=== PATIENT | female | born 1955 | race Caucasian/White ===

== ENCOUNTER → 2017-12-30 10:25 | Outpatient (CLI) | payer BC, SELFPAY ==
[2017-12-30 10:30] LABS: Red Blood Cells-Urine 0 SEEN /hpf (0-5)
[2017-12-30 12:20] LABS: Color, Urine Yellow (Yellow); Glucose, Dipstick Normal (Normal); Ketone-Dipstick Negative (Negative); Leukocyte Esterase-Dipstick 25 /ul (Negative); Nitrite-Dipstick Negative (Negative); Occult Blood-Urine Negative /ul (Negative); Protein-Dipstick 15 mg/dl (Negative); Specific Gravity, Urine 1.015 (1.002-1.030); Urine Bilirubin Dipstick Negative (Negative); Urine Clarity Cloudy (Clear); Urine Urobilinogen 4 mg/dl (Normal)
[2017-12-30 12:28] LABS: Bacteria 3+ /hpf (None Seen); Squamous Epithelial Cells - UA 25-50 SEEN /hpf (5-10); White Blood Cells 0-5 SEEN /hpf (0-5)
[2017-12-30 12:29] LABS: Mucous, Urine RARE /hpf (<or=2+)
[2017-12-30 12:49] LABS: Absolute Lymphocyte Count 2.27 X10^3/ul (0.83-4.51); Absolute Neutrophil Count 2.8 X10^3/uL (2.0-7.7); Basophil# 0.02 X10^3/uL; Basophil% 0.4 % (0-1); Eosinophil# 0.07 X10^3/uL; Eosinophils% 1.3 % (0-5); Hematocrit 43.6 % (37-47); Hemoglobin 14.3 g/dl (12.0-15.0); Lymphocyte # 2.27 X10^3/ul (4.0); Lymphocyte % 40.6 % (19-41); Mean Corp Hgb Conc 32.8 g/gl (32-36); Mean Corpuscular Hgb 32.6 pg (27.0-32.0); Mean Corpuscular Volume 99.5 fL (81-99); Mean Platelet Vol. 12.4 fl (6.2-12.0); Monocyte# 0.39 X10^3/uL; Neutrophil # 2.83 X10^3/uL (2.7-7.7); Neutrophil % 50.5 % (47-70); Platelet Count 171 K/mm3 (150-450); RBC Distribution Width CV 13.1 % (11.6-14.6); RBC Distribution Width SD 48.1 fl (35.1-43.9); Red Blood Count 4.38 M/mm3 (4.2-5.4); White Blood Count 5.6 K/mm3 (4.4-11.0)
[2017-12-30 12:50] LABS: POSITIVE COUNT NO; POSITIVE DIFFERENTIAL NO; POSITIVE MORPHOLOGY NO
[2017-12-30 13:12] LABS: BUN 14 mg/dL (7-18); Creatinine, Serum 0.86 mg/dL (0.55-1.02); Glucose 98 mg/dL (74-106)
[2017-12-30 13:13] LABS: ALB/GLOB Ratio 0.9 RATIO (0.9-2.4); AST(SGOT) 17 U/L (15-37); Alanine Aminotransfer ALT/SGPT 24 U/L (13-56); Albumin, Serum 3.5 g/dL (3.2-5.0); Alkaline Phosphatase 119 U/L (45-117); Anion Gap 6 (5-15); BUN/Creat Ratio 16.3 RATIO (10-20); Calcium,Total 8.9 mg/dL (8.5-10.1); Chloride 108 mmol/L (98-107); Cholesterol 204 mg/dL (200); EST Glomerular Filtration Rate 71 mL/min (>60); Est Glom Filt Rate - Afr Amer 86 mL/min (>60); Globulin 3.8 g/dL (2.2-4.2); High Density Lipoprotein 45 mg/dL; Protein, Total 7.3 g/dL (6.4-8.2); Sodium Level 142 mmol/L (136-145); T4 Free Direct 0.95 ng/dL (0.76-1.46); Thyroid Stim Hormone (TSH) 1.96 uIU/mL (0.358-3.74); Triglycerides 127 mg/dL; Very Low Density Lipoprotein 25 mg/dL (5-40)
== END ==
PROVIDERS: Family Provider Family Medicine; PCP Family Medicine; Visit Provider Family Medicine
DX: I10 Essential (primary) hypertension (principal); E01.0 Iodine-deficiency related diffuse (endemic) goiter; Z72.0 Tobacco use; E78.5 Hyperlipidemia, unspecified
CPT/HCPCS: 36415; 80053; 80061; 81001; 84439; 84443; 85025

== ENCOUNTER → 2018-01-06 07:38 | Outpatient (CLI) | payer BC, SELFPAY ==
--- NOTE | 2018-01-06 07:42 | US_ITS ---
STUDY: THYROID ULTRASOUND REASON FOR EXAM: Female, 62 years old. Thyromegaly TECHNIQUE: Ultrasound evaluation of the thyroid was performed with real-time and static argueta-scale imaging. COMPARISON: None. FINDINGS: RIGHT LOBE: The right lobe of the thyroid gland measures 5.4 x 1.9 x 2.0 cm. There is a homogeneous echotexture. There is a partially cystic mildly hypervascular 6 x 6 x 7 mm nodule within the right lobe of the gland. There is an additional ill-defined hyperechoic nodule within the right lobe which measures 5 x 5 x 4 mm that demonstrates no significant internal vascularity.. LEFT LOBE: The left lobe of the thyroid gland measures 4.7 x 1.4 x 1.4 cm. There is a homogeneous echotexture. There are no demonstrated solid, cystic or complex lesions. ISTHMUS: The isthmus measures 6.0 mm . US/Thyroid IMPRESSION: Enlarged thyroid gland. Two nodules within the right lobe of the gland the larger measuring up to 7 mm. Electronically Signed: Lisa Rojas MD at 17:40 EDT Tel , Service support ,
== END ==
LOC: US 07:40
PROVIDERS: Family Provider Family Medicine; PCP Family Medicine; Visit Provider Family Medicine
DX: E01.0 Iodine-deficiency related diffuse (endemic) goiter (principal)
CPT/HCPCS: 76536

== ENCOUNTER → 2018-01-20 06:24 | Outpatient (CLI) | payer BC, SELFPAY ==
--- NOTE | 2018-01-20 14:21 | PFTCOMP ---
COMPLETE PULMONARY FUNCTION TEST INTERPRETATION Brief HPI: Patient is a 62 year old female, currently under the care of Dr. Pelletier, who presents to [facility] for complete pulmonary function tests secondary to diagnosis of cough. Respiratory therapist reports good effort and reproducible results. Interpretation: Forced expiration spirometry shows no large airways obstructive ventilatory defect with an FEV1 of 82% predicted. There is no significant bronchodilator response by ATS criteria. Spirograms are of good quality and plateau normally. The respiratory flow volume loop shows a normal pattern. Lung volumes by body plethysmography show a decreased total lung capacity at 3.61 L, 68% predicted. All other lung volumes are reduced symmetrically. Diffusion capacity by carbon monoxide is decreased at 64% predicted. The airway resistance is normal. No previous pulmonary function tests were available for review. Impression: Moderate restrictive ventilatory defect with a symmetric reduction in diffusing capacity. Consider chest imaging to evaluate for interstitial lung disease if not completed previously.
== END ==
LOC: PSN 06:24
PROVIDERS: Family Provider Family Medicine; PCP Family Medicine; Visit Provider Family Medicine
DX: R05 Cough (principal)
CPT/HCPCS: 94060; 94726; 94729

== ENCOUNTER → 2018-01-27 08:47 | Outpatient (CLI) | payer BC, SELFPAY ==
--- NOTE | 2018-01-27 08:51 | RAD_ITS ---
STUDY: X-RAY CHEST REASON FOR EXAM: Female, 62 years old. Restrictive lung disease TECHNIQUE: Frontal and lateral views of the chest were obtained. COMPARISON: Chest radiographs dated March 13, 2014; chest CT dated April 13, 2014 FINDINGS: The lungs are adequately aerated. There are minimal increased markings in both lung bases. There is no demonstrated pleural abnormality. The cardiac silhouette is normal in size. The mediastinum and hilar regions are unremarkable. Normal visualized pulmonary arteries. There is atherosclerotic calcification of the thoracic aorta. There are diffuse degenerative changes of the visualized spine. There are degenerative changes in both shoulders. Cholecystectomy clips are present. RAD/Chest PA and Lateral IMPRESSION: No acute cardiopulmonary abnormalities. There is minimal atelectasis and/or scarring in the lung bases. Electronically Signed: Mariya Harris MD at 17:05 EDT Tel Direct: [phone], Service support ,
== END ==
PROVIDERS: Family Provider Family Medicine; PCP Family Medicine; Visit Provider Family Medicine
DX: J98.4 Other disorders of lung (principal)
CPT/HCPCS: 71046

== ENCOUNTER 2018-02-09 09:59 | Day surgery (SDC) | payer BC, SELFPAY ==
[2018-02-09 10:16] VITALS: BP 146/76; PULSE 58; RESP 16; TEMP 36.1; O2SAT 97; BMI 31.7
--- NOTE | 2018-02-09 11:00 | EGD_PTH ---
PATIENT: KEMAL SALGADO LOC: EN U#:[id number] AGE/SX: 62/F ROOM: RE02/09/[address]: Dr. David Palmer MD : 1955 BED: DIS: 02/09/2018 SPEC #: [id number] RECD: 02/09/18 14:21 STATUS: CARO GERHARD #: [id number] SONJA: 02/09/18 11:[address]: David Palmer DEPT: SURGICAL PATHOLOGY RECD BY: Wilton Herrera ENTERED: 02/10/18 07:34 SP TYPE: EGD BIOPSY OTHR DR: Dr. Miguel Ángel Miguel MD Tissues: Gastric mucous membrane Procedures: Surgery Specimen Level IV HEADER OPERATION: EGD ([facility] [place]) PRE-OP DIAGNOSIS: GERD, esophagitis TISSUE SUBMITTED: Gastric mass biopsy MICROSCOPIC DIAGNOSIS Gastric mass, biopsy: Fragments of hyperplastic/inflammatory polyp. Negative for malignancy. SJ:se 02/11/18 COMMENT Correlation with clinical, endoscopic findings and appropriate follow up are necessary. MICROSCOPIC DESCRIPTION Slides are reviewed. GROSS DESCRIPTION Received in fixative is one container labeled with the patient's name and designated gastric mass biopsy. The specimen consists of multiple irregular fragments of light gallardo soft tissue that in aggregate measure 0.8 x 0.5 x 0.1 cm. The specimen is totally submitted in one cassette. / SJ:se 02/10/18 TC:5 CPT: 18378
--- NOTE | 2018-02-09 11:23 | PCM.OPRPT ---
Problem List (1) Gastro-esophageal reflux disease without esophagitis Status: Acute Report of Operation Date of Procedure: 02/09/18 Pre-Operative Diagnosis: k21.9 gastroesophageal reflux disease without esophagitis Post-Operative Diagnosis: Same Surgery/Procedure Performed:: Esophagogastroduodenoscopy with biopsy Type of Anesthesia:: MAC Specimen's removed: Biopsy of Cardia of stomach near GE junction Description of Procedure: Patient was brought into the endoscopy suite. Back of her throat was sprayed with Cetacaine spray. Bite-block was placed. Graded anesthesia was given. She was placed in the left lateral decubitus position. Scope was inserted into the oropharynx and directed down through the esophagus into the stomach and into the duodenum. Operative findings: 1. Duodenum: Normal appearance no mass lesions no ulcerations. 2. Stomach: Prepyloric area looked normal. As did the body of the stomach. Retroflexion revealed an erythematous mass in the cardia very close to the GE junction I was only able to see it with retroflexion. I did obtain a few biopsies of this. The scope was unable to retroflex tightly enough upon itself for me to get any deep biopsies. It was friable and bled easily. 3. Esophagus: Normal esophagus no signs of esophagitis Z line was normal in appearance there was no signs of any masses. We will have to wait for these biopsy results to come back. If this comes back is something significant I may have my partner use an ERCP scope for possible laser ablation of this lesion. - Admit VTE Documentation VTE Present on Admission: No VTE Mechan Device Prophylaxis: None VTE Pharm Prophylaxis ordered?: No Reason prophylaxis not ordered:: Treatment Not Indicated
[2018-02-09 11:25] VITALS: BP 118/78; BP 146/76; PULSE 61; RESP 18; TEMP 36.3; O2SAT 92
[2018-02-09 11:30] VITALS: BP 126/79; BP 146/76; PULSE 60; RESP 18; O2SAT 92
[2018-02-09 11:35] VITALS: BP 122/83; BP 146/76; PULSE 58; RESP 18; O2SAT 93
[2018-02-09 11:37] VITALS: BP 118/85; BP 146/76; PULSE 58; RESP 18; TEMP 36.1; O2SAT 97
[2018-02-09 12:04] VITALS: BP 146/76
== END 2018-02-09 12:05 | disposition home or self-care (01) ==
LOC: EN 10:01 → AC 10:01
PROVIDERS: Family Provider Family Medicine; PCP Family Medicine; Visit Provider Surgery
PROC: 0DJ08ZZ Inspection of Upper Intestinal Tract, Via Natural or Artificial Opening Endoscopic (ICD-10-PCS; CPT 43235; principal; 2018-02-09 10:55)
DX: K31.7 Polyp of stomach and duodenum (principal); K21.9 Gastro-esophageal reflux disease without esophagitis; E78.00 Pure hypercholesterolemia, unspecified; I10 Essential (primary) hypertension; Z90.49 Acquired absence of other specified parts of digestive tract; F17.210 Nicotine dependence, cigarettes, uncomplicated; Z87.891 Personal history of nicotine dependence; Z79.899 Other long term (current) drug therapy
CPT/HCPCS: 43239; 88305; J7120

== ENCOUNTER 2018-04-28 06:20 | Day surgery (SDC) | payer BC, SELFPAY ==
[2018-04-28] VITALS (7 sets, daily range): BP systolic 116–135; BP diastolic 70–97; PULSE 52–69; RESP 14–18; TEMP 36.3–36.7; O2SAT 95–100; BMI 32.1
--- NOTE | 2018-04-28 | IMM_PTH ---
PATIENT: KEMAL SALGADO LOC: EN U#:[id number] AGE/SX: 62/F ROOM: RE04/28/[address]: Dr. German Henderson MD : 1955 BED: DIS: 04/28/2018 SPEC #: [id number] RECD: 04/29/18 12:18 STATUS: CARO GERHARD #: [id number] SONJA: 04/28/18 00:[address]: German Henderson DEPT: IMMUNOHISTOCHEMISTRY RECD BY: Melania Walker ENTERED: 04/29/18 12:18 SP TYPE: IMMUNO OTHR DR: Dr. Miguel Ángel Miguel MD Tissues: Stomach, NOS Procedures: H Pylori (initial) PHYSICIAN & INSTITUTION [place] [id number] SPECIMEN INFORMATION: Tissue Source: Proximal stomach biopsy Clinical Info: GERD Specimen Number: [id number] CPT code: 04746 METHODOLOGY: Deparaffinized sections of prefer/formalin-fixed tissue or PAP/DQ stained slides are incubated with monoclonal/polyclonal antibodies/oligonucleotide probes. Localization is made via biotin free immunoperoxidase method. Appropriate controls are performed and reacted as expected. Results on target cell population are indicated in the following table: RESULTS: ANTIBODY / CLONE RESULT H Pylori (polyclonal) negative These tests were developed and their performance characteristics determined by [facility]. They may not have been cleared or approved by the U.S. Food and Drug Administration. The FDA has determined that such clearance or approval is not necessary. INTERPRETATION: Proximal stomach biopsy: Negative for Helicobacter pylori organisms. STEFANO:se 04/30/18
--- NOTE | 2018-04-28 | STO_PTH ---
PATIENT: KEMAL SALGADO LOC: EN U#:[id number] AGE/SX: 62/F ROOM: RE04/28/[address]: Dr. German Henderson MD : 1955 BED: DIS: 04/28/2018 SPEC #: [id number] RECD: 04/28/18 11:34 STATUS: CARO GERHARD #: [id number] SONJA: 04/28/18 00:[address]: German Henderson DEPT: SURGICAL PATHOLOGY RECD BY: Harvey Huber ENTERED: 04/28/18 11:34 SP TYPE: STOMACH BX OTHR DR: Dr. Miguel Ángel Miguel MD Tissues: Stomach, NOS Procedures: Special Stain Group II Surgery Specimen Level IV Alcian Blue/PAS (control) HEADER OPERATION: EGD ([facility]) PRE-OP DIAGNOSIS: GERD TISSUE SUBMITTED: Proximal stomach biopsy MICROSCOPIC DIAGNOSIS Proximal stomach, biopsy: Fragments of gastric mucosa with changes consistent with inflammatory/hyperplastic polyp. Mild gastritis. Negative for malignancy. See microscopic description and comment. STEFANO:se 04/29/18 COMMENT The results of immunohistochemistry for Helicobacter pylori will be reported separately ([id number]). Alcian blue/PAS stain with matched control is used in the evaluation of the specimen to rule out and negative for intestinal metaplasia. Please make reference to previous specimen ([id number]), gastric mass, biopsy with diagnosis of fragments of hyperplastic/inflammatory polyp and negative for malignancy. MICROSCOPIC DESCRIPTION Slides are reviewed. The specimen shows fragments of gastric mucosa with chronic inflammatory cell infiltrates in the lamina propria consisting of lymphocytes and plasma cells, consistent with mild chronic gastritis and focal changes consistent with inflammatory/hyperplastic polyp. GROSS DESCRIPTION Received in fixative is one container labeled with the patient's name and designated proximal stomach biopsy. The specimen consists of multiple irregular fragments of light gallardo soft tissue that in aggregate measure 2 x 0.4 x 0.1 cm. The specimen is totally submitted in one cassette. / STEFANO:se 04/28/18 TC:5 [facility]: [id number], [id number]
--- NOTE | 2018-04-28 07:50 | OP.ENDO_ITS ---
Patient Name: Isabel Sahni Procedure Date: 04/28/2018 7:25 AM Date of : 1955 Age: 62 Procedure: Upper GI endoscopy Indications: Gastro-esophageal reflux disease. Mass just distal to GE junction Providers: German Henderson MD Medicines: Monitored Anesthesia Care Patient Profile: This is a 62 year old female. She had a mass just distal to GE junction unable to be biopsied with EGD scope due to location. Complications: No immediate complications. Estimated blood loss: Minimal. Procedure: Pre-Anesthesia Assessment: - Prior to the procedure, a History and Physical was performed, and patient medications and allergies were reviewed. The patient's tolerance of previous anesthesia was also reviewed. The risks and benefits of the procedure and the sedation options and risks were discussed with the patient. All questions were answered, and informed consent was obtained. Prior Anticoagulants: The patient has taken no previous anticoagulant or antiplatelet agents. After reviewing the risks and benefits, the patient was deemed in satisfactory condition to undergo the procedure. After obtaining informed consent, the endoscope was passed under direct vision. Throughout the procedure, the patient's blood pressure, pulse, and oxygen saturations were monitored continuously. The [id number] endoscope was introduced through the mouth, and advanced to the duodenal bulb. The upper GI endoscopy was accomplished without difficulty. The patient tolerated the procedure well. Scope In: 7:35:53 AM Scope Out: 7:43:51 AM Total Procedure Duration Time 0 hours 7 minutes 58 seconds Findings: A large, polypoid, non-circumferential mass with no bleeding and no stigmata of recent bleeding was found in the cardia. Biopsies were taken with a cold forceps for histology. 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 Biopsied. Recommendation: - Await pathology results. - Resume previous diet. - Continue present medications. - Await pathology results. - Discharge patient to home. - Physician's office will call you with pathology results and recommendations for when to repeat colonoscopy. Procedure Code(s): --- Professional --- 91193, Esophagogastroduodenoscopy, flexible, transoral; with biopsy, single or multiple Diagnosis Code(s): --- Professional --- D49.0, Neoplasm of unspecified behavior of digestive system K21.9, Gastro-esophageal reflux disease without esophagitis CPT copyright 2017 [employer]. All rights reserved. The codes documented in this report are preliminary and upon agency operator review may be revised to meet current compliance requirements. German Henderson MD 04/28/2018 7:50:09 AM This report has been signed electronically. Number of Addenda: 0 Note Initiated On: 04/28/2018 7:25 AM
== END 2018-04-28 08:32 | disposition home or self-care (01) ==
LOC: EN 06:22 → AC 06:23
PROVIDERS: Family Provider Family Medicine; PCP Family Medicine; Referring Provider Surgery; Visit Provider Surgery
PROC: 0DJ08ZZ Inspection of Upper Intestinal Tract, Via Natural or Artificial Opening Endoscopic (ICD-10-PCS; CPT 43235; principal; 2018-04-28 07:25)
DX: D49.0 Neoplasm of unspecified behavior of digestive system (principal); K29.70 Gastritis, unspecified, without bleeding; K21.9 Gastro-esophageal reflux disease without esophagitis; E78.00 Pure hypercholesterolemia, unspecified; I10 Essential (primary) hypertension; Z78.0 Asymptomatic menopausal state; Z90.49 Acquired absence of other specified parts of digestive tract; Z79.899 Other long term (current) drug therapy; F17.200 Nicotine dependence, unspecified, uncomplicated
CPT/HCPCS: 43239; 88305; 88313; 88342; J7120

== ENCOUNTER → 2020-04-11 08:22 | Outpatient (CLI) | payer MEDICAID, SELFPAY ==
--- NOTE | 2020-04-11 08:25 | BI_ITS ---
MAMMOGRAPHY - BILATERAL SCREENING REASON FOR EXAM: Female, 64 years old. Routine annual screening examination. PERTINENT HISTORY: Non-contributory. TECHNIQUE: Digital bilateral breast jennifer (3D mammographic acquisition) in the CC and MLO projections. 2-D mediolateral oblique (MLO) and craniocaudad (CC) views of both breasts were obtained. CAD: Full Field Digital Mammography with Computer Added Detection was performed. COMPARISON: None. Baseline examination. FINDINGS: Breast Composition: There are scattered areas of fibroglandular density. There are no dominant masses or suspicious calcifications. No other significant abnormalities are identified. BI/SCREEN MAMM (CAD) W/JENNIFER BILAT IMPRESSION: Negative screening mammogram. Yearly followup mammogram recommended. (A) ASSESSMENT CATEGORY: BIRADS Category 1: Negative. A letter regarding these results will be sent to the patient by the facility within 30 days. Approximately 10% of breast cancers are not detected by mammography. A normal mammogram should not delay biopsy of a clinically suspicious abnormality. [id number] Electronically Signed: Ritesh Cartwright, at 9:50 EDT , Service support ,
== END ==
PROVIDERS: PCP Family Medicine
DX: Z12.31 Encounter for screening mammogram for malignant neoplasm of breast (principal)
CPT/HCPCS: 77063; 77067

== ENCOUNTER 2020-11-30 05:46 | Day surgery (SDC) | payer MEDICAID, SELFPAY ==
--- NOTE | 2020-11-28 14:29 | HP.PCM_ITS ---
History and Physical Date of Admission: 11/30/20
--- NOTE | 2020-11-28 14:29 | PCM.HP.BLA ---
History and Physical Date of Admission: 11/30/20
--- NOTE | 2020-11-28 14:40 | PCM.HP.BLA ---
History and Physical Date of Admission: 11/30/20 Blanca Harley MD Specialty: PROGRAM ATTENDANT H&P ? Signed Encounter Date: 11/07/2020 Expand AllCollapse All Expand All by Default Hide copied text Hover for details Pre-Op History and Physical ? HPI: The patient is a 65 year old female presenting for pre-operative visit. She is scheduled for Hysteroscopy D&C with endometrial polypectomy, for PMB and endometrial polyp. Procedure discussed along with risks, benefits and complications. Other alternatives discussed for management. Consent form signed? Yes. ? ? PAST MEDICAL HISTORY PAST MEDICAL HISTORY Diagnosis Date ? Acid reflux ? ? Carotid stenosis ? ? RIGHT 20-39 % LEFT 0-19% per US 07/2015 ? Gallstones 03/03/14 ? HTN (hypertension) ? ? Hyperlipidemia ? ? Obesity ? ? Tobacco use ? ? ? PAST SURGICAL HISTORY PAST SURGICAL HISTORY Procedure Laterality Date ? COLONOSCOP W/ OR W/O BRSH SPEC ? 10/28/2013 ? Colonoscopy ? COLONOSCOP W/ OR W/O BRSH SPEC ? 01/27/2017 ? Colonoscopy ? EGD W/O OR W/BRUSH/WASH ? 05/05/2014 ? EGD ? EGD W/O OR W/BRUSH/WASH ? 09/14/2015 ? EGD ? ENDOMETRIAL BIOPSY ? 11/16/2007 ? Irregular menses/Menorrhagia ? ENDOMETRIAL BIOPSY ? 03/13/2010 ? ERCP ? 2013 ? with stent ? LAPAROSCOPIC CHOLEYCYSTECTOMY ? 03/03/2014 ? PAST SURGICAL HISTORY OF ? 03/17/2007 ? Left knee surgery ? [employer] ([place] COVID-19 VACCINE ? 10/18/2020 ? 1st injection: 09/27/20; 2nd injection: 10/18/20 ? ? ? CURRENT MEDICATIONS Current Outpatient Medications Medication Sig Dispense Refill ? ergocalciferol 50,000 unit capsule (VITAMIN D2, DRISDOL) Take 1 capsule by mouth one time a week. 12 capsule 3 ? losartan (COZAAR) 50 mg tablet Take 1 tablet by mouth once daily. 90 tablet 1 ? pantoprazole DR (PROTONIX) 40 mg tablet Take 1 tablet by mouth twice daily. Take on empty stomach, 1/2 hr before meal. 180 tablet 1 ? atorvastatin (LIPITOR) 20 mg tablet Take 1 tablet by mouth daily at bedtime. For cholesterol. 90 tablet 1 ? No current facility-administered medications for this visit. ? ? ALLERGIES: Asa [Salicylates], Codeine, Hydrocodone, Ibuprofen, Lisinopril, Oxycodone, and Phenergan [Promethazine] ? PERSONAL HISTORY: SOCIAL HISTORY Social History ? Tobacco Use ? Smoking status: Former Smoker ? ? Years: 25.00 ? ? Types: Cigarettes ? ? Start date: 03/18/2020 ? Smokeless tobacco: Never Used Substance Use Topics ? Alcohol use: No ? Drug use: No ? FAMILY HISTORY: FAMILY HISTORY FAMILY HISTORY Problem Relation Age of Onset ? Diabetes Mother ? ? Alcohol/Drug Daughter ? ? ? Diabetes Brother ? ? Diabetes Brother ? ? ? REVIEW OF SYMPTOMS: GENERAL: denies fevers or chills ENDOCRINOLOGY: has not been on steroids Cardiology : denies palpitations or chest pain Respiratory: denies SOB or cough Hematology: denies history of prolonged bleeding or easy bruising or VTE Allergy: Denies history of personal or family history of allergy to anesthesia ? PHYSICAL EXAMINATION: ? VITALS: Blood pressure 132/76, weight 211 lb (95.7 kg), last menstrual period 03/30/2010. ? GENERAL: The patient is well nourished, well hydrated in no acute distress. , The patient is oriented to time, place, and person. NECK: Supple. No lynphadenopathy, normal thyroid, no thyromegaly. LUNGS: Clear to auscultation bilaterally. no wheezes, rhonchi or rales HEART: Regular rate and rhythm, Normal heart sounds and No murmurs or gallops ? IMPRESSION: PMB, endometrial polyp ? PLAN: The risks/benefits/alternatives and personal involved for the planned hysteroscopy with polypectomy were reviewed with the patient. Her questions were answered to her satisfaction and she desires to proceed. Consent was signed. I reviewed with her postop instructions and expectations. ? ? I have reviewed and updated past medical and surgical history, medications and allergies Blanca Harley M.D. ?1:09 PM Office Visit on 11/07/2020 Office Visit on 11/07/2020 Note shared with patient
[2020-11-30] VITALS (7 sets, daily range): BP systolic 116–163; BP diastolic 70–83; PULSE 57–65; RESP 14–18; TEMP 36.4–36.8; O2SAT 93–99; BMI 34.7
[2020-11-30] MEDS: Lactated Ringers 1,000 ML 100 ML IV (06:40)
[2020-11-30] MEDS: Acetaminophen 500 MG Tablet 1000 MG PO (06:41)
[2020-11-30 06:57] LABS: Hematocrit 40.7 % (37-47); Hemoglobin 13.4 g/dL (12.0-15.0); Mean Corp Hgb Conc 32.9 g/dL (32-36); Mean Corpuscular Hgb 32.4 pg (27.0-32.0); Mean Corpuscular Volume 98.5 fL (81-99); Mean Platelet Vol. 12.2 fl (6.2-12.0); Platelet Count 168 K/mm3 (150-450); RBC Distribution Width CV 12.1 % (11.6-14.6); Red Blood Count 4.13 M/mm3 (4.2-5.4); White Blood Count 5.2 K/mm3 (4.4-11.0)
[2020-11-30 07:14] LABS: ALB/GLOB Ratio 0.9 RATIO (0.9-2.4); AST(SGOT) 15 U/L (15-37); Alanine Aminotransfer ALT/SGPT 20 U/L (13-56); Albumin, Serum 3.3 g/dL (3.2-5.0); Alkaline Phosphatase 102 U/L (45-117); Anion Gap 5 (5-15); BUN 18 mg/dL (7-18); BUN/Creat Ratio 19.7 RATIO (10-20); Calcium,Total 8.9 mg/dL (8.5-10.1); Chloride 107 mmol/L (98-107); Creatinine, Serum 0.91 mg/dL (0.55-1.02); EST Glomerular Filtration Rate 66 mL/min (>60); Est Glom Filt Rate - Afr Amer 80 mL/min (>60); Estimated Creatinine Clearance 54.64 ml/min; Globulin 3.5 g/dL (2.2-4.2); Glucose 127 mg/dL (74-106); Potassium 4.1 mmol/L (3.5-5.1); Protein, Total 6.8 g/dL (6.4-8.2); Sodium Level 140 mmol/L (136-145)
--- NOTE | 2020-11-30 07:28 | PCM.DC ---
Discharge Instructions Diet Discharge Diet: No restrictions Activity Discharge Activity: May Shower and May Take a Tub Bath (or swim in 2 weeks) Return to work on:: 12/03/20 May resume sexual activity in: 2 weeks Lifting Restrictions: none Dressing / Incision Call your doctor if your incision/area has: Sudden Increased Bleeding and Foul Smelling Discharge Call your doctor if you observe: Fever of 101 or Higher and Using more than one pad per hour (for 2 hrs in a row) Follow Up Care Please Follow Up With: Blanca Harley MD When: 2-4 weeks or as needed. Call [phone] to make an appointment or with any concerns. Test Results: Test results from this visit will be discussed in further detail at your follow-up appointment, if applicable. Discharge Plan Admission Primary Reason for Your Visit: Dilation and curettage Attending Provider: Blanca Harley Primary Care Provider: Cecily Coelho Instructions Forms: Work / School Excuse Discharge Orders/Prescriptions Prescriptions: Continued atorvastatin 20 mg tablet 20 mg PO QDAY RF: 0 losartan 50 mg Tablet 50 mg PO DAILY RF: 0 pantoprazole 40 mg Tablet,Delayed Release (Dr/Ec) 40 mg PO BID RF: 0 ergocalciferol (vitamin D2) [Vitamin D2] 1,250 mcg (50,000 unit) Capsule 1,250 mcg PO MO RF: 0 Referrals / Follow Up: Cecily Coelho PA [Primary Care Provider] - Disposition Disposition (needs filled in before D/C Order can be placed): Home, self care
--- NOTE | 2020-11-30 07:30 | EMB_PTH ---
PATIENT: KEMAL SALGADO [place] [facility] [place][id number] AGE/SX: 65/F ROOM: RE11/30/[address]: Dr. Blanca Harley MD : 1955 BED: DIS: 11/30/2020 SPEC #: [id number] RECD: 11/30/20 11:22 STATUS: CARO GERHARD #: [id number] SONJA: 11/30/20 07:[address]: Blanca Harley DEPT: SURGICAL PATHOLOGY RECD BY: Kaylie Mckeon ENTERED: 11/30/20 12:59 SP TYPE: ENDOM BX/C OTHR DR: DEVAUGHN Sorensen Tissues: Endometrium, NOS Procedures: Surgery Specimen Level IV HEADER OPERATION: Hysteroscopy, dilation and curettage, polyp resection PRE-OP DIAGNOSIS: PMB, endometrial polyp TISSUE SUBMITTED: Endometrial curettings, polyp MICROSCOPIC DIAGNOSIS Endometrial curettings and polyp: Polypoid fragments of simple cystic hyperplasia without atypia. AM:se 12/01/2020 MICROSCOPIC DESCRIPTION Slides are reviewed. GROSS DESCRIPTION Received in fixative is one container labeled with the patient's name and designated endometrial curettings, polyp. The specimen consists of multiple irregular fragments of gallardo soft tissue that in aggregate measure 5 x 3 x 0.3 cm. The entire specimen is submitted in two cassettes. / SJ:se 11/30/20 TC:5 CPT: 74998
[2020-11-30] MEDS: Lidocaine 1% /Epi 1:100 (20ml) 20 ML Vial (08:02)
--- NOTE | 2020-11-30 08:11 | PCM.OPRPT ---
Problems Associated Problem List Diagnoses (1) Endometrial polyp: Report of Operation Date of Procedure: 11/30/20 Pre-Operative Diagnosis: Endometrial polyp Post-Operative Diagnosis: Endometrial polyp Surgery/Procedure Performed:: Hysteroscopy dilation and curettage with resection of endometrial polyp Description of Surgical Findings:: Fundal uterine polyp, atrophic endometrium, normal cervix and vagina Surgeon: Blanca Harley food science professor: None Type of Anesthesia: MAC/Supplemental/Local Anesthesiologist: Manuelito Vinson Special Medications: none Specimen's removed: Endometrial curetting and polyp Drains: None Estimated Blood Loss (mL): 10 Fluids Replaced: 700 cc Description of Procedure: The patient was taken to the OR where she was prepped and draped in dorsal lithotomy position. The weighted speculum was placed in the vagina and the anterior lip of the cervix was grasped with a single-tooth tenaculum. A paracervical block was administered with [1% lidocaine with 1-100,000 epinephrine solution]. The cervix was dilated serially with Hegar dilators. The 3 mm hysteroscope was placed into the uterine cavity and the above findings were noted. The Symphion on device was then readied and the resector inserted. A visual D&C was done of the endometrial cavity as well as the polyp was resected in its entirety. Bilateral tubal ostia [were] identified. The instruments were removed from the vagina. The specimen was handed off and sent to pathology. All sponge and needle counts were correct. Vaginal sweep was performed by me. The patient was awakened and taken to the recovery room in stable condition. Calculated fluid deficit for the hysteroscopy was 450 cc of normal saline Grafts/Implants Used: none Procedure Start Time: 07:45 Procedure Stop Time: 08:00 Complications None Admit VTE Documentation VTE Present on Admission: No VTE Mechan Device Prophylaxis: SCD's VTE Pharm Prophylaxis ordered?: No Reason prophylaxis not ordered:: Procedure Not Indicated
[2020-11-30] MEDS: Ketorolac 15 MG/ML Vial IV (08:54)
[2020-11-30] MEDS: oxyCODONE 5 MG Tablet PO (08:54)
== END 2020-11-30 09:40 | disposition home or self-care (01) ==
LOC: SDC 05:49 → AC 05:51
PROVIDERS: PCP Physician Assistant; Referring Provider Obstetrics & Gynecology; Visit Provider Obstetrics & Gynecology
PROC: 0UB98ZZ Excision of Uterus, Via Natural or Artificial Opening Endoscopic (ICD-10-PCS; CPT 58558; principal; 2020-11-30 07:15)
DX: N84.0 Polyp of corpus uteri (principal); N95.0 Postmenopausal bleeding; I10 Essential (primary) hypertension; E78.5 Hyperlipidemia, unspecified; K21.9 Gastro-esophageal reflux disease without esophagitis; E66.9 Obesity, unspecified; Z68.34 Body mass index [BMI] 34.0-34.9, adult; Z79.899 Other long term (current) drug therapy; Z87.891 Personal history of nicotine dependence
CPT/HCPCS: 58558; 80053; 85027; 88305; J7120

== ENCOUNTER → 2021-12-04 | Outpatient (CLI) | payer MEDICAID, SELFPAY ==
[2021-12-04 16:05] LABS: Erythrocyte Sedimentation Rate 17 mm/hr (0-30)
[2021-12-04 16:28] LABS: AST(SGOT) 24 U/L (15-37); Alanine Aminotransfer ALT/SGPT 29 U/L (13-56); Albumin, Serum 3.7 g/dL (3.2-5.0); Alkaline Phosphatase 148 U/L (45-117); Bilirubin, Direct 0.11 mg/dL (0.00-0.30); CRP 6.53 mg/L (0.0-3.0); GGTP 34 U/L (5-55); Protein, Total 7.7 g/dL (6.4-8.2)
[2021-12-06 14:11] LABS: Anti-Centromere B Ab <0.2 AI (0.0-0.9); Anti-Chromatin <0.2 AI (0.0-0.9); Anti-Jo <0.2 AI (0.0-0.9); Anti-Scleroderma-70 AB <0.2 AI (0.0-0.9); HEPATITIS B SURFACE AG Negative (Negative); Hep C Antibodies <0.1 s/co ratio (0.0-0.9); Hepatitis A IgM Antibody Negative (Negative); Hepatitis B Core AB IgM Negative (Negative); RNP Ab <0.2 AI (0.0-0.9); SJOGREN'S Anti-SS-A test < 0.2 AI (0.0-0.9); SJOGREN'S Anti-SS-B test < 0.2 AI (0.0-0.9); Smith Ab <0.2 AI (0.0-0.9)
[2021-12-06 15:15] LABS: Anti-Mitochondrial AB <20.0 Units (0.0-20.0); Anti-dsDNA Ab <1 IU/mL (0-9)
[2021-12-06 15:18] LABS: Anti-Smooth Muscle ABS 5 Units (0-19); Carbohydrate Ag 19-9 2261 < 2 U/mL (0-35)
== END | disposition home or self-care (01) ==
LOC: LAB 14:59
PROVIDERS: Nurse Practitioner Adult Health; PCP Physician Assistant; Visit Provider Physician Assistant Medical
DX: K76.0 Fatty (change of) liver, not elsewhere classified (principal); D49.0 Neoplasm of unspecified behavior of digestive system; R74.8 Abnormal levels of other serum enzymes
CPT/HCPCS: 36415; 80074; 80076; 82977; 83516; 85652; 86140; 86225; 86235; 86301

== ENCOUNTER → 2022-01-15 | Outpatient (CLI) | payer MEDICAID, SELFPAY ==
--- NOTE | 2022-01-15 08:55 | US_ITS ---
STUDY: ABDOMINAL ULTRASOUND - RIGHT UPPER QUADRANT REASON FOR VISIT: Female, 66 years old eval liver for elastography -- FATTY LIVER TECHNIQUE: Ultrasound evaluation of the right upper quadrant was performed with real-time and static argueta-scale imaging. TECHNICAL QUALITY: Adequate. COMPARISON: None. FINDINGS: Liver: The liver measures 14.8 cm. There is increased echogenicity consistent with fatty infiltration. The bile ducts are within normal limits. There is hepatic color flow. The direction of portal flow is hepatopetal. There is no demonstrated mass lesion. Gallbladder: The patient is status post cholecystectomy. Common Bile Duct (C.B.D.): The common bile duct measures 5.9 mm. Pancreas: Normal size of the head, body and tail of the pancreas. There is increased echogenicity of the pancreas. There is no demonstrated pancreatic mass or cyst. Right Kidney: Normal size of the right kidney. The right kidney measures 10.2 cm x 4.8 cm x 4.2 cm. Normal renal cortex. The right cortex measures 1.4 cm. There is no demonstrated renal mass or cyst. There is no right hydronephrosis. US/Abdomen Limited IMPRESSION: Fatty infiltration of the liver. Status post cholecystectomy. Electronically Signed: Ritesh Cartwright MD at 12:34 EDT ,
--- NOTE | 2022-01-15 08:55 | US_ITS ---
STUDY: ABDOMINAL ULTRASOUND - ELASTOGRAPHY REASON FOR VISIT: Female, 66 years old. Fatty liver. TECHNIQUE: Liver stiffness measurements were obtained on a [employer] RS 85 ultrasound machine using a CA 1-7 probe following the SRU guidelines. 3 measurements were obtained using a 2-D-SWE method. The IQR/M was 23 % suggesting a quality data set. TECHNICAL QUALITY: Adequate. COMPARISON: Comparison is made with prior study done earlier today. FINDINGS: Liver: Fatty infiltration of the liver. Median liver stiffness measured 14 kPa. US/Elastography Parenchyma/Organ IMPRESSION: Liver stiffness measures 14 kPa compatible with F3-F4 (Moderate to severe liver fibrosis) Metavir score. with Metavir score. Electronically Signed: Ritesh Cartwright MD at 12:37 EDT ,
== END | disposition home or self-care (01) ==
LOC: US 08:54
PROVIDERS: PCP Physician Assistant; Referring Provider Nurse Practitioner Adult Health; Visit Provider Nurse Practitioner Adult Health
DX: K76.0 Fatty (change of) liver, not elsewhere classified (principal); Z90.49 Acquired absence of other specified parts of digestive tract
CPT/HCPCS: 76705; 76981

== ENCOUNTER → 2022-01-22 | Outpatient (CLI) | payer MEDICAID, SELFPAY ==
[2022-01-22 14:58] LABS: Absolute Lymphocyte Count 1.97 X10^3/uL (0.83-4.51); Basophil# 0.03 X10^3/uL; Basophil% 0.7 % (0-1); Eosinophil# 0.08 X10^3/uL; Eosinophils% 1.8 % (0-5); Hematocrit 38.9 % (37-47); Hemoglobin 13.1 g/dL (12.0-15.0); Lymphocyte # 1.97 X10^3/ul (0.83-4.51); Lymphocyte % 44.2 % (19-41); Mean Corp Hgb Conc 33.7 g/dL (32-36); Mean Corpuscular Hgb 32.8 pg (27.0-32.0); Mean Corpuscular Volume 97.3 fL (81-99); Mean Platelet Vol. 11.9 fl (6.2-12.0); Monocyte# 0.38 X10^3/uL; Monocyte% 8.5 % (0-10); NRBC Flagged by Analyzer 0 % (0-5); Neutrophil # 1.99 X10^3/uL (2.7-7.7); Neutrophil % 44.6 % (47-70); Platelet Count 163 K/mm3 (150-450); RBC Distribution Width CV 12.3 % (11.6-14.6); RBC Distribution Width SD 44.3 fl (35.1-43.9); White Blood Count 4.5 K/mm3 (4.4-11.0)
[2022-01-22 15:08] LABS: International Normalized Ratio 1.1; Prothrombin Time (Protime)PT. 13.4 SECONDS (11.7-14.9)
[2022-01-22 15:47] LABS: AST(SGOT) 17 U/L (15-37); Alanine Aminotransfer ALT/SGPT 23 U/L (13-56); Albumin, Serum 3.5 g/dL (3.2-5.0); Alkaline Phosphatase 116 U/L (45-117); Anion Gap 6 (5-15); BUN 13 mg/dL (7-18); BUN/Creat Ratio 16.4 RATIO (10-20); Calcium,Total 8.9 mg/dL (8.5-10.1); Chloride 106 mmol/L (98-107); EST Glomerular Filtration Rate 77 mL/min (>60); Est Glom Filt Rate - Afr Amer 93 mL/min (>60); Ferritin 38 ng/mL (8-252); Globulin 3.5 g/dL (2.2-4.2); Glucose 102 mg/dL (74-106); LDH 158 U/L (84-246); Potassium 3.4 mmol/L (3.5-5.1); Sodium Level 140 mmol/L (136-145)
[2022-01-22 20:15] LABS: HIV - WCH Non-Reactive (Nonreactive)
[2022-01-22 21:19] LABS: Hemoglobin A1c 5.8 % (3.8-5.6)
[2022-01-26 17:07] LABS: Angiotensin Convert Enzyme 38 U/L (14-82); Ceruloplasmin 28.5 mg/dL (19.0-39.0); Cytoplasmic Ab (C-ANCA) <1:20 titer (Neg:<1:20)
[2022-01-27 20:21] LABS: AFP, Tumor Marker 4.1 ng/mL (0.0-9.2); Copper, Serum or Plasma 116 ug/dL (80-158); Haptoglobin 251 mg/dL (37-355); Perinuclear Ab (P-ANCA) <1:20 titer (Neg:<1:20)
== END | disposition home or self-care (01) ==
LOC: LAB 14:04
PROVIDERS: PCP Physician Assistant; Referring Provider Nurse Practitioner Adult Health; Visit Provider Nurse Practitioner Adult Health
DX: K74.00 Hepatic fibrosis, unspecified (principal)
CPT/HCPCS: 36415; 80053; 82105; 82140; 82164; 82390; 82525; 82728; 83010; 83036; 83615; 85025; 85610; 86256; 86703

== ENCOUNTER → 2022-02-05 | Outpatient (CLI) | payer MEDICAID, SELFPAY ==
[2022-02-05] VITALS (9 sets, daily range): BP systolic 136–178; BP diastolic 59–94; PULSE 56–65; RESP 12–20; TEMP 36.6; O2SAT 18–146; BMI 41.1
--- NOTE | 2022-02-05 08:15 | CT_ITS ---
PROCEDURE: CT DIRECTED CORE LIVER BIOPSY INDICATION: Female, 66 years old. Liver fibrosis PHYSICIAN: Dr. KAE Maldonado CONSENT: Written informed consent was obtained having explained the risks, benefits and alternatives in detail with the patient who accepted the risks and agreed to proceed. Laboratory review and clinical assessment was performed. CONSCIOUS SEDATION PROTOCOL: The Drugs used were: 2 mg Versed, IV., and 50 mcg Fentanyl, IV. The sedation time was: 20 minutes. Conscious sedation was noted at 9:10 AM and terminated at 9:30 AM. The conscious sedation protocol was independently monitored. RADIATION DOSAGE (If Supplied By Facility): CTDIvol = ( 25 ) mGy, DLP = ( 707.79 ) mGycm Individualized dose optimization techniques were used for this CT. TECHNIQUE: Using CT image guidance with image documentation, a suitable location in the left lobe of the liver was identified. Using an anterior approach, puncture of the liver was uneventful with an 18-gauge core needle system. 4, 18-gauge core samples were obtained, and submitted in formalin to the pathologist for further assessment. Followup CT scan revealed no distinct sequelae. CT/Biopsy/Inj or Needle Placement IMPRESSION: 1. CT directed core needle biopsy of the liver, using CT image guidance with image documentation as described. 2. Conscious Sedation protocol utilized with independent monitoring. Electronically Signed: Ritesh Cartwright MD at 10:22 EDT ,
[2022-02-05 08:18] LABS: Platelet Count 169 K/mm3 (150-450)
[2022-02-05 08:50] LABS: Partial Thromboplast Time 25.5 Seconds (24.1-36.2)
[2022-02-05] MEDS: Midazolam 2 MG/2 ML Syringe IV (09:10)
[2022-02-05] MEDS: Lidocaine 2% (10 ml mdv) 10 ML Vial (09:10)
[2022-02-05] MEDS: fentaNYL 100 MCG/2 ML Ampul IV (09:11)
[2022-02-05] MEDS: 0.9% Normal Saline 250 ML IV.SOLN. (09:14)
[2022-02-05] MEDS: 0.9% Saline Lock 10 ML Syringe IV (09:14)
--- NOTE | 2022-02-05 09:28 | LIVB_PTH ---
PATIENT: KEMAL SALGADO LOC: CT U#:[id number] AGE/SX: 66/F ROOM: RE02/05/[address]: ROSIE Roblero : 1955 BED: DIS: 02/05/2022 SPEC #: [id number] RECD: 02/05/22 09:44 STATUS: CARO GERHARD #: [id number] SNOJA: 02/05/22 09:[address]: Blanca Sanches NP DEPT: SURGICAL PATHOLOGY RECD BY: Mira Milligan ENTERED: 02/05/22 10:16 SP TYPE: LIVER BX OTHR DR: DEVAUGHN Sorensen Tissues: Liver, NOS Procedures: PAS with Diastase (control) Trichrome (control) Special Stain Group II PAS Stain (control) Surgery Specimen Level V Retic (control) Iron Stain (control) HEADER OPERATION: CT-guided liver biopsy PRE-OP DIAGNOSIS: Fibrosis TISSUE SUBMITTED: Liver 18-gauge x4 left lobe liver MICROSCOPIC DIAGNOSIS Liver, left lobe, CT-guided core biopsy: Liver parenchymal tissue with focal macrovesicular steatosis and mild portal chronic inflammation. See microscopic description and comment. STEFANO:se 02/06/2022 COMMENT Correlation with clinical findings and appropriate follow up are necessary. MICROSCOPIC DESCRIPTION Slides are reviewed. The specimen shows liver parenchymal tissue with preserved lobular architecture. Hepatocytes show mild focal macrovesicular steatosis. Significant lobular inflammation is not seen. Portal area shows focal mild chronic inflammation. Interface inflammation is not seen. Iron stain shows absent iron. Reticulin stain is unremarkable. Trichrome stain does not show increased portal or periportal fibrosis. PAS stain with and without diastase does not show any abnormal accumulation of protein. All stains are performed with appropriate matched controls. GROSS DESCRIPTION Received is one container labeled with the patient's name and not further designated. The specimen consists of multiple elongated fragments of gallardo soft tissue measuring 0.7 to 2 cm in length and measuring in aggregate 2 x 0.5 x 0.1 cm. The specimen is totally submitted in one cassette. / STEFANO:se 02/05/2022 TC:5 CPT: 48375, 32100 x5
== END | disposition home or self-care (01) ==
LOC: CT 08:07
PROVIDERS: PCP Physician Assistant; Referring Provider Nurse Practitioner Adult Health; Visit Provider Nurse Practitioner Adult Health
DX: K74.00 Hepatic fibrosis, unspecified (principal); D13.6 Benign neoplasm of pancreas; I10 Essential (primary) hypertension; E78.00 Pure hypercholesterolemia, unspecified; K21.9 Gastro-esophageal reflux disease without esophagitis; Z87.891 Personal history of nicotine dependence
CPT/HCPCS: 47000; 36415; 77012; 85049; 85610; 85730; 88307; 88313; 99156; J7050; A4216

== ENCOUNTER → 2022-06-25 | Outpatient (CLI) | payer MEDICAID, SELFPAY ==
[2022-06-25 12:43] LABS: Absolute Lymphocyte Count 2.05 X10^3/uL (0.83-4.51); Basophil# 0.04 X10^3/uL; Basophil% 0.7 % (0-1); Eosinophil# 0.05 X10^3/uL; Eosinophils% 0.9 % (0-5); Hematocrit 40.2 % (37-47); Hemoglobin 13.2 g/dL (12.0-15.0); Lymphocyte # 2.05 X10^3/ul (0.83-4.51); Lymphocyte % 36.7 % (19-41); Mean Corp Hgb Conc 32.8 g/dL (32-36); Mean Corpuscular Hgb 32.6 pg (27.0-32.0); Mean Corpuscular Volume 99.3 fL (81-99); Mean Platelet Vol. 12.3 fl (6.2-12.0); Monocyte# 0.44 X10^3/uL; Monocyte% 7.9 % (0-10); NRBC Flagged by Analyzer 0 % (0-5); Neutrophil # 2.99 X10^3/uL (2.7-7.7); Neutrophil % 53.4 % (47-70); Platelet Count 190 K/mm3 (150-450); RBC Distribution Width CV 12.3 % (11.6-14.6); RBC Distribution Width SD 44.7 fl (35.1-43.9); Red Blood Count 4.05 M/mm3 (4.2-5.4); White Blood Count 5.6 K/mm3 (4.4-11.0)
[2022-06-25 14:09] LABS: AST(SGOT) 17 U/L (15-37); Alanine Aminotransfer ALT/SGPT 28 U/L (13-56); Albumin, Serum 3.5 g/dL (3.2-5.0); Alkaline Phosphatase 100 U/L (45-117); Anion Gap 5 (5-15); BUN 14 mg/dL (7-18); BUN/Creat Ratio 13.5 RATIO (10-20); CRP < 2.90 mg/L (0.0-3.0); Calcium,Total 8.9 mg/dL (8.5-10.1); Chloride 106 mmol/L (98-107); Creatinine, Serum 1.04 mg/dL (0.55-1.02); EST Glomerular Filtration Rate 57 mL/min (>60); Est Glom Filt Rate - Afr Amer 68 mL/min (>60); Globulin 3.6 g/dL (2.2-4.2); Glucose 136 mg/dL (74-106); Potassium 3.4 mmol/L (3.5-5.1); Protein, Total 7.1 g/dL (6.4-8.2); Sodium Level 140 mmol/L (136-145)
== END | disposition home or self-care (01) ==
LOC: LAB 11:49
PROVIDERS: PCP Physician Assistant; Referring Provider Nurse Practitioner Adult Health; Visit Provider Nurse Practitioner Adult Health
DX: K74.00 Hepatic fibrosis, unspecified (principal)
CPT/HCPCS: 36415; 80053; 85025; 86140

== ENCOUNTER → 2022-07-09 | Outpatient (CLI) | payer MEDICAID, SELFPAY ==
--- NOTE | 2022-07-09 09:00 | US_ITS ---
STUDY: ABDOMINAL ULTRASOUND - RIGHT UPPER QUADRANT REASON FOR VISIT: Female, 66 years old FATTY LIVER TECHNIQUE: Ultrasound evaluation of the right upper quadrant was performed with real-time and static argueta-scale imaging. TECHNICAL QUALITY: Adequate. COMPARISON: Comparison is made with prior study dated 01/15/2022. FINDINGS: Liver: The liver measures 14.6. cm. There is increased echogenicity consistent with fatty infiltration. The bile ducts are within normal limits. There is hepatic color flow. The direction of portal flow is hepatopetal. There is no demonstrated mass lesion. Gallbladder: The patient is status post cholecystectomy. Common Bile Duct (C.B.D.): The common bile duct measures 4.6 mm. Pancreas: Normal size of the head, body and tail of the pancreas. There is increased echogenicity of the pancreas. There is no demonstrated pancreatic mass or cyst. Right Kidney: Normal size of the right kidney. The right kidney measures 10.1 cm x 5.4 cm x 4.5 cm. Normal renal cortex. The right cortex measures 1.3 cm. There is no demonstrated renal mass or cyst. There is no right hydronephrosis. US/Abdomen Limited IMPRESSION: Fatty infiltration of the liver. Electronically Signed: Ritesh Cartwright MD at 9:25 EST ,
--- NOTE | 2022-07-09 09:00 | US_ITS ---
STUDY: ABDOMINAL ULTRASOUND - ELASTOGRAPHY REASON FOR VISIT: Female, 66 years old. Fatty infiltration of the liver. TECHNIQUE: Liver stiffness measurements were obtained on a [employer] RS 85 ultrasound machine using a CA 1-7 probe following the SRU guidelines. 3 measurements were obtained using a 2-D-SWE method. The IQR/M was 24% suggesting a quality data set. TECHNICAL QUALITY: Adequate. COMPARISON: Comparison is made with prior study dated 01/15/2022. FINDINGS: Liver: Fatty infiltration of the liver. Median liver stiffness measured 15 kPa. US/Elastography Parenchyma/Organ IMPRESSION: Liver stiffness measures 15 kPa compatible with F3-F4 (Moderate to severe liver fibrosis) Metavir score. Electronically Signed: Ritesh Cartwright MD at 9:31 EST ,
== END | disposition home or self-care (01) ==
LOC: US 08:56
PROVIDERS: PCP Physician Assistant; Referring Provider Nurse Practitioner Adult Health; Visit Provider Nurse Practitioner Adult Health
DX: K74.00 Hepatic fibrosis, unspecified (principal)
CPT/HCPCS: 76705; 76981

== ENCOUNTER → 2022-08-12 | Outpatient (CLI) | payer MEDICAID, SELFPAY ==
--- NOTE | 2022-08-12 12:53 | MRI_ITS ---
STUDY: MR CHOLANGIOPANCREATOGRAPHY (MRCP); MRI ABDOMEN WITHOUT IV CONTRAST REASON FOR EXAM: Female, 67 years old. Follow-up pancreatic lesion TECHNIQUE: Standard MRCP technique was utilized. Three-dimensional reconstruction images performed of the biliary system at an independent workstation and reviewed at time of dictation. . Multiphase MRI of the abdomen without IV contrast. COMPARISON: MRI 11/07/2021, CT 03/13/2014 FINDINGS: MRCP: Gall Bladder: Gall bladder is surgically absent. Cystic duct: Normal with no demonstrated fixed filling defect. Intrahepatic ducts: Normal visualized intrahepatic ducts with no demonstrated fixed filling defect, dilation or stricture. Common hepatic duct: Normal with no demonstrated fixed filling defect, dilation or stricture Common bile duct: Normal with no demonstrated fixed filling defect, dilation or stricture. Pancreatic duct: Normal with no demonstrated fixed filling defect, dilation or stricture. MRI abdomen without and with IV contrast: Visualized base of the chest is unremarkable. The visualized portions of the heart are within normal limits. Normal liver. Normal spleen. T2 bright cystic lesion posterior to the biliary duct along the pancreatic head is redemonstrated and still measures up to 1.5 cm. There is not a clear communication with the biliary tree. On T2 image 19 of series 6, the lesion could possibly be situated between the duodenum/pancreas (pancreaticoduodenal groove). Based on CTs in 2013, lesion is more likely extrinsic to the pancreas (peripancreatic fluid collection evident on image 57 of series 604 of 03/13/2014 CT is in region of residual abnormality on the current exam, image 12 series 8). No clear communication with the biliary system. Favor postinflammatory collection or possibly lymph node. Likely little clinical importance. Normal bilateral adrenal glands. Simple right renal cyst. No obvious hydronephrosis. Visualized hollow viscus structures are grossly unremarkable. The appendix is not visualized. Susceptibility artifact of the right abdomen. No retroperitoneal adenopathy. No bone marrow edema. MRI/MRCP Abdomen without Contrast IMPRESSION: 1. Normal MR Cholangiopancreatography (MRCP). 2. Cholecystectomy. 3. Small (less than 1.5 cm) focal T2 bright collection in the pancreaticoduodenal groove likely chronic peripancreatic fluid collection when correlating to prior CT 03/13/2014 (which demonstrated peripancreatic fluid collections). This has not changed significantly since prior MRI 11/07/2021. The lesion is not clearly within the pancreas and does NOT clearly communicate with the biliary system mitigating against pancreatic lesion such as IPMN. Given high likelihood of benign etiology, no specific follow-up recommendations. Electronically Signed: Dorian Villarreal ([place]), at 9:14 EST ,
== END | disposition home or self-care (01) ==
LOC: MRI 12:53
PROVIDERS: PCP Physician Assistant; Referring Provider Nurse Practitioner Adult Health; Visit Provider Nurse Practitioner Adult Health
DX: D49.0 Neoplasm of unspecified behavior of digestive system (principal)
CPT/HCPCS: 74181

== ENCOUNTER → 2023-08-12 | Outpatient (CLI) | payer MEDICAID, SELFPAY ==
--- OUTSIDE RECORDS SUMMARY | 2023-08-12 13:17 | XMS RPT_ITS | CCD ---
Author Name Unknown Address [id number] [place] [address] Organization [facility] Care Team Providers Care Business Objects Architect Name Role Phone Aristeo Arias MD Primary Care Provider PRUDENCIO COELHO Referring Unavailable ARISTEO ARIAS Primary Care Unavailable ARISTEO ARIAS Primary Care Unavailable ARISTEO ARIAS Primary Care Unavailable PRUDENCIO COELHO Referring Unavailable PRUDENCIO COELHO Attending Unavailable ARISTEO ARIAS Primary Care Unavailable ARISTEO ARIAS Primary Care Unavailable SUDHA PARSONS Referring Unavailable ARISTEO ARIAS Primary Care Unavailable SUDHA PARSONS Attending Unavailable ARISTEO ARIAS Primary Care Unavailable SUDHA PARSONS Referring Unavailable ARISTEO ARIAS Primary Care Unavailable SUDHA PARSONS Attending Unavailable ARISTEO ARIAS Primary Care Unavailable Allergies Allergy Classification Reported Allergen(s) Allergy Type Date of Onset Reaction(s) Facility (20 sources) Codeine; Translations: [CODEINE] Drug Allergy 04-29-2005 Intolerance [facility] Work Phone: (20 sources) HYDROcodone; Translations: [HYDROCODONE] Drug Allergy 04-29-2005 Cough, Vomiting, Shortness of Breath [facility] Work Phone: (20 sources) Ibuprofen; Translations: [IBUPROFEN] Drug Allergy 04-29-2005 Intolerance, GI Upset [facility] Work Phone: (20 sources) Lisinopril; Translations: [LISINOPRIL] Drug Allergy 05-02-2014 Cough [facility] Work Phone: (20 sources) oxyCODONE; Translations: [OXYCODONE] Drug Allergy 03-07-2014 GI Upset, Anaphylaxis, Other: See Comments [facility] Work Phone: (20 sources) Promethazine; Translations: [PROMETHAZINE] Drug Allergy 04-14-2014 Itching [facility] Work Phone: (20 sources) Salicylic Acid; Translations: [SALICYLATES] Drug Allergy 04-29-2005 [facility] Work Phone: (20 sources) Salicylate product Drug Allergy 04-29-2005 [facility] Work Phone: Medications Current Medications Medication Drug Class(es) Dates Sig (Normalized) Sig (Original) amoxicillin 875 mg / clavulanate 125 mg oral tablet (1 source) Penicillin-class Antibacterial Start: 11-05-2022 End: 11-10-2022 take 1 tablet by mouth twice daily amoxicillin-clav ulanic acid (AUGMENTIN) 875-125 mg per tablet Take 1 tablet by mouth twice daily for 5 days. 10 tablet 0 11/05/2022 11/10/2022 Active Completed/Discontinued Medications Medication Drug Class(es) Dates Sig (Normalized) Sig (Original) atorvastatin 40 mg oral tablet (20 sources) HMG-CoA Reductase Inhibitor Start: 10-14-2022 End: 04-14-2023 take 1 tablet by mouth once daily at bedtime for hyperlipidemia atorvastatin (LIPITOR) 40 mg tablet Indications: Mixed hyperlipidemia Take 1 tablet by mouth daily at bedtime. For cholesterol. 90 tablet 1 04/14/2023 Active Problems Active Problems Problem Classification Problem Date Documented Date Episodic/Chronic Disorders of lipid metabolism (20 sources) Mixed hyperlipidemia; Translations: [Mixed hyperlipidemia] Onset: 03-22-2013 Chronic Esophageal disorders (20 sources) Laryngopharyngeal reflux; Translations: [Gastro-esophageal reflux disease without esophagitis] Onset: 05-11-2013 Chronic Essential hypertension (20 sources) Essential hypertension; Translations: [Essential (primary) hypertension] Onset: 03-09-2013 Chronic Fluid and electrolyte disorders (2 sources) Hypokalemia; Translations: [Hypokalemia] Episodic Immunizations and screening for infectious disease (6 sources) Vaccination needed; Translations: [Encounter for immunization] Onset: 04-14-2023 Episodic Nutritional deficiencies (20 sources) Vitamin D deficiency; Translations: [Vitamin D deficiency, unspecified] Onset: 10-01-2021 Chronic Occlusion or stenosis of precerebral arteries (20 sources) Bilateral stenosis of carotid arteries; Translations: [Occlusion and stenosis of bilateral carotid arteries] Onset: 12-30-2016 Chronic Other aftercare (1 source) Other care home (current) drug therapy; Translations: [Medication management] Onset: 04-14-2023 Episodic Other and unspecified benign neoplasm (4 sources) History of polyp of colon; Translations: [Personal history of colonic polyps] Episodic Other and unspecified benign neoplasm (1 source) Tubular adenoma ; Translations: [Benign neoplasm, unspecified site] Episodic Other connective tissue disease (3 sources) Cramp in lower limb; Translations: [Cramp and spasm] Episodic Other female genital disorders (20 sources) Endometrial hyperplasia; Translations: [Endometrial hyperplasia, unspecified] Onset: 12-18-2020 01-29-2021 Chronic Other liver diseases (1 source) Steatosis of liver; Translations: [Fatty (change of) liver, not elsewhere classified] Chronic Other liver diseases (20 sources) Hepatic fibrosis; Translations: [Liver fibrosis] Onset: 01-16-2022 01-16-2022 Chronic Other liver diseases (1 source) Alkaline phosphatase level - finding; Translations: [Abnormal levels of other serum enzymes] Episodic Other liver diseases (1 source) Gamma-glutamyl transferase raised; Translations: [Abnormal levels of other serum enzymes] Episodic Other lower respiratory disease (1 source) Cough; Translations: [Acute cough] 03-21-2023 Episodic Other non-traumatic joint disorders (2 sources) Pain in right knee; Translations: [Pain in joint, lower leg] Onset: 04-14-2023 Episodic Other non-traumatic joint disorders (1 source) Pain in right shoulder; Translations: [Acute pain of right shoulder] Onset: 06-19-2023 Episodic Other non-traumatic joint disorders (1 source) Pain in left knee; Translations: [Pain in both knees, unspecified chronicity] Onset: 04-14-2023 Episodic Other nutritional; endocrine; and metabolic disorders (20 sources) Simple obesity ; Translations: [Other obesity due to excess calories] Onset: 08-31-2015 01-29-2021 Chronic Other nutritional; endocrine; and metabolic disorders (20 sources) Obese class II; Translations: [Obesity, unspecified] Onset: 08-31-2015 Chronic Other nutritional; endocrine; and metabolic disorders (1 source) Obesity, unspecified; Translations: [Obesity, Class II, BMI 35-39.9] Onset: 04-09-2022 Chronic Other upper respiratory infections (1 source) Bacterial sinusitis; Translations: [Chronic sinusitis, unspecified] Chronic Other upper respiratory infections (1 source) Acute upper respiratory infection; Translations: [Acute upper respiratory infection, unspecified] Episodic Spondylosis; intervertebral disc disorders; other back problems (1 source) Chronic low back pain; Translations: [Chronic midline low back pain without sciatica] Episodic Unclassified (1 source) Liver fibrosis; Translations: [Liver fibrosis] Onset: 01-29-2022 Past or Other Problems Problem Classification Problem Date Documented Da te Episodic/Chronic Diabetes mellitus without complication (20 sources) Hyperglycemia; Translations: [Impaired fasting glucose] Onset: 10-02-2021 Episodic Nutritional deficiencies (20 sources) Serum vitamin B12 low; Translations: [Deficiency of other specified B group vitamins] Onset: 10-02-2021 Episodic Other and unspecified benign neoplasm (20 sources) Adenomatous polyp of rectum; Translations: [Benign neoplasm of rectum] Onset: 07-17-2020 Episodic Other liver diseases (20 sources) Alkaline phosphatase raised; Translations: [Abnormal levels of other serum enzymes] Onset: 12-05-2021 Episodic Other liver diseases (20 sources) Increased vitamin B; Translations: [Abnormal levels of other serum enzymes] Onset: 10-02-2021 Episodic Other screening for suspected conditions (not mental disorders or infectious disease) (20 sources) Patient encounter status; Translations: [Encounter for screening for diabetes mellitus] Onset: 10-01-2021 Episodic Pancreatic disorders (not diabetes) (20 sources) Cyst of pancreas; Translations: [Cyst of pancreas] Onset: 11-09-2021 Episodic Screening and history of mental health and substance abuse codes (20 sources) Ex-smoker; Translations: [Personal history of nicotine dependence] Onset: 05-11-2013 Episodic Results Test Name Value Interpretation Reference Range Facil ity Vital Signs Date Time Vital Sign Value Performing Clinician Daniel thomas 03-21-2023 14:33-0400 Body temperature 97 [degF] lOy Man APRN.[facility] Work Phone: [facility] 03-21-2023 14:33-0400 Body weight 98.79 kg Oly Man METAL EXPEDITER.[employer] Work Phone: [facility] 03-21-2023 14:33-0400 Diastolic blood pressure 87 mm[Hg] Oly Man METAL EXPEDITER.GRISTMILLER Work Phone: [facility] 03-21-2023 14:33-0400 Heart rate 70 /min Olyheather Man APRN.GRISTMILLER Work Phone: [facility] 03-21-2023 14:33-0400 Respiratory rate 18 /min Oly Man METAL EXPEDITER.GRISTMILLER Work Phone: [facility] 03-21-2023 14:33-0400 SaO2% (BldA) [Mass fraction] 96 % Oly James RENETTA.GRISTMILLER Work Phone: [facility] 03-21-2023 14:33-0400 Systolic blood pressure 157 mm[Hg] Oly James METAL EXPEDITER.GRISTMILLER Work Phone: [facility] 11-05-2022 13:45-0400 Body temperature 97.81 [degF] Krislyn Aberegg PA Work Phone: [facility] 11-05-2022 13:45-0400 Body weight 100.25 kg Krislyn Aberegg PA Work Phone: [facility] 11-05-2022 13:45-0400 Diastolic blood pressure 70 mm[Hg] Krislyn Aberegg PA Work Phone: [facility] 11-05-2022 13:45-0400 Heart rate 78 /min Krislyn Aberegg PA Work Phone: [facility] 11-05-2022 13:45-0400 Respiratory rate 16 /min Krislyn Aberegg PA Work Phone: [facility] 11-05-2022 13:45-0400 SaO2% (BldA) [Mass fraction] 98 % Krislyn Aberegg PA Work Phone: [facility] 11-05-2022 13:45-0400 Systolic blood pressure 132 mm[Hg] Joao Jauregui PA Work Phone: [facility] 10-08-2022 10:12-0400 Body height 165 cm Prudencio Coelho PA-C Work Phone: [facility] 10-08-2022 10:12-0400 Body temperature 97.39 [degF] Prudencio Coelho PA-C Work Phone: [facility] 10-08-2022 10:12-0400 Body weight 97.52 kg Prudencio Coelho PA-C Work Phone: [facility] 10-08-2022 10:12-0400 Diastolic blood pressure 88 mm[Hg] Prudencio Coelho PA-C Work Phone: [facility] 10-08-2022 10:12-0400 Heart rate 60 /min Prudencio Coelho PA-C Work Phone: [facility] 10-08-2022 10:12-0400 Respiratory rate 18 /min Prudencio Coelho PA-C Work Phone: [facility] 10-08-2022 10:12-0400 Systolic blood pressure 132 mm[Hg] Prudencio Coelho PA-C Work Phone: [facility] 05-20-2022 11:31-0500 Body temperature 97.81 [degF] Hal Desai MD Work Phone: [facility] 05-20-2022 11:31-0500 Body weight 97.98 kg Hal Desai MD Work Phone: [facility] 05-20-2022 11:31-0500 Diastolic blood pressure 76 mm[Hg] Hal Desai MD Work Phone: [facility] 05-20-2022 11:31-0500 Heart rate 70 /min Hal Desai MD Work Phone: [facility] 05-20-2022 11:31-0500 Respiratory rate 16 /min Hal Desai MD Work Phone: [facility] 05-20-2022 11:31-0500 SaO2% (BldA) [Mass fraction] 98 % Hal Desai MD Work Phone: [facility] 05-20-2022 11:31-0500 Systolic blood pressure 124 mm[Hg] Hal Desai MD Work Phone: [facility] 05-14-2022 09:30-0400 Body height 160 cm Florencia Sturgeon PA-C Work Phone: [facility] 05-14-2022 09:30-0400 Body temperature 97.11 [degF] Florencia Sturgeon PA-C Work Phone: [facility] 05-14-2022 09:30-0400 Body weight 99.34 kg Florencia Sturgeon PA-C Work Phone: [facility] 05-14-2022 09:30-0400 Diastolic blood pressure 84 mm[Hg] Florencia Sturgeon PA-C Work Phone: [facility] 05-14-2022 09:30-0400 Heart rate 72 /min Florencia Louann PA-C Work Phone: [facility] 05-14-2022 09:30-0400 SaO2% (BldA) [Mass fraction] 96 % Florencia Louann PA-C Work Phone: [facility] 05-14-2022 09:30-0400 Systolic blood pressure 152 mm[Hg] Florencia Louann PA-C Work Phone: [facility] 05-07-2022 10:28-0400 Body temperature 97.9 [degF] Prudencio Coelho PA-C Work Phone: [facility] 05-07-2022 10:28-0400 Body weight 98.43 kg Prudencio Coelho PA-C Work Phone: [facility] 05-07-2022 10:28-0400 Diastolic blood pressure 80 mm[Hg] Prudencio Coelho PA-C Work Phone: [facility] 05-07-2022 10:28-0400 Heart rate 68 /min Prudencio Coelho PA-C Work Phone: [facility] 05-07-2022 10:28-0400 Respiratory rate 18 /min Prudencio CANTOR-C Work Phone: [facility] 05-07-2022 10:28-0400 Systolic blood pressure 112 mm[Hg] Prudencio Coelho PA-C Work Phone: [facility] 04-09-2022 09:23-0400 Diastolic blood pressure 84 mm[Hg] Aristeo Arias MD Work Phone: [facility] 04-09-2022 09:23-0400 Systolic blood pressure 164 mm[Hg] Aristeo Arias MD Work Phone: [facility] 04-09-2022 09:00-0400 Body weight 100.25 kg Aristeo Arias MD Work Phone: [facility] 04-09-2022 09:00-0400 Heart rate 72 /min Aristeo Arias MD Work Phone: [facility] 04-09-2022 09:00-0400 Respiratory rate 16 /min Aristeo rAias MD Work Phone: [facility] 03-12-2022 12:18-0400 Diastolic blood pressure 72 mm[Hg] Riley Farrell MD Work Phone: [facility] 03-12-2022 12:18-0400 Heart rate 61 /min Riley Farrell MD Work Phone: [facility] 03-12-2022 12:18-0400 Respiratory rate 16 /min Riley Farrell MD Work Phone: [facility] 03-12-2022 12:18-0400 SaO2% (BldA) [Mass fraction] 94 % Riley Farrell MD Work Phone: [facility] 03-12-2022 12:18-0400 Systolic blood pressure 133 mm[Hg] Riley Farrell MD Work Phone: [facility] 03-12-2022 10:00-0400 Body temperature 97.39 [degF] Riley Farrell MD Work Phone: [facility] 01-08-2022 13:04-0400 Body temperature 98.29 [degF] Prudencio Coelho PA-C Work Phone: [facility] 01-08-2022 13:04-0400 Body weight 99.34 kg Prudencio Coelho PA-C Work Phone: [facility] 01-08-2022 13:04-0400 Diastolic blood pressure 64 mm[Hg] Prudencio Coelho PA-C Work Phone: [facility] 01-08-2022 13:04-0400 Heart rate 68 /min Prudencio Coelho PA-C Work Phone: [facility] 01-08-2022 13:04-0400 Respiratory rate 18 /min Prudencio Coelho PA-C Work Phone: [facility] 01-08-2022 13:04-0400 Systolic blood pressure 110 mm[Hg] Prudencio Coelho PA-C Work Phone: [facility] 12-25-2021 10:33-0400 Diastolic blood pressure 89 mm[Hg] Prudencio Coelho PA-C Work Phone: [facility] 12-25-2021 10:33-0400 Heart rate 70 /min Prudencio Coelho PA-C Work Phone: [facility] 12-25-2021 10:33-0400 Systolic blood pressure 163 mm[Hg] Prudencio Coelho PA-C Work Phone: [facility] 12-25-2021 10:17-0400 Body temperature 98.01 [degF] Prudencio Coelho PA-C Work Phone: [facility] 12-25-2021 10:17-0400 Body weight 98.88 kg Prudencio Coelho PA-C Work Phone: [facility] 12-25-2021 10:17-0400 Respiratory rate 18 /min Prudencio Coelho PA-C Work Phone: [facility] 12-25-2021 10:17-0400 SaO2% (BldA) [Mass fraction] 98 % Prudencio Coelho PA-C Work Phone: [facility] 12-24-2021 11:00-0400 Diastolic blood pressure 94 mm[Hg] David Palmer MD Work Phone: [facility] 12-24-2021 11:00-0400 Heart rate 68 /min David Palmer MD Work Phone: [facility] 12-24-2021 11:00-0400 Respiratory rate 16 /min David Palmre MD Work Phone: [facility] 12-24-2021 11:00-0400 SaO2% (BldA) [Mass fraction] 92 % David Palmer MD Work Phone: [facility] 12-24-2021 11:00-0400 Systolic blood pressure 178 mm[Hg] David Palmer MD Work Phone: [facility] 12-24-2021 09:00-0400 Body temperature 97 [degF] David Palmer MD Work Phone: [facility] 12-24-2021 09:00-0400 Body weight 100.6 kg David Palmer MD Work Phone: [facility] 12-06-2021 08:15-0400 Body temperature 97.81 [degF] Hal Desai MD Work Phone: [facility] 12-06-2021 08:15-0400 Body weight 100.61 kg Hal Desai MD Work Phone: [facility] 12-06-2021 08:15-0400 Diastolic blood pressure 82 mm[Hg] Hal Desai MD Work Phone: [facility] 12-06-2021 08:15-0400 Heart rate 77 /min Hal Desai MD Work Phone: [facility] 12-06-2021 08:15-0400 Respiratory rate 16 /min Hal Desai MD Work Phone: [facility] 12-06-2021 08:15-0400 SaO2% (BldA) [Mass fraction] 97 % Hal Desai MD Work Phone: [facility] 12-06-2021 08:15-0400 Systolic blood pressure 144 mm[Hg] Hal Desai MD Work Phone: [facility] 10-22-2021 14:27-0400 Diastolic blood pressure 81 mm[Hg] Mi Nurse Work Phone: [facility] 10-22-2021 14:27-0400 Heart rate 74 /min Mi Nurse Work Phone: [facility] 10-22-2021 14:27-0400 Systolic blood pressure 124 mm[Hg] Mi Nurse Work Phone: [facility] 10-01-2021 13:37-0400 Diastolic blood pressure 89 mm[Hg] Prudencio Coelho PA-C Work Phone: [facility] 10-01-2021 13:37-0400 Systolic blood pressure 174 mm[Hg] Prudencio Coelho PA-C Work Phone: [facility] 10-01-2021 12:22-0400 Body height 164.5 cm Prudencio Coelho PA-C Work Phone: [facility] 10-01-2021 12:22-0400 Body temperature 98.01 [degF] Prudencio Coelho PA-C Work Phone: [facility] 10-01-2021 12:22-0400 Body weight 99.79 kg Prudencio CANTOR-C Work Phone: [facility] 10-01-2021 12:22-0400 Heart rate 72 /min Prudencio Coelho PA-C Work Phone: [facility] 10-01-2021 12:22-0400 Respiratory rate 18 /min Prudencio Coelho PA-C Work Phone: [facility] Encounters Encounter Date Encounter Type Care Provider Facility Start: 06-19-2023 End: 06-20-2023 ambulatory ARISTEO ARIAS Facility:[facility] Start: 04-15-2023 Telephone encounter Sudha woodruff METAL EXPEDITER.GRISTMILLER Work Phone: [facility] Procedures Date Procedure Procedure Detail Performing Clinician Start: 12-10-2022 End: 12-10-2022 Mammography Prudencio Nixon Work Phone: Start: 10-08-2022 Lipid 1996 panel - S rocky or Plasma Sudha Parsons METAL EXPEDITER.GRISTMILLER Work Phone: Start: 06-25-2022 CBC W/DIFF/PLT ([facility]) [facility] Provider Start: 06-25-2022 Comprehensive metabo lic 2000 panel - Serum or Plasma [facility] Provider Start: 04-29-2022 INFLUENZA VACCINE QUADRIVALENT 6 MO - 64 YRS IM Prudencio Coelho PA-C Work Phone: Start: 04-29-2022 [facility]ER[facility] COVI D-19 BIVALENT BOOSTER VACCINE, AGE 12+ YR Prudencio Coelho PA-C Work Phone: Start: 03-12-2022 Colonoscopy flx dx w /collj spec when pfrmd David Palmer MD Work Phone: Start: 03-12-2022 Colonoscopy Riley orlando MD Work Phone: Start: 01-22-2022 Hemoglobin A1c/Hemoglobin.total in Blood [facility] Provider Start: 01-08-2022 Adult depression scr eening assessment Prudencio Coelho PA-C Work Phone: Start: 12-24-2021 Colon ca scrn not hi rsk ind Florencia Lew PA-C Work Phone: Start: 12-24-2021 Colonoscopy David marlow MD Work Phone: Start: 11-07-2021 Mri abdomen w/o & w/contrast material Prudencio Coelho PA-C Work Phone: Start: 10-29-2021 SRINATH SCREENING W JENNIFER Coelho PA-C Work Phone: Start: 10-29-2021 Mammography Screen Wst r Start: 10-15-2021 Us abdominal real ti me w/image limited Prudencio Coelho PA-C Work Phone: Start: 04-11-2020 Mammography Prudencio nogueira PA-C Work Phone: Start: 01-27-2017 Colonoscopy Prudencio nogueira PA-C Work Phone: Start: 02-01-2016 Adult depression scr eening assessment Prudencio Coelho PA-C Work Phone: Plan of Treatment Date Care Activity Detail Author Start: 10-02-2031 Urine microalbumin profile [facility] Start: 10-09-2027 Lipid 1996 panel - Serum or Plasma Lipid Screening [facility] Start: 10-09-2027 LIPID SCREEN LIPID SCREEN [facility] Start: 04-09-2027 LIPID SCREEN LIPID SCREEN [facility] Start: 10-01-2026 LIPID SCREEN LIPID SCREEN [facility] Start: 04-14-2026 Diabetes Screening Diabetes Screening [facility] Start: 02-05-2026 LIPID SCREEN LIPID SCREEN [facility] Start: 10-24-2025 HPV TESTING HPV TESTING [facility] Start: 10-24-2025 PAP TESTING PAP TESTING [facility] Start: 10-08-2025 DIABETES SCREEN DIABETES SCREEN [facility] Start: 06-25-2025 DIABETES SCREEN DIABETES SCREEN [facility] Start: 04-09-2025 DIABETES SCREEN DIABETES SCREEN [facility] Start: 03-12-2025 Colonoscopy COLONOSCOPY [facility] Start: 03-12-2025 COLORECTAL CANCER SCREENING COLORECTAL CANCER SCREENING [facility] Start: 01-22-2025 DIABETES SCREEN DIABETES SCREEN [facility] Start: 01-08-2025 DIABETES SCREEN DIABETES SCREEN [facility] Start: 12-24-2024 Colonoscopy COLONOSCOPY [facility] Start: 12-24-2024 COLORECTAL CANCER SCREENING COLORECTAL CANCER SCREENING [facility] Start: 10-08-2024 DIABETES SCREEN DIABETES SCREEN [facility] Start: 10-01-2024 DIABETES SCREEN DIABETES SCREEN [facility] Start: 04-14-2024 Annual PCP Team Chronic Disease Visit Annual PCP Team Chronic Disease Visit [facility] Start: 02-06-2024 DIABETES SCREEN DIABETES SCREEN [facility] Start: 12-11-2023 Mammography [facility] Start: 10-09-2023 ANNUAL PCP TEAM CHRONIC DISEASE VISIT ANNUAL PCP TEAM CHRONIC DISEASE VISIT [facility] Start: 08-15-2023 Covid-19 Vaccine (6 - Pfizer series) Covid-19 Vaccine (6 - Pfizer series) [facility] Start: 06-03-2023 ANNUAL PCP TEAM CHRONIC DISEASE VISIT ANNUAL PCP TEAM CHRONIC DISEASE VISIT [facility] Start: 06-03-2023 BP CONTROLLED (<130/80) BP CONTROLLED (<130/80) [facility] Start: 05-20-2023 BP CONTROLLED (<130/80) BP CONTROLLED (<130/80) [facility] Start: 05-07-2023 ANNUAL PCP TEAM CHRONIC DISEASE VISIT ANNUAL PCP TEAM CHRONIC DISEASE VISIT [facility] Start: 04-22-2023 End: 06-22-2023 Basic metabolic 2000 panel - Serum or Plasma BASIC METABOLIC [facility] Lab Routine Hypokalemia Expected: 04/22/2023, Expires: 06/22/[address] [facility] Work Phone: Immunizations Immunization Date Immunization Notes Care Provider Fa paige 04-14-2023 COVID-19 vaccine, ag e 12+ yr, 2022- season (PFIZER-BIONTECH) Sudha Parsons APRN.GRISTMILLER Work Phone: [facility] 04-14-2023 zoster vaccine recombinant Sudha Parsons APRN.GRISTMILLER Work Phone: [facility] 03-21-2023 influenza, high dose seasonal, preservative-free Oly Man APRN.GRISTMILLER Work Phone: [facility] 10-08-2022 pneumococcal polysaccharide vaccine, 23 valent Prudencio Coelho PA-C Work Phone: [facility] 10-08-2022 zoster vaccine recombinant Prudencio Coelho PA-C Work Phone: [facility] 04-29-2022 COVID-19 booster vaccine, age 12+ yr, bivalent (PFIZER-BIONTECH) Ia Nurse Work Phone: [facility] Work Phone: 10-17-2022 influenza, injectabl e, quadrivalent, contains preservative Mi Nurse Work Phone: [facility] Work Phone: 10-01-2021 pneumococcal conjuga te vaccine, 13 valent Prudencio CANTOR-C Work Phone: [facility] 10-01-2021 tetanus toxoid, redu patricia diphtheria toxoid, and acellular pertussis vaccine, adsorbed Prudencio Coelho PA-C Work Phone: [facility] 10-18-2020 COVID-19 vaccine, ag e 12+ yr (PFIZER-BIONTECH - PURPLE TOP) Prudencio CANTOR-C Work Phone: [facility] Work Phone: 09-27-2020 COVID-19 vaccine, ag e 12+ yr (PFIZER-BIONTECH - PURPLE TOP) Prudencio CANTOR-C Work Phone: [facility] Work Phone: 06-13-2020 influenza, seasonal, injectable Prudencio CANTOR-C Work Phone: [facility] 08-12-2016 influenza, injectabl e, quadrivalent, contains preservative Prudencio CANTOR-C Work Phone: [facility] 07-06-2015 influenza, injectabl e, quadrivalent, contains preservative Prudencio CANTOR-C Work Phone: [facility] 05-23-2014 influenza, seasonal, injectable Prudencio CANTOR-C Work Phone: [facility] 12-14-2007 tetanus and diphther ia toxoids, adsorbed, preservative free, for adult use (2 Lf of tetanus toxoid and 2 Lf of diphtheria toxoid) Prudencio Coelho PA-C Work Phone: [facility] Payers Date Payer Category Payer Medicaid [id number] 2019 Medicaid [employer] [id number] 2019-Present [phone] [address] [place] [address] Medicaid [id number] 2019 Medicaid [id number] Social History Date Type Detail Facility Start: 07-17-2020 End: 10-08-2022 Tobacco smoking status NHIS Ex-smoker [facility] Start: 03-18-2020 End: 07-14-2012 History of tobacco use Cigarette Smoker [facility] Start: 07-17-2020 End: 10-08-2022 Tobacco use and exposure Smokeless tobacco non-user [facility] Start: 10-01-2021 End: 11-05-2022 Alcohol intake Current non-drinker of alcohol (finding) [facility] Start: 1955 Sex Assigned At Not on file C [facility] Start: 09-21-2021 End: 06-03-2022 Exposure to SARS-CoV-2 (event) Not sure [facility] Start: 03-18-2020 End: 07-14-2012 History of tobacco use Current smoker [facility] Start: 07-26-2022 End: 03-21-2023 History of Social function [facility] Work Phone: Start: 07-26-2022 End: 03-21-2023 Tobacco use panel [facility] Work Phone: Adult Depression Screening Assessment 0 [facility] Work Phone: Clinical Notes 04-01-2014 to 06-19-2023 Telephone Encounter - Cielo Romero Cma - 04/15/2023 10:38 AM EDTTelephone Encounter - Sudha Parsons APRN.GRISTMILLER - 04/15/2023 10:18 AM Oly Naik APRN.GRISTMILLER - 03/21/2023 2:40 PM EDT Note Date & Type Note Facility 06-19-2023 Note HNO ID: [id number] Author: Giselle Robles RT(R) Service: Radiology Author Type: Technologist Type: Progress Notes Filed: 06/19/2023 3:03 PM Note Text: Radiology Service Progress Note PATIENT NAME: Isabel Sahni DATE OF SERVICE: June 19, 2023 TIME: 2:52 PM PATIENT IDENTITY VERIFICATION COMPLETED USING TWO (2) IDENTIFIERS: Name and Date of confirmed by patient verbally. FALL SCREENING: Has the patient had 2 falls in the last year or 1 fall with injury or currently using an Ambulatory Assistive Device (Walker, Cane, Wheelchair, Crutches, etc.)? No PATIENT GENDER DATA: Female. status: : No status: NO. PATIENT RELEVANT IMPLANT DATA REVIEWED: Yes RADIOLOGY DEPARTMENT: General X-ray: Exam(s) Completed: Upper Extremity X-Ray(s): Shoulder, AP / TRUE AP right PERIPHERAL IV DATA: Not applicable SIGNED BY: RT Lanny(R) June 19, 2023 2:52 PM [facility] 06-19-2023 Note HNO ID: [id number] Author: Sudha Parsons APRN.GRISTMILLER Service: ? Author Type: Nurse Practitioner Type: Progress Notes Filed: 06/19/2023 2:41 PM Note Text: Chief Complaint Patient presents with: Pain (Shoulder Pain): Right shoulder X 2 weeks HPI Isabel Sahni is a 67 year old female who presents here today for Above Complaints.. Patient presents with right shoulder pain for 2 weeks. Patient reports limited ROM and pain with movement which started out mild and is gradually getting worse over the past two weeks. Patient reports she gets a shooting sensation through her shoulder and down her arm at times. Patient reports she has been using tylenol, ice and heat with no change in pain level. Past medical history, appointments, medications, allergies reviewed. Previous Medical History PAST MEDICAL HISTORY Diagnosis Date Arthritis Carotid stenosis, bilateral 12/30/2016 US 02/2021 20-40% b/l Elevated alkaline phosphatase level 12/05/[address] Corona Elevated fasting glucose 10/02/2021 Elevated vitamin B12 level 10/02/2021 Endometrial hyperplasia without atypia 12/18/2020 December 18, 2020 Elects for repeat EMB in 6 months. Blanca Harley MD Essential hypertension 03/09/2013 Former smoker 05/11/2013 Gallstones 03/03/2014 Liver fibrosis 01/16/2022 Seeing Gastro- dr. corona LPRD (laryngopharyngeal reflux disease) 05/11/[address] Corona Mixed hyperlipidemia 03/22/2013 Obesity, Class II, BMI 35-39.9 08/31/2015 Pancreatic cyst 11/09/2021 MRI 10/2021. Suspect IPMN. Consult to gastro placed. Tubular adenoma polyp of rectum 07/17/[address] Corona Vitamin D deficiency 10/01/2021 Well adult exam 07/17/2020 Last done: 10/01/2021 Previous Surgical History PAST SURGICAL HISTORY Procedure Laterality Date ABDOMINAL SURGERY HX COLONOSCOPY 03/12/2022 repeat in 1 year d/t large adenomatous polyps removed piecemeal COLONOSCOPY FLX DX W/COLLJ SPEC WHEN PFRMD 10/28/2013 Colonoscopy COLONOSCOPY FLX DX W/COLLJ SPEC WHEN PFRMD 01/27/2017 Colonoscopy ENDOMETRIAL BX W/WO ENDOCERVIX BX W/O DILAT SPX 11/16/2007 Irregular menses/Menorrhagia ENDOMETRIAL BX W/WO ENDOCERVIX BX W/O DILAT SPX 03/13/2010 ERCP 2014 with stent ESOPHAGOGASTRODUODENOSCOPY TRANSORAL DIAGNOSTIC 05/05/2014 EGD ESOPHAGOGASTRODUODENOSCOPY TRANSORAL DIAGNOSTIC 09/14/2015 EGD HYSTEROSCOPY BX ENDOMETRIUMAND/POLYPC W/WO DANDC N/A 11/30/2020 resection of endometrial polyps LAPAROSCOPY SURG CHOLECYSTECTOMY 03/03/2014 PAST SURGICAL HISTORY OF 03/17/2007 Left knee surgery TONSILLECTOMY HX Family History FAMILY HISTORY Problem Relation Age of Onset Diabetes Mother Alcohol/Drug Daughter Diabetes Brother Diabetes Brother Patient Allergies ALLERGIES Allergen Reactions Asa [Salicylates] Hives Phenergan [Prometha* Itching suppositiries Codeine Intolerance Hydrocodone Cough, Vomiting, Shortness of Breath Ibuprofen Intolerance, GI Upset Lisinopril Cough Oxycodone GI Upset, Anaphylaxis, Other: See Comments Body aches. Hot flashes Current Medications Current Outpatient Medications on File Prior to Visit Medication Sig potassium chloride (K-TAB) 10 mEq tablet Take 1 tablet by mouth daily with breakfast. atorvastatin (LIPITOR) 40 mg tablet Take 1 tablet by mouth daily at bedtime. For cholesterol. pantoprazole DR (PROTONIX) 40 mg tablet Take 1 tablet by mouth two times a day. Take on empty stomach, 1/2 hr before meal. losartan (COZAAR) 100 mg tablet Take 1 tablet by mouth once daily. diclofenac (VOLTAREN) 1 % topical gel Apply 4 g to affected area four times daily. hydroCHLOROthiazide 25 mg tablet Take 1 tablet by mouth once daily. loratadine (CLARITIN) 10 mg tablet Take 1 tablet by mouth once daily. cyclobenzaprine (FLEXERIL) 10 mg tablet Take 1 tablet by mouth three times daily as needed for muscle spasm. cyanocobalamin (VITAMIN B-12) 1,000 mcg tab Take 1 tablet by mouth once daily. Vitamin E, dl, acetate, (VITAMIN E) 400 unit capsule Take 1 capsule by mouth twice daily. Per Gastro: Dr. Corona ursodiol (ACTIGALL) 300 mg capsule Take 1 capsule by mouth twice daily. Per Gastro: Dr. Corona ergocalciferol 50,000 unit capsule (VITAMIN D2, DRISDOL) Take 1 capsule by mouth one time a week. No current facility-administered medications on file prior to visit. Social History Social History Tobacco Use Smoking status: Former Years: 25 Types: Cigarettes Quit date: 2012 Years since quittin.9 Smokeless tobacco: Never Vaping Use Vaping Use: Never used Substance Use Topics Alcohol use: No Drug use: No Review of Symptoms REVIEW OF SYSTEMS SEE HPI EXAM: BP 115/77 Pulse 78 Resp 16 Wt 97.5 kg (215 lb) LMP 03/12/2010 BMI 35.82 kg/m? General Appearance: Well appearing, alert, in no acute distress, well-hydrated, well nourished.. Musculoskeletal: Positive findings: joint location: on right shoulder pa (more content not included)... [facility] 04-15-2023 Miscellaneous Notes Patient notified and verbalized understanding Cielo Romero Cma Please let patient know her potassium is low and likely contributing to her leg cramps. I have ordered potassium supplementation and want her to repeat her labs in 1 week. documented in this encounter [facility] 04-14-2023 Note HNO ID: [id number] Author: Knoble, Sudha, METAL EXPEDITER.GRISTMILLER Service: ? Author Type: Nurse Practitioner Type: Progress Notes Filed: 04/14/2023 3:57 PM Note Text: Chief Complaint Patient presents with: 6 Month Exam HPI Isabel Sahni is a 67 year old female who presents here today for Above Complaints.. HTN: Patient is compliant with meds Yes Monitors bp at home: No. Denies side effects: No. Chest pain: No. Dyspnea: No. Edema: No. Palpitations: No. Syncope: No. Headache: No. Dizziness: No. HYPERLIPIDEMIA: Patient is taking medications: Yes. Patient is watching diet: Yes. Patient denies myalgias: No. Patient denies gi upset: No GERD: well controlled with medications. Sees Dr. Corona on 04/21 C/O bilateral calf cramps happens most often when sleeping or sitting at home. Left sided low back pain for 2 days- states it feels like a cramp, thinks she hurt it at work. Works at [employer] and stands a lot throughout her shift. Past medical history, appointments, medications, allergies reviewed. Previous Medical History PAST MEDICAL HISTORY Diagnosis Date Arthritis Carotid stenosis, bilateral 12/30/2016 US 02/2021 20-40% b/l Elevated alkaline phosphatase level 12/05/[address] Corona Elevated fasting glucose 10/02/2021 Elevated vitamin B12 level 10/02/2021 Endometrial hyperplasia without atypia 12/18/2020 December 18, 2020 Elects for repeat EMB in 6 months. Blanca Harley MD Essential hypertension 03/09/2013 Former smoker 05/11/2013 Gallstones 03/03/2014 Liver fibrosis 01/16/2022 Seeing Gastro- dr. corona LPRD (laryngopharyngeal reflux disease) 05/11/[address] Corona Mixed hyperlipidemia 03/22/2013 Obesity, Class II, BMI 35-39.9 08/31/2015 Pancreatic cyst 11/09/2021 MRI 10/2021. Suspect IPMN. Consult to gastro placed. Tubular adenoma polyp of rectum 07/17/[address] Corona Vitamin D deficiency 10/01/2021 Well adult exam 07/17/2020 Last done: 10/01/2021 Previous Surgical History PAST SURGICAL HISTORY Procedure Laterality Date ABDOMINAL SURGERY HX COLONOSCOPY 03/12/2022 repeat in 1 year d/t large adenomatous polyps removed piecemeal COLONOSCOPY FLX DX W/COLLJ SPEC WHEN PFRMD 10/28/2013 Colonoscopy COLONOSCOPY FLX DX W/COLLJ SPEC WHEN PFRMD 01/27/2017 Colonoscopy ENDOMETRIAL BX W/WO ENDOCERVIX BX W/O DILAT SPX 11/16/2007 Irregular menses/Menorrhagia ENDOMETRIAL BX W/WO ENDOCERVIX BX W/O DILAT SPX 03/13/2010 ERCP 2014 with stent ESOPHAGOGASTRODUODENOSCOPY TRANSORAL DIAGNOSTIC 05/05/2014 EGD ESOPHAGOGASTRODUODENOSCOPY TRANSORAL DIAGNOSTIC 09/14/2015 EGD HYSTEROSCOPY BX ENDOMETRIUMAND/POLYPC W/WO DANDC N/A 11/30/2020 resection of endometrial polyps LAPAROSCOPY SURG CHOLECYSTECTOMY 03/03/2014 PAST SURGICAL HISTORY OF 03/17/2007 Left knee surgery TONSILLECTOMY HX Family History FAMILY HISTORY Problem Relation Age of Onset Diabetes Mother Alcohol/Drug Daughter Diabetes Brother Diabetes Brother Patient Allergies ALLERGIES Allergen Reactions Asa [Salicylates] Hives Phenergan [Prometha* Itching suppositiries Codeine Intolerance Hydrocodone Cough, Vomiting, Shortness of Breath Ibuprofen Intolerance, GI Upset Lisinopril Cough Oxycodone GI Upset, Anaphylaxis, Other: See Comments Body aches. Hot flashes Current Medications Current Outpatient Medications on File Prior to Visit Medication Sig loratadine (CLARITIN) 10 mg tablet Take 1 tablet by mouth once daily. atorvastatin (LIPITOR) 40 mg tablet Take 1 tablet by mouth daily at bedtime. For cholesterol. hydroCHLOROthiazide 25 mg tablet Take 1 tablet by mouth once daily. cyclobenzaprine (FLEXERIL) 10 mg tablet Take 1 tablet by mouth three times daily as needed for muscle spasm. cyanocobalamin (VITAMIN B-12) 1,000 mcg tab Take 1 tablet by mouth once daily. pantoprazole DR (PROTONIX) 40 mg tablet Take 1 tablet by mouth twice daily. Take on empty stomach, 1/2 hr before meal. losartan (COZAAR) 100 mg tablet Take 1 tablet by mouth once daily. diclofenac (VOLTAREN) 1 % topical gel Apply 4 g to affected area four times daily. Vitamin E, dl, acetate, (VITAMIN E) 400 unit capsule Take 1 capsule by mouth twice daily. Per Gastro: Dr. Corona ursodiol (ACTIGALL) 300 mg capsule Take 1 capsule by mouth twice daily. Per Gastro: Dr. Corona ergocalciferol 50,000 unit capsule (VITAMIN D2, DRISDOL) Take 1 capsule by mouth one time a week. No current facility-administered medications on file prior to visit. Social History Social History Tobacco Use Smoking status: Former Years: 25 Types: Cigarettes Quit date: 2012 Years since quittin.7 Smokeless tobacco: Never Vaping Use Vaping Use: Never used Substance Use Topics Alcohol use: No Drug use: No Review of Symptoms REVIEW OF SYSTEMS SEE HPI EXAM: BP 148/90 Pulse 78 Resp 18 Wt 97.5 kg (215 lb) LMP 03/12/2010 BMI 35.82 kg/m? General Appeara (more content not included)... [facility] 03-21-2023 Note HNO ID: [id number] Author: Oly Man APRN.GRISTMILLER Service: ? Author Type: Nurse Practitioner Type: Progress Notes Filed: 03/21/2023 2:57 PM Note Text: CC: Patient presents with: Cough: Congestion, body aches, headache, x 3-4 days HPI: Isabel Sahni is a 67 year old female who presents to the office with complaint of head congestion for a few days. Symptoms are staying the same. Associated symptoms includes headache and body aches. Denies fever, nausea, vomiting , and diarrhea. Treatments tried include nothing so far. with no relief of symptoms. Sick contacts: unknown. History of asthma, frequent episodes of bronchitis, chronic bronchitis, bronchiectasis or COPD: No Smoker: No Seasonal/environmental allergies: No The ROS is otherwise negative. The patient's pmh, medications, allergies, and past visits are reviewed. PHYSICAL EXAM: BP 157/87 Pulse 70 Temp 36.1 ?C (97 ?F) Resp 18 Wt 98.8 kg (217 lb 12.8 oz) LMP 03/12/2010 SpO2 96% BMI 36.29 kg/m? General appearance: alert, cooperative, pleasant, in no acute distress Head: Normocephalic Eyes: EOM's intact, conjunctiva pink and moist, no icterus, sclera white, non-injected Ears: Right ear: External ear/canal- Normal, TM - clear with good landmarks. Left ear: External ear/canal- Normal, TM - clear with good landmarks Oropharynx:moist without lesions, No erythema, exudates or tonsillar hypertrophy. Heart: Negative. RRR without obvious murmur, gallop, or rubs. No ectopy. Lungs: clear to auscultation, without rales or wheeze, good air exchange PAST MEDICAL HISTORY Diagnosis Date Arthritis Carotid stenosis, bilateral 12/30/2016 US 02/2021 20-40% b/l Elevated alkaline phosphatase level 12/05/[address] Corona Elevated fasting glucose 10/02/2021 Elevated vitamin B12 level 10/02/2021 Endometrial hyperplasia without atypia 12/18/2020 December 18, 2020 Elects for repeat EMB in 6 months. Blanca Harley MD Essential hypertension 03/09/2013 Former smoker 05/11/2013 Gallstones 03/03/2014 Liver fibrosis 01/16/2022 Seeing Gastro- dr. corona LPRD (laryngopharyngeal reflux disease) 05/11/[address] Corona Mixed hyperlipidemia 03/22/2013 Obesity, Class II, BMI 35-39.9 08/31/2015 Pancreatic cyst 11/09/2021 MRI 10/2021. Suspect IPMN. Consult to gastro placed. Tubular adenoma polyp of rectum 07/17/[address] Corona Vitamin D deficiency 10/01/2021 Well adult exam 07/17/2020 Last done: 10/01/2021 PAST SURGICAL HISTORY Procedure Laterality Date ABDOMINAL SURGERY HX COLONOSCOPY 03/12/2022 repeat in 1 year d/t large adenomatous polyps removed piecemeal COLONOSCOPY FLX DX W/COLLJ SPEC WHEN PFRMD 10/28/2013 Colonoscopy COLONOSCOPY FLX DX W/COLLJ SPEC WHEN PFRMD 01/27/2017 Colonoscopy ENDOMETRIAL BX W/WO ENDOCERVIX BX W/O DILAT SPX 11/16/2007 Irregular menses/Menorrhagia ENDOMETRIAL BX W/WO ENDOCERVIX BX W/O DILAT SPX 03/13/2010 ERCP 2014 with stent ESOPHAGOGASTRODUODENOSCOPY TRANSORAL DIAGNOSTIC 05/05/2014 EGD ESOPHAGOGASTRODUODENOSCOPY TRANSORAL DIAGNOSTIC 09/14/2015 EGD HYSTEROSCOPY BX ENDOMETRIUMAND/POLYPC W/WO DANDC N/A 11/30/2020 resection of endometrial polyps LAPAROSCOPY SURG CHOLECYSTECTOMY 03/03/2014 PAST SURGICAL HISTORY OF 03/17/2007 Left knee surgery TONSILLECTOMY HX ALLERGIES Asa [Salicylates], Phenergan [Promethazine], Codeine, Hydrocodone, Ibuprofen, Lisinopril, and Oxycodone MEDICATIONS atorvastatin (LIPITOR) 40 mg tablet Take 1 tablet by mouth daily at bedtime. For cholesterol. hydroCHLOROthiazide 25 mg tablet Take 1 tablet by mouth once daily. cyclobenzaprine (FLEXERIL) 10 mg tablet Take 1 tablet by mouth three times daily as needed for muscle spasm. cyanocobalamin (VITAMIN B-12) 1,000 mcg tab Take 1 tablet by mouth once daily. pantoprazole DR (PROTONIX) 40 mg tablet Take 1 tablet by mouth twice daily. Take on empty stomach, 1/2 hr before meal. losartan (COZAAR) 100 mg tablet Take 1 tablet by mouth once daily. diclofenac (VOLTAREN) 1 % topical gel Apply 4 g to affected area four times daily. Vitamin E, dl, acetate, (VITAMIN E) 400 unit capsule Take 1 capsule by mouth twice daily. Per Gastro: . Friend ursodiol (ACTIGALL) 300 mg capsule Take 1 capsule by mouth twice daily. Per Gastro: Dr. Friend ergocalciferol 50,000 unit capsule (VITAMIN D2, DRISDOL) Take 1 capsule by mouth one time a week. loratadine (CLARITIN) 10 mg tablet Take 1 tablet by mouth once daily. benzonatate (TESSALON PERLES) 100 mg capsule Take 1 capsule by mouth three times daily as needed for up to 7 days. FAMILY HISTORY Problem Relation Age of Onset Diabetes Mother Alcohol/Drug Daughter Diabetes Brother Diabetes Brother Social History Tobacco Use Smoking status: Former Years: 25 Types: Cigarettes Quit date: 2012 Years since quittin.6 Smokeless tobacco: Never Vaping Use Vaping Use: Never used Substance Use Topi (more content not included)... [facility] 03-21-2023 History of Presen t illness Narrative CC: Patient presents with: Cough: Congestion, body aches, headache, x 3-4 days HPI: Isabel Sahni is a 67 year old female who presents to the office with complaint of head congestion for a few days. Symptoms are staying the same. Associated symptoms includes headache and body aches. Denies fever, nausea, vomiting , and diarrhea. Treatments tried include nothing so far. with no relief of symptoms. Sick contacts: unknown. History of asthma, frequent episodes of bronchitis, chronic bronchitis, bronchiectasis or COPD: No Smoker: No Seasonal/environmental allergies: No The ROS is otherwise negative. The patient's pmh, medications, allergies, and past visits are reviewed. PHYSICAL EXAM: BP 157/87 Pulse 70 Temp 36.1 C (97 F) Resp 18 Wt 98.8 kg (217 lb 12.8 oz) LMP 03/12/2010 SpO2 96% BMI 36.29 kg/m General appearance: alert, cooperative, pleasant, in no acute distress Head: Normocephalic Eyes: EOM's intact, conjunctiva pink and moist, no icterus, sclera white, non-injected Ears: Right ear: External ear/canal- Normal, TM - clear with good landmarks. Left ear: External ear/canal- Normal, TM - clear with good landmarks Oropharynx:moist without lesions, No erythema, exudates or tonsillar hypertrophy. Heart: Negative. RRR without obvious murmur, gallop, or rubs. No ectopy. Lungs: clear to auscultation, without rales or wheeze, good air exchange PAST MEDICAL HISTORY Diagnosis Date Arthritis Carotid stenosis, bilateral 12/30/2016 US 02/2021 20-40% b/l Elevated alkaline phosphatase level 12/05/[address] Corona Elevated fasting glucose 10/02/2021 Elevated vitamin B12 level 10/02/2021 Endometrial hyperplasia without atypia 12/18/2020 December 18, 2020 Elects for repeat EMB in 6 months. Blanca Harley MD Essential hypertension 03/09/2013 Former smoker 05/11/2013 Gallstones 03/03/2014 Liver fibrosis 01/16/2022 Seeing Gastro- dr. corona LPRD (laryngopharyngeal reflux disease) 05/11/[address] Corona Mixed hyperlipidemia 03/22/2013 Obesity, Class II, BMI 35-39.9 08/31/2015 Pancreatic cyst 11/09/2021 MRI 10/2021. Suspect IPMN. Consult to gastro placed. Tubular adenoma polyp of rectum 07/17/[address] Corona Vitamin D deficiency 10/01/2021 Well adult exam 07/17/2020 Last done: 10/01/2021 PAST SURGICAL HISTORY Procedure Laterality Date ABDOMINAL SURGERY HX COLONOSCOPY 03/12/2022 repeat in 1 year d/t large adenomatous polyps removed piecemeal COLONOSCOPY FLX DX W/COLLJ SPEC WHEN PFRMD 10/28/2013 Colonoscopy COLONOSCOPY FLX DX W/COLLJ SPEC WHEN PFRMD 01/27/2017 Colonoscopy ENDOMETRIAL BX W/WO ENDOCERVIX BX W/O DILAT SPX 11/16/2007 Irregular menses/Menorrhagia ENDOMETRIAL BX W/WO ENDOCERVIX BX W/O DILAT SPX 03/13/2010 ERCP 2014 with stent ESOPHAGOGASTRODUODENOSCOPY TRANSORAL DIAGNOSTIC 05/05/2014 EGD ESOPHAGOGASTRODUODENOSCOPY TRANSORAL DIAGNOSTIC 09/14/2015 EGD HYSTEROSCOPY BX ENDOMETRIUM&/POLYPC W/WO D&C N/A 11/30/2020 resection of endometrial polyps LAPAROSCOPY SURG CHOLECYSTECTOMY 03/03/2014 PAST SURGICAL HISTORY OF 03/17/2007 Left knee surgery TONSILLECTOMY HX ALLERGIES Asa [Salicylates], Phenergan [Promethazine], Codeine, Hydrocodone, Ibuprofen, Lisinopril, and Oxycodone MEDICATIONS atorvastatin (LIPITOR) 40 mg tablet Take 1 tablet by mouth daily at bedtime. For cholesterol. hydroCHLOROthiazide 25 mg tablet Take 1 tablet by mouth once daily. cyclobenzaprine (FLEXERIL) 10 mg tablet Take 1 tablet by mouth three times daily as needed for muscle spasm. cyanocobalamin (VITAMIN B-12) 1,000 mcg tab Take 1 tablet by mouth once daily. pantoprazole DR (PROTONIX) 40 mg tablet Take 1 tablet by mouth twice daily. Take on empty stomach, 1/2 hr before meal. losartan (COZAAR) 100 mg tablet Take 1 tablet by mouth once daily. diclofenac (VOLTAREN) 1 % topical gel Apply 4 g to affected area four times daily. Vitamin E, dl, acetate, (VITAMIN E) 400 unit capsule Take 1 capsule by mouth twice daily. Per Gastro: Dr. Friend ursodiol (ACTIGALL) 300 mg capsule Take 1 capsule by mouth twice daily. Per Gastro: Dr. Friend ergocalciferol 50,000 unit capsule (VITAMIN D2, DRISDOL) Take 1 capsule by mouth one time a week. loratadine (CLARITIN) 10 mg tablet Take 1 tablet by mouth once daily. benzonatate (TESSALON PERLES) 100 mg capsule Take 1 capsule by mouth three times daily as needed for up to 7 days. FAMILY HISTORY Problem Relation Age of Onset Diabetes Mother Alcohol/Drug Daughter Diabetes Brother Diabetes Brother Social History Tobacco Use Smoking status: Former Years: 25 Types: Cigarettes Quit date: 2012 Years since quittin.6 Smokeless tobacco: Never Vaping Use Vaping Use: Never used Substance Use Topics Alcohol use: No Drug use: No ASSESSMENT/PLAN: 1. Acute cough - ICD9: 786.2, ICD10: R05.1 - LORATADINE 10 MG TABLET - BENZONATATE 100 MG CAPSULE Educated about proper use of medication and supportive therapies. Patient does not want any viral testing at this time. Patient does not want a work note. Patient will follow-up if signs and symptoms seem to be getting worse not better. Oly Man APRN.GRISTMILLER Prescription instructions reviewed with patient as applicable. Potential red flag symptoms discussed with the patient. Reviewed appropriate action plan to take if red flag symptoms occur. Patient agreeable to treatment plan. Oly Man APRN.GRISTMILLER documented in this encounter [facility] 12-11-2022 Miscellaneous Notes Lft message of same on pt's identified vm. Altaf Bean LPN ----- Message from Prudencio Coelho PA-C sent at 12/11/2022 8:10 AM EDT ----- Normal mammogram. Repeat in 1 year. documented in this encounter [facility] 12-10-2022 Miscellaneous Notes December 11, 2022 PID: [id number] Isabel Sahni [address] [place] [id number] Dear Ms. Sahni, We are pleased to inform you that the results of your recent breast imaging exam on 12/10/2022 are normal. Early detection of cancer is very important. We also understand recommendations regarding breast cancer screening are controversial. Please discuss with your primary care provider which strategy is best for you and whether a mammogram is right for you. Your imaging studies and report will be kept on file at [facility] as part of your permanent medical record and are available for your continuing care. Thank you for allowing us to help in meeting your health care needs. Sincerely, Dr. Goldstein Interpreting Radiologist [facility] (Normal over 40) documented in this encounter [facility] 12-10-2022 Note HNO ID: [id number] Author: RT Mirta(Olga) Service: ? Author Type: Technologist Type: Progress Notes Filed: 12/10/2022 12:54 PM Note Text: Radiology Service Progress Note PATIENT NAME: Isabel Sahni DATE OF SERVICE: December 10, 2022 TIME: 12:54 PM PATIENT IDENTITY VERIFICATION COMPLETED USING TWO (2) IDENTIFIERS: Name and Date of confirmed by patient verbally. FALL SCREENING: Has the patient had 2 falls in the last year or 1 fall with injury or currently using an Ambulatory Assistive Device (Walker, Cane, Wheelchair, Crutches, etc.)? No PATIENT GENDER DATA: Female. status: : No status: NO. PATIENT RELEVANT IMPLANT DATA REVIEWED: Not Applicable RADIOLOGY DEPARTMENT: Mammography PERIPHERAL IV DATA: Not applicable SIGNED BY: RT Mirta(R) December 10, 2022 12:54 PM [facility] 12-10-2022 History of Presen t illness Narrative Radiology Service Progress Note PATIENT NAME: Isabel Sahni DATE OF SERVICE: December 10, 2022 TIME: 12:54 PM PATIENT IDENTITY VERIFICATION COMPLETED USING TWO (2) IDENTIFIERS: Name and Date of confirmed by patient verbally. FALL SCREENING: Has the patient had 2 falls in the last year or 1 fall with injury or currently using an Ambulatory Assistive Device (Walker, Cane, Wheelchair, Crutches, etc.)? No PATIENT GENDER DATA: Female. status: : No status: NO. PATIENT RELEVANT IMPLANT DATA REVIEWED: Not Applicable RADIOLOGY DEPARTMENT: Mammography PERIPHERAL IV DATA: Not applicable SIGNED BY: RT Mirta(Olga) December 10, 2022 12:54 PM documented in this encounter [facility] 11-05-2022 Note HNO ID: [id number] Author: DEVAUGHN Mcgowan Service: ? Author Type: Physician Form Grader Type: Progress Notes Filed: 11/05/2022 1:52 PM Note Text: This note was created using NoteWriter. Subjective Isabel Sahni is a 67 year old female. HPI 67-year-old female presents for sinus congestion, sinus pressure, cough x3 weeks. Patient states she has had nasal congestion for the past 2 to 3 weeks. She has had a cough as well. She states she has a lot of headaches and sinus pressure. She has been taking [id number] medications without much improvement. No fevers recently, but does state that at the start of her symptoms she had some fevers and chills. She denies any vomiting or diarrhea. is sick with similar symptoms. No other complaints. PAST MEDICAL HISTORY Diagnosis Date Arthritis Carotid stenosis, bilateral 12/30/2016 US 02/2021 20-40% b/l Elevated alkaline phosphatase level 12/05/[address] Corona Elevated fasting glucose 10/02/2021 Elevated vitamin B12 level 10/02/2021 Endometrial hyperplasia without atypia 12/18/2020 December 18, 2020 Elects for repeat EMB in 6 months. Blanca Harley MD Essential hypertension 03/09/2013 Former smoker 05/11/2013 Gallstones 03/03/2014 Liver fibrosis 01/16/2022 Seeing Gastro- dr. corona LPRD (laryngopharyngeal reflux disease) 05/11/[address] Corona Mixed hyperlipidemia 03/22/2013 Obesity, Class II, BMI 35-39.9 08/31/2015 Pancreatic cyst 11/09/2021 MRI 10/2021. Suspect IPMN. Consult to gastro placed. Tubular adenoma polyp of rectum 07/17/[address] Corona Vitamin D deficiency 10/01/2021 Well adult exam 07/17/2020 Last done: 10/01/2021 PAST SURGICAL HISTORY Procedure Laterality Date ABDOMINAL SURGERY HX COLONOSCOPY 03/12/2022 repeat in 1 year d/t large adenomatous polyps removed piecemeal COLONOSCOPY FLX DX W/COLLJ SPEC WHEN PFRMD 10/28/2013 Colonoscopy COLONOSCOPY FLX DX W/COLLJ SPEC WHEN PFRMD 01/27/2017 Colonoscopy ENDOMETRIAL BX W/WO ENDOCERVIX BX W/O DILAT SPX 11/16/2007 Irregular menses/Menorrhagia ENDOMETRIAL BX W/WO ENDOCERVIX BX W/O DILAT SPX 03/13/2010 ERCP 2014 with stent ESOPHAGOGASTRODUODENOSCOPY TRANSORAL DIAGNOSTIC 05/05/2014 EGD ESOPHAGOGASTRODUODENOSCOPY TRANSORAL DIAGNOSTIC 09/14/2015 EGD HYSTEROSCOPY BX ENDOMETRIUMAND/POLYPC W/WO DANDC N/A 11/30/2020 resection of endometrial polyps LAPAROSCOPY SURG CHOLECYSTECTOMY 03/03/2014 PAST SURGICAL HISTORY OF 03/17/2007 Left knee surgery TONSILLECTOMY HX ALLERGIES Asa [Salicylates], Phenergan [Promethazine], Codeine, Hydrocodone, Ibuprofen, Lisinopril, and Oxycodone MEDICATIONS atorvastatin (LIPITOR) 40 mg tablet Take 1 tablet by mouth daily at bedtime. For cholesterol. hydroCHLOROthiazide 25 mg tablet Take 1 tablet by mouth once daily. loratadine (CLARITIN) 10 mg tablet Take 1 tablet by mouth once daily. cyclobenzaprine (FLEXERIL) 10 mg tablet Take 1 tablet by mouth three times daily as needed for muscle spasm. cyanocobalamin (VITAMIN B-12) 1,000 mcg tab Take 1 tablet by mouth once daily. pantoprazole DR (PROTONIX) 40 mg tablet Take 1 tablet by mouth twice daily. Take on empty stomach, 1/2 hr before meal. losartan (COZAAR) 100 mg tablet Take 1 tablet by mouth once daily. diclofenac (VOLTAREN) 1 % topical gel Apply 4 g to affected area four times daily. Vitamin E, dl, acetate, (VITAMIN E) 400 unit capsule Take 1 capsule by mouth twice daily. Per Gastro: DrClayton Friend ursodiol (ACTIGALL) 300 mg capsule Take 1 capsule by mouth twice daily. Per Gastro: Dr. Friend ergocalciferol 50,000 unit capsule (VITAMIN D2, DRISDOL) Take 1 capsule by mouth one time a week. amoxicillin-clavulanic acid (AUGMENTIN) 875-125 mg per tablet Take 1 tablet by mouth twice daily for 5 days. FAMILY HISTORY Problem Relation Age of Onset Diabetes Mother Alcohol/Drug Daughter Diabetes Brother Diabetes Brother Social History Tobacco Use Smoking status: Former Years: 25.00 Types: Cigarettes Quit date: 2012 Years since quittin.3 Smokeless tobacco: Never Vaping Use Vaping Use: Never used Substance Use Topics Alcohol use: No Drug use: No Review of Systems Constitutional: Negative for chills and fever. HENT: Positive for congestion, sinus pressure and sinus pain. Negative for ear pain and sore throat. Respiratory: Positive for cough. Negative for shortness of breath. Cardiovascular: Negative for chest pain. Gastrointestinal: Negative for diarrhea and vomiting. Neurological: Positive for headaches. Objective BP 132/70 Pulse 78 Temp 36.6 ?C (97.8 ?F) Resp 16 Wt 100.2 kg (221 lb) LMP 03/12/2010 SpO2 98% BMI 36.82 kg/m? Physical Exam Vitals and nursing note reviewed. Constitutional: General: She is not in acute distress. Appearance: Normal appearance. She is not toxic-appearing. HENT: Right Ear: Tympanic membrane and ear canal normal. Left Ear: Tympa (more content not included)... [facility] 11-05-2022 History of Presen t illness Narrative This note was created using Simpleeter. Subjective Isabel Sahni is a 67 year old female. HPI 67-year-old female presents for sinus congestion, sinus pressure, cough x3 weeks. Patient states she has had nasal congestion for the past 2 to 3 weeks. She has had a cough as well. She states she has a lot of headaches and sinus pressure. She has been taking [id number]-[id number] medications without much improvement. No fevers recently, but does state that at the start of her symptoms she had some fevers and chills. She denies any vomiting or diarrhea. is sick with similar symptoms. No other complaints. PAST MEDICAL HISTORY Diagnosis Date Arthritis Carotid stenosis, bilateral 12/30/2016 US 02/2021 20-40% b/l Elevated alkaline phosphatase level 12/05/[address] Corona Elevated fasting glucose 10/02/2021 Elevated vitamin B12 level 10/02/2021 Endometrial hyperplasia without atypia 12/18/2020 December 18, 2020 Elects for repeat EMB in 6 months. Blanca Harley MD Essential hypertension 03/09/2013 Former smoker 05/11/2013 Gallstones 03/03/2014 Liver fibrosis 01/16/2022 Seeing Gastro- dr. corona LPRD (laryngopharyngeal reflux disease) 05/11/[address] Corona Mixed hyperlipidemia 03/22/2013 Obesity, Class II, BMI 35-39.9 08/31/2015 Pancreatic cyst 11/09/2021 MRI 10/2021. Suspect IPMN. Consult to gastro placed. Tubular adenoma polyp of rectum 07/17/[address] Corona Vitamin D deficiency 10/01/2021 Well adult exam 07/17/2020 Last done: 10/01/2021 PAST SURGICAL HISTORY Procedure Laterality Date ABDOMINAL SURGERY HX COLONOSCOPY 03/12/2022 repeat in 1 year d/t large adenomatous polyps removed piecemeal COLONOSCOPY FLX DX W/COLLJ SPEC WHEN PFRMD 10/28/2013 Colonoscopy COLONOSCOPY FLX DX W/COLLJ SPEC WHEN PFRMD 01/27/2017 Colonoscopy ENDOMETRIAL BX W/WO ENDOCERVIX BX W/O DILAT SPX 11/16/2007 Irregular menses/Menorrhagia ENDOMETRIAL BX W/WO ENDOCERVIX BX W/O DILAT SPX 03/13/2010 ERCP 2014 with stent ESOPHAGOGASTRODUODENOSCOPY TRANSORAL DIAGNOSTIC 05/05/2014 EGD ESOPHAGOGASTRODUODENOSCOPY TRANSORAL DIAGNOSTIC 09/14/2015 EGD HYSTEROSCOPY BX ENDOMETRIUM&/POLYPC W/WO D&C N/A 11/30/2020 resection of endometrial polyps LAPAROSCOPY SURG CHOLECYSTECTOMY 03/03/2014 PAST SURGICAL HISTORY OF 03/17/2007 Left knee surgery TONSILLECTOMY HX ALLERGIES Asa [Salicylates], Phenergan [Promethazine], Codeine, Hydrocodone, Ibuprofen, Lisinopril, and Oxycodone MEDICATIONS atorvastatin (LIPITOR) 40 mg tablet Take 1 tablet by mouth daily at bedtime. For cholesterol. hydroCHLOROthiazide 25 mg tablet Take 1 tablet by mouth once daily. loratadine (CLARITIN) 10 mg tablet Take 1 tablet by mouth once daily. cyclobenzaprine (FLEXERIL) 10 mg tablet Take 1 tablet by mouth three times daily as needed for muscle spasm. cyanocobalamin (VITAMIN B-12) 1,000 mcg tab Take 1 tablet by mouth once daily. pantoprazole DR (PROTONIX) 40 mg tablet Take 1 tablet by mouth twice daily. Take on empty stomach, 1/2 hr before meal. losartan (COZAAR) 100 mg tablet Take 1 tablet by mouth once daily. diclofenac (VOLTAREN) 1 % topical gel Apply 4 g to affected area four times daily. Vitamin E, dl, acetate, (VITAMIN E) 400 unit capsule Take 1 capsule by mouth twice daily. Per Gastro: Dr. Corona ursodiol (ACTIGALL) 300 mg capsule Take 1 capsule by mouth twice daily. Per Gastro: Dr. Corona ergocalciferol 50,000 unit capsule (VITAMIN D2, DRISDOL) Take 1 capsule by mouth one time a week. amoxicillin-clavulanic acid (AUGMENTIN) 875-125 mg per tablet Take 1 tablet by mouth twice daily for 5 days. FAMILY HISTORY Problem Relation Age of Onset Diabetes Mother Alcohol/Drug Daughter Diabetes Brother Diabetes Brother Social History Tobacco Use Smoking status: Former Years: 25.00 Types: Cigarettes Quit date: 2012 Years since quittin.3 Smokeless tobacco: Never Vaping Use Vaping Use: Never used Substance Use Topics Alcohol use: No Drug use: No Review of Systems Constitutional: Negative for chills and fever. HENT: Positive for congestion, sinus pressure and sinus pain. Negative for ear pain and sore throat. Respiratory: Positive for cough. Negative for shortness of breath. Cardiovascular: Negative for chest pain. Gastrointestinal: Negative for diarrhea and vomiting. Neurological: Positive for headaches. Objective BP 132/70 Pulse 78 Temp 36.6 C (97.8 F) Resp 16 Wt 100.2 kg (221 lb) LMP 03/12/2010 SpO2 98% BMI 36.82 kg/m Physical Exam Vitals and nursing note reviewed. Constitutional: General: She is not in acute distress. Appearance: Normal appearance. She is not toxic-appearing. HENT: Right Ear: Tympanic membrane and ear canal normal. Left Ear: Tympanic membrane and ear canal normal. Nose: Mucosal edema present. Right Sinus: Maxillary sinus tenderness and frontal sinus tenderness present. Left Sinus: Maxillary sinus tenderness and frontal sinus tenderness present. Mouth/Throat: Mouth: Mucous membranes are moist. Pharynx: No oropharyngeal exudate or posterior oropharyngeal erythema. Eyes: Conjunctiva/sclera: Conjunctivae normal. Cardiovascular: Rate and Rhythm: Normal rate and regular rhythm. Pulmonary: Effort: Pulmonary effort is normal. Breath sounds: Normal breath sounds. Neurological: Mental Status: She is alert. Assessment and Plan ASSESSMENT/PLAN: 1. Bacterial sinusitis - ICD9: 473.9, 041.9, ICD10: J32.9, B96.89 - Will begin treatment with Augmentin 875 mg PO BID for 5 days -Patient did have recent labs, normal kidney function. -Declines COVID/flu swab, symptoms x3 weeks - The patient should also be given OTC decongestants prn for the first 5-7 days of treatment. - Supportive care with plenty of fluids, rest, and analgesia prn. Diagnosis and treatment plan were discussed and questions were answered to the patient's satisfaction. Pt acknowledged understanding of concepts and follow up plan. Specific signs and symptoms that would indicate the need for higher level of care were discussed in detail warranting prompt ER evaluation. DEVAUGHN Mcgowan documented in this encounter [facility] 10-14-2022 Miscellaneous Notes The following approved medication requests have been transmitted electronically. Requested Prescriptions Signed Prescriptions Disp Refills atorvastatin (LIPITOR) 40 mg tablet 90 tablet 1 Sig: Take 1 tablet by mouth daily at bedtime. For cholesterol. Authorizing Provider: PRUDENCIO COELHO PA-C Reviewed results and instructions with pt. She would like to increase the lipitor to 40 mg. Please send to [facility] [place]. Altaf Bean LPN Called and left a detailed voicemail notifying patient of providers message. Hospital phone number was left for the Pt to call back. Florencia Johnston RN Let patient know that overall labs are okay. Her cholesterol has increased some however. We could increase lipitor to 40mg or she can work on her diet and in 6 months we can recheck and decide from there. Which does she prefer? Everything else looks good. Thanks. Prudencio Coelho PA-C documented in this encounter [facility] 10-08-2022 Note HNO ID: [id number] Author: Prudencio Coelho PA-C Service: ? Author Type: Physician Form Grader Type: Progress Notes Filed: 10/08/2022 11:27 AM Note Text: Chief Complaint Patient presents with: Yearly Exam HPI Isabel Sahni is a 67 year old female who presents here today for physical. Patient with hx of HTN, hyperlipidemia, liver fibrosis, elevated glucose, carotid stenosis, obesity, vit d def, pancreatic cyst, and those as below. Overall patient is doing well. Has had vaginal itching for 2 weeks. Has use OTC cream, but not sure which one she got. Low back pain for a few days. No injury. Sore throat with runny nose x 2 days. No fever. Lots of sneezing. No fatigue. Doesn't feel sick. Past medical history, appointments, medications, allergies reviewed. Previous Medical History PAST MEDICAL HISTORY Diagnosis Date Arthritis Carotid stenosis, bilateral 12/30/2016 US 02/2021 20-40% b/l Elevated alkaline phosphatase level 12/05/[address] Corona Elevated fasting glucose 10/02/2021 Elevated vitamin B12 level 10/02/2021 Endometrial hyperplasia without atypia 12/18/2020 December 18, 2020 Elects for repeat EMB in 6 months. Blanca Harley MD Essential hypertension 03/09/2013 Former smoker 05/11/2013 Gallstones 03/03/2014 Liver fibrosis 01/16/2022 Seeing Gastro- dr. corona LPRD (laryngopharyngeal reflux disease) 05/11/[address] Corona Mixed hyperlipidemia 03/22/2013 Obesity, Class II, BMI 35-39.9 08/31/2015 Pancreatic cyst 11/09/2021 MRI 10/2021. Suspect IPMN. Consult to gastro placed. Tubular adenoma polyp of rectum 07/17/[address] Corona Vitamin D deficiency 10/01/2021 Well adult exam 07/17/2020 Last done: 10/01/2021 Previous Surgical History PAST SURGICAL HISTORY Procedure Laterality Date ABDOMINAL SURGERY HX COLONOSCOPY 03/12/2022 repeat in 1 year d/t large adenomatous polyps removed piecemeal COLONOSCOPY FLX DX W/COLLJ SPEC WHEN PFRMD 10/28/2013 Colonoscopy COLONOSCOPY FLX DX W/COLLJ SPEC WHEN PFRMD 01/27/2017 Colonoscopy ENDOMETRIAL BX W/WO ENDOCERVIX BX W/O DILAT SPX 11/16/2007 Irregular menses/Menorrhagia ENDOMETRIAL BX W/WO ENDOCERVIX BX W/O DILAT SPX 03/13/2010 ERCP 2014 with stent ESOPHAGOGASTRODUODENOSCOPY TRANSORAL DIAGNOSTIC 05/05/2014 EGD ESOPHAGOGASTRODUODENOSCOPY TRANSORAL DIAGNOSTIC 09/14/2015 EGD HYSTEROSCOPY BX ENDOMETRIUMAND/POLYPC W/WO DANDC N/A 11/30/2020 resection of endometrial polyps LAPAROSCOPY SURG CHOLECYSTECTOMY 03/03/2014 PAST SURGICAL HISTORY OF 03/17/2007 Left knee surgery TONSILLECTOMY HX Family History FAMILY HISTORY Problem Relation Age of Onset Diabetes Mother Alcohol/Drug Daughter Diabetes Brother Diabetes Brother Patient Allergies ALLERGIES Allergen Reactions Asa [Salicylates] Hives Phenergan [Prometha* Itching suppositiries Codeine Intolerance Hydrocodone Cough, Vomiting, Shortness of Breath Ibuprofen Intolerance, GI Upset Lisinopril Cough Oxycodone GI Upset, Anaphylaxis, Other: See Comments Body aches. Hot flashes Current Medications Current Outpatient Medications on File Prior to Visit Medication Sig cyanocobalamin (VITAMIN B-12) 1,000 mcg tab Take 1 tablet by mouth once daily. pantoprazole DR (PROTONIX) 40 mg tablet Take 1 tablet by mouth twice daily. Take on empty stomach, 1/2 hr before meal. atorvastatin (LIPITOR) 20 mg tablet Take 1 tablet by mouth daily at bedtime. For cholesterol. losartan (COZAAR) 100 mg tablet Take 1 tablet by mouth once daily. diclofenac (VOLTAREN) 1 % topical gel Apply 4 g to affected area four times daily. Vitamin E, dl, acetate, (VITAMIN E) 400 unit capsule Take 1 capsule by mouth twice daily. Per Gastro: Dr. Corona ursodiol (ACTIGALL) 300 mg capsule Take 1 capsule by mouth twice daily. Per Gastro: Dr. Corona hydroCHLOROthiazide (HYDRODIURIL, ESIDRIX) 25 mg tablet Take 1 tablet by mouth once daily. ergocalciferol 50,000 unit capsule (VITAMIN D2, DRISDOL) Take 1 capsule by mouth one time a week. No current facility-administered medications on file prior to visit. Social History Social History Tobacco Use Smoking status: Former Years: 25.00 Types: Cigarettes Start date: 03/18/2020 Smokeless tobacco: Never Vaping Use Vaping Use: Never used Substance Use Topics Alcohol use: No Drug use: No Review of Symptoms REVIEW OF SYSTEMS GENERAL: No weight loss, malaise or fevers HEENT: No changes in hearing or vision, no nose bleeds or other nasal problems NECK: Negative for lumps, goiter, pain and significant neck swelling RESPIRATORY: Negative for cough, hemoptysis, wheezing, COPD, dyspnea or shortness of breath CARDIOVASCULAR: Negative for chest pain, leg swelling, hypertension, CHF or palpitations GI: Negative for abdominal discomfort, blood in stools or black stools, change in bowel habit, heart burn, nausea, vomiting : No history of dysuria, frequency or incont (more content not included)... [facility] 10-08-2022 History of Presen t illness Narrative Chief Complaint Patient presents with: Yearly Exam HPI Isabel Sahni is a 67 year old female who presents here today for physical. Patient with hx of HTN, hyperlipidemia, liver fibrosis, elevated glucose, carotid stenosis, obesity, vit d def, pancreatic cyst, and those as below. Overall patient is doing well. Has had vaginal itching for 2 weeks. Has use OTC cream, but not sure which one she got. Low back pain for a few days. No injury. Sore throat with runny nose x 2 days. No fever. Lots of sneezing. No fatigue. Doesn't feel sick. Past medical history, appointments, medications, allergies reviewed. Previous Medical History PAST MEDICAL HISTORY Diagnosis Date Arthritis Carotid stenosis, bilateral 12/30/2016 US 02/2021 20-40% b/l Elevated alkaline phosphatase level 12/05/[address] Corona Elevated fasting glucose 10/02/2021 Elevated vitamin B12 level 10/02/2021 Endometrial hyperplasia without atypia 12/18/2020 December 18, 2020 Elects for repeat EMB in 6 months. Blanca Harley MD Essential hypertension 03/09/2013 Former smoker 05/11/2013 Gallstones 03/03/2014 Liver fibrosis 01/16/2022 Seeing Gastro- dr. corona LPRD (laryngopharyngeal reflux disease) 05/11/[address] Corona Mixed hyperlipidemia 03/22/2013 Obesity, Class II, BMI 35-39.9 08/31/2015 Pancreatic cyst 11/09/2021 MRI 10/2021. Suspect IPMN. Consult to gastro placed. Tubular adenoma polyp of rectum 07/17/[address] Corona Vitamin D deficiency 10/01/2021 Well adult exam 07/17/2020 Last done: 10/01/2021 Previous Surgical History PAST SURGICAL HISTORY Procedure Laterality Date ABDOMINAL SURGERY HX COLONOSCOPY 03/12/2022 repeat in 1 year d/t large adenomatous polyps removed piecemeal COLONOSCOPY FLX DX W/COLLJ SPEC WHEN PFRMD 10/28/2013 Colonoscopy COLONOSCOPY FLX DX W/COLLJ SPEC WHEN PFRMD 01/27/2017 Colonoscopy ENDOMETRIAL BX W/WO ENDOCERVIX BX W/O DILAT SPX 11/16/2007 Irregular menses/Menorrhagia ENDOMETRIAL BX W/WO ENDOCERVIX BX W/O DILAT SPX 03/13/2010 ERCP 2014 with stent ESOPHAGOGASTRODUODENOSCOPY TRANSORAL DIAGNOSTIC 05/05/2014 EGD ESOPHAGOGASTRODUODENOSCOPY TRANSORAL DIAGNOSTIC 09/14/2015 EGD HYSTEROSCOPY BX ENDOMETRIUM&/POLYPC W/WO D&C N/A 11/30/2020 resection of endometrial polyps LAPAROSCOPY SURG CHOLECYSTECTOMY 03/03/2014 PAST SURGICAL HISTORY OF 03/17/2007 Left knee surgery TONSILLECTOMY HX Family History FAMILY HISTORY Problem Relation Age of Onset Diabetes Mother Alcohol/Drug Daughter Diabetes Brother Diabetes Brother Patient Allergies ALLERGIES Allergen Reactions Asa [Salicylates] Hives Phenergan [Prometha* Itching suppositiries Codeine Intolerance Hydrocodone Cough, Vomiting, Shortness of Breath Ibuprofen Intolerance, GI Upset Lisinopril Cough Oxycodone GI Upset, Anaphylaxis, Other: See Comments Body aches. Hot flashes Current Medications Current Outpatient Medications on File Prior to Visit Medication Sig cyanocobalamin (VITAMIN B-12) 1,000 mcg tab Take 1 tablet by mouth once daily. pantoprazole DR (PROTONIX) 40 mg tablet Take 1 tablet by mouth twice daily. Take on empty stomach, 1/2 hr before meal. atorvastatin (LIPITOR) 20 mg tablet Take 1 tablet by mouth daily at bedtime. For cholesterol. losartan (COZAAR) 100 mg tablet Take 1 tablet by mouth once daily. diclofenac (VOLTAREN) 1 % topical gel Apply 4 g to affected area four times daily. Vitamin E, dl, acetate, (VITAMIN E) 400 unit capsule Take 1 capsule by mouth twice daily. Per Gastro: Dr. Corona ursodiol (ACTIGALL) 300 mg capsule Take 1 capsule by mouth twice daily. Per Gastro: Dr. Corona hydroCHLOROthiazide (HYDRODIURIL, ESIDRIX) 25 mg tablet Take 1 tablet by mouth once daily. ergocalciferol 50,000 unit capsule (VITAMIN D2, DRISDOL) Take 1 capsule by mouth one time a week. No current facility-administered medications on file prior to visit. Social History Social History Tobacco Use Smoking status: Former Years: 25.00 Types: Cigarettes Start date: 03/18/2020 Smokeless tobacco: Never Vaping Use Vaping Use: Never used Substance Use Topics Alcohol use: No Drug use: No Review of Symptoms REVIEW OF SYSTEMS GENERAL: No weight loss, malaise or fevers HEENT: No changes in hearing or vision, no nose bleeds or other nasal problems NECK: Negative for lumps, goiter, pain and significant neck swelling RESPIRATORY: Negative for cough, hemoptysis, wheezing, COPD, dyspnea or shortness of breath CARDIOVASCULAR: Negative for chest pain, leg swelling, hypertension, CHF or palpitations GI: Negative for abdominal discomfort, blood in stools or black stools, change in bowel habit, heart burn, nausea, vomiting : No history of dysuria, frequency or incontinence MUSCULOSKELETAL: see hpi SKIN: Negative for lesions, rash, and itching PSYCH: Negative for sleep disturbance, mood disorder and recent psychosocial stressors HEMATOLOGY/LYMPHOLOGY: Negative for prolonged bleeding, bruising easily or swollen nodes ENDOCRINE: Negative for cold or heat intolerance, polyuria, polydipsia and goiter NEURO: No history of headaches, syncope, paralysis, seizures or tremors EXAM: BP 132/88 (BP Site: Left Arm, BP Position: Sitting, BP Cuff Size: Large Adult) Pulse 60 Temp 36.3 C (97.4 F) Resp 18 Ht 165 cm (5' 4.96 ) Wt 97.5 kg (215 lb) LMP 03/12/2010 BMI 35.82 kg/m General Appearance: Well appearing, alert, in no acute distress, well-hydrated, well nourished.. Skin: Skin color, texture, turgor normal, no suspicious rashes or lesions. Head: Normocephalic, no masses, lesions, tenderness or abnormalities. Eyes: Anicteric sclera. Pupils are equally round and reactive to light. Extraocular movements are intact. . Ears: External ears normal, canals clear, TMs pearly salgado. Nose/Sinuses: Nares normal, septum midline, mucosa normal, no drainage or sinus tenderness. Oropharynx: Lips, mucosa, and tongue normal, teeth and gums normal, oropharynx normal. Neck: Supple, no adenopathy; thyroid symmetric, normal size, no bruits. Lungs: Lungs clear to auscultation. No wheezing, rhonchi, rales.. Heart: RRR without murmur, gallop, or rubs. No ectopy. Abdomen: Normal abdominal exam, Abdomen soft, non-tender. Bowel sounds normal. No masses, organomegaly. Extremities: No deformities, edema, skin discoloration, clubbing or cyanosis. Good capillary refill. . Peripheral Pulses: Normal. Neurologic: Gait normal. Reflexes normal and symmetric. Sensation grossly intact.. Health Maintenance List HEPATITIS C SCREENING Never done HIV SCREENING Never done SHINGRIX VACCINE(1 of 2) Never done DEPRESSION ASSESSMENT due on 07/14/2022 BONE DENSITY Never done ADVANCE DIRECTIVE DISCUSSION Never done PNEUMOCOCCAL: 65+(2 - PPSV23 if available, else PCV20) due on 10/01/2022 MAMMOGRAM due on 10/29/2022 COLORECTAL CANCER SCREENING due on 03/12/2023 ANNUAL PCP TEAM CHRONIC DISEASE VISIT due on 06/03/2023 BP CONTROLLED (<130/80) due on 06/03/2023 DIABETES SCREEN due on 06/25/2025 LIPID SCREEN due on 04/09/2027 DTAP,TDAP,TD(2 - Td or Tdap) due on 10/02/2031 INFLUENZA Completed COVID-19 VACCINE Completed Data reviewed N/a ASSESSMENT/PLAN: 1. Well adult exam - ICD9: V70.0, ICD10: Z00.00 (primary diagnosis) - Counseled on healthy diet and regular exercise - Calcium intake with supplements or by diet of 1000 mg/day for under 50, 9792-0743 mg/day for 50+ - Patient was counseled [id number] by myself (the billing provider) for the following immunizations and vaccine components, including side effects: Pneumococcal and Shingrix. Patient consents for immunization and understands risks and benefits. A VIS sheet on each immunization was given to the patient. 2. Essential hypertension - ICD9: 401.9, ICD10: I10 - fair control - Continue current medication(s) - Recommended regular aerobic exercise. - Recommend home blood pressure monitoring, to bring results in on next visit - Goal of BP <130/80 - COMP METABOLIC PANEL 3. Mixed hyperlipidemia - ICD9: 272.2, ICD10: E78.2 - to be determined upon return of lab results - Encouraged following a low carbohydrate, healthy oil intake diet. - Continue current therapy. - LIPID PANEL, NONFASTING 4. Elevated fasting glucose - ICD9: 790.21, ICD10: R73.01 - COMP METABOLIC PANEL - HGB A1C 5. Low serum vitamin B12 - ICD9: 266.2, ICD10: E53.8 - VITAMIN B12 BLOOD 6. Liver fibrosis - ICD9: 571.5, ICD10: K74.00 Cont with gastro 7. Carotid stenosis, bilateral - ICD9: 433.10, 433.30, ICD10: I65.23 Recent US stable 8. Obesity, Class II, BMI 35-39.9 - ICD9: 278.00, ICD10: E66.9 stable 9. Vitamin D deficiency - ICD9: 268.9, ICD10: E55.9 - VITAMIN D 25 HYDROXY 10. Encounter for screening mammogram for breast cancer - ICD9: V76.12, ICD10: Z12.31 - SRINATH SCREENING 11. Encounter for immunization - ICD9: V03.89, ICD10: Z23 - ZOSTER VACCINE, RECOMBINANT (SHINGRIX) Prudencio Coelho PA-C Follow up 6 months. documented in this encounter [facility] 08-06-2022 Miscellaneous Notes Pharmacy verified in Epic Patient has been identified by name and date of : Yes Patient aware RX will be sent to pharmacy. No need to notify patient. Patient phones for refill(s): Requested Prescriptions Pending Prescriptions Disp Refills cyanocobalamin (VITAMIN B-12) 1,000 mcg tab 90 tablet 3 Sig: Take 1 tablet by mouth once daily. pantoprazole DR (PROTONIX) 40 mg tablet 180 tablet 1 Sig: Take 1 tablet by mouth twice daily. Take on empty stomach, 1/2 hr before meal. atorvastatin (LIPITOR) 20 mg tablet 90 tablet 1 Sig: Take 1 tablet by mouth daily at bedtime. For cholesterol. losartan (COZAAR) 100 mg tablet 90 tablet 1 Sig: Take 1 tablet by mouth once daily. Date of last office visit : 06/03/2022 Date of next office visit : 10/08/2022 Last 2 Encounter Wt Readings: Date: Wt: 06/03/2022 98 kg (216 lb) 05/20/2022 98 kg (216 lb) Not applicable Please advise. Mariya Meza Pss documented in this encounter [facility] 05-20-2022 History of Presen t illness Narrative Patient presents with: Knee Pain: bilateral knee and thigh pain x 1 month HPI: Knee pain: Duration: 1 1/2 months, worse the last 1 1/2 weeks Location: bilateral knees and anterior thighs Character: aching and burning Radiation: No. Aggravating: bending knees, standing too long, and sometimes walking. Not bothered by bending back Relieving: none Pain relievers: none, tried ice Associated: sleep/work disturbance, nearly falling from pain/balance sometimes, left knee meniscus tear 2004, DDD on lumbar xray 2 weeks ago Pertinent negatives: Denies numbness, weakness, incontinence, weight loss/gain, known injury PAST MEDICAL HISTORY Diagnosis Date Arthritis Carotid stenosis, bilateral 12/30/2016 US 02/2021 20-40% b/l Elevated alkaline phosphatase level 12/05/[address] Corona Elevated fasting glucose 10/02/2021 Elevated vitamin B12 level 10/02/2021 Endometrial hyperplasia without atypia 12/18/2020 December 18, 2020 Elects for repeat EMB in 6 months. Blanca Harley MD Essential hypertension 03/09/2013 Former smoker 05/11/2013 Gallstones 03/03/2014 Liver fibrosis 01/16/2022 Seeing Gastro- dr. corona LPRD (laryngopharyngeal reflux disease) 05/11/[address] Corona Mixed hyperlipidemia 03/22/2013 Obesity, Class II, BMI 35-39.9 08/31/2015 Pancreatic cyst 11/09/2021 MRI 10/2021. Suspect IPMN. Consult to gastro placed. Tubular adenoma polyp of rectum 07/17/[address] Corona Vitamin D deficiency 10/01/2021 Well adult exam 07/17/2020 Last done: 10/01/2021 MEDICATIONS: Vitamin E, dl, acetate, (VITAMIN E) 400 unit capsule Take 1 capsule by mouth twice daily. Per Gastro: Dr. Corona ursodiol (ACTIGALL) 300 mg capsule Take 1 capsule by mouth twice daily. Per Gastro: Dr. Corona hydroCHLOROthiazide (HYDRODIURIL, ESIDRIX) 25 mg tablet Take 1 tablet by mouth once daily. pantoprazole DR (PROTONIX) 40 mg tablet Take 1 tablet by mouth twice daily. Take on empty stomach, 1/2 hr before meal. atorvastatin (LIPITOR) 20 mg tablet Take 1 tablet by mouth daily at bedtime. For cholesterol. losartan (COZAAR) 100 mg tablet Take 1 tablet by mouth once daily. cyanocobalamin (VITAMIN B-12) 1,000 mcg tab Take 1 tablet by mouth once daily. ergocalciferol 50,000 unit capsule (VITAMIN D2, DRISDOL) Take 1 capsule by mouth one time a week. ALLERGIES: ALLERGIES Allergen Reactions Asa [Salicylates] Hives Phenergan [Prometha* Itching suppositiries Codeine Intolerance Hydrocodone Cough, Vomiting, Shortness of Breath Ibuprofen Intolerance, GI Upset Lisinopril Cough Oxycodone GI Upset, Anaphylaxis, Other: See Comments Body aches. Hot flashes VITALS: BP 124/76 Pulse 70 Temp 36.6 C (97.8 F) Resp 16 Wt 98 kg (216 lb) LMP 03/30/2010 SpO2 98% BMI 38.26 kg/m PHYSICAL EXAM: GEN: pleasant, no acute distress, alert HEENT: PERRL, EOMI, NECK: supple, HEART: regular rate, regular rhythm, no murmurs LUNGS: clear to auscultation, no wheezes or crackles, no increased WOB BACK: midline and paraspinal lumbar tenderness to palpation. EXT: no clubbing, no cyanosis, no edema KNEE: bilateral. No effusion or deformity. FROM with pain. Bilateral crepitus. Medial and lateral joint line tenderness. No thigh or trochanter tenderness. Stable to varus and valgus strain. Negative anterior drawer test. Negative posterior drawer test. Component Latest Ref Rng & Units 04/09/2022 Hemoglobin A1C 4.3 - 5.6 % 5.6 Component Latest Ref Rng & Units 04/09/2022 eGFR >=60 mL/min/1.73m 76 ASSESSMENT/PLAN: 1. Pain in both knees, unspecified chronicity - ICD9: 719.46, ICD10: M25.561, M25.562 - XR KNEE GENERAL 4V AP BOTH/PA BOTH/LAT/MERC BILATERAL - left medial narrowing. No acute fractures. Differential includes ~L4 radicular pain, knee joint arthritis, rheumatologic condition. Has allergy/intolerance to NSAIDs. - PREDNISONE 10 MG TABLET taper. Schedule follow up with primary care. Hal Desai MD documented in this encounter [facility] 05-14-2022 Instructions Florencia Lew PA-C - 05/14/2022 9:51 AM EDT The following instructions are important for you related to your office visit today with the [facility]. INSTRUCTIONS FOLLOWING A POLYP FOUND AT COLONOSCOPY You were found to have adenomatous colon polyps. I recommend you undergo repeat endoscopy in 1 year. If you note bleeding, change in bowel habits, or other suspicious colon related symptoms before that time, those symptoms should be evaluated as necessary. If you have any difficulties or concerns, you should contact our office immediately. If you note any additional difficulties, questions, or concerns, you should contact our office immediately @ [phone] and ask to be transferred to the General Surgery department. documented in this encounter [facility] 05-14-2022 History of Presen t illness Narrative FOLLOW UP VISIT - ENDOSCOPY NAME: Isabel Sahni [facility] NO.: [id number] DATE OF SERVICE: 05/14/2022 : 1955 REFERRING PHYSICIAN: Aristeo Arias MD Isabel is a patient I am following for high-risk surveillance colonoscopy due to personal history of colon polyps. Dr. Palmer performed lower endoscopy on 03/12/22. Findings and recommendations included: Impression: - Two 5 to 20 mm polyps in the cecum, removed piecemeal using a hot snare. Resected and retrieved. Clips (MR conditional) were placed. - Diverticulosis in the sigmoid colon. - The examination was otherwise normal on direct and retroflexion views. Recommendation: - Discharge patient to home. - Resume previous diet. - Continue present medications. - Await pathology results. - Repeat colonoscopy in 1 year for surveillance. - MAC next time - Resume anticoagulant at prior dose. - Patient has a contact number available for emergencies. The signs and symptoms of potential delayed complications were discussed with the patient. Return to normal activities tomorrow. Written discharge instructions were provided to the patient. Pathology demonstrated: FINAL DIAGNOSIS A. Cecum, polyp x2, biopsy: Fragments of tubular adenoma The patient notes no complaints since the procedure other than did have some recall of procedure. VITALS: Blood pressure 152/84, pulse 72, temperature 36.2 C (97.1 F), height 160 cm (5' 3 ), weight 99.3 kg (219 lb), last menstrual period 03/30/2010, SpO2 96 %. General: patient is alert, cooperative, pleasant and in no acute distress On examination, the abdomen is benign. Assessment IMPRESSION: s/p colonoscopy with polypectomy x 2-tubular adenomas, removed piecemeal PLAN: The operative findings and pathology report were reviewed with the patient, and the patient has had the opportunity to ask questions and have questions answered. If the patient notes any problems or changes in bowel function, the patient should contact me immediately. Otherwise I recommend follow up endoscopy in 1 year with MAC as per surgeon recommendation. HM updated and recall letter generated. Patient verbalized understanding of all above and agreed with the plan Diagnoses: (Z86.010) History of colonic polyps (primary encounter diagnosis) (D36.9) Tubular adenoma I spent a total of 24 minutes on the date of the service which included preparing to see the patient, [id number] patient care, completing clinical documentation, obtaining and/or reviewing separately obtained history, communicating with other HCPs (not separately reported), independently interpreting results (not separately reported), and communicating results to the patient/family/caregiver. Florencia Lew PA-C documented in this encounter [facility] 05-08-2022 Miscellaneous Notes Patient notified of results and provider's instructions. Patient verbalizes understanding. Joy Mcfarlane RN Left message for pt to contact office. 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 No changes in Tx needed. documented in this encounter [facility] 05-07-2022 Miscellaneous Notes Pt notified of same with verbalized understanding. Altaf Bean LPN Xray does show moderate arthritic changes. documented in this encounter [facility] 05-07-2022 Instructions Prudencio Coelho PA-C - 05/07/2022 10:[address] Corona's office for refills on documented in this encounter [facility] 05-07-2022 History of Presen t illness Narrative Chief Complaint Patient presents with: Recheck: Medication and bp HPI Isabel Sahni is a 66 year old female who presents here today for recheck BP. Patient was seen last month.HCTZ was increased to 25mg. Patient is tolerating the medication okay. New concern: chronic back pain. Has been a little worse lately. Past medical history, appointments, medications, allergies reviewed. Previous Medical History PAST MEDICAL HISTORY Diagnosis Date Arthritis Carotid stenosis, bilateral 12/30/2016 US 02/2021 20-40% b/l Elevated alkaline phosphatase level 12/05/[address] Corona Elevated fasting glucose 10/02/2021 Elevated vitamin B12 level 10/02/2021 Endometrial hyperplasia without atypia 12/18/2020 December 18, 2020 Elects for repeat EMB in 6 months. Blanca Harley MD Essential hypertension 03/09/2013 Former smoker 05/11/2013 Gallstones 03/03/2014 Liver fibrosis 01/16/2022 Seeing Gastro- dr. corona LPRD (laryngopharyngeal reflux disease) 05/11/[address] Corona Mixed hyperlipidemia 03/22/2013 Obesity, Class II, BMI 35-39.9 08/31/2015 Pancreatic cyst 11/09/2021 MRI 10/2021. Suspect IPMN. Consult to gastro placed. Tubular adenoma polyp of rectum 07/17/[address] Corona Vitamin D deficiency 10/01/2021 Well adult exam 07/17/2020 Last done: 10/01/2021 Previous Surgical History PAST SURGICAL HISTORY Procedure Laterality Date ABDOMINAL SURGERY HX COLONOSCOPY 03/12/2022 repeat in 1 year COLONOSCOPY FLX DX W/COLLJ SPEC WHEN PFRMD 10/28/2013 Colonoscopy COLONOSCOPY FLX DX W/COLLJ SPEC WHEN PFRMD 01/27/2017 Colonoscopy ENDOMETRIAL BX W/WO ENDOCERVIX BX W/O DILAT SPX 11/16/2007 Irregular menses/Menorrhagia ENDOMETRIAL BX W/WO ENDOCERVIX BX W/O DILAT SPX 03/13/2010 ERCP 2013 with stent ESOPHAGOGASTRODUODENOSCOPY TRANSORAL DIAGNOSTIC 05/05/2014 EGD ESOPHAGOGASTRODUODENOSCOPY TRANSORAL DIAGNOSTIC 09/14/2015 EGD HYSTEROSCOPY BX ENDOMETRIUM&/POLYPC W/WO D&C N/A 11/30/2020 resection of endometrial polyps LAPAROSCOPY SURG CHOLECYSTECTOMY 03/03/2014 PAST SURGICAL HISTORY OF 03/17/2007 Left knee surgery TONSILLECTOMY HX Family History FAMILY HISTORY Problem Relation Age of Onset Diabetes Mother Alcohol/Drug Daughter Diabetes Brother Diabetes Brother Patient Allergies ALLERGIES Allergen Reactions Asa [Salicylates] Hives Phenergan [Prometha* Itching suppositiries Codeine Intolerance Hydrocodone Cough, Vomiting, Shortness of Breath Ibuprofen Intolerance, GI Upset Lisinopril Cough Oxycodone GI Upset, Anaphylaxis, Other: See Comments Body aches. Hot flashes Current Medications Current Outpatient Medications on File Prior to Visit Medication Sig Vitamin E, dl, acetate, (VITAMIN E) 400 unit capsule Take 1 capsule by mouth twice daily. Per Gastro: Dr. Corona ursodiol (ACTIGALL) 300 mg capsule Take 1 capsule by mouth twice daily. Per Gastro: Dr. Corona hydroCHLOROthiazide (HYDRODIURIL, ESIDRIX) 25 mg tablet Take 1 tablet by mouth once daily. pantoprazole DR (PROTONIX) 40 mg tablet Take 1 tablet by mouth twice daily. Take on empty stomach, 1/2 hr before meal. atorvastatin (LIPITOR) 20 mg tablet Take 1 tablet by mouth daily at bedtime. For cholesterol. losartan (COZAAR) 100 mg tablet Take 1 tablet by mouth once daily. cyanocobalamin (VITAMIN B-12) 1,000 mcg tab Take 1 tablet by mouth once daily. ergocalciferol 50,000 unit capsule (VITAMIN D2, DRISDOL) Take 1 capsule by mouth one time a week. Current Facility-Administered Medications on File Prior to Visit Medication perflutren lipid microspheres 1.3 mL in NaCl (PF) 0.9% 10 mL injection (DEFINITY) sodium chloride 0.9 % (flush) 10 mL (BD POSIFLUSH) Social History Social History Tobacco Use Smoking status: Former Years: 25.00 Types: Cigarettes Start date: 03/18/2020 Smokeless tobacco: Never Substance Use Topics Alcohol use: No Drug use: No Review of Symptoms REVIEW OF SYSTEMS GENERAL: No weight loss, malaise or fevers EXAM: BP 112/80 (BP Site: Left Arm, BP Position: Sitting, BP Cuff Size: Large Adult) Pulse 68 Temp 36.6 C (97.9 F) Resp 18 Wt 98.4 kg (217 lb) LMP 03/30/2010 BMI 37.25 kg/m General Appearance: Well appearing, alert, in no acute distress, well-hydrated, well nourished.. Musculoskeletal: No joint swelling, deformity, or tenderness. Health Maintenance List BP CONTROLLED (<130/80) Never done SHINGRIX VACCINE(1 of 2) Never done DEPRESSION ASSESSMENT Never done HEPATITIS C SCREENING due on 10/01/2022 HIV SCREENING due on 10/01/2022 MAMMOGRAM due on 10/29/2022 ANNUAL PCP TEAM CHRONIC DISEASE VISIT due on 04/09/2023 COLORECTAL CANCER SCREENING due on 03/12/2025 DIABETES SCREEN due on 04/09/2025 PAP TESTING due on 10/24/2025 HPV TESTING due on 10/24/2025 LIPID SCREEN due on 04/09/2027 DTAP,TDAP,TD(2 - Td or Tdap) due on 10/02/2031 INFLUENZA Completed COVID-19 VACCINE Completed Data reviewed ASSESSMENT/PLAN: 1. Essential hypertension - ICD9: 401.9, ICD10: I10 (primary diagnosis) - good control - Continue current medication(s) - Recommended regular aerobic exercise. - Recommend home blood pressure monitoring, to bring results in on next visit - Goal of BP <130/80 2. Chronic midline low back pain without sciatica - ICD9: 724.2, 338.29, ICD10: M54.50, G89.29 Xray today Discussed Physical Therapy but patient declines. - XR LUMBAR GENERAL 3V AP/LAT/L5-S1 Prudencio Coelho PA-C documented in this encounter [facility] 04-29-2022 History of Presen t illness Narrative Patient presents for flu and COVID vaccines. Denies any problems at this time. Tolerated injections well. Rosie Trejo LPN documented in this encounter [facility] 04-16-2022 Miscellaneous Notes Unable to reach. Left detailed message on identified VM with provider's result. Cielo Hudson MA Yes. Recent labs are all okay Left message for patient. ANASTASIYA Mims Dr. Labs?? Let patient know recent were all ok. documented in this encounter [facility] 04-09-2022 Instructions Aristeo Arias MD - 04/09/2022 9:06 AM EDT Wait to complete your blood work until on or after 04/26/2022 documented in this encounter [facility] 04-09-2022 History of Presen t illness Narrative Chief Complaint Patient presents with: F/U 6 months HPI Isabel Sahni is a 66 year old female who presents here today for Above Complaints. and Chronic Medical Conditions.. Patient with hx of HTN, HLP, carotid stenosisi, reflux seeing Gastro, former smoker, Vit D def, elevated blood sugar, obesity pancreatic cyst and those as reviewed below. Patient seeing Dr. Corona for her liver labs. Has been doing ok. Has sen JAGDISH a few times for elevated blood pressure and had HCTZ 12.5 mg a day started. She thinks she has been ok with it. Has noted some cramps in her legs at times. Past medical history, appointments, medications, allergies reviewed. Previous Medical History PAST MEDICAL HISTORY Diagnosis Date Acid reflux Arthritis Carotid stenosis RIGHT 20-39 % LEFT 0-19% per US 07/2015 Elevated fasting glucose 10/02/2021 Elevated vitamin B12 level 10/02/2021 Essential hypertension 03/09/2013 Gallstones 03/03/2014 HTN (hypertension) Hyperlipidemia Liver fibrosis 01/16/2022 Seeing Gastro- dr. corona Mixed hyperlipidemia 03/22/2013 Obesity Pancreatic cyst 11/09/2021 MRI 10/2021. Suspect IPMN. Consult to gastro placed. Tobacco use Vitamin D deficiency 10/01/2021 Previous Surgical History PAST SURGICAL HISTORY Procedure Laterality Date ABDOMINAL SURGERY HX COLONOSCOPY 03/12/2022 repeat in 1 year COLONOSCOPY FLX DX W/COLLJ SPEC WHEN PFRMD 10/28/2013 Colonoscopy COLONOSCOPY FLX DX W/COLLJ SPEC WHEN PFRMD 01/27/2017 Colonoscopy ENDOMETRIAL BX W/WO ENDOCERVIX BX W/O DILAT SPX 11/16/2007 Irregular menses/Menorrhagia ENDOMETRIAL BX W/WO ENDOCERVIX BX W/O DILAT SPX 03/13/2010 ERCP 2014 with stent ESOPHAGOGASTRODUODENOSCOPY TRANSORAL DIAGNOSTIC 05/05/2014 EGD ESOPHAGOGASTRODUODENOSCOPY TRANSORAL DIAGNOSTIC 09/14/2015 EGD HYSTEROSCOPY BX ENDOMETRIUM&/POLYPC W/WO D&C N/A 11/30/2020 resection of endometrial polyps LAPAROSCOPY SURG CHOLECYSTECTOMY 03/03/2014 PAST SURGICAL HISTORY OF 03/17/2007 Left knee surgery TONSILLECTOMY HX Family History FAMILY HISTORY Problem Relation Age of Onset Diabetes Mother Alcohol/Drug Daughter Diabetes Brother Diabetes Brother Patient Allergies ALLERGIES Allergen Reactions Asa [Salicylates] Hives Phenergan [Prometha* Itching suppositiries Codeine Intolerance Hydrocodone Cough, Vomiting, Shortness of Breath Ibuprofen Intolerance, GI Upset Lisinopril Cough Oxycodone GI Upset, Anaphylaxis, Other: See Comments Body aches. Hot flashes Current Medications Current Outpatient Medications on File Prior to Visit Medication Sig pantoprazole DR (PROTONIX) 40 mg tablet Take 1 tablet by mouth twice daily. Take on empty stomach, 1/2 hr before meal. atorvastatin (LIPITOR) 20 mg tablet Take 1 tablet by mouth daily at bedtime. For cholesterol. losartan (COZAAR) 100 mg tablet Take 1 tablet by mouth once daily. hydroCHLOROthiazide (HYDRODIURIL, ESIDRIX) 12.5 mg capsule Take 1 capsule by mouth once daily. cyanocobalamin (VITAMIN B-12) 1,000 mcg tab Take 1 tablet by mouth once daily. ergocalciferol 50,000 unit capsule (VITAMIN D2, DRISDOL) Take 1 capsule by mouth one time a week. Current Facility-Administered Medications on File Prior to Visit Medication perflutren lipid microspheres 1.3 mL in NaCl (PF) 0.9% 10 mL injection (DEFINITY) sodium chloride 0.9 % (flush) 10 mL (BD POSIFLUSH) Social History Social History Tobacco Use Smoking status: Former Years: 25.00 Types: Cigarettes Start date: 03/18/2020 Smokeless tobacco: Never Substance Use Topics Alcohol use: No Drug use: No Review of Symptoms REVIEW OF SYSTEMS GENERAL: No weight loss, malaise or fevers NECK: Negative for lumps, goiter, pain and significant neck swelling RESPIRATORY: Negative for cough, hemoptysis, wheezing, COPD, dyspnea or increased shortness of breath CARDIOVASCULAR: Negative for chest pain, leg swelling, hypertension, CHF or palpitations GI: No nausea, vomiting, or diarrhea and No frequent heartburn or reflux symptoms ENDOCRINE: Negative for cold or heat intolerance, polyuria, polydipsia and goiter NEURO: No history of headaches, syncope, paralysis, seizures or tremors EXAM: BP 154/86 Pulse 72 Resp 16 Wt 100.2 kg (221 lb) LMP 03/30/2010 BMI 37.93 kg/m Last 3 Encounter Wt Readings: Date: Wt: 04/09/2022 100.2 kg (221 lb) 01/08/2022 99.3 kg (219 lb) 12/25/2021 98.9 kg (218 lb) Last 4 Encounter Wt Readings: Date: Wt: 04/09/2022 100.2 kg (221 lb) 01/08/2022 99.3 kg (219 lb) 12/25/2021 98.9 kg (218 lb) 12/24/2021 100.6 kg (221 lb 12.5 oz) General Appearance: Well appearing, alert, in no acute distress, well-hydrated, well nourished. and Obese. Neck: Supple, no adenopathy; thyroid symmetric, normal size, no bruits. Lungs: Lungs clear to auscultation. No wheezing, rhonchi, rales.. Heart: RRR without murmur, gallop, or rubs. No ectopy. Abdomen: Normal abdominal exam, Abdomen soft, non-tender. Bowel sounds normal. No masses, organomegaly. Extremities: No deformities, edema, skin discoloration, Good capillary refill. . Musculoskeletal: Muscular strength intact, No joint swelling, deformity, or tenderness. Peripheral Pulses: Normal. Neurologic: Gait normal. Sensation to light touch intact.. Health Maintenance List SHINGRIX VACCINE(1 of 2) Never done DEPRESSION ASSESSMENT Never done COVID-19 VACCINE(5 - Booster for Pfizer series) due on 12/12/2021 INFLUENZA(1) due on 03/14/2022 HEPATITIS C SCREENING due on 10/01/2022 HIV SCREENING due on 10/01/2022 MAMMOGRAM due on 10/29/2022 ANNUAL PCP TEAM CHRONIC DISEASE VISIT due on 01/08/2023 BP CONTROLLED (<130/80) due on 01/08/2023 DIABETES SCREEN due on 01/22/2025 COLORECTAL CANCER SCREENING due on 03/12/2025 PAP TESTING due on 10/24/2025 HPV TESTING due on 10/24/2025 LIPID SCREEN due on 10/01/2026 DTAP,TDAP,TD(2 - Td or Tdap) due on 10/02/2031 Data reviewed Component Latest Ref Rng & Units 10/01/2021 01/08/2022 01/22/2022 WBC 3.70 - 11.00 k/uL 4.94 RBC 3.90 - 5.20 m/uL 4.49 Hemoglobin 11.5 - 15.5 g/dL 14.7 Hematocrit 36.0 - 46.0 % 45.7 MCV 80.0 - 100.0 fL 101.8 (H) MCH 26.0 - 34.0 pg 32.7 MCHC 30.5 - 36.0 g/dL 32.2 RDW-CV 11.5 - 15.0 % 12.2 Platelet Count 150 - 400 k/uL 172 MPV 9.0 - 12.7 fL 12.3 NRBC /100 WBC 0.0 Absolute nRBC <0.01 k/uL <0.01 Neut% % 47.0 Abs Neut (ANC) 1.45 - 7.50 k/uL 2.32 Lymph% % 44.0 Abs Lymph 1.00 - 4.00 k/uL 2.17 Mchenry% % 9.0 Abs Mchenry <0.87 k/uL 0.44 Eosin% % 0.0 Abs Eosin <0.46 k/uL 0.00 Baso% % 0.0 Abs Baso <0.11 k/uL 0.00 Platelet Estimate Adequate Red Cell Morph Unremarkable DTYPE Manual Protein, Total 6.3 - 8.0 g/dL 7.2 6.8 Albumin 3.9 - 4.9 g/dL 4.0 4.0 Calcium 8.5 - 10.2 mg/dL 9.4 9.2 Bilirubin, Total 0.2 - 1.3 mg/dL 0.7 0.4 Alkaline Phosphatase 34 - 123 U/L 179 (H) 125 (H) AST 13 - 35 U/L 21 23 ALT 7 - 38 U/L 27 17 Glucose 74 - 99 mg/dL 95 88 BUN 7 - 21 mg/dL 11 10 Creatinine 0.58 - 0.96 mg/dL 0.68 0.96 Sodium 136 - 144 mmol/L 140 140 Potassium 3.7 - 5.1 mmol/L 3.9 3.6 (L) Chloride 97 - 105 mmol/L 106 (H) 101 CO2 22 - 30 mmol/L 21 (L) 26 Anion Gap 9 - 18 mmol/L 13 13 eGFR >=60 mL/min/1.73m 97 66 Color Yellow Yellow Clarity Clear Clear Glucose, Urine Negative Negative Bilirubin, Urine Negative Negative Ketones, Urine Negative Negative Specific [place], Ur 1.005 - 1.030 1.012 Hemoglobin/Blood,Ur Negative Negative pH, Urine 5.0 - 8.0 6.0 Protein, Urine Negative Negative Urobilinogen Negative Negative Nitrites Negative Negative Leukest Negative Negative WBC, Urine 0-5 /HPF 0-5 /HPF RBC, Urine 0-3 /HPF 0-3 /HPF Epithelial Cells /HPF Few Total Cholesterol, Nonfasting <200 mg/dL 199 Triglycerides, Nonfasting <150 mg/dL 165 (H) HDL Cholesterol, Nonfasting >39 mg/dL 48 LDL Cholesterol, Nonfasting <100 mg/dL 118 (H) Non HDL Cholesterol, Nonfasting <130 mg/dL 151 (H) VLDL Cholesterol, Nonfasting <30 mg/dL 33 (H) Total Chol/HDL Ratio, Nonfasting <5.10 mg/dL 4.15 LDL/HDL Ratio, Nonfasting <2.54 mg/dL 2.46 Hemoglobin A1C 3.8 - 5.6 % 6.1 (H) 5.8 (A) Estimated Average Glucose mg/dL 128 Magnesium 1.7 - 2.3 mg/dL 1.8 1.9 Vitamin B12 232-1,245 pg/mL 221 (L) 464 Vitamin D 25 Hydroxy 31.0 - 80.0 ng/mL 28.9 (L) 29.1 (L) ASSESSMENT/PLAN: 1. Essential hypertension - ICD9: 401.9, ICD10: I10 (primary diagnosis) - suboptimal control - Continue current medication(s) - Increase HCTZ to 25 mg a day - Recommended regular aerobic exercise. - Recommend home blood pressure monitoring, to bring results in on next visit - Goal of BP <130/80 Check - LIPID PANEL, NONFASTING - COMP METABOLIC PANEL 2. Mixed hyperlipidemia - ICD9: 272.2, ICD10: E78.2 - to be determined upon return of lab results - Encouraged following a low fat, low cholesterol diet. - Discussed the benefits of regular aerobic exercise and weight loss. - Encouraged following a low carbohydrate, healthy oil intake diet. - Continue current therapy. - LIPID PANEL, NONFASTING - COMP METABOLIC PANEL 3. Elevated fasting glucose - ICD9: 790.21, ICD10: R73.01 Check - HGB A1C 4. LPRD (laryngopharyngeal reflux disease) - ICD9: 478.79, ICD10: K21.9 - Continue treatment with protonix 40 mg BID 5. Carotid stenosis, bilateral - ICD9: 433.10, 433.30, ICD10: I65.23 Check - US CAROTID ARTERIES [facility] 6. Vitamin D deficiency - ICD9: 268.9, ICD10: E55.9 Check - VITAMIN D 25 HYDROXY 7. Obesity, Class II, BMI 35-39.9 - ICD9: 278.00, ICD10: E66.9 Weight increasing - Behavioral intervention 8. Low serum vitamin B12 - ICD9: 266.2, ICD10: E53.8 - last lab was ok. Cont replacement 9. Leg cramps - ICD9: 729.82, ICD10: R25.2 Check - MAGNESIUM BLD and potassium Requested Prescriptions Signed Prescriptions Disp Refills Vitamin E, dl, acetate, (VITAMIN E) 400 unit capsule Sig: Take 1 capsule by mouth twice daily. Per Gastro: Dr. Corona ursodiol (ACTIGALL) 300 mg capsule Sig: Take 1 capsule by mouth twice daily. Per Gastro: Dr. Corona hydroCHLOROthiazide (HYDRODIURIL, ESIDRIX) 25 mg tablet 30 tablet 5 Sig: Take 1 tablet by mouth once daily. NV for flu and COVID Booster and Flu in a few weeks F/u JAGDISH HTN med check in 4 weeks F/u 6 months WAE Aristeo Arias MD documented in this encounter [facility] 03-12-2022 Nurse Note Arrived in phase II via cart, left lateral position, eyes open, answering questions, alert to self and event. Skin warm and dry, respirations regular and unlabored, abdomen soft soft and non distended, reports abdomen is tender indicating at lower abdomen, reports it aches continuously. Advised to let air pass rectally as able, warm blanket applied, Dr Farrell at bedside, is present, reviewed images of polyps seen during procedure. Dr Farrell advised that he would like to repeat procedure in 1 year and should be done in [place] so MAC can be offered. documented in this encounter [facility] 03-12-2022 History and physical note UPDATED PROCEDURAL SEDATION HISTORY AND PHYSICAL EXAMINATION SERVICE DATE: 03/12/2022 SERVICE TIME: 9:57 AM PHYSICAL EXAM MUST BE COMPLETED ON ADMISSION PROCEDURE: Procedure Indications: The History and Physical (completed in the past 30 days) has been reviewed and the patient has been examined. The contents accurately reflect the patient's condition with the following additions or revisions since the H&P was completed. ASA Class: ASA Class:: Patient with mild systemic disease Examination indicates no changes. AIRWAY: Airway Visualization of Uvula: Yes Mouth opening greater than 2 fingerbreadths: Yes Neck Full Range of Motion: Yes LUNGS: Lungs clear to auscultation CARDIAC: Regular rhythm,Regular rate Provisional Diagnosis/Treatment Plan: personal history of colon polyps - Colonoscopy SEDATION GOAL: Moderate This H&P can be found in the attached. SIGNATURE: Riley Farrell MD PATIENT NAME: Isabel Sahni DATE: March 12, 2022 TIME: 9:57 AM Source Note - Riley Farrell MD - 03/12/2022 10:00 AM EDT Images from the original note were not included. HISTORY AND PHYSICAL Isabel Sahni 1955 REFERRING PHYSICIAN: Prudencio Coelho PA-C CHIEF COMPLAINT: Consult (Colonoscopy) HPI: The patient is a 66 year old female referred for surveillance endoscopy due to personal history of colon polyps. Isabel notes no colon complaints. Patient denies any change in bowel habits, weight changes, blood in stools, black tarry stools or abdominal pain. Denies family history of colon issues. The patient notes no upper GI complaints. Isabel has undergone prior endoscopy. Most recent colonoscopy 01/27/[address] Gonzalez with removal of a large adenomatous cecal polyp, 3 year follow-up recommended. Patient's past medical history is significant for hypertension, hyperlipidemia, carotid stenosis. Patient follows with Dr. Arias in primary care for her chronic medical conditions. Patient denies chest pain, shortness of breath or recent hospitalizations. Denies problems with sedation in the past. PAST MEDICAL HISTORY PAST MEDICAL HISTORY Diagnosis Date Acid reflux Carotid stenosis RIGHT 20-39 % LEFT 0-19% per US 07/2015 Essential hypertension 03/09/2013 Gallstones 03/03/14 HTN (hypertension) Hyperlipidemia Mixed hyperlipidemia 03/22/2013 Obesity Tobacco use PAST SURGICAL HISTORY PAST SURGICAL HISTORY Procedure Laterality Date COLONOSCOPY FLX DX W/COLLJ SPEC WHEN PFRMD 10/28/2013 Colonoscopy COLONOSCOPY FLX DX W/COLLJ SPEC WHEN PFRMD 01/27/2017 Colonoscopy ENDOMETRIAL BX W/WO ENDOCERVIX BX W/O DILAT SPX 11/16/2007 Irregular menses/Menorrhagia ENDOMETRIAL BX W/WO ENDOCERVIX BX W/O DILAT SPX 03/13/2010 ERCP 2013 with stent ESOPHAGOGASTRODUODENOSCOPY TRANSORAL DIAGNOSTIC 05/05/2014 EGD ESOPHAGOGASTRODUODENOSCOPY TRANSORAL DIAGNOSTIC 09/14/2015 EGD HYSTEROSCOPY BX ENDOMETRIUM&/POLYPC W/WO D&C N/A 11/30/2020 resection of endometrial polyps LAPAROSCOPY SURG CHOLECYSTECTOMY 03/03/2014 PAST SURGICAL HISTORY OF 03/17/2007 Left knee surgery CURRENT MEDICATIONS Current Outpatient Medications Medication Sig cyanocobalamin (VITAMIN B-12) 1,000 mcg tab Take 1 tablet by mouth once daily. ergocalciferol 50,000 unit capsule (VITAMIN D2, DRISDOL) Take 1 capsule by mouth one time a week. pantoprazole DR (PROTONIX) 40 mg tablet Take 1 tablet by mouth twice daily. Take on empty stomach, 1/2 hr before meal. atorvastatin (LIPITOR) 20 mg tablet Take 1 tablet by mouth daily at bedtime. For cholesterol. cyclobenzaprine (FLEXERIL) 10 mg tablet Take 1 tablet by mouth three times daily as needed for muscle spasm. losartan (COZAAR) 100 mg tablet Take 1 tablet by mouth once daily. Current Facility-Administered Medications Medication Dose Route Frequency perflutren lipid microspheres 1.3 mL in NaCl (PF) 0.9% 10 mL injection (DEFINITY) INTRAVENOUS DIRECTED PRN sodium chloride 0.9 % (flush) 10 mL (BD POSIFLUSH) 10 mL INTRAVENOUS DIRECTED PRN ALLERGIES: Asa [Salicylates], Phenergan [Promethazine], Codeine, Hydrocodone, Ibuprofen, Lisinopril, and Oxycodone PERSONAL HISTORY: SOCIAL HISTORY Social History Tobacco Use Smoking status: Former Smoker Years: 25.00 Types: Cigarettes Start date: 03/18/2020 Smokeless tobacco: Never Used Substance Use Topics Alcohol use: No Drug use: No FAMILY HISTORY: FAMILY HISTORY FAMILY HISTORY Problem Relation Age of Onset Diabetes Mother Alcohol/Drug Daughter Diabetes Brother Diabetes Brother REVIEW OF SYMPTOMS: The review of systems data was entered by the nurse and reviewed by ak Nursing Notes: Ana Mejía 11/05/2021 9:12 AM Signed REVIEW OF SYSTEMS: General: The patient denies fatigue, denies weight loss, denies weight gain, denies feeling hot, and denies feelings of cold. Eyes: The patient denies glaucoma, denies eye injury/surgery, wears glasses or contacts. Ear/Nose/Throat: The patient denies allergies, denies hayfever, denies ear infections, and denies bloody noses. Cardiovascular: The patient denies chest pain, denies heart disease, NOTES high blood pressure,denies cardiac stent, denies prior heart attack, denies irregular heart beat, NOTES high cholesterol, denies poor circulation, denies heart failure, other cardiac issues, denies claudication, denies cold feet, denies peripheral arterial stent. Respiratory: The patient denies tuberculosis, denies pneumonia, denies frequent cough, denies pulmonary embolism, denies shortness of breath, and denies coughing up blood. Gastrointestinal: The patient denies difficulty swallowing, NOTES acid reflux, denies ulcers, denies vomiting, denies jaundice/hepatitis, denies gallbladder problems, denies black or tarry stools, denies hemorrhoids, denies bleeding from rectum, denies diverticulitis, denies constipation, denies diarrhea, denies loss of stool control, and denies hernias. Kidney/Bladder: The patient denies kidney stones, denies urine infections, and denies bloody urine. Skin: The patient denies a history of skin cancer, denies bleeding/changing moles, and denies a history of skin rash. Neurologic: The patient denies a history of epilepsy/convulsions, denies headaches, denies head/spinal injuries, and denies stroke/TIA. Psychiatric: The patient denies psychiatric medications, denies depression, and denies voices, denies substance abuse. Endocrine: The patient denies thyroid disorders, denies diabetes, and denies hormonal problems. Hematologic: The patient denies a history of bruising, denies bleeding, and denies anemia, denies blood clots. Infections: The patient NOTES a history of measles and mumps, denies rheumatic fever, and denies sexually transmitted diseases. Musculoskeletal: The patient denies back pain/injury, denies back problems, denies sciatica, denies knee/foot trouble, NOTES arthritis, or denies gout. When was patient's last Mammogram screening? 10/30/2021 Last Colonoscopy: 01/27/2017 Ana Mejía I have confirmed and edited as necessary, the PFSH and ROS obtained by others. Florencia Lew PA-C PHYSICAL EXAMINATION: General: The patient is 66 year old female, well nourished, well hydrated in no acute distress. The patient is oriented to time, place, and person. VITALS: Blood pressure 178/80, pulse 80, temperature 36.6 C (97.8 F), height 162.6 cm (5' 4 ), weight 100.7 kg (222 lb), last menstrual period 03/30/2010, SpO2 96 %. Body mass index is 38.11 kg/m . HEENT: Normal cephalic, ataumatic, pupils are equally round, sclera are anicteric, mucous membranes are moist, oropharynx is clear. Neck has no masses, asymmetry or lymphadenopathy. Respiratory: Clear to auscultation and percussion. Normal respiratory excursion and pattern. Cardiac: Examination is regular rate and rhythm. Normal S1/S2 Abdominal exam: Soft, nontender, with no palpable masses. No hepatosplenomegaly. No palpable hernias. Extremities: no clubbing, cyanosis or edema. No adenopathy. LABORATORY VALUES: As Noted RADIOLOGIC STUDIES: As Noted Assessment IMPRESSION: encounter for high-risk screening colonoscopy due to personal history of colon polyps PLAN: I have reviewed my findings with the surgeon. Will plan for lower endoscopy. We discussed the risks and benefits of the planned endoscopy. I have informed the patient that complications can occur including failure to complete the endoscopy and perforation. The patient had the opportunity to ask questions concerning the planned endoscopy. My staff has also explained the procedure to the patient in understandable terms and has given the patient printed material concerning the procedure. The patient freely consents to surgery. The patient was offered a surgery/procedure at a [facility] facility. I have counseled the patient regarding the risk of exposure to and/or potential harm posed by the COVID-19 virus with having a surgery/procedure at this time versus the risk of delaying the surgery/procedure. It is not possible to know either the risk of delaying the surgery or procedure or chance of getting an infection with perfect accuracy, but a joint decision was made between the patient and myself to proceed at this time with endoscopy. I plan to use Golytely bowel preparation Diagnoses: (Z12.11) Encounter for screening for malignant neoplasm of colon (primary encounter diagnosis) (D12.8) Tubular adenoma polyp of rectum Consultation requested by Prudencio Coelho PA-C for an opinion regarding history of colon polyps and need for surveillance colonoscopy. My final recommendations will be communicated back to the requesting physician by way of shared Medical record or letter to requesting physician via [place] mail. Florencia Lew PA-C Images from the original note were not included. HISTORY AND PHYSICAL Isabel Sahni 1955 REFERRING PHYSICIAN: Prudencio Coelho PA-C CHIEF COMPLAINT: Consult (Colonoscopy) HPI: The patient is a 66 year old female referred for surveillance endoscopy due to personal history of colon polyps. Isabel notes no colon complaints. Patient denies any change in bowel habits, weight changes, blood in stools, black tarry stools or abdominal pain. Denies family history of colon issues. The patient notes no upper GI complaints. Isabel has undergone prior endoscopy. Most recent colonoscopy 01/27/[address] Gonzalez with removal of a large adenomatous cecal polyp, 3 year follow-up recommended. Patient's past medical history is significant for hypertension, hyperlipidemia, carotid stenosis. Patient follows with Dr. Arias in primary care for her chronic medical conditions. Patient denies chest pain, shortness of breath or recent hospitalizations. Denies problems with sedation in the past. PAST MEDICAL HISTORY PAST MEDICAL HISTORY Diagnosis Date Acid reflux Carotid stenosis RIGHT 20-39 % LEFT 0-19% per US 07/2015 Essential hypertension 03/09/2013 Gallstones 03/03/14 HTN (hypertension) Hyperlipidemia Mixed hyperlipidemia 03/22/2013 Obesity Tobacco use PAST SURGICAL HISTORY PAST SURGICAL HISTORY Procedure Laterality Date COLONOSCOPY FLX DX W/COLLJ SPEC WHEN PFRMD 10/28/2013 Colonoscopy COLONOSCOPY FLX DX W/COLLJ SPEC WHEN PFRMD 01/27/2017 Colonoscopy ENDOMETRIAL BX W/WO ENDOCERVIX BX W/O DILAT SPX 11/16/2007 Irregular menses/Menorrhagia ENDOMETRIAL BX W/WO ENDOCERVIX BX W/O DILAT SPX 03/13/2010 ERCP 2013 with stent ESOPHAGOGASTRODUODENOSCOPY TRANSORAL DIAGNOSTIC 05/05/2014 EGD ESOPHAGOGASTRODUODENOSCOPY TRANSORAL DIAGNOSTIC 09/14/2015 EGD HYSTEROSCOPY BX ENDOMETRIUM&/POLYPC W/WO D&C N/A 11/30/2020 resection of endometrial polyps LAPAROSCOPY SURG CHOLECYSTECTOMY 03/03/2014 PAST SURGICAL HISTORY OF 03/17/2007 Left knee surgery CURRENT MEDICATIONS Current Outpatient Medications Medication Sig cyanocobalamin (VITAMIN B-12) 1,000 mcg tab Take 1 tablet by mouth once daily. ergocalciferol 50,000 unit capsule (VITAMIN D2, DRISDOL) Take 1 capsule by mouth one time a week. pantoprazole DR (PROTONIX) 40 mg tablet Take 1 tablet by mouth twice daily. Take on empty stomach, 1/2 hr before meal. atorvastatin (LIPITOR) 20 mg tablet Take 1 tablet by mouth daily at bedtime. For cholesterol. cyclobenzaprine (FLEXERIL) 10 mg tablet Take 1 tablet by mouth three times daily as needed for muscle spasm. losartan (COZAAR) 100 mg tablet Take 1 tablet by mouth once daily. Current Facility-Administered Medications Medication Dose Route Frequency perflutren lipid microspheres 1.3 mL in NaCl (PF) 0.9% 10 mL injection (DEFINITY) INTRAVENOUS DIRECTED PRN sodium chloride 0.9 % (flush) 10 mL (BD POSIFLUSH) 10 mL INTRAVENOUS DIRECTED PRN ALLERGIES: Asa [Salicylates], Phenergan [Promethazine], Codeine, Hydrocodone, Ibuprofen, Lisinopril, and Oxycodone PERSONAL HISTORY: SOCIAL HISTORY Social History Tobacco Use Smoking status: Former Smoker Years: 25.00 Types: Cigarettes Start date: 03/18/2020 Smokeless tobacco: Never Used Substance Use Topics Alcohol use: No Drug use: No FAMILY HISTORY: FAMILY HISTORY FAMILY HISTORY Problem Relation Age of Onset Diabetes Mother Alcohol/Drug Daughter Diabetes Brother Diabetes Brother REVIEW OF SYMPTOMS: The review of systems data was entered by the nurse and reviewed by ak Nursing Notes: Ana Mejía 11/05/2021 9:12 AM Signed REVIEW OF SYSTEMS: General: The patient denies fatigue, denies weight loss, denies weight gain, denies feeling hot, and denies feelings of cold. Eyes: The patient denies glaucoma, denies eye injury/surgery, wears glasses or contacts. Ear/Nose/Throat: The patient denies allergies, denies hayfever, denies ear infections, and denies bloody noses. Cardiovascular: The patient denies chest pain, denies heart disease, NOTES high blood pressure,denies cardiac stent, denies prior heart attack, denies irregular heart beat, NOTES high cholesterol, denies poor circulation, denies heart failure, other cardiac issues, denies claudication, denies cold feet, denies peripheral arterial stent. Respiratory: The patient denies tuberculosis, denies pneumonia, denies frequent cough, denies pulmonary embolism, denies shortness of breath, and denies coughing up blood. Gastrointestinal: The patient denies difficulty swallowing, NOTES acid reflux, denies ulcers, denies vomiting, denies jaundice/hepatitis, denies gallbladder problems, denies black or tarry stools, denies hemorrhoids, denies bleeding from rectum, denies diverticulitis, denies constipation, denies diarrhea, denies loss of stool control, and denies hernias. Kidney/Bladder: The patient denies kidney stones, denies urine infections, and denies bloody urine. Skin: The patient denies a history of skin cancer, denies bleeding/changing moles, and denies a history of skin rash. Neurologic: The patient denies a history of epilepsy/convulsions, denies headaches, denies head/spinal injuries, and denies stroke/TIA. Psychiatric: The patient denies psychiatric medications, denies depression, and denies voices, denies substance abuse. Endocrine: The patient denies thyroid disorders, denies diabetes, and denies hormonal problems. Hematologic: The patient denies a history of bruising, denies bleeding, and denies anemia, denies blood clots. Infections: The patient NOTES a history of measles and mumps, denies rheumatic fever, and denies sexually transmitted diseases. Musculoskeletal: The patient denies back pain/injury, denies back problems, denies sciatica, denies knee/foot trouble, NOTES arthritis, or denies gout. When was patient's last Mammogram screening? 10/30/2021 Last Colonoscopy: 01/27/2017 Ana Mejía I have confirmed and edited as necessary, the PFSH and ROS obtained by others. Florencia Lew PA-C PHYSICAL EXAMINATION: General: The patient is 66 year old female, well nourished, well hydrated in no acute distress. The patient is oriented to time, place, and person. VITALS: Blood pressure 178/80, pulse 80, temperature 36.6 C (97.8 F), height 162.6 cm (5' 4 ), weight 100.7 kg (222 lb), last menstrual period 03/30/2010, SpO2 96 %. Body mass index is 38.11 kg/m . HEENT: Normal cephalic, ataumatic, pupils are equally round, sclera are anicteric, mucous membranes are moist, oropharynx is clear. Neck has no masses, asymmetry or lymphadenopathy. Respiratory: Clear to auscultation and percussion. Normal respiratory excursion and pattern. Cardiac: Examination is regular rate and rhythm. Normal S1/S2 Abdominal exam: Soft, nontender, with no palpable masses. No hepatosplenomegaly. No palpable hernias. Extremities: no clubbing, cyanosis or edema. No adenopathy. LABORATORY VALUES: As Noted RADIOLOGIC STUDIES: As Noted Assessment IMPRESSION: encounter for high-risk screening colonoscopy due to personal history of colon polyps PLAN: I have reviewed my findings with the surgeon. Will plan for lower endoscopy. We discussed the risks and benefits of the planned endoscopy. I have informed the patient that complications can occur including failure to complete the endoscopy and perforation. The patient had the opportunity to ask questions concerning the planned endoscopy. My staff has also explained the procedure to the patient in understandable terms and has given the patient printed material concerning the procedure. The patient freely consents to surgery. The patient was offered a surgery/procedure at a [facility] facility. I have counseled the patient regarding the risk of exposure to and/or potential harm posed by the COVID-19 virus with having a surgery/procedure at this time versus the risk of delaying the surgery/procedure. It is not possible to know either the risk of delaying the surgery or procedure or chance of getting an infection with perfect accuracy, but a joint decision was made between the patient and myself to proceed at this time with endoscopy. I plan to use Golytely bowel preparation Diagnoses: (Z12.11) Encounter for screening for malignant neoplasm of colon (primary encounter diagnosis) (D12.8) Tubular adenoma polyp of rectum Consultation requested by Prudencio Coelho PA-C for an opinion regarding history of colon polyps and need for surveillance colonoscopy. My final recommendations will be communicated back to the requesting physician by way of shared Medical record or letter to requesting physician via [place] mail. Florencia Lew PA-C documented in this encounter [facility] 01-10-2022 Miscellaneous Notes Spoke with patient. Given message from provider's office. Patient verbalizes understanding. Mehreen Veras RN Left message for patient to call office back Ju Rodriguez Ma Let patient know that her labs show mildly low potassium and mildly low Vit d. Continue the vit d supplement once a week. i'd like to have her try to increase potassium in diet. Recheck 2 weeks. Prudencio Coelho PA-C documented [facility] [facility] 01-08-2022 History of Presen t illness Narrative Chief Complaint Patient presents with: Recheck: blood pressure HPI Isabel Sahni is a 66 year old female who presents here today for recheck. Patient was seen approx 2 weeks ago due to elevated BP. We added HCTZ 12.5mg. Patient reports she does seem to be feeling better compared to a couple weeks ago. No more headaches or dizziness. Has had some leg cramps that occur intermittently over the past couple weeks. Reports seems to start in hips. Last 3 Encounter BP Readings: Date: BP: 01/08/2022 110/64[bp landen[ 12/25/2021 163/89[Average[ 12/24/2021 178/94 Past medical history, appointments, medications, allergies reviewed. Previous Medical History PAST MEDICAL HISTORY Diagnosis Date Acid reflux Carotid stenosis RIGHT 20-39 % LEFT 0-19% per US 07/2015 Elevated fasting glucose 10/02/2021 Essential hypertension 03/09/2013 Gallstones 03/03/14 HTN (hypertension) Hyperlipidemia Mixed hyperlipidemia 03/22/2013 Obesity Pancreatic cyst 11/09/2021 MRI 10/2021. Suspect IPMN. Consult to gastro placed. Tobacco use Previous Surgical History PAST SURGICAL HISTORY Procedure Laterality Date ABDOMINAL SURGERY HX COLONOSCOPY FLX DX W/COLLJ SPEC WHEN PFRMD 10/28/2013 Colonoscopy COLONOSCOPY FLX DX W/COLLJ SPEC WHEN PFRMD 01/27/2017 Colonoscopy ENDOMETRIAL BX W/WO ENDOCERVIX BX W/O DILAT SPX 11/16/2007 Irregular menses/Menorrhagia ENDOMETRIAL BX W/WO ENDOCERVIX BX W/O DILAT SPX 03/13/2010 ERCP 2013 with stent ESOPHAGOGASTRODUODENOSCOPY TRANSORAL DIAGNOSTIC 05/05/2014 EGD ESOPHAGOGASTRODUODENOSCOPY TRANSORAL DIAGNOSTIC 09/14/2015 EGD HYSTEROSCOPY BX ENDOMETRIUM&/POLYPC W/WO D&C N/A 11/30/2020 resection of endometrial polyps LAPAROSCOPY SURG CHOLECYSTECTOMY 03/03/2014 PAST SURGICAL HISTORY OF 03/17/2007 Left knee surgery TONSILLECTOMY HX Family History FAMILY HISTORY Problem Relation Age of Onset Diabetes Mother Alcohol/Drug Daughter Diabetes Brother Diabetes Brother Patient Allergies ALLERGIES Allergen Reactions Asa [Salicylates] Hives Phenergan [Prometha* Itching suppositiries Codeine Intolerance Hydrocodone Cough, Vomiting, Shortness of Breath Ibuprofen Intolerance, GI Upset Lisinopril Cough Oxycodone GI Upset, Anaphylaxis, Other: See Comments Body aches. Hot flashes Current Medications Current Outpatient Medications on File Prior to Visit Medication Sig hydroCHLOROthiazide (HYDRODIURIL, ESIDRIX) 12.5 mg capsule Take 1 capsule by mouth once daily. cyanocobalamin (VITAMIN B-12) 1,000 mcg tab Take 1 tablet by mouth once daily. ergocalciferol 50,000 unit capsule (VITAMIN D2, DRISDOL) Take 1 capsule by mouth one time a week. pantoprazole DR (PROTONIX) 40 mg tablet Take 1 tablet by mouth twice daily. Take on empty stomach, 1/2 hr before meal. atorvastatin (LIPITOR) 20 mg tablet Take 1 tablet by mouth daily at bedtime. For cholesterol. losartan (COZAAR) 100 mg tablet Take 1 tablet by mouth once daily. Current Facility-Administered Medications on File Prior to Visit Medication perflutren lipid microspheres 1.3 mL in NaCl (PF) 0.9% 10 mL injection (DEFINITY) sodium chloride 0.9 % (flush) 10 mL (BD POSIFLUSH) Social History Social History Tobacco Use Smoking status: Former Smoker Years: 25.00 Types: Cigarettes Start date: 03/18/2020 Smokeless tobacco: Never Used Substance Use Topics Alcohol use: No Drug use: No Review of Symptoms REVIEW OF SYSTEMS see hpi EXAM: BP 110/64 (BP Site: Left Arm, BP Position: Sitting, BP Cuff Size: Extra Large Adult) Pulse 68 Temp 36.8 C (98.3 F) Resp 18 Wt 99.3 kg (219 lb) LMP 03/30/2010 BMI 37.59 kg/m General Appearance: Well appearing, alert, in no acute distress, well-hydrated, well nourished.. Neck: Supple, no adenopathy; thyroid symmetric, normal size, no bruits. Lungs: Lungs clear to auscultation. No wheezing, rhonchi, rales.. Heart: RRR without murmur, gallop, or rubs. No ectopy. Extremities: No deformities, edema, skin discoloration, clubbing or cyanosis. Good capillary refill. . Peripheral Pulses: Normal. Health Maintenance List BP CONTROLLED (<130/80) Never done SHINGRIX VACCINE(1 of 2) Never done DEPRESSION SCREENING due on 01/31/2017 HEPATITIS C SCREENING due on 10/01/2022 HIV SCREENING due on 10/01/2022 INFLUENZA(Season Ended) due on 03/14/2022 MAMMOGRAM due on 10/29/2022 ANNUAL PCP TEAM CHRONIC DISEASE VISIT due on 12/25/2022 DIABETES SCREEN due on 10/08/2024 COLORECTAL CANCER SCREENING due on 12/24/2024 PAP TESTING due on 10/24/2025 HPV TESTING due on 10/24/2025 LIPID SCREEN due on 10/01/2026 DTAP,TDAP,TD(2 - Td or Tdap) due on 10/02/2031 COVID-19 VACCINE Completed Data reviewed ASSESSMENT/PLAN: 1. Essential hypertension - ICD9: 401.9, ICD10: I10 (primary diagnosis) - good control - Continue current medication(s) - Recommended regular aerobic exercise. - Recommend home blood pressure monitoring, to bring results in on next visit - Goal of BP <130/80 - COMP METABOLIC PANEL - MAGNESIUM BLD 2. Leg cramping - ICD9: 729.82, ICD10: R25.2 Advise good hydration. Check: - COMP METABOLIC PANEL - MAGNESIUM BLD 3. Vitamin D deficiency - ICD9: 268.9, ICD10: E55.9 - VITAMIN D 25 HYDROXY 4. Elevated vitamin B12 level - ICD9: 790.99, ICD10: R74.8 - VITAMIN B12 BLOOD 5. Screening for colon cancer - ICD9: V76.51, ICD10: Z12.11 Return for repeat c-scope - CONSULT TO GENERAL SURGERY 6. Mixed hyperlipidemia - ICD9: 272.2, ICD10: E78.2 - ATORVASTATIN 20 MG TABLET F/u as scheduled. Return for repeat c-scope. Prudencio Coelho PA-C documented in this encounter [facility] 01-02-2022 Miscellaneous Notes Medications reviewed and patient is taking medications as ordered. Jane Enciso RN Left a message for pt to call back and ask to speak to a nurse. Review the medications she has at home against her med list in Epic. Heena Goss LPN Phone call placed x 2 brief message left on patients identified voicemail. Korina Goss LPN Spoke with pt's . He states pt has been trying to return call but can't get a hold of anyone. 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 Advised him to have pt ask to speak with a nurse. verbalizes understanding. Altaf Bean LPN Left additional message for pt to contact office. Altaf Bean LPN Left message for pt to contact office. Altaf Bean LPN Patient was seen today and theres a concern she may be missing a medication. Please Ask patient to read to you all the medications she has at home. documented in this encounter [facility] 12-25-2021 Miscellaneous Notes Pt was seen in office today. Altaf Bean LPN Called and left a detailed voicemail notifying patient of providers message. Hospital phone number was left so patient could call back and schedule an appointment. Florencia Johnston RN Needs an appointment. Her last BP check within [facility] was 124/81. Prudencio Coelho PA-C Received a call from Dr. Palmer's office today. Patient was scheduled for a colonoscopy. Patient's BP reading were 192/97- 181/93 upon arrival. Patient was not sure if she had taken her BP medication's. They did proceed with the procedure, however during the patient's BP went as high as 226/159 and finally at 226/119 they stopped the procedure and aborted. She is currently in recovery and bp is down to 150/[address] Palmer wants the BP addressed before rescheduling. Patient needs scheduled for follow up on BP. Sophia Man MA documented in this encounter [facility] 12-25-2021 Instructions Prudencio Coelho PA-C - 12/25/2021 10:49 AM EDT Follow up in 2 weeks for repeat BP check. Bring in all the medications that you are taking. I added HCTZ 12.5mg once a day. Continue losartan. Check your meds and see if you have b12 supplement. If not may need to check with pharmacy to see if it's there or if insurance doesn't cover it. May need to buy OTC. Prudencio Coelho PA-C documented in this encounter [facility] 12-25-2021 History of Presen t illness Narrative Chief Complaint Patient presents with: Hypertension HPI Isabel Sahni is a 66 year old female who presents here today for Chronic Medical Conditions.. Patient was getting a colonoscopy and her BP increased up into the 200s/100s. She doesn't check her BP at home. At her last visit with us, we increased losartan to 100mg and her f/u bp check was then normal. However since then she continues to show elevated readings at her visits. She states she takes all her medications but stopped one due to not at the pharmacy. She thinks it was one of the vitamins. Last 6 Encounter BP Readings: Date: BP: 12/25/2021 163/89[Average[ 12/24/2021 178/94 12/06/2021 144/82 11/05/2021 178/80 10/22/2021 124/81[BP Landen average[ 10/01/2021 174/89 Past medical history, appointments, medications, allergies reviewed. Previous Medical History PAST MEDICAL HISTORY Diagnosis Date Acid reflux Carotid stenosis RIGHT 20-39 % LEFT 0-19% per US 07/2015 Elevated fasting glucose 10/02/2021 Essential hypertension 03/09/2013 Gallstones 03/03/14 HTN (hypertension) Hyperlipidemia Mixed hyperlipidemia 03/22/2013 Obesity Pancreatic cyst 11/09/2021 MRI 10/2021. Suspect IPMN. Consult to gastro placed. Tobacco use Previous Surgical History PAST SURGICAL HISTORY Procedure Laterality Date ABDOMINAL SURGERY HX COLONOSCOPY FLX DX W/COLLJ SPEC WHEN PFRMD 10/28/2013 Colonoscopy COLONOSCOPY FLX DX W/COLLJ SPEC WHEN PFRMD 01/27/2017 Colonoscopy ENDOMETRIAL BX W/WO ENDOCERVIX BX W/O DILAT SPX 11/16/2007 Irregular menses/Menorrhagia ENDOMETRIAL BX W/WO ENDOCERVIX BX W/O DILAT SPX 03/13/2010 ERCP 2013 with stent ESOPHAGOGASTRODUODENOSCOPY TRANSORAL DIAGNOSTIC 05/05/2014 EGD ESOPHAGOGASTRODUODENOSCOPY TRANSORAL DIAGNOSTIC 09/14/2015 EGD HYSTEROSCOPY BX ENDOMETRIUM&/POLYPC W/WO D&C N/A 11/30/2020 resection of endometrial polyps LAPAROSCOPY SURG CHOLECYSTECTOMY 03/03/2014 PAST SURGICAL HISTORY OF 03/17/2007 Left knee surgery TONSILLECTOMY HX Family History FAMILY HISTORY Problem Relation Age of Onset Diabetes Mother Alcohol/Drug Daughter Diabetes Brother Diabetes Brother Patient Allergies ALLERGIES Allergen Reactions Asa [Salicylates] Hives Phenergan [Prometha* Itching suppositiries Codeine Intolerance Hydrocodone Cough, Vomiting, Shortness of Breath Ibuprofen Intolerance, GI Upset Lisinopril Cough Oxycodone GI Upset, Anaphylaxis, Other: See Comments Body aches. Hot flashes Current Medications Current Outpatient Medications on File Prior to Visit Medication Sig cyanocobalamin (VITAMIN B-12) 1,000 mcg tab Take 1 tablet by mouth once daily. ergocalciferol 50,000 unit capsule (VITAMIN D2, DRISDOL) Take 1 capsule by mouth one time a week. pantoprazole DR (PROTONIX) 40 mg tablet Take 1 tablet by mouth twice daily. Take on empty stomach, 1/2 hr before meal. atorvastatin (LIPITOR) 20 mg tablet Take 1 tablet by mouth daily at bedtime. For cholesterol. cyclobenzaprine (FLEXERIL) 10 mg tablet Take 1 tablet by mouth three times daily as needed for muscle spasm. losartan (COZAAR) 100 mg tablet Take 1 tablet by mouth once daily. Current Facility-Administered Medications on File Prior to Visit Medication perflutren lipid microspheres 1.3 mL in NaCl (PF) 0.9% 10 mL injection (DEFINITY) sodium chloride 0.9 % (flush) 10 mL (BD POSIFLUSH) Social History Social History Tobacco Use Smoking status: Former Smoker Years: 25.00 Types: Cigarettes Start date: 03/18/2020 Smokeless tobacco: Never Used Substance Use Topics Alcohol use: No Drug use: No Review of Symptoms REVIEW OF SYSTEMS see hpi EXAM: BP 163/89 Pulse 70 Temp 36.7 C (98 F) (Tympanic) Resp 18 Wt 98.9 kg (218 lb) LMP 03/30/2010 SpO2 98% BMI 37.42 kg/m General Appearance: Well appearing, alert, in no acute distress, well-hydrated, well nourished.. Lungs: Lungs clear to auscultation. No wheezing, rhonchi, rales.. Heart: RRR without murmur, gallop, or rubs. No ectopy. Health Maintenance List BP CONTROLLED (<130/80) Never done SHINGRIX VACCINE(1 of 2) Never done DEPRESSION SCREENING due on 01/31/2017 HEPATITIS C SCREENING due on 10/01/2022 HIV SCREENING due on 10/01/2022 INFLUENZA(Season Ended) due on 03/14/2022 ANNUAL PCP TEAM CHRONIC DISEASE VISIT due on 10/01/2022 MAMMOGRAM due on 10/29/2022 DIABETES SCREEN due on 10/08/2024 COLORECTAL CANCER SCREENING due on 12/24/2024 PAP TESTING due on 10/24/2025 HPV TESTING due on 10/24/2025 LIPID SCREEN due on 10/01/2026 DTAP,TDAP,TD(2 - Td or Tdap) due on 10/02/2031 COVID-19 VACCINE Completed Data reviewed ASSESSMENT/PLAN: 1. Hypertension, essential - ICD9: 401.9, ICD10: I10 (primary diagnosis) - poor control - Continue current medication(s) - Add HCTZ - Recommended regular aerobic exercise. - Recommend home blood pressure monitoring, to bring results in on next visit - Goal of BP <130/80 Patient to f/u in 2 weeks with her medication bottles as well. 2. Pancreatic cyst - ICD9: 577.2, ICD10: K86.2 Continue with gasto. Prudencio Coelho PA-C documented in this encounter [facility] 12-25-2021 Nurse Note BP AVERAGE 1. 170/89 2. 156/82 69 3. 160/80 71 4. 174/121 72 5. 162.84 71 6. 154/78 69 Average 163/89 70 documented in this encounter [facility] 12-24-2021 Nurse Note Patient returned to restroom after dressing, able to pass more air, reports soreness in abdomen is down to a 3 on pain scale. Patient returned from restroom, reports she passed some air, pain is a 4 on pain scale, pain is mid lower abdomen, still decribes as sore. No nausea. Ambulates back to cot. Sitting on side of cot, given crackers and juice to drink. sitting with patient at bedside. Patient reports her left lower abdomen has 'soreness' is a 6 on pain scale, will ambulate to restroom to try to release air. Phone call to Dr Arias's office, spoke to Sophia and notified of pre procedure bp and bp's during procedure, Dr Palmer unable to complete colonoscopy today. Dr Arias is out the of office today, he returns to office tomorrow, she will give him the message, and call patient today to schedule an appointment to review bp and that colonscopy can not be rescheduled until bp is addressed. Patient received in PACU on left side, eyes closed, arouses to verbal stimuli, abdomen is soft, denies pain or nausea at this time. The procedure was unable to be completed due to high bp in procedure room. Dr Palmer requested PCP be notified of high bp and will not be able to reschedule procedure until bp issue is addressed. Dr Palmer spoke to in consult room after patient in PACU. documented in this encounter [facility] 12-24-2021 History and physical note Images from the original note were not included. HISTORY AND PHYSICAL Isabel Sahni 1955 REFERRING PHYSICIAN: Prudencio Coelho PA-C CHIEF COMPLAINT: Consult (Colonoscopy) HPI: The patient is a 66 year old female referred for surveillance endoscopy due to personal history of colon polyps. Isabel notes no colon complaints. Patient denies any change in bowel habits, weight changes, blood in stools, black tarry stools or abdominal pain. Denies family history of colon issues. The patient notes no upper GI complaints. Isabel has undergone prior endoscopy. Most recent colonoscopy 01/27/[address] Gonzalez with removal of a large adenomatous cecal polyp, 3 year follow-up recommended. Patient's past medical history is significant for hypertension, hyperlipidemia, carotid stenosis. Patient follows with Dr. Arias in primary care for her chronic medical conditions. Patient denies chest pain, shortness of breath or recent hospitalizations. Denies problems with sedation in the past. PAST MEDICAL HISTORY PAST MEDICAL HISTORY Diagnosis Date Acid reflux Carotid stenosis RIGHT 20-39 % LEFT 0-19% per US 07/2015 Essential hypertension 03/09/2013 Gallstones 03/03/14 HTN (hypertension) Hyperlipidemia Mixed hyperlipidemia 03/22/2013 Obesity Tobacco use PAST SURGICAL HISTORY PAST SURGICAL HISTORY Procedure Laterality Date COLONOSCOPY FLX DX W/COLLJ SPEC WHEN PFRMD 10/28/2013 Colonoscopy COLONOSCOPY FLX DX W/COLLJ SPEC WHEN PFRMD 01/27/2017 Colonoscopy ENDOMETRIAL BX W/WO ENDOCERVIX BX W/O DILAT SPX 11/16/2007 Irregular menses/Menorrhagia ENDOMETRIAL BX W/WO ENDOCERVIX BX W/O DILAT SPX 03/13/2010 ERCP 2013 with stent ESOPHAGOGASTRODUODENOSCOPY TRANSORAL DIAGNOSTIC 05/05/2014 EGD ESOPHAGOGASTRODUODENOSCOPY TRANSORAL DIAGNOSTIC 09/14/2015 EGD HYSTEROSCOPY BX ENDOMETRIUM&/POLYPC W/WO D&C N/A 11/30/2020 resection of endometrial polyps LAPAROSCOPY SURG CHOLECYSTECTOMY 03/03/2014 PAST SURGICAL HISTORY OF 03/17/2007 Left knee surgery CURRENT MEDICATIONS Current Outpatient Medications Medication Sig cyanocobalamin (VITAMIN B-12) 1,000 mcg tab Take 1 tablet by mouth once daily. ergocalciferol 50,000 unit capsule (VITAMIN D2, DRISDOL) Take 1 capsule by mouth one time a week. pantoprazole DR (PROTONIX) 40 mg tablet Take 1 tablet by mouth twice daily. Take on empty stomach, 1/2 hr before meal. atorvastatin (LIPITOR) 20 mg tablet Take 1 tablet by mouth daily at bedtime. For cholesterol. cyclobenzaprine (FLEXERIL) 10 mg tablet Take 1 tablet by mouth three times daily as needed for muscle spasm. losartan (COZAAR) 100 mg tablet Take 1 tablet by mouth once daily. Current Facility-Administered Medications Medication Dose Route Frequency perflutren lipid microspheres 1.3 mL in NaCl (PF) 0.9% 10 mL injection (DEFINITY) INTRAVENOUS DIRECTED PRN sodium chloride 0.9 % (flush) 10 mL (BD POSIFLUSH) 10 mL INTRAVENOUS DIRECTED PRN ALLERGIES: Asa [Salicylates], Phenergan [Promethazine], Codeine, Hydrocodone, Ibuprofen, Lisinopril, and Oxycodone PERSONAL HISTORY: SOCIAL HISTORY Social History Tobacco Use Smoking status: Former Smoker Years: 25.00 Types: Cigarettes Start date: 03/18/2020 Smokeless tobacco: Never Used Substance Use Topics Alcohol use: No Drug use: No FAMILY HISTORY: FAMILY HISTORY FAMILY HISTORY Problem Relation Age of Onset Diabetes Mother Alcohol/Drug Daughter Diabetes Brother Diabetes Brother REVIEW OF SYMPTOMS: The review of systems data was entered by the nurse and reviewed by ak Nursing Notes: Ana Mejía 11/05/2021 9:12 AM Signed REVIEW OF SYSTEMS: General: The patient denies fatigue, denies weight loss, denies weight gain, denies feeling hot, and denies feelings of cold. Eyes: The patient denies glaucoma, denies eye injury/surgery, wears glasses or contacts. Ear/Nose/Throat: The patient denies allergies, denies hayfever, denies ear infections, and denies bloody noses. Cardiovascular: The patient denies chest pain, denies heart disease, NOTES high blood pressure,denies cardiac stent, denies prior heart attack, denies irregular heart beat, NOTES high cholesterol, denies poor circulation, denies heart failure, other cardiac issues, denies claudication, denies cold feet, denies peripheral arterial stent. Respiratory: The patient denies tuberculosis, denies pneumonia, denies frequent cough, denies pulmonary embolism, denies shortness of breath, and denies coughing up blood. Gastrointestinal: The patient denies difficulty swallowing, NOTES acid reflux, denies ulcers, denies vomiting, denies jaundice/hepatitis, denies gallbladder problems, denies black or tarry stools, denies hemorrhoids, denies bleeding from rectum, denies diverticulitis, denies constipation, denies diarrhea, denies loss of stool control, and denies hernias. Kidney/Bladder: The patient denies kidney stones, denies urine infections, and denies bloody urine. Skin: The patient denies a history of skin cancer, denies bleeding/changing moles, and denies a history of skin rash. Neurologic: The patient denies a history of epilepsy/convulsions, denies headaches, denies head/spinal injuries, and denies stroke/TIA. Psychiatric: The patient denies psychiatric medications, denies depression, and denies voices, denies substance abuse. Endocrine: The patient denies thyroid disorders, denies diabetes, and denies hormonal problems. Hematologic: The patient denies a history of bruising, denies bleeding, and denies anemia, denies blood clots. Infections: The patient NOTES a history of measles and mumps, denies rheumatic fever, and denies sexually transmitted diseases. Musculoskeletal: The patient denies back pain/injury, denies back problems, denies sciatica, denies knee/foot trouble, NOTES arthritis, or denies gout. When was patient's last Mammogram screening? 10/30/2021 Last Colonoscopy: 01/27/2017 Ana Mejía I have confirmed and edited as necessary, the PFSH and ROS obtained by others. Florencia Lew PA-C PHYSICAL EXAMINATION: General: The patient is 66 year old female, well nourished, well hydrated in no acute distress. The patient is oriented to time, place, and person. VITALS: Blood pressure 178/80, pulse 80, temperature 36.6 C (97.8 F), height 162.6 cm (5' 4 ), weight 100.7 kg (222 lb), last menstrual period 03/30/2010, SpO2 96 %. Body mass index is 38.11 kg/m . HEENT: Normal cephalic, ataumatic, pupils are equally round, sclera are anicteric, mucous membranes are moist, oropharynx is clear. Neck has no masses, asymmetry or lymphadenopathy. Respiratory: Clear to auscultation and percussion. Normal respiratory excursion and pattern. Cardiac: Examination is regular rate and rhythm. Normal S1/S2 Abdominal exam: Soft, nontender, with no palpable masses. No hepatosplenomegaly. No palpable hernias. Extremities: no clubbing, cyanosis or edema. No adenopathy. LABORATORY VALUES: As Noted RADIOLOGIC STUDIES: As Noted Assessment IMPRESSION: encounter for high-risk screening colonoscopy due to personal history of colon polyps PLAN: I have reviewed my findings with the surgeon. Will plan for lower endoscopy. We discussed the risks and benefits of the planned endoscopy. I have informed the patient that complications can occur including failure to complete the endoscopy and perforation. The patient had the opportunity to ask questions concerning the planned endoscopy. My staff has also explained the procedure to the patient in understandable terms and has given the patient printed material concerning the procedure. The patient freely consents to surgery. The patient was offered a surgery/procedure at a [facility] facility. I have counseled the patient regarding the risk of exposure to and/or potential harm posed by the COVID-19 virus with having a surgery/procedure at this time versus the risk of delaying the surgery/procedure. It is not possible to know either the risk of delaying the surgery or procedure or chance of getting an infection with perfect accuracy, but a joint decision was made between the patient and myself to proceed at this time with endoscopy. I plan to use Golytely bowel preparation Diagnoses: (Z12.11) Encounter for screening for malignant neoplasm of colon (primary encounter diagnosis) (D12.8) Tubular adenoma polyp of rectum Consultation requested by Prudencio Coelho PA-C for an opinion regarding history of colon polyps and need for surveillance colonoscopy. My final recommendations will be communicated back to the requesting physician by way of shared Medical record or letter to requesting physician via US mail. Florencia Lew PA-C UPDATED HISTORY AND PHYSICAL EXAMINATION SERVICE DATE: 12/24/2021 SERVICE TIME: 9:22 AM PHYSICAL EXAM MUST BE COMPLETED ON ADMISSION The History and Physical (completed in the past 30 days) has been reviewed and the patient has been examined. The contents accurately reflect the patient's condition with the following additions or revisions since the H&P was completed. Examination indicates no changes. This H&P can be found in the attached. SIGNATURE: David Palmer III, MD PATIENT NAME: Isabel Sahni DATE: December 24, 2021 TIME: 9:22 AM documented in this encounter [facility] 12-07-2021 Miscellaneous Notes Phone call placed brief message to contact a nurse. Korina Goss LPN ----- Message from Crys Leary APRN.[email or web address] sent at 12/07/2021 7:14 AM EDT ----- Please notify patient of negative COVID test. documented in this encounter [facility] 12-07-2021 Miscellaneous Notes VM left with results, phone number left to call back with any questions. Mireya Baltazar MA Negative for covid please notify thank you documented in this encounter [facility] 12-06-2021 History of Presen t illness Narrative Patient presents with: Cough: Pt denied chest pain, SOB reported Manley, sore throat pain rated 7, x1 week HPI: Feeling sick for 5 days. Positive symptoms: Cough, Sore throat, Headache, Nasal Congestion, Rhinorrhea, Body Aches, Negative symptoms: Shortness of breath, Chest pain, Nausea, Vomiting, Diarrhea, OTC: Nyquil Completed fourth dose of [employer] COVID-19 vaccine in October. PAST MEDICAL HISTORY Diagnosis Date Acid reflux Carotid stenosis RIGHT 20-39 % LEFT 0-19% per US 07/2015 Elevated fasting glucose 10/02/2021 Essential hypertension 03/09/2013 Gallstones 03/03/14 HTN (hypertension) Hyperlipidemia Mixed hyperlipidemia 03/22/2013 Obesity Pancreatic cyst 11/09/2021 MRI 10/2021. Suspect IPMN. Consult to gastro placed. Tobacco use MEDICATIONS: Current Outpatient Medications Medication Sig cyanocobalamin (VITAMIN B-12) 1,000 mcg tab Take 1 tablet by mouth once daily. ergocalciferol 50,000 unit capsule (VITAMIN D2, DRISDOL) Take 1 capsule by mouth one time a week. pantoprazole DR (PROTONIX) 40 mg tablet Take 1 tablet by mouth twice daily. Take on empty stomach, 1/2 hr before meal. atorvastatin (LIPITOR) 20 mg tablet Take 1 tablet by mouth daily at bedtime. For cholesterol. cyclobenzaprine (FLEXERIL) 10 mg tablet Take 1 tablet by mouth three times daily as needed for muscle spasm. losartan (COZAAR) 100 mg tablet Take 1 tablet by mouth once daily. Current Facility-Administered Medications Medication Dose Route Frequency perflutren lipid microspheres 1.3 mL in NaCl (PF) 0.9% 10 mL injection (DEFINITY) INTRAVENOUS DIRECTED PRN sodium chloride 0.9 % (flush) 10 mL (BD POSIFLUSH) 10 mL INTRAVENOUS DIRECTED PRN ALLERGIES: ALLERGIES Allergen Reactions Asa [Salicylates] Hives Phenergan [Prometha* Itching suppositiries Codeine Intolerance Hydrocodone Cough, Vomiting, Shortness of Breath Ibuprofen Intolerance, GI Upset Lisinopril Cough Oxycodone GI Upset, Anaphylaxis, Other: See Comments Body aches. Hot flashes VITALS: BP 144/82 Pulse 77 Temp 36.6 C (97.8 F) Resp 16 Wt 100.6 kg (221 lb 12.8 oz) LMP 03/30/2010 SpO2 97% BMI 38.07 kg/m PHYSICAL EXAM: GEN: mildly ill appearing HEENT: PERRL, EOMI, conjunctiva clear Ears: sheets of cerumen in the right ear. TMs without erythema or effusion. Left TM remote scars. Sinuses: pressure over sinuses Throat: moist mucous membranes, mild erythema, no exudate Neck: supple, no thyromegaly, no lymphadenopathy HEART: regular rate and rhythm, no murmurs LUNGS: clear to auscultation, no wheezes or crackles, no increased WOB ASSESSMENT/PLAN: 1. URI, acute - ICD9: 465.9, ICD10: J06.9 - suspect viral URI, differential includes COVID-19. - Discussed supportive care treatment with home isolation (wear mask 5 days after today if COVID positive), rest, cold medicine, and analgesia. - Red flags to seek further treatment include chest pain, shortness of breath, and lethargy; in the ER if severe. - 2019 CORONAVIRUS Requests Rx for cough- BENZONATATE 100 MG CAPSULE Hal Desai MD documented in this encounter [facility] 11-09-2021 Miscellaneous Notes Patient returned call and given provider's message below and patient verbalized understanding. Sivakumar Enciso RN Left additional message for pt to contact office. Altaf Bean LPN Left message for patient to call office back Ju Rodriguez Ma Let patient know that MRI shows a cystic mass on the Pancrease. This is likely benign and they recommend just a repeat in 1 year. However I prefer patient's to see gastro for this to monitor. I will put in consult. documented in this encounter [facility] 11-07-2021 History of Presen t illness Narrative Radiology Service Progress Note DATE OF SERVICE: November 07, 2021 TIME: 2:39 PM PATIENT IDENTITY VERIFICATION COMPLETED USING TWO (2) STANDARD IDENTIFIERS: Name and Date of confirmed by patient verbally. FALL SCREENING: Has the patient had 2 falls in the last year or 1 fall with injury or currently using an Ambulatory Assistive Device (Walker, Cane, Wheelchair, Crutches, etc.)? No PATIENT GENDER DATA: Female. status: : No status: NO. PATIENT RELEVANT IMPLANT DATA REVIEWED: Yes ALLERGIES: Reviewed and unchanged CONTRAST ALLERGY: NO. EXAM: MRI - CONTRAST TYPE: GROUP II PERIPHERAL IV DATA: Ambulatory: A peripheral IV was started in the Left wrist with a Angio cath: 22 gauge. RADIOLOGY DEPARTMENT: MR; Exam(s) Completed: Body: Pancreas/Biliary SIGNATURE: RT Iqra(R) PATIENT NAME: Isabel Sahni DATE: November 07, 2021 TIME: 2:39 PM documented in this encounter [facility] 11-05-2021 Miscellaneous Notes COLON ASC documented in this encounter [facility] 10-30-2021 Miscellaneous Notes Left message of same on pt's identified vm. Altaf Bean LPN ----- Message from Prudencio Coelho PA-C sent at 10/30/2021 8:55 AM EDT ----- Normal mammogram. Repeat in 1 year. documented in this encounter [facility] 10-30-2021 Miscellaneous Notes October 30, 2021 PID: [id number] Isabel Sahni [address] [place] [id number] Dear Ms. Sahni, We are pleased to inform you that the results of your recent breast imaging exam on 10/29/2021 are normal. Early detection of cancer is very important. We also understand recommendations regarding breast cancer screening are controversial. Please discuss with your primary care provider which strategy is best for you and whether a mammogram is right for you. Your imaging studies and report will be kept on file at [facility] as part of your permanent medical record and are available for your continuing care. Thank you for allowing us to help in meeting your health care needs. Sincerely, Dr. Baptiste Interpreting Radiologist [facility] (Normal over 40) documented in this encounter [facility] 10-29-2021 History of Presen t illness Narrative Radiology Service Progress Note PATIENT NAME: Isabel Sahni DATE OF SERVICE: October 29, 2021 TIME: 1:46 PM PATIENT IDENTITY VERIFICATION COMPLETED USING TWO (2) IDENTIFIERS: Name and Date of confirmed by patient verbally. FALL SCREENING: Has the patient had 2 falls in the last year or 1 fall with injury or currently using an Ambulatory Assistive Device (Walker, Cane, Wheelchair, Crutches, etc.)? No PATIENT GENDER DATA: Female. status: : No status: NO. PATIENT RELEVANT IMPLANT DATA REVIEWED: Not Applicable RADIOLOGY DEPARTMENT: Mammography PERIPHERAL IV DATA: Not applicable SIGNED BY: Carla Chao October 29, 2021 1:46 PM documented in this encounter [facility] 10-23-2021 Miscellaneous Notes I am cancelling MRI of Liver. Only MRI Panc/Christos wo/w contrast is needed. Prudencio Coelho PA-C documented in this encounter [facility] 10-22-2021 Miscellaneous Notes BP good. No changes needed. Manual Readin/86 Pulse: 74 BP Landen average: 124/81 P: 74 Repeat BP Check: 120/81 P70 #1 135/85 P73 #2 119/79 P73 #3 127/81 P76 #4 122/78 P76 #5 122/81 P76 #6 Reason for blood pressure check - Last BP elevated and Medication adjustment Patient is: Taking medication as prescribed Yes Took medication today Yes If no, date medication last taken N/A Experiencing side effects No BP was elevated at last appt 10/01/21. Losartan was increased to 100mg daily. Tolerating medication change well. Denies any chest pain, shortness of breath, dizziness, or headaches. Daily caffeine use. Past personal history of tobacco use; no current exposure. Alert and oriented. Pt has been identified by name and birthdate: Yes Allergies reviewed: Yes Latex allergy: no. Medication - prescribed and OTC reviewed and updated: Yes Do you need any prescription refills prior to your next visit: No Health Maintenance: Reviewed and not up to date and provider notified Patient advised to continue with current medications and would be contacted if any further instructions after review by PCP. Rosie Trejo LPN documented in this encounter [facility] 10-22-2021 History of Presen t illness Narrative Manual Readin/86 Pulse: 74 BP Landen average: 124/81 P: 74 Repeat BP Check: 120/81 P70 #1 135/85 P73 #2 119/79 P73 #3 127/81 P76 #4 122/78 P76 #5 122/81 P76 #6 Reason for blood pressure check - Last BP elevated and Medication adjustment Patient is: Taking medication as prescribed Yes Took medication today Yes If no, date medication last taken N/A Experiencing side effects No BP was elevated at last appt 10/01/21. Losartan was increased to 100mg daily. Tolerating medication change well. Denies any chest pain, shortness of breath, dizziness, or headaches. Daily caffeine use. Past personal history of tobacco use; no current exposure. Alert and oriented. Pt has been identified by name and birthdate: Yes Allergies reviewed: Yes Latex allergy: no. Medication - prescribed and OTC reviewed and updated: Yes Do you need any prescription refills prior to your next visit: No Health Maintenance: Reviewed and not up to date and provider notified Patient advised to continue with current medications and would be contacted if any further instructions after review by PCP. Rosie Trejo LPN documented in this encounter [facility] 10-16-2021 Note HNO ID: [id number] Author: Geraldine Okeefe MD Service: ? Author Type: Physician Type: Progress Notes Filed: 10/16/2021 11:10 AM Note Text: Dear Prudencio I suggest obtaining the following tests: AMA panel with titer and MRI liver and pancreas with contrast You may share results with me if abnormal Thank you for your referral. Please feel free to contact me if I can be of further assistance to you Sincerely Geraldine Stearns MD [facility] 10-16-2021 Miscellaneous Notes Pt returned call & was notified of results & providers message. Pt was transferred to chief order dispatcher to schedule MRI & lab test. Patricia Rasheed LPN Let patient know of below results. Then let her know that I received recommendations from gastro and I am going to put in a MRI order and an additional lab for her to do. Thanks. Prudencio Coelho PA-C Left message for pt to contact office. Altaf Bean LPN Let patient know that her US shows fatty liver. i'm going to put in a e-consult to gastro to see if they have further recommendations. If she hasn't heard from us in 1 week, please ask her to contact me. Prudencio Coelho PA-C documented in this encounter [facility] 10-16-2021 History of Presen t illness Narrative Dear Prudencio I suggest obtaining the following tests: AMA panel with titer and MRI liver and pancreas with contrast You may share results with me if abnormal Thank you for your referral. Please feel free to contact me if I can be of further assistance to you Sincerely Geraldine Stearns MD documented in this encounter [facility] 10-11-2021 Miscellaneous Notes Patient returned call and given provider's message below with verbalized understanding. Transferred to pss. Patient agreeable to call Dr. Corona office to schedule appt. Left message for pt to contact office. See Prudencio's message below. Referral and info has been faxed to Dr Corona's office. Altaf Bean LPN Left vm for patient to call office back Ju Rodriguez Ma Liver fraction of alk phos is elevated as is GGT. Will put in consult to gastro (dr. Corona) and set up for US of liver. Prudencio Coelho PA-C documented in this encounter [facility] 10-03-2021 Miscellaneous Notes Spoke with patient. Given message from provider's office. Patient verbalizes understanding. Mehreen Veras RN Left message for pt to contact office. Altaf Bean LPN Let patient know that her alk phos level was high. Need additional labs completed. Would like them fasting. Vit b12 level is low. Will have her start b12 supplement. a1c is 6.1% which is prediabetes. Normal is under 5.7 and diabetes is over 6.5. Need to work on decreasing carbs/sugars. I'm waiting on vit d level still slightly low but better. Will continue the once weekly vitamin. Prescription sent Prudencio Coelho PA-C documented in this encounter [facility] 10-01-2021 History of Presen t illness Narrative Chief Complaint Patient presents with: Physical HPI Isabel Sahni is a 66 year old female who presents here today for physical. Patient with hx of HTN, HLP, carotid stenosisi, reflux, former smoker and those as reviewed below. Patient reports left back pain today. States that she picked up a heavy box at work and then later that day she noted some back spasms. No n/t Has some sinus drainage for a few days. She also gets dilan horses in her legs. Has been going on for about 2 months now. Near nightly. Once she walks around, they improve and then don't bug her again. She doesn't check her BP at home. Last 3 Encounter BP Readings: Date: BP: 10/01/2021 180/100 09/11/2021 122/82 02/05/2021 140/84 Past medical history, appointments, medications, allergies reviewed. Previous Medical History PAST MEDICAL HISTORY Diagnosis Date Acid reflux Carotid stenosis RIGHT 20-39 % LEFT 0-19% per US 07/2015 Essential hypertension 03/09/2013 Gallstones 03/03/14 HTN (hypertension) Hyperlipidemia Mixed hyperlipidemia 03/22/2013 Obesity Tobacco use Previous Surgical History PAST SURGICAL HISTORY Procedure Laterality Date COLONOSCOPY FLX DX W/COLLJ SPEC WHEN PFRMD 10/28/2013 Colonoscopy COLONOSCOPY FLX DX W/COLLJ SPEC WHEN PFRMD 01/27/2017 Colonoscopy ENDOMETRIAL BX W/WO ENDOCERVIX BX W/O DILAT SPX 11/16/2007 Irregular menses/Menorrhagia ENDOMETRIAL BX W/WO ENDOCERVIX BX W/O DILAT SPX 03/13/2010 ERCP 2014 with stent ESOPHAGOGASTRODUODENOSCOPY TRANSORAL DIAGNOSTIC 05/05/2014 EGD ESOPHAGOGASTRODUODENOSCOPY TRANSORAL DIAGNOSTIC 09/14/2015 EGD HYSTEROSCOPY BX ENDOMETRIUM&/POLYPC W/WO D&C N/A 11/30/2020 resection of endometrial polyps LAPAROSCOPY SURG CHOLECYSTECTOMY 03/03/2014 PAST SURGICAL HISTORY OF 03/17/2007 Left knee surgery Family History FAMILY HISTORY Problem Relation Age of Onset Diabetes Mother Alcohol/Drug Daughter Diabetes Brother Diabetes Brother Patient Allergies ALLERGIES Allergen Reactions Asa [Salicylates] Hives Phenergan [Prometha* Itching suppositiries Codeine Intolerance Hydrocodone Cough, Vomiting, Shortness of Breath Ibuprofen Intolerance, GI Upset Lisinopril Cough Oxycodone GI Upset, Anaphylaxis, Other: See Comments Body aches. Hot flashes Current Medications Current Outpatient Medications on File Prior to Visit Medication Sig losartan (COZAAR) 50 mg tablet Take 1 tablet by mouth once daily. atorvastatin (LIPITOR) 20 mg tablet Take 1 tablet by mouth daily at bedtime. For cholesterol. pantoprazole DR (PROTONIX) 40 mg tablet Take 1 tablet by mouth twice daily. Take on empty stomach, 1/2 hr before meal. ergocalciferol 50,000 unit capsule (VITAMIN D2, DRISDOL) Take 1 capsule by mouth one time a week. Current Facility-Administered Medications on File Prior to Visit Medication perflutren lipid microspheres 1.3 mL in NaCl (PF) 0.9% 10 mL injection (DEFINITY) sodium chloride 0.9 % (flush) 10 mL (BD POSIFLUSH) Social History Social History Tobacco Use Smoking status: Former Smoker Years: 25.00 Types: Cigarettes Start date: 03/18/2020 Smokeless tobacco: Never Used Substance Use Topics Alcohol use: No Drug use: No Review of Symptoms REVIEW OF SYSTEMS GENERAL: No weight loss, malaise or fevers HEENT: No changes in hearing or vision, no nose bleeds or other nasal problems NECK: Negative for lumps, goiter, pain and significant neck swelling RESPIRATORY: Negative for cough, hemoptysis, wheezing, COPD, dyspnea or shortness of breath CARDIOVASCULAR: Negative for chest pain, leg swelling, CHF or palpitations GI: +GERD. Negative for abdominal discomfort, blood in stools or black stools, change in bowel habit, nausea, vomiting : No history of dysuria, frequency or incontinence MUSCULOSKELETAL: see hpi SKIN: Negative for lesions, rash, and itching PSYCH: Negative for sleep disturbance, mood disorder and recent psychosocial stressors HEMATOLOGY/LYMPHOLOGY: Negative for prolonged bleeding, bruising easily or swollen nodes ENDOCRINE: Negative for cold or heat intolerance, polyuria, polydipsia and goiter NEURO: No history of headaches, syncope, paralysis, seizures or tremors EXAM: BP 180/100 (BP Site: Right Arm, BP Position: Sitting, BP Cuff Size: Large Adult) Pulse 72 Temp 36.7 C (98 F) Resp 18 Ht 164.5 cm (5' 4.76 ) Wt 99.8 kg (220 lb) LMP 03/30/2010 BMI 36.88 kg/m BP 174/89 Pulse 72 Temp 36.7 C (98 F) Resp 18 Ht 164.5 cm (5' 4.76 ) Wt 99.8 kg (220 lb) LMP 03/30/2010 BMI 36.88 kg/m General Appearance: Well appearing, alert, in no acute distress, well-hydrated, well nourished. and Overweight. Skin: Skin color, texture, turgor normal, no suspicious rashes or lesions. Head: Normocephalic, no masses, lesions, tenderness or abnormalities. Eyes: Anicteric sclera. Pupils are equally round and reactive to light. Extraocular movements are intact. . Ears: External ears normal, canals clear, TMs pearly salgado. Nose/Sinuses: Nares normal, septum midline, mucosa normal, no drainage or sinus tenderness. Oropharynx: Lips, mucosa, and tongue normal, teeth and gums normal, oropharynx normal. Neck: Supple, no adenopathy; thyroid symmetric, normal size, no bruits. Lungs: Lungs clear to auscultation. No wheezing, rhonchi, rales.. Heart: RRR without murmur, gallop, or rubs. No ectopy. Abdomen: Normal abdominal exam, Abdomen soft, non-tender. Bowel sounds normal. No masses, organomegaly. Extremities: No deformities, edema, skin discoloration, clubbing or cyanosis. Good capillary refill. . Peripheral Pulses: Normal. Neurologic: Gait normal. Reflexes normal and symmetric. Sensation grossly intact.. Health Maintenance List HEPATITIS C SCREENING Never done HIV SCREENING Never done BP CONTROLLED (<130/80) Never done ONE PNEUMOVAX PRIOR TO AGE 65 Never done SHINGRIX VACCINE(1 of 2) Never done DTAP,TDAP,TD(1 - Tdap) due on 12/15/2007 DEPRESSION SCREENING due on 01/31/2017 COLORECTAL CANCER SCREENING due on 01/28/2020 INFLUENZA(1) due on 03/14/2021 MAMMOGRAM due on 04/11/2021 ANNUAL PCP TEAM CHRONIC DISEASE VISIT due on 10/01/2022 DIABETES SCREEN due on 02/06/2024 PAP TESTING due on 10/24/2025 HPV TESTING due on 10/24/2025 LIPID SCREEN due on 02/05/2026 COVID-19 VACCINE Completed MENINGOCOCCAL CONJUGATE Aged Out Data reviewed n/a ASSESSMENT/PLAN: 1. Well adult exam - ICD9: V70.0, ICD10: Z00.00 (primary diagnosis) - Counseled on healthy diet and regular exercise - Calcium intake with supplements or by diet of 1000 mg/day for under 50, 5143-5780 mg/day for 50+ - Discussed need and benefit for weight loss. BMI 36.88 kg/(m^2) - Mammogram ordered - exam recommended once yearly - Patient was counseled [id number] by myself (the billing provider) for the following immunizations and vaccine components, including side effects: DTaP and Pneumococcal . Patient consents for immunization and understands risks and benefits. A VIS sheet on each immunization was given to the patient. 2. Essential hypertension - ICD9: 401.9, ICD10: I10 - poor control - Increase losartan(Cozaar) to 100mg Repeat bp with nurse in 3 weeks. - Recommended regular aerobic exercise. - Recommend home blood pressure monitoring, to bring results in on next visit - Goal of BP <130/80 - CBC + DIFF - URINALYSIS, WITH MICROSCOPIC 3. Mixed hyperlipidemia - ICD9: 272.2, ICD10: E78.2 - to be determined upon return of lab results - Encouraged following a low carbohydrate, healthy oil intake diet. - Continue current therapy. - ATORVASTATIN 20 MG TABLET - LIPID PANEL, NONFASTING 4. Vitamin D deficiency - ICD9: 268.9, ICD10: E55.9 Check: - VITAMIN D 25 HYDROXY 5. Tubular adenoma polyp of rectum - ICD9: 211.4, ICD10: D12.8 Return to gen surgery - CONSULT TO GENERAL SURGERY 6. Former smoker - ICD9: V15.82, ICD10: Z87.891 - CBC + DIFF 7. LPRD (laryngopharyngeal reflux disease) - ICD9: 478.79, ICD10: K21.9 - stable 8. Carotid stenosis, bilateral - ICD9: 433.10, 433.30, ICD10: I65.23 asymptomatic 9. Leg cramp - ICD9: 729.82, ICD10: R25.2 Check labs. Discussed stretching and stay hydrated. - COMP METABOLIC PANEL - MAGNESIUM BLD - VITAMIN B12 BLOOD - VITAMIN D 25 HYDROXY 10. Screening for diabetes mellitus - ICD9: V77.1, ICD10: Z13.1 - HGB A1C 11. Screening mammogram for breast cancer - ICD9: V76.12, ICD10: Z12.31 - SRINATH SCREENING W JENNIFER 12. Need for vaccination - ICD9: V05.9, ICD10: Z23 - PNEUMOCOCCAL-13 VACCINE PCV-13 13. Encounter for immunization - ICD9: V03.89, ICD10: Z23 - TDAP VACCINE AGE 7+ IM Prudencio Coelho PA-C documented in this encounter [facility] documented as of this encounter (statuses as of 10/01/2021) [facility] History of Past illness Narrative* Problem Noted Date Resolved Date Bile leak 04/01/2014 12/30/2016 Right upper quadrant pain 02/14/20142016 documented as of this encounter (statuses as of 10/03/2021) [facility] History of Past illness Narrative* Problem Noted Date Resolved Date Bile leak 04/01/2014 12/30/2016 Right upper quadrant pain 02/14/20142016 documented as of this encounter (statuses as of 10/11/2021) [facility] History of Past illness Narrative* Problem Noted Date Resolved Date Bile leak 04/01/2014 12/30/2016 Right upper quadrant pain 02/14/20142016 documented as of this encounter (statuses as of 10/16/2021) [facility] History of Past illness Narrative* Problem Noted Date Resolved Date Bile leak 04/01/2014 12/30/2016 Right upper quadrant pain 02/14/20142016 documented as of this encounter (statuses as of 10/16/2021) [facility] History of Past illness Narrative* Problem Noted Date Resolved Date Bile leak 04/01/2014 12/30/2016 Right upper quadrant pain 02/14/20142016 documented as of this encounter (statuses as of 10/17/2021) [facility] History of Past illness Narrative* Problem Noted Date Resolved Date Bile leak 04/01/2014 12/30/2016 Right upper quadrant pain 02/14/20142016 documented as of this encounter (statuses as of 10/22/2021) [facility] History of Past illness Narrative* Problem Noted Date Resolved Date Bile leak 04/01/2014 12/30/2016 Right upper quadrant pain 02/14/20142016 documented as of this encounter (statuses as of 10/22/2021) [facility] History of Past illness Narrative* Problem Noted Date Resolved Date Bile leak 04/01/2014 12/30/2016 Right upper quadrant pain 02/14/20142016 documented as of this encounter (statuses as of 10/23/2021) [facility] History of Past illness Narrative* Problem Noted Date Resolved Date Bile leak 04/01/2014 12/30/2016 Right upper quadrant pain 02/14/20142016 documented as of this encounter (statuses as of 10/30/2021) [facility] History of Past illness Narrative* Problem Noted Date Resolved Date Bile leak 04/01/2014 12/30/2016 Right upper quadrant pain 02/14/20142016 documented as of this encounter (statuses as of 10/30/2021) [facility] History of Past illness Narrative* Problem Noted Date Resolved Date Bile leak 04/01/2014 12/30/2016 Right upper quadrant pain 02/14/20142016 documented as of this encounter (statuses as of 11/01/2021) [facility] History of Past illness Narrative* Problem Noted Date Resolved Date Bile leak 04/01/2014 12/30/2016 Right upper quadrant pain 02/14/20142016 documented as of this encounter (statuses as of 11/08/2021) [facility] History of Past illness Narrative* Problem Noted Date Resolved Date Bile leak 04/01/2014 12/30/2016 Right upper quadrant pain 02/14/20142016 documented as of this encounter (statuses as of 11/09/2021) [facility] History of Past illness Narrative* Problem Noted Date Resolved Date Bile leak 04/01/2014 12/30/2016 Right upper quadrant pain 02/14/20142016 documented as of this encounter (statuses as of 12/06/2021) [facility] History of Past illness Narrative* Problem Noted Date Resolved Date Bile leak 04/01/2014 12/30/2016 Right upper quadrant pain 02/14/20142016 documented as of this encounter (statuses as of 12/07/2021) [facility]2014 History of Past illness Narrative* Problem Noted Date Resolved Date Bile leak 04/01/2014 12/30/2016 Right upper quadrant pain 02/14/20142016 documented as of this encounter (statuses as of 12/20/2021) [facility] History of Past illness Narrative* Problem Noted Date Resolved Date Bile leak 04/01/2014 12/30/2016 Right upper quadrant pain 02/14/20142016 documented as of this encounter (statuses as of 12/25/2021) [facility] History of Past illness Narrative* Problem Noted Date Resolved Date Bile leak 04/01/2014 12/30/2016 Right upper quadrant pain 02/14/20142016 documented as of this encounter (statuses as of 12/25/2021) [facility] History of Past illness Narrative* Problem Noted Date Resolved Date Bile leak 04/01/2014 12/30/2016 Right upper quadrant pain 02/14/20142016 documented as of this encounter (statuses as of 12/25/2021) [facility] History of Past illness Narrative* Problem Noted Date Resolved Date Bile leak 04/01/2014 12/30/2016 Right upper quadrant pain 02/14/20142016 documented as of this encounter (statuses as of 01/03/2022) [facility] History of Past illness Narrative* Problem Noted Date Resolved Date Bile leak 04/01/2014 12/30/2016 Right upper quadrant pain 02/14/20142016 documented as of this encounter (statuses as of 01/08/2022) [facility] History of Past illness Narrative* Problem Noted Date Resolved Date Bile leak 04/01/2014 12/30/2016 Right upper quadrant pain 02/14/20142016 documented as of this encounter (statuses as of 01/10/2022) [facility] History of Past illness Narrative* Problem Noted Date Resolved Date Bile leak 04/01/2014 12/30/2016 Right upper quadrant pain 02/14/20142016 documented as of this encounter (statuses as of 01/16/2022) [facility] History of Past illness Narrative* Problem Noted Date Resolved Date Bile leak 04/01/2014 12/30/2016 Right upper quadrant pain 02/14/20142016 documented as of this encounter (statuses as of 01/30/2022) [facility] History of Past illness Narrative* Problem Noted Date Resolved Date Bile leak 04/01/2014 12/30/2016 Right upper quadrant pain 02/14/20142016 documented as of this encounter (statuses as of 03/13/2022) [facility] History of Past illness Narrative* Problem Noted Date Resolved Date Bile leak 04/01/2014 12/30/2016 Right upper quadrant pain 02/14/20142016 documented as of this encounter (statuses as of 04/09/2022) [facility] History of Past illness Narrative* Problem Noted Date Resolved Date Bile leak 04/01/2014 12/30/2016 Right upper quadrant pain 02/14/20142016 documented as of this encounter (statuses as of 04/16/2022) [facility] History of Past illness Narrative* Problem Noted Date Resolved Date Bile leak 04/01/2014 12/30/2016 Right upper quadrant pain 02/14/20142016 documented as of this encounter (statuses as of 04/29/2022) [facility] History of Past illness Narrative* Problem Noted Date Resolved Date Bile leak 04/01/2014 12/30/2016 Right upper quadrant pain 02/14/20142016 documented as of this encounter (statuses as of 05/07/2022) [facility] History of Past illness Narrative* Problem Noted Date Resolved Date Bile leak 04/01/2014 12/30/2016 Right upper quadrant pain 02/14/20142016 documented as of this encounter (statuses as of 05/07/2022) [facility] History of Past illness Narrative* Problem Noted Date Resolved Date Bile leak 04/01/2014 12/30/2016 Right upper quadrant pain 02/14/20142016 documented as of this encounter (statuses as of 05/08/2022) [facility] History of Past illness Narrative* Problem Noted Date Resolved Date Bile leak 04/01/2014 12/30/2016 Right upper quadrant pain 02/14/20142016 documented as of this encounter (statuses as of 05/14/2022) [facility] History of Past illness Narrative* Problem Noted Date Resolved Date Bile leak 04/01/2014 12/30/2016 Right upper quadrant pain 02/14/20142016 documented as of this encounter (statuses as of 05/20/2022) [facility] History of Past illness Narrative* Problem Noted Date Resolved Date Bile leak 04/01/2014 12/30/2016 Right upper quadrant pain 02/14/20142016 documented as of this encounter (statuses as of 06/27/2022) [facility] History of Past illness Narrative* Problem Noted Date Resolved Date Bile leak 04/01/2014 12/30/2016 Right upper quadrant pain 02/14/20142016 documented as of this encounter (statuses as of 08/06/2022) [facility] History of Past illness Narrative* Problem Noted Date Resolved Date Bile leak 04/01/2014 12/30/2016 Right upper quadrant pain 02/14/20142016 documented as of this encounter (statuses as of 10/08/2022) [facility] History of Past illness Narrative* Problem Noted Date Resolved Date Bile leak 04/01/2014 12/30/2016 Right upper quadrant pain 02/14/20142016 documented as of this encounter (statuses as of 10/14/2022) [facility] History of Past illness Narrative* Problem Noted Date Resolved Date Bile leak 04/01/2014 12/30/2016 Right upper quadrant pain 02/14/20142016 documented as of this encounter (statuses as of 11/05/2022) [facility] History of Past illness Narrative* Problem Noted Date Resolved Date Bile leak 04/01/2014 12/30/2016 Right upper quadrant pain 02/14/20142016 documented as of this encounter (statuses as of 12/11/2022) [facility] History of Past illness Narrative* Problem Noted Date Resolved Date Bile leak 04/01/2014 12/30/2016 Right upper quadrant pain 02/14/20142016 documented as of this encounter (statuses as of 12/12/2022) [facility] History of Past illness Narrative* Problem Noted Date Diagnosed Date Resolved Date Bile leak 04/01/2014 12/30/2016 Right upper quadrant pain 02/14/2014 documented as of this encounter (statuses as of 03/21/2023) [facility] History of Past illness Narrative* Problem Noted Date Diagnosed Date Resolved Date Bile leak 04/01/2014 12/30/2016 Right upper quadrant pain 02/14/2014 documented as of this encounter (statuses as of 04/16/2023) [facility] History of Past illness Narrative* Problem Noted Date Diagnosed Date Resolved Date Bile leak 04/01/2014 12/30/2016 Right upper quadrant pain 02/14/2014 documented as of this encounter (statuses as of 05/18/2023) [facility] Diagnosis Well adult exam- Primary Routine general medical examination at a health care facility Essential hypertension Unspecified essential hypertension Mixed hyperlipidemia Vitamin D deficiency Unspecified vitamin D deficiency Tubular adenoma polyp of rectum Benign neoplasm of rectum and anal canal Former smoker Personal history of tobacco use, presenting hazards to health LPRD (laryngopharyngeal reflux disease) Other diseases of larynx Carotid stenosis, bilateral Occlusion and stenosis of carotid artery without mention of cerebral infarction Leg cramp Cramp of limb Screening for diabetes mellitus Screening mammogram for breast cancer Need for vaccination Need for prophylactic vaccination and inoculation against unspecified single disease Encounter for immunization Need for other specified prophylactic vaccination against single bacterial disease [facility] Elevated alkaline phosphatase level- Primary Other nonspecific abnormal serum enzyme levels Elevated fasting glucose Impaired fasting glucose Elevated vitamin B12 level [facility] Diagnosis Elevated alkaline phosphatase level- Primary Other nonspecific abnormal serum enzyme levels [facility] Diagnosis Elevated alkaline phosphatase level Other nonspecific abnormal serum enzyme levels [facility] Abnormal alkaline phosphatase test Other nonspecific abnormal serum enzyme levels [facility] Diagnosis Elevated alkaline phosphatase level- Primary Other nonspecific abnormal serum enzyme levels Abnormal results of liver function studies Nonspecific abnormal results of liver function study Elevated serum GGT level Other nonspecific abnormal serum enzyme levels Fatty (change of) liver, not elsewhere classified [facility] Diagnosis Essential hypertension- Primary Unspecified essential hypertension [facility] Diagnosis Screening mammogram for breast cancer [facility] Diagnosis Abnormal results of liver function studies Nonspecific abnormal results of liver function study [facility] Diagnosis Pancreatic cyst- Primary Cyst and pseudocyst of pancreas [facility] Diagnosis URI, acute- Primary Acute upper respiratory infections of unspecified site [facility] Diagnosis Screening for colon cancer Special screening for malignant neoplasms, colon History of colonic polyps Personal history of colonic polyps [facility] Diagnosis Hypertension, essential- Primary Unspecified essential hypertension Pancreatic cyst Cyst and pseudocyst of pancreas [facility] Diagnosis Essential hypertension- Primary Unspecified essential hypertension Leg cramping Cramp of limb Vitamin D deficiency Unspecified vitamin D deficiency Elevated vitamin B12 level Screening for colon cancer Special screening for malignant neoplasms, colon Mixed hyperlipidemia [facility] Diagnosis Hypokalemia- Primary Hypopotassemia [facility] Diagnosis Screening for colon cancer- Primary Special screening for malignant neoplasms, colon History of colonic polyps Personal history of colonic polyps [facility] Diagnosis Tubular adenoma polyp of rectum- Primary Benign neoplasm of rectum and anal canal Screening for colon cancer Special screening for malignant neoplasms, colon History of colonic polyps Personal history of colonic polyps [facility] Diagnosis Essential hypertension- Primary Unspecified essential hypertension Mixed hyperlipidemia Elevated fasting glucose Impaired fasting glucose LPRD (laryngopharyngeal reflux disease) Other diseases of larynx Carotid stenosis, bilateral Occlusion and stenosis of carotid artery without mention of cerebral infarction Vitamin D deficiency Unspecified vitamin D deficiency Obesity, Class II, BMI 35-39.9 Obesity, unspecified Low serum vitamin B12 Leg cramps Cramp of limb [facility] Diagnosis Need for vaccination- Primary Need for prophylactic vaccination and inoculation against unspecified single disease Need for influenza vaccination Need for prophylactic vaccination and inoculation against influenza [facility] Diagnosis Essential hypertension- Primary Unspecified essential hypertension Chronic midline low back pain without sciatica [facility] Diagnosis Carotid stenosis, bilateral Occlusion and stenosis of carotid artery without mention of cerebral infarction [facility] Diagnosis History of colonic polyps- Primary Personal history of colonic polyps Tubular adenoma Benign neoplasm of unspecified site [facility] Diagnosis Pain in both knees, unspecified chronicity- Primary [facility] Diagnosis Well adult exam- Primary Routine general medical examination at a health care facility Essential hypertension Unspecified essential hypertension Mixed hyperlipidemia Elevated fasting glucose Impaired fasting glucose Low serum vitamin B12 Liver fibrosis Cirrhosis of liver without mention of alcohol Carotid stenosis, bilateral Occlusion and stenosis of carotid artery without mention of cerebral infarction Obesity, Class II, BMI 35-39.9 Obesity, unspecified Vitamin D deficiency Unspecified vitamin D deficiency Encounter for screening mammogram for breast cancer Encounter for immunization Need for other specified prophylactic vaccination against single bacterial disease [facility] Diagnosis Bacterial sinusitis- Primary Unspecified sinusitis (chronic) documented in this encounter [facility]* Diagnosis Acute cough- Primary documented in this encounter [facility]* Diagnosis Hypokalemia- Primary Hypopotassemia documented in this encounter [facility]* Diagnosis Encounter for screening mammogram for breast cancer documented in this encounter [facility] for referral (narrative)* Diagnostic Procedure Only (Routine) - Authorized Specialty Diagnoses / Procedures Referred By Yovany t Referred To Contact [facility] Diagnoses Screening mammogram for breast cancer Procedures SRINATH SCREENING W JENNIFER SCREENING DIGITAL BREAST TOMOSYNTHESIS BI SCREENING MAMMOGRAPHY BI 2-VIEW BREAST INC CAD Prudencio Coelho PA-C [address] [place] [address] [facility] [address] [place] [address] Referral ID Status Reason Start Date Expiration Date Visits Requested Visits Authorized [id number] Authorized Auto-Generat ed Referral 10/01/2021 10/31/2022 1 1 * Consult, Test, Treat (Routine) - Authorized Specialty Diagnoses / Procedures Referred By Yovany childs Referred To Contact General Surgery Diagnoses Tubular adenoma polyp of rectum Procedures CONSULT TO GENERAL SURGERY OFFICE/OUTPATIENT NEW HIGH MDM 60-74 MINUTES Prudencio Coelho PA-C [address] [place] [address] Referral ID Status Reason Start Date Expiration Date Visits Requested Visits Authorized [id number] Authorized PCP Requested Referral 10/01/2021 10/01/2022 1 1 [facility] for referral (narrative)* Diagnostic Procedure Only (Routine) - Authorized Specialty Diagnoses / Procedures Referred By Yovany childs Referred To Contact [facility] Diagnoses Elevated alkaline phosphatase level Procedures US ABD RT UPPER QUADRANT US ABDOMINAL REAL TIME W/IMAGE LIMITED Prudencio Coelho PA-C [address] [place] [address] [facility] Referral ID Status Reason Start Date Expiration Date Visits Requested Visits Authorized [id number] Authorized Auto-Generat ed Referral 10/10/2021 11/09/2022 1 1 * Consult, Test, Treat (Routine) - Authorized Specialty Diagnoses / Procedures Referred By Contac t Referred To Contact Gastroenterology Diagnoses Elevated alkaline phosphatase level Procedures CONSULT TO GASTROENTEROLOGY OFFICE/OUTPATIENT [facility] 60-74 MINUTES Prudencio Coelho PA-C [address] [place] [address] Referral ID Status Reason Start Date Expiration Date Visits Requested Visits Authorized [id number] Authorized PCP Requested Referral 10/10/2021 10/10/2022 1 1 [facility] for referral (narrative)* Diagnostic Procedure Only (Routine) - Closed Specialty Diagnoses / Procedures Referred By Contac t Referred To Contact [facility] Diagnoses Elevated alkaline phosphatase level Procedures US ABD RT UPPER QUADRANT US ABDOMINAL REAL TIME W/IMAGE LIMITED Prudencio Coelho PA-C [address] [place] [address] [facility] Referral ID Status Reason Start Date Expiration Date V isits Requested Visits Authorized [id number] Closed Auto-Generate d Referral 10/10/2021 11/09/2022 1 1 [facility] for referral (narrative)* Diagnostic Procedure Only (Routine) - Closed Specialty Diagnoses / Procedures Referred By Contac t Referred To Contact [facility] Diagnoses Screening mammogram for breast cancer Procedures SRINATH SCREENING W JENNIFER SCREENING DIGITAL BREAST TOMOSYNTHESIS BI SCREENING MAMMOGRAPHY BI 2-VIEW BREAST INC CAD Prudencio Coelho PA-C [address] [place] [address] [facility] [address] [place] [address] Referral ID Status Reason Start Date Expiration Date V isits Requested Visits Authorized [id number] Closed Auto-Generate d Referral 10/01/2021 10/31/2022 1 1 [facility] for referral (narrative)* Outpatient Procedure (Routine) - Closed Specialty Diagnoses / Procedures Referred By Contac t Referred To Contact [facility] Diagnoses Screening for colon cancer History of colonic polyps Procedures COLONOSCOPY SCREENING COLONOSCOPY FLX DX W/COLLJ SPEC WHEN Florencia Cano PA-C [address] [place] [address] [facility] [address] [place] [address] Referral ID Status Reason Start Date Expiration Date V isits Requested Visits Authorized [id number] Closed Auto-Generate d Referral 11/06/2021 11/05/2022 1 1 [facility] for referral (narrative)* Outpatient Procedure (Routine) - Closed Specialty Diagnoses / Procedures Referred By Contac t Referred To Contact [facility] Diagnoses Screening for colon cancer History of colonic polyps Procedures COLONOSCOPY SCREENING COLONOSCOPY FLX DX W/COLLJ SPEC WHEN Florencia Cano PA-C [address] [place] [address] [facility] [address] [place] [address] Referral ID Status Reason Start Date Expiration Date V isits Requested Visits Authorized [id number] Closed Auto-Generate d Referral 11/06/2021 11/05/2022 1 1 [facility] for referral (narrative)* Outpatient Procedure (Routine) - Closed Specialty Diagnoses / Procedures Referred By Contac t Referred To Contact [facility] Diagnoses Screening for colon cancer History of colonic polyps Procedures COLONOSCOPY SCREENING COLONOSCOPY FLX DX W/COLLJ SPEC WHEN PFDavid Artis MD [address] [place] [address] [facility] [address] [place] [address] Referral ID Status Reason Start Date Expiration Date V isits Requested Visits Authorized [id number] Closed Auto-Generate d Referral 01/11/2022 01/11/2023 1 1 [facility] for referral (narrative)* Outpatient Procedure (Routine) - Authorized Specialty Diagnoses / Procedures Referred By Contac t Referred To [facility] Diagnoses Carotid stenosis, bilateral Procedures US CAROTID ARTERIES [facility] DUPLEX SCAN EXTRACRANIAL ART COMPL BI STUDY Aristeo Arias MD [address] [place] [address] [facility] [place] [id number] [place] [address] Referral ID Status Reason Start Date Expiration Date Visits Requested Visits Authorized [id number] Authorized Auto-Generat ed Referral 04/09/2022 04/09/2023 1 1 [facility] for referral (narrative)* Diagnostic Procedure Only (Routine) - Closed Specialty Diagnoses / Procedures Referred By Contac t Referred To Contact [facility] IMAGING Diagnoses Chronic midline low back pain without sciatica Procedures XR LUMBAR GENERAL 3V AP/LAT/L5-S1 RADEX SPINE LUMBOSACRAL 2/3 VIEWS Prudencio Coelho PA-C [address] [place] [address] Xr Imaging Referral ID Status Reason Start Date Expiration Date V isits Requested Visits Authorized [id number] Closed Auto-Generate d Referral 05/07/2022 06/06/2023 1 1 [facility] for referral (narrative)* Diagnostic Procedure Only (Urgent) - Closed Specialty Diagnoses / Procedures Referred By Contac t Referred To Contact X[facility] IMAGING Diagnoses Pain in both knees, unspecified chronicity Procedures XR KNEE GENERAL 4V AP BOTH/PA BOTH/LAT/MERC BILATERAL RADIOLOGIC EXAM KNEE COMPLETE 4/MORE VIEWS Hal Desai MD [address] [place] [address] X[facility] Imaging Referral ID Status Reason Start Date Expiration Date V isits Requested Visits Authorized [id number] Closed Auto-Generate d Referral 05/20/2022 06/19/2023 1 1 [facility] for referral (narrative)* Diagnostic Procedure Only (Routine) - Authorized Specialty Diagnoses / Procedures Referred By Contac t Referred To Contact [facility] Diagnoses Encounter for screening mammogram for breast cancer Procedures SRINATH SCREENING SCREENING MAMMOGRAPHY BI 2-VIEW BREAST INC CAD Prudencio Coelho PA-C [address] [place] [address] [facility] [address] [place] [address] Referral ID Status Reason Start Date Expiration Date Visits Requested Visits Authorized [id number] Authorized Auto-Generat ed Referral 10/08/2022 11/07/2023 1 1 T [facility] for referral (narrative)* Diagnostic Procedure Only (Routine) - Closed Specialty Diagnoses / Procedures Referred By Contac t Referred To Contact [facility] Diagnoses Encounter for screening mammogram for breast cancer Procedures SRINATH SCREENING SCREENING MAMMOGRAPHY BI 2-VIEW BREAST INC Prudencio June PA-C [address] [place] [address] [facility] [address] [place] [address] Referral ID Status Reason Start Date Expiration Date V isits Requested Visits Authorized [id number] Closed Auto-Generate d Referral 10/08/2022 11/07/2023 1 1 T [facility] for visit Narrative* Diagnostic Procedure Only (Routine) - Closed Specialty Diagnoses / Procedures Referred By Yovany t Referred To Contact [facility] Diagnoses Elevated alkaline phosphatase level Procedures US ABD RT UPPER QUADRANT US ABDOMINAL REAL TIME W/IMAGE LIMITED Prudencio Coelho PA-C [address] [place] [address] [facility] Referral ID Status Reason Start Date Expiration Date V isits Requested Visits Authorized [id number] Closed Auto-Generate d Referral 10/10/2021 11/09/2022 1 1 [facility] for visit Narrative* Diagnostic Procedure Only (Routine) - Closed Specialty Diagnoses / Procedures Referred By Contac t Referred To Contact [facility] Diagnoses Screening mammogram for breast cancer Procedures SRINATH SCREENING W JENNIFER SCREENING DIGITAL BREAST TOMOSYNTHESIS BI SCREENING MAMMOGRAPHY BI 2-VIEW BREAST INC Prudencio June PA-C [address] [place] [address] [facility] [address] [place] [address] Referral ID Status Reason Start Date Expiration Date V isits Requested Visits Authorized [id number] Closed Auto-Generate d Referral 10/01/2021 10/31/2022 1 1 [facility] for visit Narrative* Outpatient Procedure (Routine) - Closed Specialty Diagnoses / Procedures Referred By Contac t Referred To [facility] Diagnoses Screening for colon cancer History of colonic polyps Procedures COLONOSCOPY SCREENING COLONOSCOPY FLX DX W/COLLJ SPEC WHEN [facility] Florencia Lew PA-C [address] [place] [address] [facility] [address] [place] [address] Referral ID Status Reason Start Date Expiration Date V isits Requested Visits Authorized [id number] Closed Auto-Generate d Referral 11/06/2021 11/05/2022 1 1 [facility] for visit Narrative* Outpatient Procedure (Routine) - Closed Specialty Diagnoses / Procedures Referred By Contac t Referred To Contact [facility] Diagnoses Screening for colon cancer History of colonic polyps Procedures COLONOSCOPY SCREENING COLONOSCOPY FLX DX W/COLLJ SPEC WHEN [facility] David Palmer MD [address] [place] [address] [facility] [place] [address] [place] [address] Referral ID Status Reason Start Date Expiration Date V isits Requested Visits Authorized [id number] Closed Auto-Generate d Referral 01/11/2022 01/11/2023 1 1 [facility]* Diagnostic Procedure Only (Routine) - Closed Specialty Diagnoses / Procedures Referred By Yovany t Referred To Contact BR IMAGING Diagnoses Encounter for screening mammogram for breast cancer Procedures SRINATH SCREENING SCREENING MAMMOGRAPHY BI 2-VIEW BREAST INC Prudencio June PA-C [address] [place] [address] [facility] [address] [place] [address] Referral ID Status Reason Start Date Expiration Date V isits Requested Visits Authorized [id number] Closed Auto-Generate d Referral 10/08/2022 11/07/2023 1 1 [facility] Advance Directives No Advanced Directives Records FoundDocuments on File Type Date Recorded 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 Leader Expl anation Advance Directive(s) 01/27/2017 10:17 AM Advance Directive(s) 09/14/2015 9:30 AM Advance Directive(s) 09/08/2015 12:19 PM Advance Directive(s) 09/02/2015 10:06 AM Documents on File Type Date Recorded 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 Leader 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 anation Advance Directive(s) 01/27/2017 10:17 AM Advance Directive(s) 09/14/2015 9:30 AM Advance Directive(s) 09/08/2015 12:19 PM Advance Directive(s) 09/02/2015 10:06 AM Documents on File Type Date Recorded 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 Leader Expl anation Advance Directive(s) 11/13/2021 2:05 PM Advance Directive(s) 01/27/2017 10:17 AM Advance Directive(s) 09/14/2015 9:30 AM Advance Directive(s) 09/08/2015 12:19 PM Advance Directive(s) 09/02/2015 10:06 AM Documents on File Type Date Recorded 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 Leader Expl anation Advance Directive(s) 12/24/2021 8:40 AM Advance Directive(s) 11/13/2021 2:05 PM Advance Directive(s) 01/27/2017 10:17 AM Advance Directive(s) 09/14/2015 9:30 AM Advance Directive(s) 09/08/2015 12:19 PM Advance Directive(s) 09/02/2015 10:06 AM Documents on File Type Date Recorded 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 Leader 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 anation Advance Directive(s) 12/24/2021 8:40 AM Advance Directive(s) 11/13/2021 2:05 PM Advance Directive(s) 01/27/2017 10:17 AM Advance Directive(s) 09/14/2015 9:30 AM Advance Directive(s) 09/08/2015 12:19 PM Advance Directive(s) 09/02/2015 10:06 AM Documents on File Type Date Recorded 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 Leader 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 anation Advance Directive(s) 01/29/2022 7:05 PM Advance Directive(s) 12/24/2021 8:40 AM Advance Directive(s) 11/13/2021 2:05 PM Advance Directive(s) 01/27/2017 10:17 AM Advance Directive(s) 09/14/2015 9:30 AM Advance Directive(s) 09/08/2015 12:19 PM Advance Directive(s) 09/02/2015 10:06 AM Reason for Referral Specialty Diagnoses / Procedures Referred By Contac t Referred To Contact MR IMAGING Diagnoses Fatty (change of) liver, not elsewhere classified Procedures MRI LIVER WO/W IVCON MRI ABDOMEN W/O & W/CONTRAST MATERIAL Prudencio Coelho PA-C [address] [place] [address] Mr Imaging Referral ID Status Reason Start Date Expiration Date Visits Requested Visits Authorized [id number] Authorized Auto-Generat ed Referral 10/16/2021 12/15/2021 1 1 Specialty Diagnoses / Procedures Referred By Contac t Referred To Contact MR IMAGING Diagnoses Abnormal results of liver function studies Procedures MRI PANC/CHRISTOS WO/W IVCON MRI ABDOMEN W/O & W/CONTRAST MATERIAL Prudencio Coelho PA-C [address] [place] [address] Mr Imaging Referral ID Status Reason Start Date Expiration Date V isits Requested Visits Authorized [id number] Closed Auto-Generate d Referral 10/16/2021 11/15/2022 1 1 Specialty Diagnoses / Procedures Referred By Contac t Referred To Contact Gastroenterology Diagnoses Pancreatic cyst Procedures CONSULT TO GASTROENTEROLOGY OFFICE/OUTPATIENT NEW HIGH MDM 60-74 MINUTES Prudencio Coelho PA-C [address] [place] [address] Referral ID Status Reason Start Date Expiration Date Visits Requested Visits Authorized [id number] Authorized PCP Requested Referral 11/08/2021 11/08/2022 1 1 Specialty Diagnoses / Procedures Referred By Contac t Referred To Contact General Surgery Diagnoses Screening for colon cancer Procedures CONSULT TO GENERAL SURGERY OFFICE/OUTPATIENT [facility] HIGH MDM 60-74 MINUTES Prudencio Coelho PA-C [address] [place] [address] Referral ID Status Reason Start Date Expiration Date Visits Requested Visits Authorized [id number] Authorized PCP Requested Referral 01/08/2022 01/08/2023 1 1 Specialty Diagnoses / Procedures Referred By Yovany childs Referred To Contact Prudencio Coelho PA-C [address] [place] [address] Referral ID Status Reason Start Date Expiration Date Visits Re quested Visits Authorized [id number] Closed 1 1 Summary Purpose Family History No Family History Records FoundNo Family History Records Found Health Concerns Infection Onset Date Last Indicated Resolved Time COVID-19 Rule-Out 12/06/2021 12/06/2021 Infection Onset Date Last Indicated Resolved Time COVID-19 Rule-Out 12/06/2021 12/06/2021 12/07/2021 1:29 AM EDT Infection Onset Date Last Indicated Resolved Time COVID-19 Rule-Out 12/06/2021 12/06/2021 12/07/2021 1:29 AM EDT Medications Administered Section Inactive Administered Medications - up to 3 most recent administrations Medication Order MAR Action Action Date Dose Rate Site diphenhydrAMINE 12.5-50 mg injection (BENADRYL) 12.5-50 mg, INTRAVENOUS, DIRECTED, Starting on Fri12/24/21 at 1030, Until Fri12/24/21 at 1429, DOSING DIRECTED BY PHYSICIAN FOR PROCEDURAL SEDATION ONLY, Intraprocedure Given 12/24/2021 10:10 AM EDT 50 mg fentaNYL 50 mcg/mL 25-100 mcg injection (SUBLIMAZE) 25-100 mcg, INTRAVENOUS, DIRECTED, Starting on Fri12/24/21 at 1030, Until Fri12/24/21 at 1429, DOSING DIRECTED BY PHYSICIAN FOR PROCEDURAL SEDATION ONLY, Intraprocedure Given 12/24/2021 10:15 AM EDT 50 mcg Inactive Administered Medications - up to 3 most recent administrations Medication Order MAR Action Action Date Dose Rate Site diphenhydrAMINE 12.5-50 mg injection (BENADRYL) 12.5-50 mg, INTRAVENOUS, DIRECTED, Starting on Fri03/12/22 at 1130, Until Fri03/12/22 at 1529, DOSING DIRECTED BY PHYSICIAN FOR PROCEDURAL SEDATION ONLY, Intraprocedure Given 03/12/2022 11:08 AM EDT 50 mg fentaNYL 50 mcg/mL 25-100 mcg injection (SUBLIMAZE) 25-100 mcg, INTRAVENOUS, DIRECTED, Starting on Fri03/12/22 at 1130, Until Fri03/12/22 at 1529, DOSING DIRECTED BY PHYSICIAN FOR PROCEDURAL SEDATION ONLY, Intraprocedure Given by LIP 03/12/2022 11:04 AM EDT 50 mcg Additional Source Comments Source Comments (unrecognize d section and content) In the event this informatio n is protected by the Federal Confidentiality of Alcohol and Drug Abuse Patient Records regulations: The Federal rules restrict any use of the information to criminally investigate or prosecute any alcohol or drug abuse patient.[facility] HospitalIn the event this information is protected by the Federal Confidentiality of Alcohol and Drug Abuse Patient Records regulations: The Federal rules restrict any use of the information to criminally investigate or prosecute any alcohol or drug abuse patient.[facility] HospitalIn the event this information is protected by the Federal Confidentiality of Alcohol and Drug Abuse Patient Records regulations: The Federal rules restrict any use of the information to criminally investigate or prosecute any alcohol or drug abuse patient.[facility] HospitalIn the event this information is protected by the Federal Confidentiality of Alcohol and Drug Abuse Patient Records regulations: The Federal rules restrict any use of the information to criminally investigate or prosecute any alcohol or drug abuse patient.[facility] HospitalIn the event this information is protected by the Federal Confidentiality of Alcohol and Drug Abuse Patient Records regulations: The Federal rules restrict any use of the information to criminally investigate or prosecute any alcohol or drug abuse patient.[facility] HospitalIn the event this information is protected by the Federal Confidentiality of Alcohol and Drug Abuse Patient Records regulations: The Federal rules restrict any use of the information to criminally investigate or prosecute any alcohol or drug abuse patient.[facility] HospitalIn the event this information is protected by the Federal Confidentiality of Alcohol and Drug Abuse Patient Records regulations: The Federal rules restrict any use of the information to criminally investigate or prosecute any alcohol or drug abuse patient.[facility] HospitalIn the event this information is protected by the Federal Confidentiality of Alcohol and Drug Abuse Patient Records regulations: The Federal rules restrict any use of the information to criminally investigate or prosecute any alcohol or drug abuse patient.[facility] HospitalIn the event this information is protected by the Federal Confidentiality of Alcohol and Drug Abuse Patient Records regulations: The Federal rules restrict any use of the information to criminally investigate or prosecute any alcohol or drug abuse patient.[facility] HospitalIn the event this information is protected by the Federal Confidentiality of Alcohol and Drug Abuse Patient Records regulations: The Federal rules restrict any use of the information to criminally investigate or prosecute any alcohol or drug abuse patient.[facility] HospitalIn the event this information is protected by the Federal Confidentiality of Alcohol and Drug Abuse Patient Records regulations: The Federal rules restrict any use of the information to criminally investigate or prosecute any alcohol or drug abuse patient.[facility] HospitalIn the event this information is protected by the Federal Confidentiality of Alcohol and Drug Abuse Patient Records regulations: The Federal rules restrict any use of the information to criminally investigate or prosecute any alcohol or drug abuse patient.[facility] HospitalIn the event this information is protected by the Federal Confidentiality of Alcohol and Drug Abuse Patient Records regulations: The Federal rules restrict any use of the information to criminally investigate or prosecute any alcohol or drug abuse patient.[facility] HospitalIn the event this information is protected by the Federal Confidentiality of Alcohol and Drug Abuse Patient Records regulations: The Federal rules restrict any use of the information to criminally investigate or prosecute any alcohol or drug abuse patient.[facility] HospitalIn the event this information is protected by the Federal Confidentiality of Alcohol and Drug Abuse Patient Records regulations: The Federal rules restrict any use of the information to criminally investigate or prosecute any alcohol or drug abuse patient.[facility] HospitalIn the event this information is protected by the Federal Confidentiality of Alcohol and Drug Abuse Patient Records regulations: The Federal rules restrict any use of the information to criminally investigate or prosecute any alcohol or drug abuse patient.[facility] HospitalIn the event this information is protected by the Federal Confidentiality of Alcohol and Drug Abuse Patient Records regulations: The Federal rules restrict any use of the information to criminally investigate or prosecute any alcohol or drug abuse patient.[facility] HospitalIn the event this information is protected by the Federal Confidentiality of Alcohol and Drug Abuse Patient Records regulations: The Federal rules restrict any use of the information to criminally investigate or prosecute any alcohol or drug abuse patient.[facility] HospitalIn the event this information is protected by the Federal Confidentiality of Alcohol and Drug Abuse Patient Records regulations: The Federal rules restrict any use of the information to criminally investigate or prosecute any alcohol or drug abuse patient.[facility] HospitalIn the event this information is protected by the Federal Confidentiality of Alcohol and Drug Abuse Patient Records regulations: The Federal rules restrict any use of the information to criminally investigate or prosecute any alcohol or drug abuse patient.[facility] HospitalIn the event this information is protected by the Federal Confidentiality of Alcohol and Drug Abuse Patient Records regulations: The Federal rules restrict any use of the information to criminally investigate or prosecute any alcohol or drug abuse patient.[facility] HospitalIn the event this information is protected by the Federal Confidentiality of Alcohol and Drug Abuse Patient Records regulations: The Federal rules restrict any use of the information to criminally investigate or prosecute any alcohol or drug abuse patient.[facility] HospitalIn the event this information is protected by the Federal Confidentiality of Alcohol and Drug Abuse Patient Records regulations: The Federal rules restrict any use of the information to criminally investigate or prosecute any alcohol or drug abuse patient.[facility] HospitalIn the event this information is protected by the Federal Confidentiality of Alcohol and Drug Abuse Patient Records regulations: The Federal rules restrict any use of the information to criminally investigate or prosecute any alcohol or drug abuse patient.[facility] HospitalIn the event this information is protected by the Federal Confidentiality of Alcohol and Drug Abuse Patient Records regulations: The Federal rules restrict any use of the information to criminally investigate or prosecute any alcohol or drug abuse patient.[facility] HospitalIn the event this information is protected by the Federal Confidentiality of Alcohol and Drug Abuse Patient Records regulations: The Federal rules restrict any use of the information to criminally investigate or prosecute any alcohol or drug abuse patient.[facility] HospitalIn the event this information is protected by the Federal Confidentiality of Alcohol and Drug Abuse Patient Records regulations: The Federal rules restrict any use of the information to criminally investigate or prosecute any alcohol or drug abuse patient.[facility] HospitalIn the event this information is protected by the Federal Confidentiality of Alcohol and Drug Abuse Patient Records regulations: The Federal rules restrict any use of the information to criminally investigate or prosecute any alcohol or drug abuse patient.[facility] HospitalIn the event this information is protected by the Federal Confidentiality of Alcohol and Drug Abuse Patient Records regulations: The Federal rules restrict any use of the information to criminally investigate or prosecute any alcohol or drug abuse patient.[facility] HospitalIn the event this information is protected by the Federal Confidentiality of Alcohol and Drug Abuse Patient Records regulations: The Federal rules restrict any use of the information to criminally investigate or prosecute any alcohol or drug abuse patient.[facility] HospitalIn the event this information is protected by the Federal Confidentiality of Alcohol and Drug Abuse Patient Records regulations: The Federal rules restrict any use of the information to criminally investigate or prosecute any alcohol or drug abuse patient.[facility] HospitalIn the event this information is protected by the Federal Confidentiality of Alcohol and Drug Abuse Patient Records regulations: The Federal rules restrict any use of the information to criminally investigate or prosecute any alcohol or drug abuse patient.[facility] HospitalIn the event this information is protected by the Federal Confidentiality of Alcohol and Drug Abuse Patient Records regulations: The Federal rules restrict any use of the information to criminally investigate or prosecute any alcohol or drug abuse patient.[facility] HospitalIn the event this information is protected by the Federal Confidentiality of Alcohol and Drug Abuse Patient Records regulations: The Federal rules restrict any use of the information to criminally investigate or prosecute any alcohol or drug abuse patient.[facility] HospitalIn the event this information is protected by the Federal Confidentiality of Alcohol and Drug Abuse Patient Records regulations: The Federal rules restrict any use of the information to criminally investigate or prosecute any alcohol or drug abuse patient.[facility] HospitalIn the event this information is protected by the Federal Confidentiality of Alcohol and Drug Abuse Patient Records regulations: The Federal rules restrict any use of the information to criminally investigate or prosecute any alcohol or drug abuse patient.[facility] HospitalIn the event this information is protected by the Federal Confidentiality of Alcohol and Drug Abuse Patient Records regulations: The Federal rules restrict any use of the information to criminally investigate or prosecute any alcohol or drug abuse patient.[facility] HospitalIn the event this information is protected by the Federal Confidentiality of Alcohol and Drug Abuse Patient Records regulations: The Federal rules restrict any use of the information to criminally investigate or prosecute any alcohol or drug abuse patient.[facility] HospitalIn the event this information is protected by the Federal Confidentiality of Alcohol and Drug Abuse Patient Records regulations: The Federal rules restrict any use of the information to criminally investigate or prosecute any alcohol or drug abuse patient.[facility] HospitalIn the event this information is protected by the Federal Confidentiality of Alcohol and Drug Abuse Patient Records regulations: The Federal rules restrict any use of the information to criminally investigate or prosecute any alcohol or drug abuse patient.[facility] HospitalIn the event this information is protected by the Federal Confidentiality of Alcohol and Drug Abuse Patient Records regulations: The Federal rules restrict any use of the information to criminally investigate or prosecute any alcohol or drug abuse patient.[facility] HospitalIn the event this information is protected by the Federal Confidentiality of Alcohol and Drug Abuse Patient Records regulations: The Federal rules restrict any use of the information to criminally investigate or prosecute any alcohol or drug abuse patient.[facility] HospitalIn the event this information is protected by the Federal Confidentiality of Alcohol and Drug Abuse Patient Records regulations: The Federal rules restrict any use of the information to criminally investigate or prosecute any alcohol or drug abuse patient.[facility] HospitalIn the event this information is protected by the Federal Confidentiality of Alcohol and Drug Abuse Patient Records regulations: The Federal rules restrict any use of the information to criminally investigate or prosecute any alcohol or drug abuse patient.[facility] Reason for Visit (unrecogniz ed section and content) Reason Comments Results Reason Comments Results Reason Comments Blood Pressure Check Reason Comments Orders Specialty Diagnoses / Procedures Referred By Contac t Referred To Contact MR IMAGING Diagnoses Abnormal results of liver function studies Procedures MRI PANC/CHRISTOS WO/W IVCON MRI ABDOMEN W/O & W/CONTRAST MATERIAL Prudencio Coelho PA-C [address] [place] [address] Mr Imaging Referral ID Status Reason Start Date Expiration Date V isits Requested Visits Authorized [id number] Closed Auto-Generate d Referral 10/16/2021 11/15/2022 1 1 Reason Comments Results Reason Comments Cough Pt denied chest pain , SOB reported [place], sore throat pain rated 7, x1 week Reason Comments Hypertension Reason Comments Patient Update Appointment Reason Comments Results Patient Update Reason Comments Recheck blood pressure Reason Comments COLON ASC Reason Comments Outside Labs Results Reason Comments F/U 6 months Reason Onset Date Comments Imm/Inj Immunizations 04/29/2022 Flu vaccination Reason Comments Recheck Medication and bp Reason Comments Follow Up colonoscopy Reason Comments Knee Pain bilateral knee and t high pain x 1 month Reason Onset Date Comments Refill Request 08/06/2022 Reason Comments Yearly Exam Reason Comments Sinus Problem sinus pressure, drai nage and cough x 3 weeks Reason Comments Cough Congestion, body ach es, headache, x 3-4 days Care Teams (unrecognized sec tion and content) Business Objects Architect Relationship Specialty Start Date End Date Aristeo Arias MD [address] [place], [place] [id number] PCP - General Family Practice 07/17/20 Business Objects Architect Relationship Specialty Start Date End Date Aristeo Arias MD [address] [place], [place] [id number] PCP - General Family Practice 07/17/20 Business Objects Architect Relationship Specialty Start Date End Date Aristeo Arias MD [address] [place], [place] [id number] PCP - General Family Practice 07/17/20 Business Objects Architect Relationship Specialty Start Date End Date Aristeo Arias MD [address] [place], [place] [id number] PCP - General Family Practice 07/17/20 Business Objects Architect Relationship Specialty Start Date End Date Aristeo Arias MD [address] [place] [address] PCP - General Family Practice 07/17/20 Business Objects Architect Relationship Specialty Start Date End Date Aristeo Arias MD [facility] [place] [address] PCP - General Family Practice 07/17/20 Business Objects Architect Relationship Specialty Start Date End Date Aristeo Arias MD [facility] [place] [address] PCP - General Family Practice 07/17/20 Business Objects Architect Relationship Specialty Start Date End Date Aristeo Arias MD [address] [place] [address], [place] [address] PCP - General Family Practice 07/17/20 Business Objects Architect Relationship Specialty Start Date End Date Aristeo Arias MD [address] [place] [address], [place] [address] PCP - General Family Practice 07/17/20 Business Objects Architect Relationship Specialty Start Date End Date Aristeo Arias MD [address] [place] [address] [place] [address] PCP - General Family Practice 07/17/20 Business Objects Architect Relationship Specialty Start Date End Date Aristeo Arias MD [address] [place] [address] [place] [address] PCP - General Family Practice 07/17/20 Business Objects Architect Relationship Specialty Start Date End Date Aristeo Arias MD [facility] [place] [address] PCP - General Family Practice 07/17/20 Business Objects Architect Relationship Specialty Start Date End Date Aristeo Arias MD [address] [place] [address], [place] [address] PCP - General Family Practice 07/17/20 Business Objects Architect Relationship Specialty Start Date End Date Aristeo Arias MD [address] [place] [address] PCP - General Family Practice 07/17/20 Business Objects Architect Relationship Specialty Start Date End Date Aristeo Arias MD [address] [place] [address] PCP - General Family Practice 07/17/20 Business Objects Architect Relationship Specialty Start Date End Date Aristeo Arias MD [facility] [place] [address] PCP - General Family Practice 07/17/20 Business Objects Architect Relationship Specialty Start Date End Date Aristeo Arias MD [facility] [place] [address] PCP - General Family Practice 07/17/20 Business Objects Architect Relationship Specialty Start Date End Date Aristeo Arias MD [facility] [place] [address] PCP - General Family Practice 07/17/20 Business Objects Architect Relationship Specialty Start Date End Date Aristeo Arias MD [facility] [place] [address] PCP - General Family Practice 07/17/20 Business Objects Architect Relationship Specialty Start Date End Date Aristeo Arias MD [facility] [id number] PCP - General Family Medicine 07/17/20 [employer] Relationship Specialty Start Date End Date Aristeo Arias MD [facility] [place] [address] PCP - General Family Medicine 07/17/20 [employer] Architect Relationship Specialty Start Date End Date Aristeo Arias MD [facility] [place] [address] PCP - General Family Medicine 07/17/20 Business [employer] Architect Relationship Specialty Start Date End Date Aristeo Arias MD [address] [place] [address] PCP - General Family Medicine 07/17/20 Business [employer] Architect Relationship Specialty Start Date End Date Aristeo Arias MD [address] [place] [address] PCP - General Family Medicine 07/17/20 Business [employer] Architect Relationship Specialty Start Date End Date Aristeo Arias MD [address] [place] [address], [place] [address] PCP - General Family Medicine 07/17/20 Business Objects Architect Relationship Specialty Start Date End Date Aristeo Arias MD [address] [place] [address], [place] [address] PCP - General Family Medicine 07/17/20 Business Objects Architect Relationship Specialty Start Date End Date Aristeo Arias MD [facility] [place] [address] PCP - General Family Medicine 07/17/20 Business Objects Architect Relationship Specialty Start Date End Date Aristeo Arias MD [facility] [place] [address] PCP - General Family Medicine 07/17/20 Business [employer] Architect Relationship Specialty Start Date End Date Aristeo Arias MD [facility] [place] [address] PCP - General Family Medicine 07/17/20 Business [employer] Architect Relationship Specialty Start Date End Date Aristeo Arias MD [facility] [place] [address] PCP - General Family Medicine 07/17/20 Business [employer] Architect Relationship Specialty Start Date End Date Aristeo Arias MD [address] [place] [address], [place] [address] PCP - General Family Medicine 07/17/20 Business [employer] Architect Relationship Specialty Start Date End Date Aristeo Arias MD [address] [place], [place] [address] [phone] PCP - General Family Medicine 07/17/20 Business [employer] Architect Relationship Specialty Start Date End Date Aristeo Arias MD [address] [place] [address] PCP - General Family Medicine 07/17/20 Business [employer] Architect Relationship Specialty Start Date End Date Aristeo Arias MD [address] [place], [place] [address] PCP - General Family Medicine 07/17/20 Business Objects Architect Relationship Specialty Start Date End Date Aristeo Arias MD [address] [place], [place] [phone] PCP - General Family Medicine 07/17/20 INFORMATION SOURCE (unrecogn ized section and content) DATE CREATED AUTHOR AUTHOR'S ORGANIZ ATANISH 06/24/2023 [facility] FOR RECORDS PERTAINING TO PATIENTS WHO ARE OR HAVE BEEN ENROLLED IN A CHEMICAL DEPENDENCY/SUBSTANCEABUSE PROGRAM, SOME INFORMATION MAY BE OMITTED. This clinical summary was aggregated from multiple sources. Caution should be exercised in using it in the provision of clinical care. This summary normalizes information from multiple sources, and as a consequence, information in this document may materially change the coding, format and clinical context of patient data. In addition, data may be omitted in some cases. CLINICAL DECISIONS SHOULD BE BASED ON THE PRIMARY CLINICAL RECORDS. [employer] provides no warranty or guarantee of the accuracy or completeness of information in this document.
[2023-08-12 13:22] LABS: Absolute Lymphocyte Count 1.78 X10^3/uL (0.83-4.51); Absolute Neutrophil Count 2.4 X10^3/uL (2.0-7.7); Basophil# 0.04 X10^3/uL; Basophil% 0.8 % (0-1); Eosinophils% 2.1 % (0-5); Hematocrit 41.6 % (37-47); Hemoglobin 13.4 g/dL (12.0-15.0); Lymphocyte # 1.78 X10^3/ul (0.83-4.51); Lymphocyte % 37.1 % (19-41); Mean Corp Hgb Conc 32.2 g/dL (32-36); Mean Corpuscular Volume 99.3 fL (81-99); Mean Platelet Vol. 12.2 fl (6.2-12.0); Monocyte# 0.44 X10^3/uL; Monocyte% 9.2 % (0-10); NRBC Flagged by Analyzer 0 % (0-5); Neutrophil # 2.42 X10^3/uL (2.7-7.7); Neutrophil % 50.4 % (47-70); Platelet Count 179 K/mm3 (150-450); RBC Distribution Width CV 12.2 % (11.6-14.6); RBC Distribution Width SD 44.2 fl (35.1-43.9); Red Blood Count 4.19 M/mm3 (4.2-5.4); White Blood Count 4.8 K/mm3 (4.4-11.0)
[2023-08-12 13:29] LABS: International Normalized Ratio 0.9; Prothrombin Time (Protime)PT. 12.5 SECONDS (11.7-14.9)
[2023-08-12 13:52] LABS: ALB/GLOB Ratio 0.9 RATIO (0.9-2.4); AST(SGOT) 11 U/L (15-37); Alanine Aminotransfer ALT/SGPT 17 U/L (13-56); Albumin, Serum 3.4 g/dL (3.2-5.0); Alkaline Phosphatase 116 U/L (45-117); Anion Gap 4 (5-15); BUN 16 mg/dL (7-18); BUN/Creat Ratio 18.6 RATIO (10-20); CRP < 2.90 mg/L (0.0-3.0); Calcium,Total 8.8 mg/dL (8.5-10.1); Chloride 110 mmol/L (98-107); Cholesterol 193 mg/dL (200); Creatinine, Serum 0.86 mg/dL (0.55-1.02); EST Glomerular Filtration Rate 70 mL/min (>60); Est Glom Filt Rate - Afr Amer 85 mL/min (>60); Globulin 3.7 g/dL (2.2-4.2); Glucose 100 mg/dL (74-106); High Density Lipoprotein 54 mg/dL; Potassium 3.4 mmol/L (3.5-5.1); Protein, Total 7.1 g/dL (6.4-8.2); Sodium Level 143 mmol/L (136-145); Triglycerides 179 mg/dL; Very Low Density Lipoprotein 36 mg/dL (5-40)
[2023-08-12 13:55] LABS: Hemoglobin A1c 5.7 % (3.8-5.6)
[2023-08-14 12:09] LABS: ANTINUCLEAR ANTIBODIES DIRECT Negative (Negative)
== END | disposition home or self-care (01) ==
LOC: LAB 12:31
PROVIDERS: PCP Physician Assistant; Referring Provider Internal Medicine; Visit Provider Internal Medicine
DX: K75.81 Nonalcoholic steatohepatitis (NASH) (principal); K74.00 Hepatic fibrosis, unspecified; K21.9 Gastro-esophageal reflux disease without esophagitis
CPT/HCPCS: 36415; 80053; 80061; 82105; 83036; 85025; 85610; 86038; 86140; 86225; 86235

== ENCOUNTER 2023-09-02 11:04 | Emergency (ER) | payer MEDICARE, MEDICAID, SELFPAY ==
[2023-09-02 11:06] VITALS: BP 187/81; PULSE 61; RESP 14; TEMP 36.8; O2SAT 100; BMI 35.6
== END 2023-09-02 13:40 | disposition left against medical advice (07) ==
LOC: ED 13:47
PROVIDERS: PCP Physician Assistant
DX: M79.671 Pain in right foot (principal); Z53.21 Procedure and treatment not carried out due to patient leaving prior to being seen by health care provider

== ENCOUNTER → 2023-09-02 | Outpatient (CLI) | payer MEDICARE, MEDICAID, SELFPAY ==
--- NOTE | 2023-09-02 09:53 | US_ITS ---
STUDY: ABDOMINAL ULTRASOUND - RIGHT UPPER QUADRANT; ELASTOGRAPHY REASON FOR VISIT: Female, 68 years old. - [place] TECHNIQUE: Ultrasound evaluation of the right upper quadrant was performed with real-time and static argueta-scale imaging. Point quantification shear wave elastography was performed ([employer]). TECHNICAL QUALITY: Adequate. COMPARISON: Comparison is made with prior study dated July 09, 2022. FINDINGS: Liver: The liver measures 17 cm. There is increased echogenicity consistent with fatty infiltration. The bile ducts are within normal limits. There is hepatic color flow. The direction of portal flow is hepatopetal. There is no demonstrated mass lesion. Median liver stiffness measured 8 kPa. Gallbladder: The patient is status post cholecystectomy. Common Bile Duct (C.B.D.): The common bile duct measures 3.6 mm. Pancreas: The pancreas is not visualized due to overlying bowel gas. Right Kidney: Normal size of the right kidney. The right kidney measures 8.6 cm x 5 cm x 4.7 cm. Normal renal cortex. The right cortex measures 1.1 cm. There is a 1.2 cm x 1 cm x 0.9 cm renal cyst. There is no right hydronephrosis. US/ABD Limited w/ Elastography IMPRESSION: 1. Liver stiffness measures 8.0 kPa compatible with F2-F3 (Mild to moderate liver fibrosis) Metavir score. Electronically Signed: Ritesh Cartwright MD at 13:27 EST ,
== END | disposition home or self-care (01) ==
PROVIDERS: PCP Physician Assistant; Referring Provider Internal Medicine; Visit Provider Internal Medicine
DX: K75.81 Nonalcoholic steatohepatitis (NASH) (principal); K74.00 Hepatic fibrosis, unspecified; K21.9 Gastro-esophageal reflux disease without esophagitis
CPT/HCPCS: 76705; 76981

== ENCOUNTER → 2024-04-20 | Outpatient (CLI) | payer MEDICARE, SELFPAY ==
--- NOTE | 2024-04-20 13:02 | CDU_ITS ---
Reason For Study: Carotid stenosis Rt. Velocities/BP Lt. Velocities/BP Prox CCA 141.2/18.8 cm/sec. Prox CCA 102.8/18.8 cm/sec. Mid CCA 86.4/17 cm/sec. Mid CCA 93.7/22.5 cm/sec. Dist CCA 86.4/20.6 cm/sec. Dist CCA 93.7/22.5 cm/sec. Prox ICA 66.3/17.9 cm/sec. Prox ICA 56.4/19 cm/sec. Mid ICA 74/22.3 cm/sec. Mid ICA 85/32.2 cm/sec. Dist ICA 94.9/27.8 cm/sec. Dist ICA 96.1/27.4 cm/sec. Rt. ICA/CCA = 1.10. Lt. ICA/CCA = 1.03. Prox ECA 137.5/11.5 cm/sec. Prox ECA 95.5/11.5 cm/sec. Rt. Vert. 45.4/11.3 cm/sec. Lt. Vert. 41.9/11.6 cm/sec. Right Extracranial There is homogeneous, smooth atherosclerotic plaque noted in the right common carotid artery. There is heterogeneous, irregular atherosclerotic plaque noted in the right internal carotid artery. There is homogeneous, smooth atherosclerotic plaque noted in the right external carotid artery. Antegrade flow is noted in the right vertebral artery. Left Extracranial There is intimal thickening but no significant atherosclerotic plaque noted in the left common carotid artery. There is homogeneous, smooth atherosclerotic plaque noted in the left internal carotid artery. There is intimal thickening but no significant atherosclerotic plaque noted in the left external carotid artery. Antegrade flow is noted in the left vertebral artery. Procedure Carotid Duplex [id number]. This is a Carotid Duplex examination using B-mode, color flow and specral Doppler. Exam performed in department. VL/Carotid Duplex Ultrasound Interpretation Summary Mild (<50%) stenosis right extracranial internal carotid. Mild (<50%) stenosis left extracranial internal carotid. Patent and antegrade vertebrals bilaterally. Ordering Physician: Paula Barrera Referring Physician: Paula Barrera Performed By: Tiffanie Ortega RVT
== END | disposition home or self-care (01) ==
PROVIDERS: PCP Internal Medicine; Referring Provider Internal Medicine; Visit Provider Internal Medicine
DX: I65.23 Occlusion and stenosis of bilateral carotid arteries (principal)
CPT/HCPCS: 93880

== ENCOUNTER → 2024-05-03 | Outpatient (CLI) | payer MEDICARE, SELFPAY ==
--- NOTE | 2024-05-03 13:42 | ECHOD_ITS ---
Reason For Study: MURMUR Procedure This was a 2D Doppler, Color Flow transthoracic echocardiogram. Exam performed in department. Left Ventricle Normal size and thickness. The left ventricular ejection fraction is 70 %. Normal diastology for age. Right Ventricle Normal right ventricle. Atria The left atrium is mildly enlarged. Normal right atrium. Mitral Valve Trivial mitral valve insufficiency. Tricuspid Valve Trivial tricuspid valve insufficiency. Right ventricular systolic pressure estimated to be 37 mmHg. Aortic Valve There is no aortic stenosis. No aortic valve insufficiency. Pulmonic Valve The pulmonic valve is not well visualized. Great Vessels Normal sized aortic root. Pericardium/Pleural No pericardial effusion. MMode/2D Measurements & Calculations LVIDd: 4.4 cm IVSd: 0.81 cm LVOT diam: 2.0 cm LVIDs: 2.5 cm LVPWd: 1.0 cm LVOT area: 3.2 cm2 RVDd: 3.3 cm FS: 42.5 % asc Aorta Diam: 3.5 cm LAV(MOD-bp): 48.1 ml LVAd ap4: 20.8 cm2 LAV(MOD-bp) Indexed: 24.5 ml/m2 LVLd ap4: 7.5 cm LAV(MOD-sp2): 49.2 ml EDV(MOD-sp4): 49.5 ml LAV(MOD-sp4): 43.4 ml EDV(sp4-el): 49.0 ml LVAs ap4: 11.6 cm2 LVLs ap4: 6.5 cm ESV(MOD-sp4): 18.1 ml ESV(sp4-el): 17.5 ml EF(MOD-sp4): 63.4 % EF(sp4-el): 64.3 % LVAd ap2: 19.9 cm2 SV(MOD-sp4): 31.4 ml SV(MOD-sp2): 29.8 ml LVLd ap2: 7.1 cm EDV(MOD-sp2): 46.7 ml EDV(sp2-el): 47.4 ml LVAs ap2: 10.7 cm2 LVLs ap2: 5.9 cm ESV(MOD-sp2): 16.9 ml ESV(sp2-el): 16.5 ml EF(MOD-sp2): 63.8 % SV(sp4-el): 31.5 ml Ao sinus diam: 3.[address] Junction: 2.5 cm LA dimension(2D): 4.3 cm LA A4 area: 16.7 cm2 RA A4 area: 10.6 cm2 TAPSE: 2.2 cm Time Measurements MV dec time: 0.30 sec Doppler Measurements & Calculations MV E max yobany: 77.4 cm/sec Lat Peak E' Yobany: 11.2 cm/sec Med Peak E' Yobany: 8.6 cm/sec MV A max yobany: 84.5 cm/sec E/E' lat: 6.9 E/E' med: 9.0 MV E/A: 0.92 MV dec slope: 257.2 cm/sec2 Ao V2 max: 167.2 cm/sec LV V1 max: 113.7 cm/sec Ao max P.2 mmHg LV V1 max P.2 mmHg Ao V2 mean: 107.0 cm/sec LV V1 mean P.7 mmHg Ao mean P.0 mmHg LV V1 mean: 78.9 cm/sec Ao V2 VTI: 31.2 cm LV V1 VTI: 25.2 cm AV (velocity ratio): 0.81 JOHNATHON(I,D): 2.6 cm2 JOHNATHON(V,D): 2.2 cm2 SV(LVOT): 80.6 ml PA V2 max: 105.4 cm/sec TR max yobany: 232.3 cm/sec PA max PG (full): 2.1 mmHg TR max P.6 mmHg ECHO/Echo Complete Interpretation Summary The left ventricular ejection fraction is 70 %. Right ventricular systolic pressure estimated to be 37 mmHg. Incidental finding of hepatic cyst. Consider ultrasound liver for further evalu ation. Ordering Physician: Paula Barrera Referring Physician: Paula Barrera Performed By: Julia Culp CEE
--- OUTSIDE RECORDS SUMMARY | 2024-05-03 16:34 | XMS RPT_ITS | CCD ---
Author Organization [facility] Care Team Providers Care Television News Anchor Name Role Phone Franklin Arias MD Primary Care Provider FRANKLIN ARIAS Referring Unavailable FRANKLIN ARIAS Primary Care Unavailable FRANKLIN ARIAS Referring Unavailable FRANKLIN ARIAS Primary Care Unavailable GILL HOOVER Attending Unavailable FRANKLIN ARIAS Primary Care Unavailable FRANKLIN ARIAS Referring Unavailable FRANKLIN ARIAS Primary Care Unavailable VETOSHANTAL ROGERS Referring Unavailable JUANY LAWRENCE Referring Unavailable SHANTAL RHODES Attending Unavailable FRANKLIN ARIAS Primary Care Unavailable FRANKLIN ARIAS Primary Care Unavailable JUANY LAWRENCE Attending Unavailable FRANKLIN ARIAS Primary Care Unavailable JUANY LAWRENCE Referring Unavailable FRANKLIN ARIAS Primary Care Unavailable JUANY LAWRENCE Attending Unavailable FRANKLIN ARIAS Primary Care Unavailable KNJUANY EDUARDO Referring Unavailable FRANKLIN ARIAS Primary Care Unavailable FRANKLIN ARIAS Primary Care Unavailable VETOSUE, SHANTAL Attending Unavailable SHANTAL RHODES Referring Unavailable FRANKLIN ARIAS Primary Care Unavailable FRANKLIN ARIAS Attending Unavailable Franklin Arias MD Primary Care Provider [phone] Allergies Allergy Classification Reported Allergen(s) Allergy Type Date of Onset Reaction(s) Facility Angiotensin Converting Enzyme (DANISHA) Inhibitors (1 source) Lisinopril Drug Allergy 4 Cough [facility] NSAIDs (1 source) Ibuprofen Drug Allergy 5 Intolerance, GI Upset [facility] Opioid Agonists (3 sources) Codeine Drug Allergy 5 Intolerance, Cough, Vomiting, Shortness of Breath, GI Upset, Anaphylaxis, Other: See Comments [facility] Promethazine (1 source) Promethazine Drug Allergy 4 Itching [facility] (20 sources) Codeine; Translations: [CODEINE] Drug Allergy 5 Intolerance [facility] Work Phone: (20 sources) HYDROcodone; Translations: [HYDROCODONE] Drug Allergy 5 Cough, Vomiting, Shortness of Breath [facility] Work Phone: (20 sources) Ibuprofen; Translations: [IBUPROFEN] Drug Allergy 5 Intolerance, GI Upset [facility] Work Phone: (20 sources) Lisinopril; Translations: [LISINOPRIL] Drug Allergy 4 Cough [facility] Work Phone: (20 sources) oxyCODONE; Translations: [OXYCODONE] Drug Allergy 4 GI Upset, Anaphylaxis, Other: See Comments [facility] Work Phone: (20 sources) Promethazine; Translations: [PROMETHAZINE] Drug Allergy 4 Itching [facility] Work Phone: (20 sources) Salicylic Acid; Translations: [SALICYLATES] Drug Allergy 5 Hives [facility] Work Phone: (20 sources) Salicylate product Drug Allergy 5 [facility] Work Phone: Medications Current Medications Medication Drug Class(es) Dates Sig (Normalized) Sig (Original) amoxicillin 875 mg / clavulanate 125 mg oral tablet (1 source) Penicillin-class Antibacterial Start: 11-05-2022 End: 11-10-2022 take 1 tablet by mouth twice daily amoxicillin-clavula barb acid (AUGMENTIN) 875-125 mg per tablet Take 1 tablet by mouth twice daily for 5 days. 10 tablet 0 11/05/2022 11/10/2022 Active Comment on above: Take 1 tablet by nilda twice daily for 5 days. atorvastatin 80 mg oral tablet (20 sources) HMG-CoA Reductase Inhibitor Start: 11-07-2023 take 1 tablet by mouth once daily at bedtime for hyperlipidemia atorvastatin (LIPITOR) 80 mg tablet Indications: Mixed hyperlipidemia Take 1 tablet by mouth daily at bedtime. For cholesterol. 90 tablet 1 11/07/2023 Active Start: 10-14-2022 End: 11-07-2023 take 1 tablet by mouth once daily at bedtime for hyperlipidemia atorvastatin (LIPITOR) 40 mg tablet Indications: Mixed hyperlipidemia Take 1 tablet by mouth daily at bedtime. For cholesterol. 90 tablet 1 04/14/2023 11/04/2023 Discontinued Start: 01-29-2021 End: 10-14-2022 take 1 tablet by mouth once daily at bedtime for hyperlipidemia atorvastatin (LIPITOR) 20 mg tablet Take 1 tablet by mouth daily at bedtime. For cholesterol. 90 tablet 1 08/06/2022 10/14/2022 Discontinued Comment on above: Take 1 tablet by [facility] daily at bedtime. For cholesterol. benzonatate 100 mg oral capsule (4 sources) Non-narcotic Antitussive Start: End: take 1 capsule by mouth every eight hours as needed for cough and cough benzonatate (TESSALON PERLES) 100 mg capsule Indications: Acute cough Take 1 capsule by mouth three times daily as needed for up to 7 days. 21 capsule 0 03/21/2023 03/28/2023 Active Start: 12-06-2021 End: 12-21-2021 take 1 capsule by mouth every eight hours as needed for cough benzonatate (TESSALON PERLE) 100 mg capsule Indications: URI, acute Take 1 capsule by mouth every 8 hours as needed for cough for up to 15 days. 30 capsule 0 12/06/2021 12/21/2021 Active Comment on above: Take 1 capsule by mo ut every 8 hours as needed for cough for up to 15 days. Take 1 capsule by mo ut three times daily as needed for up to 7 days. cholecalciferol 0.01 mg oral tablet (8 sources) Vitamin D take 1 capsule by mouth once daily cholecalciferol (VITAMIN D-3) 400 unit tab Take 400 Units by mouth two times a day. Take 1 capsule by mouth daily for liver fibrosis 0 Active ergocalciferol 1.25 mg oral capsule (20 sources) Provitamin D2 Compound Start: 08-21-19 End: 10-03-19 22 take 1 capsule by mouth every week ergocalciferol 50,000 unit capsule (VITAMIN D2, DRISDOL) Take 1 capsule by mouth one time a week. 12 capsule 3 10/02/2021 Active Comment on above: Take 1 capsule by mo [facility] one time a week. fluconazole 150 mg oral tablet (2 sources) Azole Antifungal Start: 10-09-19 End: 10-09-19 fluconazole (DIFLUCAN) 150 mg tablet Take 1 tablet by mouth one time only for 1 dose. Repeat in 3 days as needed. 2 tablet 1 10/08/2022 10/08/2022 Active Start: 10-01-2021 End: 10-01-2021 fluconazole (DIFLUCAN) 150 m g tablet Take 1 tablet by mouth one time only for 1 dose. Repeat in 3 days as needed. 2 tablet 0 10/01/2021 10/01/2021 Active Comment on above: Take 1 tablet by [facility] one time only for 1 dose. Repeat in 3 days as needed. iv contrast (will be provided with radiology test) (2 sources) Start: 10-16-2021 End: 10-17-2021 iv contrast (will be provided with radiology test) Indications: Abnormal results of liver function studies MRI PANC/CHRISTOS Inject, intravenously, once for 1 dose. No IV access, insert saline lock prior to the beginning of sedation, infusion, injection of imaging exam. Discontinue saline lock post exam. If Pt. has a central line or IVAD, may access for administration according to line specific nursing protocol. Once exam is complete flush line and de-access according to line specific nursing protocol in the MR contrast administration guidelines link. 1 Each 0 10/16/2021 10/17/2021 Active Start: 10-16-2021 End: 10-17-2021 iv contrast (will be provide d with radiology test) MRI Liver Inject, intravenously, once for 1 dose. No IV access, insert saline lock prior to the beginning of sedation, infusion, injection of imaging exam. Discontinue saline lock post exam. If Pt. has a central line or IVAD, may access for administration according to line specific nursing protocol. Once exam is complete flush line and de-access according to line specific nursing protocol in the MR contrast administration guidelines link. 1 Each 0 10/16/2021 10/17/2021 Active Comment on above: MRI PANC/CHRISTOS Inject, intravenously, once for 1 dose. No IV access, insert saline lock prior to the beginning of sedation, infusion, injection of imaging exam. Discontinue saline lock post exam. If Pt. has a central line or IVAD, may access for administration according to line specific nursing protocol. Once exam is complete flush line and de-access according to line specific nursing protocol in the MR contrast administration guidelines link. MRI Liver Inject, in travenously, once for 1 dose. No IV access, insert saline lock prior to the beginning of sedation, infusion, injection of imaging exam. Discontinue saline lock post exam. If Pt. has a central line or IVAD, may access for administration according to line specific nursing protocol. Once exam is complete flush line and de-access according to line specific nursing protocol in the MR contrast administration guidelines link. loratadine 10 mg oral tablet (20 sources) Start: 10-09-19 End: 03-21-20 take 1 tablet by mouth once daily loratadine (CLARITIN) 10 mg tablet Indications: Acute cough Take 1 tablet by mouth once daily. 30 tablet 11 03/21/2023 Active Comment on above: Take 1 tablet by nilda th once daily. metFORMIN hydrochloride 500 mg oral tablet (12 sources) Biguanide Start: 08-12-19 take 1 tablet by mouth every twelve hours metFORMIN (GLUCOPHAGE) 500 mg tablet Take 1 tablet by mouth every 12 hours. 0 08/12/2023 Active Comment on above: Take 1 tablet by nilda th every 12 hours. potassium chloride 10 meq extended release oral tablet (16 sources) Start: 04-15-20 End: 11-04-19 take 1 tablet by mouth once daily at breakfast potassium chloride (K-TAB) 10 mEq tablet Take 1 tablet by mouth daily with breakfast. 90 tablet 0 11/04/2023 Active Comment on above: Take 1 tablet by nilda th daily with breakfast. predniSONE 10 mg oral tablet (1 source) Start: 05-20-20 End: 05-27-20 take 4 tablets by mouth once daily, then take 2 tablets by mouth once daily, then take 1 tablet by mouth once daily predniSONE (DELTASONE) 10 mg tablet Indications: Pain in both knees, unspecified chronicity Take 4 tablets by mouth once daily for 3 days, THEN 2 tablets once daily for 3 days, THEN 1 tablet once daily for 1 day. Take with food.. 19 tablet 0 05/20/2022 05/27/2022 Active Comment on above: Take 4 tablets by mo [facility] once daily for 3 days, THEN 2 tablets once daily for 3 days, THEN 1 tablet once daily for 1 day. Take with food.. ursodiol 300 mg oral capsule (20 sources) Bile Acid Start: 04-09-20 ursodiol (ACTIGALL) 300 mg capsule Take 1 capsule by mouth twice daily. Per Gastro: Dr. Corona 04/09/2022 Active Comment on above: Take 1 capsule by [facility] twice daily. Per Gastro: Dr. Corona vitamin e 268 mg oral capsule (20 sources) Start: 04-09-20 Vitamin E, dl, acetate, (VITAMIN E) 400 unit capsule Take 1 capsule by mouth twice daily. Per Gastro: Dr. Corona 04/09/2022 Active Comment on above: Take 1 capsule by [facility] twice daily. Per Gastro: Dr. Corona Completed/Discontinued Medications Medication Drug Class(es) Dates Sig (Normalized) Sig (Original) betamethasone 3 mg/ml / betamethasone acetate 3 mg/ml injectable suspension (1 source) Corticosteroid Start: 08-25-2023 End: 08-25-2023 betamethasone acetate-betamethason e sodium phosphate 6 mg injection (CELESTONE) cyclobenzaprine hydrochloride 10 mg oral tablet (20 sources) Muscle Relaxant Start: 10-08-2022 End: 11-04-2023 take 1 tablet by mouth every eight hours as needed cyclobenzaprine (FLEXERIL) 10 mg tablet Take 1 tablet by mouth three times daily as needed for muscle spasm. 20 tablet 10/08/2022 11/04/2023 Discontinued Start: 10-01-2021 End: 01-08-2022 take 1 tablet by mouth every eight hours as needed cyclobenzaprine (FLEXERIL) 10 mg tablet Take 1 tablet by mouth three times daily as needed for muscle spasm. 10 tablet 0 10/01/2021 01/08/2022 Discontinued Comment on above: Take 1 tablet by [facility] three times daily as needed for muscle spasm. diclofenac sodium 0.01 mg/mg topical gel (20 sources) Nonsteroidal Anti-inflammatory Drug Start : 06-03 End: 11-10 apply 4 g topically four times daily diclofenac (VOLTAREN) 1 % topical gel Indications: Pain in both knees, unspecified chronicity Apply 4 g to affected area four times daily. 4 g 4 04/14/2023 11/11/2023 Discontinued Comment on above: Apply 4 g to affecte d area four times daily. hydroCHLOROthiazide 25 mg oral tablet (20 sources) Thiazide Diuretic Start : 04-09 End: 11-03 take 1 tablet by mouth once daily hydroCHLOROthiazide (HYDRODIURIL, ESIDRIX) 25 mg tablet Take 1 tablet by mouth once daily. 30 tablet 5 04/09/2022 10/08/2022 Discontinued Start: 12-25-2021 End: 04-09-2022 take 1 capsule by mouth once daily hydroCHLOROthiazide (HYDRODIURIL, ESIDRIX) 12.5 mg capsule Take 1 capsule by mouth once daily. 30 capsule 5 12/25/2021 04/09/2022 Discontinued (Changing Therapy/Dosage Form) Comment on above: Take 1 capsule by mo [facility] once daily. Take 1 tablet by nilda once daily. 10 ml lidocaine hydrochloride 10 mg/ml injection (1 source) Antiarrhythmic, Amide Local Anesthetic Start: 4 End: 4 lidocaine (PF) 10 mg/mL (1 %) 4 mL injection (XYLOCAINE) losartan potassium 100 mg oral tablet (20 sources) Angiotensin 2 Receptor Olivia Start: 2 End: 4 take 1 tablet by mouth once daily losartan (COZAAR) 100 mg tablet Indications: Essential hypertension Take 1 tablet by mouth once daily. 90 tablet 1 04/14/2023 08/18/2023 Discontinued Start: 01-29-2021 End: 10-01-2021 take 1 tablet by mouth once daily losartan (COZAAR) 50 mg tablet Take 1 tablet by mouth once daily. 90 tablet 1 10/01/2021 10/01/2021 Discontinued Comment on above: Take 1 tablet by nilda once daily. pantoprazole 40 mg delayed release oral tablet (20 sources) Proton Pump Inhibitor Start: 01-30-20 End: 11-04-19 take 1 tablet by mouth twice daily before mealtime pantoprazole DR (PROTONIX) 40 mg tablet Take 1 tablet by mouth twice daily. Take on empty stomach, 1/2 hr before meal. 180 tablet 1 01/08/2022 08/06/2022 Discontinued Comment on above: Take 1 tablet by nilda th twice daily. Take on empty stomach, 1/2 hr before meal. Take 1 tablet by nilda th two times a day. Take on empty stomach, 1/2 hr before meal. perflutren lipid microspheres 1.3 mL in NaCl (PF) 0.9% 10 mL injection (DEFINITY) (20 sources) Start: 02-06-20 End: 05-07-20 perflutren lipid microspheres 1.3 mL in NaCl (PF) 0.9% 10 mL injection (DEFINITY) 125 ml sodium chloride 9 mg/ml prefilled syringe (20 sources) Start: 02-06-20 End: 05-07-20 sodium chloride 0.9 % (flush) 10 mL (BD POSIFLUSH) vitamin b12 1 mg oral tablet (20 sources) Vitamin B12 Start: 10-03-19 End: 08-06-19 take 1 tablet by mouth once daily cyanocobalamin (VITAMIN B-12) 1,000 mcg tab Take 1 tablet by mouth once daily. 90 tablet 3 10/02/2021 08/06/2022 Discontinued Comment on above: Take 1 tablet by nilda once daily. Problems Active Problems Problem Classification Problem Date Documented Date Episodic/Chronic Administrative/socia l admission (9 sources) Advance directive discussed with patient; Translations: [Other specified counseling] Onset: 11-04-2023 11-04-2023 Episodic Disorders of lipid metabolism (20 sources) Mixed hyperlipidemia; Translations: [Mixed hyperlipidemia] Onset: 03-22-2013 Chronic Esophageal disorders (20 sources) Laryngopharyngeal reflux; Translations: [Gastro-esophageal reflux disease without esophagitis] Onset: 05-11-2013 Chronic Essential hypertension (20 sources) Essential hypertension; Translations: [Essential (primary) hypertension] Onset: 03-09-2013 Chronic Fluid and electrolyte disorders (2 sources) Hypokalemia; Translations: [Hypokalemia] Episodic Genitourinary congenital anomalies (2 sources) Disorder of vagina; 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] Onset: 11-10-2023 11-04-2023 Chronic Nutritional deficiencies (20 sources) Vitamin D deficiency; Translations: [Vitamin D deficiency, unspecified] Onset: 10-01-2021 Chronic Occlusion or stenosis of precerebral arteries (20 sources) Bilateral stenosis of carotid arteries; Translations: [Occlusion and stenosis of bilateral carotid arteries] Onset: 12-30-2016 Chronic Other aftercare (1 source) Other alf (current) drug therapy; Translations: [Medication management] Onset: 11-04-2023 Episodic Other and unspecified benign neoplasm (4 sources) History of polyp of colon; Translations: [Personal history of colonic polyps] Episodic Other and unspecified benign neoplasm (1 source) Tubular adenoma ; Translations: [Benign neoplasm, unspecified site] Episodic Other connective tissue disease (3 sources) Cramp in lower limb; Translations: [Cramp and spasm] Episodic Other connective tissue disease (2 sources) Bursitis of right shoulder; Translations: [Bursitis of right shoulder] 08-25-2023 Episodic Other female genital disorders (20 sources) [...] cough] 03-21-2023 Episodic Other non-traumatic joint disorders (4 sources) Pain in right knee; Translations: [Pain in joint, lower leg] Onset: 04-14-2023 Episodic Other non-traumatic joint disorders (5 sources) Pain in right shoulder; Translations: [Pain in joint, shoulder region] Onset: 08-25-2023 08-25-2023 Episodic Other nutritional; endocrine; and metabolic disorders (20 sources) Simple obesity ; Translations: [Other obesity due to excess calories] Onset: 08-31-2015 01-29-2021 Chronic Other nutritional; endocrine; and metabolic disorders (20 sources) Obese class II; Translations: [Obesity, unspecified] Onset: 08-31-2015 Chronic Other nutritional; endocrine; and metabolic disorders (12 sources) Obese class I; Translations: [Obesity, unspecified] Onset: 08-31-2015 11-04-2023 Chronic Other nutritional; endocrine; and metabolic disorders (1 source) Obesity, unspecified; Translations: [Obesity, Class II, BMI 35-39.9] Onset: 04-09-2022 Chronic Other screening for suspected conditions (not mental disorders or infectious disease) (20 sources) Patient encounter status; Translations: [Encounter for screening for diabetes mellitus] Onset: 10-01-2021 Episodic Other upper respiratory infections (1 source) Bacterial sinusitis; Translations: [Chronic sinusitis, unspecified] Chronic Other upper respiratory infections (1 source) Acute upper respiratory infection; Translations: [Acute upper respiratory infection, unspecified] Episodic Prolapse of female genital organs (3 sources) Uterovaginal prolapse; Translations: [Uterovaginal prolapse, unspecified] 11-10-2023 Chronic Residual codes; unclassified (1 source) Asymptomatic menopausal state; Translations: [Asymptomatic menopause] Onset: 11-04-2023 Episodic Spondylosis; intervertebral disc disorders; other back problems (1 source) Degeneration of cervical intervertebral disc; Translations: [Other cervical disc degeneration, unspecified cervical region] 08-26-2023 Chronic Spondylosis; intervertebral disc disorders; other back problems (7 sources) Chronic low back pain; Translations: [Chronic midline low back pain without sciatica] Onset: 08-25-2023 Episodic Unclassified (1 source) Liver fibrosis; Translations: [Liver fibrosis] Onset: 01-29-2022 Past or Other Problems Problem Classification Problem Date Documented Da te Episodic/Chronic Abdominal pain (11 sources) Right upper quadrant pain; Translations: [Right upper quadrant pain] Onset: 02-14-2014 Resolved: 12-30-2016 12-30-2016 Episodic Biliary tract disease (11 sources) Leakage of bile; Translations: [Disease of biliary tract, unspecified] Onset: 04-01-2014 Resolved: 12-30-2016 12-30-2016 Chronic Diabetes mellitus without complication (20 sources) Hyperglycemia; Translations: [Impaired fasting glucose] Onset: 10-02-2021 Episodic Immunizations and screening for infectious disease (6 sources) Vaccination needed; Translations: [Encounter for immunization] Onset: 04-14-2023 Episodic Nutritional deficiencies (20 sources) Serum vitamin [...] other serum enzymes] Onset: 10-02-2021 Episodic Other non-traumatic joint disorders (1 source) Pain in left knee; Translations: [Pain in both knees, unspecified chronicity] Onset: 04-14-2023 Episodic Pancreatic disorders (not diabetes) (20 sources) Cyst of pancreas; Translations: [Cyst of pancreas] Onset: 11-09-2021 Episodic Screening and history of mental health and substance abuse codes (20 sources) Ex-smoker; Translations: [Personal history of nicotine dependence] Onset: 05-11-2013 Episodic Results Test Name Value Interpretation Reference Range Facility [facility] 12-16-2023 [facility] HNO ID: [id number] Author: COORDINATOR, MAMMOGRAPHY, ? Service: ? Author Type: Physician Type: Letter Filed: 12/16/2023 10:16 Note Text: December 16, 2023 PID: [id number] Isabel Sahni [address] [place] [address] Dear Ms. Sahni, We are pleased to inform you that the results of your recent breast imaging exam on 12/15/2023 are normal. Early detection of cancer is very important. We also understand recommendations regarding breast cancer screening are controversial. Please discuss with your primary care provider which strategy is best for you and whether a mammogram is right for you. Your imaging studies and report will be kept on file at [facility] as part of your permanent medical record and are available for your continuing care. Thank you for allowing us to help in meeting your health care needs. Sincerely, Dr. Mustafa Interpreting Radiologist [facility] (Normal over 40) Normal [facility] 12-16-2023 CNPN Telephone (FAMPWS) -------- ISABEL SAHNI ([id number]) 1955 F Date Time Provider Department 12/16/23 FRANKLIN ARIAS During your visit today, we recorded the following information about you: Franklin Arias MD 12/16/2023 12:52 PM Signed Let patient know mammogram was ok Patricia Rasheed LPN 12/16/2023 2:00 PM Signed Pt notified of mgm results AND voiced understanding. Patricia Rasheed LPN Allergies As of Date: 12/16/2023 Noted Allergy Reaction ASA (SALICYLATES) 04/29/2005 4 - Hives PHENERGAN (PROMETHAZINE) 04/14/2014 9 - Itching Comments: suppositiries CODEINE 04/29/2005 5 - Intolerance HYDROCODONE 04/29/2005 3 - Cough 11 - Vomiting 12 - Shortness of Breath IBUPROFEN 04/29/2005 5 - Intolerance 8 - GI Upset LISINOPRIL 05/02/2014 3 - Cough OXYCODONE 03/07/2014 8 - GI Upset 10 - Anaphylaxis 14 - Other: See Comments Comments: Body aches. Hot flashes Date Reviewed: 11/10/2023 Reviewed by: Gill Hoover APRN.DIVORCE MEDIATOR - Fully Assessed Prescriptions as of 12/16/2023 - diclofenac (VOLTAREN) 1 % topical gel Apply 4 g to affected area four times daily. - atorvastatin (LIPITOR) 80 mg tablet Take 1 tablet by mouth daily at bedtime. For cholesterol. - cholecalciferol (VITAMIN D-3) 400 unit tab Take 400 Units by mouth two times a day. Take 1 capsule by mouth daily for liver fibrosis - pantoprazole DR (PROTONIX) 40 mg tablet Take 1 tablet by mouth two times a day. Take on empty stomach, 1/2 hr before meal. - losartan (COZAAR) 100 mg tablet Take 1 tablet by mouth once daily. - hydroCHLOROthiazide 25 mg tablet Take 1 tablet by mouth once daily. - potassium chloride (K-TAB) 10 mEq tablet Take 1 tablet by mouth daily with breakfast. - metFORMIN (GLUCOPHAGE) 500 mg tablet Take 1 tablet by mouth every 12 hours. - loratadine (CLARITIN) 10 mg tablet Take 1 tablet by mouth once daily. - cyanocobalamin (VITAMIN B-12) 1,000 mcg tab Take 1 tablet by mouth once daily. - Vitamin E, dl, acetate, (VITAMIN E) 400 unit capsule Take 1 capsule by mouth twice daily. Per Gastro: Dr. Corona - ursodiol (ACTIGALL) 300 mg capsule Take 1 capsule by mouth twice daily. Per Gastro: Dr. Corona - ergocalciferol 50,000 unit capsule (VITAMIN D2, DRISDOL) Take 1 capsule by mouth one time a week. Problem List As Of Date 12/16/2023 Noted Resolved Essential hypertension [I10] 03/09/2013 Mixed hyperlipidemia [E78.2] 03/22/2013 LPRD (laryngopharyngeal reflux disease) [K21.9] 05/11/2013 Former smoker [Z87.891] 05/11/2013 Right upper quadrant pain [R10.11] 02/14/2014 12/30/2016 Bile leak [K83.9] 04/01/2014 12/30/2016 Obesity, Class I, BMI 30-34.9 [E66.9] 08/31/2015 Carotid stenosis, bilateral [I65.23] 12/30/2016 Well adult exam [Z00.00] 07/17/2020 11/04/2023 Tubular adenoma polyp of rectum [D12.8] 07/17/2020 Endometrial hyperplasia without atypia [N85.00] 12/18/2020 Vitamin D deficiency [E55.9] 10/01/2021 Elevated fasting glucose [R73.01] 10/02/2021 Low serum vitamin B12 [E53.8] 10/02/2021 Pancreatic cyst [K86.2] 11/09/2021 Elevated alkaline phosphatase level [R74.8] 12/05/2021 Liver fibrosis [K74.00] 01/16/2022 Encounter for Medicare annual wellness exam [Z0*11/04/2023 Advance directive discussed with patient [Z71.8*11/04/2023 Medication management [Z79.899] 11/04/2023 Encounter Status:Closed by PATRICIA RASHEED on 12/16/23 Normal [facility] SCREENINGon 12-15-2023 [facility] SCREENING * * *Final Report* * * DATE OF EXAM: Dec 15 2023 10:47AM WRW [id number] - [facility] SCREENING / PROCEDURE REASON: Encounter for screening mammogram for breast cancer * * * * Physician Interpretation * * * * RESULT: #[id number] - [facility] SCREENING BILATERAL DIGITAL SCREENING MAMMOGRAM WITH CAD: 12/15/2023 HISTORY: /Screening Mammogram - patient reports NO breast symptoms /priors available for comparison Encounter For Screening Mammogram For Breast Cancer. RESULT: TECHNIQUE: The study was acquired using full field digital technology and interpreted from soft copy. Current study was also evaluated with a Computer Aided Detection (CAD). Comparison is made to exams dated: 12/10/2022 mammogram and 10/29/2021 mammogram - [facility]. There are scattered areas of fibroglandular density. No significant masses, calcifications, or other findings are seen in either breast. There has been no significant interval change. IMPRESSION: NEGATIVE There is no mammographic evidence of malignancy. A 1 year screening mammogram is recommended. Johanne Mustafa M.D., jr/pipe:12/16/2023 10:16:11 International Trade Compliance Manager(s): RT Marcela(Olga)(Yu), [facility] letter sent: Normal over 40 Mammogram BI-RADS: 1 Negative Multiple national specialty organizations have released breast cancer screening guidelines for women at average risk for developing breast cancer - guidelines that are based on both evidence and opinion, yet differ on when to start and how often to screen for breast cancer. With representation from Breast Imaging, Internal Medicine, Women's Health, Family Medicine, and Medical/Surgical Oncology, the [facility] has carefully reviewed the data and reached the following consensus: 1) All women should engage in shared decision-making with their providers to decide when to start and how often to screen; 2) All women should have the opportunity to start screening mammography at age 40; 3) For women ages 45-55, we recommend annual screening mammograms; 4) For women ages 55 and over, we support both the transition from an annual to a biennial interval if this aligns more with patient's values and preferences, or continuation with annual screening; 5) All women should discuss with their providers when to stop screening mammograms. Motion Pictures Cartoonist: Pipe Transcribe Date/Time: Dec 15 2023 10:23A Dictated by: JOHANNE MUSTAFA MD This examination was interpreted and the report reviewed and electronically signed by: JOHANNE MUSTAFA MD on Dec 16 2023 10:16AM EST [id number] Normal [facility] CNOVon 11-10-2023 CNOV Office Visit (OBGYWM ) -------- BORAISABEL ([id number]) 1955 F Date Time Provider Department 11/10/23 10:45 AM GILL HOOVER OBGYWYu During your visit today, we recorded the following information about you: Blood pressure Weight 126/78 94.3 kg Gill Hoover, [employer].DIVORCE MEDIATOR 11/10/2023 11:07 AM Signed Isabel Yu Sahni is a 68 year old female who presents for problem visit of prolapse. HPI: Isabel noticed something hanging out of her vagina 2-4 months. She denies any bladder concerns. She denies bleeding. Her noticed it right before intercourse. 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 OB History T2 L1 SAB0 IAB0 Ectopic0 Multiple0 Live Births0 Comment: One child is . Rn Telemetry History LMP: 03/12/2010, Postmenopausal Age at Menarche: Age at First : Age at Menopause: Rn Telemetry History Comments: Sexual Activity: Yes; Male Contraception: No contraception data on record PAST MEDICAL HISTORY Diagnosis Date Advance directive discussed with patient 11/04/2023 Discussed 10/2023: Has packets Arthritis Carotid stenosis, bilateral 12/30/2016 US 02/2021 20-40% b/l Elevated alkaline phosphatase level 12/05/[address] Corona Elevated fasting glucose 10/02/2021 Elevated vitamin B12 level 10/02/2021 Encounter for Medicare annual wellness exam 11/04/2023 Medicare Part B: 07/14/2023 Last done: 10/2023 Endometrial hyperplasia without atypia 12/18/2020 December 18, 2020 Elects for repeat EMB in 6 months. Blanca Harley MD Essential hypertension 03/09/2013 Former smoker 05/11/2013 Gallstones 03/03/2014 Liver fibrosis 01/16/2022 Seeing Gastro- dr. corona LPRD (laryngopharyngeal reflux disease) 05/11/[address] Corona Medication management 11/04/2023 Mixed hyperlipidemia 03/22/2013 Obesity, Class I, BMI 30-34.9 08/31/2015 Obesity, Class II, BMI 35-39.9 08/31/2015 Pancreatic [...] DILAT SPX 03/13/2010 ERCP 2014 with stent ESOPHAGOGASTRODUODENOSCO PY TRANSORAL DIAGNOSTIC 05/05/2014 EGD ESOPHAGOGASTRODUODENOSCO PY TRANSORAL DIAGNOSTIC 09/14/2015 EGD HYSTEROSCOPY BX ENDOMETRIUMAND/POLYPC W/WO DANDC N/A 11/30/2020 resection of endometrial polyps LAPAROSCOPY SURG CHOLECYSTECTOMY 03/03/2014 PAST SURGICAL HISTORY OF 03/17/2007 Left knee surgery TONSILLECTOMY HX FAMILY HISTORY Problem Relation Age of Onset Diabetes Mother Alcohol/Drug Daughter Diabetes Brother Diabetes Brother Social History Tobacco Use Smoking status: Former Years: 25 Types: Cigarettes Quit date: 2012 Years since quittin.3 Smokeless tobacco: Never Vaping Use Vaping Use: Never used Substance Use Topics Alcohol use: No Drug use: No Current Outpatient Medications Medication Sig atorvastatin (LIPITOR) 80 mg tablet Take 1 tablet by mouth daily at bedtime. For cholesterol. cholecalciferol (VITAMIN D-3) 400 unit tab Take 400 Units by mouth two times a day. Take 1 capsule by mouth daily for liver fibrosis pantoprazole DR (PROTONIX) 40 mg tablet Take 1 tablet by mouth two times a day. Take on empty stomach, 1/2 hr before meal. losartan (COZAAR) 100 mg tablet Take 1 tablet by mouth once daily. hydroCHLOROthiazide 25 mg tablet Take 1 tablet by mouth once daily. potassium chloride (K-TAB) 10 mEq tablet Take 1 tablet by mouth daily with breakfast. metFORMIN (GLUCOPHAGE) 500 mg tablet Take 1 tablet by mouth every 12 hours. diclofenac (VOLTAREN) 1 % topical gel Apply 4 g to affected area four times daily. loratadine (CLARITIN) 10 mg tablet Take 1 tablet by mouth once daily. cyanocobalamin (VITAMIN B-12) 1,000 mcg tab Take 1 tablet by mouth once daily. Vitamin E, dl, acetate, (VITAMIN E) 400 unit capsule Take 1 capsule by mouth twice daily. Per Gastro: Friend ursodiol (ACTIGALL) 300 mg capsule Take 1 capsule by mouth twice daily. Per Gastro: Friend ergocalciferol 50,000 unit capsule (VITAMIN D2, DRISDOL) Take 1 capsule by mouth one time a week. No current facility-administered medications for this visit. Allergies As of Date: 11/10/2023 Allergen Noted Reaction ASA [SALICYLATES] 04/29/2005 Hives PHENERGAN [PROMETHAZINE] 04/14/2014 Itching CODEINE 04/29/2005 Intolerance HYDROCODONE 04/29/2005 Cough, Vo (more content not included)... Normal [facility] Atul 11-10-2023 LAZARON Telephone (OBGYWM) -------- ISABEL SANHI ([id number]) 1955 F Date Time Provider Department 11/10/23 GILL HOOVER During your visit today, we recorded the following information about you: Gill Hoover APRN.CNP 11/10/2023 1:28 PM Signed Please let patient know I reviewed case with RR who recommends referral to uro information systems manager for evaluation and possible surgery. Please assist in scheduling. Gill Hoover APRN.Di Phelan RN 11/10/2023 2:08 PM Signed Patient notified and voiced understanding. Transferred to [facility] in uro/information systems manager to schedule appointment. Di Crockett RN Allergies As of Date: 11/10/2023 Noted Allergy Reaction ASA (SALICYLATES) 04/29/2005 4 - Hives PHENERGAN (PROMETHAZINE) 04/14/2014 9 - Itching Comments: suppositiries CODEINE 04/29/2005 5 - Intolerance HYDROCODONE 04/29/2005 3 - Cough 11 - Vomiting 12 - Shortness of Breath IBUPROFEN 04/29/2005 5 - Intolerance 8 - GI Upset LISINOPRIL 05/02/2014 3 - Cough OXYCODONE 03/07/2014 8 - GI Upset 10 - Anaphylaxis 14 - Other: See Comments Comments: Body aches. Hot flashes Date Reviewed: 11/10/2023 Reviewed by: Gill Hoover APRN.CNP - Fully Assessed Reason for Visit: Patient Update [1234] Primary Visit Diagnosis:Uterovaginal prolapse [N81.4] Order(s):CONSULT TO URO GYNECOLOGY [6011151] Order #: [id number]: 1 FUTURE Prescriptions as of 11/10/2023 - atorvastatin (LIPITOR) 80 mg tablet Take 1 tablet by mouth daily at bedtime. For cholesterol. - cholecalciferol (VITAMIN D-3) 400 unit tab Take 400 Units by mouth two times a day. Take 1 capsule by mouth daily for liver fibrosis - pantoprazole DR (PROTONIX) 40 mg tablet Take 1 tablet by mouth two times a day. Take on empty stomach, 1/2 hr before meal. - losartan (COZAAR) 100 mg tablet Take 1 tablet by mouth once daily. - hydroCHLOROthiazide 25 mg tablet Take 1 tablet by mouth once daily. - potassium chloride (K-TAB) 10 mEq tablet Take 1 tablet by mouth daily with breakfast. - metFORMIN (GLUCOPHAGE) 500 mg tablet Take 1 tablet by mouth every 12 hours. - diclofenac (VOLTAREN) 1 % topical gel Apply 4 g to affected area four times daily. - loratadine (CLARITIN) 10 mg tablet Take 1 tablet by mouth once daily. - cyanocobalamin (VITAMIN B-12) 1,000 mcg tab Take 1 tablet by mouth once daily. - Vitamin E, dl, acetate, (VITAMIN E) 400 unit capsule Take 1 capsule by mouth twice daily. Per Gastro: Dr. Corona - ursodiol (ACTIGALL) 300 mg capsule Take 1 capsule by mouth twice daily. Per Gastro: Dr. Corona - ergocalciferol 50,000 unit capsule (VITAMIN D2, DRISDOL) Take 1 capsule by mouth one time a week. Problem List As Of Date 11/10/2023 Noted Resolved Essential hypertension [I10] 03/09/2013 Mixed hyperlipidemia [E78.2] 03/22/2013 LPRD (laryngopharyngeal reflux disease) [K21.9] 05/11/2013 Former smoker [Z87.891] 05/11/2013 Right upper quadrant pain [R10.11] 02/14/2014 12/30/2016 Bile leak [K83.9] 04/01/2014 12/30/2016 Obesity, Class I, BMI 30-34.9 [E66.9] 08/31/2015 Carotid stenosis, bilateral [I65.23] 12/30/2016 Well adult exam [Z00.00] 07/17/2020 11/04/2023 Tubular adenoma polyp of rectum [D12.8] 07/17/2020 Endometrial hyperplasia without atypia [N85.00] 12/18/2020 Vitamin D deficiency [E55.9] 10/01/2021 Elevated fasting glucose [R73.01] 10/02/2021 Low serum vitamin B12 [E53.8] 10/02/2021 Pancreatic cyst [K86.2] 11/09/2021 Elevated alkaline phosphatase level [R74.8] 12/05/2021 Liver fibrosis [K74.00] 01/16/2022 Encounter for Medicare annual wellness exam [Z0*11/04/2023 Advance directive discussed with patient [Z71.8*11/04/2023 Medication management [Z79.899] 11/04/2023 Encounter Status:Closed by DI CROCKETT on 11/10/23 [facility] 11-06-2023 CNPN Telephone (FAMPWS) -------- ISABEL SAHNI ([id number]) 1955 F Date Time Provider Department 11/06/23 [facility] During your visit today, we recorded the following information about you: Franklin Arias MD 11/06/2023 2:50 PM Signed Let patient know her Vit D is slightly low. She is she still takes Vit D and if so how much and how often? Her B12 is low again. Is she taking the Vit B12 1000 mcg once a day? Lipid panel showed Trigs elevated at 174 (goal<150), HDL good at 54 and LDL very high at 205 (goal less then 70) this can increase risk of her liver fibrosis getting worse. See if she had been taking the Lipitor since this is worse then a year ago? These rest of her labs and UA were all ok. Yu Price, RN 11/06/2023 5:01 PM Signed Phoned patient and given provider's message below with verbalized understanding. Patient reports she is taking the vit D once daily- is not at home- so doesn't know the mg. Will call back to give that to nurse. Patient reports she is taking B12 1000 mcg once daily. Patient reports she is taking lipitor daily with no missed doses. Franklin Arias MD 11/07/2023 4:47 PM Signed Let patient know I want her to increase her B12 to two of the 1000 mcg tabs a day. I will send in a script to increase her atorvastatin to 80 mg a day. I still need to know what the strength of her Vit D is so I can give her instructions on it to improve her Vit D level. Sophia Waters MA 11/10/2023 8:45 AM Signed Left message for patient to contact office. ANASTASIYA Mims Rilee, MA 11/11/2023 1:34 PM Signed Call to pt and notified her of message below from Provider. Pt currently taking Vitamin E 400 mg. She currently takes a Vit D2 50,000 international unit(s) once weekly and a Vitamin D 400 mg once daily. Pt is currently looking through her medication to see if she has B12, if she does not find it she will update office when we call back with update for refills. Last Rx was 08/11/22. Requesting refill for Diclofenac Gel. Last Rx: 04/14/23 #4 g w/4 refills. ANASTASIYA Rodriguez Jeffrey A, MD 11/11/2023 8:35 PM Signed Let patient know refill sent in. Let patient know per our records Gastro wanted her taking 400 international unit(s) 's of Vit D twice a day not once a day. Also where is she getting the 50,000 international unit(s) Vit d from. Our last script for her was 10/02/2021? She if she found her B12 and was she taking the 1000 mcg once a day? Sophia Waters MA 11/12/2023 8:32 AM Signed Left message for patient to contact office. ANASTASIYA Mims Lori, LPN 11/18/2023 11:40 AM Signed Pt states she gets her 45907 international unit(s) of Vit D from her gastrologist. Pt states she has not found the B12 but she was taking 1000mcs daily. Pt states she has an appt with gastro today AND will get all of her meds from them straightened out. DULCE Meadows Jeffrey A, MD 11/18/2023 12:03 PM Signed Noted. Allergies As of Date: 11/06/2023 Noted Allergy Reaction ASA (SALICYLATES) 04/29/2005 4 - Hives PHENERGAN (PROMETHAZINE) 04/14/2014 9 - Itching Comments: suppositiries CODEINE 04/29/2005 5 - Intolerance HYDROCODONE 04/29/2005 3 - Cough 11 - Vomiting 12 - Shortness of Breath IBUPROFEN 04/29/2005 5 - Intolerance 8 - GI Upset LISINOPRIL 05/02/2014 3 - Cough OXYCODONE 03/07/2014 8 - GI Upset 10 - Anaphylaxis 14 - Other: See Comments Comments: Body aches. Hot flashes Date Reviewed: 11/04/2023 Reviewed by: Franklin Arias MD - Fully Assessed Reason for Visit: Results [95] Visit Diagnoses:Mixed hyperlipidemia [E78.2] Pain in both knees, unspecified chronicity [M25.561, M25.562] Order(s):atorvastatin (LIPITOR) 80 mg tabletTake 1 tablet by mouth daily at bedtime. For cholesterol.Disp: 90 tabletRfl: 1 diclofenac (VOLTAREN) 1 % topical gelApply 4 g to affected area four times daily.Disp: 4 gRfl: 4 Prescriptions as of 11/18/2023 - diclofenac (VOLTAREN) 1 % topical gel Apply 4 g to affected area four times daily. - atorvastatin (LIPITOR) 80 mg tablet Take 1 tablet by mouth daily at bedtime. For cholesterol. - cholecalciferol (VITAMIN D-3) 400 unit tab Take 400 Units by mouth two times a day. Take 1 capsule by mouth daily for liver fibrosis - pantoprazole DR (PROTONIX) 40 mg tablet Take 1 tablet by mouth two times a day. Take on empty stomach, 1/2 hr before meal. - losartan (COZAAR) 100 mg tablet Take 1 tablet by mouth once daily. - hydroCHLOROthiazide 25 mg tablet Take 1 tablet by mouth once daily. - potassium chloride (K-TAB) 10 mEq tablet Take 1 tablet by mouth daily with breakfast. - metFORMIN (GLUCOPHAGE) 500 mg tablet Take 1 tablet by mouth every 12 hours. - loratadine (CLARITIN) 10 mg tablet Take 1 tablet by mouth once daily. - cyanocobalamin (VITAMIN B-12) 1,000 mcg tab Take 1 tablet by mouth (more content not included)... Normal [facility] 25(OH)D3 SerPl-ginna 2023 25-hydroxyvitamin D3 [Mass/Vol] 28.5 ng/mL Low 31.0-80.[address] [facility] Comment on above: Order Comment: Speci men Type: BLOOD SPECIMENOrdering Facility: [facility] Address: [address] [place] [address] Result Comment: Clas sification of 25 [place] Vitamin D status: Deficiency/Insufficiency: < or = 30 ng/ml. Sufficiency/Optimal Levels: 31-80 ng/mL Toxicity: > 100 ng/mL. Test performed by chemiluminescent immunoassay. Performed By: #### 1 989-3 ####[facility] LABCLIA [id number] [place] [address] [place] CBC W Auto Differential pane l (Bld)on 11-04-2023 Basophils (Bld) [#/Vol] 0.03 10*3/uL [facility] Basophils/100 WBC (Bld) 0.7 % [facility] Differential cell count method Nom (Bld) Auto [facility] Eosinophils (Bld) [#/Vol] 0.08 10*3/uL [facility] Eosinophils/100 WBC (Bld) 1.9 % [facility] Erythrocyte distribution width (RBC) [Ratio] 12.3 % 11.5 - 15.0 % [facility] Hematocrit (Bld) [Volume fraction] 43.3 % 36.0 - 46.0 % [facility] Hemoglobin (Bld) [Mass/Vol] 14.5 g/dL 11.5 - 15.5 g/dL [facility] Immature granulocytes (Bld) [#/Vol] [facility] Immature granulocytes/100 WBC (Bld) 0.2 % [facility] Lymphocytes (Bld) [#/Vol] 1.75 10*3/uL [facility] Lymphocytes/100 WBC (Bld) 42.6 % [facility] MCH (RBC) [Entitic mass] 32.8 pg 26.0 - 34.0 pg [facility] MCHC (RBC) [Mass/Vol] 33.5 g/dL 30.5 - 36.0 g/dL [facility] MCV (RBC) [Entitic vol] 98.0 fL 80.0 - 100.0 fL [facility] Monocytes (Bld) [#/Vol] 0.39 10*3/uL [facility] Monocytes/100 WBC (Bld) 9.5 % [facility] Neutrophils (Bld) [#/Vol] 1.85 10*3/uL [facility] Neutrophils/100 WBC (Bld) 45.1 % [facility] Nucleated RBC (Bld) [#/Vol] [facility] Nucleated RBC/100 WBC (Bld) [Ratio] 0.0 % /100 WBC [facility] Platelet mean volume (Bld) [Entitic vol] 12.2 fL 9.0 - 12.7 fL [facility] Platelets (Bld) [#/Vol] 192 10*3/uL [facility] RBC (Bld) [#/Vol] 4.42 10*6/uL 3.90 - 5.2 0 m/uL [facility] WBC (Bld) [#/Vol] 4.11 10*3/uL [facility] Basophils (Bld) [#/Vol] 0.03 10*3/uL Normal <0.[address] [facility] Comment on above: Order Comment: Speci men Type: BLOOD SPECIMENOrdering Facility: [facility] Address: [address] [place] [address] Performed By: #### 5 7021-8 ####[facility] LABCLIA [id number] [place] [address] [place] Basophils/100 WBC (Bld) 0.7 % Normal [facility] Comment on above: Order Comment: Speci men Type: BLOOD SPECIMENOrdering Facility: [facility] Address: [address] [place] [address] Performed By: #### 5 7021-8 ####[facility] LABCLIA [id number] [place] [address] [place] Differential cell count method Nom (Bld) Auto Normal [facility] Comment on above: Order Comment: Speci men Type: BLOOD SPECIMENOrdering Facility: [facility] Address: [address] [place] [address] Performed By: #### 5 7021-8 ####[facility] LABCLIA [id number] [place] [address] [place] Eosinophils (Bld) [#/Vol] 0.08 10*3/uL Normal <0.[address] [facility] Comment on above: Order Comment: Speci men Type: BLOOD SPECIMENOrdering Facility: [facility] Address: [address] [place] [address] Performed By: #### 5 7021-8 ####[facility] LABCLIA [id number] [place] [address] [place] Eosinophils/100 WBC (Bld) 1.9 % Normal [facility] Comment on above: Order Comment: Speci men Type: BLOOD SPECIMENOrdering Facility: [facility] Address: [address] [place] [address] Performed By: #### 5 7021-8 ####[facility] LABIA [id number] [place] [address] [place] Erythrocyte distribution width (RBC) [Ratio] 12.3 % Normal 11.5-15.[address] [facility] Comment on above: Order Comment: Speci men Type: BLOOD SPECIMENOrdering Facility: [facility] Address: [address] [place] [address] Performed By: #### 5 7021-8 ####[facility] LABIA [id number] [place] [address] [place] Hematocrit (Bld) [Volume fraction] 43.3 % Normal 36.0-46.[address] [facility] Comment on above: Order Comment: Speci men Type: BLOOD SPECIMENOrdering Facility: [facility] Address: [address] [place] [address] Performed By: #### 5 7021-8 ####[facility] LABCLIA [id number] [place] [address] [place] Hemoglobin (Bld) [Mass/Vol] 14.5 g/dL Normal 11.5-15.[address] [facility] Comment on above: Order Comment: Speci men Type: BLOOD SPECIMENOrdering Facility: [facility] Address: [address] [place] [address] Performed By: #### 5 7021-8 ####[facility] LABIA [id number] [place] [address] [place] Immature granulocytes (Bld) [#/Vol] 10*3/uL Normal <0.[address] [facility] Comment on above: Order Comment: Speci men Type: BLOOD SPECIMENOrdering Facility: [facility] Address: [address] [place] [address] Performed By: #### 5 7021-8 ####[facility] LABCLIA [id number] [place] [address] [place] Immature granulocytes/100 WBC (Bld) 0.2 % Normal [facility] Comment on above: Order Comment: Speci men Type: BLOOD SPECIMENOrdering Facility: [facility] Address: [address] [place] [address] Performed By: #### 5 7021-8 ####[facility] LABCLIA [id number] [place] [address] [place] Lymphocytes (Bld) [#/Vol] 1.75 10*3/uL Normal 1.00-4.[address] [facility] Comment on above: Order Comment: Speci men Type: BLOOD SPECIMENOrdering Facility: [facility] Address: [address] [place] [address] Performed By: #### 5 7021-8 ####[facility] LABCLIA [id number] [place] [address] [place] Lymphocytes/100 WBC (Bld) 42.6 % Normal [facility] Comment on above: Order Comment: Speci men Type: BLOOD SPECIMENOrdering Facility: [facility] Address: [address] [place] [address] Performed By: #### 5 7021-8 ####[facility] LABCLIA [id number] [place] [address] [place] MCH (RBC) [Entitic mass] 32.8 pg Normal 26.0-34.[address] [facility] Comment on above: Order Comment: Speci men Type: BLOOD SPECIMENOrdering Facility: [facility] Address: [address] [place] [address] Performed By: #### 5 7021-8 ####[facility] LABCLIA [id number] [place] [address] [place] MCHC (RBC) [Mass/Vol] 33.5 g/dL Normal 30.5-36.[address] [facility] Comment on above: Order Comment: Speci men Type: BLOOD SPECIMENOrdering Facility: [facility] Address: [address] [place] [address] Performed By: #### 5 7021-8 ####[facility] LABIA [id number] [place] [address] [place] MCV (RBC) [Entitic vol] 98.0 fL Normal 80.0-100.[address] [facility] Comment on above: Order Comment: Speci men Type: BLOOD SPECIMENOrdering Facility: [facility] Address: [address] [place] [address] Performed By: #### 5 7021-8 ####[facility] LABIA [id number] [place] [address] [place] Monocytes (Bld) [#/Vol] 0.39 10*3/uL Normal <0.[address] [facility] Comment on above: Order Comment: Speci men Type: BLOOD SPECIMENOrdering Facility: [facility] Address: [address] [place] [address] Performed By: #### 5 7021-8 ####[facility] LABCLIA [id number] [place] [address] [place] Monocytes/100 WBC (Bld) 9.5 % Normal [facility] Comment on above: Order Comment: Speci men Type: BLOOD SPECIMENOrdering Facility: [facility] Address: [address] [place] [address] Performed By: #### 5 7021-8 ####[facility] LABCLIA [id number] [place] [address] [place] Neutrophils (Bld) [#/Vol] 1.85 10*3/uL Normal 1.45-7.[address] [facility] Comment on above: Order Comment: Speci men Type: BLOOD SPECIMENOrdering Facility: [facility] Address: [address] [place] [address] Performed By: #### 5 7021-8 ####[facility] LABCLIA [id number] [place] [address] [place] Neutrophils/100 WBC (Bld) 45.1 % Normal [facility] Comment on above: Order Comment: Speci men Type: BLOOD SPECIMENOrdering Facility: [facility] Address: [address] [place] [address] Performed By: #### 5 7021-8 ####[facility] LABCLIA [id number] [place] [address] [place] Nucleated RBC (Bld) [#/Vol] 10*3/uL Normal <0.[address] [facility] Comment on above: Order Comment: Speci men Type: BLOOD SPECIMENOrdering Facility: [facility] Address: [address] [place] [address] Performed By: #### 5 7021-8 ####[facility] LABCLIA [id number] [place] [address] [place] Nucleated RBC/100 WBC (Bld) [Ratio] 0.0 /100 WBC Normal [facility] Comment on above: Order Comment: Speci men Type: BLOOD SPECIMENOrdering Facility: [facility] Address: [address] [place] [address] Performed By: #### 5 7021-8 ####[facility] LABCLIA [id number] [place] [address] [place] Platelet mean volume (Bld) [Entitic vol] 12.2 fL Normal 9.0-12.[address] [facility] Comment on above: Order Comment: Speci men Type: BLOOD SPECIMENOrdering Facility: [facility] Address: [address] [place] [address] Performed By: #### 5 7021-8 ####[facility] LABIA [id number] [place] [address] [place] Platelets (Bld) [#/Vol] 192 10*3/uL Normal 150-[address] [facility] Comment on above: Order Comment: Speci men Type: BLOOD SPECIMENOrdering Facility: [facility] Address: [address] [place] [address] Performed By: #### 5 7021-8 ####[facility] LABIA [id number] [place] [address] [place] RBC (Bld) [#/Vol] 4.42 10*6/uL Normal 3.90-5.[address] [facility] Comment on above: Order Comment: Speci men Type: BLOOD SPECIMENOrdering Facility: [facility] Address: [address] [place] [address] Performed By: #### 5 7021-8 ####[facility] LABIA [id number] [place] [address] [place] WBC (Bld) [#/Vol] 4.11 10*3/uL Normal 3.70-11.[address] [facility] Comment on above: Order Comment: Speci men Type: BLOOD SPECIMENOrdering Facility: [facility] Address: [address] [place] [address] Performed By: #### 5 7021-8 ####[facility] LABIA [id number] [place] [address] [place] CNOVon 11-04-2023 CNOV Office Visit (FAMPWS ) -------- ISABEL SAHNI ([id number]) 1955 F Date Time Provider Department 11/04/23 10:20 AM FRANKLIN ARIAS During your visit today, we recorded the following information about you: Pulse Respiration Blood pressure Weight 76/minute 16/minute 126/84 95.3 kg Height 1.727 m Franklin Arias MD 11/04/2023 12:33 PM Signed Isabel Sahni is a 68 year old female here for a Medicare wellness visit. Medicare Health Risk Assessment General Health good Exercise: Minutes/Day None, just active daily Exercise: Days/Week Alcohol: Daily Use none Alcohol: Drinks/Day Alcohol: 6 or more drinks Feel off balance none Concerns: Teeth/Dentures Concerns: Sexual function Troubled by feelings none Frequency: Eating healthy diet 2 days ADLs requiring help none Safety precautions in home/vehicle Wears seat belts, no loss rugs. No grab bars. No stairs. Smoke, vape, chews tobacco quit Difficulty hearing no Difficulty seeing Wears eye glasses. Current Providers Specialists: I have reviewed specialist-related care of the patient in the medical record. Current care team: Patient Care Team: Franklin Arias MD as PCP - General (Family Medicine) Dr. Corona (Gastro) Medical/Family history review Reviewed and updated problem list, medical/surgical/family/ social history, medications, and allergies. Opioid use review Opioid Medications (last 90 days) No data to display Depression screening Depression Screening PHQ-2 Score ZULAY-2 Total Score 11/04/2023 0 0 Depression screening tool completed and reviewed. Based on score and interview, patient is not at risk for depression. Screening tool discussed with patient, and I recommended no further intervention at this time. Cognitive screening Score: 4 Cognitive screening reviewed and No further action needed (score 3-5). Functional Observation Was the patient's Timed Up AND Go test unsteady or ? 12 seconds? No Advance Care Planning Patient did not wish or was not able to name a surrogate decision maker or provide an advance care plan Measurements BP 126/84 Pulse 76 Resp 16 Ht 5' 8 (1.73m) Wt 210 lb (95.3kg) LMP 03/12/2010 BMI 31.94 kg/(m2). Vision Screening: Follows with optometry/ophthalmology Assessment/Plan Welcome to Medicare preventive visit (Z00.00) - Counseled on healthy diet and regular exercise - Fall avoidance information provided - Personalized prevention plan provided See below Chief Complaint Patient presents with: Medicare Wellness Exam HPI Isabel Sahni is a 68 year old female who presents here today for Chronic Medical Conditions. and Medicare Annual Visit. Patient with hx of HTN, hyperlipidemia, liver fibrosis, elevated glucose, carotid stenosis, obesity, vit d def, pancreatic cyst, and those as below. Patient saw Ortho on 10/27/2023 for right shoulder pain. Patient has been doing ok. No concerns. Past medical history, appointments, medications, allergies reviewed. [...] DILAT SPX 03/13/2010 ERCP 2013 with stent ESOPHAGOGASTRODUODENOSCO PY TRANSORAL DIAGNOSTIC 05/05/2014 EGD ESOPHAGOGASTRODUODENOSCO PY TRANSORAL DIAGNOSTIC 09/14/2015 EGD HYSTEROSCOPY BX ENDOMETRIUMAND/POLYPC W/WO DANDC N/A 11/30/2020 resection of endometrial polyps LAPAROSCOPY SURG CHOLECYSTECTOMY 03/03/2014 PAST SURGICAL HISTORY OF 03/17/2007 Left knee surgery TONSILLECTOMY HX Family History FAMILY HISTORY Problem Relation Age of Onset Diabetes M (more content not included)... Normal [facility] Comprehensive metabolic 2000 panelon 11-04-2023 Albumin [Mass/Vol] 4.4 g/dL Normal 3.9-4.9 [facility] Comment on above: Order Comment: Speci men Type: BLOOD SPECIMENOrdering Facility: [facility] Address: [address] [place] [address] Performed By: #### 2 132-9, 70600-4, LIPNF, 86587-3 ####[facility] LABCLIA [id number] [place] [address] [place] ALP [Catalytic activity/Vol] 117 U/L Normal 34-[address] [facility] Comment on above: Order Comment: Speci men Type: BLOOD SPECIMENOrdering Facility: [facility] Address: [address] [place] [address] Performed By: #### 2 132-9, 90388-9, LIPNF, 53615-3 ####[facility] LABCLIA [id number] [place] [address] [place] ALT [Catalytic activity/Vol] 14 U/L Normal 7-[address] [facility] Comment on above: Order Comment: Speci men Type: BLOOD SPECIMENOrdering Facility: [facility] Address: [address] [place] [address] Performed By: #### 2 132-9, 66104-8, LIPNF, 03996-2 ####[facility] LABCLIA [id number] [address] [address] [id number] [address] [place] Anion gap [Moles/Vol] 13 mmol/L Normal 9-[address] [facility] Comment on above: Order Comment: Speci men Type: BLOOD SPECIMENOrdering Facility: [facility] Address: [address] [place] [address] Performed By: #### 2 132-9, 72950-2, LIPNF, ####[facility] LABCLIA [id number] [place] [address] [place] AST [Catalytic activity/Vol] 19 U/L Normal 13-[address] [facility] Comment on above: Order Comment: Speci men Type: BLOOD SPECIMENOrdering Facility: [facility] Address: [address] [place] [address] Performed By: #### 2 132-9, 74049-0, LIPNF, ####[facility] LABCLIA [id number] [place] [address] [place] Bilirubin [Mass/Vol] 0.8 mg/dL Normal 0.2-1.[address] [facility] Comment on above: Order Comment: Speci men Type: BLOOD SPECIMENOrdering Facility: [facility] Address: [address] [place] [address] Performed By: #### 2 132-9, 86927-2, LIPNF, ####[facility] LABCLIA [id number] [place] [address] [place] Calcium [Mass/Vol] 9.7 mg/dL Normal 8.5-10.2 [facility] Comment on above: Order Comment: Speci men Type: BLOOD SPECIMENOrdering Facility: [facility] Address: [address] [place] [address] Performed By: #### 2 132-9, 53317-5, LIPNF, ####[facility] LABCLIA [id number] [place] [address] [place] Chloride [Moles/Vol] 102 mmol/L Normal 97-[address] [facility] Comment on above: Order Comment: Speci men Type: BLOOD SPECIMENOrdering Facility: [facility] Address: [address] [place] [address] Performed By: #### 2 132-9, 58476-7, LIPNF, ####[facility] LABCLIA [id number] [place] [address] [place] CO2 [Moles/Vol] 24 mmol/L Normal 22-[address] [facility] Comment on above: Order Comment: Speci men Type: BLOOD SPECIMENOrdering Facility: [facility] Address: [address] [place] [address] Performed By: #### 2 132-9, 06097-3, LIPNF, ####[facility] LABCLIA [id number] [place] [address] [place] Creatinine [Mass/Vol] 0.79 mg/dL Normal 0.58-0.[address] [facility] Comment on above: Order Comment: Speci men Type: BLOOD SPECIMENOrdering Facility: [facility] Address: [address] [place] [address] Performed By: #### 2 132-9, 82231-4, LIPNF, ####[facility] LABCLIA [id number] [place] [address] [place] Creatinine and Glomerular filtration rate.predicted panel (S/P/Bld) 83 mL/min/1.73m??? Normal >=[address] [facility] Comment on above: Order Comment: Speci men Type: BLOOD SPECIMENOrdering Facility: [facility] Address: [address] [place] [address] Result Comment: Mi mated Glomerular Filtration Rate (eGFR) is calculated using the 2020 CKD-EPI creatinine equation. This equation utilizes serum creatinine, sex, and age as parameters. The creatinine assay has traceable calibration to isotope dilution-mass spectrometry. Refer to KDIGO guidelines for clinical interpretation. In patients with unstable renal function, e.g. those with acute kidney injury, the eGFR may not accurately reflect actual GFR. Performed By: #### 2 132-9, 15844-6, JEOVANNY, ####[facility] LABCLIA [id number] [place] [address] [place] Glucose [Mass/Vol] 91 mg/dL Normal 74-99 [facility] Comment on above: Order Comment: Sharath vincent Type: BLOOD SPECIMENOrdering Facility: [facility] Address: [address] [place] [address] Result Comment: The [place] Diabetes Association (ADA) provides guidance for cutoff values for fasting glucose and random glucose. The ADA defines fasting as no caloric intake for at least 8 hours. Fasting plasma glucose results between 100 to 125 mg/dL indicate increased risk for diabetes (prediabetes). Fasting plasma glucose results greater than or equal to 126 mg/dL meet the criteria for diagnosis of diabetes. In the absence of unequivocal hyperglycemia, results should be confirmed by repeat testing. In a patient with classic symptoms of hyperglycemia or hyperglycemic crisis, random plasma glucose results greater than or equal to 200 mg/dL meet the criteria for diagnosis of diabetes. Reference: Standards of Medical Care in Diabetes 2016, [place] Diabetes Association. Diabetes Care. 2016.39(Suppl 1). Performed By: #### 2 132-9, 90943-0, JEOVANNY, ####[facility] LABCLIA [id number] [place] [id number] [place] Potassium [Moles/Vol] 4.6 mmol/L Normal 3.7-5.[address] [facility] Comment on above: Order Comment: Sharath men Type: BLOOD SPECIMENOrdering Facility: [facility] Address: [address] [place] [address] Performed By: #### 2 132-9, 89199-9, JEOVANNY, ####[facility] LABCLIA [id number] [address] [address] [place] Protein [Mass/Vol] 7.2 g/dL Normal 6.3-8.0 [facility] Comment on above: Order Comment: Speci men Type: BLOOD SPECIMENOrdering Facility: [facility] Address: [address] [place] [address] Performed By: #### 2 132-9, 34835-8, LIPNF, ####[facility] LABCLIA [id number] [address] [address] [place] Sodium [Moles/Vol] 139 mmol/L Normal 136-144 [facility] Comment on above: Order Comment: Speci men Type: BLOOD SPECIMENOrdering Facility: [facility] Address: [address] [place] [address] Performed By: #### 2 132-9, 08240-7, LIPNF, ####[facility] LABCLIA [id number] [place] [address] [place] Urea nitrogen [Mass/Vol] 17 mg/dL Normal 7-[address] [facility] Comment on above: Order Comment: Speci men Type: BLOOD SPECIMENOrdering Facility: [facility] Address: [address] [place] [address] Performed By: #### 2 132-9, 54158-2, LIPNF, ####[facility] LABCLIA [id number] [place] [address] [place] HbA1c (Bld)on 11-04-2023 Average glucose Estimated from glycated hemoglobin (Bld) [Mass/Vol] 114 mg/dL [facility] Comment on above: eAG: (Estimated aver age glucose) is a calculated value from HgbA1c and is collections representative of the average blood glucose level in the last 2-3 month period. HbA1c (Bld) [Mass fraction] 5.6 % 4.3 - 5.6 % [facility] Comment on above: [place] Diabetes As sociation guidelines indicate that patients with HgbA1c in the range 5.7-6.4% are at increased risk for development of diabetes, and intervention by lifestyle modification may be beneficial. HgbA1c greater or equal to 6.5% is considered diagnostic of diabetes. [facility] Average glucose Estimated from glycated hemoglobin (Bld) [Mass/Vol] 114 mg/dL Normal [facility] Comment on above: Order Comment: Sharath men Type: BLOOD SPECIMENOrdering Facility: [facility] Address: [address] [place] [address] Result Comment: eAG: (Estimated average glucose) is a calculated value from HgbA1c and is collections representative of the average blood glucose level in the last 2-3 month period. Performed By: #### 5 5454-3 ####[facility] LABCLIA [id number] [place] [address] [place] HbA1c (Bld) [Mass fraction] 5.6 % Normal 4.3-5.[address] [facility] Comment on above: Order Comment: Sharath men Type: BLOOD SPECIMENOrdering Facility: [facility] Address: [address] [place] [address] Result Comment: [place] Diabetes Association guidelines indicate that patients with HgbA1c in the range 5.7-6.4% are at increased risk for development of diabetes, and intervention by lifestyle modification may be beneficial. HgbA1c greater or equal to 6.5% is considered diagnostic of diabetes. Performed By: #### 5 5454-3 ####[facility] LABCLIA [id number] [place] [address] [place] LIPID PANEL, NONFASTINGon Cholesterol [Mass/Vol] 294 mg/dL High <[address] [facility] Comment on above: Order Comment: Sharath men Type: BLOOD SPECIMENOrdering Facility: [facility] Address: [address] [place] [address] Result Comment: <200 mg/dL, Desirable 200-239 mg/dL, Borderline high >239 mg/dL, High Performed By: #### 2 132-9, 38804-9, LIPNF, 16045-8 ####[facility] LABCLIA [id number] [place] [address] [place] HDL CHOLESTEROL, NF 54 mg/dL Normal >[address] [facility] Comment on above: Order Comment: Speci men Type: BLOOD SPECIMENOrdering Facility: [facility] Address: [address] [place] [address] Result Comment: 40-5 9 mg/dL, Acceptable >59 mg/dL, High: Negative risk factor for coronary heart disease <40 mg/dL, Low: Positive risk factor for coronary heart disease Performed By: #### 2 132-9, 29391-6, LIPNF, 79740-9 ####[facility] LABCLIA [id number] [place] [address] [place] LDL CHOLESTEROL, NF 205 mg/dL High <[address] [facility] Comment on above: Order Comment: Speci men Type: BLOOD SPECIMENOrdering Facility: [facility] Address: [address] [place] [address] Result Comment: <100 mg/dL, Optimal 100-129 mg/dL, Near optimal/above optimal 130-159 mg/dL, Borderline high 160-189 mg/dL, High >189 mg/dL, Very high Secondary prevention optimal LDL Cholesterol levels are recommended to be < 70 mg/dL Performed By: #### 2 132-9, 49065-3, LIPNF, 96959-3 ####[facility] LABCLIA [id number] [address] [place] LDL/HDL RATIO, NF 3.80 mg/dL High <2.54 [facility] Comment on above: Order Comment: Speci men Type: BLOOD SPECIMENOrdering Facility: [facility] Address: [address] [place] [address] Result Comment: Refe rence: 1. National Cholesterol Education Program ATP III Guideline At-A-Glance Quick Desk Reference: National Heart, Lung, and Blood Cascade. National Institutes of Health. 2001: NIH Publication No. 01-3305. 2. An International Atherosclerosis Society position paper: global recommendations for the management of dyslipidemia: executive summary, Atherosclerosis. 2014: 232(2):410-413. Performed By: #### 2 132-9, 96910-1, LIPNF, 85885-5 ####[facility] LABCLIA [id number] [place] [address] [place] NON HDL CHOL, NF 240 mg/dL High <130 [facility] Comment on above: Order Comment: Speci men Type: BLOOD SPECIMENOrdering Facility: [facility] Address: [address] [place] [address] Result Comment: <130 mg/dL, Optimal 130-159 mg/dL, Near optimal/above optimal 160-189 mg/dL, Borderline high 190-219 mg/dL, High >219 mg/dL, Very high Secondary prevention optimal non HDL Cholesterol levels are recommended to be <100 mg/dL Performed By: #### 2 132-9, 33677-4, LIPNF, ####[facility] LABCLIA [id number] [place] [address] [place] T CHOL/HDL RATIO NF 5.44 mg/dL High <5.[address] [facility] Comment on above: Order Comment: Speci men Type: BLOOD SPECIMENOrdering Facility: [facility] Address: [address] [place] [address] Performed By: #### 2 132-9, 59372-8, LIPNF, ####[facility] LABCLIA [id number] [place] [address] [place] TRIGLYCERIDES, NF 174 mg/dL High <150 [facility] Comment on above: Order Comment: Speci men Type: BLOOD SPECIMENOrdering Facility: [facility] Address: [address] [place] [address] Result Comment: <150 mg/dL, Normal 150-199 mg/dL, Borderline high 200-499 mg/dL, High >499 mg/dL, Very high Performed By: #### 2 132-9, 44351-8, LIPNF, ####[facility] LABCLIA [id number] [place] [address] [place] VLDL CHOLESTEROL, NF 35 mg/dL High <[address] [facility] Comment on above: Order Comment: Speci men Type: BLOOD SPECIMENOrdering Facility: [facility] Address: [address] [place] [address] Performed By: #### 2 132-9, 41981-5, LIPNF, 74043-1 ####[facility] LABCLIA [id number] [place] [address] [place] Magnesium SerPl-mCncon 11-03 Magnesium [Mass/Vol] 1.9 mg/dL Normal 1.7-2.[address] [facility] Comment on above: Order Comment: Speci men Type: BLOOD SPECIMENOrdering Facility: [facility] Address: [address] [place] [address] Performed By: #### 2 132-9, 40036-8, LIPNF, 07838-2 ####[facility] LABCLIA [id number] [place] [address] [place] Urinalysis complete panel (U )on 11-04-2023 Bacteria LM.HPF (Urine sed) [#/Area] Negative Negative /HPF [facility] Bilirubin Ql (U) Negative Negative [facility] Clarity (Unsp spec) Clear Clear [facility] Color (U) Yellow Yellow [facility] Epithelial cells LM.HPF (Urine sed) [#/Area] Few /HPF [facility] Glucose Test strip (U) [Mass/Vol] Negative Negative [facility] Hemoglobin Ql (U) Negative Negative [facility] Hyaline casts (Urine sed) [#/Area] 0 /[LPF] 0 /[facility]F [facility] Ketones Ql (U) Negative Negative [facility] Leukocyte esterase Test strip Ql (U) Negative Negative [facility] Nitrite Ql (U) Negative Negative [facility] pH (U) 6.5 [pH] NINF - 8.5 [facility] Protein (U) [Mass/Vol] Negative Negative [facility] RBC LM.HPF (Urine sed) [#/Area] 0-2 /HPF 0-2 /HPF [facility] Specific gravity (U) [Rel density] 1.017 1.005 - 1.030 [facility] Urobilinogen Ql (U) 1.0 EU/dL 0.2-1.0 EU/dL [facility] WBC LM.HPF (Urine sed) [#/Area] 0-5 /HPF 0-5 /HPF [facility] This test was develo ped and its performance characteristics determined by [facility]'s Kamlesh Jennifer [facility] Pathology and Laboratory [facility] [place] ([facility]). It has not been cleared or approved by the FDA. [facility] is regulated under CLIA as qualified to perform high-complexity testing. This test is used for clinical purposes. It should not be regarded as investigational or for research. [facility] Bacteria LM.HPF (Urine sed) [#/Area] Negative Normal Negative [facility] Comment on above: Order Comment: Speci men Type: URINE SPECIMENOrdering Facility: [facility] Address: [address] [place] [address] Performed By: #### 2 4356-8 ####[facility] LABCLIA [id number] [place] [address] [place] Bilirubin Ql (U) Negative Normal Negative [facility] Comment on above: Order Comment: Speci men Type: URINE SPECIMENOrdering Facility: [facility] Address: [address] [place] [address] Performed By: #### 2 4356-8 ####[facility] LABCLIA [id number] [place] [address] [place] Clarity (Unsp spec) Clear Normal Clear [facility] Comment on above: Order Comment: Speci men Type: URINE SPECIMENOrdering Facility: [facility] Address: [address] [place] [address] Performed By: #### 2 4356-8 ####[facility] LABCLIA [id number] [place] [address] [place] Color (U) Yellow Normal Yellow [facility] Comment on above: Order Comment: Speci men Type: URINE SPECIMENOrdering Facility: [facility] Address: [address] [place] [address] Performed By: #### 2 4356-8 ####[facility] LABCLIA [id number] [place] [address] [place] Epithelial cells LM.HPF (Urine sed) [#/Area] Few Normal [facility] Comment on above: Order Comment: Speci men Type: URINE SPECIMENOrdering Facility: [facility] Address: [address] [place] [address] Performed By: #### 2 4356-8 ####[facility] LABCLIA [id number] [place] [address] [place] Glucose Test strip (U) [Mass/Vol] Negative Normal Negative [facility] Comment on above: Order Comment: Speci men Type: URINE SPECIMENOrdering Facility: [facility] Address: [address] [place] [address] Performed By: #### 2 4356-8 ####[facility] LABCLIA [id number] [place] [address] [place] Hemoglobin Ql (U) Negative Normal Negative [facility] Comment on above: Order Comment: Speci men Type: URINE SPECIMENOrdering Facility: [facility] Address: [address] [place] [address] Performed By: #### 2 4356-8 ####[facility] LABCLIA [id number] [place] [address] [place] Hyaline casts (Urine sed) [#/Area] 0 /[LPF] Normal 0 /LPF [facility] Comment on above: Order Comment: Speci men Type: URINE SPECIMENOrdering Facility: [facility] Address: [address] [place] [address] Performed By: #### 2 4356-8 ####[facility] LABCLIA [id number] [place] [address] [place] Ketones Ql (U) Negative Normal Negative [facility] Comment on above: Order Comment: Speci men Type: URINE SPECIMENOrdering Facility: [facility] Address: [address] [place] [address] Performed By: #### 2 4356-8 ####[facility] LABCLIA [id number] [place] [address] [place] Leukocyte esterase Test strip Ql (U) Negative Normal Negative [facility] Comment on above: Order Comment: Speci men Type: URINE SPECIMENOrdering Facility: [facility] Address: [address] [place] [address] Performed By: #### 2 4356-8 ####[facility] LABCLIA [id number] [place] [address] [place] Nitrite Ql (U) Negative Normal Negative [facility] Comment on above: Order Comment: Speci men Type: URINE SPECIMENOrdering Facility: [facility] Address: [address] [place] [address] Performed By: #### 2 4356-8 ####[facility] LABCLIA [id number] [place] [address] [place] pH (U) 6.5 [pH] Normal <8.[address] [facility] Comment on above: Order Comment: Speci men Type: URINE SPECIMENOrdering Facility: [facility] Address: [address] [place] [address] Performed By: #### 2 4356-8 ####[facility] LABIA [id number] [place] [address] [place] Protein (U) [Mass/Vol] Negative Normal Negative [facility] Comment on above: Order Comment: Speci men Type: URINE SPECIMENOrdering Facility: [facility] Address: [address] [place] [address] Performed By: #### 2 4356-8 ####[facility] LABCLIA [id number] [place] [address] [place] RBC LM.HPF (Urine sed) [#/Area] 0-2 /HPF Normal 0-2 /HPF [facility] Comment on above: Order Comment: Speci men Type: URINE SPECIMENOrdering Facility: [facility] Address: [address] [place] [address] Performed By: #### 2 4356-8 ####[facility] LABIA [id number] [place] [address] [place] Specific gravity (U) [Rel density] 1.017 Normal 1.005-1.[address] [facility] Comment on above: Order Comment: Speci men Type: URINE SPECIMENOrdering Facility: [facility] Address: [address] [place] [address] Performed By: #### 2 4356-8 ####[facility] [id number] [place] [address] [place] Urobilinogen Ql (U) 1.0 EU/dL Normal 0.2-1.0 EU/dL [facility] Comment on above: Order Comment: Speci men Type: URINE SPECIMENOrdering Facility: [facility] Address: [address] [place] [address] Performed By: #### 2 4356-8 ####[facility] [id number] [place] [address] [place] WBC LM.HPF (Urine sed) [#/Area] 0-5 /HPF Normal 0-5 /HPF [facility] Comment on above: Order Comment: Speci men Type: URINE SPECIMENOrdering Facility: [facility] Address: [address] [place] [address] Performed By: #### 2 4356-8 ####[facility] [id number] [place] [address] [place] Vit B12 SerPl-ncon 04-23-2 024 Cobalamin (Vitamin B12) [Mass/Vol] 281 pg/mL Normal 232-[address] [facility] Comment on above: Order Comment: Speci men Type: BLOOD SPECIMENOrdering Facility: [facility] Address: [address], [place] [address] Performed By: #### 2 132-9, 60239-0, JEOVANNY, 53669-7 ####[facility] LABCLIA [id number] [address] [id number] [address] [place] CNOVon 10-27-2023 CNOV Office Visit (ORTHWS ) -------- ISABEL SAHNI ([id number]) 1955 F Date Time Provider Department 10/27/23 1:30 PM SHANTAL RHODES During your visit today, we recorded the following information about you: Florencia Foster, JEANNETTE 10/27/2023 2:13 PM Signed AMB ROOMING INTAKE FLOWSHEET DATA Patient presents with: Right Shoulder - Established Patient, Follow Up Patient presents for 9 week follow up of right shoulder pain and cervicalgia. Xray was done 08/25/23 of cervical and 06/19/23. Received steroid injection at [facility] on 08/25/23. Patient states that the injection helped initially. Some soreness still, but better than before. Shantal Rhodes PA-C 10/27/2023 2:13 PM Signed Shantal Rhodes PA-C Department of Orthopaedics Orthopaedics [address] [facility] [address] Dept: [phone] Dept October 27, 2023 CHIEF COMPLAINT: Established Patient and Follow Up of the Right Shoulder. ASSESSMENT: M25.511 Acute pain of right shoulder (primary encounter diagnosis) M54.2 Cervicalgia M75.51 Bursitis of right shoulder SUMMARY/PLAN: Patient presents for a 9-week follow-up of her right shoulder pain. She had a subacromial corticosteroid injection on her last visit. She found the injection to be very helpful, no longer having pain when she raises her arm overhead, she is still getting some nighttime pain along the lateral aspect of the shoulder. Unable to tolerate NSAIDs. Her is having eye surgery, she will need to be there to help him put drops in. Once her is more recovered we discussed potentially getting some additional imaging of the shoulder. I am happy to see her back for a repeat corticosteroid injection, assuming it is in the 91 days. We also discussed she has some disc disease in her neck, we can get her into some PT for that patient agrees to plan. Exam: Supple range of motion of the cervical spine without pain. Spurling signs are negative. No atrophy of the deltoid and shoulder musculature. Right shoulder is nontender to palpation over the SC joint, clavicle and AC joint. No tenderness to palpation over the posterior shoulder, nontender at anterior lateral corner of the shoulder and greater tuberosity. Nontender at the bicipital groove and coracoid. Active range of motion is 150 degrees of forward elevation, 60 degrees external rotation, and internal rotation to the low lumbar spine. Passive range of motion is 150 degrees, 65 degrees, respectively. No laxity with anterior and posterior stress. Negative Neer and positive Bernardo impingement signs. 4+ /5 strength with supraspinatus, 5/5 strength testing with infraspinatus and subscapularis. Sensation is intact in the axillary, radial, median and ulnar nerve distribution Ms. Isabel Sahni was advised as to contrast therapies and/or to take analgesics/anti-inflamma tories as needed and all contraindications were reviewed. Supporting Information Below: Medications: Current Outpatient Medications Medication Sig metFORMIN (GLUCOPHAGE) 500 mg tablet Take 1 tablet by mouth every [address] (PROTONIX) 40 mg tablet Take 1 tablet by mouth two times a day. Take on empty stomach, 1/2 hr before meal. losartan (COZAAR) 100 mg tablet Take 1 tablet by mouth once daily. hydroCHLOROthiazide 25 mg tablet Take 1 tablet by mouth once daily. potassium chloride (K-TAB) 10 mEq tablet Take 1 tablet by mouth daily with breakfast. atorvastatin (LIPITOR) 40 mg tablet Take 1 tablet by mouth daily at bedtime. For cholesterol. diclofenac (VOLTAREN) 1 % topical gel Apply 4 g to affected area four times daily. loratadine (CLARITIN) 10 mg tablet Take [...] capsule by mouth one time a week. cyclobenzaprine (FLEXERIL) 10 mg tablet Take 1 tablet by mouth three times daily as needed for muscle spasm. (Patient not taking: Reported on 10/27/2023) No current facility-administered medications for this visit. Allergies: Asa [Salicylates], Phenergan [Promethazine], Codeine, Hydrocodone, Ibuprofen, Lisinopril, and Oxycodone This note was partially generated using [employer] voice recognition system, and there may be some incorrect words, spellings, and punctuation that were not noted in checking the note before saving. Shantal Rhodes PA-C Referring Provider: SHANTAL RHODES [[id number]] Allergies As of Date: 10/27/2023 Noted Allergy Reaction ASA (SALICYLATES) 04/29/2005 4 - Hives PHENERGAN (PROMETHAZINE) 04/14/2014 9 - Itching Comments: supposi (more content not included)... Normal [facility] 08-26-[address] [facility] Telephone (ZIMDNA) -------- ISABEL SAHNI ([id number]) 1955 F Date Time Provider Department 08/26/23 SHANTAL RHODES During your visit today, we recorded the following information about you: Shantal Rhodes PA-C 08/26/2023 10:09 AM Signed Can we let the patient know that I got the x-ray results of her neck, she does have disc disease at multiple levels in her cervical spine. If she does not get any improvement with the shoulder corticosteroid injection then I would suggest getting her into physical therapy to work on her neck. If she continues to have issues then we should get her into see one of our spine or pain management providers. Order for PT in [facility]. Ludivina Hanna RN 08/26/2023 10:43 AM Signed Spoke with patient and relayed message. Patient verbalized understanding. Allergies As of Date: 08/26/2023 Noted Allergy Reaction ASA (SALICYLATES) 04/29/2005 4 - Hives PHENERGAN (PROMETHAZINE) 04/14/2014 9 - Itching Comments: suppositiries CODEINE 04/29/2005 5 - Intolerance HYDROCODONE 04/29/2005 3 - Cough 11 - Vomiting 12 - Shortness of Breath IBUPROFEN 04/29/2005 5 - Intolerance 8 - GI Upset LISINOPRIL 05/02/2014 3 - Cough OXYCODONE 03/07/2014 8 - GI Upset 10 - Anaphylaxis 14 - Other: See Comments Comments: Body aches. Hot flashes Date Reviewed: 08/25/2023 Reviewed by: Ruth De La Vega RN - Fully Assessed Reason for Visit: Results [95] Primary Visit Diagnosis:Acute pain of right shoulder [M25.511] Other Visit Diagnoses:Cervicalgia [M54.2] DDD (degenerative disc disease), cervical [M50.30] Order(s):CONSULT TO PHYSICAL THERAPY [9032] Order #: [id number]: 1 FUTURE Prescriptions as of 08/26/2023 - metFORMIN (GLUCOPHAGE) 500 mg tablet Take 1 tablet by mouth every 12 hours. - pantoprazole DR (PROTONIX) 40 mg tablet Take 1 tablet by mouth two times a day. Take on empty stomach, 1/2 hr before meal. - losartan (COZAAR) 100 mg tablet Take 1 tablet by mouth once daily. - hydroCHLOROthiazide 25 mg tablet Take 1 tablet by mouth once daily. - potassium chloride (K-TAB) 10 mEq tablet Take 1 tablet by mouth daily with breakfast. - atorvastatin (LIPITOR) 40 mg tablet Take 1 tablet by mouth daily at bedtime. For cholesterol. - diclofenac (VOLTAREN) 1 % topical gel Apply 4 g to affected area four times daily. - loratadine (CLARITIN) 10 mg tablet Take 1 tablet by mouth once daily. - cyclobenzaprine (FLEXERIL) 10 mg tablet Take 1 tablet by mouth three times daily as needed for muscle spasm. - cyanocobalamin (VITAMIN B-12) 1,000 mcg tab Take 1 tablet by mouth once daily. - Vitamin E, dl, acetate, (VITAMIN E) 400 unit capsule Take 1 capsule by mouth twice daily. Per Gastro: Dr. Corona - ursodiol (ACTIGALL) 300 mg capsule Take 1 capsule by mouth twice daily. Per Gastro: Dr. Corona - ergocalciferol 50,000 unit capsule (VITAMIN D2, DRISDOL) Take 1 capsule by mouth one time a week. Problem List As Of Date 08/26/2023 Noted Resolved Essential hypertension [I10] 03/09/2013 Mixed hyperlipidemia [E78.2] 03/22/2013 LPRD (laryngopharyngeal reflux disease) [K21.9] 05/11/2013 Former smoker [Z87.891] 05/11/2013 Right upper quadrant pain [R10.11] 02/14/2014 12/30/2016 Bile leak [K83.9] 04/01/2014 12/30/2016 Obesity, Class II, BMI 35-39.9 [E66.9] 08/31/2015 Carotid stenosis, bilateral [I65.23] 12/30/2016 Well adult exam [Z00.00] 07/17/2020 Tubular adenoma polyp of rectum [D12.8] 07/17/2020 Endometrial hyperplasia without atypia [N85.00] 12/18/2020 Vitamin D deficiency [E55.9] 10/01/2021 Elevated fasting glucose [R73.01] 10/02/2021 Low serum vitamin B12 [E53.8] 10/02/2021 Pancreatic cyst [K86.2] 11/09/2021 Elevated alkaline phosphatase level [R74.8] 12/05/2021 Liver fibrosis [K74.00] 01/16/2022 Encounter Status:Closed by LUDIVINA HANNA on 08/26/[address] [facility] CNOVon 08-25-2023 CNOV Office Visit (ORTHWS ) -------- ISABEL SAHNI ([id number]) 1955 F Date Time Provider Department 08/25/23 1:00 PM SHANTAL RHODES During your visit today, we recorded the following information about you: Ruth De La Vega RN 08/25/2023 2:57 PM Signed Patient presents with: Right Shoulder - New, Pain AMB ROOMING INTAKE FLOWSHEET DATA Pain Pain Level: 9 Pain Location: Shoulder-Right Description: Stiffness, Burning Duration Amount of Time: 2 Duration Units: Months Intervention/Comfort measure: Relaxation Right shoulder pain that she woke up with one morning. States pain is worse at night and radiates down to the hand. 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 Shantal Rhodes PA-C 08/25/2023 2:57 PM Signed Shantal Rhodes PA-C Department of Orthopaedics Orthopaedics [address] [place] [address] Dept: [phone] Dept August 25, [address] Juany Lawrence for an opinion regarding right shoulder pain. My final recommendations will be communicated back to the requesting physician by way of shared Medical record or letter to requesting physician via [place] mail. CHIEF COMPLAINT: New and Pain of the Right Shoulder Ms. Isabel Sahni is a 68 year old female who presents with right shoulder pain, awoke 2 months ago with pain, no known injury. Pain is a 9/10 burning throbbing in the shoulder. Pain worse at night, has some pain radiating down to the forearm. Denies numbness or tingling in hand. Difficulty lifting the arm, using her other arm to help lift. Not taking any NSAIDs, has uncontrolled GERD. Reports trying ice, heat and topicals with little to no relief. 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 ASSESSMENT: M75.51 Bursitis of right shoulder (primary encounter diagnosis) M25.511 Acute pain of right shoulder M54.2 Cervicalgia PLAN: She is so acutely tender in her shoulder that she is hard to examine. Certainly seams to have some shoulder impingement but some of her history also seams radicular in nature. Can't tolerate NSAIDs, so we will try a steroid injection and also get some cervical films for further evaluation. Ms. Isabel Sahni was advised as to contrast therapies and/or to take analgesics/anti-inflamma tories as needed and all contraindications were reviewed. OBJECTIVE: Ms. Isabel Sahni is a pleasant 68 year old in no apparent distress. Gen:LMP 03/12/2010 nl development, obese, no deformities ENT: Normocephalic, normal hearing, moist mucosa CV: Pulses:Radial= 2+ and symmetric, capillary refill < 2 secs, no peripheral edema/varicosities Skin: no rash, bruising or lesions. Good turgor. Psych: cooperative and appropriate, alert and oriented x 3, good mood and affect. Musculoskeletal: Supple range of motion of the cervical spine without pain. Spurling signs are negative. No atrophy of the deltoid and shoulder musculature. Right shoulder is tender to palpation over the SC joint, clavicle and AC joint. positive tenderness to palpation over the posterior shoulder, tender at the anterior lateral corner of the shoulder and greater tuberosity. tender at the bicipital groove and coracoid. Patient resiant to active ROM. Passive range of motion limited by pain. No laxity with anterior and posterior stress. positive Neer and positive Bernardo impingement signs. Strength testing limited by pain. Sensation is intact in the axillary, radial, median and ulnar nerve distribution In addition to the comprehensive evaluation, assessment and plan outlined above, and as a distinct and separate element to the visit today, separate from imaging tests for additional assessment, we have made the determination to proceed with an injection to aid in the management of the patient's condition. We discussed the risks, benefits, alternatives and expected outcomes of this injection in detail, and the patient agreed to proceed. The procedure was performed as detailed below. Large Joint Arthro/Inj: R subacromial bursa Informed Consent Consent Obtained: Verbal [place] Protocol A moment to CARE was completed. SIGN IN Sign in communication not applicable due to emergent procedure. Personnel directly involved with the procedure wore the appropriate PPE. Special Equipment: N/A Patient/Surrogate Stated/Verified: Patient name, Date of , Relevant allergies and Intended procedure TIME OUT Intended patient and procedure match the source document(s). Consent documented and matches the intended procedure. Relevant labs, photos, and/or imaging studies have been reviewed. Correct side/site marked and visible. Medications required for procedure verified. No fire risk assessment and interventions applicable. No implant(s) inserted. 08/25/2023 2:48 PM The procedure site was prepped in the (more content not included)... Normal [facility] XR CERVICAL 4V AP/LAT/OBLon 08-25-2023 XR CERVICAL 4V AP/LAT/OBL * * *Final Report* * * DATE OF EXAM: Aug 25 2023 2:04PM [id number] - XR CERVICAL 4V AP/LAT/OBL / PROCEDURE REASON: Cervicalgia * * * * Physician Interpretation * * * * Examination: XR CERVICAL 4V AP/LAT/OBL History: Cervicalgia Technique: XR CERVICAL 4V AP/LAT/OBL Comparison: None RESULT: Mild degenerative change and spondylosis throughout. Mild disc space narrowing at C5-6 and C6-7. No fracture or prevertebral swelling. Small marginal osteophytes bilaterally at C5-6 and C6-7. No significant foraminal encroachment IMPRESSION: DEGENERATIVE CHANGES DESCRIBED [employer] Cartoonist: PSCB Transcribe Date/Time: Aug 25 2023 3:11P Dictated by : PAT WANG MD This examination was interpreted and the report reviewed and electronically signed by: PAT WANG MD on Aug 25 2023 3:13PM EST [id number] Normal [facility] XR Cervical spine AP and Lat eral and obliqueon 08-25-2023 [facility] CNPNon 06-23-2023 CNPN Telephone (FAMPWS) -------- ISABEL SAHNI ([id number]) 1955 F Date Time Provider Department 12/11/23 JUANY LAWRENCE During your visit today, we recorded the following information about you: Juany Lawrence APRN.DIVORCE MEDIATOR 06/23/2023 9:04 AM Signed Please let patient know their xray is normal. Jayce Romero Cma 06/23/2023 9:38 AM Signed Left message for patient to return call to office Nicole Palma Cma, RN 06/23/2023 9:43 AM Signed Patient calls and notified of results. Patient verbalizes understanding. Nicole Zuñiga RN Allergies As of Date: 06/23/2023 Noted Allergy Reaction ASA (SALICYLATES) 04/29/2005 4 - Hives PHENERGAN (PROMETHAZINE) 04/14/2014 9 - Itching Comments: suppositiries CODEINE 04/29/2005 5 - Intolerance HYDROCODONE 04/29/2005 3 - Cough 11 - Vomiting 12 - Shortness of Breath IBUPROFEN 04/29/2005 5 - Intolerance 8 - GI Upset LISINOPRIL 05/02/2014 3 - Cough OXYCODONE 03/07/2014 8 - GI Upset 10 - Anaphylaxis 14 - Other: See Comments Comments: Body aches. Hot flashes Date Reviewed: 06/19/2023 Reviewed by: Jayce Romero Cma - Fully Assessed Reason for Visit: Results [95] Prescriptions as of 06/23/2023 - potassium chloride (K-TAB) 10 mEq tablet Take 1 tablet by mouth daily with breakfast. - atorvastatin (LIPITOR) 40 mg tablet Take 1 tablet by mouth daily at bedtime. For cholesterol. - pantoprazole DR (PROTONIX) 40 mg tablet Take 1 tablet by mouth two times a day. Take on empty stomach, 1/2 hr before meal. - losartan (COZAAR) 100 mg tablet Take 1 tablet by mouth once daily. - diclofenac (VOLTAREN) 1 % topical gel Apply 4 g to affected area four times daily. - hydroCHLOROthiazide 25 mg tablet Take 1 tablet by mouth once daily. - loratadine (CLARITIN) 10 mg tablet Take 1 tablet by mouth once daily. - cyclobenzaprine (FLEXERIL) 10 mg tablet Take 1 tablet by mouth three times daily as needed for muscle spasm. - cyanocobalamin (VITAMIN B-12) 1,000 mcg tab Take 1 tablet by mouth once daily. - Vitamin E, dl, acetate, (VITAMIN E) 400 unit capsule Take 1 capsule by mouth twice daily. Per Gastro: Dr. Corona - ursodiol (ACTIGALL) 300 mg capsule Take 1 capsule by mouth twice daily. Per Gastro: Dr. Corona - ergocalciferol 50,000 unit capsule (VITAMIN D2, DRISDOL) Take 1 capsule by mouth one time a week. Problem List As Of Date 06/23/2023 Noted Resolved Essential hypertension [I10] 03/09/2013 Mixed hyperlipidemia [E78.2] 03/22/2013 LPRD (laryngopharyngeal reflux disease) [K21.9] 05/11/2013 Former smoker [Z87.891] 05/11/2013 Right upper quadrant pain [R10.11] 02/14/2014 12/30/2016 Bile leak [K83.9] 04/01/2014 12/30/2016 Obesity, Class II, BMI 35-39.9 [E66.9] 08/31/2015 Carotid stenosis, bilateral [I65.23] 12/30/2016 Well adult exam [Z00.00] 07/17/2020 Tubular adenoma polyp of rectum [D12.8] 07/17/2020 Endometrial hyperplasia without atypia [N85.00] 12/18/2020 Vitamin D deficiency [E55.9] 10/01/2021 Elevated fasting glucose [R73.01] 10/02/2021 Low serum vitamin B12 [E53.8] 10/02/2021 Pancreatic cyst [K86.2] 11/09/2021 Elevated alkaline phosphatase level [R74.8] 12/05/2021 Liver fibrosis [K74.00] 01/16/2022 Encounter Status:Closed by NICOLE ZUÑIGA on 06/23/23 Normal [facility] [place] XR Shoulder - right 2 Viewso n 06-23-2023 IMPRESSION: NO ACUTE FINDINGS. [employer] Cartoonist: MARIA DOLORES Transcribe Date/Time: Jun 23 2023 6:25A Dictated by : EN MONTANO MD This examination was interpreted and the report reviewed and electronically signed by: EN MONTANO MD on Jun 23 2023 6:25AM [facility] DIVISION OF RADIOLOGY * * *Final Report* * * DATE OF EXAM: Jun 19 2023 3:03PM WOX [id number] - XR SHOULDER 2V AP/TRUE AP RT / PROCEDURE REASON: Acute pain of right shoulder * * * * Physician Interpretation * * * * HISTORY: Anterior right shoulder pain x 2 weeks with limited range of motion. No known injury.. Acute pain of right shoulder . TECHNIQUE: XR SHOULDER 2V AP/TRUE AP RT Laterality: RIGHT Number of different views (projections): 2 COMPARISON: None RESULT: There is no evidence of acute fracture or dislocation. The subacromial space is preserved. The glenohumeral joint space is maintained. There are degenerative changes in the partially visualized cervical spine. - DIVISION OF RADIOLOGY Provider, Jose David Villagran - 06/23/2023 * * *Final Report* * * DATE OF EXAM: Jun 19 2023 3:03PM WOX 5255 - XR SHOULDER 2V AP/TRUE AP RT / PROCEDURE REASON: Acute pain of right shoulder * * * * Physician Interpretation * * * * HISTORY: Anterior right shoulder pain x 2 weeks with limited range of motion. No known injury.. Acute pain of right shoulder . TECHNIQUE: XR SHOULDER 2V AP/TRUE AP RT Laterality: RIGHT Number of different views (projections): 2 COMPARISON: None RESULT: There is no evidence of acute fracture or dislocation. The subacromial space is preserved. The glenohumeral joint space is maintained. There are degenerative changes in the partially visualized cervical spine. - IMPRESSION IMPRESSION: NO ACUTE FINDINGS. [employer] Cartoonist: PSCB Transcribe Date/Time: Jun 23 2023 6:25A Dictated by : EN MONTANO MD This examination was interpreted and the report reviewed and electronically signed by: EN MONTANO MD on Jun 23 2023 6:25AM EST [facility] XR Shoulder - right 2 ViewsO rdered By: Ccphilip Provider on 06-23-2023 [facility] CNOVon 06-19-2023 CNOV Office Visit (FAMPWS ) -------- ISABEL SAHNI ([id number]) 1955 F Date Time Provider Department 06/19/23 2:40 PM JUANY LAWRENCE During your visit today, we recorded the following information about you: Pulse Respiration Blood pressure Weight 78/minute 16/minute 115/77 97.5 kg Juany Lawrence APRN.DIVORCE MEDIATOR 06/19/2023 2:41 PM Signed Chief Complaint Patient presents with: Pain (Shoulder [...] DILAT SPX 03/13/2010 ERCP 2013 with stent ESOPHAGOGASTRODUODENOSCO PY TRANSORAL DIAGNOSTIC 05/05/2014 EGD ESOPHAGOGASTRODUODENOSCO PY TRANSORAL DIAGNOSTIC 09/14/2015 EGD HYSTEROSCOPY BX ENDOMETRIUMAND/POLYPC [...] REVIEW OF SYSTEMS SEE HPI EXAM: BP 115 (more content not included)... Normal [facility] XR SHOULDER 2V AP/TRUE AP RT on 06-19-2023 XR SHOULDER 2V AP/TRUE AP RT * * *Final Report* * * DATE OF EXAM: Jun 19 2023 3:03PM WOX 5255 - XR SHOULDER 2V AP/TRUE AP RT / PROCEDURE REASON: Acute pain of right shoulder * * * * Physician Interpretation * * * * HISTORY: Anterior right shoulder pain x 2 weeks with limited range of motion. No known injury.. Acute pain of right shoulder . TECHNIQUE: XR SHOULDER 2V AP/TRUE AP RT Laterality: RIGHT Number of different views (projections): 2 COMPARISON: None RESULT: There is no evidence of acute fracture or dislocation. The subacromial space is preserved. The glenohumeral joint space is maintained. There are degenerative changes in the partially visualized cervical spine. - IMPRESSION: NO ACUTE FINDINGS. [employer] Cartoonist: MARIA DOLORES Transcribe Date/Time: Jun 23 2023 6:25A Dictated by : EN MONTANO MD This examination was interpreted and the report reviewed and electronically signed by: EN MONTANO MD on Jun 23 2023 6:25AM EST [id number] Normal [facility] XR Shoulder - right 2 Viewso n 06-19-2023 Radiology Study observation (narrative) [facility] Atul 04-15-2023 JENNIFER Telephone (FAMPWS) -------- ISABEL SAHNI ([id number]) 1955 F Date Time Provider Department 04/15/23 JUANY LAWRENCE During your visit today, we recorded the following information about you: Juany Lawrence APRN.DIVORCE MEDIATOR 04/15/2023 10:19 AM Signed Please let patient know her potassium is low and likely contributing to her leg cramps. I have ordered potassium supplementation and want her to repeat her labs in 1 week. Jayce Romero Cma 04/15/2023 10:39 AM Signed Patient notified and verbalized understanding Jayce Romero Cma Allergies As of Date: 04/15/2023 Noted Allergy Reaction ASA (SALICYLATES) 04/29/2005 4 - Hives PHENERGAN (PROMETHAZINE) 04/14/2014 9 - Itching Comments: suppositiries CODEINE 04/29/2005 5 - Intolerance HYDROCODONE 04/29/2005 3 - Cough 11 - Vomiting 12 - Shortness of Breath IBUPROFEN 04/29/2005 5 - Intolerance 8 - GI Upset LISINOPRIL 05/02/2014 3 - Cough OXYCODONE 03/07/2014 8 - GI Upset 10 - Anaphylaxis 14 - Other: See Comments Comments: Body aches. Hot flashes Date Reviewed: 04/14/2023 Reviewed by: Jayce Romero Cma - Fully Assessed Reason for Visit: Results [95] Primary Visit Diagnosis:Hypokalemia [E87.6] Order(s):potassium chloride (K-TAB) 10 mEq tabletTake 1 tablet by mouth daily with breakfast.Disp: 30 tabletRfl: 0 BASIC METABOLIC PNL [SQBMP] Order #: [id number] FUTURE Prescriptions as of 04/15/2023 - potassium chloride (K-TAB) 10 mEq tablet Take 1 tablet by mouth daily with breakfast. - atorvastatin (LIPITOR) 40 mg tablet Take 1 tablet by mouth daily at bedtime. For cholesterol. - pantoprazole DR (PROTONIX) 40 mg tablet Take 1 tablet by mouth two times a day. Take on empty stomach, 1/2 hr before meal. - losartan (COZAAR) 100 mg tablet Take 1 tablet by mouth once daily. - diclofenac (VOLTAREN) 1 % topical gel Apply 4 g to affected area four times daily. - hydroCHLOROthiazide 25 mg tablet Take 1 tablet by mouth once daily. - loratadine (CLARITIN) 10 mg tablet Take 1 tablet by mouth once daily. - cyclobenzaprine (FLEXERIL) 10 mg tablet Take 1 tablet by mouth three times daily as needed for muscle spasm. - cyanocobalamin (VITAMIN B-12) 1,000 mcg tab Take 1 tablet by mouth once daily. - Vitamin E, dl, acetate, (VITAMIN E) 400 unit capsule Take 1 capsule by mouth twice daily. Per Gastro: Dr. Corona - ursodiol (ACTIGALL) 300 mg capsule Take 1 capsule by mouth twice daily. Per Gastro: Dr. Corona - ergocalciferol 50,000 unit capsule (VITAMIN D2, DRISDOL) Take 1 capsule by mouth one time a week. Problem List As Of Date 04/15/2023 Noted Resolved Essential hypertension [I10] 03/09/2013 Mixed hyperlipidemia [E78.2] 03/22/2013 LPRD (laryngopharyngeal reflux disease) [K21.9] 05/11/2013 Former smoker [Z87.891] 05/11/2013 Right upper quadrant pain [R10.11] 02/14/2014 12/30/2016 Bile leak [K83.9] 04/01/2014 12/30/2016 Obesity, Class II, BMI 35-39.9 [E66.9] 08/31/2015 Carotid stenosis, bilateral [I65.23] 12/30/2016 Well adult exam [Z00.00] 07/17/2020 Tubular adenoma polyp of rectum [D12.8] 07/17/2020 Endometrial hyperplasia without atypia [N85.00] 12/18/2020 Vitamin D deficiency [E55.9] 10/01/2021 Elevated fasting glucose [R73.01] 10/02/2021 Low serum vitamin B12 [E53.8] 10/02/2021 Pancreatic cyst [K86.2] 11/09/2021 Elevated alkaline phosphatase level [R74.8] 12/05/2021 Liver fibrosis [K74.00] 01/16/2022 Prescriptions ordered this encounter Disp Refills Start End POTASSIUM CHLORIDE ER 10 MEQ TABLET,* 30 t* 0 04/15/2023 Route: ORAL Sig: Take 1 tablet by mouth daily with breakfast. Encounter Status:Closed by WORKMAN JAYCE GAINES on 04/15/[address] [facility] CNOVon 04-14-2023 CNOV Office Visit (FAMPWS ) -------- ISABEL SAHNI ([id number]) 1955 F Date Time Provider Department 04/14/23 3:40 PM JUANY LAWRENCE During your visit today, we recorded the following information about you: Pulse Respiration Blood pressure Weight 78/minute 18/minute 134/82 97.5 kg Juany Lawrence, RENETTA.DIVORCE MEDIATOR 04/14/2023 3:57 PM Signed Chief Complaint Patient presents with: 6 Month Exam HPI Isabelkatherine Sahni is a 67 year old female [...] she hurt it at work. Works at [employer] and stands a lot throughout her shift. [...] DILAT SPX 03/13/2010 ERCP 2013 with stent ESOPHAGOGASTRODUODENOSCO PY TRANSORAL DIAGNOSTIC 05/05/2014 EGD ESOPHAGOGASTRODUODENOSCO PY TRANSORAL DIAGNOSTIC 09/14/2015 EGD HYSTEROSCOPY BX ENDOMETRIUMAND/POLYPC [...] 2012 Years since quittin.7 Smokeless tobacco: Never Vap (more content not included)... Normal [facility] Comprehensive metabolic 2000 panelon 04-14-2023 Albumin [Mass/Vol] 4.1 g/dL Normal 3.9-4.9 [facility] Comment on above: Order Comment: Speci men Type: BLOOD SPECIMENOrdering Facility: [facility] Address: [address] [address] Performed By: #### 2 4323-8 ####[facility] LABCLIA [id number] [place] [address] [place] ALP [Catalytic activity/Vol] 102 U/L Normal 34-[address] [facility] Comment on above: Order Comment: Speci men Type: BLOOD SPECIMENOrdering Facility: [facility] Address: [address] [address] Performed By: #### 2 4323-8 ####[facility] LABCLIA [id number] [place] [address] [place] ALT [Catalytic activity/Vol] 15 U/L Normal 7-[address] [facility] Comment on above: Order Comment: Speci men Type: BLOOD SPECIMENOrdering Facility: [facility] Address: [address] [place] [address] Performed By: #### 2 4323-8 ####[facility] LABCLIA [id number] [place] [address] [place] Anion gap [Moles/Vol] 13 mmol/L Normal 9-[address] [facility] Comment on above: Order Comment: Speci men Type: BLOOD SPECIMENOrdering Facility: [facility] Address: [address] [place] [address] Performed By: #### 2 4323-8 ####[facility] LABCLIA [id number] [place] [address] [place] AST [Catalytic activity/Vol] 16 U/L Normal 13-[address] [facility] Comment on above: Order Comment: Speci men Type: BLOOD SPECIMENOrdering Facility: [facility] Address: [address] [place] [address] Performed By: #### 2 4323-8 ####[facility] LABCLIA [id number] [place] [address] [place] Bilirubin [Mass/Vol] 0.7 mg/dL Normal 0.2-1.[address] [facility] Comment on above: Order Comment: Speci men Type: BLOOD SPECIMENOrdering Facility: [facility] Address: [address] [place], [place] [id number] Performed By: #### 2 4323-8 ####[facility] LABCLIA [id number] [place] [address] [place] Calcium [Mass/Vol] 8.7 mg/dL Normal 8.5-10.2 [facility] Comment on above: Order Comment: Speci men Type: BLOOD SPECIMENOrdering Facility: [facility] Address: [address] [address] Performed By: #### 2 4323-8 ####[facility] LABCLIA [id number] [place] [address] [place] Chloride [Moles/Vol] 103 mmol/L Normal 97-[address] [facility] Comment on above: Order Comment: Speci men Type: BLOOD SPECIMENOrdering Facility: [facility] Address: [address] [address] Performed By: #### 2 4323-8 ####[facility] LABCLIA [id number] [place] [address] [place] CO2 [Moles/Vol] 23 mmol/L Normal 22-[address] [facility] Comment on above: Order Comment: Speci men Type: BLOOD SPECIMENOrdering Facility: [facility] Address: [address] Performed By: #### 2 4323-8 ####[facility] LABCLIA [id number] [place] [address] [place] Creatinine [Mass/Vol] 1.03 mg/dL High 0.58-0.[address] [facility] Comment on above: Order Comment: Speci men Type: BLOOD SPECIMENOrdering Facility: [facility] Address: [address] Performed By: #### 2 4323-8 ####[facility] LABCLIA [id number] [place] [address] [place] Creatinine and Glomerular filtration rate.predicted panel (S/P/Bld) 60 mL/min/1.73m??? Normal >=[address] [facility] Comment on above: Order Comment: Speci men Type: BLOOD SPECIMENOrdering Facility: [facility] Address: [address] Result Comment: Mi mated Glomerular Filtration Rate (eGFR) is calculated using the 2020 CKD-EPI creatinine equation. This equation utilizes serum creatinine, sex, and age as parameters. The creatinine assay has traceable calibration to isotope dilution-mass spectrometry. Refer to KDIGO guidelines for clinical interpretation. In patients with unstable renal function, e.g. those with acute kidney injury, the eGFR may not accurately reflect actual GFR. Performed By: #### 2 4323-8 ####[facility] LABIA [id number] [place] [address] [place] Glucose [Mass/Vol] 99 mg/dL Normal 74-99 [facility] Comment on above: Order Comment: Sharath vincent Type: BLOOD SPECIMENOrdering Facility: [facility] Address: [address] [id number] Result Comment: The [place] Diabetes Association (ADA) provides guidance for cutoff values for fasting glucose and random glucose. The ADA defines fasting as no caloric intake for at least 8 hours. Fasting plasma glucose results between 100 to 125 mg/dL indicate increased risk for diabetes (prediabetes). Fasting plasma glucose results greater than or equal to 126 mg/dL meet the criteria for diagnosis of diabetes. In the absence of unequivocal hyperglycemia, results should be confirmed by repeat testing. In a patient with classic symptoms of hyperglycemia or hyperglycemic crisis, random plasma glucose results greater than or equal to 200 mg/dL meet the criteria for diagnosis of diabetes. Reference: Standards of Medical Care in Diabetes 2016, [place] [employer] Association. Diabetes Care. 2016.39(Suppl 1). Performed By: #### 2 4323-8 ####[facility] LABIA [id number] [place] [address] [place] Potassium [Moles/Vol] 3.3 mmol/L Low 3.7-5.[address] [facility] Comment on above: Order Comment: Sharath vincent Type: BLOOD SPECIMENOrdering Facility: [facility] Address: [address] [place] [address] Performed By: #### 2 4323-8 ####[facility] LABIA [id number] [address] [id number] [place] [address] Protein [Mass/Vol] 6.5 g/dL Normal 6.3-8.0 [facility] Comment on above: Order Comment: Speci men Type: BLOOD SPECIMENOrdering Facility: [facility] Address: [address] [place] [address] Performed By: #### 2 4323-8 ####[facility] LABCLIA [id number] [address] [place] Sodium [Moles/Vol] 139 mmol/L Normal 136-144 [facility] Comment on above: Order Comment: Speci men Type: BLOOD SPECIMENOrdering Facility: [facility] Address: [address] [place] [address] Performed By: #### 2 4323-8 ####[facility] LABCLIA [id number] [address] Urea nitrogen [Mass/Vol] 17 mg/dL Normal 7-[address] [facility] Comment on above: Order Comment: Speci men Type: BLOOD SPECIMENOrdering Facility: [facility] Address: [address] [place] [address] Performed By: #### 2 4323-8 ####[facility] LABCLIA [id number] [address] OF [place] CNOVon 03-21-2023 CNOV Office Visit (UCWSTR ) -------- ISABEL SAHNI ([id number]) 1955 F Date Time Provider Department 03/21/23 2:30 PM JOSSELYN [facility] During your visit today, we recorded the following information about you: Temperature Pulse Respiration Blood pressure 97 degrees 70/minute 18/minute 157/87 Weight 98.8 kg Josselyn Waters APRN.DIVORCE MEDIATOR 03/21/2023 2:57 PM Signed CC: Patient presents with: Cough: Congestion, body [...] DILAT SPX 03/13/2010 ERCP 2013 with stent ESOPHAGOGASTRODUODENOSCO PY TRANSORAL DIAGNOSTIC 05/05/2014 EGD ESOPHAGOGASTRODUODENOSCO PY TRANSORAL DIAGNOSTIC 09/14/2015 EGD HYSTEROSCOPY BX ENDOMETRIUMAND/POLYPC [...] Problem Relation Age of Onset Diabetes Mother Alcoho (more content not included)... Normal [facility] SRINATH SCREENINGon 12-10-2022 [facility] CBC W/DIFF/PLT (EXTERNAL LAB SINA)on 06-25-2022 BASO ABSOLUTE [facility] Basophils/100 WBC (Bld) 0.7 % [facility] EOS ABSOLUTE [facility] Eosinophils/100 WBC (Bld) 0.9 % [facility] Erythrocyte distribution width (RBC) [Ratio] 12.3 % 12.3 - 15.4 % [facility] Hematocrit (Bld) [Volume fraction] 40.2 % 37.5 - 51.0 % [facility] Hemoglobin (Bld) [Mass/Vol] 13.2 g/dL 12.6 - 17.7 g/dL [facility] Immature Gran % [facility] IMMATURE GRANS ABSOLUTE [facility] Lymphocytes (Bld) [#/Vol] 2.05 10*3/uL 0.7 - 3.1 k/uL [facility] Lymphocytes/100 WBC (Bld) 36.7 % [facility] MCH 32.6 Pg 26.6 - 33 Pg [facility] MCHC (RBC) [Mass/Vol] 32.8 g/dL 31.5 - 35.7 g/dL [facility] MCV (RBC) [Entitic vol] 99.3 fL Abnormal 79 - 97 fL [facility] MONOCYTES ABSOLUTE [facility] Monocytes/100 WBC (Bld) 7.9 % [facility] NEUTROPHILS ABSOLUTE 3.0 k/uL 1.4 - 7.0 k/uL [facility] Neutrophils/100 WBC (Bld) 53.4 % [facility] Platelets (Bld) [#/Vol] 190 10*3/uL 150 - 379 k/uL [facility] RBC (Bld) [#/Vol] 4.05 10*6/uL Abnormal 4.14 - 5.8 0 M/uL [facility] WBC (Bld) [#/Vol] 5.6 10*3/uL 3.4 - 10.8 K/uL [facility] CMP (EXTERNAL)on 06-25-2022 Albumin [Mass/Vol] 3.5 g/dL 3.2 - 4.6 gm/dL [facility] Alk Phos Total 100 U/L 45 - 117 U/L [facility] ALT [Catalytic activity/Vol] 28 U/L 12 - 78 U/L [facility] AST [Catalytic activity/Vol] 17 U/L 8 - 37 U/L [facility] Bili Total 0.5 mg/dL 0.2 - 1 mg/dL [facility] Calcium [Mass/Vol] 8.9 mg/dL 8.5 - 10. 1 mg/dL [facility] Chloride [Moles/Vol] 106 mmol/L 98 - 107 MEQ/L [facility] CO2 [Moles/Vol] 29 mmol/L 21 - 32 MEQ/L [facility] Creatinine [Mass/Vol] 1.04 mg/dL 0.6 - 1.3 MG/DL [facility] GFR AFR AMER 68 mL/MIN [facility] GFR/1.73 sq M.predicted among non-blacks MDRD (S/P/Bld) [Vol rate/Area] 57 mL/min/{1.73_m2} [facility] Glucose [Mass/Vol] 136 mg/dL Abnormal 74 - 106 MG/DL Cl [facility] Potassium [Moles/Vol] 3.4 mmol/L Abnormal 3.5 - 5.1 mmol/L [facility] Protein [Mass/Vol] 7.1 g/dL 6.4 - 8.2 gm/dL [facility] Sodium [Moles/Vol] 140 mmol/L 136 - 145 mmol/L [facility] Urea nitrogen [Mass/Vol] 14 mg/dL 7 - 18 MG/DL [facility] XR KNEE GENERAL 4V AP BOTH/P A BOTH/LAT/MERC BILATERALon 05-20-2022 [facility] XR Knee - bilateral 4 Viewso n 05-20-2022 IMPRESSION: Mild bilateral patellofemoral compartment and moderate LEFT medial compartment osteoarthritis. [employer] Cartoonist: PSCB Transcribe Date/Time: May 20 2022 12:21P Dictated by : ALICIA CESAR DO This examination was interpreted and the report reviewed and electronically signed by: ALICIA CESAR DO on May 20 2022 12:25PM [facility] DIVISION OF RADIOLOGY * * *Final Report* * * DATE OF EXAM: May 20 2022 12:20PM WOX [id number] - XR KNEE 4V AP/PA/LAT/MERCH CHRISTOS / PROCEDURE REASON: multiple diagnoses * * * * Physician Interpretation * * * * EXAMINATION: XR KNEE 4V AP/PA/LAT/MERCH CHRISOTS PATIENT/TECHNOLOGIST PROVIDED HISTORY: bilateral knee pain CLINICAL INFORMATION: 66 years old Female with Pain in both knees, unspecified chronicity TECHNIQUE: XR KNEE 4V AP/PA/LAT/MERCH CHRISTOS Laterality: BILATERAL Number of different views (projections): 4 views of each knee. COMPARISON: None RESULT: Right knee: Mild degenerative subchondral changes in the patellofemoral compartment with small marginal osteophytes. Tibiofemoral joint spaces are maintained with small marginal osteophytes. No joint effusion. No fracture. Left knee: Moderate medial compartment joint space narrowing with subchondral sclerosis and small marginal osteophytes. Medial compartment chondrocalcinosis. Mild degenerative subchondral changes with small marginal osteophytes in the patellofemoral compartment. No joint effusion. No fracture. DIVISION OF RADIOLOGY Provider, [facility] - 05/20/2022 * * *Final Report* * * DATE OF EXAM: May 20 2022 12:20PM WOX 5618 - XR KNEE 4V AP/PA/LAT/MERCH CHRISTOS / PROCEDURE REASON: multiple diagnoses * * * * Physician Interpretation * * * * EXAMINATION: XR KNEE 4V AP/PA/LAT/MERCH CHRISTOS PATIENT/TECHNOLOGIST PROVIDED HISTORY: bilateral knee pain CLINICAL INFORMATION: 66 years old Female with Pain in both knees, unspecified chronicity TECHNIQUE: XR KNEE 4V AP/PA/LAT/MERCH CHRISTOS Laterality: BILATERAL Number of different views (projections): 4 views of each knee. COMPARISON: None RESULT: Right knee: Mild degenerative subchondral changes in the patellofemoral compartment with small marginal osteophytes. Tibiofemoral joint spaces are maintained with small marginal osteophytes. No joint effusion. No fracture. Left knee: Moderate medial compartment joint space narrowing with subchondral sclerosis and small marginal osteophytes. Medial compartment chondrocalcinosis. Mild degenerative subchondral changes with small marginal osteophytes in the patellofemoral compartment. No joint effusion. No fracture. IMPRESSION IMPRESSION: Mild bilateral patellofemoral compartment and moderate LEFT medial compartment osteoarthritis. [employer] Cartoonist: MARIA DOLORES Transcribe Date/Time: May 20 2022 12:21P Dictated by : ALICIA CESAR DO This examination was interpreted and the report reviewed and electronically signed by: ALICIA CESAR DO on May 20 2022 12:25PM EST [facility] Radiology Study observation (narrative) [facility] XR Knee - bilateral 4 ViewsO rdered By: Ccphilip Provider on 05-20-2022 [facility] XR LUMBAR GENERAL 3V AP/LAT/ L5-S1on 05-07-2022 [facility] XR Lumbar spine 3 Viewson IMPRESSION: Osteopenia, scoliotic curvature and degenerative change as detailed in report. [employer] Cartoonist: MARIA DOLORES Transcribe Date/Time: May 07 2022 1:12P Dictated by : JOSE ANTONIO BURKETT MD This examination was interpreted and the report reviewed and electronically signed by: JOSE ANTONIO BURKETT MD on May 07 2022 1:14PM [facility] DIVISION OF RADIOLOGY * * *Final Report* * * DATE OF EXAM: May 07 2022 11:18AM WOX [id number] - XR LUMBAR 3V AP/LAT/L5-S1 / PROCEDURE REASON: multiple diagnoses * * * * Physician Interpretation * * * * EXAMINATION: XR LUMBAR 3V AP/LAT/L5-S1 HISTORY: Chronic midline low back pain without sciatica. No acute trauma. TECHNIQUE: XR LUMBAR 3V AP/LAT/L5-S1 Laterality: NOT APPLICABLE Number of different views (projections): 3 M: XB_1 COMPARISON: There are no prior relevant examinations available for comparison within the [facility] Imaging Archives. RESULT: Counting reference: Lumbosacral junction. For the purposes of this report, L5-S1 is considered the last lumbar-type disc space and L4-5 is considered the level of the iliac crest. 3 Views of the lumbosacral spine with AP, lateral and cone-down radiographs demonstrate osteopenia, scoliotic curvature and multilevel degenerative change with vertebral body osteophytosis. There is moderate intervertebral disc space narrowing at all lumbar levels. There is hypertrophic facet change at the lower 3 levels. Some loss of the normal thoracolumbar lordosis with 2 to 3 mm retrolisthesis of L1 on L2 and L2 on L3 noted. There are no acute compression fractures and alignment is otherwise well maintained. The soft tissues are unremarkable. DIVISION OF RADIOLOGY Provider, [facility] - 05/07/2022 * * *Final Report* * * DATE OF EXAM: May 07 2022 11:18AM WOX [id number] - XR LUMBAR 3V AP/LAT/L5-S1 / PROCEDURE REASON: multiple diagnoses * * * * Physician Interpretation * * * * EXAMINATION: XR LUMBAR 3V AP/LAT/L5-S1 HISTORY: Chronic midline low back pain without sciatica. No acute trauma. TECHNIQUE: XR LUMBAR 3V AP/LAT/L5-S1 Laterality: NOT APPLICABLE Number of different views (projections): 3 M: XB_1 COMPARISON: There are no prior relevant examinations available for comparison within the [facility] Imaging Archives. RESULT: Counting reference: Lumbosacral junction. For the purposes of this report, L5-S1 is considered the last lumbar-type disc space and L4-5 is considered the level of the iliac crest. 3 Views of the lumbosacral spine with AP, lateral and cone-down radiographs demonstrate osteopenia, scoliotic curvature and multilevel degenerative change with vertebral body osteophytosis. There is moderate intervertebral disc space narrowing at all lumbar levels. There is hypertrophic facet change at the lower 3 levels. Some loss of the normal thoracolumbar lordosis with 2 to 3 mm retrolisthesis of L1 on L2 and L2 on L3 noted. There are no acute compression fractures and alignment is otherwise well maintained. The soft tissues are unremarkable. IMPRESSION IMPRESSION: Osteopenia, scoliotic curvature and degenerative change as detailed in report. [employer] Cartoonist: PSCB Transcribe Date/Time: May 07 2022 1:12P Dictated by : JOSE ANTONIO BURKETT MD This examination was interpreted and the report reviewed and electronically signed by: JOSE ANTONIO BURKETT MD on May 07 2022 1:14PM [facility] Radiology Study observation (narrative) [facility] XR Lumbar spine 3 ViewsOrder ed By: Ccf Provider on 05-07-2022 [facility] COLONOSCOPY SCREENINGon - [facility] HBA1C (OUTSIDE)on 01-22-2022 HbA1c (Bld) [Mass fraction] 5.8 % Abnormal 3.8 - 5.6 % [facility] No Panel Informationon 12-24 [facility] MRI PANC/CHRISTOS WO/W IVCONon Radiology Result ACTIONABLE Abnormal [facility] US ABD RT UPPER QUADRANTon 0 10-15-2021 [facility] Large Joint Arthro/Inj: R lott bacromial bursa [facility] Vital Signs Date Time Vital Sign Value Performing Clinician Faci lity 11-10-2023 10:27-0400 Body mass index (BMI) [Ratio] 31.63 kg/m2 Gill Hoover APRN.DIVORCE MEDIATOR Work Phone: [facility] 11-10-2023 10:27-0400 Body weight 94.35 kg Gill Hoover APRN.DIVORCE MEDIATOR Work Phone: [facility] 11-10-2023 10:27-0400 Diastolic blood pressure 78 mm[Hg] Gill Hoover APRN.DIVORCE MEDIATOR Work Phone: [facility] 11-10-2023 10:27-0400 Systolic blood pressure 126 mm[Hg] Gill Hoover APRN.DIVORCE MEDIATOR Work Phone: [facility] 11-04-2023 10:17-0400 Body height 172.7 cm Franklin Arias MD Work Phone: [facility] 11-04-2023 10:17-0400 Body mass index (BMI) [Ratio] 31.93 kg/m2 Franklin Arias MD Work Phone: [facility] 11-04-2023 10:17-0400 Body weight 95.25 kg Franklin Arias MD Work Phone: [facility] 11-04-2023 10:17-0400 Diastolic blood pressure 84 mm[Hg] Franklin Arias MD Work Phone: [facility] 11-04-2023 10:17-0400 Heart rate 76 /min Franklin Arias MD Work Phone: [facility] 11-04-2023 10:17-0400 Respiratory rate 16 /min Franklin Arias MD Work Phone: [facility] 11-04-2023 10:17-0400 Systolic blood pressure 126 mm[Hg] Franklin Arias MD Work Phone: [facility] 03-21-2023 14:33-0400 Body temperature 97 [degF] Josselyn Waters APRN.DIVORCE MEDIATOR Work Phone: [facility] 03-21-2023 14:33-0400 Body weight 98.79 kg Josselyn Waters APRN.DIVORCE MEDIATOR Work Phone: [facility] 03-21-2023 14:33-0400 Diastolic blood pressure 87 mm[Hg] Josselyn Waters APRN.DIVORCE MEDIATOR Work Phone: [facility] 03-21-2023 14:33-0400 Heart rate 70 /min Josselyn Waters APRN.DIVORCE MEDIATOR Work Phone: [facility] 03-21-2023 14:33-0400 Respiratory rate 18 /min Josselyn Waters APRN.DIVORCE MEDIATOR Work Phone: [facility] 03-21-2023 14:33-0400 SaO2% (BldA) [Mass fraction] 96 % Josselyn Waters APRN.DIVORCE MEDIATOR Work Phone: [facility] 03-21-2023 14:33-0400 Systolic blood pressure 157 mm[Hg] Josselyn Waters APRN.DIVORCE MEDIATOR Work Phone: [facility] 11-05-2022 13:45-0400 Body temperature 97.81 [degF] Krislyn Aberegg PA Work Phone: [facility] 11-05-2022 13:45-0400 Body weight 100.25 kg Krislyn Aberegg PA Work Phone: [facility] 11-05-2022 13:45-0400 Diastolic blood pressure 70 mm[Hg] Krislyn Aberegg PA Work Phone: [facility] 11-05-2022 13:45-0400 Heart rate 78 /min Krislyn Aberegg PA Work Phone: [facility] 11-05-2022 13:45-0400 Respiratory rate 16 /min Krislyn Aberegg PA Work Phone: [facility] 11-05-2022 13:45-0400 SaO2% (BldA) [Mass fraction] 98 % Krislyn Aberegg PA Work Phone: [facility] 11-05-2022 13:45-0400 Systolic blood pressure 132 mm[Hg] Krislyn Aberegg PA Work Phone: [facility] 10-08-2022 10:12-0400 Body height 165 cm Cecily Coelho PA-C Work Phone: [facility] 10-08-2022 10:12-0400 Body temperature 97.39 [degF] Cecily Coelho PA-C Work Phone: [facility] 10-08-2022 10:12-0400 Body weight 97.52 kg Cecily Coelho PA-C Work Phone: [facility] 10-08-2022 10:12-0400 Diastolic blood pressure 88 mm[Hg] Cecily Coelho PA-C Work Phone: [facility] 10-08-2022 10:12-0400 Heart rate 60 /min Cecily Coelho PA-C Work Phone: [facility] 10-08-2022 10:12-0400 Respiratory rate 18 /min Cecily Coelho PA-C Work Phone: [facility] 10-08-2022 10:12-0400 Systolic blood pressure 132 mm[Hg] Cecily Coelho PA-C Work Phone: [facility] 05-20-2022 11:31-0500 Body temperature 97.81 [degF] Hal Desai MD Work Phone: [facility] 05-20-2022 11:31-0500 Body weight 97.98 kg Hal Desai MD Work Phone: [facility] 05-20-2022 11:31-0500 Diastolic blood pressure 76 mm[Hg] Hal Desai MD Work Phone: [facility] 05-20-2022 11:31-0500 Heart rate 70 /min Hal Desai MD Work Phone: [facility] 05-20-2022 11:31-0500 Respiratory rate 16 /min Hal Desai MD Work Phone: [facility] 05-20-2022 11:31-0500 SaO2% (BldA) [Mass fraction] 98 % Hal Desai MD Work Phone: [facility] 05-20-2022 11:31-0500 Systolic blood pressure 124 mm[Hg] Hal Desai MD Work Phone: [facility] 05-14-2022 09:30-0400 Body height 160 cm Florencia Louann PA-C Work Phone: [facility] 05-14-2022 09:30-0400 Body temperature 97.11 [degF] Florencia Louann PA-C Work Phone: [facility] 05-14-2022 09:30-0400 Body weight 99.34 kg Florencia Louann PA-C Work Phone: [facility] 05-14-2022 09:30-0400 Diastolic blood pressure 84 mm[Hg] Florencia Louann PA-C Work Phone: [facility] 05-14-2022 09:30-0400 Heart rate 72 /min Florencia Louann PA-C Work Phone: [facility] 05-14-2022 09:30-0400 SaO2% (BldA) [Mass fraction] 96 % Florencia [place] PA-C Work Phone: [facility] 05-14-2022 09:30-0400 Systolic blood pressure 152 mm[Hg] Florencia [place] PA-C Work Phone: [facility] 05-07-2022 10:28-0400 Body temperature 97.9 [degF] Cecily Coelho PA-C Work Phone: [facility] 05-07-2022 10:28-0400 Body weight 98.43 kg Cecily Coelho PA-C Work Phone: [facility] 05-07-2022 10:28-0400 Diastolic blood pressure 80 mm[Hg] Cecily Coelho PA-C Work Phone: [facility] 05-07-2022 10:28-0400 Heart rate 68 /min Cecily Coelho PA-C Work Phone: [facility] 05-07-2022 10:28-0400 Respiratory rate 18 /min Cecily Coelho PA-C Work Phone: [facility] 05-07-2022 10:28-0400 Systolic blood pressure 112 mm[Hg] Cecily Coelho PA-C Work Phone: [facility] 04-09-2022 09:23-0400 Diastolic blood pressure 84 mm[Hg] Franklin Arias MD Work Phone: [facility] 04-09-2022 09:23-0400 Systolic blood pressure 164 mm[Hg] Franklin Arias MD Work Phone: [facility] 04-09-2022 09:00-0400 Body weight 100.25 kg Franklin Arias MD Work Phone: [facility] 04-09-2022 09:00-0400 Heart rate 72 /min Franklin Arias MD Work Phone: [facility] 04-09-2022 09:00-0400 Respiratory rate 16 /min Franklin Arias MD Work Phone: [facility] 03-12-2022 12:18-0400 Diastolic blood pressure 72 mm[Hg] Riley Farrell MD Work Phone: [facility] 03-12-2022 12:18-0400 Heart rate 61 /min Riley Farrell MD Work Phone: [facility] 03-12-2022 12:18-0400 Respiratory rate 16 /min Riley Farrell MD Work Phone: [facility] 03-12-2022 12:18-0400 SaO2% (BldA) [Mass fraction] 94 % Riley Farrell MD Work Phone: [facility] 03-12-2022 12:18-0400 Systolic blood pressure 133 mm[Hg] Riley Farrell MD Work Phone: [facility] 03-12-2022 10:00-0400 Body temperature 97.39 [degF] Riley Farrell MD Work Phone: [facility] 01-08-2022 13:04-0400 Body temperature 98.29 [degF] Cecily Coelho PA-C Work Phone: [facility] 01-08-2022 13:04-0400 Body weight 99.34 kg Cecily Coelho PA-C Work Phone: [facility] 01-08-2022 13:04-0400 Diastolic blood pressure 64 mm[Hg] Cecily Coelho PA-C Work Phone: [facility] 01-08-2022 13:04-0400 Heart rate 68 /min Cecily Coelho PA-C Work Phone: [facility] 01-08-2022 13:04-0400 Respiratory rate 18 /min Cecily Coelho PA-C Work Phone: [facility] 01-08-2022 13:04-0400 Systolic blood pressure 110 mm[Hg] Cecily Coelho PA-C Work Phone: [facility] 12-25-2021 10:33-0400 Diastolic blood pressure 89 mm[Hg] Cecily Coelho PA-C Work Phone: [facility] 12-25-2021 10:33-0400 Heart rate 70 /min Cecily Coelho PA-C Work Phone: [facility] 12-25-2021 10:33-0400 Systolic blood pressure 163 mm[Hg] Cecilychar Coelho PA-C Work Phone: [facility] 12-25-2021 10:17-0400 Body temperature 98.01 [degF] Cecilyyahir Coelho PA-C Work Phone: [facility] 12-25-2021 10:17-0400 Body weight 98.88 kg Cecilychar Coelho PA-C Work Phone: [facility] 12-25-2021 10:17-0400 Respiratory rate 18 /min Cecilychar Coelho PA-C Work Phone: [facility] 12-25-2021 10:17-0400 SaO2% (BldA) [Mass fraction] 98 % Cecilyyahir Coelho PA-C Work Phone: [facility] 12-24-2021 11:00-0400 Diastolic blood pressure 94 mm[Hg] David Palmer MD Work Phone: [facility] 12-24-2021 11:00-0400 Heart rate 68 /min David Palmer MD Work Phone: [facility] 12-24-2021 11:00-0400 Respiratory rate 16 /min David Palmer MD Work Phone: [facility] 12-24-2021 11:00-0400 SaO2% (BldA) [Mass fraction] 92 % David Palmer MD Work Phone: [facility] 12-24-2021 11:00-0400 Systolic blood pressure 178 mm[Hg] David Palmer MD Work Phone: [facility] 12-24-2021 09:00-0400 Body temperature 97 [degF] David Palmer MD Work Phone: [facility] 12-24-2021 09:00-0400 Body weight 100.6 kg David Palmer MD Work Phone: [facility] 12-06-2021 08:15-0400 Body temperature 97.81 [degF] Hal Desai MD Work Phone: [facility] 12-06-2021 08:15-0400 Body weight 100.61 kg Hal Desai MD Work Phone: [facility] 12-06-2021 08:15-0400 Diastolic blood pressure 82 mm[Hg] Hal Desai MD Work Phone: [facility] 12-06-2021 08:15-0400 Heart rate 77 /min Hal Desai MD Work Phone: [facility] 12-06-2021 08:15-0400 Respiratory rate 16 /min Hal Desai MD Work Phone: [facility] 12-06-2021 08:15-0400 SaO2% (BldA) [Mass fraction] 97 % Hal Desai MD Work Phone: [facility] 12-06-2021 08:15-0400 Systolic blood pressure 144 mm[Hg] Hal Desai MD Work Phone: [facility] 10-22-2021 14:27-0400 Diastolic blood pressure 81 mm[Hg] Mi Nurse Work Phone: [facility] 10-22-2021 14:27-0400 Heart rate 74 /min Mi Nurse Work Phone: [facility] 10-22-2021 14:27-0400 Systolic blood pressure 124 mm[Hg] Mi Nurse Work Phone: [facility] 10-01-2021 13:37-0400 Diastolic blood pressure 89 mm[Hg] Cecily Coelho PA-C Work Phone: [facility] 10-01-2021 13:37-0400 Systolic blood pressure 174 mm[Hg] Cecily Coelho PA-C Work Phone: [facility] 10-01-2021 12:22-0400 Body height 164.5 cm Cecily Coelho PA-C Work Phone: [facility] 10-01-2021 12:22-0400 Body temperature 98.01 [degF] Cecily Coelho PA-C Work Phone: [facility] 10-01-2021 12:22-0400 Body weight 99.79 kg Cecily Coelho PA-C Work Phone: [facility] 10-01-2021 12:22-0400 Heart rate 72 /min Cecily Coelho PA-C Work Phone: [facility] 10-01-2021 12:22-0400 Respiratory rate 18 /min Cecily Coelho PA-C Work Phone: [facility] Encounters Encounter Date Encounter Type Care Provider Facility Start: 01-06-2024 Refill Franklin tavarez MD Work Phone: [facility] Comment on above: Refill Request Start: 12-16-2023 Documentation procedure Mammog clair Coordinator [facility] Department Start: 12-16-2023 Letter encounter Mammography Coordinator [facility] Department Start: 12-16-2023 Telephone encounter Franklin Arias MD Work Phone: [facility] Start: 12-15-2023 End: 12-15-2023 ambulatory FRANKLIN ARIAS Facility:[facility] Start: 12-15-2023 End: 12-15-2023 Subsequent hospital visit by physician Screen Mammo [facility] Comment on above: Encounter for screen ing mammogram for breast cancer [Z12.31] Start: 11-10-2023 Telephone encounter Gill delvalle APRN.DIVORCE MEDIATOR Work Phone: OB/Gynecology Comment on above: Patient Update Start: 11-10-2023 End: 11-10-2023 ambulatory FRANKLIN ARIAS Facility:[facility] Start: 11-10-2023 End: 11-10-2023 Patient encounter procedure Gill Hoover APRN.DIVORCE MEDIATOR Work Phone: OB/Gynecology Comment on above: Uterovaginal prolaps e (Primary Dx); Cystocele, midline Start: 11-06-2023 Telephone encounter Franklin Arias MD Work Phone: [facility] Comment on above: Results Start: 11-04-2023 End: 11-04-2023 ambulatory FRANKLIN ARIAS Facility:[facility] Start: 11-04-2023 End: 11-04-2023 ambulatory FRANKLIN ARIAS Facility:[facility] Start: 11-04-2023 End: 11-04-2023 Patient encounter procedure Franklin Arias MD Work Phone: [facility] Comment on above: Encounter for Medica re annual wellness exam (Primary Dx); Essential hypertension; Mixed hyperlipidemia; GERD without esophagitis; Elevated fasting glucose; Vitamin D deficiency; Low serum vitamin B12; Liver fibrosis; Vaginal anomaly; Obesity, Class I, BMI 30-34.9; Encounter for screening mammogram for breast cancer; Advance directive discussed with patient; Medication management Start: 10-27-2023 End: 10-27-2023 ambulatory FRANKLIN ARIAS Facility:[facility] Start: 10-27-2023 End: 10-27-2023 Patient encounter procedure Shantal CANTOR-Hussain Work Phone: Orthopaedics Comment on above: Acute pain of right shoulder (Primary Dx); Cervicalgia; Bursitis of right shoulder Start: 08-26-2023 Telephone encounter Shantal CANTOR-C Work Phone: Orthopaedics Comment on above: Results Start: 08-25-2023 End: 08-25-2023 Subsequent hospital visit by physician Charleen [facility] Silverman Work Phone: Radiology Comment on above: Cervicalgia [M54.2] Start: 08-25-2023 End: 08-25-2023 ambulatory JUANY LAWRENCE Facility:[facility] Start: 08-25-2023 End: 08-25-2023 Patient encounter procedure Shantal Rhodes PA-C Work Phone: Orthopaedics Comment on above: Bursitis of right sh oulder (Primary Dx); Acute pain of right shoulder; Cervicalgia Start: 08-18-2023 Refill Franklin tavarez MD Work Phone: [facility] Comment on above: Refill Request Start: 06-19-2023 End: 06-19-2023 Subsequent hospital visit by physician Charleen [facility] [place] Work Phone: Radiology Comment on above: Acute pain of right shoulder [M25.511] Start: 06-19-2023 End: 06-19-2023 ambulatory JUANY LAWRENCE Facility:[facility] Start: 04-15-2023 Telephone encounter Juany woodruff APRN.DIVORCE MEDIATOR Work Phone: [facility] [place] Comment on above: Results Start: 04-14-2023 End: 04-14-2023 ambulatory JUANY LAWRENCE Facility:[facility] Start: 03-21-2023 End: 03-21-2023 ambulatory FRANKLIN ARIAS Facility:[facility] Start: 03-21-2023 End: 03-21-2023 Patient encounter procedure Josselyn Waters APRN.DIVORCE MEDIATOR Work Phone: [facility] Comment on above: Acute cough (Primary Dx) Start: 12-11-2022 Telephone encounter Cecily nogueira PA-C Work Phone: [facility] Comment on above: Results Start: 12-10-2022 Documentation procedure Mammog clair Coordinator [facility] Start: 12-10-2022 Letter encounter Mammography Coordinator [facility] Department Start: 12-10-2022 End: 12-10-2022 Subsequent hospital visit by physician Screen Mammo [facility] Comment on above: Encounter for screen ing mammogram for breast cancer [Z12.31] Start: 11-05-2022 End: 11-05-2022 Patient encounter procedure Joao CANTOR Work Phone: [facility] Comment on above: Bacterial sinusitis (Primary Dx) Start: 10-09-2022 Telephone encounter Cecily nogueira PA-C Work Phone: [facility] [place] Comment on above: Results Start: 10-08-2022 End: 10-08-2022 Patient encounter procedure Cecily Coelho PA-C Work Phone: [facility] [place] Comment on above: Well adult exam ([facility] Dx); Essential hypertension; Mixed hyperlipidemia; Elevated fasting glucose; Low serum vitamin B12; Liver fibrosis; Carotid stenosis, bilateral; Obesity, Class II, BMI 35-39.9; Vitamin D deficiency; Encounter for screening mammogram for breast cancer; Encounter for immunization Start: 10-08-2022 End: 10-08-2022 Patient encounter status Cecily Coelho PA-C Work Phone: [facility] Start: 08-06-2022 Refill Franklin tavarez MD Work Phone: [facility] Comment on above: Refill Request Start: 06-27-2022 ambulatory Franklin tavarez MD Work Phone: [facility] Start: 05-20-2022 End: 05-20-2022 Subsequent hospital visit by physician Xr [facility] Work Phone: Radiology Comment on above: Pain in both knees, unspecified chronicity [M25.561, M25.562] Start: 05-20-2022 End: 05-20-2022 Patient encounter procedure Hal Desai MD Work Phone: [facility] Comment on above: Pain in both knees, unspecified chronicity (Primary Dx) Start: 05-14-2022 End: 05-14-2022 Patient encounter procedure Florencia Lew PA-C Work Phone: General Surgery Comment on above: History of colonic p olyps (Primary Dx); Tubular adenoma Start: 05-07-2022 Telephone encounter Cecily nogueira PA-C Work Phone: [facility] Comment on above: Results Start: 05-07-2022 End: 05-07-2022 Subsequent hospital visit by physician Xr [facility] Work Phone: Radiology Comment on above: Chronic midline low back pain without sciatica [M54.50, G89.29] Start: 05-07-2022 End: 05-07-2022 Patient encounter procedure Cecily Coelho PA-C Work Phone: [facility] Comment on above: Essential hypertensi on (Primary Dx); Chronic midline low back pain without sciatica Start: 04-29-2022 End: 04-29-2022 Nursing evaluation of patient and report Mi Nurse Work Phone: [facility] [place] Comment on above: Need for vaccination (Primary Dx); Need for influenza vaccination Start: 04-10-2022 Telephone encounter Franklin Arias MD Work Phone: [facility] [place] Comment on above: Results Start: 04-09-2022 End: 04-09-2022 Patient encounter procedure Franklin Arias MD Work Phone: [facility] Comment on above: Essential hypertensi on (Primary Dx); Mixed hyperlipidemia; Elevated fasting glucose; LPRD (laryngopharyngeal reflux disease); Carotid stenosis, bilateral; Vitamin D deficiency; Obesity, Class II, BMI 35-39.9; Low serum vitamin B12; Leg cramps Start: 03-12-2022 End: 03-12-2022 Subsequent hospital visit by physician Riley Farrell MD Work Phone: Ambulatory Surgery Comment on above: Screening for colon cancer [Z12.11] Start: 01-30-2022 Telephone encounter Cecily nogueira PA-C Work Phone: [facility] [place] Comment on above: Outside Labs Results Start: 01-09-2022 Telephone encounter Cecily nogueira PA-C Work Phone: [facility] [place] Comment on above: Results Start: 01-08-2022 End: 01-08-2022 Patient encounter procedure Cecily CANTOR-C Work Phone: [facility] [place] Comment on above: Essential hypertensi on (Primary Dx); Leg cramping; Vitamin D deficiency; Elevated vitamin B12 level; Screening for colon cancer; Mixed hyperlipidemia Start: 12-25-2021 Telephone encounter Cecily nogueira PA-C Work Phone: [facility] [place] Comment on above: Results; Patient Upd ate Start: 12-25-2021 End: 12-25-2021 Patient encounter procedure Cecily Coelho PA-C Work Phone: [facility] [place] Comment on above: Hypertension, essent ial (Primary Dx); Pancreatic cyst Start: 12-24-2021 Telephone encounter Sophia Waters MA [facility] [place] Comment on above: Patient Update; Appo intment Start: 12-24-2021 End: 12-24-2021 Subsequent hospital visit by physician David Palmer MD Work Phone: Ambulatory Surgery Comment on above: Screening for colon cancer [Z12.11] Start: 12-07-2021 Telephone encounter Josselyn Waters APRN.DIVORCE MEDIATOR Work Phone: [facility] Comment on above: Results Start: 12-06-2021 End: 12-06-2021 Patient encounter procedure Hal Desai MD Work Phone: [facility] Comment on above: URI, acute (Primary Dx) Start: 11-08-2021 Telephone encounter Cecily CANTOR-C Work Phone: Family [facility] [place] Comment on above: Results Start: 11-07-2021 End: 11-07-2021 Subsequent hospital visit by physician [facility] (I-Stat/1.5t) Work Phone: Radiology Comment on above: Abnormal results of liver function studies [R94.5] Start: 11-05-2021 Telephone encounter Florencia CANTOR-C Work Phone: General Surgery Comment on above: COLON ASC Start: 10-30-2021 Documentation procedure Mammog clair Coordinator [facility] Start: 10-30-2021 Letter encounter Mammography Coordinator [facility] Department Start: 10-30-2021 Telephone encounter Cecily CANTOR-Hussain Work Phone: [facility] [place] Comment on above: Results Start: 10-29-2021 End: 10-29-2021 Subsequent hospital visit by physician Screen Mammo [facility] Mammogram Comment on above: Screening mammogram for breast cancer [Z12.31] Start: 10-23-2021 Telephone encounter Cecily CANTOR-C Work Phone: [facility] [place] Comment on above: Orders Start: 10-22-2021 End: 10-22-2021 Nursing evaluation of patient and report Mi Nurse Work Phone: Family [facility] [place] Comment on above: Essential hypertensi on (Primary Dx) Start: 10-22-2021 Telephone encounter Franklin Arias MD Work Phone: [facility] [place] Comment on above: Blood Pressure Check Start: 10-16-2021 Patient encounter procedure Geraldine Okeefe MD Work Phone: [facility] Provider Adult Start: 10-16-2021 Telephone encounter Cecily nogueira PA-C Work Phone: [facility] [place] Comment on above: Results Start: 10-15-2021 End: 10-15-2021 Subsequent hospital visit by physician [facility] 1 Work Phone: Radiology Comment on above: Elevated alkaline ph osphatase level [R74.8] Start: 10-10-2021 Telephone encounter Cecily nogueira PA-C Work Phone: [facility] [place] Comment on above: Results Start: 10-02-2021 Telephone encounter Cecily nogueira PA-C Work Phone: [facility] [place] Comment on above: Results Start: 10-01-2021 End: 10-01-2021 Patient encounter procedure Cecily Coelho PA-C Work Phone: [facility] [place] Comment on above: Well adult exam ([facility] Dx); Essential hypertension; Mixed hyperlipidemia; Vitamin D deficiency; Tubular adenoma polyp of rectum; Former smoker; LPRD (laryngopharyngeal reflux disease); Carotid stenosis, bilateral; Leg cramp; Screening for diabetes mellitus; Screening mammogram for breast cancer; Need for vaccination; Encounter for immunization Start: 10-01-2021 End: 10-01-2021 Patient encounter status Cecily CANTOR-C Work Phone: [facility] [place] Start: 07-17-2020 End: 11-04-2023 Patient encounter status Franklin Arias MD Work Phone: [facility] Procedures Date Procedure Procedure Detail Performing Clinician Start: 11-04-2023 Adult depression scr eening assessment Xr [place] Work Phone: Start: 11-04-2023 Lipid 1996 panel - S rocky or Plasma Gill Hoover APRN.DIVORCE MEDIATOR Work Phone: Start: 08-25-2023 Arthrocentesis aspir &/inj major jt/bursa w/o us Shantal Rhodes PA-C Work Phone: Start: 08-25-2023 Radex spine cervical 4 or 5 views Shantal Rhodes PA-C Work Phone: Start: 06-19-2023 Radex shoulder compl ete minimum 2 views Juany Lawrence APRN.DIVORCE MEDIATOR Work Phone: Start: 12-10-2022 End: 12-10-2022 Mammography Cecily Nixon Work Phone: Start: 10-08-2022 Lipid 1996 panel - S rocky or Plasma Juany Lawrence THREAD PULLING MACHINE ATTENDANT.DIVORCE MEDIATOR Work Phone: Start: 06-25-2022 CBC W/DIFF/PLT ([facility]) [facility] Start: 06-25-2022 Comprehensive metabo lic 2000 panel - Serum or Plasma [facility] Start: 05-20-2022 Radiologic exam knee complete 4/more views Hal Desai MD Work Phone: Start: 05-07-2022 Radex spine lumbosac ral 2/3 views Cceily Coelho PA-C Work Phone: Start: 04-29-2022 INFLUENZA VACCINE QUADRIVALENT 6 MO - 64 YRS IM Cecily Coelho PA-C Work Phone: Start: 04-29-2022 [employer] COVI D-19 BIVALENT BOOSTER VACCINE, AGE 12+ YR Cecily Coelho PA-C Work Phone: Start: 03-12-2022 Colonoscopy flx dx w /collj spec when pfrmd David Palmer MD Work Phone: Start: 03-12-2022 Colonoscopy Riley orlando MD Work Phone: Start: 01-22-2022 Hemoglobin A1c/Hemoglobin.total in Blood [facility] Start: 06-28-2022 Adult depression scr eening assessment Cecily Coelho PA-C Work Phone: Start: 12-24-2021 Colon ca scrn not hi rsk ind Florencia Lew PA-C Work Phone: Start: 12-24-2021 Colonoscopy David marlow MD Work Phone: Start: 11-07-2021 Mri abdomen w/o & w/contrast material Cecily Coelho PA-C Work Phone: Start: 10-29-2021 SRINATH SCREENING W JENNIFER Ra codey Coelho PA-C Work Phone: Start: 10-29-2021 Mammography Screen Wst r Start: 10-15-2021 Us abdominal real ti me w/image limited Cecily Coelho PA-C Work Phone: Start: 04-11-2020 Mammography Cecily nogueira PA-C Work Phone: Start: 01-27-2017 Colonoscopy Cecily nogueira PA-C Work Phone: Start: 02-01-2016 Adult depression scr eening assessment Cecily Coelho PA-C Work Phone: Plan of Treatment Date Care Activity Detail Author Start: 2032 RSV Vaccine (1 - 1-dose 75+ series) RSV Vaccine (1 - 1-dose 75+ series) [facility] Start: 10-02-[address] [facility] Start: 11-03-2028 Lipid panel Lipid Screening [facility] Start: 10-09-2027 Lipid 1996 panel - Serum or Plasma Lipid Screening [facility] Start: 10-09-2027 Lipid panel Lipid Screening [facility] Start: 10-09-2027 LIPID SCREEN LIPID SCREEN [facility] Start: 04-09-2027 LIPID SCREEN LIPID SCREEN [facility] Start: 11-03-2026 Diabetes Screening Diabetes Screening [facility] Start: 10-01-2026 LIPID SCREEN LIPID SCREEN [facility] Start: 04-14-2026 Diabetes Screening Diabetes Screening [facility] Start: 02-05-2026 LIPID SCREEN LIPID SCREEN [facility] Start: 10-24-2025 HPV TESTING HPV TESTING [facility] Start: 10-24-2025 PAP TESTING PAP TESTING [facility] Start: 10-08-2025 DIABETES SCREEN DIABETES SCREEN [facility] Start: 06-25-2025 DIABETES SCREEN DIABETES SCREEN [facility] Start: 04-09-2025 DIABETES SCREEN DIABETES SCREEN [facility] Start: 03-12-2025 Colonoscopy COLONOSCOPY [facility] Start: 03-12-2025 COLORECTAL CANCER SCREENING COLORECTAL CANCER SCREENING [facility] Start: 01-22-2025 DIABETES SCREEN DIABETES SCREEN [facility] Start: 01-08-2025 DIABETES SCREEN DIABETES SCREEN [facility] Start: 12-24-2024 Colonoscopy COLONOSCOPY [facility] Start: 12-24-2024 COLORECTAL CANCER SCREENING COLORECTAL CANCER SCREENING [facility] Start: 12-14-2024 Screening for malignant neoplasm of breast Mammogram Screening [facility] Start: 11-09-2024 BP Controlled (<130/80) BP Controlled (<130/80) [facility] Start: 11-03-2024 Annual PCP Team Chronic Disease Visit Annual PCP Team Chronic Disease Visit [facility] Start: 11-03-2024 Anxiety Screening Anxiety Screening [facility] Start: 11-03-2024 Depression Screening Depression Screening [facility] Start: 11-03-2024 RSV Vaccine (1 - 1-dose 60+ series) RSV Vaccine (1 - 1-dose 60+ series) [facility] Comment on above: Postponed from 2017 (Insurance Cov erage) Start: 11-03-2024 Screening for osteoporosis Bone Density Screening [facility] Comment on above: Postponed from 2022 (Declined at t his time) Start: 10-08-2024 DIABETES SCREEN DIABETES SCREEN [facility] Start: 10-01-2024 DIABETES SCREEN DIABETES SCREEN [facility] Start: 06-19-2024 Annual PCP Team Chronic Disease Visit Annual PCP Team Chronic Disease Visit [facility] Start: 06-19-2024 BP Controlled (<130/80) BP Controlled (<130/80) [facility] Start: 05-04-2024 End: 05-04-2024 Patient encounter procedure 05/04/2024 1:40 PM EDT Office Visit [facility] [place] [address] [place], [place] [id number] Cecily Coelho PA-C [address] [facility] [place] [id number] 6 month follow up [facility] [place] Comment on above: 6 month follow up Start: 04-14-2024 Annual PCP Team Chronic Disease Visit Annual PCP Team Chronic Disease Visit [facility] Start: 03-14-2024 Covid-19 Vaccine ( season) Covid-19 Vaccine () [facility] Start: 03-14-2024 Covid-19 Vaccine () Covid-19 Vaccine () [facility] Start: 03-14-2024 Influenza vaccination Influenza Vaccine (#1) [facility] Start: 02-11-2024 End: 02-11-2024 Patient encounter procedure 02/11/2024 8:00 AM EDT Office Visit AIRCRAFT DELIVERY CHECKER [facility] [address] [facility] [address] [place] [address] Mireya Huitron MD [address] [facility] [address] [place] [address] Uterovaginal prolapse [N81.4] [employer]CRAFT DELIVERY CHECK[employer] [facility] Comment on above: Uterovaginal prolapse [N81.4] Start: 02-06-2024 DIABETES SCREEN DIABETES SCREEN [facility] Start: 12-15-2023 End: 12-15-2023 Patient encounter procedure 12/15/2023 11:10 AM EDT Appointment Mammogram [address] [place] [address] Encounter for screening mammogram for breast cancer [Z12.31] Mammogram Comment on above: Encounter for screening mammogram for br east cancer [Z12.31] Start: 12-11-2023 Mammography [facility] Start: 12-11-2023 Screening for malignant neoplasm of breast Mammogram Screening [facility] Start: 11-10-2023 End: 11-10-2023 Patient encounter procedure 11/10/2023 10:45 AM EDT Office Visit OB/Gynecology [address] [place] [address] Gill Hoover, RENETTA.DIVORCE MEDIATOR [address] [place] [address] Patient noticing a bulge from her vagina. No pain. OB/Gynecology Comment on above: Patient noticing a bulge from her vagina . No pain. Start: 11-04-2023 End: 02-03-2024 25-hydroxyvitamin D3 [Mass/volume] in Serum or Plasma [facility] Comment on above: Expected: 11/04/2023, Expires: Start: 11-04-2023 End: 02-03-2024 Cobalamin (Vitamin B12) [Mass/volume] in Serum or Plasma [facility] Comment on above: Expected: 11/04/2023, Expires: Start: 11-04-2023 End: 02-03-2024 Comprehensive metabolic 2000 panel - Serum or Plasma [facility] Comment on above: Expected: 11/04/2023, Expires: Start: 11-04-2023 End: 02-03-2024 LIPID PANEL, NONFASTING [facility] Comment on above: Expected: 11/04/2023, Expires: Start: 11-04-2023 End: 02-03-2024 Magnesium [Mass/volume] in Serum or Plasma [facility] Comment on above: Expected: 11/04/2023, Expires: Start: 10-09-2023 ANNUAL PCP TEAM CHRONIC DISEASE VISIT ANNUAL PCP TEAM CHRONIC DISEASE VISIT [facility] Start: 08-15-2023 Covid-19 Vaccine (6 - Pfizer series) Covid-19 Vaccine (6 - Pfizer series) [facility] Start: 08-15-2023 Covid-19 Vaccine () Covid-19 Vaccine () [facility] Start: 07-14-2023 Advance Directive Discussion Advance Directive Discussion [facility] Start: 07-14-2023 Behavioral Health Screening Behavioral Health Screening [facility] Start: 07-14-2023 Depression Assessment Depression Assessment [facility] Start: 06-03-2023 ANNUAL PCP TEAM CHRONIC DISEASE VISIT ANNUAL PCP TEAM CHRONIC DISEASE VISIT [facility] Start: 06-03-2023 BP CONTROLLED (<130/80) BP CONTROLLED (<130/80) [facility] Start: 05-20-2023 BP CONTROLLED (<130/80) BP CONTROLLED (<130/80) [facility] Start: 05-07-2023 ANNUAL PCP TEAM CHRONIC DISEASE VISIT ANNUAL PCP TEAM CHRONIC DISEASE VISIT [facility] Start: 04-22-2023 End: 06-22-2023 Basic metabolic 2000 panel - Serum or Plasma BASIC METABOLIC PNL Lab Routine Hypokalemia Expected: 04/22/2023, Expires: 06/22/2023 [facility] Work Phone: Comment on above: Expected: 04/22/2023, Expires: 3 Start: 04-09-2023 ANNUAL PCP TEAM CHRONIC DISEASE VISIT ANNUAL PCP TEAM CHRONIC DISEASE VISIT [facility] Start: 03-14-2023 Influenza vaccination INFLUENZA (#1) [facility] Start: 03-12-2023 Colonoscopy COLONOSCOPY [facility] Start: 03-12-2023 COLORECTAL CANCER SCREENING COLORECTAL CANCER SCREENING [facility] Start: 03-12-2023 Screening for malignant neoplasm of colon [facility] Start: 01-08-2023 Adult depression screening assessment DEPRESSION SCREENING [facility] Start: 01-08-2023 ANNUAL PCP TEAM CHRONIC DISEASE VISIT ANNUAL PCP TEAM CHRONIC DISEASE VISIT [facility] Start: 01-08-2023 BP CONTROLLED (<130/80) BP CONTROLLED (<130/80) [facility] Start: 12-25-2022 ANNUAL PCP TEAM CHRONIC DISEASE VISIT ANNUAL PCP TEAM CHRONIC DISEASE VISIT [facility] Start: 12-03-2022 SHINGRIX VACCINE (2 of 2) SHINGRIX VACCINE (2 of 2) [facility] Start: 10-29-2022 Mammography MAMMOGRAM [facility] Start: 10-08-2022 End: 12-08-2022 25-hydroxyvitamin D3 [Mass/volume] in Serum or Plasma [facility] Work Phone: Comment on above: Expected: 10/08/2022, Expires: 3 Start: 10-08-2022 End: 12-08-2022 Cobalamin (Vitamin B12) [Mass/volume] in Serum or Plasma [facility] Work Phone: Comment on above: Expected: 10/08/2022, Expires: 3 Start: 10-08-2022 End: 12-08-2022 Comprehensive metabolic 2000 panel - Serum or Plasma [facility] Work Phone: Comment on above: Expected: 10/08/2022, Expires: 3 Start: 10-08-2022 End: 12-08-2022 Hemoglobin A1c in Blood [facility] Work Phone: Comment on above: Expected: 10/08/2022, Expires: 3 Start: 10-08-2022 End: 12-08-2022 LIPID PANEL, NONFASTING [facility] Work Phone: Comment on above: Expected: 10/08/2022, Expires: 3 Start: 10-01-2022 ANNUAL PCP TEAM CHRONIC DISEASE VISIT ANNUAL PCP TEAM CHRONIC DISEASE VISIT [facility] Start: 10-01-2022 HEPATITIS C SCREENING HEPATITIS C SCREENING [facility] Comment on above: Postponed from 1975 (Declined at t his time) Start: 10-01-2022 HIV SCREENING HIV SCREENING [facility] Comment on above: Postponed from 1975 (Declined at t his time) Start: 10-01-2022 PNEUMOCOCCAL: 65+ (2 - PPSV23 if available, else PCV20) PNEUMOCOCCAL: 65+ (2 - PPSV23 if available, else PCV20) [facility] Start: 08-30-2022 COVID-19 VACCINE (6 - Pfizer series) COVID-19 VACCINE (6 - Pfizer series) [facility] Start: 2022 ADVANCE DIRECTIVE DISCUSSION ADVANCE DIRECTIVE DISCUSSION [facility] Start: 2022 BONE DENSITY BONE DENSITY [facility] Start: 2022 Bone Density Screening Bone Density Screening [facility] Start: 2022 Screening for osteoporosis Bone Density Screening [facility] Start: 07-14-2022 DEPRESSION ASSESSMENT DEPRESSION ASSESSMENT [facility] Start: 04-26-2022 End: 06-26-2022 25-hydroxyvitamin D3 [Mass/volume] in Serum or Plasma VITAMIN D 25 HYDROXY Lab Routine Vitamin D deficiency Expected: 04/26/2022, Expires: 06/26/2022 [facility] Work Phone: Comment on above: Expected: 04/26/2022, Expires: 2 Start: 04-26-2022 End: 06-26-2022 Comprehensive metabolic 2000 panel - Serum or Plasma COMP METABOLIC PANEL Lab Routine Essential hypertension Mixed hyperlipidemia Expected: 04/26/2022, Expires: 06/26/2022 [facility] Work Phone: Comment on above: Expected: 04/26/2022, Expires: 2 Start: 04-26-2022 End: 06-26-2022 Hemoglobin A1c in Blood HGB A1C Lab Routine Elevated fasting glucose Expected: 04/26/2022, Expires: 06/26/2022 [facility] Work Phone: Comment on above: Expected: 04/26/2022, Expires: 2 Start: 04-26-2022 End: 06-26-2022 LIPID PANEL, NONFASTING LIPID PANEL, NONFASTING Lab Routine Essential hypertension Mixed hyperlipidemia Expected: 04/26/2022, Expires: 06/26/2022 [facility] Work Phone: Comment on above: Expected: 04/26/2022, Expires: 2 Start: 04-09-2022 End: 06-09-2022 Magnesium [Mass/volume] in Serum or Plasma [facility] Work Phone: Comment on above: Expected: 04/09/2022, Expires: 2 Start: 03-14-2022 Influenza vaccination [facility] Start: 01-23-2022 End: 03-25-2022 POTASSIUM BLD POTASSIUM BLD Lab Routine Hypokalemia Expected: 01/23/2022, Expires: 03/25/2022 [facility] Work Phone: Comment on above: Expected: 01/23/2022, Expires: 2 Start: 01-10-2022 Influenza vaccination INFLUENZA (#1) [facility] Comment on above: Postponed from 03/14/2021 (Declined at t his time) Start: 01-08-2022 End: 03-10-2022 25-hydroxyvitamin D3 [Mass/volume] in Serum or Plasma [facility] Work Phone: Comment on above: Expected: 01/08/2022, Expires: 2 Start: 01-08-2022 End: 03-10-2022 Cobalamin (Vitamin B12) [Mass/volume] in Serum or Plasma [facility] Work Phone: Comment on above: Expected: 01/08/2022, Expires: 2 Start: 01-08-2022 End: 03-10-2022 Comprehensive metabolic 2000 panel - Serum or Plasma [facility] Work Phone: Comment on above: Expected: 01/08/2022, Expires: 2 Start: 01-08-2022 End: 03-10-2022 Magnesium [Mass/volume] in Serum or Plasma [facility] Work Phone: Comment on above: Expected: 01/08/2022, Expires: 2 Start: 12-12-2021 COVID-19 VACCINE (5 - Booster for Pfizer series) COVID-19 VACCINE (5 - Booster for Pfizer series) [facility] Start: 12-06-2021 End: 12-20-2021 SARS-CoV-2 (COVID-19) RNA [Presence] in Respiratory specimen by KEL with probe detection 2019 CORONAVIRUS Microbiology Routine URI, acute Expected: 12/06/2021, Expires: 12/20/2021 [facility] Work Phone: Comment on above: Expected: 12/06/2021, Expires: 2 Start: 10-16-2021 End: 12-16-2021 Mitochondria Ab [Presence] in Serum by Immunofluorescence MITOCHONDRIAL AB PNL SCRN Lab Routine Elevated alkaline phosphatase level Abnormal results of liver function studies Elevated serum GGT level Expected: 10/16/2021, Expires: 12/16/2021 [facility] Work Phone: Comment on above: Expected: 10/16/2021, Expires: 2 Start: 10-02-2021 End: 12-02-2021 ALK PHOS ISOENZYM BL ALK PHOS ISOENZYM BL Lab Routine Elevated alkaline phosphatase level Expected: 10/02/2021, Expires: 12/02/2021 [facility] Work Phone: Comment on above: Expected: 10/02/2021, Expires: 2 Start: 10-02-2021 End: 12-02-2021 Gamma glutamyl transferase [Enzymatic activity/volume] in Serum or Plasma GGT BLD Lab Routine Elevated alkaline phosphatase level Expected: 10/02/2021, Expires: 12/02/2021 [facility] Work Phone: Comment on above: Expected: 10/02/2021, Expires: 2 Start: 10-01-2021 End: 12-01-2021 CBC W Auto Differential panel - Blood [facility] Work Phone: Comment on above: Expected: 10/01/2021, Expires: 2 Start: 10-01-2021 End: 12-01-2021 Comprehensive metabolic 2000 panel - Serum or Plasma [facility] Work Phone: Comment on above: Expected: 10/01/2021, Expires: 2 Start: 10-01-2021 End: 12-01-2021 Hemoglobin A1c/Hemoglobin.total in Blood [facility] Work Phone: Comment on above: Expected: 10/01/2021, Expires: 2 Start: 10-01-2021 End: 12-01-2021 LIPID PANEL, NONFASTING [facility] Work Phone: Comment on above: Expected: 10/01/2021, Expires: 2 Start: 10-01-2021 End: 12-01-2021 Magnesium [Mass/volume] in Serum or Plasma [facility] Work Phone: Comment on above: Expected: 10/01/2021, Expires: 2 Start: 10-01-2021 End: 12-01-2021 Urinalysis complete panel - Urine [facility] Work Phone: Comment on above: Expected: 10/01/2021, Expires: 2 Start: 10-01-2021 End: 12-01-2021 VITAMIN B12 BLOOD [facility] Work Phone: Comment on above: Expected: 10/01/2021, Expires: 2 Start: 10-01-2021 End: 12-01-2021 VITAMIN D 25 HYDROXY [facility] Work Phone: Comment on above: Expected: 10/01/2021, Expires: 2 Start: 07-14-2021 DEPRESSION ASSESSMENT DEPRESSION ASSESSMENT [facility] Start: 04-11-2021 Mammography MAMMOGRAM [facility] Start: 01-28-2020 Colonoscopy COLONOSCOPY [facility] Start: 01-28-2020 COLORECTAL CANCER SCREENING COLORECTAL CANCER SCREENING [facility] Start: 2017 RSV Vaccine (1 - 1-dose 60+ series) RSV Vaccine (1 - 1-dose 60+ series) [facility] Start: 01-31-2017 Adult depression screening assessment DEPRESSION SCREENING [facility] Start: 09-01-2014 FECAL OCCULT BLOOD FECAL OCCULT BLOOD [facility] Start: 09-01-2014 Screening for malignant neoplasm of colon Fecal Occult Blood [facility] Start: 2007 SHINGRIX VACCINE (1 of 2) SHINGRIX VACCINE (1 of 2) [facility] Start: 2002 COLOGUARD (FIT-DNA) COLOGUARD (FIT-DNA) [facility] Start: [address] COLONOGRAPHY [facility] Start: 2002 Screening for malignant neoplasm of colon [facility] Start: 2002 SIGMOIDOSCOPY SIGMOIDOSCOPY [facility] Start: 1976 ONE PNEUMOVAX PRIOR TO AGE 65 ONE PNEUMOVAX PRIOR TO AGE 67 [facility] Start: 1975 BP CONTROLLED (<130/80) BP CONTROLLED (<130/80) [place] 25-hydroxyvitamin D3 [Mass/volume] in Serum or Plasma VITAMIN D 25 HYDROXY Lab Routine Vitamin D deficiency 04/09/2022 9:58 AM EDT [facility] Work Phone: Comprehensive metabo lic 2000 panel - Serum or Plasma COMP METABOLIC PANEL Lab Routine Essential hypertension Mixed hyperlipidemia 04/09/2022 9:58 AM EDT [facility] Work Phone: Hemoglobin A1c in Blood HGB A1C Lab Routine Elevated fasting glucose 04/09/2022 9:58 AM EDT [facility] Work Phone: LIPID PANEL, NONFASTING LIPID PA SACHA, NONFASTING Lab Routine Essential hypertension Mixed hyperlipidemia 04/09/2022 9:58 AM EDT [facility] Work Phone: End: 11-07-2023 SRINATH SCREENING SRINATH SCREENING Radiology Routine Encounter for screening mammogram for breast cancer 1 Occurrences starting 10/08/2022 until 11/07/2023 [facility] Work Phone: Comment on above: 1 Occurrences starting 10/08/2022 until 11/07/2023 End: 10-31-2022 SRINATH SCREENING W JENNIFER SRINATH SCREENING W JENNIFER Radiology Routine Screening mammogram for breast cancer 1 Occurrences starting 10/01/2021 until 10/31/2022 [facility] Work Phone: Comment on above: 1 Occurrences starting 10/01/2021 until 10/31/2022 SRINATH SCREENING W JENNIFER SRINATH SCREENI NG W JENNIFER Radiology Routine Screening mammogram for breast cancer 10/29/2021 2:05 PM EDT [facility] Work Phone: End: 12-02-2024 MG Breast Screening SRINATH SCREENING Radiology Routine Encounter for screening mammogram for breast cancer 1 Occurrences starting 11/04/2023 until 12/02/2024 [facility] Work Phone: Comment on above: 1 Occurrences starting 11/04/2023 until 12/02/2024 MG Breast Screening SRINATH SCREENIN G Radiology Routine Encounter for screening mammogram for breast cancer 12/15/2023 10:47 AM EDT [facility] Work Phone: End: 11-15-2022 Mri abdomen w/o & w/contrast material [facility] Work Phone: Comment on above: 1 Occurrences starting 10/16/2021 until 11/15/2022 SURGICAL PATHOLOGY [facility] Work Phone: Comment on above: Release Upon Ordering for 1 Occurrences starting 03/12/2022, 1 completed End: 11-09-2022 Us abdominal real time w/image limited US ABD RT UPPER QUADRANT Radiology Routine Elevated alkaline phosphatase level 1 Occurrences starting 10/10/2021 until 11/09/2022 [facility] Work Phone: Comment on above: 1 Occurrences starting 10/10/2021 until 11/09/2022 End: 04-09-2023 US CAROTID [facility]ER[facility] US CAROTID [facility] Vascular Lab Routine Carotid stenosis, bilateral 1 Occurrences starting 04/09/2022 until 04/09/2023 [facility] Work Phone: Comment on above: 1 Occurrences starting 04/09/2022 until 04/09/2023 [facility] Immunizations Immunization Date Immunization Notes Care Provider Napoleon gibson 04-14-2023 COVID-19 vaccine, ag e 12+ yr, 2022- season ([employer]-Action[employer]) Juany Lawrence APRN.DIVORCE MEDIATOR Work Phone: [facility] 04-14-2023 zoster vaccine recombinant Juany Lawrence THREAD PULLING MACHINE ATTENDANT.DIVORCE MEDIATOR Work Phone: [facility] 03-21-2023 influenza, high dose seasonal, preservative-free Josselyn Waters THREAD PULLING MACHINE ATTENDANT.DIVORCE MEDIATOR Work Phone: [facility] 03-21-2023 influenza virus vacc ine, unspecified formulation Xr [place] Work Phone: [facility] 10-08-2022 pneumococcal polysaccharide vaccine, 23 valent Cecily Coelho PA-C Work Phone: [facility] 10-08-2022 zoster vaccine recombinant Cecily Coelho PA-C Work Phone: [facility] 04-29-2022 COVID-19 booster vaccine, age 12+ yr, bivalent (PFIZER-BIONTECH) Ia Nurse Work Phone: [facility] Work Phone: 04-29-2022 influenza, injectabl e, quadrivalent, contains preservative Ia Nurse Work Phone: [facility] Work Phone: 10-01-2021 pneumococcal conjuga te vaccine, 13 valent Cecily Coelho PA-C Work Phone: [facility] 10-01-2021 tetanus toxoid, redu patricia diphtheria toxoid, and acellular pertussis vaccine, adsorbed Cecily Coelho PA-C Work Phone: [facility] 10-18-2020 COVID-19 vaccine, ag e 12+ yr (PFIZER-BIONTECH - PURPLE TOP) Cecily Coelho PA-C Work Phone: [facility] Work Phone: 09-27-2020 COVID-19 vaccine, ag e 12+ yr (PFIZER-BIONTECH - PURPLE TOP) Cecily Coelho PA-C Work Phone: [facility] Work Phone: 06-13-2020 influenza, seasonal, injectable Cecily COBBC Work Phone: [facility] 08-12-2016 influenza, injectabl e, quadrivalent, contains preservative Cecily Coelho PA-C Work Phone: [facility] 07-06-2015 influenza, injectabl e, quadrivalent, contains preservative Cecily CANTOR-Hussain Work Phone: [facility] 05-23-2014 influenza, seasonal, injectable Cecily Coelho PA-C Work Phone: [facility] 12-14-2007 tetanus and diphther ia toxoids, adsorbed, preservative free, for adult use (2 Lf of tetanus toxoid and 2 Lf of diphtheria toxoid) Cecily Coelho PA-C Work Phone: [facility] Payers Date Payer Category Payer Medicare MEDICARE MEDICAR E A AND B [id number] 2022-Present [phone] [place] [address] Medicare [id number] 2022 Medicare [id number] 2022 Medicaid [id number] 2019 Medicaid [employer]ICA[employer] [id number] 2019-Present [phone] [address] [place] [address] Medicaid [id number] 2019 Medicaid [id number] Social History Date Type Detail Facility Start: 07-17-2020 End: 03-12-2022 Tobacco smoking status NHIS Ex-smoker [facility] Start: 07-14-1987 End: 07-14-2012 History of tobacco use Cigarette Smoker [facility] Start: 07-17-2020 End: 03-12-2022 Tobacco use and exposure Smokeless tobacco non-user [facility] Start: 10-01-2021 End: 05-20-2022 Alcohol intake Current non-drinker of alcohol (finding) [facility] Start: 1955 Sex Assigned At Not on file [facility] Start: 09-21-2021 End: 06-03-2022 Exposure to SARS-CoV-2 (event) Not sure [facility] Start: 07-14-1987 End: 07-14-2012 History of tobacco use Current smoker [facility] Start: 01-08-2022 End: 03-21-2023 History of Social function [facility] Work Phone: Start: 01-08-2022 End: 03-21-2023 Tobacco use panel [facility] Work Phone: Adult Depression Screening Assessment 0 [facility] Work Phone: Clinical Notes 04-01-2014 to 01-06-2024 Telephone Encounter - Luz Elena Bernstein RN - 01/06/2024 2:41 PM EDTTelephone Encounter - Luz Elena Bernstein RN - 01/06/2024 2:41 PM EDTTelephone Encounter - Derrick Mariya Welch - 01/06/2024 2:25 PM EDT Note Date & Type Note Facility 01-06-2024 Telephone encounter Note Called and spoke with Yane villareal at [facility] in [place]. She states she just spoke with pt and told her she should have plenty of Metformin on hand as she just had a prescription filled. Also Dr. Migue Hutchinson prescribes her Pantoprazole and her Metformin. The Pantoprazole has been discontinued. Also Yane states they have prescription refills on file for pt's Losartan, HCTZ and Atorvastatin. Called and spoke with pt and notified of all of the above. Pt states she has plenty of Metformin and doesn't need a refill. Asked pt to contact Dr. Hutchinson's office for the Pantoprazole to see why it may have been discontinued. And pt is to call [facility] to get her refills when it is time. Pt verbalizes understanding. [facility] 01-06-2024 Miscellaneous Notes Called and spoke with Yane villareal at [facility] in [place]. She states she just spoke with pt and told her she should have plenty of Metformin on hand as she just had a prescription filled. Also Dr. Migue Hutchinson prescribes her Pantoprazole and her Metformin. The Pantoprazole has been discontinued. Also Yane states they have prescription refills on file for pt's Losartan, HCTZ and Atorvastatin. Called and spoke with pt and notified of all of the above. Pt states she has plenty of Metformin and doesn't need a refill. Asked pt to contact Dr. Hutchinson's office for the Pantoprazole to see why it may have been discontinued. And pt is to call [facility] to get her refills when it is time. Pt verbalizes understanding. Prescription Refill Information The patient has been identified by name and date of : Yes Caregiver verified no other encounters exist for this prescription request: Yes Caregiver confirmed with patient/requestor that no other refills are due, in the near future, with this provider at this time: Yes The last office visit in the department: 11-04-23 Does the patient have a future office visit with this provider/department: Yes Requested Prescriptions Pending Prescriptions Disp Refills metFORMIN (GLUCOPHAGE) 500 mg tablet 60 tablet 2 Sig: Take 1 tablet by mouth every 12 hours. losartan (COZAAR) 100 mg tablet 90 tablet 0 Sig: Take 1 tablet by mouth once daily. hydroCHLOROthiazide 25 mg tablet 90 tablet 0 Sig: Take 1 tablet by mouth once daily. atorvastatin (LIPITOR) 80 mg tablet 90 tablet 1 Sig: Take 1 tablet by mouth daily at bedtime. For cholesterol. pantoprazole DR (PROTONIX) 40 mg tablet 180 tablet 0 Sig: Take 1 tablet by mouth two times a day. Take on empty stomach, 1/2 hr before meal. Mariya Welch January 06, 2024 2:25 PM Prescription Refill Information The patient has been identified by name and date of : Yes Caregiver verified no other encounters exist for this prescription request: Yes Caregiver confirmed with patient/requestor that no other refills are due, in the near future, with this provider at this time: Yes The last office visit in the department: 11/04/2023 Does the patient have a future office visit with this provider/department: Yes Requested Prescriptions Pending Prescriptions Disp Refills metFORMIN (GLUCOPHAGE) 500 mg tablet 60 tablet 2 Sig: Take 1 tablet by mouth every 12 hours. Hope Mario January 06, 2024 2:08 PM documented in this encounter [facility] 01-06-2024 Telephone encounter Note Prescription Refill Information The patient has been identified by name and date of : Yes Caregiver verified no other encounters exist for this prescription request: Yes Caregiver confirmed with patient/requestor that no other refills are due, in the near future, with this provider at this time: Yes The last office visit in the department: 11-04-23 Does the patient have a future office visit with this provider/department: Yes Requested Prescriptions Pending Prescriptions Disp Refills metFORMIN (GLUCOPHAGE) 500 mg tablet 60 tablet 2 Sig: Take 1 tablet by mouth every 12 hours. losartan (COZAAR) 100 mg tablet 90 tablet 0 Sig: Take 1 tablet by mouth once daily. hydroCHLOROthiazide 25 mg tablet 90 tablet 0 Sig: Take 1 tablet by mouth once daily. atorvastatin (LIPITOR) 80 mg tablet 90 tablet 1 Sig: Take 1 tablet by mouth daily at bedtime. For cholesterol. pantoprazole DR (PROTONIX) 40 mg tablet 180 tablet 0 Sig: Take 1 tablet by mouth two times a day. Take on empty stomach, 1/2 hr before meal. Mariya Welch January 06, 2024 2:25 PM [facility] 01-06-2024 Telephone encounter Note Prescription Refill Information The patient has been identified by name and date of : Yes Caregiver verified no other encounters exist for this prescription request: Yes Caregiver confirmed with patient/requestor that no other refills are due, in the near future, with this provider at this time: Yes The last office visit in the department: 11/04/2023 Does the patient have a future office visit with this provider/department: Yes Requested Prescriptions Pending Prescriptions Disp Refills metFORMIN (GLUCOPHAGE) 500 mg tablet 60 tablet 2 Sig: Take 1 tablet by mouth every 12 hours. Hope Mario January 06, 2024 2:08 PM [facility] 12-16-2023 Telephone encounter Note Pt notified of mgm results & voiced understanding. Patricia Rasheed LPN [facility] 12-16-2023 Miscellaneous Notes Pt notified of mgm results & voiced understanding. Patricia Rasheed LPN Let patient know mammogram was ok documented in this encounter [facility] 12-16-2023 Telephone encounter Note Let patient know mammogram was ok [facility] 12-16-2023 Note Formatting of this n ote might be different from the original. December 16, 2023 PID: [id number] Isabel Sahni [address] [place] [address] Dear Ms. Sahni, We are pleased to inform you that the results of your recent breast imaging exam on 12/15/2023 are normal. Early detection of cancer is very important. We also understand recommendations regarding breast cancer screening are controversial. Please discuss with your primary care provider which strategy is best for you and whether a mammogram is right for you. Your imaging studies and report will be kept on file at [facility] as part of your permanent medical record and are available for your continuing care. Thank you for allowing us to help in meeting your health care needs. Sincerely, Dr. Mustafa Interpreting Radiologist [facility] (Normal over 40) [facility] 12-16-2023 Miscellaneous Notes December 16, 2023 PID: [id number] Isabel Sahni [address] [place] [address] Dear Ms. Sahni, We are pleased to inform you that the results of your recent breast imaging exam on 12/15/2023 are normal. Early detection of cancer is very important. We also understand recommendations regarding breast cancer screening are controversial. Please discuss with your primary care provider which strategy is best for you and whether a mammogram is right for you. Your imaging studies and report will be kept on file at [facility] as part of your permanent medical record and are available for your continuing care. Thank you for allowing us to help in meeting your health care needs. Sincerely, Dr. Mustafa Interpreting Radiologist [facility] (Normal over 40) documented in this encounter [facility] 12-15-2023 History of Present illness Narrative Radiology Service Progress Note PATIENT NAME: Isabel Sahni DATE OF SERVICE: December 15, 2023 TIME: 10:49 AM PATIENT IDENTITY VERIFICATION COMPLETED USING TWO (2) IDENTIFIERS: Name and Date of confirmed by patient verbally. FALL SCREENING: Has the patient had 2 falls in the last year or 1 fall with injury or currently using an Ambulatory Assistive Device (Walker, Cane, Wheelchair, Crutches, etc.)? No PATIENT GENDER DATA: Female. status: : No status: NO. PATIENT RELEVANT IMPLANT DATA REVIEWED: Not Applicable PATIENT PRESENTS WITH AN IMPLANTABLE OR ATTACHED BLOOD BANK LABORATORY TECHNICIAN: No RADIOLOGY DEPARTMENT: Mammography PERIPHERAL IV DATA: Not applicable SIGNED BY: Carla Medrano December 15, 2023 10:49 AM documented in this encounter [facility] 12-15-2023 Note HNO ID: [id number] Author: SHAHZAD BAIG Mammo Tech Service: ? Author Type: Shift Superintendent Type: Progress Notes Filed: 12/15/2023 10:49 Note Text: Radiology Service Progress Note PATIENT NAME: Isabel Sahni DATE OF SERVICE: December 15, 2023 TIME: 10:49 AM PATIENT IDENTITY VERIFICATION COMPLETED USING TWO (2) IDENTIFIERS: Name and Date of confirmed by patient verbally. FALL SCREENING: Has the patient had 2 falls in the last year or 1 fall with injury or currently using an Ambulatory Assistive Device (Walker, Cane, Wheelchair, Crutches, etc.)? No PATIENT GENDER DATA: Female. status: : No status: NO. PATIENT RELEVANT IMPLANT DATA REVIEWED: Not Applicable PATIENT PRESENTS WITH AN IMPLANTABLE OR ATTACHED BLOOD BANK LABORATORY TECHNICIAN: No RADIOLOGY DEPARTMENT: Mammography PERIPHERAL IV DATA: Not applicable SIGNED BY: Shahzad Baig [employer] December 15, 2023 10:[address] [facility] 11-18-2023 Telephone encounter Note Noted. [facility] 11-18-2023 Miscellaneous Notes Noted. Pt states she gets her 6[address]12 international unit(s) of Vit D from her gastrologist. Pt states she has not found the B12 but she was taking 1000mcs daily. Pt states she has an appt with gastro today & will get all of her meds from them straightened out. Patricia Rasheed LPN Left message for patient to contact office. Sophia Waters MA Let patient know refill sent in. Let patient know per our records Gastro wanted her taking 400 international unit(s) 's of Vit D twice a day not once a day. Also where is she getting the 50,000 international unit(s) Vit d from. Our last script for her was 10/02/2021? She if she found her B12 and was she taking the 1000 mcg once a day? Call to pt and notified her of message below from Provider. Pt currently taking Vitamin E 400 mg. She currently takes a Vit D2 50,000 international unit(s) once weekly and a Vitamin D 400 mg once daily. Pt is currently looking through her medication to see if she has B12, if she does not find it she will update office when we call back with update for refills. Last Rx was 08/11/22. Requesting refill for Diclofenac Gel. Last Rx: 04/14/23 #4 g w/4 refills. Laila Blanco MA Left message for patient to contact office. Sophia Waters MA Let patient know I want her to increase her B12 to two of the 1000 mcg tabs a day. I will send in a script to increase her atorvastatin to 80 mg a day. I still need to know what the strength of her Vit D is so I can give her instructions on it to improve her Vit D level. Phoned patient and given provider's message below with verbalized understanding. Patient reports she is taking the vit D once daily- is not at home- so doesn't know the mg. Will call back to give that to nurse. Patient reports she is taking B12 1000 mcg once daily. Patient reports she is taking lipitor daily with no missed doses. Let patient know her Vit D is slightly low. She is she still takes Vit D and if so how much and how often? Her B12 is low again. Is she taking the Vit B12 1000 mcg once a day? Lipid panel showed Trigs elevated at 174 (goal<150), HDL good at 54 and LDL very high at 205 (goal less then 70) this can increase risk of her liver fibrosis getting worse. See if she had been taking the Lipitor since this is worse then a year ago? These rest of her labs and UA were all ok. documented in this encounter [facility] 11-18-2023 Telephone encounter Note Pt states she gets her 70931 international unit(s) of Vit D from her gastrologist. Pt states she has not found the B12 but she was taking 1000mcs daily. Pt states she has an appt with gastro today & will get all of her meds from them straightened out. Patricia Rasheed LPN [facility] 11-12-2023 Telephone encounter Note Left message for patient to contact office. Sophia Waters MA [facility] 11-11-2023 Telephone encounter Note Let patient know refill sent in. Let patient know per our records Gastro wanted her taking 400 international unit(s) 's of Vit D twice a day not once a day. Also where is she getting the 50,000 international unit(s) Vit d from. Our last script for her was 10/02/2021? She if she found her B12 and was she taking the 1000 mcg once a day? [facility] 11-11-2023 Telephone encounter Note Call to pt and notified her of message below from Provider. Pt currently taking Vitamin E 400 mg. She currently takes a Vit D2 50,000 international unit(s) once weekly and a Vitamin D 400 mg once daily. Pt is currently looking through her medication to see if she has B12, if she does not find it she will update office when we call back with update for refills. Last Rx was 08/11/22. Requesting refill for Diclofenac Gel. Last Rx: 04/14/23 #4 g w/4 refills. Laila Blanco MA [facility] 11-10-2023 Telephone encounter Note Patient notified and voiced understanding. Transferred to PSS in uro/information systems manager to schedule appointment. Di Crockett RN [facility] 11-10-2023 Miscellaneous Notes Patient notified and voiced understanding. Transferred to PSS in uro/information systems manager to schedule appointment. Di Crockett RN Please let patient know I reviewed case with RR who recommends referral to uro information systems manager for evaluation and possible surgery. Please assist in scheduling. Gill Hoover APRN.LAZARO documented in this encounter [facility] 11-10-2023 Telephone encounter Note Please let patient know I reviewed case with RR who recommends referral to uro information systems manager for evaluation and possible surgery. Please assist in scheduling. Gill Hoover APRN.LAZARO [facility] 11-10-2023 Note HNO ID: [id number] Author: GILL HOOVER APRN.CNP Service: ? Author Type: Nurse Practitioner Type: Progress Notes Filed: 11/10/2023 11:07 Note Text: Isabel Sahni is a 68 year old female who presents for problem visit of prolapse. HPI: Isabel noticed something hanging out of her vagina 2-4 months. She denies any bladder concerns. She denies bleeding. Her noticed it right before intercourse. 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 OB History T2 L1 SAB0 IAB0 Ectopic0 Multiple0 Live Births0 Comment: One child is . Rn Telemetry History LMP: 03/12/2010, Postmenopausal Age at Menarche: Age at First : Age at Menopause: Rn Telemetry History Comments: Sexual Activity: Yes; Male Contraception: No contraception data on record PAST MEDICAL HISTORY Diagnosis Date Advance directive discussed with patient 11/04/2023 Discussed 10/2023: Has packets Arthritis Carotid stenosis, bilateral 12/30/2016 US 02/2021 20-40% b/l Elevated alkaline phosphatase level 12/05/[address] Corona Elevated fasting glucose 10/02/2021 Elevated vitamin B12 level 10/02/2021 Encounter for Medicare annual wellness exam 11/04/2023 Medicare Part B: 07/14/2023 Last done: 10/2023 Endometrial hyperplasia without atypia 12/18/2020 December 18, 2020 Elects for repeat EMB in 6 months. Blanca Harley MD Essential hypertension 03/09/2013 Former smoker 05/11/2013 Gallstones 03/03/2014 Liver fibrosis 01/16/2022 Seeing Gastro- dr. corona LPRD (laryngopharyngeal reflux disease) 05/11/[address] Corona Medication management 11/04/2023 Mixed hyperlipidemia 03/22/2013 Obesity, Class I, BMI 30-34.9 08/31/2015 Obesity, Class II, BMI 35-39.9 08/31/2015 Pancreatic [...] OF 03/17/2007 Left knee surgery TONSILLECTOMY HX FAMILY HISTORY Problem Relation Age of Onset Diabetes Mother Alcohol/Drug Daughter Diabetes Brother Diabetes Brother Social History Tobacco Use Smoking status: Former Years: 27 Types: Cigarettes Quit date: 2012 Years since quittin.3 Smokeless tobacco: Never Vaping Use Vaping Use: Never used Substance Use Topics Alcohol use: No Drug use: No Current Outpatient Medications Medication Sig atorvastatin (LIPITOR) 80 mg tablet Take 1 tablet by mouth daily at bedtime. For cholesterol. cholecalciferol (VITAMIN D-3) 400 unit tab Take 400 Units by mouth two times a day. Take 1 capsule by mouth daily for liver fibrosis pantoprazole DR (PROTONIX) 40 mg tablet Take 1 tablet by mouth two times a day. Take on empty stomach, 1/2 hr before meal. losartan (COZAAR) 100 mg tablet Take 1 tablet by mouth once daily. hydroCHLOROthiazide 25 mg tablet Take 1 tablet by mouth once daily. potassium chloride (K-TAB) 10 mEq tablet Take 1 tablet by mouth daily with breakfast. metFORMIN (GLUCOPHAGE) 500 mg tablet Take 1 tablet by mouth every 12 hours. diclofenac (VOLTAREN) 1 % topical gel Apply 4 g to affected area four times daily. loratadine (CLARITIN) 10 mg tablet Take 1 tablet by mouth once daily. cyanocobalamin (VITAMIN B-12) 1,000 mcg tab Take 1 tablet by mouth once daily. Vitamin E, dl, acetate, (VITAMIN E) 400 unit capsule Take 1 capsule by mouth twice daily. Per Gastro: Friend ursodiol (ACTIGALL) 300 mg capsule Take 1 capsule by mouth twice daily. Per Gastro: Friend ergocalciferol 50,000 unit capsule (VITAMIN D2, DRISDOL) Take 1 capsule by mouth one time a week. No current facility-administered medications for this visit. Allergies As of Date: 11/10/2023 Allergen Noted Reaction ASA [SALICYLATES] 04/29/2005 Hives PHENERGAN [PROMETHAZINE] 04/14/2014 Itching CODEINE 04/29/2005 Intolerance HYDROCODONE 04/29/2005 Cough, Vomiting, and Shortness of Breath IBUPROFEN 04/29/2005 Intolerance and GI Upset LISINOPRIL 05/02/2014 Cough OXYCODONE 03/07/2014 GI Upset, Anaphylaxis, and Other: See Comments Fully Assessed 11/04/2023 REVIEW OF (more content not included)... [facility] 11-10-2023 History of Present illness Narrative Isabel Sahni is a 68 year old female who presents for problem visit of prolapse. HPI: Isabel noticed something hanging out of her vagina 2-4 months. She denies any bladder concerns. She denies bleeding. Her noticed it right before intercourse. 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 OB History T2 L1 SAB0 IAB0 Ectopic0 Multiple0 Live Births0 Comment: One child is . Rn Telemetry History LMP: 03/12/2010, Postmenopausal Age at Menarche: Age at First : Age at Menopause: Rn Telemetry History Comments: Sexual Activity: Yes; Male Contraception: No contraception data on record PAST MEDICAL HISTORY Diagnosis Date Advance directive discussed with patient 11/04/2023 Discussed 10/2023: Has packets Arthritis Carotid stenosis, bilateral 12/30/2016 US 02/2021 20-40% b/l Elevated alkaline phosphatase level 12/05/[address] Corona Elevated fasting glucose 10/02/2021 Elevated vitamin B12 level 10/02/2021 Encounter for Medicare annual wellness exam 11/04/2023 Medicare Part B: 07/14/2023 Last done: 10/2023 Endometrial hyperplasia without atypia 12/18/2020 December 18, 2020 Elects for repeat EMB in 6 months. Blanca Harley MD Essential hypertension 03/09/2013 Former smoker 05/11/2013 Gallstones 03/03/2014 Liver fibrosis 01/16/2022 Seeing Gastro- dr. corona LPRD (laryngopharyngeal reflux disease) 05/11/[address] Corona Medication management 11/04/2023 Mixed hyperlipidemia 03/22/2013 Obesity, Class I, BMI 30-34.9 08/31/2015 Obesity, Class II, BMI 35-39.9 08/31/2015 Pancreatic [...] OF 03/17/2007 Left knee surgery TONSILLECTOMY HX FAMILY HISTORY Problem Relation Age of Onset Diabetes Mother Alcohol/Drug Daughter Diabetes Brother Diabetes Brother Social History Tobacco Use Smoking status: Former Years: 25 Types: Cigarettes Quit date: 2012 Years since quittin.3 Smokeless tobacco: Never Vaping Use Vaping Use: Never used Substance Use Topics Alcohol use: No Drug use: No Current Outpatient Medications Medication Sig atorvastatin (LIPITOR) 80 mg tablet Take 1 tablet by mouth daily at bedtime. For cholesterol. cholecalciferol (VITAMIN D-3) 400 unit tab Take 400 Units by mouth two times a day. Take 1 capsule by mouth daily for liver fibrosis pantoprazole DR (PROTONIX) 40 mg tablet Take 1 tablet by mouth two times a day. Take on empty stomach, 1/2 hr before meal. losartan (COZAAR) 100 mg tablet Take 1 tablet by mouth once daily. hydroCHLOROthiazide 25 mg tablet Take 1 tablet by mouth once daily. potassium chloride (K-TAB) 10 mEq tablet Take 1 tablet by mouth daily with breakfast. metFORMIN (GLUCOPHAGE) 500 mg tablet Take 1 tablet by mouth every 12 hours. diclofenac (VOLTAREN) 1 % topical gel Apply 4 g to affected area four times daily. loratadine (CLARITIN) 10 mg tablet Take 1 tablet by mouth once daily. cyanocobalamin (VITAMIN B-12) 1,000 mcg tab Take 1 tablet by mouth once daily. Vitamin E, dl, acetate, (VITAMIN E) 400 unit capsule Take 1 capsule by mouth twice daily. Per Gastro: Friend ursodiol (ACTIGALL) 300 mg capsule Take 1 capsule by mouth twice daily. Per Gastro: Friend ergocalciferol 50,000 unit capsule (VITAMIN D2, ARIANE) Take 1 capsule by mouth one time a week. No current facility-administered medications for this visit. Allergies As of Date: 11/10/2023 Allergen Noted Reaction ASA [SALICYLATES] 04/29/2005 Hives PHENERGAN [PROMETHAZINE] 04/14/2014 Itching CODEINE 04/29/2005 Intolerance HYDROCODONE 04/29/2005 Cough, Vomiting, and Shortness of Breath IBUPROFEN 04/29/2005 Intolerance and GI Upset LISINOPRIL 05/02/2014 Cough OXYCODONE 03/07/2014 GI Upset, Anaphylaxis, and Other: See Comments Fully Assessed 11/04/2023 REVIEW OF SYSTEMS Abdomen: No bloating, early satiety, indigestion, or increased flatulence. No abdominal pain, nausea, vomiting, diarrhea, or constipation. Bladder: No dysuria, gross hematuria, urinary frequency, urinary urgency, or incontinence. Breast: No breast lumps, nipple d/c, overlying skin changes, redness or skin retraction. Expanded ROS: N/A Allergies and current medication updated:Yes EXAM: BP 126/78 Wt 208 lb (94.3kg) LMP 03/12/2010 GENERAL: pleasant, female in no apparent distress HEENT: Normocephalic, atraumatic, mucus membranes moist, and no lesions CHEST: Normal inspiratory effort PELVIC: external genitalia normal, normal Bartholin's glands, urethra, [place]'s glands, no vulvar lesions, no cervical lesions, physiologic discharge present, normal appearing perineal body and perianal region + 3rd degree uterovaginal prolapse + 1st degree cystocele BIMANUAL: uterus normal size, shape and consistency, no adnexal masses, and non-tender NEURO: alert and oriented x3,exam grossly non-focal EXTREMITIES: normal ASSESSMENT AND PLAN: 1. Uterovaginal prolapse - ICD9: 618.4, ICD10: N81.4 (primary diagnosis) - Reviewed findings with patient - Reviewed aggravating vs relieving factors for prolapse - Consider pessary vs surgical options - Isabel does not want pessary - History of simple hyperplasia without atypia in 2020. - Did not have 6 month follow up sampling - patient stated that EMB was very painful and she does not want to repeat - Consult with physician to discuss if she would be a candidate for surgery 2. Cystocele, midline - ICD9: 618.01, ICD10: N81.11 Gill Hoover APRN.CNP Medical Decision Making: Problems: Moderate: New problem with uncertain prognosis Data: Unique test result(s) reviewed: 3+ Medical Decision Making Level: 4 - Moderate documented in this encounter [facility] 11-10-2023 Telephone encounter Note Left message for patient to contact office. Sophia Waters MA [facility] 11-07-2023 Telephone encounter Note Let patient know I want her to increase her B12 to two of the 1000 mcg tabs a day. I will send in a script to increase her atorvastatin to 80 mg a day. I still need to know what the strength of her Vit D is so I can give her instructions on it to improve her Vit D level. [facility] 11-06-2023 Telephone encounter Note Phoned patient and given provider's message below with verbalized understanding. Patient reports she is taking the vit D once daily- is not at home- so doesn't know the mg. Will call back to give that to nurse. Patient reports she is taking B12 1000 mcg once daily. Patient reports she is taking lipitor daily with no missed doses. [facility] 11-06-2023 Telephone encounter Note Let patient know her Vit D is slightly low. She is she still takes Vit D and if so how much and how often? Her B12 is low again. Is she taking the Vit B12 1000 mcg once a day? Lipid panel showed Trigs elevated at 174 (goal<150), HDL good at 54 and LDL very high at 205 (goal less then 70) this can increase risk of her liver fibrosis getting worse. See if she had been taking the Lipitor since this is worse then a year ago? These rest of her labs and UA were all ok. [facility] 11-04-2023 Instructions Franklin Arias MD - 11/04/2023 10:26 AM EDT Consider getting the RSV vaccine from a local pharmacy in the fall. Screening schedule The following prevention plan is recommended: RSV Vaccine(1 - 1-dose 60+ series) Never done Bone Density Screening Never done Colorectal Cancer Screening due on 03/12/2023 Advance Directive Discussion due on 07/14/2023 Behavioral Health Screening Never done Mammogram Screening due on 12/11/2023 WHAT YOU CAN DO TO PREVENT FALLS Many falls can be prevented. By making some changes, you can lower your chances of falling. Four things YOU can do to prevent falls for you* and your caregiver 1. Begin a regular exercise program Exercise is one of the most important ways to lower your chances of falling. It makes you stronger and helps you feel better. Exercises that improve balance and coordination (like [place]) are the most helpful. Lack of exercise leads to weakness and increases your chances of falling. Ask your doctor or health care provider about the best type of exercise program for you. 2. Have your health care provider review your medicines Have your doctor or pharmacist review all the medicines you take, even [id number] medicines. As you get older, the way medicines work in your body can change. Some medicines, or combinations of medicines, can make you sleepy or dizzy and can cause you to fall. 3. Have your vision checked Have your eyes checked by an eye doctor at least once a year. You may be wearing the wrong glasses or have a condition like glaucoma or cataracts that limits your vision. Poor vision can increase your chances of falling. 4. Make your home safer About half of all falls happen at home. To make your home safer: Remove things you can trip over (like papers, books, clothes, and shoes) from stairs and places where you walk. Remove small throw rugs or use double-sided tape to keep the rugs from slipping. Keep items you use often in cabinets you can reach easily without using a step stool. Have grab bars put in next to your toilet and in the tub or shower. Use non-slip mats in the bathtub and on shower floors. Improve the lighting in your home. As you get older, you need brighter lights to see well. Hang light-weight curtains or shades to reduce glare. Have handrails and lights put in on all staircases. Wear shoes both inside and outside the house. Avoid going barefoot or wearing slippers. For more information, contact: Centers for Disease Control and Prevention www.cdc.gov/injury * This information may not apply if you have certain medical conditions. documented in this encounter [facility] 11-04-2023 History of Present illness Narrative Images from the original note were not included. Isabel Sahni is a 68 year old female here for a Medicare wellness visit. Medicare Health Risk Assessment General Health good Exercise: Minutes/Day None, just active daily Exercise: Days/Week Alcohol: Daily Use none Alcohol: Drinks/Day Alcohol: 6 or more drinks Feel off balance none Concerns: Teeth/Dentures Concerns: Sexual function Troubled by feelings none Frequency: Eating healthy diet 2 days ADLs requiring help none Safety precautions in home/vehicle Wears seat belts, no loss rugs. No grab bars. No stairs. Smoke, vape, chews tobacco quit Difficulty hearing no Difficulty seeing Wears eye glasses. Current Providers Specialists: I have reviewed specialist-related care of the patient in the medical record. Current care team: Patient Care Team: Franklin Arias MD as PCP - General (Family Medicine) Dr. Corona (Gastro) Medical/Family history review Reviewed and updated problem list, medical/surgical/family/social history, medications, and allergies. Opioid use review Opioid Medications (last 90 days) No data to display Depression screening Depression Screening PHQ-2 Score ZULAY-2 Total Score 11/04/2023 0 0 Depression screening tool completed and reviewed. Based on score and interview, patient is not at risk for depression. Screening tool discussed with patient, and I recommended no further intervention at this time. Cognitive screening Score: 4 Cognitive screening reviewed and No further action needed (score 3-5). Functional Observation Was the patient's Timed Up & Go test unsteady or ? 12 seconds? No Advance Care Planning Patient did not wish or was not able to name a surrogate decision maker or provide an advance care plan Measurements BP 126/84 Pulse 76 Resp 16 Ht 5' 8 (1.73m) Wt 210 lb (95.3kg) LMP 03/12/2010 BMI 31.94 kg/(m^2). Vision Screening: Follows with optometry/ophthalmology Assessment/Plan Welcome to Medicare preventive visit (Z00.00) - Counseled on healthy diet and regular exercise - Fall avoidance information provided - Personalized prevention plan provided See below Chief Complaint Patient presents with: Medicare Wellness Exam HPI Isabel Sahni is a 68 year old female who presents here today for Chronic Medical Conditions. and Medicare Annual Visit. Patient with hx of HTN, hyperlipidemia, liver fibrosis, elevated glucose, carotid stenosis, obesity, vit d def, pancreatic cyst, and those as below. Patient saw Ortho on 10/27/2023 for right shoulder pain. Patient has been doing ok. No concerns. Past medical history, appointments, medications, allergies reviewed. [...] on File Prior to Visit Medication Sig metFORMIN (GLUCOPHAGE) 500 mg tablet Take 1 tablet by mouth every [address] (PROTONIX) 40 mg tablet Take 1 tablet by mouth two times a day. Take on empty stomach, 1/2 hr before meal. losartan (COZAAR) 100 mg tablet Take 1 tablet by mouth once daily. hydroCHLOROthiazide 25 mg tablet Take 1 tablet by mouth once daily. potassium chloride (K-TAB) 10 mEq tablet Take 1 tablet by mouth daily with breakfast. atorvastatin (LIPITOR) 40 mg tablet Take 1 tablet by mouth daily at bedtime. For cholesterol. diclofenac (VOLTAREN) 1 % topical gel Apply 4 g to affected area four times daily. loratadine (CLARITIN) 10 mg tablet Take 1 tablet by mouth once daily. cyclobenzaprine (FLEXERIL) 10 mg tablet Take 1 tablet by mouth three times daily as needed for muscle spasm. (Patient not taking: Reported on 10/27/2023) cyanocobalamin (VITAMIN B-12) 1,000 mcg tab Take 1 tablet by mouth once daily. Vitamin E, dl, acetate, (VITAMIN E) 400 unit capsule Take 1 capsule by mouth twice daily. Per Gastro: Friend ursodiol (ACTIGALL) 300 mg capsule Take 1 capsule by mouth twice daily. Per Gastro: Friend ergocalciferol 50,000 unit capsule (VITAMIN D2, [...] of Symptoms REVIEW OF SYSTEMS GENERAL: No unintentional weight loss, malaise or fevers HEENT: Negative for frequent or significant headaches, No changes in hearing or vision, no nose bleeds or other nasal problems NECK: Negative for lumps, goiter, pain and significant neck swelling RESPIRATORY: Negative for cough, hemoptysis, COPD, dyspnea or shortness of breath. Occasional slight wheezing CARDIOVASCULAR: Negative for chest pain, increased leg swelling, hypertension, CHF or palpitations GI: No nausea, vomiting, or No heartburn or reflux symptoms, and no blood. Has had some recent diarrhea. : No history of dysuria, frequency or blood. MUSCULOSKELETAL: Negative for joint pain or swelling, back pain or muscle pain SKIN: Negative for lesions. Has some lesions on the back of her hands. PSYCH: Negative for sleep disturbance, mood disorder and recent psychosocial stressors HEMATOLOGY/LYMPHOLOGY: some on her hands. ENDOCRINE: Negative for cold or heat intolerance, polyuria, polydipsia and goiter NEURO: No history of syncope, paralysis, seizures or tremors EXAM: BP 126/84 (BP Site: Left Arm, BP Position: Sitting, BP Cuff Size: Large Adult) Pulse 76 Resp 16 Ht 172.7 cm (5' 8 ) Wt 95.3 kg (210 lb) LMP 03/12/2010 BMI 31.93 kg/m Last 4 Encounter Wt Readings: Date: Wt: 11/04/2023 95.3 kg (210 lb) 06/19/2023 97.5 kg (215 lb) 04/14/2023 97.5 kg (215 lb) 03/21/2023 98.8 kg (217 lb 12.8 oz) General Appearance: Well appearing, alert, in no acute distress, well-hydrated, well nourished.. Skin: Skin color, texture, turgor normal, no suspicious rashes or lesions. Head: Normocephalic, no masses, lesions, tenderness or abnormalities. Eyes: Anicteric sclera. Pupils are equally round and reactive to light. Extraocular movements are intact. . Ears: External ears, TM's normal, canals clear. Nose/Sinuses: Nares normal, septum midline, mucosa normal, [...] masses, organomegaly. Extremities: No deformities, edema, skin discoloration. Good capillary refill. . Musculoskeletal: Muscular strength intact, No joint swelling, deformity, or tenderness. Peripheral Pulses: Normal. Neurologic: Gait normal. Reflexes normal and symmetric. Sensation to light touch and crainal nerves 2- 12 intact.. Health Maintenance List RSV Vaccine(1 - 1-dose 60+ series) Never done Bone Density Screening Never done Colorectal Cancer Screening due on 03/12/2023 Advance Directive Discussion due on 07/14/2023 Behavioral Health Screening Never done Mammogram Screening due on 12/11/2023 Annual PCP Team Chronic Disease Visit due on 06/19/2024 BP Controlled (<130/80) due on 06/19/2024 Diabetes Screening due on 04/14/2026 Lipid Screening due on 10/09/2027 DTaP,Tdap,Td Vaccine(2 - Td or Tdap) due on 10/02/2031 Influenza Vaccine Completed Shingrix Vaccine Completed Covid-19 Vaccine Completed Pneumococcal Vaccine: 65+ Completed Pap Testing Discontinued Hepatitis C Screening Discontinued Data reviewed A/P ASSESSMENT/PLAN: 1. Encounter for Medicare annual wellness exam - ICD9: V70.0, ICD10: Z00.00 (primary diagnosis) - Counseled on healthy diet and regular exercise - Discussed need and benefit for weight loss. BMI 31.93 kg/(m^2) - Mammogram ordered - exam recommended once yearly - Follow up for annual exam in one year - - advised on RSV vaccine. - discussed DXA and patient declined today. 2. Essential hypertension - ICD9: 401.9, ICD10: I10 - Controlled - Continue current medications - Recommend home blood pressure monitoring, to bring results to next visit - Encouraged sodium restriction, DASH or Mediterranean diet - Recommend regular aerobic exercise - LOSARTAN 100 MG TABLET - HYDROCHLOROTHIAZIDE 25 MG TABLET check - COMPREHENSIVE METABOLIC PANEL - URINALYSIS, WITH MICROSCOPIC - LIPID PANEL, NONFASTING 3. Mixed hyperlipidemia - ICD9: 272.2, ICD10: E78.2 - await labs - Continue current medications - Counseled on healthy diet and regular exercise - ATORVASTATIN 40 MG TABLET Check - COMPREHENSIVE METABOLIC PANEL - URINALYSIS, WITH MICROSCOPIC - LIPID PANEL, NONFASTING 4. GERD without esophagitis - ICD9: 530.81, ICD10: K21.9 - Continue treatment with Protonix 40 mg BID Check - VITAMIN B12 - MAGNESIUM 5. Elevated fasting glucose - ICD9: 790.21, ICD10: R73.01 Check - COMPREHENSIVE METABOLIC PANEL - HEMOGLOBIN A1C - patient encouraged to cont with weight loss. 6. Vitamin D deficiency - ICD9: 268.9, ICD10: E55.9 Cont replacement Check - VITAMIN D 25 HYDROXY 7. Low serum vitamin B12 - ICD9: 266.2, ICD10: E53.8 Cont replacement Check - VITAMIN B12 - COMPLETE BLOOD COUNT AND DIFFERENTIAL 8. Liver fibrosis - ICD9: 571.5, ICD10: K74.00 Cont management per gastro Check - COMPREHENSIVE METABOLIC PANEL - COMPLETE BLOOD COUNT AND DIFFERENTIAL 9. 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 Obesity, Class I, BMI 30-34.9 - ICD9: 278.00, ICD10: E66.9 - improved weight. 11. Encounter for screening mammogram for breast cancer - ICD9: V76.12, ICD10: Z12.31 Check - SRINATH SCREENING 12. Advance directive discussed with patient - ICD9: V65.49, ICD10: Z71.89 - patient has packets. 13. Medication management - ICD9: V58.69, ICD10: Z79.899 Check - VITAMIN B12 - MAGNESIUM Requested Prescriptions Signed Prescriptions Disp Refills pantoprazole DR (PROTONIX) 40 mg tablet 180 tablet 0 Sig: Take 1 tablet by mouth two times a day. Take on empty stomach, 1/2 hr before meal. losartan (COZAAR) 100 mg tablet 90 tablet 0 Sig: Take 1 tablet by mouth once daily. hydroCHLOROthiazide 25 mg tablet 90 tablet 0 Sig: Take 1 tablet by mouth once daily. potassium chloride (K-TAB) 10 mEq tablet 90 tablet 0 Sig: Take 1 tablet by mouth daily with breakfast. atorvastatin (LIPITOR) 40 mg tablet 90 tablet 1 Sig: Take 1 tablet by mouth daily at bedtime. For cholesterol. F/u 6 months routine I spent a total of 40 minutes on the date of the service which included preparing to see the patient, [id number] patient care, completing clinical documentation, performing a medically appropriate examination, counseling and educating the patient/family/caregiver and ordering medications, tests, or procedures. Franklin Arias MD documented in this encounter [facility] 11-04-2023 Note HNO ID: [id number] Author: FRANKLIN ARIAS MD Service: ? Author Type: Physician Type: Progress Notes Filed: 11/04/2023 12:33 Note Text: Isabel Sahni is a 68 year old female here for a Medicare wellness visit. Medicare Health Risk Assessment General Health good Exercise: Minutes/Day None, just active daily Exercise: Days/Week Alcohol: Daily Use none Alcohol: Drinks/Day Alcohol: 6 or more drinks Feel off balance none Concerns: Teeth/Dentures Concerns: Sexual function Troubled by feelings none Frequency: Eating healthy diet 2 days ADLs requiring help none Safety precautions in home/vehicle Wears seat belts, no loss rugs. No grab bars. No stairs. Smoke, vape, chews tobacco quit Difficulty hearing no Difficulty seeing Wears eye glasses. Current Providers Specialists: I have reviewed specialist-related care of the patient in the medical record. Current care team: Patient Care Team: Franklin Arias MD as PCP - General (Family Medicine) Friend (Gastro) Medical/Family history review Reviewed and updated problem list, medical/surgical/family/social history, medications, and allergies. Opioid use review Opioid Medications (last 90 days) No data to display Depression screening Depression Screening PHQ-2 Score ZULAY-2 Total Score 11/04/2023 0 0 Depression screening tool completed and reviewed. Based on score and interview, patient is not at risk for depression. Screening tool discussed with patient, and I recommended no further intervention at this time. Cognitive screening Score: 4 Cognitive screening reviewed and No further action needed (score 3-5). Functional Observation Was the patient's Timed Up AND Go test unsteady or ? 12 seconds? No Advance Care Planning Patient did not wish or was not able to name a surrogate decision maker or provide an advance care plan Measurements BP 126/84 Pulse 76 Resp 16 Ht 5' 8 (1.73m) Wt 210 lb (95.3kg) LMP 03/12/2010 BMI 31.94 kg/(m2). Vision Screening: Follows with optometry/ophthalmology Assessment/Plan Welcome to Medicare preventive visit (Z00.00) - Counseled on healthy diet and regular exercise - Fall avoidance information provided - Personalized prevention plan provided See below Chief Complaint Patient presents with: Medicare Wellness Exam HPI Isabel Sahni is a 68 year old female who presents here today for Chronic Medical Conditions. and Medicare Annual Visit. Patient with hx of HTN, hyperlipidemia, liver fibrosis, elevated glucose, carotid stenosis, obesity, vit d def, pancreatic cyst, and those as below. Patient saw Ortho on 10/27/2023 for right shoulder pain. Patient has been doing ok. No concerns. Past medical history, appointments, medications, allergies reviewed. [...] Hydrocodone Cough, Vomiting, Shortness of Breath Ibuprofen Intoler (more content not included)... [facility] 10-27-2023 Note HNO ID: [id number] Author: SHANTAL RHODES PA-C Service: ? Author Type: Physician Director Hospice Operations Type: Progress Notes Filed: 10/27/2023 14:13 Note Text: Shantal Rhodes PA-C Department of Orthopaedics Orthopaedics [address] [facility] [address] Dept: [phone] Dept October 27, 2023 CHIEF COMPLAINT: Established Patient and Follow Up of the Right Shoulder. ASSESSMENT: M25.511 Acute pain of right shoulder (primary encounter diagnosis) M54.2 Cervicalgia M75.51 Bursitis of right shoulder SUMMARY/PLAN: Patient presents for a 9-week follow-up of her right shoulder pain. She had a subacromial corticosteroid injection on her last visit. She found the injection to be very helpful, no longer having pain when she raises her arm overhead, she is still getting some nighttime pain along the lateral aspect of the shoulder. Unable to tolerate NSAIDs. Her is having eye surgery, she will need to be there to help him put drops in. Once her is more recovered we discussed potentially getting some additional imaging of the shoulder. I am happy to see her back for a repeat corticosteroid injection, assuming it is in the 91 days. We also discussed she has some disc disease in her neck, we can get her into some PT for that patient agrees to plan. Exam: Supple range of motion of the cervical spine without pain. Spurling signs are negative. No atrophy of the deltoid and shoulder musculature. Right shoulder is nontender to palpation over the SC joint, clavicle and AC joint. No tenderness to palpation over the posterior shoulder, nontender at anterior lateral corner of the shoulder and greater tuberosity. Nontender at the bicipital groove and coracoid. Active range of motion is 150 degrees of forward elevation, 60 degrees external rotation, and internal rotation to the low lumbar spine. Passive range of motion is 150 degrees, 65 degrees, respectively. No laxity with anterior and posterior stress. Negative Neer and positive Bernardo impingement signs. 4+ /5 strength with supraspinatus, 5/5 strength testing with infraspinatus and subscapularis. Sensation is intact in the axillary, radial, median and ulnar nerve distribution Ms. Isabel Sahni was advised as to contrast therapies and/or to take analgesics/anti-inflammatories as needed and all contraindications were reviewed. Supporting Information Below: Medications: Current Outpatient Medications Medication Sig metFORMIN (GLUCOPHAGE) 500 mg tablet Take 1 tablet by mouth every [address] (PROTONIX) 40 mg tablet Take 1 tablet by mouth two times a day. Take on empty stomach, 1/2 hr before meal. losartan (COZAAR) 100 mg tablet Take 1 tablet by mouth once daily. hydroCHLOROthiazide 25 mg tablet Take 1 tablet by mouth once daily. potassium chloride (K-TAB) 10 mEq tablet Take 1 tablet by mouth daily with breakfast. atorvastatin (LIPITOR) 40 mg tablet Take 1 tablet by mouth daily at bedtime. For cholesterol. diclofenac (VOLTAREN) 1 % topical gel Apply 4 g to affected area four times daily. loratadine (CLARITIN) 10 mg tablet Take [...] capsule by mouth one time a week. cyclobenzaprine (FLEXERIL) 10 mg tablet Take 1 tablet by mouth three times daily as needed for muscle spasm. (Patient not taking: Reported on 10/27/2023) No current facility-administered medications for this visit. Allergies: Asa [Salicylates], Phenergan [Promethazine], Codeine, Hydrocodone, Ibuprofen, Lisinopril, and Oxycodone This note was partially generated using [employer] voice recognition system, and there may be some incorrect words, spellings, and punctuation that were not noted in checking the note before saving. Shantal Rhodes PA-C [facility] 10-27-2023 History of Present illness Narrative Shantal Rhodes PA-C Department of Orthopaedics Orthopaedics [address] [facility] [address] Dept: [phone] Dept October 27, 2023 CHIEF COMPLAINT: Established Patient and Follow Up of the Right Shoulder. ASSESSMENT: M25.511 Acute pain of right shoulder (primary encounter diagnosis) M54.2 Cervicalgia M75.51 Bursitis of right shoulder SUMMARY/PLAN: Patient presents for a 9-week follow-up of her right shoulder pain. She had a subacromial corticosteroid injection on her last visit. She found the injection to be very helpful, no longer having pain when she raises her arm overhead, she is still getting some nighttime pain along the lateral aspect of the shoulder. Unable to tolerate NSAIDs. Her is having eye surgery, she will need to be there to help him put drops in. Once her is more recovered we discussed potentially getting some additional imaging of the shoulder. I am happy to see her back for a repeat corticosteroid injection, assuming it is in the 91 days. We also discussed she has some disc disease in her neck, we can get her into some PT for that patient agrees to plan. Exam: Supple range of motion of the cervical spine without pain. Spurling signs are negative. No atrophy of the deltoid and shoulder musculature. Right shoulder is nontender to palpation over the SC joint, clavicle and AC joint. No tenderness to palpation over the posterior shoulder, nontender at anterior lateral corner of the shoulder and greater tuberosity. Nontender at the bicipital groove and coracoid. Active range of motion is 150 degrees of forward elevation, 60 degrees external rotation, and internal rotation to the low lumbar spine. Passive range of motion is 150 degrees, 65 degrees, respectively. No laxity with anterior and posterior stress. Negative Neer and positive Bernardo impingement signs. 4+ /5 strength with supraspinatus, 5/5 strength testing with infraspinatus and subscapularis. Sensation is intact in the axillary, radial, median and ulnar nerve distribution Ms. Isabel Sahni was advised as to contrast therapies and/or to take analgesics/anti-inflammatories as needed and all contraindications were reviewed. Supporting Information Below: Medications: Current Outpatient Medications Medication Sig metFORMIN (GLUCOPHAGE) 500 mg tablet Take 1 tablet by mouth every [address] (PROTONIX) 40 mg tablet Take 1 tablet by mouth two times a day. Take on empty stomach, 1/2 hr before meal. losartan (COZAAR) 100 mg tablet Take 1 tablet by mouth once daily. hydroCHLOROthiazide 25 mg tablet Take 1 tablet by mouth once daily. potassium chloride (K-TAB) 10 mEq tablet Take 1 tablet by mouth daily with breakfast. atorvastatin (LIPITOR) 40 mg tablet Take 1 tablet by mouth daily at bedtime. For cholesterol. diclofenac (VOLTAREN) 1 % topical gel Apply 4 g to affected area four times daily. loratadine (CLARITIN) 10 mg tablet Take [...] capsule by mouth one time a week. cyclobenzaprine (FLEXERIL) 10 mg tablet Take 1 tablet by mouth three times daily as needed for muscle spasm. (Patient not taking: Reported on 10/27/2023) No current facility-administered medications for this visit. Allergies: Asa [Salicylates], Phenergan [Promethazine], Codeine, Hydrocodone, Ibuprofen, Lisinopril, and Oxycodone This note was partially generated using [employer] voice recognition system, and there may be some incorrect words, spellings, and punctuation that were not noted in checking the note before saving. Shantal Rhodes PA-C [facility] ROOMING INTAKE FLOWSHEET DATA Patient presents with: Right Shoulder - Established Patient, Follow Up Patient presents for 9 week follow up of right shoulder pain and cervicalgia. Xray was done 08/25/23 of cervical and 06/19/23. Received steroid injection at [facility] on 08/25/23. Patient states that the injection helped initially. Some soreness still, but better than before. documented in this encounter [facility] 10-27-2023 Note HNO ID: [id number] Author: FLORENCIA FOSTER RN Service: ? Author Type: Registered Nurse Type: Progress Notes Filed: 10/27/2023 14:13 Note Text: [facility] ROOMING INTAKE FLOWSHEET DATA Patient presents with: Right Shoulder - Established Patient, Follow Up Patient presents for 9 week follow up of right shoulder pain and cervicalgia. Xray was done 08/25/23 of cervical and 06/19/23. Received steroid injection at [facility] on 08/25/23. Patient states that the injection helped initially. Some soreness still, but better than before. [facility] 08-26-2023 Miscellaneous Notes Spoke with patient and relayed message. Patient verbalized understanding. Can we let the patient know that I got the x-ray results of her neck, she does have disc disease at multiple levels in her cervical spine. If she does not get any improvement with the shoulder corticosteroid injection then I would suggest getting her into physical therapy to work on her neck. If she continues to have issues then we should get her into see one of our spine or pain management providers. Order for PT in Epic. documented in this encounter [facility] 08-25-2023 Note HNO ID: [id number] Author: SHANTAL RHODES PA-C Service: ? Author Type: Physician Director Hospice Operations Type: Progress Notes Filed: 08/25/2023 14:57 Note Text: Shantal Rhodes PA-C Department of Orthopaedics Orthopaedics [address] [facility] [address] Dept: [phone] Dept August 25, [address] Juany Lawrence for an opinion regarding right shoulder pain. My final recommendations will be communicated back to the requesting physician by way of shared Medical record or letter to requesting physician via [place] mail. CHIEF COMPLAINT: New and Pain of the Right Shoulder Ms. Isabel Sahni is a 68 year old female who presents with right shoulder pain, awoke 2 months ago with pain, no known injury. Pain is a 9/10 burning throbbing in the shoulder. Pain worse at night, has some pain radiating down to the forearm. Denies numbness or tingling in hand. Difficulty lifting the arm, using her other arm to help lift. Not taking any NSAIDs, has uncontrolled GERD. Reports trying ice, heat and topicals with little to no relief. 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 ASSESSMENT: M75.51 Bursitis of right shoulder (primary encounter diagnosis) M25.511 Acute pain of right shoulder M54.2 Cervicalgia PLAN: She is so acutely tender in her shoulder that she is hard to examine. Certainly seams to have some shoulder impingement but some of her history also seams radicular in nature. Can't tolerate NSAIDs, so we will try a steroid injection and also get some cervical films for further evaluation. Ms. Isabel Sahni was advised as to contrast therapies and/or to take analgesics/anti-inflammatories as needed and all contraindications were reviewed. OBJECTIVE: Ms. Isabel Sahni is a pleasant 68 year old in no apparent distress. Gen:LMP 03/12/2010 nl development, obese, no deformities ENT: Normocephalic, normal hearing, moist mucosa CV: Pulses:Radial= 2+ and symmetric, capillary refill < 2 secs, no peripheral edema/varicosities Skin: no rash, bruising or lesions. Good turgor. Psych: cooperative and appropriate, alert and oriented x 3, good mood and affect. Musculoskeletal: Supple range of motion of the cervical spine without pain. Spurling signs are negative. No atrophy of the deltoid and shoulder musculature. Right shoulder is tender to palpation over the SC joint, clavicle and AC joint. positive tenderness to palpation over the posterior shoulder, tender at the anterior lateral corner of the shoulder and greater tuberosity. tender at the bicipital groove and coracoid. Patient resiant to active ROM. Passive range of motion limited by pain. No laxity with anterior and posterior stress. positive Neer and positive Bernardo impingement signs. Strength testing limited by pain. Sensation is intact in the axillary, radial, median and ulnar nerve distribution In addition to the comprehensive evaluation, assessment and plan outlined above, and as a distinct and separate element to the visit today, separate from imaging tests for additional assessment, we have made the determination to proceed with an injection to aid in the management of the patient's condition. We discussed the risks, benefits, alternatives and expected outcomes of this injection in detail, and the patient agreed to proceed. The procedure was performed as detailed below. Large Joint Arthro/Inj: R subacromial bursa Informed Consent Consent Obtained: Verbal [place] Protocol A moment to CARE was completed. SIGN IN Sign in communication not applicable due to emergent procedure. Personnel directly involved with the procedure wore the appropriate PPE. Special Equipment: N/A Patient/Surrogate Stated/Verified: Patient name, Date of , Relevant allergies and Intended procedure TIME OUT Intended patient and procedure match the source document(s). Consent documented and matches the intended procedure. Relevant labs, photos, and/or imaging studies have been reviewed. Correct side/site marked and visible. Medications required for procedure verified. No fire risk assessment and interventions applicable. No implant(s) inserted. 08/25/2023 2:48 PM The procedure site was prepped in the usual sterile fashion. Site: R subacromial bursa Medications: 6 mg betamethasone acetate-betamethasone sodium phosphate 6 mg/mL Anesthetics: 4 mL lidocaine (PF) 10 mg/mL (1 %) Outcome: Tolerated well, no immediate complications Post-injection instructions were reviewed with the patient and the patient voiced understanding of these instructions. SIGN OUT All instruments, equipment, possible retained foreign bodies accounted for. Imaging: IMPRESSION: NO ACUTE FINDINGS. [employer] Cartoonist: MARIA DOLORES Transcribe Date/Time: Jun 23 2023 6:25A Dictated by : EN MONTANO MD This examination was interpreted and the report reviewed and electronically sig (more content not included)... [facility] 08-25-2023 History of Present illness Narrative Associated Order(s): Large Joint Arthro/Inj: R subacromial bursa Post-Procedure Diagnose(s): Bursitis of right shoulder; Acute pain of right shoulder Shantal Rhodes PA-C Department of Orthopaedics Orthopaedics [address] [place] [address] Dept: [phone] Dept August 25, [address] Juany Lawrence for an opinion regarding right shoulder pain. My final recommendations will be communicated back to the requesting physician by way of shared Medical record or letter to requesting physician via [place] mail. CHIEF COMPLAINT: New and Pain of the Right Shoulder Ms. Isabel Sahni is a 68 year old female who presents with right shoulder pain, awoke 2 months ago with pain, no known injury. Pain is a 9/10 burning throbbing in the shoulder. Pain worse at night, has some pain radiating down to the forearm. Denies numbness or tingling in hand. Difficulty lifting the arm, using her other arm to help lift. Not taking any NSAIDs, has uncontrolled GERD. Reports trying ice, heat and topicals with little to no relief. 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 ASSESSMENT: M75.51 Bursitis of right shoulder (primary encounter diagnosis) M25.511 Acute pain of right shoulder M54.2 Cervicalgia PLAN: She is so acutely tender in her shoulder that she is hard to examine. Certainly seams to have some shoulder impingement but some of her history also seams radicular in nature. Can't tolerate NSAIDs, so we will try a steroid injection and also get some cervical films for further evaluation. Ms. Isabel Sahni was advised as to contrast therapies and/or to take analgesics/anti-inflammatories as needed and all contraindications were reviewed. OBJECTIVE: Ms. Isabel Sahni is a pleasant 68 year old in no apparent distress. Gen:LMP 03/12/2010 nl development, obese, no deformities ENT: Normocephalic, normal hearing, moist mucosa CV: Pulses:Radial= 2+ and symmetric, capillary refill < 2 secs, no peripheral edema/varicosities Skin: no rash, bruising or lesions. Good turgor. Psych: cooperative and appropriate, alert and oriented x 3, good mood and affect. Musculoskeletal: Supple range of motion of the cervical spine without pain. Spurling signs are negative. No atrophy of the deltoid and shoulder musculature. Right shoulder is tender to palpation over the SC joint, clavicle and AC joint. positive tenderness to palpation over the posterior shoulder, tender at the anterior lateral corner of the shoulder and greater tuberosity. tender at the bicipital groove and coracoid. Patient resiant to active ROM. Passive range of motion limited by pain. No laxity with anterior and posterior stress. positive Neer and positive Bernardo impingement signs. Strength testing limited by pain. Sensation is intact in the axillary, radial, median and ulnar nerve distribution In addition to the comprehensive evaluation, assessment and plan outlined above, and as a distinct and separate element to the visit today, separate from imaging tests for additional assessment, we have made the determination to proceed with an injection to aid in the management of the patient's condition. We discussed the risks, benefits, alternatives and expected outcomes of this injection in detail, and the patient agreed to proceed. The procedure was performed as detailed below. Large Joint Arthro/Inj: R subacromial bursa Informed Consent Consent Obtained: Verbal [place] Protocol A moment to CARE was completed. SIGN IN Sign in communication not applicable due to emergent procedure. Personnel directly involved with the procedure wore the appropriate PPE. Special Equipment: N/A Patient/Surrogate Stated/Verified: Patient name, Date of , Relevant allergies and Intended procedure TIME OUT Intended patient and procedure match the source document(s). Consent documented and matches the intended procedure. Relevant labs, photos, and/or imaging studies have been reviewed. Correct side/site marked and visible. Medications required for procedure verified. No fire risk assessment and interventions applicable. No implant(s) inserted. 08/25/2023 2:48 PM The procedure site was prepped in the usual sterile fashion. Site: R subacromial bursa Medications: 6 mg betamethasone acetate-betamethasone sodium phosphate 6 mg/mL Anesthetics: 4 mL lidocaine (PF) 10 mg/mL (1 %) Outcome: Tolerated well, no immediate complications Post-injection instructions were reviewed with the patient and the patient voiced understanding of these instructions. SIGN OUT All instruments, equipment, possible retained foreign bodies accounted for. Imaging: IMPRESSION: NO ACUTE FINDINGS. [employer] Cartoonist: MARIA DOLORES Transcribe Date/Time: Jun 23 2023 6:25A Dictated by : EN MONTANO MD This examination was interpreted and the report reviewed and electronically signed by: EN MONTANO MD on Jun 23 2023 6:25AM EST Results-Findings * * *Final Report* * * DATE OF EXAM: Jun 19 2023 3:03PM WOX [id number] - XR SHOULDER 2V AP/TRUE AP RT / PROCEDURE REASON: Acute pain of right shoulder * * * * Physician Interpretation * * * * HISTORY: Anterior right shoulder pain x 2 weeks with limited range of motion. No known injury.. Acute pain of right shoulder . TECHNIQUE: XR SHOULDER 2V AP/TRUE AP RT Laterality: RIGHT Number of different views (projections): 2 COMPARISON: None RESULT: There is no evidence of acute fracture or dislocation. The subacromial space is preserved. The glenohumeral joint space is maintained. There are degenerative changes in the partially visualized cervical spine. - Supporting Subjective Information Below: Past Surgical History: PAST SURGICAL HISTORY Procedure Laterality Date ABDOMINAL [...] OF 03/17/2007 Left knee surgery TONSILLECTOMY HX Medications: Current Outpatient Medications Medication Sig metFORMIN (GLUCOPHAGE) 500 mg tablet Take 1 tablet by mouth every [address] (PROTONIX) 40 mg tablet Take 1 tablet by mouth two times a day. Take on empty stomach, 1/2 hr before meal. losartan (COZAAR) 100 mg tablet Take 1 tablet by mouth once daily. hydroCHLOROthiazide 25 mg tablet Take 1 tablet by mouth once daily. potassium chloride (K-TAB) 10 mEq tablet Take 1 tablet by mouth daily with breakfast. atorvastatin (LIPITOR) 40 mg tablet Take 1 tablet by mouth daily at bedtime. For cholesterol. diclofenac (VOLTAREN) 1 % topical gel Apply 4 g to affected area four times daily. loratadine (CLARITIN) 10 mg tablet Take [...] time a week. No current facility-administered medications for this visit. Allergies: Asa [Salicylates], Phenergan [Promethazine], Codeine, Hydrocodone, Ibuprofen, Lisinopril, and Oxycodone ROS: General (negative for fatigue, malaise, weight loss/gain) HEENT (negative for headache, earache, recent vision changes, sinus pain, sore throat) Respiratory (no recent shortness of breath, hemoptysis) CV (negative for chest tightness, palpitations) Musculoskeletal (see HPI) Psych (no depression, anxiety) This note was partially generated using [employer] voice recognition system, and there may be some incorrect words, spellings, and punctuation that were not noted in checking the note before saving. Shantal Rhodes PA-C Patient presents with: Right Shoulder - New, Pain AMB ROOMING INTAKE FLOWSHEET DATA Pain Pain Level: 9 Pain Location: Shoulder-Right Description: Stiffness, Burning Duration Amount of Time: 2 Duration Units: Months Intervention/Comfort measure: Relaxation Right shoulder pain that she woke up with one morning. States pain is worse at night and radiates down to the hand. 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 documented in this encounter [facility] 08-25-2023 History of Present illness Narrative Radiology Service Progress Note PATIENT NAME: Isabel Sahni DATE OF SERVICE: August 25, 2023 TIME: 3:25 PM PATIENT IDENTITY VERIFICATION COMPLETED USING TWO (2) IDENTIFIERS: Name and Date of confirmed by patient verbally. FALL SCREENING: Has the patient had 2 falls in the last year or 1 fall with injury or currently using an Ambulatory Assistive Device (Walker, Cane, Wheelchair, Crutches, etc.)? No PATIENT GENDER DATA: Female. status: : No status: NO. PATIENT RELEVANT IMPLANT DATA REVIEWED: Not Applicable PATIENT PRESENTS WITH AN IMPLANTABLE OR ATTACHED BLOOD BANK LABORATORY TECHNICIAN: No RADIOLOGY DEPARTMENT: General X-ray: Exam(s) Completed: Spine X-Ray(s): Cervical AP / LAT / OBL PERIPHERAL IV DATA: Not applicable SIGNED BY: RT Kylah(R) August 25, 2023 3:25 PM documented in this encounter [facility] 08-25-2023 Note HNO ID: [id number] Author: KAT ANDREWS RT(Olga) Service: ? Author Type: Technologist Type: Progress Notes Filed: 08/25/2023 15:25 Note Text: Radiology Service Progress Note PATIENT NAME: Isabel Sahni DATE OF SERVICE: August 25, 2023 TIME: 3:25 PM PATIENT IDENTITY VERIFICATION COMPLETED USING TWO (2) IDENTIFIERS: Name and Date of confirmed by patient verbally. FALL SCREENING: Has the patient had 2 falls in the last year or 1 fall with injury or currently using an Ambulatory Assistive Device (Walker, Cane, Wheelchair, Crutches, etc.)? No PATIENT GENDER DATA: Female. status: : No status: NO. PATIENT RELEVANT IMPLANT DATA REVIEWED: Not Applicable PATIENT PRESENTS WITH AN IMPLANTABLE OR ATTACHED BLOOD BANK LABORATORY TECHNICIAN: No RADIOLOGY DEPARTMENT: General X-ray: Exam(s) Completed: Spine X-Ray(s): Cervical AP / LAT / OBL PERIPHERAL IV DATA: Not applicable SIGNED BY: RT Kylah(R) August 25, 2023 3:[address] [facility] 08-25-2023 Note HNO ID: [id number] Author: RUTH DE LA VEGA RN Service: ? Author Type: Registered Nurse Type: Progress Notes Filed: 08/25/2023 14:57 Note Text: Patient presents with: Right Shoulder - New, Pain AMB ROOMING INTAKE FLOWSHEET DATA Pain Pain Level: 9 Pain Location: Shoulder-Right Description: Stiffness, Burning Duration Amount of Time: 2 Duration Units: Months Intervention/Comfort measure: Relaxation Right shoulder pain that she woke up with one morning. States pain is worse at night and radiates down to the hand. 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 [facility] 08-19-2023 Miscellaneous Notes Detailed VM left on pt's identified voicemail of information below. Heena Goss LPN Patient do for complete PE in October 2023. The following approved medication requests have been transmitted electronically. Requested Prescriptions Signed Prescriptions Disp Refills pantoprazole DR (PROTONIX) 40 mg tablet 180 tablet 0 Sig: Take 1 tablet by mouth two times a day. Take on empty stomach, 1/2 hr before meal. Authorizing Provider: FRANKLIN ARIAS losartan (COZAAR) 100 mg tablet 90 tablet 0 Sig: Take 1 tablet by mouth once daily. Authorizing Provider: FRANKLIN ARIAS hydroCHLOROthiazide 25 mg tablet 90 tablet 0 Sig: Take 1 tablet by mouth once daily. Authorizing Provider: FRANKLIN ARAIS MD Patient has been identified by name and date of : Yes, Patient phones for refill(s): Requested Prescriptions Pending Prescriptions Disp Refills pantoprazole DR (PROTONIX) 40 mg tablet 180 tablet 1 Sig: Take 1 tablet by mouth two times a day. Take on empty stomach, 1/2 hr before meal. losartan (COZAAR) 100 mg tablet 90 tablet 1 Sig: Take 1 tablet by mouth once daily. hydroCHLOROthiazide 25 mg tablet 90 tablet 1 Sig: Take 1 tablet by mouth once daily. Date of last office visit in primary care: 06/19/2023 Date of next office visit in primary care: Visit date not found Please advise. Thank you. Johanne Sanders. documented in this encounter [facility] 06-19-2023 History of Present illness Narrative Radiology Service Progress Note PATIENT [...] PERIPHERAL IV DATA: Not applicable SIGNED BY: MICHAEL Ca) June 19, 2023 2:52 PM documented in this encounter [facility] 06-19-2023 Note HNO ID: [id number] Author: Giselle Robles RT(R) Service: Radiology Author [...] IV DATA: Not applicable SIGNED BY: RT Lanny(Olga) June 19, 2023 2:[address] [facility] 06-19-2023 Note HNO ID: [id number] Author: Juany Lawrence APRN.DIVORCE MEDIATOR Service: ? Author Type: Nurse Practitioner Type: [...] capsule by mouth twice daily. Per Gastro: Friend ergocalciferol 50,000 unit capsule (VITAMIN D2, [...] right shoulder pa (more content not included)... [facility] 04-15-2023 Miscellaneous Notes Patient notified and verbalized understanding Jayce Romero Cma Please let patient know her potassium is low and likely contributing to her leg cramps. I have ordered potassium supplementation and want her to repeat her labs in 1 week. documented in this encounter [facility] 04-14-2023 Note HNO ID: [id number] Author: Juany Lawrence APRN.LAZARO Service: ? Author Type: Nurse Practitioner Type: [...] she hurt it at work. Works at [employer] and stands a lot throughout her shift. [...] kg/m? General Appeara (more content not included)... [facility] 03-21-2023 Note HNO ID: [id number] Author: Josselyn Waters APRN.[facility] Service: ? Author Type: Nurse Practitioner Type: [...] Substance Use Topi (more content not included)... [facility] 03-21-2023 History of Present illness Narrative CC: Patient presents with: Cough: [...] capsule by mouth twice daily. Per Gastro: Friend ursodiol (ACTIGALL) 300 mg capsule Take [...] seem to be getting worse not better. Josselyn Waters APRN.LAZARO Prescription instructions reviewed with patient as applicable. Potential red flag symptoms discussed with the patient. Reviewed appropriate action plan to take if red flag symptoms occur. Patient agreeable to treatment plan. Josselyn Waters APRN.LAZARO documented in this encounter [facility] 12-11-2022 Miscellaneous Notes Lft message of same on pt's identified vm. Altaf Bean LPN ----- Message from Cecily Coelho PA-C sent at 12/11/2022 8:10 AM EDT ----- Normal mammogram. Repeat in 1 year. documented in this encounter [facility] 12-10-2022 Miscellaneous Notes December 11, 2022 PID: [id number] Isabel Sahni [address] [place] [address] Dear Bora, We are pleased to inform you that [...] report will be kept on file at [facility] as part of your permanent medical record and are available for your continuing care. Thank you for allowing us to help in meeting your health care needs. Sincerely, Dr. Goldstein Interpreting Radiologist [facility] (Normal over 40) documented in this encounter [facility] 12-10-2022 History of Present illness Narrative Radiology Service Progress Note PATIENT [...] RT Mirta(R) December 10, 2022 12:54 PM documented in this encounter [facility] 11-05-2022 History of Present illness Narrative This note was created using NoteWriter. Subjective Isabel Sahni is a 67 year old female. HPI 67-year-old female presents for sinus congestion, sinus pressure, cough x3 weeks. Patient states she has had nasal congestion for the past 2 to 3 weeks. She has had a cough as well. She states she has a lot of headaches and sinus pressure. She has been taking lkoa-dka-cildtzz medications without much improvement. No fevers recently, [...] capsule by mouth twice daily. Per Gastro: Friend ursodiol (ACTIGALL) 300 mg capsule Take 1 capsule by mouth twice daily. Per Gastro: Friend ergocalciferol 50,000 unit capsule (VITAMIN D2, [...] evaluation. DEVAUGHN Mcgowan documented in this encounter [facility] 10-14-2022 Miscellaneous Notes The following approved medication requests have been transmitted electronically. Requested Prescriptions Signed Prescriptions Disp Refills atorvastatin (LIPITOR) 40 mg tablet 90 tablet 1 Sig: Take 1 tablet by mouth daily at bedtime. For cholesterol. Authorizing Provider: CECILY COELHO PA-C Reviewed results and instructions with [...] she prefer? Everything else looks good. Thanks. Cecily Coelho PA-C documented in this encounter [facility] 10-08-2022 History of Present illness Narrative Chief Complaint Patient presents with: [...] diet of 1000 mg/day for under 50, 1926-6550 mg/day for 50+ - Patient was counseled [id number]-slyo by myself (the billing provider) for the [...] ICD10: Z23 - ZOSTER VACCINE, RECOMBINANT (SHINGRIX) Cecily Coelho PA-C Follow up 6 months. documented in this encounter [facility] 08-06-2022 Miscellaneous Notes Pharmacy verified in [facility] Patient has been identified by name and [...] Mariya Meza Pss documented in this encounter [facility] 05-20-2022 History of Present illness Narrative Patient presents with: Knee Pain: [...] Hal Desai MD documented in this encounter [facility] 05-14-2022 Instructions Florencia Lew PA-C - 05/14/2022 9:51 AM EDT The following instructions are important for you related to your office visit today with the [facility]. INSTRUCTIONS FOLLOWING A POLYP FOUND [...] you should contact our office immediately @ [phone] and ask to be transferred to the General Surgery department. documented in this encounter [facility] 05-14-2022 History of Present illness Narrative FOLLOW UP VISIT - ENDOSCOPY NAME: Isabel Sahni [facility] NO.: [id number] DATE OF SERVICE: 05/14/2022 : 1955 REFERRING PHYSICIAN: Franklin Arias MD Isabel is a patient I [...] which included preparing to see the patient, [id number] patient care, completing clinical documentation, obtaining and/or reviewing separately obtained history, communicating with other HCPs (not separately reported), independently interpreting results (not separately reported), and communicating results to the patient/family/caregiver. Florencia Lew PA-C documented in this encounter [facility] 05-08-2022 Miscellaneous Notes Patient notified of results and provider's instructions. Patient verbalizes understanding. Joy Mcfarlane RN Left message for pt to contact office. 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 No changes in Tx needed. documented in this encounter [facility] 05-07-2022 Miscellaneous Notes Pt notified of same with verbalized understanding. Altaf Bean LPN Xray does show moderate arthritic changes. documented in this encounter [facility] 05-07-2022 History of Present illness Narrative Radiology Service Progress Note PATIENT NAME: Isabel Sahni DATE OF SERVICE: May 07, 2022 TIME: 11:08 AM PATIENT IDENTITY VERIFICATION COMPLETED USING TWO (2) [...] Yes RADIOLOGY DEPARTMENT: General X-ray: Exam(s) Completed: Spine X-Ray(s): Lumbar AP / LAT / L5-S1 PERIPHERAL IV DATA: Not applicable SIGNED BY: RT Lanny(R) May 07, 2022 11:08 AM documented in this encounter [facility] 05-07-2022 Instructions Cecily Coelho PA-C - 05/07/2022 10:[address] Corona's office for refills on documented in this encounter [facility] 05-07-2022 History of Present illness Narrative Chief Complaint Patient presents with: [...] declines. - XR LUMBAR GENERAL 3V AP/LAT/L5-S1 Cecily Coelho PA-C documented in this encounter [facility] 04-29-2022 History of Present illness Narrative Patient presents for flu and COVID vaccines. Denies any problems at this time. Tolerated injections well. Rosie Trejo LPN documented in this encounter [facility] 04-16-2022 Miscellaneous Notes Unable to reach. Left detailed message on identified VM with provider's result. Jayce Hudson MA Yes. Recent labs are all okay Left message for patient. ANASTASIYA Mims Dr. Labs?? Let patient know recent were all ok. documented in this encounter [facility] 04-09-2022 Instructions Franklin Arias MD - 04/09/2022 9:06 AM EDT Wait to complete your blood work until on or after 04/26/2022 documented in this encounter [facility] 04-09-2022 History of Present illness Narrative Chief Complaint Patient presents with: [...] Abs Lymph 1.00 - 4.00 k/uL 2.17 [place]% % 9.0 Abs [place] <0.87 k/uL 0.44 Eosin% % 0.0 Abs [...] Negative Negative Ketones, Urine Negative Negative Specific [place], Ur 1.005 - 1.030 1.012 Hemoglobin/Blood,Ur Negative [...] in 4 weeks F/u 6 months WAE Franklin Arias MD documented in this encounter [facility] 03-12-2022 Nurse Note Arrived in phase [...] 1 year and should be done in [place] so MAC can be offered. documented in this encounter [facility] 03-12-2022 History and physical note UPDATED [...] AND PHYSICAL Isabel Sahni 1955 REFERRING PHYSICIAN: Cecily Coelho PA-C CHIEF COMPLAINT: Consult (Colonoscopy) HPI: [...] entered by the nurse and reviewed by fl Nursing Notes: Ana Mejía 11/05/2021 9:12 AM [...] patient was offered a surgery/procedure at a [facility] facility. I have counseled the patient [...] adenoma polyp of rectum Consultation requested by Cecily Coelho PA-C for an opinion regarding history of colon polyps and need for surveillance colonoscopy. My final recommendations will be communicated back to the requesting physician by way of shared Medical record or letter to requesting physician via US mail. Florencia Lew PA-C Images from the original note were not included. HISTORY AND PHYSICAL Isabel Sahni 1955 REFERRING PHYSICIAN: Cecily Coelho PA-C CHIEF COMPLAINT: Consult (Colonoscopy) HPI: [...] entered by the nurse and reviewed by fl Nursing Notes: Ana Mejía 11/05/2021 9:12 AM [...] patient was offered a surgery/procedure at a [facility] facility. I have counseled the patient [...] adenoma polyp of rectum Consultation requested by Cecily Coelho PA-C for an opinion regarding history of colon polyps and need for surveillance colonoscopy. My final recommendations will be communicated back to the requesting physician by way of shared Medical record or letter to requesting physician via US mail. Florencia Lew PA-C documented in this encounter [facility] 01-10-2022 Miscellaneous Notes Spoke with patient. [...] increase potassium in diet. Recheck 2 weeks. Cecily Coelho PA-C documented in this encounter [facility] 01-08-2022 History of Present illness Narrative Chief Complaint Patient presents with: [...] Encounter BP Readings: Date: BP: 01/08/2022 110/64[bp elizabeth[ 12/25/2021 163/89[Average[ 12/24/2021 178/94 Past medical history, [...] F/u as scheduled. Return for repeat c-scope. Cecily Coelho PA-C documented in this encounter [facility] 01-02-2022 Miscellaneous Notes Medications reviewed and [...] has at home. documented in this encounter [facility] 12-25-2021 Miscellaneous Notes Pt was seen in office today. Altaf Bean LPN Called and left a detailed voicemail notifying patient of providers message. Hospital phone number was left so patient could call back and schedule an appointment. Florencia Johnston RN Needs an appointment. Her last BP check within Family medicine was 124/81. Cecily Coelho PA-C Received a call from Dr. [...] scheduled for follow up on BP. Sophia Waters MA documented in this encounter [facility] 12-25-2021 Instructions Cecily Coelho PA-C - 12/25/2021 10:49 AM EDT [...] cover it. May need to buy OTC. Cecily Coelho PA-C documented in this encounter [facility] 12-25-2021 History of Present illness Narrative Chief Complaint Patient presents with: [...] 178/94 12/06/2021 144/82 11/05/2021 178/80 10/22/2021 124/81[BP Elizabeth average[ 10/01/2021 174/89 Past medical history, appointments, [...] ICD9: 577.2, ICD10: K86.2 Continue with gasto. Cecily Coelho PA-C documented in this encounter [facility] 12-25-2021 Nurse Note BP AVERAGE 1. 170/89 2. 156/82 69 3. 160/80 71 4. 174/121 72 5. 162.84 71 6. 154/78 69 Average 163/89 70 documented in this encounter [facility] 12-24-2021 Nurse Note Patient returned to [...] patient in PACU. documented in this encounter [facility] 12-24-2021 History and physical note Images from the original note were not included. HISTORY AND PHYSICAL Isabel Sahni 1955 REFERRING PHYSICIAN: Cecily Coelho PA-C CHIEF COMPLAINT: Consult (Colonoscopy) HPI: [...] entered by the nurse and reviewed by fl Nursing Notes: Ana Mejía 11/05/2021 9:12 AM [...] patient was offered a surgery/procedure at a [facility] facility. I have counseled the patient [...] adenoma polyp of rectum Consultation requested by Cecily Coelho PA-C for an opinion regarding history [...] TIME: 9:22 AM documented in this encounter [facility] 12-07-2021 Miscellaneous Notes Phone call placed brief message to contact a nurse. Korina Goss LPN ----- Message from Crys Leary APRN.DIVORCE MEDIATOR sent at 12/07/2021 7:14 AM EDT ----- Please notify patient of negative COVID test. documented in this encounter [facility] 12-07-2021 Miscellaneous Notes VM left with results, phone number left to call back with any questions. Mireya Baltazar MA Negative for covid please notify thank you documented in this encounter [facility] 12-06-2021 History of Present illness Narrative Patient presents with: Cough: Pt denied chest pain, SOB reported Man[place], sore throat pain rated 7, x1 week HPI: Feeling sick for 5 days. Positive symptoms: Cough, Sore throat, Headache, Nasal Congestion, Rhinorrhea, Body Aches, Negative symptoms: Shortness of breath, Chest pain, Nausea, Vomiting, Diarrhea, OTC: Nyquil Completed fourth dose of Populis COVID-19 vaccine in October. PAST MEDICAL HISTORY [...] Hal Desai MD documented in this encounter [facility] 11-09-2021 Miscellaneous Notes Patient returned call [...] put in consult. documented in this encounter [facility] 11-07-2021 History of Present illness Narrative Radiology Service Progress Note DATE [...] MR; Exam(s) Completed: Body: Pancreas/Biliary SIGNATURE: RT Irqa(R) PATIENT NAME: Isabel Sahni DATE: November 07, 2021 TIME: 2:39 PM documented in this encounter [facility] 11-05-2021 Miscellaneous Notes COLON ASC documented in this encounter [facility] 10-30-2021 Miscellaneous Notes Left message of same on pt's identified vm. Altaf Bean LPN ----- Message from Cecily Coelho PA-C sent at 10/30/2021 8:55 AM EDT ----- Normal mammogram. Repeat in 1 year. documented in this encounter [facility] 10-30-2021 Miscellaneous Notes October 30, 2021 PID: [id number] Isabel Sahni [address] [place] [address] Dear Ms. Sahni, We are pleased to [...] report will be kept on file at [facility] as part of your permanent medical record and are available for your continuing care. Thank you for allowing us to help in meeting your health care needs. Sincerely, Dr. Baptiste Interpreting Radiologist [facility] (Normal over 40) documented in this encounter [facility] 10-29-2021 History of Present illness Narrative Radiology Service Progress Note PATIENT [...] PERIPHERAL IV DATA: Not applicable SIGNED BY: [employer] October 29, 2021 1:46 PM documented in this encounter [facility] 10-23-2021 Miscellaneous Notes I am cancelling MRI of Liver. Only MRI Panc/Christos wo/w contrast is needed. Cecily Coelho PA-C documented in this encounter [facility] 10-22-2021 Miscellaneous Notes BP good. No changes needed. Manual Readin/86 Pulse: 74 BP Elizabeth average: 124/81 P: 74 Repeat BP Check: [...] Rosie Trejo LPN documented in this encounter [facility] 10-22-2021 History of Present illness Narrative Manual Readin/86 Pulse: 74 BP Elizabeth average: 124/81 P: 74 Repeat BP Check: [...] Rosie Trejo LPN documented in this encounter [facility] 10-16-2021 Note HNO ID: [id number] Author: Geraldine Okeefe MD Service: ? Author Type: Physician Type: Progress Notes Filed: 10/16/2021 11:10 AM Note Text: Dear Cecily I suggest obtaining the following tests: AMA panel with titer and MRI liver and pancreas with contrast You may share results with me if abnormal Thank you for your referral. Please feel free to contact me if I can be of further assistance to you Sincerely Geraldine Stearns MD [facility] 10-16-2021 Miscellaneous Notes Pt returned call & was notified of results & providers message. 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 Patricia Rasheed LPN Let patient know of below results. Then let her know that I received recommendations from gastro and I am going to put in a MRI order and an additional lab for her to do. Thanks. Cecily Coelho PA-C Left message for pt to contact office. Altaf Bean LPN Let patient know that her US shows fatty liver. i'm going to put in a e-consult to gastro to see if they have further recommendations. If she hasn't heard from us in 1 week, please ask her to contact me. Cecily Coelho PA-C documented in this encounter [facility] 10-16-2021 History of Present illness Narrative Dear Cecily I suggest obtaining the following tests: AMA panel with titer and MRI liver and pancreas with contrast You may share results with me if abnormal Thank you for your referral. Please feel free to contact me if I can be of further assistance to you Sincerely Geraldine Stearns MD documented in this encounter [facility] 10-11-2021 Miscellaneous Notes Patient returned call and given provider's message below with verbalized understanding. Transferred to pss. Patient agreeable to call Dr. Corona office to schedule appt. Left message for pt to contact office. See Cecily's message below. Referral and info has been faxed to Dr Corona's office. Altaf Bean LPN Left vm for patient to call office back Ju Rodriguez Ma Liver fraction of alk phos is elevated as is GGT. Will put in consult to gastro (dr. Corona) and set up for US of liver. Cecily Coelho PA-C documented in this encounter [facility] 10-03-2021 Miscellaneous Notes Spoke with patient. [...] continue the once weekly vitamin. Prescription sent Cecily Coelho PA-C documented in this encounter [facility] 10-01-2021 History of Present illness Narrative Chief Complaint Patient presents with: [...] diet of 1000 mg/day for under 50, 7049-2266 mg/day for 50+ - Discussed need and benefit for weight loss. BMI 36.88 kg/(m^2) - Mammogram ordered - exam recommended once yearly - Patient was counseled [id number] by myself (the billing provider) for the [...] Z23 - TDAP VACCINE AGE 7+ IM Cecily Coelho PA-C documented in this encounter [facility] 04-01-2014 History of Past i llness Narrative Problem Noted Date Resolved Date Bile leak 04/01/2014 12/30/2016 Right upper quadrant pain 02/14/20142016 documented as of this encounter (statuses as of 10/01/2021) [facility] History of Past illness Narrative* Problem Noted Date Resolved Date Bile leak 04/01/2014 12/30/2016 Right upper quadrant pain 02/14/20142016 documented as of this encounter (statuses as of 10/03/2021) [facility] History of Past illness Narrative* Problem Noted Date Resolved Date Bile leak 04/01/2014 12/30/2016 Right upper quadrant pain 02/14/20142016 documented as of this encounter (statuses as of 10/11/2021) [facility] History of Past illness Narrative* Problem Noted Date Resolved Date Bile leak 04/01/2014 12/30/2016 Right upper quadrant pain 02/14/20142016 documented as of this encounter (statuses as of 10/16/2021) [facility] History of Past illness Narrative* Problem Noted Date Resolved Date Bile leak 04/01/2014 12/30/2016 Right upper quadrant pain 02/14/20142016 documented as of this encounter (statuses as of 10/16/2021) [facility] History of Past illness Narrative* Problem Noted Date Resolved Date Bile leak 04/01/2014 12/30/2016 Right upper quadrant pain 02/14/20142016 documented as of this encounter (statuses as of 10/17/2021) [facility] History of Past illness Narrative* Problem Noted Date Resolved Date Bile leak 04/01/2014 12/30/2016 Right upper quadrant pain 02/14/20142016 documented as of this encounter (statuses as of 10/22/2021) [facility] History of Past illness Narrative* Problem Noted Date Resolved Date Bile leak 04/01/2014 12/30/2016 Right upper quadrant pain 02/14/20142016 documented as of this encounter (statuses as of 10/22/2021) [facility] History of Past illness Narrative* Problem Noted Date Resolved Date Bile leak 04/01/2014 12/30/2016 Right upper quadrant pain 02/14/20142016 documented as of this encounter (statuses as of 10/23/2021) [facility] History of Past illness Narrative* Problem Noted Date Resolved Date Bile leak 04/01/2014 12/30/2016 Right upper quadrant pain 02/14/20142016 documented as of this encounter (statuses as of 10/30/2021) [facility] History of Past illness Narrative* Problem Noted Date Resolved Date Bile leak 04/01/2014 12/30/2016 Right upper quadrant pain 02/14/20142016 documented as of this encounter (statuses as of 10/30/2021) [facility] History of Past illness Narrative* Problem Noted Date Resolved Date Bile leak 04/01/2014 12/30/2016 Right upper quadrant pain 02/14/20142016 documented as of this encounter (statuses as of 11/01/2021) [facility] of [facility] illness Narrative* Problem Noted Date Resolved Date Bile leak 04/01/2014 12/30/2016 Right upper quadrant pain 02/14/20142016 documented as of this encounter (statuses as of 11/08/2021) [facility]2014 History of Past illness Narrative* Problem Noted Date Resolved Date Bile leak 04/01/2014 12/30/2016 Right upper quadrant pain 02/14/20142016 documented as of this encounter (statuses as of 11/09/2021) [facility]2014 History of Past illness Narrative* Problem Noted Date Resolved Date Bile leak 04/01/2014 12/30/2016 Right upper quadrant pain 02/14/20142016 documented as of this encounter (statuses as of 12/06/2021) [facility] History of Past illness Narrative* Problem Noted Date Resolved Date Bile leak 04/01/2014 12/30/2016 Right upper quadrant pain 02/14/20142016 documented as of this encounter (statuses as of 12/07/2021) [facility] History of Past illness Narrative* Problem Noted Date Resolved Date Bile leak 04/01/2014 12/30/2016 Right upper quadrant pain 02/14/20142016 documented as of this encounter (statuses as of 12/20/2021) [facility] History of Past illness Narrative* Problem Noted Date Resolved Date Bile leak 04/01/2014 12/30/2016 Right upper quadrant pain 02/14/20142016 documented as of this encounter (statuses as of 12/25/2021) [facility] History of Past illness Narrative* Problem Noted Date Resolved Date Bile leak 04/01/2014 12/30/2016 Right upper quadrant pain 02/14/20142016 documented as of this encounter (statuses as of 12/25/2021) [facility] History of Past illness Narrative* Problem Noted Date Resolved Date Bile leak 04/01/2014 12/30/2016 Right upper quadrant pain 02/14/20142016 documented as of this encounter (statuses as of 12/25/2021) [facility] History of Past illness Narrative* Problem Noted Date Resolved Date Bile leak 04/01/2014 12/30/2016 Right upper quadrant pain 02/14/20142016 documented as of this encounter (statuses as of 01/03/2022) [facility] History of Past illness Narrative* Problem Noted Date Resolved Date Bile leak 04/01/2014 12/30/2016 Right upper quadrant pain 02/14/20142016 documented as of this encounter (statuses as of 01/08/2022) [facility] History of Past illness Narrative* Problem Noted Date Resolved Date Bile leak 04/01/2014 12/30/2016 Right upper quadrant pain 02/14/20142016 documented as of this encounter (statuses as of 01/10/2022) [place] [address]-19-2014 History of Past illness Narrative* Problem Noted Date Resolved Date Bile leak 04/01/2014 12/30/2016 Right upper quadrant pain 02/14/20142016 documented as of this encounter (statuses as of 01/16/2022) [facility] History of Past illness Narrative* Problem Noted Date Resolved Date Bile leak 04/01/2014 12/30/2016 Right upper quadrant pain 02/14/20142016 documented as of this encounter (statuses as of 01/30/2022) [place] [address]-19-2014 History of Past illness Narrative* Problem Noted Date Resolved Date Bile leak 04/01/2014 12/30/2016 Right upper quadrant pain 02/14/20142016 documented as of this encounter (statuses as of 03/13/2022) [facility] History of Past illness Narrative* Problem Noted Date Resolved Date Bile leak 04/01/2014 12/30/2016 Right upper quadrant pain 02/14/20142016 documented as of this encounter (statuses as of 04/09/2022) [facility] History of Past illness Narrative* Problem Noted Date Resolved Date Bile leak 04/01/2014 12/30/2016 Right upper quadrant pain 02/14/20142016 documented as of this encounter (statuses as of 04/16/2022) [facility] History of Past illness Narrative* Problem Noted Date Resolved Date Bile leak 04/01/2014 12/30/2016 Right upper quadrant pain 02/14/20142016 documented as of this encounter (statuses as of 04/29/2022) [facility] History of Past illness Narrative* Problem Noted Date Resolved Date Bile leak 04/01/2014 12/30/2016 Right upper quadrant pain 02/14/20142016 documented as of this encounter (statuses as of 05/07/2022) [address]19-2014 History of Past illness Narrative* Problem Noted Date Resolved Date Bile leak 04/01/2014 12/30/2016 Right upper quadrant pain 02/14/20142016 documented as of this encounter (statuses as of 05/07/2022) [facility] History of Past illness Narrative* Problem Noted Date Resolved Date Bile leak 04/01/2014 12/30/2016 Right upper quadrant pain 02/14/20142016 documented as of this encounter (statuses as of 05/08/2022) [facility] History of Past illness Narrative* Problem Noted Date Resolved Date Bile leak 04/01/2014 12/30/2016 Right upper quadrant pain 02/14/20142016 documented as of this encounter (statuses as of 05/14/2022) [facility] History of Past illness Narrative* Problem Noted Date Resolved Date Bile leak 04/01/2014 12/30/2016 Right upper quadrant pain 02/14/20142016 documented as of this encounter (statuses as of 05/20/2022) [facility] History of Past illness Narrative* Problem Noted Date Resolved Date Bile leak 04/01/2014 12/30/2016 Right upper quadrant pain 02/14/20142016 documented as of this encounter (statuses as of 06/27/2022) [facility] History of Past illness Narrative* Problem Noted Date Resolved Date Bile leak 04/01/2014 12/30/2016 Right upper quadrant pain 02/14/20142016 documented as of this encounter (statuses as of 08/06/2022) [facility] History of Past illness Narrative* Problem Noted Date Resolved Date Bile leak 04/01/2014 12/30/2016 Right upper quadrant pain 02/14/20142016 documented as of this encounter (statuses as of 10/08/2022) [facility] History of Past illness Narrative* Problem Noted Date Resolved Date Bile leak 04/01/2014 12/30/2016 Right upper quadrant pain 02/14/20142016 documented as of this encounter (statuses as of 10/14/2022) [facility] History of Past illness Narrative* Problem Noted Date Resolved Date Bile leak 04/01/2014 12/30/2016 Right upper quadrant pain 02/14/20142016 documented as of this encounter (statuses as of 11/05/2022) [facility] History of Past illness Narrative* Problem Noted Date Resolved Date Bile leak 04/01/2014 12/30/2016 Right upper quadrant pain 02/14/20142016 documented as of this encounter (statuses as of 12/11/2022) [facility] History of Past illness Narrative* Problem Noted Date Resolved Date Bile leak 04/01/2014 12/30/2016 Right upper quadrant pain 02/14/20142016 documented as of this encounter (statuses as of 12/12/2022) [facility] History of Past illness Narrative* Problem Noted Date Diagnosed Date Resolved Date Bile leak 04/01/2014 12/30/2016 Right upper quadrant pain 02/14/2014 documented as of this encounter (statuses as of 03/21/2023) [facility] History of Past illness Narrative* Problem Noted Date Diagnosed Date Resolved Date Bile leak 04/01/2014 12/30/2016 Right upper quadrant pain 02/14/2014 documented as of this encounter (statuses as of 04/16/2023) [facility] History of Past illness Narrative* Problem Noted Date Diagnosed Date Resolved Date Bile leak 04/01/2014 12/30/2016 Right upper quadrant pain 02/14/2014 documented as of this encounter (statuses as of 05/18/2023) [facility] History of Past illness Narrative* Problem Noted Date Diagnosed Date Resolved Date Bile leak 04/01/2014 12/30/2016 Right upper quadrant pain 02/14/2014 documented as of this encounter (statuses as of 08/19/2023) [facility] History of Past illness Narrative* Problem Noted Date Diagnosed Date Resolved Date Bile leak 04/01/2014 12/30/2016 Right upper quadrant pain 02/14/2014 documented as of this encounter (statuses as of 08/25/2023) [facility] History of Past illness Narrative* Problem Noted Date Diagnosed Date Resolved Date Bile leak 04/01/2014 12/30/2016 Right upper quadrant pain 02/14/2014 documented as of this encounter (statuses as of 08/26/2023) [facility] History of Past illness Narrative* Problem Noted Date Diagnosed Date Resolved Date Bile leak 04/01/2014 12/30/2016 Right upper quadrant pain 02/14/2014 documented as of this encounter (statuses as of 08/26/2023) [facility] History of Past illness Narrative* Problem Noted Date Diagnosed Date Resolved Date Bile leak 04/01/2014 12/30/2016 Right upper quadrant pain 02/14/2014 documented as of this encounter (statuses as of 10/28/2023) [facility] Diagnosis Well adult exam- Primary Routine [...] single bacterial disease [facility] Diagnosis Elevated alkaline phosphatase level- Primary Other nonspecific abnormal serum enzyme levels Elevated fasting glucose Impaired fasting glucose Elevated vitamin B12 level [facility] Elevated alkaline phosphatase level- Primary Other nonspecific abnormal serum enzyme levels [facility] Elevated alkaline phosphatase level Other nonspecific abnormal serum enzyme levels [facility] Diagnosis Abnormal alkaline phosphatase test Other nonspecific abnormal serum enzyme levels [facility] Diagnosis Elevated alkaline phosphatase level- Primary Other nonspecific abnormal serum enzyme levels Abnormal results of liver function studies Nonspecific abnormal results of liver function study Elevated serum GGT level Other nonspecific abnormal serum enzyme levels Fatty (change of) liver, not elsewhere classified [facility] Diagnosis Essential hypertension- Primary Unspecified essential hypertension [facility]* Diagnosis Screening mammogram for breast cancer documented in this encounter [facility] note* Diagnosis Abnormal results of liver function studies Nonspecific abnormal results of liver function study documented in this encounter [facility] note* Diagnosis Pancreatic cyst- Primary Cyst and pseudocyst of pancreas [facility] Diagnosis URI, acute- Primary Acute upper respiratory infections of unspecified site documented in this encounter [facility] note* Diagnosis Screening for colon cancer Special screening for malignant neoplasms, colon History of colonic polyps Personal history of colonic polyps documented in this encounter [facility] note* Diagnosis Hypertension, essential- Primary Unspecified essential hypertension Pancreatic cyst Cyst and pseudocyst of pancreas documented in this encounter [facility] note* Diagnosis Essential hypertension- Primary Unspecified essential hypertension Leg cramping Cramp of limb Vitamin D deficiency Unspecified vitamin D deficiency Elevated vitamin B12 level Screening for colon cancer Special screening for malignant neoplasms, colon Mixed hyperlipidemia documented in this encounter [facility] note* Diagnosis Hypokalemia- Primary Hypopotassemia documented in this encounter [facility] note* Diagnosis Screening for colon cancer- Primary Special screening for malignant neoplasms, colon History of colonic polyps Personal history of colonic polyps documented in this encounter [facility] note* Diagnosis Tubular adenoma polyp of rectum- Primary Benign neoplasm of rectum and anal canal Screening for colon cancer Special screening for malignant neoplasms, colon History of colonic polyps Personal history of colonic polyps documented in this encounter [facility] note* Diagnosis Essential hypertension- Primary Unspecified essential [...] Cramp of limb documented in this encounter [facility] note* Diagnosis Need for vaccination- Primary Need for prophylactic vaccination and inoculation against unspecified single disease Need for influenza vaccination Need for prophylactic vaccination and inoculation against influenza [facility]* Diagnosis Essential hypertension- Primary Unspecified essential hypertension Chronic midline low back pain without sciatica [facility] Diagnosis Carotid stenosis, bilateral Occlusion and stenosis of carotid artery without mention of cerebral infarction [facility] Diagnosis History of colonic polyps- Primary Personal history of colonic polyps Tubular adenoma Benign neoplasm of unspecified site [facility] Diagnosis Pain in both knees, unspecified chronicity- Primary [facility] Diagnosis Well adult exam- Primary Routine [...] single bacterial disease [facility] Diagnosis Bacterial sinusitis- Primary Unspecified sinusitis (chronic) [facility] Diagnosis Acute cough- Primary [facility] Diagnosis Hypokalemia- Primary Hypopotassemia [facility] Diagnosis Encounter for screening mammogram for breast cancer [facility] Diagnosis GERD without esophagitis Esophageal reflux Essential hypertension Unspecified essential hypertension [facility] Diagnosis Bursitis of right shoulder- Primary Disorders of bursae and tendons in shoulder region, unspecified Acute pain of right shoulder Cervicalgia [facility] Diagnosis Cervicalgia [facility] Diagnosis Acute pain of right shoulder- Primary Cervicalgia DDD (degenerative disc disease), cervical Degeneration of cervical intervertebral disc [facility] Diagnosis Acute pain of right shoulder- Primary Cervicalgia Bursitis of right shoulder Disorders of bursae and tendons in shoulder region, unspecified [facility] Diagnosis Encounter for Medicare annual wellness exam- Primary Routine general medical examination at a health care facility Essential hypertension Unspecified essential hypertension Mixed hyperlipidemia GERD without esophagitis Esophageal reflux Elevated fasting glucose Impaired fasting glucose Vitamin D deficiency Unspecified vitamin D deficiency Low serum vitamin B12 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, vagina, 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 Obesity, Class I, BMI 30-34.9 Obesity, unspecified Encounter for screening mammogram for breast cancer Advance directive discussed with patient Other specified counseling Medication management Encounter for long-term (current) use of other medications documented [facility] Diagnosis Uterovaginal prolapse- Primary Uterovaginal prolapse, unspecified Cystocele, midline documented in this encounter [facility] note* Diagnosis Uterovaginal prolapse- Primary Uterovaginal prolapse, unspecified documented in this encounter [facility] note* Diagnosis Mixed hyperlipidemia Pain in both knees, unspecified chronicity [facility]* Diagnosis Encounter for screening mammogram for breast cancer documented in this encounter [facility] note* Diagnosis Essential hypertension Unspecified essential hypertension Mixed hyperlipidemia GERD without esophagitis Esophageal reflux documented in this encounter [facility] note* Diagnosis Acute pain of right shoulder documented in this encounter [facility] note* Diagnosis Chronic midline low back pain without sciatica documented in this encounter [facility] note* Diagnosis Pain in both knees, unspecified chronicity documented in this encounter [facility] for referral (narrative)* Diagnostic Procedure Only (Routine) - Authorized Specialty Diagnoses / Procedures Referred By Yovany childs Referred To Contact [facility] Diagnoses Screening mammogram for breast cancer Procedures SRINATH SCREENING W JENNIFER SCREENING DIGITAL BREAST TOMOSYNTHESIS BI SCREENING MAMMOGRAPHY BI 2-VIEW BREAST INC CAD Cecily Coelho PA-C [address] [place] [address] [facility] [address] [place] [address] Referral ID Status Reason Start Date Expiration Date Visits Requested Visits Authorized [id number] Authorized Auto-Generat ed Referral 10/01/2021 10/31/2022 1 1 * Consult, Test, Treat (Routine) - Authorized Specialty Diagnoses / Procedures Referred By Yovany childs Referred To Contact General Surgery Diagnoses Tubular adenoma polyp of rectum Procedures CONSULT TO GENERAL SURGERY OFFICE/OUTPATIENT [facility] 60-74 MINUTES Cecily Coelho PA-C [address] [place] [address] Referral ID Status Reason Start Date Expiration Date Visits Requested Visits Authorized [id number] Authorized PCP Requested Referral 10/01/2021 10/01/2022 1 1 [facility] for referral (narrative)* Diagnostic Procedure Only (Routine) - Authorized Specialty Diagnoses / Procedures Referred By Contac t Referred To Contact [facility] Diagnoses Elevated alkaline phosphatase level Procedures US ABD RT UPPER QUADRANT US ABDOMINAL REAL TIME W/IMAGE LIMITED Cecily Coelho PA-C [address] [place] [address] [facility] Referral ID Status Reason Start Date Expiration Date Visits Requested Visits Authorized [id number] Authorized Auto-Generat ed Referral 10/10/2021 11/09/2022 1 1 * Consult, Test, Treat (Routine) - Authorized Specialty Diagnoses / Procedures Referred By Contac t Referred To Contact Gastroenterology Diagnoses Elevated alkaline phosphatase level Procedures CONSULT TO GASTROENTEROLOGY OFFICE/OUTPATIENT NEW HIGH MDM 60-74 MINUTES Cecily Coelho PA-C [address] [place] [address] Referral ID Status Reason Start Date Expiration Date Visits Requested Visits Authorized [id number] Authorized PCP Requested Referral 10/10/2021 10/10/2022 1 1 [facility] for referral (narrative)* Diagnostic Procedure Only (Routine) - Closed Specialty Diagnoses / Procedures Referred By Contac t Referred To Contact [facility] IM[facility] Diagnoses Elevated alkaline phosphatase level Procedures US ABD RT UPPER QUADRANT US ABDOMINAL REAL TIME W/IMAGE LIMITED Cecily Coelho PA-C [address] [place] [address] [facility] Referral ID Status Reason Start Date Expiration Date V isits Requested Visits Authorized [id number] Closed Auto-Generate d Referral 10/10/2021 11/09/2022 1 1 [facility] for referral (narrative)* Diagnostic Procedure Only (Routine) - Closed Specialty Diagnoses / Procedures Referred By Yovany childs Referred To Contact [facility] Diagnoses Screening mammogram for breast cancer Procedures SRINATH SCREENING W JENNIFER SCREENING DIGITAL BREAST TOMOSYNTHESIS BI SCREENING MAMMOGRAPHY BI 2-VIEW BREAST INC CAD Cecily Coelho PA-C [address] [place] [address] [facility] [address] [place] [address] Referral ID Status Reason Start Date Expiration Date V isits Requested Visits Authorized [id number] Closed Auto-Generate d Referral 10/01/2021 10/31/2022 1 1 [facility] for referral (narrative)* Outpatient Procedure (Routine) - Closed Specialty Diagnoses / Procedures Referred By Yovany t Referred To Contact [facility] Diagnoses Screening for colon cancer History of colonic polyps Procedures COLONOSCOPY SCREENING COLONOSCOPY FLX DX W/COLLJ SPEC WHEN PFFlorencia Baron PA-C [address] [place] [address] [facility] [address] [place] [id number] Referral ID Status Reason Start Date Expiration Date V isits Requested Visits Authorized [id number] Closed Auto-Generate d Referral 11/06/2021 11/05/2022 1 1 [facility] for referral (narrative)* Outpatient Procedure (Routine) - Closed Specialty Diagnoses / Procedures Referred By Yovany t Referred To Contact [facility] Diagnoses Screening for colon cancer History of colonic polyps Procedures COLONOSCOPY SCREENING COLONOSCOPY FLX DX W/COLLJ SPEC WHEN PFFlorencia Baron PA-C [address] [place] [address] [facility] [address] [place] [address] Referral ID Status Reason Start Date Expiration Date V isits Requested Visits Authorized [id number] Closed Auto-Generate d Referral 11/06/2021 11/05/2022 1 1 T [facility] for referral (narrative)* Outpatient Procedure (Routine) - Closed Specialty Diagnoses / Procedures Referred By Contac t Referred To Contact [facility] Diagnoses Screening for colon cancer History of colonic polyps Procedures COLONOSCOPY SCREENING COLONOSCOPY FLX DX W/COLLJ SPEC WHEN P[facility] David Palmer MD [address] [place] [address] [facility] [address] [place] [id number] Referral ID Status Reason Start Date Expiration Date V isits Requested Visits Authorized [id number] Closed Auto-Generate d Referral 01/11/2022 01/11/2023 1 1 T [facility] for referral (narrative)* Outpatient Procedure (Routine) - Authorized Specialty Diagnoses / Procedures Referred By Contac t Referred To Contact [facility] Diagnoses Carotid stenosis, bilateral Procedures US CAROTID ARTERIES [facility] DUPLEX SCAN EXTRACRANIAL ART COMPL BI STUDY Franklin Arias MD [address] [place] [address] [facility] [address] [place] [id number] Referral ID Status Reason Start Date Expiration Date Visits Requested Visits Authorized [id number] Authorized Auto-Generat ed Referral 04/09/2022 04/09/2023 1 1 [facility] for referral (narrative)* Diagnostic Procedure Only (Routine) - Closed Specialty Diagnoses / Procedures Referred By Contac t Referred To Contact XR IMAGING Diagnoses Chronic midline low back pain without sciatica Procedures XR LUMBAR GENERAL 3V AP/LAT/L5-S1 RADEX SPINE LUMBOSACRAL 2/3 VIEWS Cecily Coelho PA-C [address] [place] [address] Xr Imaging Referral ID Status Reason Start Date Expiration Date V isits Requested Visits Authorized [id number] Closed Auto-Generate d Referral 05/07/2022 06/06/2023 1 1 T [facility] for referral (narrative)* Diagnostic Procedure Only (Urgent) - Closed Specialty Diagnoses / Procedures Referred By Contac t Referred To Contact XR IMAGING Diagnoses Pain in both knees, unspecified chronicity Procedures XR KNEE GENERAL 4V AP BOTH/PA BOTH/LAT/MERC BILATERAL RADIOLOGIC EXAM KNEE COMPLETE 4/MORE VIEWS Hla Desai MD [address] [place] [address] Xr Imaging Referral ID Status Reason Start Date Expiration Date V isits Requested Visits Authorized [id number] Closed Auto-Generate d Referral 05/20/2022 06/19/2023 1 1 [facility] for referral (narrative)* Diagnostic Procedure Only (Routine) - Authorized Specialty Diagnoses / Procedures Referred By Contac t Referred To Contact BR IMAGING Diagnoses Encounter for screening mammogram for breast cancer Procedures SRINATH SCREENING SCREENING MAMMOGRAPHY BI 2-VIEW BREAST INC Cecily June PA-C [address] [place] [address] Br Imaging [address] [facility] [place] [address] Referral ID Status Reason Start Date Expiration Date Visits Requested Visits Authorized [id number] Authorized Auto-Generat ed Referral 10/08/2022 11/07/2023 1 1 [facility] for referral (narrative)* Diagnostic Procedure Only (Routine) - Closed Specialty Diagnoses / Procedures Referred By Contac t Referred To Contact BR IMAGING Diagnoses Encounter for screening mammogram for breast cancer Procedures SRINATH SCREENING SCREENING MAMMOGRAPHY BI 2-VIEW BREAST INC Cecily June PA-C [address] [place] [address] Br Imaging [address] [place] [address] Referral ID Status Reason Start Date Expiration Date V isits Requested Visits Authorized [id number] Closed Auto-Generate d Referral 10/08/2022 11/07/2023 1 1 [facility] for referral (narrative)* Diagnostic Procedure Only (Routine) - Closed Specialty Diagnoses / Procedures Referred By Contac t Referred To Contact XR IMAGING Diagnoses Cervicalgia Procedures XR CERV OTHER 4V AP/LAT/OBL RADEX SPINE CERVICAL 4 OR 5 VIEWS VeShantal looney, PA-C [address] [place] [address] [place] [address] Referral ID Status Reason Start Date Expiration Date V isits Requested Visits Authorized [id number] Closed Auto-Generate d Referral 08/25/2023 09/23/2024 1 1 [facility] for referral (narrative)* Diagnostic Procedure Only (Routine) - Closed Specialty Diagnoses / Procedures Referred By Contac t Referred To Contact XR IMAGING Diagnoses Cervicalgia Procedures XR CERV OTHER 4V AP/LAT/OBL RADEX SPINE CERVICAL 4 OR 5 VIEWS VeShantal looney PA-C [address] [place] [address] [place] [address] Referral ID Status Reason Start Date Expiration Date V isits Requested Visits Authorized [id number] Closed Auto-Generate d Referral 08/25/2023 09/23/2024 1 1 [facility] for referral (narrative)* Diagnostic Procedure Only (Routine) - Closed Specialty Diagnoses / Procedures Referred By Contac t Referred To Contact XR IMAGING Diagnoses Acute pain of right shoulder Procedures XR SHOULDER [id number] AP/TRUE AP RIGHT RADEX SHOULDER COMPLETE MINIMUM 2 VIEWS Juany Lawrence, THREAD PULLING MACHINE ATTENDANT.[facility] [address] [place] [address] [place] [address] Referral ID Status Reason Start Date Expiration Date V isits Requested Visits Authorized [id number] Closed Auto-Generate d Referral 06/19/2023 07/18/2024 1 1 [facility] for referral (narrative)* Diagnostic Procedure Only (Routine) - Closed Specialty Diagnoses / Procedures Referred By Contac t Referred To Contact XR IMAGING Diagnoses Chronic midline low back pain without sciatica Procedures XR LUMBAR GENERAL 3V AP/LAT/L5-S1 RADEX SPINE LUMBOSACRAL 2/3 VIEWS Cecily Coelho PA-C [address] [phone] [place] [address] Referral ID Status Reason Start Date Expiration Date V isits Requested Visits Authorized [id number] Closed Auto-Generate d Referral 05/07/2022 06/06/2023 1 1 [facility] for referral (narrative)* Diagnostic Procedure Only (Urgent) - Closed Specialty Diagnoses / Procedures Referred By Contac t Referred To Contact XR IMAGING Diagnoses Pain in both knees, unspecified chronicity Procedures XR KNEE GENERAL 4V AP BOTH/PA BOTH/LAT/MERC BILATERAL RADIOLOGIC EXAM KNEE COMPLETE 4/MORE VIEWS Hal Desai MD [address] [place] [address] [place] [address] Referral ID Status Reason Start Date Expiration Date V isits Requested Visits Authorized [id number] Closed Auto-Generate d Referral 05/20/2022 06/19/2023 1 1 [facility] for visit Narrative* Diagnostic Procedure Only (Routine) - Closed Specialty Diagnoses / Procedures Referred By Contac t Referred To Contact US IMAGING Diagnoses Elevated alkaline phosphatase level Procedures US ABD RT UPPER QUADRANT US ABDOMINAL REAL TIME W/IMAGE LIMITED Cecily Coelho PA-C [address] [place] [address] Us Imaging Referral ID Status Reason Start Date Expiration Date V isits Requested Visits Authorized [id number] Closed Auto-Generate d Referral 10/10/2021 11/09/2022 1 1 [facility] for visit Narrative* Diagnostic Procedure Only (Routine) - Closed Specialty Diagnoses / Procedures Referred By Contac t Referred To Contact BR IMAGING Diagnoses Screening mammogram for breast cancer Procedures SRINATH SCREENING W JENNIFER SCREENING DIGITAL BREAST TOMOSYNTHESIS BI SCREENING MAMMOGRAPHY BI 2-VIEW BREAST INC CAD Cecily Coelho PA-C [address] [place] [address] Br Imaging [address] [facility] [place] [address] Referral ID Status Reason Start Date Expiration Date V isits Requested Visits Authorized [id number] Closed Auto-Generate d Referral 10/01/2021 10/31/2022 1 1 [facility] for visit Narrative* Outpatient Procedure (Routine) - Closed Specialty Diagnoses / Procedures Referred By Contac t Referred To Contact [facility] Diagnoses Screening for colon cancer History of colonic polyps Procedures COLONOSCOPY SCREENING COLONOSCOPY FLX DX W/COLLJ SPEC WHEN PFRMD Florencia Lew PA-C [address] [place] [address] [facility] [address] [place] [address] Referral ID Status Reason Start Date Expiration Date V isits Requested Visits Authorized [id number] Closed Auto-Generate d Referral 11/06/2021 11/05/2022 1 1 [facility] for visit Narrative* Outpatient Procedure (Routine) - Closed Specialty Diagnoses / Procedures Referred By Contac t Referred To Contact [facility] Diagnoses Screening for colon cancer History of colonic polyps Procedures COLONOSCOPY SCREENING COLONOSCOPY FLX DX W/COLLJ SPEC WHEN PFRMD David Palmer MD [address] [place] [address] [facility] [address] [place] [address] Referral ID Status Reason Start Date Expiration Date V isits Requested Visits Authorized [id number] Closed Auto-Generate d Referral 01/11/2022 01/11/2023 1 1 [facility] for visit Narrative* Diagnostic Procedure Only (Routine) - Closed Specialty Diagnoses / Procedures Referred By Contac t Referred To Contact BR IMAGING Diagnoses Encounter for screening mammogram for breast cancer Procedures SRINATH SCREENING SCREENING MAMMOGRAPHY BI 2-VIEW BREAST INC CAD Cecily Coelho PA-C [address] [place] [address] Br Imaging [address] [place] [phone] Referral ID Status Reason Start Date Expiration Date V isits Requested Visits Authorized [id number] Closed Auto-Generate d Referral 10/08/2022 11/07/2023 1 1 [facility] for visit Narrative* Diagnostic Procedure Only (Routine) - Closed Specialty Diagnoses / Procedures Referred By Contac t Referred To Contact XR IMAGING Diagnoses Cervicalgia Procedures XR CERV OTHER 4V AP/LAT/OBL RADEX SPINE CERVICAL 4 OR 5 VIEWS Shantal Rhodes PA-C [address] [place] [address] [place] [address] Referral ID Status Reason Start Date Expiration Date V isits Requested Visits Authorized [id number] Closed Auto-Generate d Referral 08/25/2023 09/23/2024 1 1 [facility] for visit Narrative* Diagnostic Procedure Only (Routine) - Closed Specialty Diagnoses / Procedures Referred By Contac t Referred To Contact BR IMAGING Diagnoses Encounter for screening mammogram for breast cancer Procedures SRINATH SCREENING SCREENING MAMMOGRAPHY BI 2-VIEW BREAST INC CAD Frnaklin Arias MD [address] [place] [address] Br Imaging [address] [place] [address] Referral ID Status Reason Start Date Expiration Date V isits Requested Visits Authorized [id number] Closed Auto-Generate d Referral 11/04/2023 12/02/2024 1 1 [facility] for visit Narrative* Diagnostic Procedure Only (Routine) - Closed Specialty Diagnoses / Procedures Referred By Contac t Referred To Contact XR IMAGING Diagnoses Acute pain of right shoulder Procedures XR SHOULDER [id number] AP/TRUE AP RIGHT RADEX SHOULDER COMPLETE MINIMUM 2 VIEWS Juany Lawrence, RENETTA.DIVORCE MEDIATOR [address] [id number] [place] [address] Referral ID Status Reason Start Date Expiration Date V isits Requested Visits Authorized [id number] Closed Auto-Generate d Referral 06/19/2023 07/18/2024 1 1 [facility] for visit Narrative* Diagnostic Procedure Only (Routine) - Closed Specialty Diagnoses / Procedures Referred By Contac t Referred To Contact XR IMAGING Diagnoses Chronic midline low back pain without sciatica Procedures XR LUMBAR GENERAL 3V AP/LAT/L5-S1 RADEX SPINE LUMBOSACRAL 2/3 VIEWS Cecily Coelho PA-C [address] [place] [address] [place] [address] Referral ID Status Reason Start Date Expiration Date V isits Requested Visits Authorized [id number] Closed Auto-Generate d Referral 05/07/2022 06/06/2023 1 1 [facility] for visit Narrative* Diagnostic Procedure Only (Routine) - Closed Specialty Diagnoses / Procedures Referred By Contac t Referred To Contact XR IMAGING Diagnoses Pain in both knees, unspecified chronicity Procedures XR KNEE GENERAL 4V AP BOTH/PA BOTH/LAT/MERC RIGHT RADIOLOGIC EXAM KNEE COMPLETE 4/MORE VIEWS Hal Desai MD [address] [phone] [place] [address] Referral ID Status Reason Start Date Expiration Date V isits Requested Visits Authorized [id number] Closed Auto-Generate d Referral 05/20/2022 06/19/2023 1 1 [facility] Advance Directives Documents on File Type Date Recorded Patient Certified Family Mediator Expl anation Advance Directive(s) 01/27/2017 10:17 AM Advance Directive(s) 09/14/2015 9:30 AM Advance Directive(s) 09/08/2015 12:19 PM Advance Directive(s) 09/02/2015 10:06 AM Documents on File Type Date Recorded Patient Certified Family Mediator Expl anation Advance Directive(s) 01/27/2017 10:17 AM Advance Directive(s) 09/14/2015 9:30 AM Advance Directive(s) 09/08/2015 12:19 PM Advance Directive(s) 09/02/2015 10:06 AM Documents on File Type Date Recorded Patient Certified Family Mediator Expl anation Advance Directive(s) 11/13/2021 2:05 PM Advance Directive(s) 01/27/2017 10:17 AM Advance Directive(s) 09/14/2015 9:30 AM Advance Directive(s) 09/08/2015 12:19 PM Advance Directive(s) 09/02/2015 10:06 AM Documents on File Type Date Recorded Patient Certified Family Mediator Expl anation Advance Directive(s) 12/24/2021 8:40 AM Advance Directive(s) 11/13/2021 2:05 PM Advance Directive(s) 01/27/2017 10:17 AM Advance Directive(s) 09/14/2015 9:30 AM Advance Directive(s) 09/08/2015 12:19 PM Advance Directive(s) 09/02/2015 10:06 AM Documents on File Type Date Recorded Patient Certified Family Mediator Expl anation Advance Directive(s) 12/24/2021 8:40 AM Advance Directive(s) 11/13/2021 2:05 PM Advance Directive(s) 01/27/2017 10:17 AM Advance Directive(s) 09/14/2015 9:30 AM Advance Directive(s) 09/08/2015 12:19 PM Advance Directive(s) 09/02/2015 10:06 AM Documents on File Type Date Recorded Patient Certified Family Mediator Expl anation Advance Directive(s) 01/29/2022 7:05 PM Advance Directive(s) 12/24/2021 8:40 AM Advance Directive(s) 11/13/2021 2:05 PM Advance Directive(s) 01/27/2017 10:17 AM Advance Directive(s) 09/14/2015 9:30 AM Advance Directive(s) 09/08/2015 12:19 PM Advance Directive(s) 09/02/2015 10:06 AM Reason for Referral Specialty Diagnoses / Procedures Referred By Yovany t Referred To Contact MR IMAGING Diagnoses Fatty (change of) liver, not elsewhere classified Procedures MRI LIVER WO/W IVCON MRI ABDOMEN W/O & W/CONTRAST MATERIAL Cecily Coelho PA-C [address] [place] [address] Mr Imaging Referral ID Status Reason Start Date Expiration Date Visits Requested Visits Authorized [id number] Authorized Auto-Generat ed Referral 10/16/2021 12/15/2021 1 1 Specialty Diagnoses / Procedures Referred By Contac t Referred To Contact MR IMAGING Diagnoses Abnormal results of liver function studies Procedures MRI PANC/CHRISTOS WO/W IVCON MRI ABDOMEN W/O & W/CONTRAST MATERIAL Cecily Coelho PA-C [address] [place] [address] Mr Imaging Referral ID Status Reason Start Date Expiration Date V isits Requested Visits Authorized [id number] Closed Auto-Generate d Referral 10/16/2021 11/15/2022 1 1 Specialty Diagnoses / Procedures Referred By Contac t Referred To Contact Gastroenterology Diagnoses Pancreatic cyst Procedures CONSULT TO GASTROENTEROLOGY OFFICE/OUTPATIENT [facility] 60-74 MINUTES Cecily Coelho PA-C [address] [place] [address] Referral ID Status Reason Start Date Expiration Date Visits Requested Visits Authorized [id number] Authorized PCP Requested Referral 11/08/2021 11/08/2022 1 1 Specialty Diagnoses / Procedures Referred By Contac t Referred To Contact General Surgery Diagnoses Screening for colon cancer Procedures CONSULT TO GENERAL SURGERY OFFICE/OUTPATIENT [facility] 60-74 MINUTES Cecily Coelho PA-C [address] [place] [address] Referral ID Status Reason Start Date Expiration Date Visits Requested Visits Authorized [id number] Authorized PCP Requested Referral 01/08/2022 01/08/2023 1 1 Specialty Diagnoses / Procedures Referred By Contac t Referred To Contact Cecily Coelho PA-C [address] [place] [address] Referral ID Status Reason Start Date Expiration Date Visits Re quested Visits Authorized [id number] Closed 1 1 Specialty Diagnoses / Procedures Referred By Contac t Referred To Contact [facility] Diagnoses Acute pain of right shoulder Cervicalgia DDD (degenerative disc disease), cervical Procedures CONSULT TO PHYSICAL THERAPY PHYSICAL THERAPY EVALUATION HIGH COMPLEX 45 MINS Shantal Rhodes PA-C [address] [place] [address] [facility] [address] [place] [address] Referral ID Status Reason Start Date Expiration Date Visits Requested Visits Authorized [id number] Pending Review Auto-Generat ed Referral 08/26/2023 08/25/2024 1 1 Specialty Diagnoses / Procedures Referred By Contac t Referred To Contact Diagnoses Vaginal anomaly Procedures CONSULT TO LYE BATH OPERATOR OFFICE/OUTPATIENT [facility] 60 MINUTES Franklin Arias MD [address] [place] [address] Referral ID Status Reason Start Date Expiration Date Visits Requested Visits Authorized [id number] Authorized PCP Requested Referral Auto-Generate d Referral 11/04/2023 11/03/2024 1 1 Specialty Diagnoses / Procedures Referred By Contac t Referred To Contact BR IMAGING Diagnoses Encounter for screening mammogram for breast cancer Procedures SRINATH SCREENING SCREENING MAMMOGRAPHY BI 2-VIEW BREAST INC CAD Franklin Arias MD [address] [place] [address] Br Imaging [address] [place] [address] Referral ID Status Reason Start Date Expiration Date Visits Requested Visits Authorized [id number] Authorized Auto-Generat ed Referral 11/04/2023 12/02/2024 1 1 Specialty Diagnoses / Procedures Referred By Contac t Referred To Contact Diagnoses Uterovaginal prolapse Procedures CONSULT TO URO GYNECOLOGY OFFICE/OUTPATIENT [facility] 60 MINUTES Gill Hoover APRN.DIVORCE MEDIATOR [address] [place] [address] Referral ID Status Reason Start Date Expiration Date Visits Requested Visits Authorized [id number] Authorized PCP Requested Referral Auto-Generate d Referral 11/10/2023 11/09/2024 1 1 Summary Purpose Family History No [...] Given 12/24/2021 10:15 AM EDT 50 mcg Given 12/24/2021 10:08 AM EDT 50 mcg lactated ringers iv infusion 30 mL/hr, INTRAVENOUS, CONTINUOUS, Starting on Fri12/24/21 at 0900, Until Fri12/24/21 at 1033, Preprocedure New Bag/Syringe/Bottle 12/24/2021 9:08 AM EDT 30 mL/hr 30 mL/hr Hand, Right midazolam (PF) 1-5 mg injection (VERSED) 1-5 mg, INTRAVENOUS, DIRECTED, Starting on Fri12/24/21 at 1030, Until Fri12/24/21 at 1429, DOSING DIRECTED BY PHYSICIAN FOR PROCEDURAL SEDATION ONLY, Intraprocedure Given 12/24/2021 10:14 AM EDT 2 mg Given 12/24/2021 10:12 AM EDT 2 mg Given 12/24/2021 10:08 AM EDT 3 mg Inactive Administered Medications - up to 3 [...] LIP 03/12/2022 11:04 AM EDT 50 mcg Given by LIP 03/12/2022 11:02 AM EDT 50 mcg midazolam (PF) 1-5 mg injection (VERSED) 1-5 mg, INTRAVENOUS, DIRECTED, Starting on Fri03/12/22 at 1130, Until Fri03/12/22 at 1529, DOSING DIRECTED BY PHYSICIAN FOR PROCEDURAL SEDATION ONLY, Intraprocedure Given 03/12/2022 11:15 AM EDT 1 mg Given 03/12/2022 11:11 AM EDT 2 mg Given by LIP 03/12/2022 11:04 AM EDT 2 mg ringer's 500 mL iv bolus 500 mL, INTRAVENOUS, at 999 mL/hr, Administer over 30 Minutes, ONCE, 1 dose, On Fri03/12/22 at 1000 Restarted 03/12/2022 11:35 AM EDT 9 99 mL/hr New Bag/Syringe/Bottle 03/12/2022 10:10 AM EDT 500 mL 999 mL/hr Additional Source Comments Source Comments (unrecognize d section and content) In the event this informatio n is protected by the Federal Confidentiality of Alcohol and Drug Abuse Patient Records regulations: The Federal rules restrict any use of the information to criminally investigate or prosecute any alcohol or drug abuse patient.[facility] the event this information is protected by the Federal Confidentiality of Alcohol and Drug Abuse Patient Records regulations: The Federal rules restrict any use of the information to criminally investigate or prosecute any alcohol or drug abuse patient.[facility] the event this information is protected by the Federal Confidentiality of Alcohol and Drug Abuse Patient Records regulations: The Federal rules restrict any use of the information to criminally investigate or prosecute any alcohol or drug abuse patient.[facility] the event this information is protected by the Federal Confidentiality of Alcohol and Drug Abuse Patient Records regulations: The Federal rules restrict any use of the information to criminally investigate or prosecute any alcohol or drug abuse patient.[facility] the event this information is protected by the Federal Confidentiality of Alcohol and Drug Abuse Patient Records regulations: The Federal rules restrict any use of the information to criminally investigate or prosecute any alcohol or drug abuse patient.[facility] the event this information is protected by the Federal Confidentiality of Alcohol and Drug Abuse Patient Records regulations: The Federal rules restrict any use of the information to criminally investigate or prosecute any alcohol or drug abuse patient.[facility] the event this information is protected by the Federal Confidentiality of Alcohol and Drug Abuse Patient Records regulations: The Federal rules restrict any use of the information to criminally investigate or prosecute any alcohol or drug abuse patient.[facility] the event this information is protected by the Federal Confidentiality of Alcohol and Drug Abuse Patient Records regulations: The Federal rules restrict any use of the information to criminally investigate or prosecute any alcohol or drug abuse patient.[facility] the event this information is protected by the Federal Confidentiality of Alcohol and Drug Abuse Patient Records regulations: The Federal rules restrict any use of the information to criminally investigate or prosecute any alcohol or drug abuse patient.[facility] the event this information is protected by the Federal Confidentiality of Alcohol and Drug Abuse Patient Records regulations: The Federal rules restrict any use of the information to criminally investigate or prosecute any alcohol or drug abuse patient.[facility] the event this information is protected by the Federal Confidentiality of Alcohol and Drug Abuse Patient Records regulations: The Federal rules restrict any use of the information to criminally investigate or prosecute any alcohol or drug abuse patient.[facility] the event this information is protected by the Federal Confidentiality of Alcohol and Drug Abuse Patient Records regulations: The Federal rules restrict any use of the information to criminally investigate or prosecute any alcohol or drug abuse patient.[facility] the event this information is protected by the Federal Confidentiality of Alcohol and Drug Abuse Patient Records regulations: The Federal rules restrict any use of the information to criminally investigate or prosecute any alcohol or drug abuse patient.[facility] the event this information is protected by the Federal Confidentiality of Alcohol and Drug Abuse Patient Records regulations: The Federal rules restrict any use of the information to criminally investigate or prosecute any alcohol or drug abuse patient.[facility] Hospital[facility] the event this information is protected by the Federal Confidentiality of Alcohol and Drug Abuse Patient Records regulations: The Federal rules restrict any use of the information to criminally investigate or prosecute any alcohol or drug abuse patient.[facility] Hospital[facility] the event this information is protected by the Federal Confidentiality of Alcohol and Drug Abuse Patient Records regulations: The Federal rules restrict any use of the information to criminally investigate or prosecute any alcohol or drug abuse patient.[facility] Hospital[facility] the event this information is protected by the Federal Confidentiality of Alcohol and Drug Abuse Patient Records regulations: The Federal rules restrict any use of the information to criminally investigate or prosecute any alcohol or drug abuse patient.[facility] Hospital[facility] the event this information is protected by the Federal Confidentiality of Alcohol and Drug Abuse Patient Records regulations: The Federal rules restrict any use of the information to criminally investigate or prosecute any alcohol or drug abuse patient.[facility] HospitalIn the event this information is protected by the Federal Confidentiality of Alcohol and Drug Abuse Patient Records regulations: The Federal rules restrict any use of the information to criminally investigate or prosecute any alcohol or drug abuse patient.[facility] HospitalIn the event this information is protected by the Federal Confidentiality of Alcohol and Drug Abuse Patient Records regulations: The Federal rules restrict any use of the information to criminally investigate or prosecute any alcohol or drug abuse patient.[facility] HospitalIn the event this information is protected by the Federal Confidentiality of Alcohol and Drug Abuse Patient Records regulations: The Federal rules restrict any use of the information to criminally investigate or prosecute any alcohol or drug abuse patient.[facility] HospitalIn the event this information is protected by the Federal Confidentiality of Alcohol and Drug Abuse Patient Records regulations: The Federal rules restrict any use of the information to criminally investigate or prosecute any alcohol or drug abuse patient.[facility] HospitalIn the event this information is protected by the Federal Confidentiality of Alcohol and Drug Abuse Patient Records regulations: The Federal rules restrict any use of the information to criminally investigate or prosecute any alcohol or drug abuse patient.[facility] HospitalIn the event this information is protected by the Federal Confidentiality of Alcohol and Drug Abuse Patient Records regulations: The Federal rules restrict any use of the information to criminally investigate or prosecute any alcohol or drug abuse patient.[facility] HospitalIn the event this information is protected by the Federal Confidentiality of Alcohol and Drug Abuse Patient Records regulations: The Federal rules restrict any use of the information to criminally investigate or prosecute any alcohol or drug abuse patient.[facility] HospitalIn the event this information is protected by the Federal Confidentiality of Alcohol and Drug Abuse Patient Records regulations: The Federal rules restrict any use of the information to criminally investigate or prosecute any alcohol or drug abuse patient.[facility] HospitalIn the event this information is protected by the Federal Confidentiality of Alcohol and Drug Abuse Patient Records regulations: The Federal rules restrict any use of the information to criminally investigate or prosecute any alcohol or drug abuse patient.[facility] HospitalIn the event this information is protected by the Federal Confidentiality of Alcohol and Drug Abuse Patient Records regulations: The Federal rules restrict any use of the information to criminally investigate or prosecute any alcohol or drug abuse patient.[facility] HospitalIn the event this information is protected by the Federal Confidentiality of Alcohol and Drug Abuse Patient Records regulations: The Federal rules restrict any use of the information to criminally investigate or prosecute any alcohol or drug abuse patient.[facility] HospitalIn the event this information is protected by the Federal Confidentiality of Alcohol and Drug Abuse Patient Records regulations: The Federal rules restrict any use of the information to criminally investigate or prosecute any alcohol or drug abuse patient.[facility] HospitalIn the event this information is protected by the Federal Confidentiality of Alcohol and Drug Abuse Patient Records regulations: The Federal rules restrict any use of the information to criminally investigate or prosecute any alcohol or drug abuse patient.[facility] HospitalIn the event this information is protected by the Federal Confidentiality of Alcohol and Drug Abuse Patient Records regulations: The Federal rules restrict any use of the information to criminally investigate or prosecute any alcohol or drug abuse patient.[facility] HospitalIn the event this information is protected by the Federal Confidentiality of Alcohol and Drug Abuse Patient Records regulations: The Federal rules restrict any use of the information to criminally investigate or prosecute any alcohol or drug abuse patient.[facility] HospitalIn the event this information is protected by the Federal Confidentiality of Alcohol and Drug Abuse Patient Records regulations: The Federal rules restrict any use of the information to criminally investigate or prosecute any alcohol or drug abuse patient.[facility] HospitalIn the event this information is protected by the Federal Confidentiality of Alcohol and Drug Abuse Patient Records regulations: The Federal rules restrict any use of the information to criminally investigate or prosecute any alcohol or drug abuse patient.[facility] HospitalIn the event this information is protected by the Federal Confidentiality of Alcohol and Drug Abuse Patient Records regulations: The Federal rules restrict any use of the information to criminally investigate or prosecute any alcohol or drug abuse patient.[facility] HospitalIn the event this information is protected by the Federal Confidentiality of Alcohol and Drug Abuse Patient Records regulations: The Federal rules restrict any use of the information to criminally investigate or prosecute any alcohol or drug abuse patient.[facility] HospitalIn the event this information is protected by the Federal Confidentiality of Alcohol and Drug Abuse Patient Records regulations: The Federal rules restrict any use of the information to criminally investigate or prosecute any alcohol or drug abuse patient.[facility] HospitalIn the event this information is protected by the Federal Confidentiality of Alcohol and Drug Abuse Patient Records regulations: The Federal rules restrict any use of the information to criminally investigate or prosecute any alcohol or drug abuse patient.[facility] HospitalIn the event this information is protected by the Federal Confidentiality of Alcohol and Drug Abuse Patient Records regulations: The Federal rules restrict any use of the information to criminally investigate or prosecute any alcohol or drug abuse patient.[facility] HospitalIn the event this information is protected by the Federal Confidentiality of Alcohol and Drug Abuse Patient Records regulations: The Federal rules restrict any use of the information to criminally investigate or prosecute any alcohol or drug abuse patient.[facility] HospitalIn the event this information is protected by the Federal Confidentiality of Alcohol and Drug Abuse Patient Records regulations: The Federal rules restrict any use of the information to criminally investigate or prosecute any alcohol or drug abuse patient.[facility] HospitalIn the event this information is protected by the Federal Confidentiality of Alcohol and Drug Abuse Patient Records regulations: The Federal rules restrict any use of the information to criminally investigate or prosecute any alcohol or drug abuse patient.[facility] HospitalIn the event this information is protected by the Federal Confidentiality of Alcohol and Drug Abuse Patient Records regulations: The Federal rules restrict any use of the information to criminally investigate or prosecute any alcohol or drug abuse patient.[facility] HospitalIn the event this information is protected by the Federal Confidentiality of Alcohol and Drug Abuse Patient Records regulations: The Federal rules restrict any use of the information to criminally investigate or prosecute any alcohol or drug abuse patient.[facility] HospitalIn the event this information is protected by the Federal Confidentiality of Alcohol and Drug Abuse Patient Records regulations: The Federal rules restrict any use of the information to criminally investigate or prosecute any alcohol or drug abuse patient.[facility] HospitalIn the event this information is protected by the Federal Confidentiality of Alcohol and Drug Abuse Patient Records regulations: The Federal rules restrict any use of the information to criminally investigate or prosecute any alcohol or drug abuse patient.[facility] HospitalIn the event this information is protected by the Federal Confidentiality of Alcohol and Drug Abuse Patient Records regulations: The Federal rules restrict any use of the information to criminally investigate or prosecute any alcohol or drug abuse patient.[facility] HospitalIn the event this information is protected by the Federal Confidentiality of Alcohol and Drug Abuse Patient Records regulations: The Federal rules restrict any use of the information to criminally investigate or prosecute any alcohol or drug abuse patient.[facility] HospitalIn the event this information is protected by the Federal Confidentiality of Alcohol and Drug Abuse Patient Records regulations: The Federal rules restrict any use of the information to criminally investigate or prosecute any alcohol or drug abuse patient.[facility] HospitalIn the event this information is protected by the Federal Confidentiality of Alcohol and Drug Abuse Patient Records regulations: The Federal rules restrict any use of the information to criminally investigate or prosecute any alcohol or drug abuse patient.[facility] HospitalIn the event this information is protected by the Federal Confidentiality of Alcohol and Drug Abuse Patient Records regulations: The Federal rules restrict any use of the information to criminally investigate or prosecute any alcohol or drug abuse patient.[facility] HospitalIn the event this information is protected by the Federal Confidentiality of Alcohol and Drug Abuse Patient Records regulations: The Federal rules restrict any use of the information to criminally investigate or prosecute any alcohol or drug abuse patient.[facility] HospitalIn the event this information is protected by the Federal Confidentiality of Alcohol and Drug Abuse Patient Records regulations: The Federal rules restrict any use of the information to criminally investigate or prosecute any alcohol or drug abuse patient.[facility] HospitalIn the event this information is protected by the Federal Confidentiality of Alcohol and Drug Abuse Patient Records regulations: The Federal rules restrict any use of the information to criminally investigate or prosecute any alcohol or drug abuse patient.[facility] HospitalIn the event this information is protected by the Federal Confidentiality of Alcohol and Drug Abuse Patient Records regulations: The Federal rules restrict any use of the information to criminally investigate or prosecute any alcohol or drug abuse patient.[facility] HospitalIn the event this information is protected by the Federal Confidentiality of Alcohol and Drug Abuse Patient Records regulations: The Federal rules restrict any use of the information to criminally investigate or prosecute any alcohol or drug abuse patient.[facility] HospitalIn the event this information is protected by the Federal Confidentiality of Alcohol and Drug Abuse Patient Records regulations: The Federal rules restrict any use of the information to criminally investigate or prosecute any alcohol or drug abuse patient.[facility] HospitalIn the event this information is protected by the Federal Confidentiality of Alcohol and Drug Abuse Patient Records regulations: The Federal rules restrict any use of the information to criminally investigate or prosecute any alcohol or drug abuse patient.[facility] HospitalIn the event this information is protected by the Federal Confidentiality of Alcohol and Drug Abuse Patient Records regulations: The Federal rules restrict any use of the information to criminally investigate or prosecute any alcohol or drug abuse patient.[facility] Reason for Visit (unrecogniz ed section and content) Reason Comments Physical Reason Comments Results Reason Comments Results Reason Comments Blood Pressure Check Reason Comments Orders Specialty Diagnoses / Procedures Referred By Contac t Referred To Contact MR IMAGING Diagnoses Abnormal results of liver function studies Procedures MRI PANC/CHRISTOS WO/W IVCON MRI ABDOMEN W/O & W/CONTRAST MATERIAL Cecily Coelho PA-C [address] [place] [address] Mr Imaging Referral ID Status Reason Start Date Expiration Date V isits Requested Visits Authorized [id number] Closed Auto-Generate d Referral 10/16/2021 11/15/2022 1 [...] body ach es, headache, x 3-4 days Reason Onset Date Comments Refill Request 08/18/2023 Reason Comments New Pain Specialty Diagnoses / Procedures Referred By Contac t Referred To Contact Orthopedics Diagnoses Acute pain of right shoulder Procedures CONSULT TO ORTHOPAEDICS OFFICE/OUTPATIENT NEW HIGH MDM 60-74 MINUTES Juany Lawrence APRN.DIVORCE MEDIATOR [address] [place] [address] Referral ID Status Reason Start Date Expiration Date V isits Requested Visits Authorized [id number] Closed PCP Requested Referral 06/19/2023 06/18/2024 1 1 Reason Comments Established Patient Follow Up Reason Comments Medicare Wellness Exam Reason Comments Vaginal Problem Prolapse? Specialty Diagnoses / Procedures Referred By Contac t Referred To Contact Diagnoses Vaginal anomaly Procedures CONSULT TO LYE BATH OPERATOR OFFICE/OUTPATIENT [facility] 60 MINUTES Franklin Arias MD [address] [place] [address] Referral ID Status Reason Start Date Expiration Date V isits Requested Visits Authorized [id number] Closed PCP Requested Referral Auto-Generated Referral 11/04/2023 11/03/2024 1 1 Reason Comments Patient Update Reason Comments Refill Request Care Teams (unrecognized sec tion and content) Television News Anchor Relationship Specialty Start Date End Date Franklin Arias MD [facility] [place] [address] PCP - General Family Practice 07/17/20 Television News Anchor Relationship Specialty Start Date End Date Franklin Arias MD [facility] [place] [address] PCP - General Family Practice 07/17/20 Television News Anchor Relationship Specialty Start Date End Date Franklin Arias MD [address] [place] [address] PCP - General Family Practice 07/17/20 Television News Anchor Relationship Specialty Start Date End Date Franklin Arias MD [facility] [place] [address] PCP - General Family Practice 07/17/20 Television News Anchor Relationship Specialty Start Date End Date Franklin Arias MD [address] [place] [address] PCP - General Family Practice 07/17/20 Television News Anchor Relationship Specialty Start Date End Date Franklin Arias MD [address] [place] [address] PCP - General Family Practice 07/17/20 Television News Anchor Relationship Specialty Start Date End Date Franklin Arias MD [address] [place] [address] PCP - General Family Practice 07/17/20 Television News Anchor Relationship Specialty Start Date End Date Franklin Arias MD [facility] [place] [address] PCP - General Family Practice 07/17/20 Television News Anchor Relationship Specialty Start Date End Date Franklin Arias MD [facility] [place] [address] PCP - General Family Practice 07/17/20 Television News Anchor Relationship Specialty Start Date End Date Franklin Arias MD [address] [place] [address] PCP - General Family Practice 07/17/20 Television News Anchor Relationship Specialty Start Date End Date Franklin Arias MD [facility] [place] [address] PCP - General Family Practice 07/17/20 Television News Anchor Relationship Specialty Start Date End Date Franklin Arias MD [facility] [place] [address] PCP - General Family Practice 07/17/20 Television News Anchor Relationship Specialty Start Date End Date Franklin Arias MD [facility] [place] [address] PCP - General Family Practice 07/17/20 Television News Anchor Relationship Specialty Start Date End Date Franklin Arias MD [address] [place] [address] [place] [address] PCP - General Family Practice 07/17/20 Television News Anchor Relationship Specialty Start Date End Date Franklin Arias MD [address] [place] [address] PCP - General Family Practice 07/17/20 Television News Anchor Relationship Specialty Start Date End Date Franklin Arias MD [address] [place] [address] PCP - General Family Practice 07/17/20 Television News Anchor Relationship Specialty Start Date End Date Franklin Arias MD [facility] [place] [address] PCP - General Family Practice 07/17/20 Television News Anchor Relationship Specialty Start Date End Date Franklin Arias MD [facility] [place] [address] PCP - General Family Practice 07/17/20 Television News Anchor Relationship Specialty Start Date End Date Franklin Arias MD [facility] [place] [address] PCP - General Family Practice 07/17/20 Television News Anchor Relationship Specialty Start Date End Date Franklin Arias MD [facility] [place] [address] PCP - General Family Practice 07/17/20 Television News Anchor Relationship Specialty Start Date End Date Franklin Arias MD [facility] [place] [address] PCP - General Family Medicine 07/17/20 Television News Anchor Relationship Specialty Start Date End Date Franklin Arias MD [facility] [place] [address] PCP - General Family Medicine 07/17/20 Television News Anchor Relationship Specialty Start Date End Date Franklin Arias MD [facility] [place] [address] PCP - General Family Medicine 07/17/20 Television News Anchor Relationship Specialty Start Date End Date Franklin Arias MD [address] [place] [address] PCP - General Family Medicine 07/17/20 Television News Anchor Relationship Specialty Start Date End Date Franklin Arias MD [address] [place] [address] PCP - General Family Medicine 07/17/20 Television News Anchor Relationship Specialty Start Date End Date Franklin Arias MD [facility] [place] [address] PCP - General Family Medicine 07/17/20 Television News Anchor Relationship Specialty Start Date End Date Franklin Arias MD [address] [place] [address], [place] [address] PCP - General Family Medicine 07/17/20 Television News Anchor Relationship Specialty Start Date End Date Franklin Arias MD [facility] [place] [address] PCP - General Family Medicine 07/17/20 Television News Anchor Relationship Specialty Start Date End Date Franklin Arias MD [facility] [place] [address] PCP - General Family Medicine 07/17/20 Television News Anchor Relationship Specialty Start Date End Date Franklin Arias MD [facility] [place] [address] PCP - General Family Medicine 07/17/20 Television News Anchor Relationship Specialty Start Date End Date Franklin Arias MD [facility] [place] [address] PCP - General Family Medicine 07/17/20 Television News Anchor Relationship Specialty Start Date End Date Franklin Arias MD [facility] [place] [address] PCP - General Family Medicine 07/17/20 Television News Anchor Relationship Specialty Start Date End Date Franklin Arias MD [address] [place] [address] PCP - General Family Medicine 07/17/20 Television News Anchor Relationship Specialty Start Date End Date Franklin Arias MD [address] [place] [address] PCP - General Family Medicine 07/17/20 Television News Anchor Relationship Specialty Start Date End Date Franklin Arias MD [address] [place] [address] PCP - General Family Medicine 07/17/20 Television News Anchor Relationship Specialty Start Date End Date Franklin Arias MD [address] [place] [address] PCP - General Family Medicine 07/17/20 Television News Anchor Relationship Specialty Start Date End Date Franklin Arias MD [address] [place] [address] PCP - General Family Medicine 07/17/20 Television News Anchor Relationship Specialty Start Date End Date Franklin Arias MD [address] [place] [address] PCP - General Family Medicine 07/17/20 Television News Anchor Relationship Specialty Start Date End Date Franklin Arias MD [address] [place] [address] PCP - General Family Medicine 07/17/20 Television News Anchor Relationship Specialty Start Date End Date Franklin Arias MD [address] [place] [address] PCP - General Family Medicine 07/17/20 Television News Anchor Relationship Specialty Start Date End Date Franklin Arias MD [address] [place] [address] PCP - General Family Medicine 07/17/20 Television News Anchor Relationship Specialty Start Date End Date Franklin Arias MD [address] [place] [address] PCP - General Family Medicine 07/17/20 Television News Anchor Relationship Specialty Start Date End Date Franklin Arias MD [address] [place] [address] PCP - General Family Medicine 07/17/20 Television News Anchor Relationship Specialty Start Date End Date Franklin Arias MD [address] [place] [address] PCP - General Family Medicine 07/17/20 Television News Anchor Relationship Specialty Start Date End Date Franklin Arias MD [address] [place] [address] PCP - General Family Medicine 07/17/20 Television News Anchor Relationship Specialty Start Date End Date Franklin Arias MD [address] [place] [address] PCP - General Family Medicine 07/17/20 Television News Anchor Relationship Specialty Start Date End Date Franklin Arias MD [address] [place] [address] PCP - General Family Medicine 07/17/20 Television News Anchor Relationship Specialty Start Date End Date Franklin Arias MD [address] [place] [address] PCP - General Family Medicine 07/17/20 Television News Anchor Relationship Specialty Start Date End Date Franklin Arias MD [address] [place] [address] PCP - General Family Medicine 07/17/20 Television News Anchor Relationship Specialty Start Date End Date Franklin Arias MD [address] [place], [place] [address] PCP - General Family Medicine 07/17/20 Television News Anchor Relationship Specialty Start Date End Date Franklin Arias MD [address] [place], [place] [address] PCP - General Family Medicine 07/17/20 INFORMATION SOURCE (unrecogn ized section and content) DATE CREATED AUTHOR 10/18/2021 [facility] DATE CREATED AUTHOR AUTHOR'S ORGANIZ ATION 12/19/[address] [facility] Inactive Administered Medications - up to 3 most recent administrations Administered Medications (un recognized section and content) Medication Order MAR Action Action Date Dose Rate Site betamethasone acetate-betamethasone sodium phosphate 6 mg injection (CELESTONE) 6 mg, Injection - FOR ORTHO USE ONLY, ONCE, 1 dose, Starting on 08/25/23 at 1448, Until Fri08/25/23 at 1448 Given 08/25/2023 2:48 PM EST 6 mg marisabeler, Right lidocaine (PF) 10 mg/mL (1 %) 4 mL injection (XYLOCAINE) 4 mL, Injection - FOR ORTHO USE ONLY, ONCE, 1 dose, Starting on 08/25/23 at 1448, Until 08/25/23 at 1448 Given 08/25/2023 2:48 PM EST 4 mL Right Chuck FOR RECORDS PERTAINING TO PATIENTS WHO ARE [...] BE BASED ON THE PRIMARY CLINICAL RECORDS. [facility] [employer] [facility]. provides no warranty or guarantee of the accuracy or completeness of information in this document.
== END | disposition home or self-care (01) ==
LOC: CVS 13:36
PROVIDERS: PCP Internal Medicine; Referring Provider Internal Medicine; Visit Provider Internal Medicine
DX: R01.1 Cardiac murmur, unspecified (principal)
CPT/HCPCS: 93306

== ENCOUNTER → 2024-09-27 | Outpatient (CLI) | payer MEDICARE, SELFPAY ==
--- NOTE | 2024-09-27 13:26 | CT_ITS ---
PROCEDURE: ABDOMEN/PELVIS WITH CONTRAST 09/27/2024 REASON FOR EXAM: PANCRATIC CYST TECHNIQUE: CT abdomen and pelvis was performed with IV contrast. Multiplanar reformats were generated. PATIENT PREPARATION: Per protocol ORAL CONTRAST TYPE: Administered, however type and volume information is not provided. CONTRAST: Isovue-[id number] VOLUME: 98ML One or more dose reduction techniques were used (e.g., Automated exposure control, adjustment of the mA and/or kV according to patient size, use of iterative reconstruction technique. RADIATION DOSE SUMMARY: CTDlvol: 18.23 mGy DLP: 1000.54 mGycm COMPARISON: 08/12/2022. Images only are available for review, the report is not available at the time of dictation.. FINDINGS: Lung bases: Coronary atherosclerosis and/or stents. Aortic annular calcification.. Liver: Unremarkable. Spleen: Unremarkable. Gallbladder: Cholecystectomy. A small cystic focus immediately posterior to and abutting the common hepatic duct/CBD is grossly unchanged, roughly 1.6 cm, much better seen previously. Pancreas: Unremarkable. Punctate T2 bright presumed cysts seen on MRCP 08/12/2022 are probably too small to visualize by CT. No ductal dilatation. Adrenals: Unremarkable. Kidneys: Indeterminate exophytic 2.2 cm posterior right lower pole renal lesion was present previously and was partially imaged on many sequences, questionably minimally enlarged from 1.7 cm previously although only imaged in its entirety in the coronal plane at that time. Bowel: Mild diverticulosis. Appendix not identified. Lymph nodes: Unremarkable. Vasculature: Atherosclerosis. Mild multifocal ectasia of the infrarenal abdominal aorta.. Peritoneum: Trace pelvic free fluid. Bladder: Bladder wall thickening slightly disproportionate to underdistention. Reproductive Organs: 2.1 cm left adnexal cyst, incompletely characterized by CT. Body Wall: Small fat containing left femoral hernia. Small fat containing infraumbilical hernia to the right of midline. Tiny fat containing umbilical hernia.. Bones: Demineralization. Multilevel spondylosis. Variable spinal canal stenoses up to at least moderate/severe at L2-L3. Lumbar levoscoliosis. Fiindings suggestive of diffuse idiopathic skeletal hyperostosis. Nonspecific 1.2 cm faintly sclerotic lesion in the right iliac bone. CT/Abdomen/Pelvis WITH Contrast IMPRESSION: 1. Correlate for mild cystitis. 2. No pancreatic cyst or ductal dilatation is evident by CT. A 1.7 cm cystic s tructure posterior to the and abutting the common hepatic duct/CBD is grossly unchanged by CT since MRCP of 08/12/2022, but was m uch better evaluated previously. 3. Possible minimal enlargement of an indeterminate 2.2 cm right renal lesion, possible hemorrhagic/proteinaceous cyst however this is not definite. Recommend targeted renal ultrasound and consideration of multiphase renal protocol CT or MRI with and without contrast if this does not appear definitely cystic. 4. 2.1 cm left adnexal cyst incompletely characterized by CT. Recommend pelvic ultrasound. 5. 1.2 cm faintly sclerotic lesion in the right iliac bone, nonspecific in the absence of known malignancy, possible faintly sclerotic bone island. Correlate with medical history and follow-up as indicat ed. 6. Trace pelvic free fluid, nonspecific but unexpected in a presumed postmenopa usal female. 7. Additional description as above. Reading Location: [id number]
== END | disposition home or self-care (01) ==
LOC: CT 12:51
PROVIDERS: PCP Internal Medicine; Referring Provider Internal Medicine; Visit Provider Internal Medicine
DX: K75.81 Nonalcoholic steatohepatitis (NASH) (principal); K86.2 Cyst of pancreas
CPT/HCPCS: 74177; Q9967

== ENCOUNTER → 2024-10-12 | Outpatient (CLI) | payer MEDICARE, SELFPAY ==
--- NOTE | 2024-10-12 07:00 | BD_ITS ---
PROCEDURE: DEXA BONE DENSITY STUDY 10/12/2024 REASON FOR EXAM: F, age 69 y/o . Postmenopausal. TECHNIQUE: DXA scan of the lumbar spine and left hip, using make and model. REFERENCE LINKS: [facility] Adult Positions COMPARISON: None FINDINGS: BMD and T-SCORES Lumbar spine: 1.174 g/cm2, T-Score 1.4 L1 through L4 Left femoral neck: 0.780 g/cm2, T-Score -0.6 Femoral neck comparison data not recommended for monitoring change. Left total hip: 0.994 g/cm2, T-Score 1.8 Right femoral neck: 0.836 g/cm2, T-Score -0.1 Femoral neck comparison data not recommended for monitoring change. Right total hip: 1.02 findings g/cm2, T-Score 0.7 Change from prior: BD/Dexa Bone Density Study IMPRESSION: NORMAL T-SCORES. Recommend follow-up as clinically warranted. Reading Location: [facility]
== END | disposition home or self-care (01) ==
LOC: OPBD 06:58
PROVIDERS: PCP Internal Medicine; Referring Provider Internal Medicine; Visit Provider Internal Medicine
DX: Z78.0 Asymptomatic menopausal state (principal)
CPT/HCPCS: 77080

== ENCOUNTER → 2024-11-02 | Outpatient (CLI) | payer MEDICARE, SELFPAY ==
--- NOTE | 2024-11-02 15:40 | US_ITS ---
PROCEDURE: PELVIC (NON ) 11/02/2024 REASON FOR EXAM: UTERINE PROLAPSE TECHNIQUE: Transabdominal pelvic ultrasound FINDINGS: Measurements: Uterus: 9.3 x 4.2 x 3.4 with a volume of mL Endometrial Thickness: 4 mm Right Ovary: 2.1 x 1.6 x 1.6 with a volume of mL. Left Ovary: 2.7 x 2.3 x 1.4 with a volume of mL. Uterus: Slightly retroflexed. Normal echogenicity. Endometrium: Unremarkable. Right ovary: Normal size and echotexture. Left ovary: Normal size and echotexture. Other: US/Pelvic (Non ) IMPRESSION: NORMAL TRANSABDOMINAL PELVIC ULTRASOUND. Reading Location: [id number]
== END | disposition home or self-care (01) ==
LOC: US 15:39
PROVIDERS: PCP Internal Medicine; Referring Provider Obstetrics & Gynecology; Visit Provider Obstetrics & Gynecology
DX: N81.4 Uterovaginal prolapse, unspecified (principal)
CPT/HCPCS: 76856

== ENCOUNTER → 2025-03-22 | Outpatient (CLI) | payer MEDICARE, SELFPAY ==
[2025-03-22 15:24] LABS: Hematocrit 39.7 % (37-47); Hemoglobin 13.2 g/dL (12.0-15.0); Immature Granulocytes Count 0.010 X10^3/uL (0.0-0.0); Mean Corp Hgb Conc 33.2 g/dL (32-36); Mean Corpuscular Volume 100.3 fL (81-99); Mean Platelet Vol. 11.8 fl (6.2-12.0); NRBC Flagged by Analyzer 0 % (0-5); Platelet Count 177 K/mm3 (150-450); RBC Distribution Width CV 12.8 % (11.6-14.6); RBC Distribution Width SD 46.5 fl (35.1-43.9); Red Blood Count 3.96 M/mm3 (4.2-5.4); White Blood Count 5.1 K/mm3 (4.4-11.0)
[2025-03-22 18:42] LABS: Anion Gap 11 (5-15); BUN 19 mg/dL (4-19); BUN/Creat Ratio 23.5 RATIO (10-20); Calcium,Total 9.5 mg/dL (7.6-11.0); Carbon Dioxide 25.6 mmol/L (21.0-32.0); Chloride 106 mmol/L (98-108); Glucose 68 mg/dL (70-99); Potassium 4.1 mmol/L (3.3-5.1)
--- OUTSIDE RECORDS SUMMARY | 2025-03-22 22:20 | XMS RPT_ITS | CCD ---
Author Organization [facility] Care Team Providers Care Editor At Large Name Role Phone Eliezer BURCH, Franklin Kang Primary Care Provider DEVAUGHN Dalal Primary Care Provider DEVAUGHN Dalal Referring Provider Verónica RODRÍGUEZ, EPIC SPECIALIST-C Blanca Nicholas Attending Provider [phone] Franklin Arias MD Primary Care Provider Franklin Arias MD Primary Care Provider Franklin Arias MD Primary Care Provider DEVAUGHN Dalal Primary Care Provider DEVAUGHN Dalal Referring Provider Verónica RODRÍGUEZ, ANNE-C Blanca Nicholas Attending Provider DEVAUGHN Dalal Primary Care Provider DEVAUGHN Dalal Referring Provider Dr. Migue Hutchinson Attending Provider Franklin Arias MD Primary Care Provider Franklin Arias MD Primary Care Provider Dr. Paula Barrera DO Primary Care Provider Jasper BURCH, Dr. Camarena Attending Provider Dr. Migue Hutchinson MD Referring Provider Dr. Paula Barrera DO Attending Provider Dr. Paula Barrera DO Referring Provider Carolyn BURCH, Dr. Buckley Attending Provider [phone] Carolyn BUCRH, Dr. Buckley Referring Provider [phone] Meliton MACK, Cecily Unavailable Franklin Arias MD Primary Care Provider [phone] Issa HAIRSPRING TRUER.DRILL PRESS SET UP OPERATOR, Sudha Unavailable Meliton MACK, Cecily Unavailable Holly SMILEY, Dr. Mitchell Primary Care Provider Riddhi BURCH, Dr. Tolentino Attending Provider Holly SMILEY, Dr. Mitchell Referring Provider Holly, Paula Primary Care Unavailable David Lay Attending Unavailable Holly, Paula Primary Care Unavailable Ina Leno Attending Unavailable Holly, Paula Referring Unavailable Holly, Paula Primary Care Unavailable Ina Leon Attending Unavailable Ina Leon Referring Unavailable Holly, Paula Primary Care Unavailable Ina Leon Attending Unavailable Holly, Paula Primary Care Unavailable Shaquille Ayala Attending Unavailable Shaquille Ayala Referring Unavailable Holly, Paula Primary Care Unavailable Holly, Paula Attending Unavailable Holly, Paula Referring Unavailable Holly, Paula Primary Care Unavailable Holly, Paula Attending Unavailable Holly, Paula Referring Unavailable Jasper, Migue Attending Unavailable Jasper, Migue Referring Unavailable Holly, Paula Primary Care Unavailable Holly, Paula Primary Care Unavailable Holly, Paula Attending Unavailable Holly, Paula Referring Unavailable Holly, Paula Primary Care Unavailable Shaquille Ayala Attending Unavailable Holly, Paula Referring Unavailable Holly, Paula Primary Care Unavailable Alonzo Baker Attending Unavailable Holly, Paula Referring Unavailable Allergies Allergy Classification Reported Allergen(s) Allergy Type Date of Onset Reaction(s) Facility Angiotensin Converting Enzyme (DANISHA) Inhibitors (1 source) Lisinopril Drug Allergy 4 Cough [facility] NSAIDs (1 source) Ibuprofen Drug Allergy 5 Intolerance, GI Upset [facility] Opioid Agonists (3 sources) Codeine Drug Allergy 5 Intolerance, Cough, Vomiting, Shortness of Breath, GI Upset, Anaphylaxis, Other: See Comments [facility] Promethazine (1 source) Promethazine Drug Allergy 4 Itching [facility] (20 sources) Codeine Drug Allergy 5 Intolerance [facility] Work Phone: (20 sources) HYDROcodone Drug Allergy 5 Cough, Vomiting, Shortness of Breath [facility] Work Phone: (20 sources) Ibuprofen Drug Allergy 5 Intolerance, GI Upset [facility] Work Phone: (20 sources) Lisinopril Drug Allergy 4 Cough [facility] Work Phone: (20 sources) oxyCODONE Drug Allergy 4 GI Upset, Anaphylaxis, Other: See Comments [facility] Work Phone: (20 sources) Promethazine Drug Allergy 4 Itching [facility] Work Phone: (20 sources) Salicylic Acid Drug Allergy 5 [facility] Work Phone: (12 sources) Aspirin Drug Allergy 2 Itching [facility] (20 sources) Salicylate product Drug Allergy 5 [facility] Work Phone: (1 source) Aspirin Drug Allergy 5 [facility] (1 source) Codeine Drug Allergy 5 [facility] (1 source) HYDROcodone Drug Allergy 5 [facility] (1 source) Ibuprofen Drug Allergy 5 [facility] (1 source) Lisinopril Drug Allergy 5 [facility] Medications Current Medications Medication Drug Class(es) Dates [...] Take 1 tablet by nilda th twice daily for 5 days. atorvastatin 80 mg oral tablet (20 sources) HMG-CoA Reductase Inhibitor Start: 11-07-2023 take 1 tablet by mouth once daily at bedtime for hyperlipidemia atorvastatin (LIPITOR) 80 mg tablet Indications: Mixed hyperlipidemia Take 1 tablet by mouth daily at bedtime. For cholesterol. 90 tablet 1 11/07/2023 Active Start: 10-14-2022 End: 11-07-2023 take 1 tablet by mouth at bedtime Atorvastatin 40 mg tablet Active 40 mg PO AT BEDTIME October 21, 2022 12:00am Start: 01-26-2018 End: 10-21-2022 take 1 tablet by mouth once daily Atorvastatin 20 mg tablet Discontinued 20 mg PO daily January 26, 2018 12:00am October 21, 2022 1:57pm Comment on above: Take 1 tablet by nilda daily at bedtime. For cholesterol. benzonatate 100 mg oral capsule (16 sources) Non-narcotic Antitussive Start: End: take 1 [...] days. 30 capsule 0 12/06/2021 12/21/2021 Active Start: 04-13-2014 End: 01-26-2018 take 2 capsules by mouth three times daily as needed for cough Benzonatate 100 MG capsule Discontinued 200 mg PO 3 TIMES DAILY NEEDED as needed for Cough 60 0 April 13, 2014 12:00am January 26, 2018 3:23pm Start: 04-13-2014 End: 01-26-2018 take 200 mg by mouth three times daily as needed Benzonatate Discontinued 200 MG PO 3 TIMES DAILY NEEDED 60 April 12, 2014 11:00pm January 26, 2018 2:23pm Comment on above: Take [address] [facility] every 8 hours as needed for cough for up to 15 days. Take 1 capsule by mo [facility] three times daily as needed for up to 7 days. cholecalciferol 0.01 mg oral tablet (9 sources) Vitamin D take 1 capsule by mouth once daily cholecalciferol (VITAMIN D-3) 400 unit tab Take 400 Units by mouth two times a day. Take 1 capsule by mouth daily for liver fibrosis Active diclofenac sodium 0.01 mg/mg topical gel (20 sources) Nonsteroidal Anti-inflammatory Drug Start: End: apply 4 g topically four times daily diclofenac (VOLTAREN) 1 % topical gel Indications: Pain in both knees, unspecified chronicity Apply 4 g to affected area four times daily. 4 g 4 11/11/2023 Active Comment on above: Apply 4 g to affecte d area four times daily. fluconazole 150 mg oral tablet (2 sources) Azole Antifungal Start: End: fluconazole (DIFLUCAN) 150 mg tablet Take 1 [...] Comment on above: Take 1 tablet by [facility] one time only for 1 dose. Repeat in 3 days as needed. hydroCHLOROthiazide 25 mg oral tablet (20 sources) Thiazide Diuretic Start: 022 End: take 1 tablet by mouth once daily hydroCHLOROthiazide 25 mg tablet Indications: Essential hypertension Take 1 tablet by mouth once daily. 90 tablet 11/04/2023 Active Start: 02-05-2022 Hydrochlorothi azide 12.5 mg capsule Active N[facility] February 05, 2022 12:00am Start: 12-25-2021 End: 04-09-2022 Hydrochlorothiazide Active C AP February 04, 2022 11:00pm Comment on above: Take 1 capsule by mo [facility] once daily. Take 1 tablet by nilda once daily. iv contrast (will be provided with radiology [...] 10 mg oral tablet (20 sources) Start: 3 End: 3 take 1 tablet by mouth once daily loratadine (CLARITIN) 10 mg tablet Indications: Acute cough Take 1 tablet by mouth once daily. 30 tablet 11 03/21/2023 Active Comment on above: Take 1 tablet by nilda th once daily. losartan potassium 100 mg oral tablet (20 sources) Angiotensin 2 Receptor Olivia Start: 2 End: 4 take 1 tablet by mouth once daily Losartan 100 mg tablet Active 100 mg PO DAILY October 29, 2021 12:00am Start: 11-27-2020 End: 01-22-2022 take 1 tablet by mouth once daily Losartan 50 mg Tablet Discontinued 50 mg PO DAILY November 27, 2020 12:00am January 22, 2022 1:40pm Comment on above: Take 1 tablet by nilda once daily. metFORMIN hydrochloride 500 mg oral tablet (19 sources) Biguanide Start: 08-12-2023 take 1 tablet by mouth every twelve hours metFORMIN (GLUCOPHAGE) 500 mg tablet Take 1 tablet by mouth every 12 hours. 08/12/2023 Active Start: 08-12-2023 take 1 tablet by nilda twice daily Metformin 500 mg tablet Active 500 mg PO TWICE A DAY 180 90 1 August 12, 2023 1:00am Comment on above: Take 1 tablet by nilad every 12 hours. pantoprazole 40 mg delayed release oral tablet (20 sources) Proton Pump Inhibitor Start: 4 take 1 tablet by mouth once daily 1 hour(s) before breakfast Pantoprazole 40 mg tablet,delayed release (DR/EC) Active 40 mg PO DAILY 30 30 4 November 18, 2023 3:15pm 1 hour before breakfast Start: 11-27-2020 End: 11-18-2023 take 1 tablet by mouth twice daily Pantoprazole 40 mg tablet,delayed release (DR/EC) Discontinued 40 mg PO TWICE A DAY 60 30 2 August 12, 2023 1:24pm November 18, 2023 3:16pm Comment on above: Take 1 tablet by nilda twice daily. Take on empty stomach, 1/2 hr before meal. Take 1 tablet by nilda th two times a day. Take on empty stomach, 1/2 hr before meal. predniSONE 10 mg oral tablet (1 source) Start: 2 End: 2 take 4 tablets by mouth once daily, [...] on above: Take 4 tablets by mo [facility] once daily for 3 days, THEN 2 tablets once daily for 3 days, THEN 1 tablet once daily for 1 day. Take with food.. vitamin b12 1 mg oral tablet (20 sources) Vitamin B12 Start: 2 End: 3 take 1 tablet by mouth once daily cyanocobalamin (VITAMIN B-12) 1,000 mcg tab Take 1 tablet by mouth once daily. 90 tablet 3 08/06/2022 Active Comment on above: [facility] Completed/Discontinued Medications Medication Drug Class(es) Dates Sig [...] on above: Take 1 tablet by nilda three times daily as needed for muscle spasm. ergocalciferol 1.25 mg oral capsule (20 sources) Provitamin D2 Compound Start: End: Ergocalciferol (Vitamin D2) (Vitamin D2) 1,250 mcg (50,000 unit) Capsule Discontinued 1250 ug PO MO November 27, 2020 12:00am August 12, 2023 1:25pm Comment on above: Take [address] [facility] one time a week. 10 ml lidocaine hydrochloride 10 mg/ml injection (1 source) Antiarrhythmic, Amide Local Anesthetic Start: End: lidocaine (PF) 10 mg/mL (1 %) 4 mL injection (XYLOCAINE) lisinopril 10 mg oral tablet (12 sources) Angiotensin Converting Enzyme Inhibitor Start: End: take 1 tablet by mouth once daily Lisinopril 10 MG tablet Discontinued 10 mg PO DAILY February 24, 2014 12:00am January 26, 2018 3:23pm omeprazole 20 mg delayed release oral capsule (12 sources) Proton Pump Inhibitor Start: End: take 1 capsule by mouth once daily Omeprazole 20 MG capsule Discontinued 20 mg PO DAILY September 01, 2013 1:00am January 26, 2018 3:24pm ondansetron 4 mg disintegrating oral tablet (12 sources) Serotonin-3 Receptor Antagonist Start: End: take 1 tablet by mouth every eight hours as needed for nausea Ondansetron 4 MG tablet Discontinued 4 mg PO EVERY 8 HOURS NEEDED as needed for Nausea/Emesis 20 0 March 09, 2014 12:00am January 26, 2018 3:23pm perflutren lipid microspheres 1.3 mL in NaCl (PF) 0.9% 10 mL injection (DEFINITY) (20 sources) Start: End: perflutren lipid microspheres 1.3 mL in NaCl (PF) 0.9% 10 mL injection (DEFINITY) microencapsulated potassium chloride 20 meq extended release oral tablet (20 sources) Start: End: take 1 tablet by mouth once daily Potassium Chloride 20 mEq tablet,ER particles/crystals Discontinued 20 meq PO DAILY 7 7 0 August 12, 2023 1:00am August 18, 2023 1:00am August 19, 2023 1:05am Start: 04-15-2023 End: 11-04-2023 take 1 tablet by mouth once daily at breakfast potassium chloride (K-TAB) 10 mEq tablet Take 1 tablet by mouth daily with breakfast. 90 tablet 11/04/2023 Active Comment on above: Take 1 tablet by [facility] daily with breakfast. simvastatin 20 mg oral tablet (12 sources) HMG-CoA Reductase Inhibitor Start: 4 End: 8 take 1 tablet by mouth at bedtime Simvastatin 20 MG tablet Discontinued 20 mg PO AT BEDTIME September 01, 2013 1:00am January 26, 2018 3:22pm 125 ml sodium chloride 9 mg/ml prefilled syringe (20 sources) Start: 1 End: 2 sodium chloride 0.9 % (flush) 10 mL (BD POSIFLUSH) traMADol hydrochloride 50 mg oral tablet (12 sources) Opioid Agonist Start: 4 End: 8 take 1 tablet by mouth every four hours as needed for pain Tramadol 50 MG tablet Discontinued 50 mg PO EVERY 4 HOURS NEEDED as needed for Pain April 13, 2014 12:00am January 26, 2018 3:23pm ursodiol 300 mg oral capsule (20 sources) Bile Acid Start: 2 End: 4 take 1 capsule by mouth twice daily Ursodiol 300 mg capsule Discontinued 300 mg PO TWICE A DAY 180 April 22, 2023 8:55am August 12, 2023 1:25pm liver fibrosis Comment on above: Take [address] [facility] twice daily. Per Gastro: Dr. Corona vitamin e 180 mg oral capsule (20 sources) Start: 2 Vitamin E, dl, acetate, (VITAMIN E) 400 unit capsule Take 1 capsule by mouth twice daily. Per Gastro: Dr. Corona 04/09/2022 Active Start: 02-08-2022 End: 10-29-2024 take 1 capsule by mouth twice daily Vitamin E (Dl, Acetate) 180 mg (400 unit) capsule Discontinued 180 mg PO TWICE A DAY 180 3 January 08, 2024 7:44am October 29, 2024 10:44am liver fibrosis Comment on above: Take 1 capsule by [facility] twice daily. 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] 11-04-2023 Chronic Hepatitis (9 sources) Nonalcoholic steatohepatitis; Translations: [Nonalcoholic steatohepatitis (STILES)] Onset: 10-15-2024 10-21-2022 Chronic Immunizations and screening for infectious disease (5 sources) Vaccination needed; Translations: [Encounter for immunization] Episodic Neoplasms of unspecified nature or uncertain behavior (20 sources) Benign neoplasm of pancreas; Translations: [Neoplasm of unspecified behavior of digestive system] Episodic Nutritional deficiencies (20 sources) Vitamin D deficiency; Translations: [Vitamin D deficiency, unspecified] Onset: 10-01-2021 Chronic Occlusion or stenosis of precerebral arteries (20 sources) Bilateral stenosis of carotid arteries; Translations: [Occlusion and stenosis of bilateral carotid arteries] Onset: 12-30-2016 Chronic Other and unspecified benign neoplasm (4 sources) [...] hyperplasia, unspecified] Onset: 12-18-2020 01-29-2021 Chronic Other female genital disorders (12 sources) Polyp of corpus uteri; Translations: [Polyp of corpus uteri] 11-30-2020 Episodic Other liver diseases (1 source) Steatosis of liver; Translations: [Fatty (change of) liver, not elsewhere classified] Chronic Other liver diseases (4 sources) Non-alcoholic fatty liver; Translations: [Fatty (change of) liver, not elsewhere classified] Chronic Other liver diseases (12 sources) Fatty (change of) liver, not elsewhere classified; Translations: [Other chronic nonalcoholic liver disease] Chronic Other liver diseases (20 sources) Hepatic fibrosis; Translations: [Liver fibrosis] Onset: 01-16-2022 01-16-2022 Chronic Other liver diseases (20 sources) Alkaline phosphatase raised; Translations: [Abnormal levels of other serum enzymes] Onset: 12-05-2021 Episodic Other liver diseases (1 source) Alkaline phosphatase level - finding; Translations: [Abnormal levels of other serum enzymes] Episodic Other liver diseases (1 source) Gamma-glutamyl transferase raised; Translations: [Abnormal levels of other serum enzymes] Episodic Other liver diseases (6 sources) Abnormal levels of other serum enzymes; Translations: [Other nonspecific abnormal serum enzyme levels] Episodic Other lower respiratory disease (1 source) Cough; Translations: [Acute cough] 03-21-2023 Episodic Other non-traumatic joint disorders (3 sources) Pain in right knee; Translations: [Pain in joint, lower leg] Episodic Other non-traumatic joint disorders (4 sources) Pain in right shoulder; Translations: [Pain in joint, shoulder region] 08-25-2023 Episodic Other nutritional; endocrine; and metabolic disorders (20 sources) Simple obesity ; Translations: [Other obesity due to excess calories] Onset: 08-31-2015 01-29-2021 Chronic Other nutritional; endocrine; and metabolic disorders (20 sources) Obese class II; Translations: [Obesity, unspecified] Onset: 08-31-2015 Chronic Other nutritional; endocrine; and metabolic disorders (13 sources) Obese class I; Translations: [Obesity, unspecified] Onset: 08-31-2015 11-04-2023 Chronic Other upper respiratory infections (1 source) Bacterial sinusitis; Translations: [Chronic sinusitis, unspecified] Chronic Other upper respiratory infections (1 source) Acute upper respiratory infection; Translations: [Acute upper respiratory infection, unspecified] Episodic Pancreatic disorders (not diabetes) (20 sources) Cyst of pancreas; Translations: [Cyst of pancreas] Onset: 11-09-2021 Episodic Prolapse of female genital organs (8 sources) Uterovaginal prolapse; Translations: [Uterovaginal prolapse, unspecified] Onset: 11-17-2024 11-10-2023 Chronic Comment on above: plan TVHBS combo juan carlos e with Riddhi. grade IV uterine prolapse Spondylosis; intervertebral disc disorders; other back problems (1 source) Degeneration of cervical intervertebral disc; Translations: [Other cervical disc degeneration, unspecified cervical region] 08-26-2023 Chronic Spondylosis; intervertebral disc disorders; other back problems (6 sources) Chronic low back pain; Translations: [Chronic midline low back pain without sciatica] Episodic Past or Other Problems Problem Classification Problem Date Documented Da te Episodic/Chronic Abdominal pain (12 sources) Right upper quadrant pain; Translations: [Right upper quadrant pain] Onset: 02-14-2014 Resolved: 12-30-2016 12-30-2016 Episodic Administrative/social admission (10 sources) Advance directive discussed with patient; Translations: [Other specified counseling] Onset: 11-04-2023 11-04-2023 Episodic Biliary tract disease (12 sources) Leakage of bile; Translations: [Disease of biliary tract, unspecified] Onset: 04-01-2014 Resolved: 12-30-2016 12-30-2016 Chronic Diabetes mellitus without complication (20 sources) Hyperglycemia; Translations: [Impaired fasting glucose] Onset: 10-02-2021 Episodic Heart valve disorders (1 source) Cardiac murmur, unspecified; Translations: [Cardiac murmur, unspecified] Onset: 05-28-2024 Episodic Nutritional deficiencies (20 sources) Serum vitamin B12 low; Translations: [Deficiency of other specified B group vitamins] Onset: 10-02-2021 Episodic Other and unspecified benign neoplasm (20 sources) Adenomatous polyp of rectum; Translations: [Benign neoplasm of rectum] Onset: 07-17-2020 Episodic Other liver diseases (20 sources) Increased vitamin B; Translations: [Abnormal levels of other serum enzymes] Onset: 10-02-2021 Episodic Other screening for suspected conditions (not mental disorders or infectious disease) (20 sources) Patient encounter status; Translations: [Encounter for screening for diabetes mellitus] Onset: 10-01-2021 Episodic Residual codes; unclassified (1 source) Asymptomatic menopausal state; Translations: [Asymptomatic menopausal state] Onset: 10-18-2024 Episodic Screening and history of mental health and substance abuse codes (20 sources) Ex-smoker; Translations: [Personal history of nicotine dependence] Onset: 05-11-2013 Episodic Results Test Name Value Interpretation Reference Range Facility Basic Metabolic Profile (BMP )on 03-22-2025 BUN/CRE 23.5 RATIO High 10-20 [facility] Comment on above: Order Comment: CAMILO CLEMONS WANTED [facility] DONE ONLY pre op for prolapse Performed By: #### L 100.0100, L500.2500 #### [facility] [address] [place], [address] Calcium [Mass/Vol] 9.5 mg/dL Normal 7.6-11.0 [facility] Comment on above: Order Comment: CAMILO CLEMONS WANTED [facility] DONE ONLY pre op for prolapse Performed By: #### L 100.0100, L500.2500 #### [facility] [address] [place], [address] Chloride [Moles/Vol] 106 mmol/L Normal 98-108 [facility] Comment on above: Order Comment: CAMILO CLEMONS WANTED [facility] DONE ONLY pre op for prolapse Performed By: #### L 100.0100, L500.2500 #### [facility] [address] [place], [address] CO2 [Moles/Vol] 25.6 mmol/L Normal 21.0-32.0 [facility] Comment on above: Order Comment: CAMILO CLEMONS WANTED [facility] DONE ONLY pre op for prolapse Performed By: #### L 100.0100, L500.2500 #### [facility] [address] [place], [address] Creatinine [Mass/Vol] 0.80 mg/dL Normal 0.70-1.20 [facility] Comment on above: Order Comment: CAMILO CLEMONS WANTED [facility] DONE ONLY pre op for prolapse Performed By: #### L 100.0100, L500.2500 #### [facility] [address] [place], [address] GAP 11 Normal 5-15 [facility] Comment on above: Order Comment: CAMILO CLEMONS WANTED [facility] DONE ONLY pre op for prolapse Performed By: #### L 100.0100, L500.2500 #### [facility] [address] [place], [address] GFR/1.73 sq M.predicted among non-blacks MDRD (S/P/Bld) [Vol rate/Area] 81 mL/min/{1.73_m2} Normal >60 [facility] Comment on above: Order Comment: CAMILO CLEMONS WANTED [facility] DONE ONLY pre op for prolapse Result Comment: mL/m in/1.73m2 CKD-EPI Creatinine Equation (2020) Performed By: #### L 100.0100, L500.2500 #### [facility] [address] [place], [address] Glucose [Mass/Vol] 68 mg/dL Low 70-99 [facility] Comment on above: Order Comment: CAMILO CLEMONS WANTED [facility] DONE ONLY pre op for prolapse Performed By: #### L 100.0100, L500.2500 #### [facility] [address] [place], [address] Potassium [Moles/Vol] 4.1 mmol/L Normal 3.3-5.1 [facility] Comment on above: Order Comment: CAMILO CLEMONS WANTED [facility] DONE ONLY pre op for prolapse Performed By: #### L 100.0100, L500.2500 #### [facility] [address] [place], [address] Sodium [Moles/Vol] 143 mmol/L Normal 133-145 [facility] Comment on above: Order Comment: CAMILO CLEMONS WANTED [facility] DONE ONLY pre op for prolapse Performed By: #### L 100.0100, L500.2500 #### [facility] [address] [place], [address] Urea nitrogen [Mass/Vol] 19 mg/dL Normal 4-19 [facility] Comment on above: Order Comment: CAMILO NT WANTED [facility] DONE ONLY pre op for prolapse Performed By: #### L 100.0100, L500.2500 #### [facility] [address] [place], [address] CBC W/Diff, Automatedon 09-0 9-2024 Absolute Lymph 1.95 X10 3/uL Normal 0.83-4.51 [facility] Comment on above: Order Comment: Comme nts: pre op for prolapse Performed By: #### L 100.0100, L500.2500 #### [facility] [address] [place], [address] Absolute Neut 2.5 X10 3/uL Normal 2.0-7.7 [facility] Comment on above: Order Comment: Commyahir nts: pre op for prolapse Performed By: #### L 100.0100, L500.2500 #### [facility] [address] [place], [address] Basophils/100 WBC (Bld) 0.6 % Normal 0-1 [facility] Comment on above: Order Comment: Comme nts: pre op for prolapse Performed By: #### L 100.0100, L500.2500 #### [facility] [address] [place], [address] Eosinophils/100 WBC (Bld) 2.3 % Normal 0-5 [facility] Comment on above: Order Comment: Comme nts: pre op for prolapse Performed By: #### L 100.0100, L500.2500 #### [facility] [address] [place], [address] Erythrocyte distribution width (RBC) [Ratio] 12.8 % Normal 11.6-14.6 [facility] Comment on above: Order Comment: Comme nts: pre op for prolapse Performed By: #### L 100.0100, L500.2500 #### [facility] [address] [place] [place], [address] Hematocrit (Bld) [Volume fraction] 39.7 % Normal 37-47 [facility] Comment on above: Order Comment: Comme nts: pre op for prolapse Performed By: #### L 100.0100, L500.2500 #### [facility] [address] [place], [address] Hemoglobin (Bld) [Mass/Vol] 13.2 g/dL Normal 12.0-15.0 [facility] Comment on above: Order Comment: Comme nts: pre op for prolapse Performed By: #### L 100.0100, L500.2500 #### [facility] [address] [place], [address] IG% 0.200 Normal 0.0-0.9 [facility] Comment on above: Order Comment: Comme nts: pre op for prolapse Result Comment: IG% - Immature Granulocytes (promyelocytes, myelocytes and metamyelocytes) > 1% indicates that a LEFT SHIFT is Present. Performed By: #### L 100.0100, L500.2500 #### [facility] [address] [place], [address] Lymphocytes/100 WBC (Bld) 38.2 % Normal 19-41 [facility] Comment on above: Order Comment: Comme nts: pre op for prolapse Performed By: #### L 100.0100, L500.2500 #### [facility] [address] [place], [address] MCH (RBC) [Entitic mass] 33.3 pg High 27.0-32.0 [facility] Comment on above: Order Comment: Comme nts: pre op for prolapse Performed By: #### L 100.0100, L500.2500 #### [facility] [address] [place], [address] MCHC (RBC) [Mass/Vol] 33.2 g/dL Normal 32-36 [facility] Comment on above: Order Comment: Comme nts: pre op for prolapse Performed By: #### L 100.0100, L500.2500 #### [facility] [address] [place], [address] MCV (RBC) [Entitic vol] 100.3 fL High 81-99 [facility] Comment on above: Order Comment: Comme nts: pre op for prolapse Performed By: #### L 100.0100, L500.2500 #### [facility] [address] [place], [address] Monocytes/100 WBC (Bld) 10.2 % High 0-10 [facility] Comment on above: Order Comment: Comme nts: pre op for prolapse Performed By: #### L 100.0100, L500.2500 #### [facility] [address] [place], [address] Neutrophils/100 WBC (Bld) 48.5 % Normal 47-70 [facility] Comment on above: Order Comment: Comme nts: pre op for prolapse Performed By: #### L 100.0100, L500.2500 #### [facility] [address] [place], [address] Nucleated RBC (Bld) [#/Vol] 0 10*3/uL Normal 0-5 [facility] Comment on above: Order Comment: Comme nts: pre op for prolapse Performed By: #### L 100.0100, L500.2500 #### [facility] [address] [place], [address] Platelet mean volume (Bld) [Entitic vol] 11.8 fL Normal 6.2-12.0 [facility] Comment on above: Order Comment: Comme nts: pre op for prolapse Performed By: #### L 100.0100, L500.2500 #### [facility] [address] [place], [address] Platelets (Bld) [#/Vol] 177 10*3/uL Normal 150-450 [facility] Comment on above: Order Comment: Comme nts: pre op for prolapse Performed By: #### L 100.0100, L500.2500 #### [facility] [address] [place], [address] RBC (Bld) [#/Vol] 3.96 10*6/uL Low 4.2-5.4 [facility] Comment on above: Order Comment: Comme nts: pre op for prolapse Performed By: #### L 100.0100, L500.2500 #### [facility] [address] [place], [address] RDW SD 46.5 fl High 35.1-43.9 [facility] Comment on above: Order Comment: Comme nts: pre op for prolapse Performed By: #### L 100.0100, L500.2500 #### [facility] [address] [place], [address] WBC (Bld) [#/Vol] 5.1 10*3/uL Normal 4.4-11.0 [facility] Comment on above: Order Comment: Comme nts: pre op for prolapse Performed By: #### L 100.0100, L500.2500 #### [facility] [address] [place], [address] Pelvic (Non )on 10-13 Pelvic (Non ) [facility] [address] [place] [address] Pelvic (Non ) MR#: [id number] Acct: [id number] Name: ISABEL SAHNI Yu Rep #: [id number] : 1955 F 69 From: Riley Brown MD PCP: Dr. Paula Barrera DO Status: REG CLI Study: Pelvic (Non ) Date of Exam: 11/02/24 Exam# [id number] Ordering Dr: Ina Leon PROCEDURE: PELVIC (NON ) 11/02/2024 REASON FOR EXAM: UTERINE PROLAPSE TECHNIQUE: Transabdominal pelvic ultrasound FINDINGS: Measurements: Uterus: 9.3 x 4.2 x 3.4 with a volume of mL Endometrial Thickness: 4 mm Right Ovary: 2.1 x 1.6 x 1.6 with a volume of mL. Left Ovary: 2.7 x 2.3 x 1.4 with a volume of mL. Uterus: Slightly retroflexed. Normal echogenicity. Endometrium: Unremarkable. Right ovary: Normal size and echotexture. Left ovary: Normal size and echotexture. Other: US/Pelvic (Non ) IMPRESSION: NORMAL TRANSABDOMINAL PELVIC ULTRASOUND. Reading Location: [facility] CC: Dr. Paula Barrera DO; Dr. Ina Leon MD Hair Boiler Operator: Signed Normal [facility] Branch Library Clerk Office Visit Reporton 10-29-2024 Branch Library Clerk Office Visit Report [facility] [address], [address] [place] [address] OFFICE VISIT Date of Service: 10/29/24 MR#: [id number] Acct: [id number] Name: ISABEL SAHNI Rep #: [id number] : 1955 Provider: Dr. Ina cain MD Age/Sex: 69/F Location: [facility] [place] Status: Signed Intake Vital Signs 09/02/23 11:06 10/29/24 10:40 Height 5 ft 5 in 5 ft 5 in Weight: 208 lb 4 oz BMI 34.6 BP 176/88 H Intake Visit Reasons: PROLAPSE UTERUS-HYSTO CONSULT (cim) Public Speaking Instructor Required: No Is patient in pain?: No Allergies aspirin Allergy (Verified 10/29/24 10:42) Itching codeine Allergy (Verified 10/29/24 10:42) swells up hydrocodone Allergy (Verified 10/29/24 10:42) diaphoretic, trouble breathing ibuprofen Allergy (Verified 10/29/24 10:42) Hives lisinopril Adverse Reaction (Intermediate, Verified 10/29/24 10:42) cough Medications ???Medication ???Instructions ???Recorded ???Confirmed ???Type losartan 100 mg tablet 100 mg PO DAILY 10/29/21 10/29/24 History hydrochlorothiazide 12.5 mg capsule cap 02/05/22 10/29/24 History atorvastatin 40 mg tablet 40 mg PO QHS 10/21/22 10/29/24 His tory metformin 500 mg tablet 500 mg PO BID 90 days #180 tabs 10/29/24 Rx pantoprazole 40 mg tablet,delayed 40 mg PO DAILY 1 month #30 tabs 0 11/18/23 10/29/24 Rx release ursodiol 300 mg capsule 300 mg PO BID liver fibrosis #180 01/08/24 10/29/24 Rx caps Is last menstrual period known: No Post menopausal: Yes Patient : No : No PFSH Medical History IPMN (intraductal papillary mucinous neoplasm) NAFLD (nonalcoholic fatty liver disease) Gall stones Carotid stenosis Elevated alkaline phosphatase level Wears glasses Wears dentures High cholesterol Gastric reflux Former smoker Leg cramps GERD (gastroesophageal reflux disease) Hyperlipidemia Hypertension Surgical History History of esophagogastroduodenoscopy (EGD) ( 02/09/18) History of left knee surgery Hx laparoscopic cholecystectomy Family History Mother Diabetes Hypertension Cancer unknown Father Cancer unknown Sister Cancer Brain Brother Cancer unknown Social History (Updated 10/29/24 @ 10:50 by Edith Foote) number of children: 2 current occupational status: employed current occupation: [employer] Smoking Status: Former smoker alcohol intake: never substance use type: does not use what type of physical activity do you participate in: none additional social history: - Tony HPI PROLAPSE UTERUS-HYSTO CONSULT ([facility]) Details: ISABEL SAHNI is a 69 year old who presents for vaginal prolapse and uterine prolapse. she has felt a bulge and feels it going in and out over the last few months increasing. she feels it when she wipes, feels increased discharge, does go in when she stands up. Female Reproductive History Questions: metorrhagia: No, dyspareunia: No and PCB: No Menopausal Symptoms: No night sweats History 2 Elective abortions Hx Para 2 Spontaneous abortions Hx # Term Pregnancies Ectopic pregnancies Hx # Pregnancies Multiple births # of living children 1 Past Pregnancies Del. Date Name GA/Weeks Outcome Route Bth Weight Infant Gen Labor Lgth Anesthesia Del Locatn Provider FOB Unknown 1978 Tony Unknown 1979 Charla () ROS Const Constitutional: Reports system reviewed and no additional complaints, except as documented; Denies fatigue, headache(s) or night sweats ENT ENT: Reports system reviewed and no additional complaints, except as documented Cardio Card: Denies chest pain Resp Resp: Denies cough or dyspnea GI GI: Denies abdominal pain, bloating, change in stool character, constipation, fecal incontinence, nausea or vomiting : Reports prolapse symptoms, urinary incontinence and vaginal dryness; Denies nipple discharge, pelvic pain, sexual dysfunction, urinary frequency, urinary urgency, vaginal discharge, vaginal odor or vaginal pruritus Musc Musc: Reports back pain; Denies arthralgias or muscle weakness Skin Skin/Breast: Denies alopecia, change in hair, dry skin, breast mass, breast pain, breast skin changes or nipple discharge Neuro Neuro: Reports system reviewed and no additional complaints, except as documented Psych Psych: Denies anxiety or depression Endo Endo: Denies cold intolerance, excessive sweating, heat intolerance or polydipsia Brenton/Lymph Hematologic/Lymphatic: Denies easy bleeding, Denies easy bruising and Denies lymphadenopathy Exam Const General: cooperative, healthy appearing, comfortable, no (more content not included)... Normal [facility] Bone density reportOrdered B y: Ritesh Cartwright on 10-12-2024 Study report Skeletal system DXA [facility] [address] [place] [address] Dexa Bone Density Study MR#: [id number] Acct: [id number] Name: ISABEL SAHNI Rep #: [id number] : 1955 F 69 From: Adalberto Cartwright MD PCP: Dr. Paula Barrera, DO Status: RE G CLI Study:Dexa Bone Density Study Date of Exam: 10/12/24 Exam# [id number] Ordering Dr: López Barrera DO PROCEDURE: DEXA BONE DENSITY STUDY 10/12/2024 REASON FOR EXAM: F, age 69 y/o . Postmenopausal. TECHNIQUE: DXA scan of the lumbar spine and left hip, using make and model. REFERENCE LINKS: [facility] Adult Positions COMPARISON: None FINDINGS: BMD and T-SCORES Lumbar spine: 1.174 g/cm2, T-Score 1.4 L1 through L4 Left femoral neck: 0.780 g/cm2, T-Score -0.6 Femoral neck comparison data not recommended for monitoring change. Left total hip: 0.994 g/cm2, T-Score 1.8 Right femoral neck: 0.836 g/cm2, T-Score -0.1 Femoral neck comparison data not recommended for monitoring change. Right total hip: 1.02 findings g/cm2, T-Score 0.7 Change from prior: BD/Dexa Bone Density Study IMPRESSION: NORMAL T-SCORES. Recommend follow-up as clinically warranted. Reading Location: [id number] CC: Dr. Paula Barrera DO ~ Hair Boiler Operator: Signed [facility] Dexa Bone Density Studyon Dexa Bone Density Study [facility] [address] [place], [place] [address] Dexa Bone Density Study MR#: [id number] Acct: [id number] Name: ISABEL SAHNI Rep #: [id number] : 1955 F 69 From: Ritesh fry MD PCP: Dr. Paula Barrera DO Status: REG CLI Study: Dexa Bone Density Study Date of Exam: 10/12/24 Exam# [id number] Ordering Dr: Paula Barrera DO PROCEDURE: DEXA BONE DENSITY STUDY 10/12/2024 REASON FOR EXAM: F, age 69 y/o . Postmenopausal. TECHNIQUE: DXA scan of the lumbar spine and left hip, using make and model. REFERENCE LINKS: [facility] Adult Positions COMPARISON: None FINDINGS: BMD and T-SCORES Lumbar spine: 1.174 g/cm2, T-Score 1.4 L1 through L4 Left femoral neck: 0.780 g/cm2, T-Score -0.6 Femoral neck comparison data not recommended for monitoring change. Left total hip: 0.994 g/cm2, T-Score 1.8 Right femoral neck: 0.836 g/cm2, T-Score -0.1 Femoral neck comparison data not recommended for monitoring change. Right total hip: 1.02 findings g/cm2, T-Score 0.7 Change from prior: BD/Dexa Bone Density Study IMPRESSION: NORMAL T-SCORES. Recommend follow-up as clinically warranted. Reading Location: [id number] CC: Dr. Paula Barrera DO Hair Boiler Operator: Signed Normal [facility] Abdomen/Pelvis WITH Contrast on 09-27-2024 Abdomen/Pelvis WITH Contrast [facility] [address] [place] [address] Abdomen/Pelvis WITH Contrast MR#: [id number] Acct: [id number] Name: ISABEL SAHNI Rep #: [id number] : 1955 F 69 From: Ford Pate MD PCP: Dr. Paula Barrera DO Status: REG CLI Study: Abdomen/Pelvis WITH Contrast Date of Exam: Exam# [id number] Ordering Dr: Migue Hutchinson MD PROCEDURE: ABDOMEN/PELVIS WITH CONTRAST 09/27/2024 REASON FOR EXAM: PANCRATIC CYST TECHNIQUE: CT abdomen and pelvis was performed with IV contrast. Multiplanar reformats were generated. PATIENT PREPARATION: Per protocol ORAL CONTRAST TYPE: Administered, however type and volume information is not provided. CONTRAST: Isovue-300 VOLUME: 98ML One or more dose reduction techniques were used (e.g., Automated exposure control, adjustment of the mA and/or kV according to patient size, use of iterative reconstruction technique. RADIATION DOSE SUMMARY: CTDlvol: 18.23 mGy DLP: 1000.54 mGycm COMPARISON: 08/12/2022. Images only are available for review, the report is not available at the time of dictation.. FINDINGS: Lung bases: Coronary atherosclerosis and/or stents. Aortic annular calcification.. Liver: Unremarkable. Spleen: Unremarkable. Gallbladder: Cholecystectomy. A small cystic focus immediately posterior to and abutting the common hepatic duct/CBD is grossly unchanged, roughly 1.6 cm, much better seen previously. Pancreas: Unremarkable. Punctate T2 bright presumed cysts seen on MRCP 08/12/2022 are probably too small to visualize by CT. No ductal dilatation. Adrenals: Unremarkable. Kidneys: Indeterminate exophytic 2.2 cm posterior right lower pole renal lesion was present previously and was partially imaged on many sequences, questionably minimally enlarged from 1.7 cm previously although only imaged in its entirety in the coronal plane at that time. Bowel: Mild diverticulosis. Appendix not identified. Lymph nodes: Unremarkable. Vasculature: Atherosclerosis. Mild multifocal ectasia of the infrarenal abdominal aorta.. Peritoneum: Trace pelvic free fluid. Bladder: Bladder wall thickening slightly disproportionate to underdistention. Reproductive Organs: 2.1 cm left adnexal cyst, incompletely characterized by CT. Body Wall: Small fat containing left femoral hernia. Small fat containing infraumbilical hernia to the right of midline. Tiny fat containing umbilical hernia.. Bones: Demineralization. Multilevel spondylosis. Variable spinal canal stenoses up to at least moderate/severe at L2-L3. Lumbar levoscoliosis. Fiindings suggestive of diffuse idiopathic skeletal hyperostosis. Nonspecific 1.2 cm faintly sclerotic lesion in the right iliac bone. CT/Abdomen/Pelvis WITH Contrast IMPRESSION: 1. Correlate for mild cystitis. 2. No pancreatic cyst or ductal dilatation is evident by CT. A 1.7 cm cystic structure posterior to the and abutting the common hepatic duct/CBD is grossly unchanged by CT since MRCP of 08/12/2022, but was much better evaluated previously. 3. Possible minimal enlargement of an indeterminate 2.2 cm right renal lesion, possible hemorrhagic/proteinaceous cyst however this is not definite. Recommend targeted renal ultrasound and consideration of multiphase renal protocol CT or MRI with and without contrast if this does not appear definitely cystic. 4. 2.1 cm left adnexal cyst incompletely characterized by CT. Recommend pelvic ultrasound. 5. 1.2 cm faintly sclerotic lesion in the right iliac bone, nonspecific in the absence of known malignancy, possible faintly sclerotic bone island. Correlate with medical history and follow-up as indicated. 6. Trace pelvic free fluid, nonspecific but unexpected in a presumed postmenopausal female. 7. Additional description as above. Reading Location: [id number] CC: Dr. Paula Barrera DO; Dr. Migue Hutchinson MD Hair Boiler Operator: Signed Normal [facility] Echo Completeon 05-03-2024 Echo Complete [facility] [address] [place] [address] Echo Complete 05/03/24 1346 MR#: [id number] Acct: [id number] Name: ISABEL SAHNI Rep #: [id number] : 1955 68 From: David Lay MD Attending Dr: Dr. Paula Barrera DO Status: R EG CLI Ordering Dr: Paula Barrera DO Date: 05/03/24 Location: [facility] Sex: F C Admitted: Reason For Study: MURMUR Procedure This was a 2D Doppler, Color Flow transthoracic echocardiogram. Exam performed in department. Left Ventricle Normal size and thickness. The left ventricular ejection fraction is 70 %. Normal diastology for age. Right Ventricle Normal right ventricle. Atria The left atrium is mildly enlarged. Normal right atrium. Mitral Valve Trivial mitral valve insufficiency. Tricuspid Valve Trivial tricuspid valve insufficiency. Right ventricular systolic pressure estimated to be 37 mmHg. Aortic Valve There is no aortic stenosis. No aortic valve insufficiency. Pulmonic Valve The pulmonic valve is not well visualized. Great Vessels Normal sized aortic root. Pericardium/Pleural No pericardial effusion. MMode/2D Measurements Calculations LVIDd: 4.4 cm IVSd: 0.81 cm LVOT diam: 2.0 cm LVIDs: 2.5 cm LVPWd: 1.0 cm LVOT area: 3.2 cm2 RVDd: 3.3 cm FS: 42.5 % asc Aorta Diam: 3.5 cm LAV(MOD-bp): 48.1 ml LVAd ap4: 20.8 cm2 LAV(MOD-bp) Indexed: 24.5 ml/m2 LVLd ap4: 7.5 cm LAV(MOD-sp2): 49.2 ml EDV(MOD-sp4): 49.5 ml LAV(MOD-sp4): 43.4 ml EDV(sp4-el): 49.0 ml LVAs ap4: 11.6 cm2 LVLs ap4: 6.5 cm ESV(MOD-sp4): 18.1 ml ESV(sp4-el): 17.5 ml EF(MOD-sp4): 63.4 % EF(sp4-el): 64.3 % LVAd ap2: 19.9 cm2 SV(MOD-sp4): 31.4 ml SV(MOD-sp2): 29.8 ml LVLd ap2: 7.1 cm EDV(MOD-sp2): 46.7 ml EDV(sp2-el): 47.4 ml LVAs ap2: 10.7 cm2 LVLs ap2: 5.9 cm ESV(MOD-sp2): 16.9 ml ESV(sp2-el): 16.5 ml EF(MOD-sp2): 63.8 % SV(sp4-el): 31.5 ml Ao sinus diam: 3.[address] Junction: 2.5 cm LA dimension(2D): 4.3 cm LA A4 area: 16.7 cm2 RA A4 area: 10.6 cm2 TAPSE: 2.2 cm Time Measurements MV dec time: 0.30 sec Doppler Measurements Calculations MV E max girish: 77.4 cm/sec Lat Peak E' Girish: 11.2 cm/sec Med Peak E' Girish: 8.6 cm/sec MV A max girish: 84.5 cm/sec E/E' lat: 6.9 E/E' med: 9.0 MV E/A: 0.92 MV dec slope: 257.2 cm/sec2 Ao V2 max: 167.2 cm/sec LV V1 max: 113.7 cm/sec Ao max P.2 mmHg LV V1 max P.2 mmHg Ao V2 mean: 107.0 cm/sec LV V1 mean P.7 mmHg Ao mean P.0 mmHg LV V1 mean: 78.9 cm/sec Ao V2 VTI: 31.2 cm LV V1 VTI: 25.2 cm AV (velocity ratio): 0.81 JOHNATHON(I,D): 2.6 cm2 JOHNATHON(V,D): 2.2 cm2 SV(LVOT): 80.6 ml PA V2 max: 105.4 cm/sec TR max girish: 232.3 cm/sec PA max PG (full): 2.1 mmHg TR max P.6 mmHg ECHO/Echo Complete Interpretation Summary The left ventricular ejection fraction is 70 %. Right ventricular systolic pressure estimated to be 37 mmHg. Incidental finding of hepatic cyst. Consider ultrasound liver for further evaluation. Ordering Physician: Paula Barrera Referring Physician: Paula Barrera Performed By: Julia Culp RDCS 05/04/24833 Date David Lay MD CC: Dr. Paula Barrera DO Date Dictated: 05/03/24 1346 Date Transcribed: 05/04/24833 Hair Boiler Operator: Signed Normal [facility] Carotid Duplex Ultrasoundon 04-20-2024 Carotid Duplex Ultrasound [facility] [address] [place] [address] Carotid Duplex Ultrasound 04/20/24 1304 MR#: [id number] Acct: [id number] Name: ISABEL SAHNI Rep #: [id number] : 1955 68 From: Alonzo Baker MD Attending Dr: Dr. Paula Barrera DO Status: R EG CLI Ordering Dr: Paula Barrera DO Date: 04/20/24 Location: [facility] Sex: F C Admitted: Reason For Study: Carotid stenosis Rt. Velocities/BP Lt. Velocities/BP Prox CCA 141.2/18.8 cm/sec. Prox CCA 102.8/18.8 cm/sec. Mid CCA 86.4/17 cm/sec. Mid CCA 93.7/22.5 cm/sec. Dist CCA 86.4/20.6 cm/sec. Dist CCA 93.7/22.5 cm/sec. Prox ICA 66.3/17.9 cm/sec. Prox ICA 56.4/19 cm/sec. Mid ICA 74/22.3 cm/sec. Mid ICA 85/32.2 cm/sec. Dist ICA 94.9/27.8 cm/sec. Dist ICA 96.1/27.4 cm/sec. Rt. ICA/CCA = 1.10. Lt. ICA/CCA = 1.03. Prox ECA 137.5/11.5 cm/sec. Prox ECA 95.5/11.5 cm/sec. Rt. Vert. 45.4/11.3 cm/sec. Lt. Vert. 41.9/11.6 cm/sec. Right Extracranial There is homogeneous, smooth atherosclerotic plaque noted in the right common carotid artery. There is heterogeneous, irregular atherosclerotic plaque noted in the right internal carotid artery. There is homogeneous, smooth atherosclerotic plaque noted in the right external carotid artery. Antegrade flow is noted in the right vertebral artery. Left Extracranial There is intimal thickening but no significant atherosclerotic plaque noted in the left common carotid artery. There is homogeneous, smooth atherosclerotic plaque noted in the left internal carotid artery. There is intimal thickening but no significant atherosclerotic plaque noted in the left external carotid artery. Antegrade flow is noted in the left vertebral artery. Procedure Carotid Duplex [id number]. This is a Carotid Duplex examination using B-mode, color flow and specral Doppler. Exam performed in department. VL/Carotid Duplex Ultrasound Interpretation Summary Mild (<50%) stenosis right extracranial internal carotid. Mild (<50%) stenosis left extracranial internal carotid. Patent and antegrade vertebrals bilaterally. Ordering Physician: Palua Barrera Referring Physician: Paula Barrera Performed By: Tiffanie Ortega RVT 04/20/241601 Date Alonzo Baker MD CC: Dr. Paula Barrera DO Date Dictated: 04/20/241303 Date Transcribed: 04/20/241601 Hair Boiler Operator: Signed Normal [facility] CBC W Auto Differential pane l (Bld)on 11-04-2023 Basophils (Bld) [#/Vol] 0.03 10*3/uL [facility] Basophils/100 WBC (Bld) 0.7 % [facility] Differential cell count method Nom (Bld) Auto [facility] Eosinophils (Bld) [#/Vol] 0.08 10*3/uL [facility] Eosinophils/100 WBC (Bld) 1.9 % [facility] Erythrocyte distribution width (RBC) [Ratio] 12.3 % 11.5 - 15.0 % [facility] Hematocrit (Bld) [Volume fraction] 43.3 % 36.0 - 46.0 % [facility] Hemoglobin (Bld) [Mass/Vol] 14.5 g/dL 11.5 - 15.5 g/dL [facility] Immature granulocytes (Bld) [#/Vol] [facility] Immature granulocytes/100 WBC (Bld) 0.2 % [facility] Lymphocytes (Bld) [#/Vol] 1.75 10*3/uL [facility] Lymphocytes/100 WBC (Bld) 42.6 % [facility] MCH (RBC) [Entitic mass] 32.8 pg 26.0 - 34.0 pg [facility] MCHC (RBC) [Mass/Vol] 33.5 g/dL 30.5 - 36.0 g/dL [facility] MCV (RBC) [Entitic vol] 98.0 fL 80.0 - 100.0 fL [facility] Monocytes (Bld) [#/Vol] 0.39 10*3/uL NINF [facility] Monocytes/100 WBC (Bld) 9.5 % [facility] Neutrophils (Bld) [#/Vol] 1.85 10*3/uL [facility] Neutrophils/100 WBC (Bld) 45.1 % [facility] Nucleated RBC (Bld) [#/Vol] NINF [facility] Nucleated RBC/100 WBC (Bld) [Ratio] 0.0 % /100 WBC [facility] Platelet mean volume (Bld) [Entitic vol] 12.2 fL 9.0 - 12.7 fL [facility] Platelets (Bld) [#/Vol] 192 10*3/uL [facility] RBC (Bld) [#/Vol] 4.42 10*6/uL 3.90 - 5.2 0 m/uL [facility] WBC (Bld) [#/Vol] 4.11 10*3/uL [facility] HbA1c (Bld)on 11-04-2023 Average glucose Estimated from glycated hemoglobin (Bld) [Mass/Vol] 114 mg/dL [facility] Comment on above: eAG: (Estimated aver age glucose) is a calculated value from HgbA1c and is cash posting representative of the average blood glucose level in the last 2-3 month period. HbA1c (Bld) [Mass fraction] 5.6 % 4.3 - 5.6 % [facility] Comment on above: [place] Diabetes As sociation guidelines indicate that patients with HgbA1c in the range 5.7-6.4% are at increased risk for development of diabetes, and intervention by lifestyle modification may be beneficial. HgbA1c greater or equal to 6.5% is considered diagnostic of diabetes. [facility] Urinalysis complete panel (U )on 11-04-2023 Bacteria LM.HPF (Urine sed) [#/Area] Negative Negative /HPF [facility] Bilirubin Ql (U) Negative Negative [facility] Clarity (Unsp spec) Clear Clear [facility] Color (U) Yellow Yellow [facility] Epithelial cells LM.HPF (Urine sed) [#/Area] Few /HPF [facility] Glucose Test strip (U) [Mass/Vol] Negative Negative [facility] Hemoglobin Ql (U) Negative Negative [facility] Hyaline casts (Urine sed) [#/Area] 0 /[LPF] 0 /LPF [facility] Ketones Ql (U) Negative Negative [facility] Leukocyte esterase Test strip Ql (U) Negative Negative [facility] Nitrite Ql (U) Negative Negative [facility] pH (U) 6.5 [pH] NINF - 8.5 [facility] Protein (U) [Mass/Vol] Negative Negative [facility] RBC LM.HPF (Urine sed) [#/Area] 0-2 /HPF 0-2 /HPF [facility] Specific gravity (U) [Rel density] 1.017 1.005 - 1.030 [facility] Urobilinogen Ql (U) 1.0 EU/dL 0.2-1.0 EU/dL [facility] WBC LM.HPF (Urine sed) [#/Area] 0-5 /HPF 0-5 /HPF [facility] This test was destiny jimenes and its performance characteristics determined by [facility]'s [facility] [place] (-[facility]). It has not been cleared or approved by the FDA. -[facility] is regulated under CLIA as qualified to perform high-complexity testing. This test is used for clinical purposes. It should not be regarded as investigational or for research. [facility] XR Cervical spine AP and Lat eral and obliqueon 08-25-2023 [facility] Absolute lymphocyte countOrd ered By: Migue Hutchinson on 08-12-2023 Lymphocytes Auto (Unsp spec) [#/Vol] 1.78 10*3/uL 0.83-4.51 [facility] Alpha fetoprotein measuremen t as tumor markerOrdered By: Migue Hutchinson on 08-12-2023 AFP.tumor marker [Mass/Vol] 4.0 ng/mL 0.0-9.2 [facility] Comment on above: [facility] El ectrochemiluminescence Immunoassay(ECLIA)Values obtained with different assay methods or kits cannotbe used interchangeably. Results cannot be interpreted asabsolute evidence of the presence or absence of malignantdisease.This test is not interpretable in females.Performed at: [facility] [employer] [address] [id number] Director: Adams Pabon PhD, Phone: [phone] Automated lymphocyte count a s percentage of total leukocytesOrdered By: Migue Hutchinson on 08-12-2023 Lymphocytes/100 WBC Auto (Unsp spec) 37.1 % 19-41 [facility] Basophil percentageOrdered B y: Migue Hutchinson on 08-12-2023 Basophils/100 WBC (Bld) 0.8 % 0-1 [facility] Bilirubin [Mass/Vol] 0.70 mg/dL 0.20-1.00 [facility] Comment on above: For patients on eltr ombopag therapy, use of Dimension Rydal TBIL is not recommended. Chloride [Moles/Vol] 110 mmol/L 98-107 [facility] Cholesterol [Mass/Vol] 193 mg/dL <200 [facility] Comment on above: <200 mg/dL Desirable 200-240 mg/dL Borderline >240 mg/dL High Risk Eosinophils/100 WBC (Bld) 2.1 % 0-5 [facility] Glucose [Mass/Vol] 100 mg/dL 74-106 [facility] Comment on above: Fasting Glucose resu lt from 100 to 125 mg/dL suggests IMPAIRED HOMEOSTASIS per A.D.A. criteria. Hemoglobin (Bld) [Mass/Vol] 13.4 g/dL 12.0-15.0 [facility] Monocytes/100 WBC (Bld) 9.2 % 0-10 [facility] Neutrophils (Bld) [#/Vol] 2.4 10*3/uL 2.0-7.7 [facility] Neutrophils/100 WBC (Bld) 50.4 % 47-70 [facility] Potassium [Moles/Vol] 3.4 mmol/L 3.5-5.1 [facility] Protein [Mass/Vol] 7.1 g/dL 6.4-8.2 [facility] Sodium [Moles/Vol] 143 mmol/L 136-145 [facility] Triglyceride [Mass/Vol] 179 mg/dL <199 [facility] Comment on above: The drugs N-Acetylcy steine and Metamizole may falsely depress this assay.Serum Triglycerides Reference Interval Normal <150 mg/dL Borderline high 150 - 199 mg/dL High 200 - 499 mg/dL Very High > or = 500 mg/dL WBC (Bld) [#/Vol] 4.8 10*3/uL 4.4-11.0 [facility] Determination of erythrocyte mean corpuscular volume (MCV)Ordered By: Migue Hutchinson on 08-12-2023 MCV (RBC) [Entitic vol] 99.3 fL 81-99 [facility] Erythrocyte distribution wid th ratioOrdered By: Migue Hutchinson on 08-12-2023 Erythrocyte distribution width (RBC) [Ratio] 12.2 % 11.6-14.6 [facility] Erythrocyte distribution wid th standard deviationOrdered By: Migue Hutchinson on 08-12-2023 Erythrocyte distribution width (RBC) [Entitic vol] 44.2 fL 35.1-43.9 [facility] Hematocrit Auto (Bld) [Volum e fraction]Ordered By: Migue Hutchinson on 08-12-2023 Hematocrit (Bld) [Volume fraction] 41.6 % 37-47 [facility] High density lipoprotein (HD L) measurementOrdered By: Migue Hutchinson on 08-12-2023 Cholesterol in HDL (Body fld) [Mass/Vol] 54 mg/dL >40 [facility] Comment on above: The drugs N-Acetylcy steine and Metamizole may falsely depress this assay. Reference Range HDL <40 mg/dL Low HDL Cholesterol HDL >or= 60 mg/dL High HDL Cholesterol Immature granulocytes/100 WB C Auto (Bld)Ordered By: Migue Hutchinson on 08-12-2023 Immature granulocytes/100 WBC (Bld) 0.400 % 0.0-0.9 [facility] Comment on above: IG% - Immature Granu locytes (promyelocytes, myelocytes and metamyelocytes) > 1% indicates that a LEFT SHIFT is Present. International normalized rat io (INR) calculationOrdered By: Migue Hutchinson on 08-12-2023 INR Coag (PPP) [Relative time] 0.9 {INR} [facility] Laboratory - Chemistry and C hemistry - challengeOrdered By: Migue Hutchinson on 08-12-2023 Albumin/Globulin [Mass ratio] 0.9 {ratio} 0.9-2.4 [facility] ALP [Catalytic activity/Vol] 116 U/L 45-117 [facility] ALT [Catalytic activity/Vol] 17 U/L 13-56 [facility] CO2 [Moles/Vol] 29.0 mmol/L 21.0-32.0 [facility] Globulin (S) [Mass/Vol] 3.7 g/dL 2.2-4.2 [facility] Urea nitrogen/Creatinine [Mass ratio] 18.6 mg/mg 10-20 [facility] Laboratory - CoagulationOrde red By: Migue Hutchinson on 08-12-2023 PT Coag (PPP) [Time] 12.5 s 11.7-14.9 [facility] Laboratory - Hematology and Cell countsOrdered By: Migue Hutchinson on 08-12-2023 MCH (RBC) [Entitic mass] 32.0 pg 27.0-32.0 [facility] MCHC (RBC) [Mass/Vol] 32.2 g/dL 32-36 [facility] Nucleated RBC/100 WBC (Bld) [Ratio] 0 % 0-5 [facility] Platelets (Bld) [#/Vol] 179 10*3/uL 150-450 [facility] Low density lipoprotein (LDL ) cholesterol measurementOrdered By: Migue Hutchinson on 08-12-2023 Cholesterol in LDL (Body fld) [Moles/Vol] 103 mg/dL 0-130 [facility] No Panel InformationOrdered By: Migue Hutchinson on 08-12-2023 Anti-Nuclear Antibody Screen Negative Negative [facility] Comment on above: Performed at: [address] [id number] Director: Adams Pabon PhD, Phone: [phone] C-Reactive Protein Extended Range < 2.90 mg/L 0.0-3.0 [facility] Comment on above: C-Reactive Protein ( CRP) provides useful information for thediagnosis, therapy and monitoring of inflammatory processesand associated diseases. For the evaluation of Relative Riskfor Cardiovascular Disease, a High Sensitivity CRP (HSCRP)should be ordered. Centromere B Antibody Not Reportable [facility] Estimated GFR (MDRD) Amer 85 mL/min >60 [facility] Comment on above: GFR Calc Estimated GFR (MDRD) Non-Af Amer 70 mL/min >60 [facility] Comment on above: Non- GFR Calc JOCELYNN-1 Antibody Not Reportable [facility] LIVE OUT NANNY Antibody Not Reportable [facility] Platelet mean volume Jason-Ec ker (Bld) [Entitic vol]Ordered By: Migue Hutchinson on 08-12-2023 Platelet mean volume (Bld) [Entitic vol] 12.2 fL 6.2-12.0 [facility] RBC Auto (Bld) [#/Vol]Ordere d By: Migue Hutchinson on 08-12-2023 RBC (Bld) [#/Vol] 4.19 10*6/uL 4.2-5.4 [facility] SS-B IgG antibody assayOrder ed By: Migue Hutchinson on 08-12-2023 Sjogrens syndrome-B extractable nuclear IgG Qn (S) Not Reportable [facility] Serum DNA double strand anti body assay (units/volume)Ordered By: Migue Hutchinson on 08-12-2023 DNA double strand Ab Qn (S) Not Reportable [facility] Serum Scl-70 antibody assay (units/volume)Ordered By: Migue Hutchinson on 08-12-2023 SCL-70 extractable nuclear Ab Qn (S) Not Reportable [facility] Serum or plasma calcium diane urement (mass/volume)Ordered By: Migue Hutchinson on 08-12-2023 Calcium [Mass/Vol] 8.8 mg/dL 8.5-10.1 [facility] Serum or plasma creatinine m easurement (mass/volume)Ordered By: Migue Hutchinson on 08-12-2023 Creatinine [Mass/Vol] 0.86 mg/dL 0.55-1.02 [facility] Comment on above: The validity of the calculated GFR & GFRAA in patients over 70 years has not been determined. Clinical correlation is essential. Serum or plasma urea nitroge n measurement (mass/volume)Ordered By: Migue Hutchinson on 08-12-2023 Urea nitrogen [Mass/Vol] 16 mg/dL 7-18 [facility] Sahni antibody assayOrdered By: Migue Hutchinson on 08-12-2023 Sahni extractable nuclear Ab (S) [Titer] Not Reportable [facility] Thin prep Papanicolaou smear with manual screeningOrdered By: Migue Hutchinson on 08-12-2023 Thin prep Papanicolaou smear with manual screening 3.4 g/dL 3.2-5.0 [facility] Thin prep Papanicolaou smear with manual screening 11 U/L 15-37 [facility] Thin prep Papanicolaou smear with manual screening 4 5-15 [facility] Very low density lipoprotein (VLDL) cholesterol measurementOrdered By: Migue Hutchinson on 08-12-2023 Cholesterol in VLDL Calc [Moles/Vol] 36 mg/dL 5-40 [facility] Whole blood hemoglobin A1c/t otal hemoglobin ratio (mass fraction)Ordered By: Migue Hutchinson on 08-12-2023 HbA1c (Bld) [Mass fraction] 5.7 % 3.8-5.6 [facility] Comment on above: Normal < 5.7 % Predi abetic 5.7 - 6.4 % Diabetic >or= 6.5 % Please note range changes. XR Shoulder - right 2 Viewso n 06-23-2023 IMPRESSION: NO ACUTE FINDINGS. Hair Boiler Operator: MARIA DOLORES Transcribe Date/Time: Jun 23 2023 6:25A Dictated by : EN MONTANO MD This examination was interpreted and the report reviewed and electronically signed by: EN MONTANO MD on Jun 23 2023 6:25AM [facility] DIVISION OF RADIOLOGY * * *Final Report* [...] cervical spine. - DIVISION OF RADIOLOGY Provider, [facility] Geri Villagran - 06/23/2023 * * *Final Report* [...] spine. - IMPRESSION IMPRESSION: NO ACUTE FINDINGS. Hair Boiler Operator: PSCB Transcribe Date/Time: Jun 23 2023 6:25A Dictated by : EN MONTANO MD This examination was interpreted and the report reviewed and electronically signed by: NE MONTANO MD on Jun 23 2023 6:25AM EST [facility] XR Shoulder - right 2 ViewsO rdered By: [facility] Provider on 06-23-2023 [facility] XR Shoulder - right 2 Viewso n 06-19-2023 Radiology Study observation (narrative) [facility] SRINATH SCREENINGon 12-10-2022 [facility] Absolute lymphocyte counton 06-25-2022 Lymphocytes Auto (Unsp spec) [#/Vol] 2.05 10*3/uL 0.83-4.51 [facility] Work Phone: Automated blood hematocrit ( percentage)on 06-25-2022 Hematocrit (Bld) [Volume fraction] 40.2 % 37-47 [facility] Basophil percentageon 2021 Basophils/100 WBC (Bld) 0.7 % 0-1 [facility] Bilirubin [Mass/Vol] 0.50 mg/dL 0.20-1.00 [facility] Work Phone: Comment on above: For patients on eltr ombopag therapy, use of Dimension Rydal TBIL is not recommended. Chloride [Moles/Vol] 106 mmol/L 98-107 [facility] Eosinophils/100 WBC (Bld) 0.9 % 0-5 [facility] Glucose [Mass/Vol] 136 mg/dL 74-106 [facility] Comment on above: Fasting Glucose resu lt greater than or equal to 126 mg/dL suggests DIABETES MELLITUS per A.D.A. criteria. Neutrophils (Bld) [#/Vol] 3.0 10*3/uL 2.0-7.7 [facility] Work Phone: Neutrophils/100 WBC (Bld) 53.4 % 47-70 [facility] Potassium [Moles/Vol] 3.4 mmol/L 3.5-5.1 [facility] Protein [Mass/Vol] 7.1 g/dL 6.4-8.2 [facility] Sodium [Moles/Vol] 140 mmol/L 136-145 [facility] WBC (Bld) [#/Vol] 5.6 10*3/uL 4.4-11.0 [facility] Blood erythrocytes count (nu mber/volume)on 06-25-2022 RBC (Bld) [#/Vol] 4.05 10*6/uL 4.2-5.4 [facility] Blood hemoglobin measurement (mass/volume)on 06-25-2022 Hemoglobin (Bld) [Mass/Vol] 13.2 g/dL 12.0-15.0 [facility] Blood lymphocytes/100 leukoc yteson 06-25-2022 Lymphocytes/100 WBC (Bld) 36.7 % 19-41 [facility] Blood monocytes/100 leukocyt eson 06-25-2022 Monocytes/100 WBC (Bld) 7.9 % 0-10 [facility] Blood platelet mean volumeon 06-25-2022 Platelet mean volume (Bld) [Entitic vol] 12.3 fL 6.2-12.0 [facility] Work Phone: CBC W/DIFF/PLT (EXTERNAL LAB SINA)on 06-25-2022 BASO ABSOLUTE [facility] EOS ABSOLUTE [facility] Immature Gran % [facility] IMMATURE GRANS ABSOLUTE [facility] Lymphocytes (Bld) [#/Vol] 2.05 10*3/uL 0.7 - 3.1 k/uL [facility] MCH 32.6 Pg 26.6 - 33 Pg [facility] MONOCYTES ABSOLUTE [facility] NEUTROPHILS ABSOLUTE 3.0 k/uL 1.4 - 7 .0 k/uL [facility] CMP (EXTERNAL)on 06-25-2022 Alk Phos Total 100 U/L 45 - 117 U/L [facility] AST [Catalytic activity/Vol] 17 U/L 8 - 37 U/L [facility] Bili Total 0.5 mg/dL 0.2 - 1 mg/dL [facility] CO2 [Moles/Vol] 29 mmol/L 21 - 32 MEQ/L [facility] GFR AFR AMER 68 mL/MIN [facility] GFR/1.73 sq M.predicted among non-blacks MDRD (S/P/Bld) [Vol rate/Area] 57 mL/min/{1.73_m2} [facility] Determination of erythrocyte mean corpuscular volume (MCV)on 06-25-2022 MCV (RBC) [Entitic vol] 99.3 fL 81-99 [facility] Laboratory - Chemistry and C hemistry - challengeon 06-25-2022 ALP [Catalytic activity/Vol] 100 U/L 45-117 [facility] Work Phone: ALT [Catalytic activity/Vol] 28 U/L 13-56 [facility] CO2 [Moles/Vol] 29.0 mmol/L 21.0-32.0 [facility] Work Phone: [phone] Globulin (S) [Mass/Vol] 3.6 g/dL 2.2-4.2 [facility] Work Phone: [phone] Urea nitrogen/Creatinine [Mass ratio] 13.5 mg/mg 10-20 [facility] Work Phone: Laboratory - Hematology and Cell countson 06-25-2022 Erythrocyte distribution width (RBC) [Entitic vol] 44.7 fL 35.1-43.9 [facility] Work Phone: Erythrocyte distribution width (RBC) [Ratio] 12.3 % 11.6-14.6 [facility] Immature granulocytes/100 WBC (Bld) 0.400 % 0.0-0.9 [facility] Work Phone: Comment on above: IG% - Immature Granu locytes (promyelocytes, myelocytes and metamyelocytes) > 1% indicates that a LEFT SHIFT is Present. MCH (RBC) [Entitic mass] 32.6 pg 27.0-32.0 [facility] Work Phone: Nucleated RBC/100 WBC (Bld) [Ratio] 0 % 0-5 [facility] Work Phone: MCHC [Mass/volume] by Automa larissa counton 06-25-2022 MCHC (RBC) [Mass/Vol] 32.8 g/dL 32-36 [facility] No Panel Informationon 06-25 Estimated GFR (MDRD) Amer 68 mL/min >60 [facility] Work Phone: Comment on above: GFR Calc Estimated GFR (MDRD) Non-Af Amer 57 mL/min >60 [facility] Work Phone: Comment on above: Non- GFR Calc Platelets bldon 06-25-2022 Platelets (Bld) [#/Vol] 190 10*3/uL 150-450 [facility] Serum or plasma C reactive p rotein measurement (mass/volume)on 06-25-2022 CRP [Mass/Vol] mg/L 0.0-3.0 [facility] Work Phone: Comment on above: C-Reactive Protein ( CRP) provides useful information for thediagnosis, therapy and monitoring of inflammatory processesand associated diseases. For the evaluation of Relative Riskfor Cardiovascular Disease, a High Sensitivity CRP (HSCRP)should be ordered. Serum or plasma albumin diane urement (mass/volume)on 06-25-2022 Albumin [Mass/Vol] 3.5 g/dL 3.2-5.0 [facility] Serum or plasma albumin/glob ulin mass ratioon 06-25-2022 Albumin/Globulin [Mass ratio] 1.0 {ratio} 0.9-2.4 [facility] Work Phone: Serum or plasma calcium diane urement (mass/volume)on 06-25-2022 Calcium [Mass/Vol] 8.9 mg/dL 8.5-10.1 [facility] Serum or plasma creatinine m easurement (mass/volume)on 06-25-2022 Creatinine [Mass/Vol] 1.04 mg/dL 0.55-1.02 [facility] Comment on above: The validity of the calculated GFR & GFRAA in patients over 70 years has not been determined. Clinical correlation is essential. Serum or plasma urea nitroge n measurement (mass/volume)on 06-25-2022 Urea nitrogen [Mass/Vol] 14 mg/dL 7-18 [facility] Thin prep Papanicolaou smear with manual screeningon 06-25-2022 Thin prep Papanicolaou smear with manual screening 17 U/L 15-37 [facility] Work Phone: Thin prep Papanicolaou smear with manual screening 5 5-15 [facility] Work Phone: XR KNEE GENERAL 4V AP BOTH/P A BOTH/LAT/MERC BILATERALon 05-20-2022 [facility] XR Knee - bilateral 4 Viewso n 05-20-2022 IMPRESSION: Mild bilateral patellofemoral compartment and moderate LEFT medial compartment osteoarthritis. Hair Boiler Operator: MARIA DOLORES Transcribe Date/Time: May 20 2022 12:21P Dictated by : ALICIA CESAR DO This examination was interpreted and the report reviewed and electronically signed by: ALICIA CESAR DO on May 20 2022 12:25PM [facility] DIVISION OF RADIOLOGY * * *Final Report* [...] effusion. No fracture. DIVISION OF RADIOLOGY Provider, [facility] [place] - 05/20/2022 * * *Final Report* * [...] compartment and moderate LEFT medial compartment osteoarthritis. Hair Boiler Operator: MARIA DOLORES Transcribe Date/Time: May 20 2022 12:21P Dictated by : ALICIA CESAR DO This examination was interpreted and the report reviewed and electronically signed by: ALICIA CESAR DO on May 20 2022 12:25PM EST [facility]narrative[facility] - bilateral 4 ViewsO rdered By: [facility] Provider on 05-20-2022 [facility] XR LUMBAR GENERAL 3V AP/LAT/ L5-S1on 05-07-2022 [facility] XR Lumbar spine 3 Viewson IMPRESSION: Osteopenia, scoliotic curvature and degenerative change as detailed in report. Hair Boiler Operator: MARIA DOLORES Transcribe Date/Time: May 07 2022 1:12P Dictated by : JOSE ANTONIO BURKETT MD This examination was interpreted and the report reviewed and electronically signed by: JOSE ANTONIO BURKETT MD on May 07 2022 1:14PM [facility] DIVISION OF RADIOLOGY * * *Final Report* [...] relevant examinations available for comparison within the [facility] Imaging Archives. RESULT: Counting reference: Lumbosacral junction. [...] tissues are unremarkable. DIVISION OF RADIOLOGY Provider, Jose David [facility] - 05/07/2022 * * *Final Report* * [...] relevant examinations available for comparison within the [facility] Imaging Archives. RESULT: Counting reference: Lumbosacral junction. [...] and degenerative change as detailed in report. Hair Boiler Operator: MARIA DOLORES Transcribe Date/Time: May 07 2022 1:12P Dictated by : JOSE ANTONIO BURKETT MD This examination was interpreted and the report reviewed and electronically signed by: JOSE ANTONIO BURKETT MD on May 07 2022 1:14PM EST [facility] Radiology Study observation (narrative) [facility] XR Lumbar spine 3 ViewsOrder ed By: [facility] Provider on 05-07-2022 [facility] COLONOSCOPY SCREENINGon 02-13 [facility] INR in Blood by Coagulation assayon 02-05-2022 INR Coag (Bld) [Relative time] 1.0 {INR} [facility] Work Phone: [phone] Laboratory - Coagulationon 0 02-05-2022 aPTT Coag (Bld) [Time] 25.5 s 24.1-36.2 [facility] Work Phone: PT Coag (PPP) [Time] 13.0 s 11.7-14.9 [facility] Work Phone: [phone] Platelets bldon 02-05-2022 Platelets (Bld) [#/Vol] 169 10*3/uL 150-450 [facility] Work Phone: Absolute lymphocyte counton 01-22-2022 Lymphocytes Auto (Unsp spec) [#/Vol] 1.97 10*3/uL 0.83-4.51 [facility] Work Phone: [phone] Atypical perinuclear antineu trophil cytoplasmic antibodies measurementon 01-22-2022 Neutrophil cytoplasmic Ab.perinuclear.atypic al IF (S) [Titer] <1:20 titer Neg:<1:20 [facility] Work Phone: [phone] Comment on above: The atypical pANCA p attern has been observed in asignificant percentage of patients with ulcerative colitis,primary sclerosing cholangitis and autoimmune hepatitis. Basophil percentageon 01-22- 2021 Ammonia (P) [Moles/Vol] 19.0 umol/L 11-32 [facility] Work Phone: Basophils/100 WBC (Bld) 0.7 % 0-1 [facility] Work Phone: Bilirubin [Mass/Vol] 0.70 mg/dL 0.20-1.00 [facility] Work Phone: Comment on above: For patients on eltr ombopag therapy, use of Dimension Rydal TBIL is not recommended. Chloride [Moles/Vol] 106 mmol/L 98-107 [facility] Work Phone: Eosinophils/100 WBC (Bld) 1.8 % 0-5 [facility] Work Phone: Glucose [Mass/Vol] 102 mg/dL 74-106 [facility] Work Phone: [phone] Comment on above: Fasting Glucose resu lt from 100 to 125 mg/dL suggests IMPAIRED HOMEOSTASIS per A.D.A. criteria. Neutrophils (Bld) [#/Vol] 2.0 10*3/uL 2.0-7.7 [facility] Work Phone: Neutrophils/100 WBC (Bld) 44.6 % 47-70 [facility] Work Phone: Potassium [Moles/Vol] 3.4 mmol/L 3.5-5.1 [facility] Work Phone: Protein [Mass/Vol] 7.0 g/dL 6.4-8.2 [facility] Work Phone: Sodium [Moles/Vol] 140 mmol/L 136-145 [facility] Work Phone: WBC (Bld) [#/Vol] 4.5 10*3/uL 4.4-11.0 [facility] Work Phone: [phone] Blood erythrocytes count (nu mber/volume)on 01-22-2022 RBC (Bld) [#/Vol] 4.00 10*6/uL 4.2-5.4 [facility] Work Phone: [phone] Blood hemoglobin measurement (mass/volume)on 01-22-2022 Hemoglobin (Bld) [Mass/Vol] 13.1 g/dL 12.0-15.0 [facility] Work Phone: Blood lymphocytes/100 leukoc yteson 01-22-2022 Lymphocytes/100 WBC (Bld) 44.2 % 19-41 [facility] Work Phone: Blood monocytes/100 leukocyt eson 01-22-2022 Monocytes/100 WBC (Bld) 8.5 % 0-10 [facility] Work Phone: Blood platelet mean volumeon 01-22-2022 Platelet mean volume (Bld) [Entitic vol] 11.9 fL 6.2-12.0 [facility] Work Phone: [phone] Determination of erythrocyte mean corpuscular volume (MCV)on 01-22-2022 MCV (RBC) [Entitic vol] 97.3 fL 81-99 [facility] Work Phone: [phone] HIV 1 and HIV-2 antibody ass ay with HIV-1 p24 antigen detectionon 01-22-2022 HIV 1+2 Ab+HIV1 p24 Ag IA Ql Non-Reactive Nonreactive [facility] Work Phone: [phone] Hematocrit Auto (Bld) [Volum e fraction]on 01-22-2022 Hematocrit (Bld) [Volume fraction] 38.9 % 37-47 [facility] Work Phone: [phone] INR in Blood by Coagulation assayon 01-22-2022 INR Coag (Bld) [Relative time] 1.1 {INR} [facility] Work Phone: [phone] Laboratory - Chemistry and C hemistry - challengeon 01-22-2022 ALP [Catalytic activity/Vol] 116 U/L 45-117 [facility] Work Phone: ALT [Catalytic activity/Vol] 23 U/L 13-56 [facility] Work Phone: [phone] CO2 [Moles/Vol] 28.0 mmol/L 21.0-32.0 [facility] Work Phone: [phone] Globulin (S) [Mass/Vol] 3.5 g/dL 2.2-4.2 [facility] Work Phone: Urea nitrogen/Creatinine [Mass ratio] 16.4 mg/mg 10-20 [facility] Work Phone: [phone] Laboratory - Coagulationon 0 01-22-2022 PT Coag (PPP) [Time] 13.4 s 11.7-14.9 [facility] Work Phone: [phone] Laboratory - Hematology and Cell countson 01-22-2022 Erythrocyte distribution width (RBC) [Entitic vol] 44.3 fL 35.1-43.9 [facility] Work Phone: Erythrocyte distribution width (RBC) [Ratio] 12.3 % 11.6-14.6 [facility] Work Phone: [phone] Immature granulocytes/100 WBC (Bld) 0.200 % 0.0-0.9 [facility] Work Phone: Comment on above: IG% - Immature Granu locytes (promyelocytes, myelocytes and metamyelocytes) > 1% indicates that a LEFT SHIFT is Present. MCH (RBC) [Entitic mass] 32.8 pg 27.0-32.0 [facility] Work Phone: Nucleated RBC/100 WBC (Bld) [Ratio] 0 % 0-5 [facility] Work Phone: [phone] MCHC Auto (RBC) [Mass/Vol]on 01-22-2022 MCHC (RBC) [Mass/Vol] 33.7 g/dL 32-36 [facility] Work Phone: [phone] No Panel Informationon 01-22 Ceruloplasmin 28.5 mg/dL 19.0-39.0 [facility] Work Phone: Estimated GFR (MDRD) Amer 93 mL/min >60 [facility] Work Phone: Comment on above: GFR Calc Estimated GFR (MDRD) Non-Af Amer 77 mL/min >60 [facility] Work Phone: Comment on above: Non- GFR Calc Haptoglobin 251 mg/dL 37-355 [facility] Work Phone: Comment on above: Performed at: [employer] [address] [id number] Director: Adams Pabon PhD, Phone: [phone] at: - [facility] [address] [id number] Director: Arash Sinclair MD, Phone: [phone] Platelets bldon 01-22-2022 Platelets (Bld) [#/Vol] 163 10*3/uL 150-450 [facility] Work Phone: Serum classic neutrophil cyt oplasmic antibody assay (units/volume)on 01-22-2022 Neutrophil cytoplasmic Ab.classic Qn (S) <1:20 titer Neg:<1:20 [facility] Work Phone: Serum or plasma albumin diane urement (mass/volume)on 01-22-2022 Albumin [Mass/Vol] 3.5 g/dL 3.2-5.0 [facility] Work Phone: Serum or plasma albumin/glob ulin mass ratioon 01-22-2022 Albumin/Globulin [Mass ratio] 1.0 {ratio} 0.9-2.4 [facility] Work Phone: Serum or plasma [id number] protein tumor marker measurement (units/volume)on 01-22-2022 AFP.tumor marker Qn 4.1 ng/mL 0.0-9.2 [facility] Work Phone: Comment on above: [facility] El ectrochemiluminescence Immunoassay(ECLIA)Values obtained with different assay methods or kits cannotbe used interchangeably. Results cannot be interpreted asabsolute evidence of the presence or absence of malignantdisease.This test is not interpretable in females. Serum or plasma angiotensin converting enzyme measurement (enzymatic activity/volume)on 01-22-2022 Angiotensin converting enzyme [Catalytic activity/Vol] 38 U/L 14-82 [facility] Work Phone: Serum or plasma calcium diane urement (mass/volume)on 01-22-2022 Calcium [Mass/Vol] 8.9 mg/dL 8.5-10.1 [facility] Work Phone: Serum or plasma creatinine m easurement (mass/volume)on 01-22-2022 Creatinine [Mass/Vol] 0.80 mg/dL 0.55-1.02 [facility] Work Phone: Comment on above: The validity of the calculated GFR & GFRAA in patients over 70 years has not been determined. Clinical correlation is essential. Serum or plasma ferritin silvio surement (mass/volume)on 01-22-2022 Ferritin [Mass/Vol] 38 ng/mL 8-252 [facility] Work Phone: Serum or plasma urea nitroge n measurement (mass/volume)on 01-22-2022 Urea nitrogen [Mass/Vol] 13 mg/dL 7-18 [facility] Work Phone: Serum perinuclear neutrophil cytoplasmic antibody titer by immunofluorescenceon 01-22-2022 Neutrophil cytoplasmic Ab.perinuclear IF (S) [Titer] <1:20 titer Neg:<1:20 [facility] Work Phone: Comment on above: The presence of posi tive fluorescence exhibiting P-ANCA orC- ANCA patterns alone is not specific for the diagnosis ofWegener's Granulomatosis (WG) or microscopic polyangiitis.Decisions about treatment should not be based solely onANCA IFA results. The [employer] ANCA Group Consensusrecommends follow up testing of positive sera with both WA-3 and MPO-ANCA enzyme immunoassays. As many as 5% serumsamples are positive only by EIA. Ref. AM J Clin [id number];111:[id number]. Thin prep Papanicolaou smear with manual screeningon 07-12-2022 Thin prep Papanicolaou smear with manual screening 17 U/L 15-37 [facility] Work Phone: Thin prep Papanicolaou smear with manual screening 6 5-15 [facility] Work Phone: Thin prep Papanicolaou smear with manual screening 158 U/L 84-246 [facility] Work Phone: Thin prep Papanicolaou smear with manual screening 116 ug/dL 80-158 [facility] Work Phone: Comment on above: Detection Limit = 5 Whole blood hemoglobin A1c/t otal hemoglobin ratio (mass fraction)on 01-22-2022 HbA1c (Bld) [Mass fraction] 5.8 % 3.8-5.6 [facility] Work Phone: Comment on above: Normal < 5.7 % Predi abetic 5.7 - 6.4 % Diabetic >or= 6.5 % Please note range changes. No Panel Informationon 12-24 [facility] Basophil percentageon 2021 Basophil percentage < 0.2 AI 0.0-0.9 [facility] Work Phone: Bilirubin [Mass/Vol] 0.60 mg/dL 0.20-1.00 [facility] Work Phone: Comment on above: For patients on eltr ombopag therapy, use of Dimension Rydal TBIL is not recommended. Protein [Mass/Vol] 7.7 g/dL 6.4-8.2 [facility] Work Phone: Direct bilirubinon 2 Bilirubin.direct [Mass/Vol] 0.11 mg/dL 0.00-0.30 [facility] Work Phone: Erythrocyte sedimentation ra jean claude 12-04-2021 ESR (Bld) [Velocity] 17 mm/h 0-30 [facility] Work Phone: Laboratory - Chemistry and C hemistry - challengeon 12-04-2021 ALP [Catalytic activity/Vol] 148 U/L 45-117 [facility] Work Phone: ALT [Catalytic activity/Vol] 29 U/L 13-56 [facility] Work Phone: Amylase [Catalytic activity/Vol] 34 U/L 5-55 [facility] Work Phone: Globulin (S) [Mass/Vol] 4.0 g/dL 2.2-4.2 [facility] Work Phone: No Panel Informationon 12-04 CA 19-9 Antigen < 2 U/mL 0-35 [facility] Work Phone: Comment on above: [facility] El ectrochemiluminescence Immunoassay(ECLIA)Values obtained with different assay methods or kits cannotbe used interchangeably. Results cannot be interpreted asabsolute evidence of the presence or absence of malignantdisease. CA 19-9 Antigen Serial Monitoring Not Reportable [facility] Work Phone: Centromere B Antibody <0.2 AI 0.0-0.9 [facility] Work Phone: Hepatitis A IgM Antibody Negative Negative [facility] Work Phone: Hepatitis B Core IgM Antibody Negative Negative [facility] Work Phone: Hepatitis C Antibody (EIA) <0.1 s/co ratio 0.0-0.9 [facility] Work Phone: Hepatitis C Antibody Comment Comment . [facility] Work Phone: Comment on above: NegativeNot infected with HCV, unless recent infection issuspected or other evidence exists to indicate HCVinfection. LIVE OUT NANNY Antibody <0.2 AI 0.0-0.9 [facility] Work Phone: Serum DNA double strand anti body assay (units/volume)on 12-04-2021 DNA double strand Ab Qn (S) [IU]/mL 0-9 [facility] Work Phone: Comment on above: Negative <5 Equivoca l 5 - 9 Positive >9 Serum Jocelynn-1 antibody assay (u nits/volume)on 12-04-2021 Jocelynn-1 extractable nuclear Ab Qn (S) <0.2 AI 0.0-0.9 [facility] Work Phone: Serum Scl-70 extractable nuc lear antibody assay (units/volume)on 12-04-2021 SCL-70 extractable nuclear Ab Qn (S) <0.2 AI 0.0-0.9 [facility] Work Phone: Serum Sahni extractable nucl ear antibody detectionon 12-04-2021 Sahni extractable nuclear Ab Ql (S) <0.2 AI 0.0-0.9 [facility] Work Phone: Serum mitochondria antibody detectionon 12-04-2021 Mitochondria Ab Ql (S) <20.0 Units 0.0-20.0 [facility] Work Phone: Comment on above: Negative 0.0 - 20.0 Equivocal 20.1 - 24.9 Positive >24.9Mitochondrial (M2) Antibodies are found in 90-96% ofpatients with primary biliary cirrhosis.Performed at: [facility] [place], [place] [id number] Director: Adams Pabon PhD, Phone: [phone] Serum or plasma C reactive p rotein measurement (mass/volume)on 12-04-2021 CRP [Mass/Vol] 6.53 mg/L 0.0-3.0 [facility] Work Phone: Comment on above: C-Reactive Protein ( CRP) provides useful information for thediagnosis, therapy and monitoring of inflammatory processesand associated diseases. For the evaluation of Relative Riskfor Cardiovascular Disease, a High Sensitivity CRP (HSCRP)should be ordered. Serum or plasma actin IgG an tibody assay (units/volume)on 12-04-2021 Actin IgG Qn 5 Units 0-19 [facility] Work Phone: Comment on above: Negative 0 - 19 Weak positive 20 - 30 Moderate to strong positive >30 Actin Antibodies are found in 52-85% of patients with autoimmune hepatitis or chronic active hepatitis and in 22% of patients with primary biliary cirrhosis.Performed at: [facility] [place], [place] [id number] Director: Adams Pabon PhD, Phone: [phone] Serum or plasma albumin diane urement (mass/volume)on 12-04-2021 Albumin [Mass/Vol] 3.7 g/dL 3.2-5.0 [facility] Work Phone: Serum or plasma hepatitis B virus surface antigen detection by immunoassayon 12-04-2021 HBV surface Ag IA Ql Negative Negative [facility] Work Phone: Thin prep Papanicolaou smear with manual screeningon 12-04-2021 Thin prep Papanicolaou smear with manual screening 24 U/L 1537 [facility] Work Phone: MRI PANC/CHRISTOS WO/W IVCONon Radiology Result ACTIONABLE Abnormal [facility] US ABD RT UPPER QUADRANTon 0 10-15-2021 [facility] Large Joint Arthro/Inj: R lott bacromial bursa [facility] Vital Signs Date Time Vital Sign Value Performing Clinician Facility 03-22-2025 13:43-0400 Body height 165.[address] Paula Barrera DO Work Phone: [facility] 03-22-2025 13:43-0400 Body mass index (BMI) [Ratio] 34.6 kg/m2 Dr. Paula Barrera DO Work Phone: [facility] 03-22-2025 13:43-0400 Body weight 94.[address] Paula Barrera DO Work Phone: [facility] 03-22-2025 13:43-0400 Diastolic blood pressure 70 mm[Hg] Dr. Paula Barrera DO Work Phone: [facility] 03-22-2025 13:43-0400 Heart rate 61 /min Dr. Paula Barrera DO Work Phone: [facility] 03-22-2025 13:43-0400 Systolic blood pressure 131 mm[Hg] Dr. Paula Barrera DO Work Phone: [facility] 10-29-2024 10:40-0400 Body height 165.[address] Paula Barrera DO Work Phone: [facility] 10-29-2024 10:40-0400 Body mass index (BMI) [Ratio] 34.6 kg/m2 Dr. Paula Barrera DO Work Phone: [facility] 10-29-2024 10:40-0400 Body weight 94.[address] Paula Barrera DO Work Phone: [facility] 10-29-2024 10:40-0400 Diastolic blood pressure 88 mm[Hg] Dr. Paula Barrera DO Work Phone: [facility] 10-29-2024 10:40-0400 Systolic blood pressure 176 mm[Hg] Dr. Paula Barrera DO Work Phone: [facility] 11-10-2023 10:27-0400 Body mass index (BMI) [Ratio] 31.63 kg/m2 Hollie Hoover APRN.[employer] UP OPERATOR Work Phone: [facility] 11-10-2023 10:27-0400 Body weight 94.35 kg Hollie Hoover HAIRSPRING TRUER.[employer] SET UP OPERATOR Work Phone: [facility] 11-10-2023 10:27-0400 Diastolic blood pressure 78 mm[Hg] Hollie Haury HAIRSPRING TRUER.[employer]LL PR[employer] SET UP OPERATOR Work Phone: [facility] 11-10-2023 10:27-0400 Systolic blood pressure 126 mm[Hg] Hollie Hoover APRN.[employer]RILL PR[employer] SET UP OPERATOR Work Phone: [facility] 11-04-2023 10:17-0400 Body height 172.7 cm Franklin Arias MD Work Phone: [facility] 11-04-2023 10:17-0400 Body mass index (BMI) [Ratio] 31.93 kg/m2 Franklin Arias MD Work Phone: [facility] 11-04-2023 10:17-0400 Body weight 95.25 kg Franklin Arias MD Work Phone: [facility] 11-04-2023 10:17-0400 Diastolic blood pressure 84 mm[Hg] Franklin Arias MD Work Phone: [facility] 11-04-2023 10:17-0400 Heart rate 76 /min Franklin Arias MD Work Phone: [facility] 11-04-2023 10:17-0400 Respiratory rate 16 /min Franklin Arias MD Work Phone: [facility] 11-04-2023 10:17-0400 Systolic blood pressure 126 mm[Hg] Franklin Arias MD Work Phone: [facility] 09-02-2023 11:06-0500 Body height 165.1 cm PA Cecily Coelho PA Work Phone: [facility] 09-02-2023 11:06-0500 Body mass index (BMI) [Ratio] 35.6 kg/m2 PA Cecily Coelho PA Work Phone: [facility] 09-02-2023 11:06-0500 Body temperature 98.3 [degF] PA Cecily Coelho PA Work Phone: [facility] 09-02-2023 11:06-0500 Body weight 97 kg PA Cecily Coelho PA Work Phone: [facility] 09-02-2023 11:06-0500 Diastolic blood pressure 81 mm[Hg] PA Cecily Coelho PA Work Phone: [facility] 09-02-2023 11:06-0500 Heart rate 61 /min PA Cecily Coelho PA Work Phone: [facility] 09-02-2023 11:06-0500 Respiratory rate 14 /min PA Cecily Coelho PA Work Phone: [facility] 09-02-2023 11:06-0500 SaO2% (BldA) [Mass fraction] 100 % PA Cecily Coelho PA Work Phone: [facility] 09-02-2023 11:06-0500 Systolic blood pressure 187 mm[Hg] PA Cecily Coelho PA Work Phone: [facility] 08-12-2023 11:54-0500 Body height 157.48 cm PA Cecily Coelho PA Work Phone: [facility] 08-12-2023 11:54-0500 Body mass index (BMI) [Ratio] 39.6 kg/m2 PA Cecily Coelho PA Work Phone: [facility] 08-12-2023 11:54-0500 Body weight 98.42 kg PA Cecily Coelho PA Work Phone: [facility] 08-12-2023 11:54-0500 Diastolic blood pressure 85 mm[Hg] PA Cecily Coelho PA Work Phone: [facility] 08-12-2023 11:54-0500 Heart rate 70 /min PA Cecily Coelho PA Work Phone: [facility] 08-12-2023 11:54-0500 SaO2% (BldA) [Mass fraction] 98 % PA Cecily Coelho PA Work Phone: [facility] 08-12-2023 11:54-0500 Systolic blood pressure 144 mm[Hg] PA Cecily Coelho PA Work Phone: [facility] 03-21-2023 14:33-0400 Body temperature 97 [degF] Oly Man APRN.[employer] SET UP OPERATOR Work Phone: [facility] 03-21-2023 14:33-0400 Body weight 98.79 kg Oly Man APRN.[employer] SET UP OPERATOR Work Phone: [facility] 03-21-2023 14:33-0400 Diastolic blood pressure 87 mm[Hg] Oly Man APRN.[employer] SET UP OPERATOR Work Phone: [facility] 03-21-2023 14:33-0400 Heart rate 70 /min Oly Man APRN.[employer] SET UP OPERATOR Work Phone: [facility] 03-21-2023 14:33-0400 Respiratory rate 18 /min Oly Man APRN.[employer] SET UP OPERATOR Work Phone: [facility] 03-21-2023 14:33-0400 SaO2% (BldA) [Mass fraction] 96 % Oly Donovan JACKSON.[employer]LL [employer] SET UP OPERATOR Work Phone: [facility] 03-21-2023 14:33-0400 Systolic blood pressure 157 mm[Hg] Oly Man APRN.[employer] SET UP OPERATOR Work Phone: [facility] 11-05-2022 13:45-0400 Body temperature 97.81 [degF] Krislyn Aberegg PA Work Phone: [facility] 11-05-2022 13:45-0400 Body weight 100.25 kg Krislyn Aberegg PA Work Phone: [facility] 11-05-2022 13:45-0400 Diastolic blood pressure 70 mm[Hg] Krislyn Aberegg PA Work Phone: [facility] 11-05-2022 13:45-0400 Heart rate 78 /min Krislyn Aberegg PA Work Phone: [facility] 11-05-2022 13:45-0400 Respiratory rate 16 /min Krislyn Aberegg PA Work Phone: [facility] 11-05-2022 13:45-0400 SaO2% (BldA) [Mass fraction] 98 % Krislyn Aberegg PA Work Phone: [facility] 11-05-2022 13:45-0400 Systolic blood pressure 132 mm[Hg] Krislyn Aberegg PA Work Phone: [facility] 10-08-2022 10:12-0400 Body height 165 cm Cecily Coelho PA-C Work Phone: [facility] 10-08-2022 10:12-0400 Body temperature 97.39 [degF] Cecily Coelho PA-C Work Phone: [facility] 10-08-2022 10:12-0400 Body weight 97.52 kg Cecily Coelho PA-C Work Phone: [facility] 10-08-2022 10:12-0400 Diastolic blood pressure 88 mm[Hg] Cecily Coelho PA-C Work Phone: [facility] 10-08-2022 10:12-0400 Heart rate 60 /min Cecily Coelho PA-C Work Phone: [facility] 10-08-2022 10:12-0400 Respiratory rate 18 /min Cecily Coelho PA-C Work Phone: [facility] 10-08-2022 10:12-0400 Systolic blood pressure 132 mm[Hg] Cecily Coelho PA-C Work Phone: [facility] 06-25-2022 11:22-0500 Body height 157.48 cm PA Cecily Coelho PA Work Phone: [facility] Work Phone: 06-25-2022 11:22-0500 Body mass index (BMI) [Ratio] 40.8 kg/m2 PA Cecily Coelho PA Work Phone: [facility] Work Phone: 06-25-2022 11:22-0500 Body weight 101.15 kg PA Cecily Coelho PA Work Phone: [facility] Work Phone: 06-25-2022 11:22-0500 Diastolic blood pressure 88 mm[Hg] PA Cecily Coelho PA Work Phone: [facility] Work Phone: 06-25-2022 11:22-0500 Heart rate 87 /min PA Cecily Coelho PA Work Phone: [facility] Work Phone: 06-25-2022 11:22-0500 SaO2% (BldA) [Mass fraction] 98 % PA Cecily Coelho PA Work Phone: [facility] Work Phone: 06-25-2022 11:22-0500 Systolic blood pressure 147 mm[Hg] PA Cecily Coelho PA Work Phone: [facility] Work Phone: 05-20-2022 11:31-0500 Body temperature 97.81 [degF] Hal Desai MD Work Phone: [facility] 05-20-2022 11:31-0500 Body weight 97.98 kg Hal Desai MD Work Phone: [facility] 05-20-2022 11:31-0500 Diastolic blood pressure 76 mm[Hg] Hal Desai MD Work Phone: [facility] 05-20-2022 11:31-0500 Heart rate 70 /min Hal Desai MD Work Phone: [facility] 05-20-2022 11:31-0500 Respiratory rate 16 /min Hal Desai MD Work Phone: [facility] 05-20-2022 11:31-0500 SaO2% (BldA) [Mass fraction] 98 % Hal Desai MD Work Phone: [facility] 05-20-2022 11:31-0500 Systolic blood pressure 124 mm[Hg] Hal Desai MD Work Phone: [facility] 05-14-2022 09:30-0400 Body height 160 cm Florencia Mackay PA-C Work Phone: [facility] 05-14-2022 09:30-0400 Body temperature 97.11 [degF] Florencia Mackay PA-C Work Phone: [facility] 05-14-2022 09:30-0400 Body weight 99.34 kg Florencia Mackay PA-C Work Phone: [facility] 05-14-2022 09:30-0400 Diastolic blood pressure 84 mm[Hg] Florencia Louann PA-C Work Phone: [facility] 05-14-2022 09:30-0400 Heart rate 72 /min Florencia Mackay PA-C Work Phone: [facility] 05-14-2022 09:30-0400 SaO2% (BldA) [Mass fraction] 96 % Florencia Epsteinf PA-C Work Phone: [facility] 05-14-2022 09:30-0400 Systolic blood pressure 152 mm[Hg] Florencia Lew PA-C Work Phone: [facility] 05-07-2022 10:28-0400 Body temperature 97.9 [degF] Cecily Coelho PA-C Work Phone: [facility] 05-07-2022 10:28-0400 Body weight 98.43 kg Cecily Coelho PA-C Work Phone: [facility] 05-07-2022 10:28-0400 Diastolic blood pressure 80 mm[Hg] Cecily Coelho PA-C Work Phone: [facility] 05-07-2022 10:28-0400 Heart rate 68 /min Cecily Coelho PA-C Work Phone: [facility] 05-07-2022 10:28-0400 Respiratory rate 18 /min Cecily Coelho PA-C Work Phone: [facility] 05-07-2022 10:28-0400 Systolic blood pressure 112 mm[Hg] Cecily Coelho PA-C Work Phone: [facility] 04-09-2022 09:23-0400 Diastolic blood pressure 84 mm[Hg] Franklin Arias MD Work Phone: [facility] 04-09-2022 09:23-0400 Systolic blood pressure 164 mm[Hg] Franklin Arias MD Work Phone: [facility] 04-09-2022 09:00-0400 Body weight 100.25 kg Franklin Arias MD Work Phone: [facility] 04-09-2022 09:00-0400 Heart rate 72 /min Franklin Arias MD Work Phone: [facility] 04-09-2022 09:00-0400 Respiratory rate 16 /min Franklin Arias MD Work Phone: [facility] 03-12-2022 12:18-0400 Diastolic blood pressure 72 mm[Hg] Riley Farrell MD Work Phone: [facility] 03-12-2022 12:18-0400 Heart rate 61 /min Riley Farrell MD Work Phone: [facility] 03-12-2022 12:18-0400 Respiratory rate 16 /min Riley Farrell MD Work Phone: [facility] 03-12-2022 12:18-0400 SaO2% (BldA) [Mass fraction] 94 % Riley Farrell MD Work Phone: [facility] 03-12-2022 12:18-0400 Systolic blood pressure 133 mm[Hg] Riley Farrell MD Work Phone: [facility] 03-12-2022 10:00-0400 Body temperature 97.39 [degF] Riley Farrell MD Work Phone: [facility] 02-05-2022 11:18-0400 Diastolic blood pressure 71 mm[Hg] PA Cecily Coelho PA Work Phone: [facility] Work Phone: 02-05-2022 11:18-0400 Heart rate 58 /min PA Cecily Coelho PA Work Phone: [facility] Work Phone: 02-05-2022 11:18-0400 Respiratory rate 16 /min PA Cecily Coelho PA Work Phone: [facility] Work Phone: 02-05-2022 11:18-0400 SaO2% (BldA) [Mass fraction] 94 % PA Cecily Coelho PA Work Phone: [facility] Work Phone: 02-05-2022 11:18-0400 Systolic blood pressure 149 mm[Hg] PA Cecily Coelho PA Work Phone: [facility] Work Phone: 02-05-2022 09:15-0400 Inhaled oxygen flow rate 2 L/min PA Cecily Coelho PA Work Phone: [facility] Work Phone: 02-05-2022 08:30-0400 Body height 157.48 cm PA Cecily Coelho PA Work Phone: [facility] Work Phone: 02-05-2022 08:30-0400 Body mass index (BMI) [Ratio] 41.1 kg/m2 PA Cecily Coelho PA Work Phone: [facility] Work Phone: 02-05-2022 08:30-0400 Body temperature 97.8 [degF] PA Cecily Coelho PA Work Phone: [facility] Work Phone: 02-05-2022 08:30-0400 Body weight 102.05 kg PA Cecily Coelho PA Work Phone: [facility] Work Phone: 01-22-2022 13:22-0400 Body height 162.56 cm PA Cecily Coelho PA Work Phone: [facility] Work Phone: 01-22-2022 13:22-0400 Body mass index (BMI) [Ratio] 37.2 kg/m2 PA Cecily Coelho PA Work Phone: [facility] Work Phone: 01-22-2022 13:22-0400 Body weight 98.42 kg PA Cecily Coelho PA Work Phone: [facility] Work Phone: 01-22-2022 13:22-0400 Diastolic blood pressure 91 mm[Hg] PA Cecily Coelho PA Work Phone: [facility] Work Phone: 01-22-2022 13:22-0400 Heart rate 68 /min PA Cecily Coelho PA Work Phone: [facility] Work Phone: 01-22-2022 13:22-0400 SaO2% (BldA) [Mass fraction] 95 % PA Cecily Coelho PA Work Phone: [facility] Work Phone: 01-22-2022 13:22-0400 Systolic blood pressure 160 mm[Hg] PA Cecily Coelho PA Work Phone: [facility] Work Phone: 01-08-2022 13:04-0400 Body temperature 98.29 [degF] Cecily Coelho PA-C Work Phone: [facility] 01-08-2022 13:04-0400 Body weight 99.34 kg Cecily Coelho PA-C Work Phone: [facility] 01-08-2022 13:04-0400 Diastolic blood pressure 64 mm[Hg] Cecily Coelho PA-C Work Phone: [facility] 01-08-2022 13:04-0400 Heart rate 68 /min Cecily Coelho PA-C Work Phone: [facility] 01-08-2022 13:04-0400 Respiratory rate 18 /min Cecily Coelho PA-C Work Phone: [facility] 01-08-2022 13:04-0400 Systolic blood pressure 110 mm[Hg] Cecily Coelho PA-C Work Phone: [facility] 12-25-2021 10:33-0400 Diastolic blood pressure 89 mm[Hg] Cecily Coelho PA-C Work Phone: [facility] 12-25-2021 10:33-0400 Heart rate 70 /min Cecily Coelho PA-C Work Phone: [facility] 12-25-2021 10:33-0400 Systolic blood pressure 163 mm[Hg] Cecily Coelho PA-C Work Phone: [facility] 12-25-2021 10:17-0400 Body temperature 98.01 [degF] Cecily Coelho PA-C Work Phone: [facility] 12-25-2021 10:17-0400 Body weight 98.88 kg Cecily Coelho PA-C Work Phone: [facility] 12-25-2021 10:17-0400 Respiratory rate 18 /min Cecily Coelho PA-C Work Phone: [facility] 12-25-2021 10:17-0400 SaO2% (BldA) [Mass fraction] 98 % Cecily Coelho PA-C Work Phone: [facility] 12-24-2021 11:00-0400 Diastolic blood pressure 94 mm[Hg] David Palmer MD Work Phone: [facility] 12-24-2021 11:00-0400 Heart rate 68 /min David Palmer MD Work Phone: [facility] 12-24-2021 11:00-0400 Respiratory rate 16 /min David Palmer MD Work Phone: [facility] 12-24-2021 11:00-0400 SaO2% (BldA) [Mass fraction] 92 % David Pamler MD Work Phone: [facility] 12-24-2021 11:00-0400 Systolic blood pressure 178 mm[Hg] David Palmer MD Work Phone: [facility] 12-24-2021 09:00-0400 Body temperature 97 [degF] David Palmer MD Work Phone: [facility] 12-24-2021 09:00-0400 Body weight 100.6 kg David Palmer MD Work Phone: [facility] 12-06-2021 08:15-0400 Body temperature 97.81 [degF] Hal Desai MD Work Phone: [facility] 12-06-2021 08:15-0400 Body weight 100.61 kg Hal Desai MD Work Phone: [facility] 12-06-2021 08:15-0400 Diastolic blood pressure 82 mm[Hg] Hal Desai MD Work Phone: [facility] 12-06-2021 08:15-0400 Heart rate 77 /min Hal Desai MD Work Phone: [facility] 12-06-2021 08:15-0400 Respiratory rate 16 /min Hal Desai MD Work Phone: [facility] 12-06-2021 08:15-0400 SaO2% (BldA) [Mass fraction] 97 % Hal Desai MD Work Phone: [facility] 12-06-2021 08:15-0400 Systolic blood pressure 144 mm[Hg] Hal Desai MD Work Phone: [facility] 12-04-2021 13:53-0400 Body height 162.56 cm PA Cecliy Coelho PA Work Phone: [facility] Work Phone: 12-04-2021 13:53-0400 Body mass index (BMI) [Ratio] 39.4 kg/m2 PA Cecily Coelho PA Work Phone: [facility] Work Phone: 12-04-2021 13:53-0400 Body weight 104.32 kg PA Cecily Coelho PA Work Phone: [facility] Work Phone: 12-04-2021 13:53-0400 Diastolic blood pressure 82 mm[Hg] PA Cecily Coelho PA Work Phone: [facility] Work Phone: 12-04-2021 13:53-0400 Heart rate 78 /min PA Cecily Coelho PA Work Phone: [facility] Work Phone: 12-04-2021 13:53-0400 SaO2% (BldA) [Mass fraction] 94 % PA Cecily Coelho PA Work Phone: [facility] Work Phone: 12-04-2021 13:53-0400 Systolic blood pressure 122 mm[Hg] PA Cecily Coelho PA Work Phone: [facility] Work Phone: 12-04-2021 13:53-0400 Body height 162.56 cm DEVAUGHN Coelho PA Work Phone: [facility] Work Phone: 12-04-2021 13:53-0400 Body mass index (BMI) [Ratio] 39.4 kg/m2 PA Cecily Coelho PA Work Phone: [facility] Work Phone: 12-04-2021 13:53-0400 Body weight 104.32 kg PA Cecily Coelho PA Work Phone: [facility] Work Phone: 12-04-2021 13:53-0400 Diastolic blood pressure 82 mm[Hg] PA Cecily Coelho PA Work Phone: [facility] Work Phone: 12-04-2021 13:53-0400 Heart rate 78 /min DEVAUGHN Coelho PA Work Phone: [facility] Work Phone: 12-04-2021 13:53-0400 SaO2% (BldA) [Mass fraction] 94 % PA Cecily Coelho PA Work Phone: [facility] Work Phone: 12-04-2021 13:53-0400 Systolic blood pressure 122 mm[Hg] DEVAUGHN Coelho PA Work Phone: [facility] Work Phone: 10-22-2021 14:27-0400 Diastolic blood pressure 81 mm[Hg] Mi Nurse Work Phone: [facility] 10-22-2021 14:27-0400 Heart rate 74 /min Mi Nurse Work Phone: [facility] 10-22-2021 14:27-0400 Systolic blood pressure 124 mm[Hg] Mi Nurse Work Phone: [facility] 10-01-2021 13:37-0400 Diastolic blood pressure 89 mm[Hg] Cecily Coelho PA-C Work Phone: [facility] 10-01-2021 13:37-0400 Systolic blood pressure 174 mm[Hg] Cecily Coelho PA-C Work Phone: [facility] 10-01-2021 12:22-0400 Body height 164.5 cm Cecily Coelho PA-C Work Phone: [facility] 10-01-2021 12:22-0400 Body temperature 98.01 [degF] Cecily Coelho PA-C Work Phone: [facility] 10-01-2021 12:22-0400 Body weight 99.79 kg Cecily Coelho PA-C Work Phone: [facility] 10-01-2021 12:22-0400 Heart rate 72 /min Cecily Coelho PA-C Work Phone: [facility] 10-01-2021 12:22-0400 Respiratory rate 18 /min Cecily Coelho PA-C Work Phone: [facility] Encounters Encounter Date Encounter Type Care Provider Facility Start: 04-15-2025 ambulatory Paula Barrera Facilit y:[facility] Start: 03-22-2025 End: 03-22-[address] Shaquille Ayala MD -[facility] Work Phone: Start: 03-22-2025 End: 03-22-[address] Paula Barrera DO Work Phone: -[facility] Start: 01-11-2025 Non-patient / Non-visit Dr. Shaquille small MD -[facility] Work Phone: Start: 12-02-2024 End: 12-30-2024 ambulatory Franklin Arias MD Work Phone: [address] [place] [address] Comment on above: Blood Pressure Check Start: 11-02-2024 End: 11-02-[address] Paula Barrera DO Work Phone: [facility] Work Phone: Start: 11-02-2024 End: 11-02-[address] Ina Leon MD -Ultrasound, [facility] Work Phone: Start: 11-02-2024 End: 11-02-2024 ambulatory Paula Barrera Facility:[facility] Start: 10-29-2024 End: 10-29-[address] Ina Leon MD -[facility] Work Phone: Start: 10-29-2024 End: 10-29-2024 ambulatory [place] Bar[place] [place]: 10-12-2024 End: 10-12-[address] Paula Barrera DO Work Phone: [facility] Work Phone: Start: 10-12-2024 End: 10-12-[address] Paula Barrera DO -Outpatient Bone Densitometry Work Phone: Start: 10-12-2024 End: 10-12-2024 ambulatory Paula Barrera Facility:[facility] Start: 09-27-2024 End: 09-27-[address] Paula Barrera DO Work Phone: [facility] Work Phone: Start: 09-27-2024 End: 09-27-[address] Migue Hutchinson MD -Cat Scan, [facility] Work Phone: Start: 09-27-2024 End: 09-27-2024 ambulatory Migue Hutchinson Facility:[facility] Start: 05-03-2024 ambulatory Paula Barrera Facilit y:[facility] Start: 05-03-2024 End: 05-03-2024 ambulatory Paula Barrera Facility:[facility] Start: 04-20-2024 ambulatory Paula Barrera Facilit y:[facility] Start: 04-20-2024 End: 04-20-2024 ambulatory Paula Barrera Facility:[facility] Start: 01-06-2024 Refill Franklin tavarez MD Work Phone: [facility] Comment on above: Refill Request Start: 12-16-2023 Documentation procedure Mammog clair Coordinator [facility] Department Start: 12-16-2023 Letter encounter Mammography Coordinator [facility] Department Start: 12-16-2023 Telephone encounter Franklin Arias MD Work Phone: [facility] Start: 12-15-2023 End: 12-15-2023 Subsequent hospital visit by physician [facility] Comment on above: Encounter for screen ing mammogram for breast cancer [Z12.31] Start: 11-10-2023 Telephone encounter Hollie delvalle APRN.[employer] UP OPERATOR Work Phone: OB/Gynecology Comment on above: Patient Update Start: 11-10-2023 End: 11-10-2023 Patient encounter procedure Hollie Hoover APRN.[employer] UP OPERATOR Work Phone: OB/Gynecology Comment on above: Uterovaginal prolaps e (Primary Dx); Cystocele, midline Start: 11-06-2023 Telephone encounter Franklin Arias MD Work Phone: [facility] Comment on above: Results Start: 11-04-2023 End: 11-04-2023 Patient encounter procedure Franklin Arias MD Work Phone: [facility] Comment on above: Encounter for Medica re annual wellness exam (Primary Dx); Essential hypertension; Mixed hyperlipidemia; GERD without esophagitis; Elevated fasting glucose; Vitamin D deficiency; Low serum vitamin B12; Liver fibrosis; Vaginal anomaly; Obesity, Class I, BMI 30-34.9; Encounter for screening mammogram for breast cancer; Advance directive discussed with patient; Medication management Start: 10-27-2023 End: 10-27-2023 Patient encounter procedure Shantal Galan PA-C Work Phone: Orthopaedics Comment on above: Acute pain of right shoulder (Primary Dx); Cervicalgia; Bursitis of right shoulder Start: 09-02-2023 End: 09-02-2023 Emergency department patient visit DEVAUGHN CANTOR Work Phone: [facility] Work Phone: Start: 09-02-2023 Patient encounter procedure DEVAUGHN CANTOR Work Phone: [facility]Ul[facility]ound, [facility] Work Phone: Start: 08-26-2023 Telephone encounter Shantal cameron PA-C Work Phone: Orthopaedics Comment on above: Results Start: 08-25-2023 End: 08-25-2023 Subsequent hospital visit by physician [facility] Work Phone: Radiology Comment on above: Cervicalgia [M54.2] Start: 08-25-2023 End: 08-25-2023 Patient encounter procedure Shantal Galan PA-C Work Phone: Orthopaedics Comment on above: Bursitis of right sh oulder (Primary Dx); Acute pain of right shoulder; Cervicalgia Start: 08-18-2023 Refill Franklin tavarez MD Work Phone: [facility] Comment on above: Refill Request Start: 08-12-2023 End: 08-12-2023 ambulatory DEVAUGHN CANTOR Work Phone: [facility] Work Phone: Start: 08-12-2023 End: 08-12-2023 Patient encounter procedure DEVAUGHN CANTOR Work Phone: [facility] Gastroenterology Work Phone: Start: 06-19-2023 End: 06-19-2023 Subsequent hospital visit by physician [facility] Work Phone: Radiology Comment on above: Acute pain of right shoulder [M25.511] Start: 04-15-2023 Telephone encounter Sudha woodruff APRN.CNP Work Phone: [facility] [place] Comment on above: Results Start: 03-21-2023 End: 03-21-2023 Patient encounter procedure Oly Man RENETTA.[employer] UP OPERATOR Work Phone: [facility] Comment on above: Acute cough (Primary Dx) Start: 12-11-2022 Telephone encounter Cecily nogueira PA-C Work Phone: [facility] [place] Comment on above: Results Start: 12-10-2022 Documentation procedure Mammog clair Coordinator [facility] Start: 12-10-2022 Letter encounter Mammography Coordinator [facility] Department Start: 12-10-2022 End: 12-10-2022 Subsequent hospital visit by physician [facility] Comment on above: Encounter for screen ing mammogram for breast cancer [Z12.31] Start: 11-05-2022 End: 11-05-2022 Patient encounter procedure Joao CANTOR Work Phone: [facility] Comment on above: Bacterial sinusitis (Primary Dx) Start: 10-09-2022 Telephone encounter Cecily nogueira PA-C Work Phone: [facility] [place] Comment on above: Results Start: 10-08-2022 End: 10-08-2022 Patient encounter procedure Cecily Coelho PA-C Work Phone: [facility] [place] Comment on above: Well adult exam (Opal riya Dx); Essential hypertension; Mixed hyperlipidemia; Elevated fasting glucose; Low serum vitamin B12; Liver fibrosis; Carotid stenosis, bilateral; Obesity, Class II, BMI 35-39.9; Vitamin D deficiency; Encounter for screening mammogram for breast cancer; Encounter for immunization Start: 10-08-2022 End: 10-08-2022 Patient encounter status Cecily Coelho PA-C Work Phone: [facility] [place] Start: 08-06-2022 Refill Franklin tavarez MD Work Phone: [facility] [place] Comment on above: Refill Request Start: 07-09-2022 End: 07-09-2022 ambulatory PA Cecily CANTOR Work Phone: [facility] Work Phone: Start: 07-09-2022 End: 07-09-2022 Patient encounter procedure DEVAUGHN CANTOR Work Phone: [facility], [facility] Start: 06-27-2022 ambulatory Franklin tavarez MD Work Phone: [facility] Start: 06-25-2022 End: 06-25-2022 ambulatory DEVAUGHN CANTOR Work Phone: [facility] Work Phone: Start: 06-25-2022 End: 06-25-2022 Patient encounter procedure DEVAUGHN CANTOR Work Phone: [facility] Gastroenterology Start: 05-20-2022 End: 05-20-2022 Subsequent hospital visit by physician [facility] Work Phone: Radiology Comment on above: Pain in both knees, unspecified chronicity [M25.561, M25.562] Start: 05-20-2022 End: 05-20-2022 Patient encounter procedure Hal Desai MD Work Phone: [facility] Comment on above: Pain in both knees, unspecified chronicity (Primary Dx) Start: 05-14-2022 End: 05-14-2022 Patient encounter procedure Florencia Lew PA-C Work Phone: General Surgery Comment on above: History of colonic p olyps (Primary Dx); Tubular adenoma Start: 05-07-2022 Telephone encounter Cecily nogueira PA-C Work Phone: [facility] Comment on above: Results Start: 05-07-2022 End: 05-07-2022 Subsequent hospital visit by physician X[facility] Work Phone: Radiology Comment on above: Chronic midline low back pain without sciatica [M54.50, G89.29] Start: 05-07-2022 End: 05-07-2022 Patient encounter procedure Cecily Coelho PA-C Work Phone: [facility] Comment on above: Essential hypertensi on (Primary Dx); Chronic midline low back pain without sciatica Start: 04-29-2022 End: 04-29-2022 Nursing evaluation of patient and report Mi Nurse Work Phone: [facility] Comment on above: Need for vaccination (Primary Dx); Need for influenza vaccination Start: 04-10-2022 Telephone encounter Franklin Arias MD Work Phone: [facility] Comment on above: Results Start: 04-09-2022 End: 04-09-2022 Patient encounter procedure Franklin Arias MD Work Phone: [facility] Comment on above: Essential hypertensi on (Primary Dx); Mixed hyperlipidemia; Elevated fasting glucose; LPRD (laryngopharyngeal reflux disease); Carotid stenosis, bilateral; Vitamin D deficiency; Obesity, Class II, BMI 35-39.9; Low serum vitamin B12; Leg cramps Start: 03-12-2022 End: 03-12-2022 Subsequent hospital visit by physician Riley Farrell MD Work Phone: Ambulatory Surgery Comment on above: Screening for colon cancer [Z12.11] Start: 02-05-2022 End: 02-05-2022 ambulatory DEVAUGHN CANTOR Work Phone: [facility] Work Phone: Start: 02-05-2022 End: 02-05-2022 Patient encounter procedure DEVAUGHN CANTOR Work Phone: [facility] Start: 01-30-2022 Telephone encounter Cecily nogueira PA-C Work Phone: [facility] Comment on above: Outside Labs Results Start: 01-22-2022 End: 01-22-2022 Patient encounter procedure DEVAUGHN CANTOR Work Phone: [facility] G[facility] Start: 01-15-2022 End: 01-15-2022 Patient encounter procedure DEVAUGHN CANTOR Work Phone: [facility] Start: 01-09-2022 Telephone encounter Cecily nogueira PA-C Work Phone: [facility] [place] Comment on above: Results Start: 01-08-2022 End: 01-08-2022 Patient encounter procedure Cecily Coelho PA-C Work Phone: [facility] [place] Comment on above: Essential hypertensi on (Primary Dx); Leg cramping; Vitamin D deficiency; Elevated vitamin B12 level; Screening for colon cancer; Mixed hyperlipidemia Start: 12-25-2021 Telephone encounter Cecily nogueira PA-C Work Phone: [facility] [place] Comment on above: Results; Patient Upd ate Start: 12-25-2021 End: 12-25-2021 Patient encounter procedure Cecily Coelho PA-C Work Phone: [facility] [place] Comment on above: Hypertension, essent ial (Primary Dx); Pancreatic cyst Start: 12-24-2021 Telephone encounter Sophia Man MA [facility] [place] Comment on above: Patient Update; Appo intment Start: 12-24-2021 End: 12-24-2021 Subsequent hospital visit by physician David Palmer MD Work Phone: Ambulatory Surgery Comment on above: Screening for colon cancer [Z12.11] Start: 12-07-2021 Telephone encounter Oly Man APRN.CNP Work Phone: [facility] Comment on above: Results Start: 12-06-2021 End: 12-06-2021 Patient encounter procedure Hal Desai MD Work Phone: [facility] Comment on above: URI, acute (Primary Dx) Start: 12-04-2021 End: 12-04-2021 Patient encounter procedure DEVAUGHN CANTOR Work Phone: [facility] Start: 12-04-2021 End: 12-04-2021 Patient encounter procedure DEVAUGHN CANTOR Work Phone: [facility] Start: 11-08-2021 Telephone encounter Cecily nogueira PA-C Work Phone: [facility] [place] Comment on above: Results Start: 11-07-2021 End: 11-07-2021 Subsequent hospital visit by physician [facility] (I-Stat/1.5t) Work Phone: Radiology Comment on above: Abnormal results of liver function studies [R94.5] Start: 11-05-2021 Telephone encounter Florencia palacios PA-C Work Phone: General Surgery Comment on above: COLON ASC Start: 10-30-2021 Documentation procedure Mammog clair Coordinator [facility] Start: 10-30-2021 Letter encounter Mammography Coordinator [facility] Department Start: 10-30-2021 Telephone encounter Cecily nogueira PA-C Work Phone: [facility] [place] Comment on above: Results Start: 10-29-2021 End: 10-29-2021 Subsequent [facility] visit [facility] Comment on above: Screening mammogram for breast cancer [Z12.31] Start: 10-23-2021 Telephone encounter Cecily nogueira PA-C Work Phone: [facility] [place] Comment on above: Orders Start: 10-22-2021 End: 10-22-2021 Nursing evaluation of patient and report Mi Nurse Work Phone: [facility] [place] Comment on above: Essential hypertensi on (Primary Dx) Start: 10-22-2021 Telephone encounter Franklin Arias MD Work Phone: [facility] [place] Comment on above: Blood Pressure Check Start: 10-16-2021 Patient encounter procedure Geraldine Okeefe MD Work Phone: [facility] Provider Adult Start: 10-16-2021 Telephone encounter Cecily nogueira PA-C Work Phone: [facility] [place] Comment on above: Results Start: 10-15-2021 End: 10-15-2021 Subsequent hospital visit by physician [facility] Work Phone: Radiology Comment on above: Elevated alkaline ph osphatase level [R74.8] Start: 10-10-2021 Telephone encounter Cecily nogueira PA-C Work Phone: [facility] [place] Comment on above: Results Start: 10-02-2021 Telephone encounter Cecily nogueira PA-C Work Phone: [facility] [place] Comment on above: Results Start: 10-01-2021 End: 10-01-2021 Patient encounter procedure Cecily Coelho PA-C Work Phone: [facility] [place] Comment on above: Well adult exam (Opal riya Dx); Essential hypertension; Mixed hyperlipidemia; Vitamin D deficiency; Tubular adenoma polyp of rectum; Former smoker; LPRD (laryngopharyngeal reflux disease); Carotid stenosis, bilateral; Leg cramp; Screening for diabetes mellitus; Screening mammogram for breast cancer; Need for vaccination; Encounter for immunization Start: 10-01-2021 End: 10-01-2021 Patient encounter status Cecily Coelho PA-C Work Phone: [facility] [place] Start: 07-17-2020 End: 11-04-2023 Patient encounter status Franklin Arias MD Work Phone: [facility] Procedures Date Procedure Procedure Detail Performing Clinician Start: 11-02-[address] López Barrera DO Work Phone: Start: 10-12-2024 Dual energy X-ray absorptiometry Dr. Paula Barrera DO Work Phone: Start: 09-27-2024 Computed tomography of abdomen and pelvis with contrast Dr. Paula Barrera DO Work Phone: Start: 11-04-2023 Adult depression scr eening assessment [facility] [place] Work Phone: Start: 11-04-2023 Lipid 1996 panel - S rocky or Plasma Hollie Hoover APRN.[employer] SET UP OPERATOR Work Phone: Start: 09-02-2023 Ultrasound elastogra phy of liver DEVAUGHN CANTOR Work Phone: Start: 08-25-2023 Arthrocentesis aspir &/inj major jt/bursa w/o us Shantal Galan PA-C Work Phone: Start: 08-25-2023 Radex spine cervical 4 or 5 views Shantal Galan PA-C Work Phone: Start: 06-19-2023 Radex shoulder compl ete minimum 2 views Sudha Parsons HAIRSPRING TRUER.[employer] SET UP OPERATOR Work Phone: Start: 12-10-2022 End: 12-10-2022 Mammography Cecily Nixon Work Phone: Start: 10-08-2022 Lipid 1996 panel - S rocky or Plasma Sudha Parsons HAIRSPRING TRUER.[employer] SET UP OPERATOR Work Phone: Start: 06-25-2022 CBC W/DIFF/PLT ([facility]) [facility] Start: 06-25-2022 Comprehensive metabo lic 2000 panel - Serum or Plasma [facility] Start: 05-20-2022 Radiologic exam knee complete 4/more views Hal Desai MD Work Phone: Start: 05-07-2022 Radex spine lumbosac ral 2/3 views Cecily Coelho PA-C Work Phone: Start: 04-29-2022 INFLUENZA VACCINE QUADRIVALENT 6 MO - 64 YRS IM Cecily Coelho PA-C Work Phone: Start: 04-29-2022 PFIZER-BIONTECH COVI D-19 BIVALENT BOOSTER VACCINE, AGE 12+ YR Cecily Coelho PA-C Work Phone: Start: 03-12-2022 Colonoscopy flx dx w /collj spec when pfrmd David Palmer MD Work Phone: Start: 03-12-2022 Colonoscopy Riley orlando MD Work Phone: Start: 02-05-2022 Biopsy/Inj or Needle Placement DEVAUGHN CANTOR Work Phone: Start: 01-22-2022 Hemoglobin A1c/Hemoglobin.total in Blood [facility] Start: 01-15-2022 Ultrasonography of abdomen DEVAUGHN CANTOR Work Phone: Start: 01-15-2022 Ultrasound elastography PA Cecily CANTOR Work Phone: Start: 01-08-2022 Adult depression scr eening assessment Cecily CANTOR-C Work Phone: Start: 12-24-2021 Colon ca scrn not hi rsk ind Florencia Graf CANTOR-C Work Phone: Start: 12-24-2021 Colonoscopy David marlow MD Work Phone: Start: 11-07-2021 Mri abdomen w/o & w/ contrast material Cecily COBBC Work Phone: Start: 10-29-2021 SRINATH SCREENING W JENNIFER Ra codey CANTOR-C Work Phone: Start: 10-29-2021 Mammography Screen Wst r Start: 10-15-2021 Us abdominal real ti me w/image limited Cecily COBBC Work Phone: Start: 04-11-2020 Mammography Cecily CANTOR-C Work Phone: Start: 01-27-2017 Colonoscopy Cecily CANTOR-C Work Phone: Start: 02-01-2016 Adult depression scr eening assessment Cecily CANTOR-C Work Phone: Plan of Treatment Date Care Activity Detail Author Start: 2032 RSV Vaccine (1 - 1-dose 75+ series) RSV Vaccine (1 - 1-dose 75+ series) [facility] Start: 10-02-2031 Urine microalbumin profile [facility] Start: 11-03-2028 Lipid panel Lipid Screening [facility] Start: 10-09-2027 Lipid 1996 panel - Serum or Plasma Lipid Screening [facility] Start: 10-09-2027 Lipid panel Lipid Screening [facility] Start: 10-09-2027 LIPID SCREEN LIPID SCREEN [facility] Start: 04-09-2027 LIPID SCREEN LIPID SCREEN [facility] Start: 11-03-2026 Diabetes Screening Diabetes Screening [facility] Start: 03-21-2027 LIPID SCREEN LIPID SCREEN [facility] Start: 04-14-2026 Diabetes Screening Diabetes Screening [facility] Start: 02-05-2026 LIPID SCREEN LIPID SCREEN [facility] Start: 10-24-2025 HPV TESTING HPV TESTING [facility] Start: 10-24-2025 PAP TESTING PAP TESTING [facility] Start: 10-08-2025 DIABETES SCREEN DIABETES SCREEN [facility] Start: 06-25-2025 DIABETES SCREEN DIABETES SCREEN [facility] Start: 04-09-2025 DIABETES SCREEN DIABETES SCREEN [facility] Start: 03-14-2025 Influenza vaccination Influenza Vaccine (Season Ended) [facility] Start: 03-12-2025 Colonoscopy COLONOSCOPY [facility] Start: 03-12-2025 COLORECTAL CANCER SCREENING COLORECTAL CANCER SCREENING [facility] Start: 01-22-2025 DIABETES SCREEN DIABETES SCREEN [facility] Start: 01-08-2025 DIABETES SCREEN DIABETES SCREEN [facility] Start: 12-24-2024 Colonoscopy COLONOSCOPY [facility] Start: 12-24-2024 COLORECTAL CANCER SCREENING COLORECTAL CANCER SCREENING [facility] Start: 12-14-2024 Screening for malignant neoplasm of breast Mammogram Screening [facility] Start: 11-09-2024 BP Controlled (<130/80) BP Controlled (<130/80) [facility] in Start: 11-03-2024 Annual PCP Team Chronic Disease Visit Annual PCP Team Chronic Disease Visit [facility] Start: 11-03-2024 Anxiety Screening Anxiety Screening [facility] Start: 11-03-2024 Depression Screening Depression Screening [facility] Start: 11-03-2024 RSV Vaccine (1 - 1-dose 60+ series) RSV Vaccine (1 - 1-dose 60+ series) [facility] Comment on above: Postponed from 2017 (Insurance Cov erage) Start: 11-03-2024 Screening for osteoporosis Bone Density Screening [facility] Comment on above: Postponed from 2022 (Declined at t his time) Start: 10-08-2024 DIABETES SCREEN DIABETES SCREEN [facility] Start: 10-01-2024 DIABETES SCREEN DIABETES SCREEN [facility] Start: 07-14-2024 Advance Directive Discussion Advance Directive Discussion [facility] Start: 07-14-2024 Medicare Advantage Annual Wellness Visit Medicare Advantage Annual Wellness Visit [facility] Start: 06-19-2024 Annual PCP Team Chronic Disease Visit Annual PCP Team Chronic Disease Visit [facility] Start: 06-19-2024 BP Controlled (<130/80) BP Controlled (<130/80) [facility] Start: 05-04-2024 End: 05-04-2024 Patient encounter procedure 05/04/2024 1:40 PM EDT Office Visit [facility] [place] [address] [place] [address] Cecily Coelho PA-C [address] [facility] [place] [id number] 6 month follow up [facility] [place] Comment on above: 6 month follow up Start: 04-14-2024 Annual PCP Team Chronic Disease Visit Annual PCP Team Chronic Disease Visit [facility] Start: 03-14-2024 Covid-19 Vaccine ( season) Covid-19 Vaccine ( season) [facility] Start: 03-14-2024 Covid-19 Vaccine () Covid-19 Vaccine () [facility] Start: 03-14-2024 Influenza [facility] Start: 02-11-2024 End: 02-11-2024 Patient encounter procedure 02/11/2024 8:00 AM EDT Office Visit NATIONAL COVERAGE SPECIALIST [facility] [address] [facility] [address] [place] [address] Miryea Huitron MD [address] [facility] [address] [place] [address] Uterovaginal prolapse [N81.4] [employer] COVERAGE SPECIALIST [facility] Comment on above: Uterovaginal prolapse [N81.4] Start: 02-06-2024 DIABETES SCREEN DIABETES SCREEN [facility] Start: 12-15-2023 End: 12-15-2023 Patient encounter procedure 12/15/2023 11:10 AM EDT Appointment Mammogram [address] [place] [id number] Encounter for screening mammogram for breast cancer [Z12.31] Mammogram Comment on above: Encounter for screening mammogram for br east cancer [Z12.31] Start: 12-11-2023 Mammography [facility] Start: 12-11-2023 Screening for malignant neoplasm of breast Mammogram Screening [facility] Start: 11-10-2023 End: 11-10-2023 Patient encounter procedure 11/10/2023 10:45 AM EDT Office Visit OB/Gynecology [address] [place] [address] Hollie Hoover APRN.[employer]RILL PR[employer] SET UP OPERATOR [address] [place] [address] Patient noticing a bulge from her vagina. No pain. OB/Gynecology Comment on above: Patient noticing a bulge from her vagina . No pain. Start: 11-04-2023 End: 02-03-2024 25-hydroxyvitamin D3 [Mass/volume] in Serum or Plasma [facility] Comment on above: Expected: 11/04/2023, Expires: Start: 11-04-2023 End: 02-03-2024 Cobalamin (Vitamin B12) [Mass/volume] in Serum or Plasma [facility] Comment on above: Expected: 11/04/2023, Expires: Start: 11-04-2023 End: 02-03-2024 Comprehensive metabolic 2000 panel - Serum or Plasma [facility] Comment on above: Expected: 11/04/2023, Expires: Start: 11-04-2023 End: 02-03-2024 LIPID PANEL, NONFASTING [facility] Comment on above: Expected: 11/04/2023, Expires: Start: 11-04-2023 End: 02-03-2024 Magnesium [Mass/volume] in Serum or Plasma [facility] Comment on above: Expected: 11/04/2023, Expires: Start: 10-09-2023 ANNUAL PCP TEAM CHRONIC DISEASE VISIT ANNUAL PCP TEAM CHRONIC DISEASE VISIT [facility] Start: 09-02-2023 X-ray of both feet Foot min 3 Views [facility] Start: 08-15-2023 Covid-19 Vaccine (6 - Pfizer series) Covid-19 Vaccine (6 - Pfizer series) [facility] Start: 08-15-2023 Covid-19 Vaccine () Covid-19 Vaccine () [facility] Start: 07-14-2023 Advance Directive Discussion Advance Directive Discussion [facility] Start: 07-14-2023 Behavioral Health Screening Behavioral Health Screening [facility] Start: 07-14-2023 Depression Assessment Depression Assessment [facility] Start: 06-03-2023 ANNUAL PCP TEAM CHRONIC DISEASE VISIT ANNUAL PCP TEAM CHRONIC DISEASE VISIT [facility] Start: 06-03-2023 BP CONTROLLED (<130/80) BP CONTROLLED (<130/80) [facility] Start: 05-20-2023 BP CONTROLLED (<130/80) BP CONTROLLED (<130/80) [facility] Start: 05-07-2023 ANNUAL PCP TEAM CHRONIC DISEASE VISIT ANNUAL PCP TEAM CHRONIC DISEASE VISIT [facility] Start: 04-22-2023 End: 06-22-2023 Basic metabolic 2000 panel - Serum or Plasma BASIC METABOLIC PNL Lab Routine Hypokalemia Expected: 04/22/2023, Expires: 06/22/2023 [facility] Work Phone: Comment on above: Expected: 04/22/2023, Expires: Start: 04-09-2023 ANNUAL PCP TEAM CHRONIC DISEASE VISIT ANNUAL PCP TEAM CHRONIC DISEASE VISIT [facility] Start: 03-14-2023 Influenza vaccination INFLUENZA (#1) [facility] Start: 03-12-2023 Colonoscopy COLONOSCOPY [facility] Start: 03-12-2023 COLORECTAL CANCER SCREENING COLORECTAL CANCER SCREENING [facility] Start: 03-12-2023 Screening for malignant neoplasm of colon [facility] Start: 01-08-2023 Adult depression screening assessment DEPRESSION SCREENING [facility] Start: 01-08-2023 ANNUAL PCP TEAM CHRONIC DISEASE VISIT ANNUAL PCP TEAM CHRONIC DISEASE VISIT [facility] Start: 01-08-2023 BP CONTROLLED (<130/80) BP CONTROLLED (<130/80) [facility] Start: 12-25-2022 ANNUAL PCP TEAM CHRONIC DISEASE VISIT ANNUAL PCP TEAM CHRONIC DISEASE VISIT [facility] Start: 12-03-2022 SHINGRIX VACCINE (2 of 2) SHINGRIX VACCINE (2 of 2) [facility] Start: 10-29-2022 Mammography MAMMOGRAM [facility] Start: 10-08-2022 End: 12-08-2022 25-hydroxyvitamin D3 [Mass/volume] in Serum or Plasma [facility] Work Phone: Comment on above: Expected: 10/08/2022, Expires: 3 Start: 10-08-2022 End: 12-08-2022 Cobalamin (Vitamin B12) [Mass/volume] in Serum or Plasma [facility] Work Phone: Comment on above: Expected: 10/08/2022, Expires: 3 Start: 10-08-2022 End: 12-08-2022 Comprehensive metabolic 2000 panel - Serum or Plasma [facility] Work Phone: Comment on above: Expected: 10/08/2022, Expires: 3 Start: 10-08-2022 End: 12-08-2022 Hemoglobin A1c in Blood [facility] Work Phone: Comment on above: Expected: 10/08/2022, Expires: 3 Start: 10-08-2022 End: 12-08-2022 LIPID PANEL, NONFASTING [facility] Work Phone: Comment on above: Expected: 10/08/2022, Expires: 3 Start: 10-01-2022 ANNUAL PCP TEAM CHRONIC DISEASE VISIT ANNUAL PCP TEAM CHRONIC DISEASE VISIT [facility] Start: 10-01-2022 HEPATITIS C SCREENING HEPATITIS C SCREENING [facility] Comment on above: Postponed from 1975 (Declined at t his time) Start: 10-01-2022 HIV SCREENING HIV SCREENING [facility] Comment on above: Postponed from 1975 (Declined at t his time) Start: 10-01-2022 PNEUMOCOCCAL: 65+ (2 - PPSV23 if available, else PCV20) PNEUMOCOCCAL: 65+ (2 - PPSV23 if available, else PCV20) [facility] Start: 08-30-2022 COVID-19 VACCINE (6 - Pfizer series) COVID-19 VACCINE (6 - Pfizer series) [facility] Start: 01-22-2023 ADVANCE DIRECTIVE DISCUSSION ADVANCE DIRECTIVE DISCUSSION [facility] Start: 2022 BONE DENSITY BONE DENSITY [facility] Start: 2022 Bone Density Screening Bone Density Screening [facility] Start: 2022 Screening for osteoporosis Bone Density Screening [facility] Start: 07-14-2022 DEPRESSION ASSESSMENT DEPRESSION ASSESSMENT [facility] Start: 07-09-2022 Ultrasonography of abdomen Abdomen Limited [facility] Work Phone: Start: 07-09-2022 Ultrasound elastography [facility] Work Phone: Start: 07-09-2022 US Abdomen limited [facility] Work Phone: Start: 04-26-2022 End: 06-26-2022 25-hydroxyvitamin D3 [Mass/volume] in Serum or Plasma VITAMIN D 25 HYDROXY Lab Routine Vitamin D deficiency Expected: 04/26/2022, Expires: 06/26/2022 [facility] Work Phone: Comment on above: Expected: 04/26/2022, Expires: 2 Start: 04-26-2022 End: 06-26-2022 Comprehensive metabolic 2000 panel - Serum or Plasma COMP METABOLIC PANEL Lab Routine Essential hypertension Mixed hyperlipidemia Expected: 04/26/2022, Expires: 06/26/2022 [facility] Work Phone: Comment on above: Expected: 04/26/2022, Expires: 2 Start: 04-26-2022 End: 06-26-2022 Hemoglobin A1c in Blood HGB A1C Lab Routine Elevated fasting glucose Expected: 04/26/2022, Expires: 06/26/2022 [facility] Work Phone: Comment on above: Expected: 04/26/2022, Expires: 2 Start: 04-26-2022 End: 06-26-2022 LIPID PANEL, NONFASTING LIPID PANEL, NONFASTING Lab Routine Essential hypertension Mixed hyperlipidemia Expected: 04/26/2022, Expires: 06/26/2022 [facility] Work Phone: Comment on above: Expected: 04/26/2022, Expires: 2 Start: 04-09-2022 End: 06-09-2022 Magnesium [Mass/volume] in Serum or Plasma [facility] Work Phone: Comment on above: Expected: 04/09/2022, Expires: 2 Start: 03-14-2022 Influenza vaccination [facility] Start: 02-05-2022 Biopsy liver needle percutaneous NEEDLE BIOPSY OF LIVER [facility] Work Phone: Start: 02-05-2022 Catheterization of vein [facility] Work Phone: Start: 02-05-2022 Oxygen therapy [facility] Work Phone: Start: 02-05-2022 Patient discharge [facility] Work Phone: Start: 02-05-2022 Vital signs measurements [facility] Work Phone: Start: 02-05-2022 Following clinical pathway protocol [facility] Work Phone: Start: 01-23-2022 End: 03-25-2022 POTASSIUM BLD POTASSIUM BLD Lab Routine Hypokalemia Expected: 01/23/2022, Expires: 03/25/2022 [facility] Work Phone: Comment on above: Expected: 01/23/2022, Expires: 2 Start: 01-10-2022 Influenza vaccination INFLUENZA (#1) [facility] Comment on above: Postponed from 03/14/2021 (Declined at t his time) Start: 01-08-2022 End: 03-10-2022 25-hydroxyvitamin D3 [Mass/volume] in Serum or Plasma [facility] Work Phone: Comment on above: Expected: 01/08/2022, Expires: 2 Start: 01-08-2022 End: 03-10-2022 Cobalamin (Vitamin B12) [Mass/volume] in Serum or Plasma [facility] Work Phone: Comment on above: Expected: 01/08/2022, Expires: 2 Start: 01-08-2022 End: 03-10-2022 Comprehensive metabolic 2000 panel - Serum or Plasma [facility] Work Phone: Comment on above: Expected: 01/08/2022, Expires: 2 Start: 01-08-2022 End: 03-10-2022 Magnesium [Mass/volume] in Serum or Plasma [facility] Work Phone: Comment on above: Expected: 01/08/2022, Expires: 2 Start: 12-12-2021 COVID-19 VACCINE (5 - Booster for Pfizer series) COVID-19 VACCINE (5 - Booster for Pfizer series) [facility] Start: 12-06-2021 End: 12-20-2021 SARS-CoV-2 (COVID-19) RNA [Presence] in Respiratory specimen by KEL with probe detection 2019 CORONAVIRUS Microbiology Routine URI, acute Expected: 12/06/2021, Expires: 12/20/2021 [facility] Work Phone: Comment on above: Expected: 12/06/2021, Expires: 2 Start: 10-16-2021 End: 12-16-2021 Mitochondria Ab [Presence] in Serum by Immunofluorescence MITOCHONDRIAL AB PNL SCRN Lab Routine Elevated alkaline phosphatase level Abnormal results of liver function studies Elevated serum GGT level Expected: 10/16/2021, Expires: 12/16/2021 [facility] Work Phone: Comment on above: Expected: 10/16/2021, Expires: 2 Start: 10-02-2021 End: 12-02-2021 ALK PHOS ISOENZYM BL ALK PHOS ISOENZYM BL Lab Routine Elevated alkaline phosphatase level Expected: 10/02/2021, Expires: 12/02/2021 [facility] Work Phone: Comment on above: Expected: 10/02/2021, Expires: 2 Start: 10-02-2021 End: 12-02-2021 Gamma glutamyl transferase [Enzymatic activity/volume] in Serum or Plasma GGT BLD Lab Routine Elevated alkaline phosphatase level Expected: 10/02/2021, Expires: 12/02/2021 [facility] Work Phone: Comment on above: Expected: 10/02/2021, Expires: 2 Start: 10-01-2021 End: 12-01-2021 CBC W Auto Differential panel - Blood [facility] Work Phone: Comment on above: Expected: 10/01/2021, Expires: 2 Start: 10-01-2021 End: 12-01-2021 Comprehensive metabolic 2000 panel - Serum or Plasma [facility] Work Phone: Comment on above: Expected: 10/01/2021, Expires: 2 Start: 10-01-2021 End: 12-01-2021 Hemoglobin A1c/Hemoglobin.total in Blood [facility] Work Phone: Comment on above: Expected: 10/01/2021, Expires: 2 Start: 10-01-2021 End: 12-01-2021 LIPID PANEL, NONFASTING [facility] Work Phone: Comment on above: Expected: 10/01/2021, Expires: 2 Start: 10-01-2021 End: 12-01-2021 Magnesium [Mass/volume] in Serum or Plasma [facility] Work Phone: Comment on above: Expected: 10/01/2021, Expires: 2 Start: 10-01-2021 End: 12-01-2021 Urinalysis complete panel - Urine [facility] Work Phone: Comment on above: Expected: 10/01/2021, Expires: 2 Start: 10-01-2021 End: 12-01-2021 VITAMIN B12 BLOOD [facility] Work Phone: Comment on above: Expected: 10/01/2021, Expires: 2 Start: 10-01-2021 End: 12-01-2021 VITAMIN D 25 HYDROXY [facility] Work Phone: Comment on above: Expected: 10/01/2021, Expires: 2 Start: 07-14-2021 DEPRESSION ASSESSMENT DEPRESSION ASSESSMENT [facility] Start: 04-11-2021 Mammography MAMMOGRAM [facility] Start: 01-28-2020 Colonoscopy COLONOSCOPY [facility] Start: 01-28-2020 COLORECTAL CANCER SCREENING COLORECTAL CANCER SCREENING [facility] Start: 2017 RSV Vaccine (1 - 1-dose 60+ series) RSV Vaccine (1 - 1-dose 60+ series) [facility] Start: 01-31-2017 Adult depression screening assessment DEPRESSION SCREENING [facility] Start: 09-01-2014 FECAL OCCULT BLOOD FECAL OCCULT BLOOD [facility] Start: 09-01-2014 Screening for malignant neoplasm of colon Fecal Occult Blood [facility] Start: 2007 SHINGRIX VACCINE (1 of 2) SHINGRIX VACCINE (1 of 2) [facility] Start: 2002 COLOGUARD (FIT-DNA) COLOGUARD (FIT-DNA) [facility] Start: [address] COLONOGRAPHY [facility] Start: 2002 Screening for malignant neoplasm of colon [facility] Start: 2002 SIGMOIDOSCOPY SIGMOIDOSCOPY [facility] Start: 1976 ONE PNEUMOVAX PRIOR TO AGE 65 ONE PNEUMOVAX PRIOR TO AGE 65 [facility] Start: 1975 BP CONTROLLED (<130/80) BP CONTROLLED (<130/80) [facility]ic 25-hydroxyvitamin D3 [Mass/volume] in Serum or Plasma VITAMIN D 25 HYDROXY Lab Routine Vitamin D deficiency 04/09/2022 9:58 AM EDT [facility] Work Phone: Comprehensive metabo lic 2000 panel - Serum or Plasma COMP METABOLIC PANEL Lab Routine Essential hypertension Mixed hyperlipidemia 04/09/2022 9:58 AM T [facility] Work Phone: Hemoglobin A1c in Blood HGB A1C Lab Routine Elevated fasting glucose 04/09/2022 9:58 AM T [facility] Work Phone: LIPID PANEL, NONFASTING LIPID PA SACHA, NONFASTING Lab Routine Essential hypertension Mixed hyperlipidemia 04/09/2022 9:58 AM [facility] Work Phone: Liver stiffness by US.transient elastography [facility] End: 11-07-2023 SRINATH SCREENING SRINATH SCREENING Radiology Routine Encounter for screening mammogram for breast cancer 1 Occurrences starting 10/08/2022 until 11/07/2023 [facility] Work Phone: Comment on above: 1 Occurrences starting 10/08/2022 until 11/07/2023 End: 10-31-2022 SRINATH SCREENING W JENNIFER SRINATH SCREENING W JENNIFER Radiology Routine Screening mammogram for breast cancer 1 Occurrences starting 10/01/2021 until 10/31/2022 [facility] Work Phone: Comment on above: 1 Occurrences starting 10/01/2021 until 10/31/2022 SRINATH SCREENING W JENNIFER SRINATH SCREENI NG W JENNIFER Radiology Routine Screening mammogram for breast cancer 10/29/2021 2:05 PM EDT [facility] Work Phone: End: 12-02-2024 MG Breast Screening SRINATH SCREENING Radiology Routine Encounter for screening mammogram for breast cancer 1 Occurrences starting 11/04/2023 until 12/02/2024 [facility] Work Phone: Comment on above: 1 Occurrences starting 11/04/2023 until 12/02/2024 MG Breast Screening SRINATH SCREENIN G Radiology Routine Encounter for screening mammogram for breast cancer 12/15/2023 10:47 AM EDT [facility] Work Phone: MR Biliary ducts and Pancreatic duct WO contrast [facility] Work Phone: End: 11-15-2022 Mri abdomen w/o & w/contrast material [facility] Work Phone: Comment on above: 1 Occurrences starting 10/16/2021 until 11/15/2022 Patient Education RAD RN Biopsy Liver Dc RAD RN Procedural Sedation [facility] Work Phone: Patient referral [facility] Work Phone: SURGICAL PATHOLOGY [facility] Work Phone: Comment on above: Release Upon Ordering for 1 Occurrences starting 03/12/2022, 1 completed Ultrasound elastography [facility] Work Phone: US Abdomen limited [facility] Work Phone: End: 11-09-2022 Us abdominal real time w/image limited US ABD RT UPPER QUADRANT Radiology Routine Elevated alkaline phosphatase level 1 Occurrences starting 10/10/2021 until 11/09/2022 [facility] Work Phone: Comment on above: 1 Occurrences starting 10/10/2021 until 11/09/2022 End: 04-09-2023 US CAROTID ARTERIES [facility] US CAROTID ARTERIES [facility] Vascular Lab Routine Carotid stenosis, bilateral 1 Occurrences starting 04/09/2022 until 04/09/2023 [facility] Work Phone: Comment on above: 1 Occurrences starting 04/09/2022 until 04/09/2023 [facility] Immunizations Immunization Date Immunization Notes Care Provider [place] 04-14-2023 COVID-19 vaccine, ag e 12+ yr, season (MED[employer]iary) Sudha Parsons APRN.DRILL PRESS SET UP OPERATOR Work Phone: [facility] 04-14-2023 zoster vaccine recombinant Sudha Parsons APRN.DRILL PRESS SET UP OPERATOR Work Phone: [facility] 03-21-2023 influenza, high dose seasonal, preservative-free O[place] Man HAIRSPRING TRUER.DRILL PRESS SET UP OPERATOR Work Phone: [facility] 03-21-2023 influenza virus vacc ine, unspecified formulation Xr [place] Work Phone: [facility] 10-08-2022 pneumococcal polysaccharide vaccine, 23 valent Cecily Coelho PA-C Work Phone: [facility] 10-08-2022 zoster vaccine recombinant Cecily Coelho PA-C Work Phone: [facility] 04-29-2022 COVID-19 booster vaccine, age 12+ yr, bivalent (PFIZER-BIONTECH) Wy Nurse Work Phone: [facility] Work Phone: 04-29-2022 influenza, injectabl e, quadrivalent, contains preservative Wy Nurse Work Phone: [facility] Work Phone: 10-01-2021 pneumococcal conjuga te vaccine, 13 valent Cecily Coelho PA-C Work Phone: [facility] 10-01-2021 tetanus toxoid, redu patricia diphtheria toxoid, and acellular pertussis vaccine, adsorbed Cecily Coelho PA-C Work Phone: [facility] 10-18-2020 COVID-19 vaccine, ag e 12+ yr (PFIZER-BIONTECH - PURPLE TOP) Cecily Coelho PA-C Work Phone: [facility] Work Phone: 09-27-2020 COVID-19 vaccine, ag e 12+ yr (PFIZER-BIONTECH - PURPLE TOP) Cecily Coelho PA-C Work Phone: [facility] Work Phone: 06-13-2020 influenza, seasonal, injectable Cecily COBBC Work Phone: [facility] 08-12-2016 influenza, injectabl e, quadrivalent, contains preservative Cecily Coelho PA-C Work Phone: [facility] 07-06-2015 influenza, injectabl e, quadrivalent, contains preservative Cecily Coelho PA-C Work Phone: [facility] 05-23-2014 influenza, seasonal, injectable Cecily Coelho PA-C Work Phone: [facility] 12-14-2007 tetanus and diphther ia toxoids, adsorbed, preservative free, for adult use (2 Lf of tetanus toxoid and 2 Lf of diphtheria toxoid) Cecily Coelho PA-C Work Phone: [facility] Payers Date Payer Category Payer Private Health Insurance [id number] 2024 Self-pay [id number] 2023 Medicare (Managed Care) [id number] 2022 Medicare MEDICARE MEDICAR E A AND B [id number] 2022-Present [phone] [address] [address] [place] [address] Medicare [id number] 2019 Medicaid [employer]ICA[employer] [id number] 2019-Present [phone] [address] [place] [address] Medicaid [id number] 2019 Medicaid [id number] 2013 Private Health Insurance [id number] Medicare MEDICARE PART A B [id number] Unknown [id number] Unknown [id number] Unknown [id number] Unknown [id number] Unknown [id number] Unknown [id number] Unknown [id number] Unknown [id number] Unknown [id number] Unknown [id number] Unknown [id number] Unknown [id number] Unknown [id number] Social History Date Type Detail Facility Start: 07-17-2020 End: 10-29-2024 Tobacco smoking status NHIS Ex-smoker [facility] Start: 07-14-1987 End: 07-14-2012 History of tobacco use Cigarette Smoker [facility] Start: 07-17-2020 End: 10-08-2022 Tobacco use and exposure Smokeless tobacco non-user [facility] Start: 10-01-2021 End: 11-10-2023 Alcohol intake Current non-drinker of alcohol (finding) [facility] Start: 1955 Sex Assigned At Not on file [facility] Start: 09-21-2021 End: 06-03-2022 Exposure to SARS-CoV-2 (event) Not sure [facility] Start: 12-04-2021 End: 08-12-2023 Tobacco smoking status UTIS Unknown if ever smoked [facility] Start: 11-27-[address] [facility] Start: 1955 Sex Assigned At Female [facility] Start: 07-14-1987 End: 07-14-2012 History of tobacco use Current smoker [facility] Start: 03-21-2023 End: 04-14-2023 History of Social function [facility] Work Phone: Start: 03-21-2023 End: 04-14-2023 Tobacco use panel [facility] Work Phone: Adult Depression Screening Assessment 0 [facility] Work Phone: Start: 10-02-2024 End: 11-05-2024 Sex Female (finding) [facility] Functional Status Date Assessment Result Facility 06-06-2014 Are you deaf, or do you have serious difficulty hearing No 06/06/2014 4:50 PM Kanika Funez [facility] No [facility] 06-06-2014 Are you blind, or do you have serious difficulty seeing, even when wearing glasses No 06/06/2014 4:50 PM Kanika Funez [facility] No [facility] 06-06-2014 Do you have serious difficulty walking or climbing stairs No 06/06/2014 4:50 PM Kanika Funez Cma No [facility] 06-06-2014 Do you have difficul ty dressing or bathing No 06/06/2014 4:50 PM Kanika Funez Cma No [facility] 06-06-2014 Because of a physica l, mental, or emotional condition, do you have difficulty doing errands alone such as visiting a physician's office or shopping No 06/06/2014 4:50 PM Kanika Funez Cma [facility] Mental Status Date Assessment Result Facility 02-05-2022 Cognitive function Voice/Name [facility] Work Phone: 06-06-2014 Because of a physica l, mental, or emotional condition, do you have serious difficulty concentrating, remembering, or making decisions No 06/06/2014 4:50 PM Kanika Funez Cma No [facility] Clinical Notes 04-01-2014 to 01-18-2025 Jane Schafer 12/02/2024 12:47 PM EDT Note Date & Type Note Facility 01-18-2025 Note Patient Outreach (FA MPWS) ISABEL SAHNI ([id number]) 1955 F Date Time Provider Department 01/18/25 FRANKLIN ARIAS During your visit today, we recorded the following information about you: Allergies As of Date: 01/18/2025 Noted Allergy Reaction ASA (SALICYLATES) 04/29/2005 4 [...] Hot flashes Date Reviewed: 11/10/2023 Reviewed by: Hollie Hoover APRN.DRILL PRESS SET UP OPERATOR - Fully Assessed Visit Diagnosis:Encounter for screening mammogram for breast cancer [Z12.31] Order(s):[facility] SCREENING W JENNIFER [[id number]] Order #: [id number] FUTURE Prescriptions as of 02/18/2025 - diclofenac (VOLTAREN) 1 % topical gel [...] a week. Problem List As Of Date 01/18/2025 Noted Resolved Essential hypertension [I10] 03/09/2013 Mixed hyperlipidemia [E78.2] 03/22/2013 LPRD (laryngopharyngeal reflux disease) [K21.9] 05/11/2013 Former smoker [Z87.891] 05/11/2013 Right upper quadrant pain [R10.11] 02/14/2014 12/30/2016 Bile leak [K83.9] 04/01/2014 12/30/2016 Obesity, Class I, BMI 30-34.9 [E66.811] 08/31/2015 Carotid stenosis, bilateral [I65.23] 12/30/2016 Well [...] Medication management [Z79.899] 11/04/2023 Encounter Status:Closed by eDossea, Virtual PortsUSER on 02/18/25 [facility] 12-02-2024 Note HNO ID: [id number] Author: ?, ?, ? Service: ? Author Type: ? Type: Progress Notes Filed: 12/30/2024 13:13 Note Text: Hypertension Outreach Isabel Sahni has been identified for clinical review due to having hypertension without an appointment in the past year. PSS Team - Please contact the patient with the following script: Franklin Arias MD has identified that you are in need of ongoing care of your hypertension and have not had a blood pressure visit with us in the last year. We would like to assist you in making an appointment to ensure that we control your blood pressure and keep you as healthy as possible. Outreach Outcome/Action: Unable to reach patient: Left message Note - if they see another provider, please update their chart. [facility] 12-02-2024 History of Present illness Narrative Hypertension Outreach Isabelkatherine Sahni has been identified for clinical review due to having hypertension without an appointment in the past year. PSS Team - Please contact the patient with the following script: Franklin Arias MD has identified that you are in need of ongoing care of your hypertension and have not had a blood pressure visit with us in the last year. We would like to assist you in making an appointment to ensure that we control your blood pressure and keep you as healthy as possible. Outreach Outcome/Action: Unable to reach patient: Left message Note - if they see another provider, please update their chart. documented in this encounter [facility] 12-02-2024 Note Patient Outreach (4C Q) ISABEL SAHNI ([id number]) 1955 F Date Time Provider Department 12/02/24 FRANKLIN ARIAS 4CQ During your visit today, we recorded the following information about you: Jane Schafer 12/30/2024 1:13 PM Signed Hypertension Outreach Isabel Sahni has been identified for clinical review due to having hypertension without an appointment in the past year. PSS Team - Please contact the patient with the following script: Franklin Arias MD has identified that you are in need of ongoing care of your hypertension and have not had a blood pressure visit with us in the last year. We would like to assist you in making an appointment to ensure that we control your blood pressure and keep you as healthy as possible. Outreach Outcome/Action: Unable to reach patient: Left message Note - if they see another provider, please update their chart. Allergies As of Date: 12/02/2024 Noted Allergy Reaction ASA (SALICYLATES) 04/29/2005 4 [...] Hot flashes Date Reviewed: 11/10/2023 Reviewed by: Hollie Hoover APRN.DRILL PRESS SET UP OPERATOR - Fully Assessed Reason for Visit: Blood Pressure Check [195] Prescriptions as of 12/30/2024 - diclofenac (VOLTAREN) 1 % topical gel [...] a week. Problem List As Of Date 12/02/2024 Noted Resolved Essential hypertension [I10] 03/09/2013 Mixed hyperlipidemia [E78.2] 03/22/2013 LPRD (laryngopharyngeal reflux disease) [K21.9] 05/11/2013 Former smoker [Z87.891] 05/11/2013 Right upper quadrant pain [R10.11] 02/14/2014 12/30/2016 Bile leak [K83.9] 04/01/2014 12/30/2016 Obesity, Class I, BMI 30-34.9 [E66.811] 08/31/2015 Carotid stenosis, bilateral [I65.23] 12/30/2016 Well [...] Medication management [Z79.899] 11/04/2023 Encounter Status:Closed by JANE SCHAFER on 12/30/24 [facility] 11-02-2024 Radiology Diagnostic study note [facility] Services [address] [place] [address] Pelvic (Non ) MR#: [id number] Acct: [id number] Name: ISABEL SAHNI Rep #: [id number] : 1955 From: Delta Brown MD PCP: Dr. Paula Barrera DO Status: RE G CLI Study:Pelvic (Non ) Date of Exam: 11/02/24 Exam# [id number] Ordering Dr: Ina Chapin MD PROCEDURE: PELVIC (NON ) 11/02/2024 REASON FOR EXAM: UTERINE PROLAPSE TECHNIQUE: Transabdominal pelvic ultrasound FINDINGS: Measurements: Uterus: 9.3 x 4.2 x 3.4 with a volume of mL Endometrial Thickness: 4 mm Right Ovary: 2.1 x 1.6 x 1.6 with a volume of mL. Left Ovary: 2.7 x 2.3 x 1.4 with a volume of mL. Uterus: Slightly retroflexed. Normal echogenicity. Endometrium: Unremarkable. Right ovary: Normal size and echotexture. Left ovary: Normal size and echotexture. Other: US/Pelvic (Non ) IMPRESSION: NORMAL TRANSABDOMINAL PELVIC ULTRASOUND. Reading Location: [id number] CC: Dr. Paula Barrera DO; Dr. Ina Leon MD ~ Hair Boiler Operator: Signed [facility] 10-29-2024 Evaluation note Diagnosis Onset Date Resolution Incomplete uterovaginal prolapse acute October 29, 2024 10:27am [facility] Work Phone: 1(474) 987-612603-17-2025 Radiology Diagnostic study note [facility] Services [address] [place] [id number] Abdomen/Pelvis WITH Contrast MR#: [id number] Acct: [id number] Name: ISABEL SAHNI Rep #: [id number] : 1955 F 69 From: Renu Pate MD PCP: Dr. Paula Barrera, DO Status: RE G CLI Study:Abdomen/Pelvis WITH Contrast Date of Ex am: 09/27/24 Exam# [id number] Ordering Dr: Inna Hutchinson MD PROCEDURE: ABDOMEN/PELVIS WITH CONTRAST 09/27/2024 REASON FOR EXAM: PANCRATIC CYST TECHNIQUE: CT abdomen and pelvis was performed with IV contrast. Multiplanar reformats were generated. PATIENT PREPARATION: Per protocol ORAL CONTRAST TYPE: Administered, however type and volume information is not provided. CONTRAST: Isovue-300 VOLUME: 98ML One or more dose reduction techniques were used (e.g., Automated exposure control, adjustment of the mA and/or kV according to patient size, use of iterative reconstruction technique. RADIATION DOSE SUMMARY: CTDlvol: 18.23 mGy DLP: 1000.54 mGycm COMPARISON: 08/12/2022. Images only are available for review, the report is not available at the time of dictation.. FINDINGS: Lung bases: Coronary atherosclerosis and/or stents. Aortic annular calcification.. Liver: Unremarkable. Spleen: Unremarkable. Gallbladder: Cholecystectomy. A small cystic focus immediately posterior to andabutting the common hepatic duct/CBD is grossly unchanged, roughly 1.6 cm, much better seen previously. Pancreas: Unremarkable. Punctate T2 bright presumed cysts seen on MRCP 08/12/2022 are probably too small to visualize by CT. No ductal dilatation. Adrenals: Unremarkable. Kidneys: Indeterminate exophytic 2.2 cm posterior right lower pole renal lesion was present previously and was partially imaged on many sequences, questionably minimally enlarged from 1.7 cm previously although only imaged in its entirety in the coronal plane at that time. Bowel: Mild diverticulosis. Appendix not identified. Lymph nodes: Unremarkable. Vasculature: Atherosclerosis. Mild multifocal ectasia of the infrarenal abdominal aorta.. Peritoneum: Trace pelvic free fluid. Bladder: Bladder wall thickening slightly disproportionate to underdistention. Reproductive Organs: 2.1 cm left adnexal cyst, incompletely characterized by CT. Body Wall: Small fat containing left femoral hernia. Small fat containing infraumbilical hernia to the right of midline. Tiny fat containing umbilical hernia.. Bones: Demineralization. Multilevel spondylosis. Variable spinal canal stenoses up to at least moderate/severe at L2-L3. Lumbar levoscoliosis. Fiindings suggestive of diffuse idiopathic skeletal hyperostosis. Nonspecific1.2 cm faintly sclerotic lesion in the right iliac bone. CT/Abdomen/Pelvis WITH Contrast IMPRESSION: 1. Correlate for mild cystitis. 2. No pancreatic cyst or ductal dilatation is evident by CT. A 1.7 cm cystic structure posterior tothe and abutting the common hepatic duct/CBD is grossly unchanged by CT since MRCP of 08/12/2022, but was much better evaluatedpreviously. 3. Possible minimal enlargement of an indeterminate 2.2 cm right renal lesion, possible hemorrhagic/proteinaceous cyst however this is not definite. Recommend targeted renal ultrasound and consideration of multiphase renal protocol CT or MRI with and without contrast if this does not appear definitely cystic. 4. 2.1 cm left adnexal cyst incompletely characterized by CT. Recommend pelvic ultrasound. 5. 1.2 cm faintly sclerotic lesion in the right iliac bone, nonspecific in the absence of known malignancy, possible faintly sclerotic bone island. Correlate with medical history and follow-up as indicated. 6. Trace pelvic free fluid, nonspecific but unexpected in a presumed postmenopausal female. 7. Additional description as above. Reading Location: [id number] CC: Dr. Paula Barrera DO; Dr. Migue Hutchinson MD ~ Hair Boiler Operator: Signed [facility]06-25-2024 Telephone encounter Note* Telephone Encounter - Luz Elena Bernstein RN - 01/06/2024 2:41 PM EDT Called and spoke with Yane villareal at [facility] in [place]. She states she just spoke with ptand told her she should have plenty of [...] been discontinued. And pt is to call [facility] to get her refills when it is time. Pt verbalizes understanding. [facility]06-25-2024 Miscellaneous Notes* Telephone Encounter - Luz Elena Bernstein RN - 01/06/2024 2:41 PM EDT Called and spoke with Yane villareal at [facility] in [place]. She states she just spoke with ptand told her she should have plenty of [...] been discontinued. And pt is to call [facility] to get her refills when it is time. Pt verbalizes understanding. * Telephone Encounter - Derrick Welch Mariya Yu - 01/06/2024 2:25 PM EDT Prescription Refill Information The patient has been [...] Mariya Welch January 06, 2024 2:25 PM * Telephone Encounter - Hope Velarde - 01/06/2024 2:02 PM EDT Prescription Refill Information The patient has been [...] 06, 2024 2:08 PM documented in this encounterBl[facility]06-[facility] Telephone encounter Note * Telephone Encounter - Mariya Tate - 01/06/2024 2:25 PM EDT Prescription Refill Information The patient has been [...] Mariya Welch January 06, 2024 2:25 PM [facility]06-25-2024 Telephone encounter Note* Telephone Encounter - Hope Velarde - 01/06/2024 2:02 PM EDT Prescription Refill Information The patient has been [...] Hope Mario January 06, 2024 2:08 PM [facility]06-04-2024 Telephone encounter Note* Telephone Encounter - Patricia Rasheed LPN - 12/16/2023 2:00 PM EDT Pt notified of mgm results & voiced understanding. Patricia Rasheed LPN [facility]06-04-2024 Miscellaneous Notes* Telephone Encounter - Patricia Rasheed LPN - 12/16/2023 2:00 PM EDT Pt notified of mgm results & voiced understanding. Patricia Rasheed LPN * Telephone Encounter - Franklin Arias MD - 12/16/2023 12:52 PM EDT Let patient know mammogram was ok documented in this encounterBlanchard [facility] System06-04-2024 Telephone encounter Note * Telephone Encounter - Franklin Arais MD - 12/16/2023 12:52 PM EDT Let patient know mammogram was ok [facility]06-04-2024 Note* Letter - Coordinator, Mammography - 12/16/2023 10:16 AM EDT December 16, 2023 PID: [id number] Isabel Sahni [address] [place] [address] Dear Ms. Sahni, We are pleased to [...] report will be kept on file at [facility] as part of your permanent medical record and are available for your continuing care. Thank you for allowing us to help in meeting your health care needs. Sincerely, Dr. Mustafa Interpreting Radiologist [facility] (Normal over 40) [facility]06-04-2024 Miscellaneous Notes* Letter - Coordinator, Mammography - 12/16/2023 10:16 AM EDT December 16, 2023 PID: [id number] Isabel Sahni [address] [place] [address] Dear Ms. Sahni, We are pleased to [...] report will be kept on file at [facility] as part of your permanent medical record and are available for your continuing care. Thank you for allowing us to help in meeting your health care needs. Sincerely, Dr. Mustafa Interpreting Radiologist [facility] (Normal over 40) documented in this encounterBlanchard Valley Health System06-03-2024 History of Present illness Narrative* Raisa Hackett Mammo Tech - 12/15/2023 11:10 AM EDT Radiology Service Progress Note PATIENT NAME: Isabel Sahni DATE OF SERVICE: December 15, 2023 TIME: 10:49 AM PATIENT IDENTITY VERIFICATION COMPLETED USING TWO (2) IDENTIFIERS: Name and Date of confirmedby patient verbally. FALL SCREENING: Has the patient had 2 falls in the last year or 1 fall with injury or currently using an Ambulatory Assistive Device (Walker, Cane, Wheelchair, Crutches, etc.)? No PATIENT GENDER DATA: Female. status: : No status: NO. PATIENT RELEVANT IMPLANT DATA REVIEWED: Not Applicable PATIENT PRESENTS WITH AN IMPLANTABLE OR ATTACHED FOOD SAFETY OFFICER: No RADIOLOGY DEPARTMENT: Mammography PERIPHERAL IV DATA: Not applicable SIGNED BY: Carla Medrano December 15, 2023 10:49 AM documented in this encounterBlanchard Valley [facility] System05-07-2024 Telephone encounter Note * Telephone Encounter - Franklin Arias MD - 11/18/2023 12:02 PM EDT Noted. [facility]05-07-2024 Miscellaneous Notes* Telephone Encounter - Franklin Arias MD - 11/18/2023 12:02 PM EDT Noted. * Telephone Encounter - Patricia Rasheed LPN - 11/18/2023 11:37 AM EDT Pt states she gets her [address]22 international unit(s) of Vit D from her gastrologist. Pt states she has not found the B12 but she was taking 1000mcs daily. Pt states she has an appt with gastro today & will get all of her meds from them straightened out. Patricia Rasheed LPN * Telephone Encounter - Sophia Man MA - 11/12/2023 8:32 AM EDT Left message for patient to contact office. Sophia Man MA * Telephone Encounter - Franklin Arias MD - 11/11/2023 8:32 PM EDT Let patient know refill sent in. Let [...] taking the 1000 mcg once a day? * Telephone Encounter - Laila Blanco MA - 11/11/2023 1:27 PM EDT Call to pt and notified her of [...] #4 g w/4 refills. Laila Blanco MA * Telephone Encounter - Sophia Man MA - 11/10/2023 8:45 AM EDT Left message for patient to contact office. Sophia Man MA * Telephone Encounter - Franklin Arias MD - 11/07/2023 4:44 PM EDT Let patient know I want her to increase her B12 to two of the 1000 mcg tabs a day. I will send in a script to increase her atorvastatin to 80 mg a day. I still need to know what the strength of her Vit D is so I can give her instructions on it to improve her Vit D level. * Telephone Encounter - Yu Price RN - 11/06/2023 4:59 PM EDT Phoned patient and given provider's message below with verbalized understanding. Patient reports she is taking the vit D once daily- is not at home- so doesn't know the mg. Will call back to give that to nurse. Patient reports she is taking B12 1000 mcg once daily. Patient reports she is taking lipitor daily with no missed doses. * Telephone Encounter - Franklin Arias MD - 11/06/2023 2:32 PM EDT Let patient know her Vit D is slightly low. She is she still takes Vit D and if so how much and howoften? Her B12 is low again. Is she [...] UA were all ok. documented in this encounterBlanchard [facility] System05-07-2024 Telephone encounter Note * Telephone Encounter - Patricia Rasheed LPN - 11/18/2023 11:37 AM EDT Pt states she gets her 70449 international unit(s) of Vit D from her gastrologist. Pt states she has not found the B12 but she was taking 1000mcs daily. Pt states she has an appt with gastro today & will get all of her meds from them straightened out. Patricia Rasheed LPN [facility]05-01-2024 Telephone encounter Note* Telephone Encounter - Sophia Man MA - 11/12/2023 8:32 AM EDT Left message for patient to contact office. Sophia Man MA [facility]04-30-2024 Telephone encounter Note* Telephone Encounter - Franklin Arias MD - 11/11/2023 8:32 PM EDT Let patient know refill sent in. Let [...] taking the 1000 mcg once a day? [facility]04-30-2024 Telephone encounter Note* Telephone Encounter - Laila Blanco MA - 11/11/2023 1:27 PM EDT Call to pt and notified her of [...] #4 g w/4 refills. Laila Blanco MA [facility]04-29-2024 Telephone encounter Note* Telephone Encounter - Di Ireland RN - 11/10/2023 2:07 PM EDT Patient notified and voiced understanding. Transferred to PSS in uro/respite coordinator to schedule appointment. Di Ireland RN [facility]04-29-2024 Miscellaneous Notes* Telephone Encounter - Di Ireland RN - 11/10/2023 2:07 PM EDT Patient notified and voiced understanding. Transferred to PSS in uro/respite coordinator to schedule appointment. Di Ireland RN * Telephone Encounter - Hollie Hoover APRN.CNP - 11/10/2023 1:27 PM EDT Please let patient know I reviewed case with RR who recommends referral to uro respite coordinator for evaluation and possible surgery. Please assist in scheduling. Hollie Hoover APRN.CNP documented in this encounterBlanchard Valley [facility] System04-29-2024 Telephone encounter Note * Telephone Encounter - Hollie Hoover APRN.CNP - 11/10/2023 1:27 PM EDT Please let patient know I reviewed case with RR who recommends referral to uro respite coordinator for evaluation and possible surgery. Please assist in scheduling. Hollie Hoover APRN.LAZARO [facility]04-29-2024 History of Present illness Narrative* Hollie Hoover APRN.CNP - 11/10/2023 10:21 AM EDT Isabel Sahni is a 68 year old female who presents for problem visit of prolapse. HPI: Isabel noticed something hanging out of her vagina 2-4 months. She denies any bladder concerns. She denies bleeding. Her noticed it right before intercourse. 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 OB History T2 L1 SAB0 IAB0 Ectopic0 Multiple0 Live Births0 Comment: One child is . Assistance Representative History LMP: 03/12/2010, Postmenopausal Age at Menarche: Age at First : Age at Menopause: Assistance Representative History Comments: Sexual Activity: Yes; Male Contraception: [...] Tubular adenoma polyp of rectum 07/17/2020 Seeing Friend Vitamin D deficiency 10/01/2021 Well adult exam [...] external genitalia normal, normal Bartholin's glands, urethra, [place]'s glands, no vulvar lesions, no cervical lesions, [...] Cystocele, midline - ICD9: 618.01, ICD10: N81.11 Hollie Hoover APRN.CNP Medical Decision Making: Problems: Moderate: New problem with uncertain prognosis Data: Unique test result(s) reviewed: 3+ Medical Decision Making Level: 4 - Moderate documented in this encounterBlanchard Valley [facility] System04-29-2024 Telephone encounter Note * Telephone Encounter - Sophia Man MA - 11/10/2023 8:45 AM EDT Left message for patient to contact office. Sophia Man MA [facility]04-26-2024 Telephone encounter Note* Telephone Encounter - Franklin Arias MD - 11/07/2023 4:44 PM EDT Let patient know I want her to increase her B12 to two of the 1000 mcg tabs a day. I will send in a script to increase her atorvastatin to 80 mg a day. I still need to know what the strength of her Vit D is so I can give her instructions on it to improve her Vit D level. [facility]04-25-2024 Telephone encounter Note* Telephone Encounter - Yu Price RN - 11/06/2023 4:59 PM EDT Phoned patient and given provider's message below with verbalized understanding. Patient reports she is taking the vit D once daily- is not at home- so doesn't know the mg. Will call back to give that to nurse. Patient reports she is taking B12 1000 mcg once daily. Patient reports she is taking lipitor daily with no missed doses. [facility]04-25-2024 Telephone encounter Note* Telephone Encounter - Franklin Arias MD - 11/06/2023 2:32 PM EDT Let patient know her Vit D is slightly low. She is she still takes Vit D and if so how much and howoften? Her B12 is low again. Is she [...] her labs and UA were all ok. [facility]04-23-2024 Instructions* Patient Instructions* Franklin Arias MD - 11/04/2023 10:26 AM [...] review all the medicines you take, even [id number]-xzl-ktkwcqc medicines. As you get older, the way medicines work in your body can change. Some medicines, or combinations of medicines, can make you sleepy or dizzy andcan cause you to fall. 3. Have your [...] have certain medical conditions. documented in this encounterBlanchard Valley Health System04-23-2024 History of Present illness Narrative* Franklin Arias MD - 11/04/2023 10:20 AM EDT Images from the original note [...] with patient, and I recommended no further interventionat this time. Cognitive screening Score: 4 Cognitive [...] Wt 210 lb (95.3kg) LMP 03/12/2010 BMI 31.94kg/(m^2). Vision Screening: Follows with optometry/ophthalmology Assessment/Plan Welcome to Medicare preventive visit (Z00.00) - Counseled on healthy diet and regular exercise - Fall avoidance information provided - Personalized prevention plan provided See below Chief Complaint Patient presents with: Medicare Wellness Exam HPI Isabel Sahni is a 68 year old female who presents here today for Chronic Medical Conditions. andMedicare Annual Visit. Patient with hx of HTN, [...] 76 Resp 16 Ht 172.7 cm (5' 8) Wt 95.3 kg (210 lb) LMP 03/12/2010 [...] symmetric. Sensation to light touch and crainal nerves2- 12 intact.. Health Maintenance List RSV Vaccine(1 [...] ICD9: 752.40, ICD10: Q52.4 - CONSULT TO CONTRACT ASSOCIATE 10. Obesity, Class I, BMI 30-34.9 - [...] which included preparing to see the patient, apqm-ow-rway patient care, completing clinical documentation, performing a medically appropriate examination, counseling and educating the patient/family/caregiver and ordering medications, tests, or procedures. Franklin Arias MD documented in this encounterBlanchard Valley Health System04-15-2024 History of Present illness Narrative* Shantal Galan PA-C - 10/27/2023 2:00 PM EDT Shantal Galan PA-C Department of Orthopaedics Orthopa[facility] [address] [place] [address] Dept: [phone] Dept October 27, 2023 CHIEF COMPLAINT: Established [...] to be very helpful, no longer having painwhen she raises her arm overhead, she is still getting some nighttime pain along the lateral aspectof the shoulder. Unable to tolerate NSAIDs. Her [...] is nontender to palpation over the SC joint,clavicle and AC joint. No tenderness to palpation [...] posterior stress. Negative Neer and positive Bernardo impingementsigns. 4+ /5 strength with supraspinatus, 5/5 strength [...] Oxycodone This note was partially generated using TASS voice recognition system, and there may be some incorrect words, spellings, and punctuation that were not noted in checking the note before saving. Shantal Galan PA-C * Florencia Foster RN - 10/27/2023 1:39 PM EDT AMB ROOMING INTAKE FLOWSHEET DATA Patient presents with: Right Shoulder - Established Patient, Follow Up Patient presents for 9 week follow up of right shoulder pain and cervicalgia. Xray was done 08/25/23of cervical and 06/19/23. Received steroid injection at [facility] on 08/25/23. Patient states that the injection helped initially. Some soreness still, but better than before. documented in this encounterBlanchard Valley Health System02-13-2024 Miscellaneous Notes* Telephone Encounter - Ludivina Hanna RN - 08/26/2023 10:42 AM EST Spoke with patient and relayed message. Patient verbalized understanding. * Telephone Encounter - Shantal Galan PA-C - 08/26/2023 10:07 AM EST Can we let the patient know that I got the x-ray results of her neck, she does have disc disease atmultiple levels in her cervical spine. If she does not get any improvement with the shoulder corticosteroid injection then I would suggest getting her into physical therapy to work on her neck. If she continues to have issues then we should get her into see one of our spine or pain management providers. [facility]. documented in this encounterBlanchard Valley Health System02-12-2024 History of Present illness Narrative* Shantal Galan PA-C - 08/25/2023 2:31 PM ESTAssociated Order(s): Large Joint Arthro/Inj: R subacromial bursa Post-Procedure Diagnose(s): Bursitis of right shoulder; Acute pain of right shoulder Shantal Galan PA-C Department of Orthopaedics Orthopaedics [address] [facility] [address] Dept: [phone] Dept August 25, [address] Sudha Parsons for an opinion regarding right shoulder pain. 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 ASSESSMENT: M75.51 Bursitis of right shoulder (primary encounter diagnosis) M25.511 Acute pain of right shoulder M54.2 Cervicalgia PLAN: She is so acutely tender in her shoulder that she is hard to examine. Certainly seams to havesome shoulder impingement but some of her history [...] subacromial bursa Informed Consent Consent Obtained: Verbal [place] Protocol A moment to CARE was completed. [...] accounted for. Imaging: IMPRESSION: NO ACUTE FINDINGS. Hair Boiler Operator: MARIA DOLORES Transcribe Date/Time: Jun 23 2023 [...] anxiety) This note was partially generated using TASS voice recognition system, and there may be some incorrect words, spellings, and punctuation that were not noted in checking the note before saving. 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 documented in this encounterBlanchard Valley Health System02-12-2024 History of Present illness Narrative* Kat Andrews RT(R) - 08/25/2023 1:30 PM EST Radiology Service Progress Note PATIENT NAME: Isabel Sahni DATE OF SERVICE: August 25, 2023 TIME: 3:25 PM PATIENT IDENTITY VERIFICATION COMPLETED USING TWO (2) IDENTIFIERS: Name and Date of confirmedby patient verbally. FALL SCREENING: Has the patient had 2 falls in the last year or 1 fall with injury or currently using an Ambulatory Assistive Device (Walker, Cane, Wheelchair, Crutches, etc.)? No PATIENT GENDER DATA: Female. status: : No status: NO. PATIENT RELEVANT IMPLANT DATA REVIEWED: Not Applicable PATIENT PRESENTS WITH AN IMPLANTABLE OR ATTACHED FOOD SAFETY OFFICER: No RADIOLOGY DEPARTMENT: General X-ray: Exam(s) Completed: Spine X-Ray(s): Cervical AP / LAT / OBL PERIPHERAL IV DATA: Not applicable SIGNED BY: RT Kylah(R) August 25, 2023 3:25 PM documented in this encounterBlanchard Valley Health System02-06-2024 Miscellaneous Notes* Telephone Encounter - eHena Goss LPN - 08/19/2023 8:09 AM EST Detailed VM left on pt's identified voicemail of information below. Heena Goss LPN * Telephone Encounter - Franklin Arias MD - 08/18/2023 3:53 PM EST Patient do for complete PE in October [...] mouth once daily. Authorizing Provider: FRANKLIN ARIAS MD * Telephone Encounter - Johanne Sanders - 08/18/2023 3:43 PM EST Patient has been identified by name and [...] Thank you. Johanne Sanders. documented in this encounterBlanchard Valley Health System12-07-2023 History of Present illness Narrative* Giselle Robles RT(R) - 06/19/2023 2:50 PM EST Radiology Service Progress Note PATIENT NAME: Isabel Sahni DATE OF SERVICE: June 19, 2023 TIME: 2:52 PM PATIENT IDENTITY VERIFICATION COMPLETED USING TWO (2) IDENTIFIERS: Name and Date of confirmedby patient verbally. FALL SCREENING: Has the patient had 2 falls in the last year or 1 fall with injury or currently using an Ambulatory Assistive Device (Walker, Cane, Wheelchair, Crutches, etc.)? No PATIENT GENDER DATA: Female. status: : No status: NO. PATIENT RELEVANT IMPLANT DATA REVIEWED: Yes RADIOLOGY DEPARTMENT: General X-ray: Exam(s) Completed: Upper Extremity X- Ray(s): Shoulder, AP / TRUE AP right PERIPHERAL IV DATA: Not applicable SIGNED BY: RT Lanny(R) June 19, 2023 2:52 PM documented in this encounterBlanchard Valley Health System10-03-2023 Miscellaneous Notes* Telephone Encounter - Cielo Romero Cma - 04/15/2023 10:38 AM EDT Patient notified and verbalized understanding Cielo Romero Cma * Telephone Encounter - Sudha Parsons APRN.CNP - 04/15/2023 10:18 AM EDT Please let patient know her potassium is low and likely contributing to her leg cramps. I have ordered potassium supplementation and want her to repeat her labs in 1 week. documented in this encounterBlanchard Valley Health System09-08-2023 History of Present illness Narrative* Oly Man APRN.LAZARO - 03/21/2023 2:40 PM EDT CC: Patient presents with: Cough: Congestion, body [...] Asa [Salicylates], Phenergan [Promethazine], Codeine, Hydrocodone, Ibuprofen, Lisinopril,and Oxycodone MEDICATIONS atorvastatin (LIPITOR) 40 mg tablet [...] note. Patient will follow-up if signs and symptomsseem to be getting worse not better. Oly Man APRN.DRILL PRESS SET UP OPERATOR Prescription instructions reviewed with patient as applicable. Potential red flag symptoms discussed with the patient. Reviewed appropriate action plan to take if red flag symptoms occur. Patient agreeable to treatment plan. Oly Man APRN.LAZARO documented in this encounterBlanchard Valley Health System05-31-2023 Miscellaneous Notes* Telephone Encounter - Altaf Bean LPN - 12/11/2022 8:29 AM EDT Lft message of same on pt's identified vm. Altaf Bean LPN * Telephone Encounter - Altaf Bean LPN - 12/11/2022 8:28 AM EDT ----- Message from Cecily Coelho PA-C sent at 12/11/2022 8:10 AM EDT ----- Normal mammogram. Repeat in 1 year. documented in this encounterBlanchard Valley Health System05-30-2023 Miscellaneous Notes* Letter - Mammography Coordinator - 12/10/2022 4:43 PM EDT December 11, 2022 PID: [id number] Isabel Sahni [address] [place] [address] Dear Ms. Sahni, We are pleased to [...] report will be [facility] as part of your permanent medical record and are available for your continuing care. Thank you for allowing us to help in meeting your health care needs. Sincerely, Dr. Goldstein Interpreting Radiologist [facility] (Normal over 40) documented in this encounterBlanchard Valley Health System05-30-2023 History of Present illness Narrative* Purvi Barnes RT(R) - 12/10/2022 1:10 PM EDT Radiology Service Progress Note PATIENT NAME: Isabel Sahni DATE OF SERVICE: December 10, 2022 TIME: 12:54 PM PATIENT IDENTITY VERIFICATION COMPLETED USING TWO (2) IDENTIFIERS: Name and Date of confirmedby patient verbally. FALL SCREENING: Has the patient [...] 10, 2022 12:54 PM documented in this encounterBlanchard Valley Health System04-25-2023 History of Present illness Narrative* DEVAUGHN Mcgowan - 11/05/2022 1:50 PM EDT This note was created using Flickmeriter. Subjective Isabel Sahni is a 67 year old female. HPI 67-year-old female presents for sinus congestion, sinus pressure, cough x3 weeks. Patient states she has had nasal congestion for the past 2 to 3 weeks. She has had a cough as well. She states she has a lot of headaches and sinus pressure. She has been taking [id number] medications without much improvement. No fevers recently, [...] Asa [Salicylates], Phenergan [Promethazine], Codeine, Hydrocodone, Ibuprofen, Lisinopril,and Oxycodone MEDICATIONS atorvastatin (LIPITOR) 40 mg tablet [...] ER evaluation. DEVAUGHN Mcgowan documented in this encounterBlanchard Valley Health System04-03-2023 Miscellaneous Notes* Telephone Encounter - Cecily Coelho PA-C - 10/14/2022 10:35 AM EDT The following approved medication requests have been transmitted electronically. Requested Prescriptions Signed Prescriptions Disp Refills atorvastatin (LIPITOR) 40 mg tablet 90 tablet 1 Sig: Take 1 tablet by mouth daily at bedtime. For cholesterol. Authorizing Provider: CECILY COELHO PA-C * Telephone Encounter - Altaf Bean LPN - 10/14/2022 10:30 AM EDT Reviewed results and instructions with pt. She would like to increase the lipitor to 40 mg. Please send to [facility] [place]. Altaf Bean LPN * Telephone Encounter - Florencia Johnston RN - 10/09/2022 12:24 PM EDT Called and left a detailed voicemail notifying patient of providers message. Hospital phone number was left for the Pt to call back. Florencia Johnston RN * Telephone Encounter - Cecily Coelho PA-C - 10/09/2022 12:01 PM EDT Let patient know that overall labs are okay. Her cholesterol has increased some however. We could increase lipitor to 40mg or she can work on her diet and in 6 months we can recheck and decide from there. Which does she prefer? Everything else looks good. Thanks. Cecily Coelho PA-C documented in this encounterBlanchard Valley Health System03-28-2023 History of Present illness Narrative* Cecily Coelho PA-C - 10/08/2022 10:24 AM EDT Chief Complaint Patient presents with: Yearly Exam [...] F) Resp 18 Ht 165 cm (5' 4.96) Wt 97.5 kg (215 lb) LMP 03/12/2010 [...] diet of 1000 mg/day for under 50, 1200- 1500 mg/day for 50+ - Patient was counseled [id number] by myself (the billing provider) for the [...] Follow up 6 months. documented in this encounterBlanchard Valley Health System01-24-2023 Miscellaneous Notes* Telephone Encounter - Mariya Meza [facility] - 08/06/2022 9:30 AM EST Pharmacy verified in [facility] Patient has been identified by name and [...] advise. Mariya Meza Pss documented in this encounterBlanchard Valley Health System11-07-2022 History of Present illness Narrative* Hal Desai MD - 05/20/2022 11:37 AM EST Patient presents with: Knee Pain: bilateral knee [...] b/l Elevated alkaline phosphatase level 12/05/2021 Seeing Friend Elevated fasting glucose 10/02/2021 Elevated vitamin B12 [...] tenderness. Stable to varus and valgus strain. Negativeanterior drawer test. Negative posterior drawer test. Component [...] care. Hal Desai MD documented in this encounterBlanchard Valley Health System11-01-2022 Instructions* Patient Instructions* Florencia Lew PA-C - 05/14/2022 9:51 AM EDT The following instructions are important for you related to your office visit today with the [facility] General Surgeons. INSTRUCTIONS FOLLOWING A POLYP [...] you should contact our office immediately @ [phone] and ask to be transferred to the General Surgery department. documented in this encounterBlanchard Valley Health System11-01-2022 History of Present illness Narrative* Florencia Lew PA-C - 05/14/2022 9:34 AM EDT FOLLOW UP VISIT - ENDOSCOPY NAME: Isabel Sahni [facility] NO.: [id number] DATE OF SERVICE: 05/14/2022 : 1955 REFERRING [...] C (97.1 F), height 160 cm (5' 3), uvppyx59.3 kg (219 lb), last menstrual period 03/30/2010, SpO2 96 %. General: patient is alert, cooperative, pleasant and in no acute distress On examination, the abdomen is benign. Assessment IMPRESSION: s/p colonoscopy with polypectomy x 2-tubular adenomas, removed piecemeal PLAN: The operative findings and pathology report were reviewed with the patient, and the patient has hadthe opportunity to ask questions and have questions [...] which included preparing to see the patient, [id number] patient care, completing clinical documentation, obtaining and/or reviewing separately obtained history, communicating with other HCPs (not separately reported), independently interpret ing results (not separately reported), and communicating results to the patient/family/caregiver. Florencia Lew PA-C documented in this encounterBlanchard Valley Health System10-26-2022 Miscellaneous Notes* Telephone Encounter - Joy Mcfarlane RN - 05/08/2022 1:50 PM EDT Patient notified of results and provider's instructions. Patient verbalizes understanding. Joy Mcfarlane RN * Telephone Encounter - Altaf Bean LPN - 05/08/2022 10:19 AM EDT Left message for pt to contact office. Altaf Bean LPN * Telephone Encounter - Franklin Arias MD - 05/07/2022 9:32 PM EDT Let patient know the narrowing in her neck arteries is stable compared to last US done 02/2021. No changes in Tx needed. documented in this encounterBlanchard Valley Health System10-25-2022 Miscellaneous Notes* Telephone Encounter - Altaf Bean LPN - 05/07/2022 2:12 PM EDT Pt notified of same with verbalized understanding. Altaf Bean LPN * Telephone Encounter - Cecily Coelho PA-C - 05/07/2022 1:59 PM EDT Xray does show moderate arthritic changes. documented in this encounterBlanchard Valley Health System10-25-2022 History of Present illness Narrative* Giselle Robles RT(R) - 05/07/2022 11:00 AM EDT Radiology Service Progress Note PATIENT NAME: Isabel Sahni DATE OF SERVICE: May 07, 2022 TIME: 11:08 AM PATIENT IDENTITY VERIFICATION COMPLETED USING TWO (2) IDENTIFIERS: Name and Date of confirmedby patient verbally. FALL SCREENING: Has the patient [...] 07, 2022 11:08 AM documented in this encounterBlanchard Valley Health System10-25-2022 Instructions* Patient Instructions* Cecily Coelho PA-C - 05/07/2022 10:[address] Corona's office for refills on documented in this encounterBlanchard Valley Health System10-25-2022 History of Present illness Narrative* Cecily Coelho PA-C - 05/07/2022 10:37 AM EDT Chief Complaint Patient presents with: Recheck: Medication [...] AP/LAT/L5-S1 Cecily Coelho PA-C documented in this encounterBlanchard Valley Health System10-17-2022 History of Present illness Narrative* Rosie Trejo LPN - 04/29/2022 10:13 AM EDT Patient presents for flu and COVID vaccines. Denies any problems at this time. Tolerated injectionswell. Rosie Trejo LPN documented in this encounterBlanchard Valley Health System10-04-2022 Miscellaneous Notes* Telephone Encounter - Cielo Hudson MA - 04/16/2022 8:56 AM EDT Unable to reach. Left detailed message on identified VM with provider's result. Cielo Hudson MA * Telephone Encounter - Cecily Coelho PA-C - 04/11/2022 11:27 AM EDT Yes. Recent labs are all okay * Telephone Encounter - Sophia Man MA - 04/11/2022 9:21 AM EDT Left message for patient. ANASTASIYA Mims Dr. Labs?? * Telephone Encounter - Franklin Arias MD - 04/10/2022 9:21 PM EDT Let patient know recent were all ok. documented in this encounterBlanchard Valley Health System09-27-2022 Instructions* Patient Instructions* Franklin Arias MD - 04/09/2022 9:06 AM EDT Wait to complete your blood work until on or after 04/26/2022 documented in this encounterBlanchard Valley Health System09-27-2022 History of Present illness Narrative* Franklin Arias MD - 04/09/2022 9:00 AM EDT Chief Complaint Patient presents with: F/U 6 [...] Hyperlipidemia Liver fibrosis 01/16/2022 Seeing Gastro- dr. friend Mixed hyperlipidemia 03/22/2013 Obesity Pancreatic cyst 11/09/2021 [...] in no acute distress, well-hydrated, well nourished. andObese. Neck: Supple, no adenopathy; thyroid symmetric, normal [...] Abs Lymph 1.00 - 4.00 k/uL 2.17 [place]% % 9.0 Abs [place] <0.87 k/uL 0.44 Eosin% % 0.0 Abs [...] Negative Negative Ketones, Urine Negative Negative Specific [place], Ur 1.005 - 1.030 1.012 Hemoglobin/Blood,Ur Negative [...] WAE Franklin Arias MD documented in this encounterBlanchard Valley Health System08-30-2022 Nurse Note* Luann Medina RN - 03/12/2022 11:48 AM EDT Arrived in phase II via cart, left [...] Farrell advised that he would like to repeatprocedure in 1 year and should be done in [place] so MAC can be offered. documented in this encounterBlanchard Valley Health System08-30-2022 History and physical note * Riley Farrell MD - 03/12/2022 10:00 AM EDT UPDATED PROCEDURAL SEDATION HISTORY AND PHYSICAL EXAMINATION SERVICE DATE: 03/12/2022 SERVICE TIME: 9:57 AM PHYSICAL EXAM MUST BE COMPLETED ON ADMISSION PROCEDURE: Procedure Indications: The History and Physical (completed in the past 30 days) has been reviewed and the patient has beenexamined. The contents accurately reflect the patient's condition [...] entered by the nurse and reviewed by ky Nursing Notes: Ana Mejía 11/05/2021 9:12 AM [...] back pain/injury, denies back problems, denies sciatica, deniesknee/foot trouble, NOTES arthritis, or denies gout. When was patient's last Mammogram screening? 10/30/2021 Last Colonoscopy: 01/27/2017 Ana Mejía I have confirmed and edited as necessary, the PFSH and ROS obtained by others. Florencia Lew PA-C PHYSICAL EXAMINATION: General: The patient is 66 year old female, well nourished, well hydrated in no acute distress. Thepatient is oriented to time, place, and person. VITALS: Blood pressure 178/80, pulse 80, temperature 36.6 C (97.8 F), height 162.6 cm (5' 4), weight 100.7 kg (222 lb), last menstrual period 03/30/2010, SpO2 96 %. Body mass index is 38.11 kg/m . HEENT: Normal cephalic, ataumatic, pupils are equally round, sclera are anicteric, mucous membranesare moist, oropharynx is clear. Neck has no [...] Will plan for lower endoscopy. We discussed therisks and benefits of the planned endoscopy. I have informed the patient that complications can occur including failure to complete the endoscopy and perforation. The patient had the opportunity to ask questions concerning the planned endoscopy. My staff has also explained the procedure to the patient in understandable terms and has given the patient printed material concerning the procedure. Thepatient freely consents to surgery. The patient was offered a [facility] I have counseled the patient regarding [...] physician via US mail. Florencia Lew PA-C * Riley Farrell MD - 03/12/2022 10:00 AM [...] entered by the nurse and reviewed by ky Nursing Notes: Ana Mejía 11/05/2021 9:12 AM [...] back pain/injury, denies back problems, denies sciatica, deniesknee/foot trouble, NOTES arthritis, or denies gout. When was patient's last Mammogram screening? 10/30/2021 Last Colonoscopy: 01/27/2017 Ana Mejía I have confirmed and edited as necessary, the PFSH and ROS obtained by others. Florencia Lew PA-C PHYSICAL EXAMINATION: General: The patient is 66 year old female, well nourished, well hydrated in no acute distress. Thepatient is oriented to time, place, and person. VITALS: Blood pressure 178/80, pulse 80, temperature 36.6 C (97.8 F), height 162.6 cm (5' 4), weight 100.7 kg (222 lb), last menstrual period 03/30/2010, SpO2 96 %. Body mass index is 38.11 kg/m . HEENT: Normal cephalic, ataumatic, pupils are equally round, sclera are anicteric, mucous membranesare moist, oropharynx is clear. Neck has no [...] Will plan for lower endoscopy. We discussed therisks and benefits of the planned endoscopy. I have informed the patient that complications can occur including failure to complete the endoscopy and perforation. The patient had the opportunity to ask questions concerning the planned endoscopy. My staff has also explained the procedure to the patient in understandable terms and has given the patient printed material concerning the procedure. Thepatient freely consents to surgery. The patient was offered a [facility]procedure [facility]. I have counseled the patient regarding [...] mail. Florencia Lew PA-C documented in this encounterBlanchard Valley Health System06-30-2022 Miscellaneous Notes* Telephone Encounter - Mehreen Veras RN - 01/10/2022 1:37 PM EDT Spoke with patient. Given message from provider's office. Patient verbalizes understanding. Mehreen Veras RN * Telephone Encounter - Ju Rodriguez Ma - 01/09/2022 2:01 PM EDT Left message for patient to call office back Ju Rodriguez Ma * Telephone Encounter - Cecily Coelho PA-C - 01/09/2022 1:41 PM EDT Let patient know that her labs show mildly low potassium and mildly low Vit d. Continue the vit d supplement once a week. i'd like to have her try to increase potassium in diet. Recheck 2 weeks. Cecily Coelho PA-C documented in this encounterBlanchard Valley Health System06-28-2022 History of Present illness Narrative* Cecily Coelho PA-C - 01/08/2022 1:20 PM EDT Chief Complaint Patient presents with: Recheck: blood [...] c-scope. Cecily Coelho PA-C documented in this encounterBlanchard Valley Health System06-22-2022 Miscellaneous Notes* Telephone Encounter - Jane Enciso RN - 01/02/2022 4:36 PM EDT Medications reviewed and patient is taking medications as ordered. Jane Enciso RN * Telephone Encounter - Heena Goss LPN - 01/01/2022 2:54 PM EDT Left a message for pt to call back and ask to speak to a nurse. Review the medications she has at home against her med list in Epic. Heena Goss LPN * Telephone Encounter - Korina Goss LPN - 12/28/2021 6:10 PM EDT Phone call placed x 2 brief message left on patients identified voicemail. Korina Goss LPN * Telephone Encounter - Altaf Bean LPN - 12/27/2021 11:34 AM EDT Spoke with pt's . He states pt has been trying to return call but can't get a hold of anyone. 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 Advised him to have pt ask to speak with a nurse. verbalizes understanding. Altaf Bean LPN * Telephone Encounter - Altaf Bean LPN - 12/26/2021 9:29 AM EDT Left additional message for pt to contact office. Altaf Bean LPN * Telephone Encounter - Altaf Bean LPN - 12/25/2021 11:54 AM EDT Left message for pt to contact office. Altaf Bean LPN * Telephone Encounter - Cecily Coelho PA-C - 12/25/2021 11:28 AM EDT Patient was seen today and theres a concern she may be missing a medication. Please Ask patient to read to you all the medications she has at home. documented in this encounterBlanchard Valley Health System06-14-2022 Miscellaneous Notes* Telephone Encounter - Altaf Bean LPN - 12/25/2021 11:45 AM EDT Pt was seen in office today. Altaf Bean LPN * Telephone Encounter - Florencia Johnston RN - 12/24/2021 4:05 PM EDT Called and left a detailed voicemail notifying patient of providers message. Hospital phone number was left so patient could call back and schedule an appointment. Florencia Johnston RN * Telephone Encounter - Cecily Coelho PA-C - 12/24/2021 11:44 AM EDT Needs an appointment. Her last BP check within [facility] was 124/81. Cecily Coelho PA-C * Telephone Encounter - Sophia Man MA - 12/24/2021 10:49 AM EDT Received a call from Dr. Palmer's office [...] after procedure. But Dr. Palmer wants the BPaddressed before rescheduling. Patient needs scheduled for follow up on BP. Sophia Man MA documented in this encounterBlanchard Valley Health System06-14-2022 Instructions* Patient Instructions* Cecily Coelho PA-C - 12/25/2021 10:49 AM [...] OTC. Cecily Coelho PA-C documented in this encounterBlanchard Valley Health System06-14-2022 History of Present illness Narrative* Cecily Coelho PA-C - 12/25/2021 10:40 AM EDT Chief Complaint Patient presents with: Hypertension HPI [...] gasto. Cecily Coelho PA-C documented in this encounterBlanchard Valley Health System06-14-2022 Nurse Note* Blanche Crawley Ma - 12/25/2021 10:32 AM EDT BP AVERAGE 1. 170/89 2. 156/82 69 3. 160/80 71 4. 174/121 72 5. 162.84 71 6. 154/78 69 Average 163/89 70 documented in this encounterBlanch[facility]06-13-2022 Nurse Note* Luann Medina RN - 12/24/2021 11:20 AM EDT Patient returned to restroom after dressing, able to pass more air, reports soreness in abdomen is down to a 3 on pain scale. * Luann Medina RN - 12/24/2021 11:14 AM EDT Patient returned from restroom, reports she passed some air, pain is a 4 on pain scale, pain is midlower abdomen, still decribes as sore. No nausea. Ambulates back to cot. Sitting on side of cot, given crackers and juice to drink. sitting with patient at bedside. * Luann Medina RN - 12/24/2021 11:06 AM EDT Patient reports her left lower abdomen has 'soreness' is a 6 on pain scale, will ambulate to restroom to try to release air. * Luann Medina RN - 12/24/2021 10:50 AM EDT Phone call to Dr Arias's office, spoke to Sophia and notified of pre procedure bp and bp's duringprocedure, Dr MesaSpencer unable to complete colonoscopy today. Dr Arias is out the of office today, he returns to office tomorrow, she will give him the message, and call patient today to schedule an appointment to review bp and that colonscopy can not be rescheduled until bp is addressed. * Luann Medina RN - 12/24/2021 10:30 AM EDT Patient received in PACU on left side, eyes closed, arouses to verbal stimuli, abdomen is soft, denies pain or nausea at this time. The procedure was unable to be completed due to high bp in procedure room. Dr Palmer requested PCP be notified of high bp and will not be able to reschedule procedureuntil bp issue is addressed. Dr Palmer spoke to in consult room after patient in PACU. documented in this encounterBlanchard [facility]06-13-2022 History and physical note * David Palmer MD - 12/24/2021 10:00 AM EDT Images from the original [...] entered by the nurse and reviewed by ky Nursing Notes: Ana Mejía 11/05/2021 9:12 AM [...] back pain/injury, denies back problems, denies sciatica, deniesknee/foot trouble, NOTES arthritis, or denies gout. When was patient's last Mammogram screening? 10/30/2021 Last Colonoscopy: 01/27/2017 Ana Mejía I have confirmed and edited as necessary, the PFSH and ROS obtained by others. Florencia Lew PA-C PHYSICAL EXAMINATION: General: The patient is 66 year old female, well nourished, well hydrated in no acute distress. Thepatient is oriented to time, place, and person. VITALS: Blood pressure 178/80, pulse 80, temperature 36.6 C (97.8 F), height 162.6 cm (5' 4), weight 100.7 kg (222 lb), last menstrual period 03/30/2010, SpO2 96 %. Body mass index is 38.11 kg/m . HEENT: Normal cephalic, ataumatic, pupils are equally round, sclera are anicteric, mucous membranesare moist, oropharynx is clear. Neck has no [...] Will plan for lower endoscopy. We discussed therisks and benefits of the planned endoscopy. I have informed the patient that complications can occur including failure to complete the endoscopy and perforation. The patient had the opportunity to ask questions concerning the planned endoscopy. My staff has also explained the procedure to the patient in understandable terms and has given the patient printed material concerning the procedure. Thepatient freely consents to surgery. The patient was offered a [facility]/procedure at a [facility]. I have counseled the patient regarding [...] to requesting physician via US mail. Florencia eLw PA-C UPDATED HISTORY AND PHYSICAL EXAMINATION SERVICE DATE: 12/24/2021 SERVICE TIME: 9:22 AM PHYSICAL EXAM MUST BE COMPLETED ON ADMISSION The History and Physical (completed in the past 30 days) has been reviewed and the patient has beenexamined. The contents accurately reflect the patient's condition with the following additions or revisions since the H&P was completed. Examination indicates no changes. This H&P can be found in the attached. SIGNATURE: David Palmer III, MD PATIENT NAME: Isabel Sahni DATE: December 24, 2021 TIME: 9:22 AM documented in this encounterBlanchard Valley [facility] System05-27-2022 Miscellaneous Notes* Telephone Encounter - Korina Goss LPN - 12/07/2021 3:15 PM EDT Phone call placed brief message to contact a nurse. Korina Goss LPN * Telephone Encounter - Korina Goss LPN - 12/07/2021 3:13 PM EDT ----- Message from Crys Leary APRN.DRILL PRESS SET UP OPERATOR sent at 12/07/2021 7:14 AM EDT ----- Please notify patient of negative COVID test. documented in this encounterBlanchard Valley [facility] System05-27-2022 Miscellaneous Notes* Telephone Encounter - Mireya Baltazar MA - 12/07/2021 11:56 AM EDT VM left with results, phone number left to call back with any questions. Mireya Baltazar MA * Telephone Encounter - Oly Man APRN.CNP - 12/07/2021 7:14 AM EDT Negative for covid please notify thank you documented in this encounterBlanchard Valley Health System05-26-2022 History of Present illness Narrative* Hal Desai MD - 12/06/2021 8:23 AM EDT Patient presents with: Cough: Pt denied chest pain, SOB reported Manley, sore throat pain rated 7, x1 week HPI: Feeling sick for 5 days. Positive symptoms: Cough, Sore throat, Headache, Nasal Congestion, Rhinorrhea, Body Aches, Negative symptoms: Shortness of breath, Chest pain, Nausea, Vomiting, Diarrhea, OTC: Nyquil Completed fourth dose of [employer] COVID-19 vaccine in October. PAST MEDICAL HISTORY [...] pain, shortness of breath, and lethargy; in theER if severe. - 2019 CORONAVIRUS Requests Rx for cough- BENZONATATE 100 MG CAPSULE Hal Desai MD documented in this encounterBlanchard Valley Health System04-29-2022 Miscellaneous Notes* Telephone Encounter - Jane Enciso RN - 11/09/2021 1:49 PM EDT Patient returned call and given provider's message below and patient verbalized understanding. Sivakumar Enciso RN * Telephone Encounter - Altaf Bean LPN - 11/09/2021 11:04 AM EDT Left additional message for pt to contact office. Altaf eBan LPN * Telephone Encounter - Ju Rodriguez Ma - 11/08/2021 9:01 AM EDT Left message for patient to call office back Ju Rodriguez Ma * Telephone Encounter - Cecily Coelho PA-C - 11/08/2021 8:55 AM EDT Let patient know that MRI shows a cystic mass on the Pancrease. This is likely benign and they recommend just a repeat in 1 year. However I prefer patient's to see gastro for this to monitor. I will put in consult. documented in this encounterBlanchard Valley Health System04-27-2022 History of Present illness Narrative* Blanche Gooden, RT(R) - 11/07/2021 2:20 PM EDT Radiology Service Progress Note DATE OF SERVICE: [...] the Left wrist with a Angio cath: 22gauge. RADIOLOGY DEPARTMENT: MR; Exam(s) Completed: Body: Pancreas/Biliary SIGNATURE: RT Iqra(R) PATIENT NAME: Isabel Sahni DATE: November 07, 2021 TIME: 2:39 PM documented in this encounterBlanchard Valley Health System04-25-2022 Miscellaneous Notes* Telephone Encounter - Nataly Alexander - 11/05/2021 9:50 AM EDT COLON ASC documented in this encounterBlanchard Valley Health System04-19-2022 Miscellaneous Notes* Telephone Encounter - Altaf Bean LPN - 10/30/2021 9:56 AM EDT Left message of same on pt's identified vm. Altaf Bean LPN * Telephone Encounter - Altaf Bean LPN - 10/30/2021 9:54 AM EDT ----- Message from Cecily Coelho PA-C sent at 10/30/2021 8:55 AM EDT ----- Normal mammogram. Repeat in 1 year. documented in this encounterBlanchard Valley Health System04-19-2022 Miscellaneous Notes* Letter - Mammography Coordinator - 10/30/2021 7:56 AM EDT October 30, 2021 PID: [id number] Isabel NicholasClayton Sahni [address] [place] [address] Dear Ms. Sahni, We are pleased to [...] report will be [facility] as part of [facility] permanent medical record and are available for your continuing care. Thank you for allowing us to help in meeting your health care needs. Sincerely, Dr. Baptiste Interpreting Radiologist [facility] (Normal over 40) documented in this encounterBlanchard Valley Health System04-18-2022 History of Present illness Narrative* Feli Ac GogoCoino Tech - 10/29/2021 1:30 PM EDT Radiology Service Progress Note PATIENT NAME: Isabel Sahni DATE OF SERVICE: October 29, 2021 TIME: 1:46 PM PATIENT IDENTITY VERIFICATION COMPLETED USING TWO (2) IDENTIFIERS: Name and Date of confirmedby patient verbally. FALL SCREENING: Has the patient had 2 falls in the last year or 1 fall with injury or currently using an Ambulatory Assistive Device (Walker, Cane, Wheelchair, Crutches, etc.)? No PATIENT GENDER DATA: Female. status: : No status: NO. PATIENT RELEVANT IMPLANT DATA REVIEWED: Not Applicable RADIOLOGY DEPARTMENT: Mammography PERIPHERAL IV DATA: Not applicable SIGNED BY: Feli Ac GogoCoino [employer] October 29, 2021 1:46 PM documented in this encounterBlanchard Valley Health System04-12-2022 Miscellaneous Notes* Telephone Encounter - Cecily Coelho PA-C - 10/23/2021 7:17 AM EDT I am cancelling MRI of Liver. Only MRI Panc/Christos wo/w contrast is needed. Cecily Coelho PA-C documented in this encounterBlanchard Valley Health System04-11-2022 Miscellaneous Notes* Telephone Encounter - Franklin Arias MD - 10/22/2021 2:47 PM EDT BP good. No changes needed. * Telephone Encounter - Rosie Trejo LPN - 10/22/2021 2:15 PM EDT Manual Readin/86 Pulse: 74 BP Elizabeth average: [...] PCP. Rosie Trejo LPN documented in this encounterBlanchard Valley Health System04-11-2022 History of Present illness Narrative* Rosie Trejo LPN - 10/22/2021 2:13 PM EDT Manual Readin/86 Pulse: 74 BP Elizabeth average: [...] PCP. Rosie Trejo LPN documented in this encounterBlanchard Valley Health System04-05-2022 NoteHNO ID: [id number] Author: Geraldine Okeefe MD Service: ? Author [...] of further assistance to you Sincerely Geraldine Stearns, [facility] [phone] Miscellaneous Notes* Telephone Encounter - Patricia Rasheed LPN - 10/16/2021 12:34 PM EDT Pt returned call & was notified of results & providers message. Pt was transferred to casing wringer operator to schedule MRI & lab test. Patricia Rasheed LPN * Telephone Encounter - Cecily Coelho PA-C - 10/16/2021 11:43 AM EDT Let patient know of below results. Then let her know that I received recommendations from gastro and I am going to put in a MRI order and an additional lab for her to do. Thanks. Cecily Coelho PA-C * Telephone Encounter - Altaf Bean LPN - 10/16/2021 8:46 AM EDT Left message for pt to contact office. Altaf Bean LPN * Telephone Encounter - Cecily Coelho PA-C - 10/16/2021 8:10 AM EDT Let patient know that her US shows fatty liver. i'm going to put in a e-consult to gastro to see if they have further recommendations. If she hasn't heard from us in 1 week, please ask her to contact me. Cecily Coelho PA-C documented in this encounterBlanchard Valley Health System04-05-2022 History of Present illness Narrative* Geraldine Okeefe MD - 10/16/2021 10:34 AM EDT Dear Cecily I suggest obtaining the following tests: AMA panel with titer and MRI liver and pancreas with contrast You may share results with me if abnormal Thank you for your referral. Please feel free to contact me if I can be of further assistance to you Sincerely Geraldine Stearns MD documented in this encounterBlanchard Valley Health System03-31-2022 Miscellaneous Notes* Telephone Encounter - Yu Price RN - 10/11/2021 2:52 PM EDT Patient returned call and given provider's message below with verbalized understanding. Transferredto pss. Patient agreeable to call Dr. Corona office to schedule appt. * Telephone Encounter - Altaf Bean LPN - 10/11/2021 12:28 PM EDT Left message for pt to contact office. See Cecily's message below. Referral and info has been faxed to Dr Corona's office. Altaf Bean LPN * Telephone Encounter - Ju Rodriguez Ma - 10/10/2021 1:32 PM EDT Left vm for patient to call office back Ju Rodriguez Ma * Telephone Encounter - Cecily Coelho PA-C - 10/10/2021 1:27 PM EDT Liver fraction of alk phos is elevated as is GGT. Will put in consult to gastro (dr. Corona) and set up for US of liver. Cecily Coelho PA-C documented in this encounterBlanchard Valley Health System03-23-2022 Miscellaneous Notes* Telephone Encounter - Mehreen Veras RN - 10/03/2021 2:28 PM EDT Spoke with patient. Given message from provider's office. Patient verbalizes understanding. Mehreen Veras RN * Telephone Encounter - Altaf Bean LPN - 10/02/2021 11:28 AM EDT Left message for pt to contact office. Altaf Bean LPN * Telephone Encounter - Cecily Coelho PA-C - 10/02/2021 10:59 AM EDT Let patient know that her alk phos [...] sent Cecily Coelho PA-C documented in this encounterBlanchard Valley Health System03-21-2022 History of Present illness Narrative* Cecily Coelho PA-C - 10/01/2021 12:46 PM EDT Chief Complaint Patient presents with: Physical HPI [...] F) Resp 18 Ht 164.5 cm (5' 4.76) Wt 99.8 kg (220 lb) LMP 03/30/2010 BMI 36.88 kg/m BP 174/89 Pulse 72 Temp 36.7 C (98 F) Resp 18 Ht 164.5 cm (5' 4.76) Wt 99.8 kg (220 lb) LMP 03/30/2010 BMI 36.88 kg/m General Appearance: Well appearing, alert, in no acute distress, well-hydrated, well nourished. andOverweight. Skin: Skin color, texture, turgor normal, no [...] diet of 1000 mg/day for under 50, 1200- 1500 mg/day for 50+ - Discussed need and benefit for weight loss. BMI 36.88 kg/(m^2) - Mammogram ordered - exam recommended once yearly - Patient was counseled [id number] by myself (the billing provider) for the [...] IM Cecily Coelho PA-C documented in this encounterBlanchard Valley Health System09-19-2014 History of Past illness Narrative* Problem Noted Date Resolved Date Bile leak 04/01/2014 12/30/2016 Right upper quadrant pain 02/14/20142016 documented as of this encounter (statuses as of 10/01/2021) [facility] Narrative* Problem Noted Date Resolved Date Bile leak 04/01/2014 12/30/2016 Right upper quadrant pain 02/14/20142016 documented as of this encounter (statuses as of 10/03/2021) [facility] Narrative* Problem Noted Date Resolved Date Bile leak 04/01/2014 12/30/2016 Right upper quadrant pain 02/14/20142016 documented as of this encounter (statuses as of 10/11/2021) [facility] Narrative* Problem Noted Date Resolved Date Bile leak 04/01/2014 12/30/2016 Right upper quadrant pain 02/14/20142016 documented as of this encounter (statuses as of 10/16/2021) [facility] Narrative* Problem Noted Date Resolved Date Bile leak 04/01/2014 12/30/2016 Right upper quadrant pain 02/14/20142016 documented as of this encounter (statuses as of 10/16/2021) [facility] Narrative* Problem Noted Date Resolved Date Bile leak 04/01/2014 12/30/2016 Right upper quadrant pain 02/14/20142016 documented as of this encounter (statuses as of 10/17/2021) [facility] Narrative* Problem Noted Date Resolved Date Bile leak 04/01/2014 12/30/2016 Right upper quadrant pain 02/14/20142016 documented as of this encounter (statuses as of 10/22/2021) [facility] Narrative* Problem Noted Date Resolved Date Bile leak 04/01/2014 12/30/2016 Right upper quadrant pain 02/14/20142016 documented as of this encounter (statuses as of 10/22/2021) [facility] Narrative* Problem Noted Date Resolved Date Bile leak 04/01/2014 12/30/2016 Right upper quadrant pain 02/14/20142016 documented as of this encounter (statuses as of 10/23/2021) [facility] Narrative* Problem Noted Date Resolved Date Bile leak 04/01/2014 12/30/2016 Right upper quadrant pain 02/14/20142016 documented as of this encounter (statuses as of 10/30/2021) [facility] Narrative* Problem Noted Date Resolved Date Bile leak 04/01/2014 12/30/2016 Right upper quadrant pain 02/14/20142016 documented as of this encounter (statuses as of 10/30/2021) [facility] Narrative* Problem Noted Date Resolved Date Bile leak 04/01/2014 12/30/2016 Right upper quadrant pain 02/14/20142016 documented as of this encounter (statuses as of 11/01/2021) [facility] Narrative* Problem Noted Date Resolved Date Bile leak 04/01/2014 12/30/2016 Right upper quadrant pain 02/14/20142016 documented as of this encounter (statuses as of 11/08/2021) [facility] Narrative* Problem Noted Date Resolved Date Bile leak 04/01/2014 12/30/2016 Right upper quadrant pain 02/14/20142016 documented as of this encounter (statuses as of 11/09/2021) [facility] Narrative* Problem Noted Date Resolved Date Bile leak 04/01/2014 12/30/2016 Right upper quadrant pain 02/14/20142016 documented as of this encounter (statuses as of 12/06/2021) [facility]ative* Problem Noted Date Resolved Date Bile leak 04/01/2014 12/30/2016 Right upper quadrant pain 02/14/20142016 documented as of this encounter (statuses as of 12/07/2021) [facility]* Problem Noted Date Resolved Date Bile leak 04/01/2014 12/30/2016 Right upper quadrant pain 02/14/20142016 documented as of this encounter (statuses as of 12/20/2021) [facility]* Problem Noted Date Resolved Date Bile leak 04/01/2014 12/30/2016 Right upper quadrant pain 02/14/20142016 documented as of this encounter (statuses as of 12/25/2021) [facility]* Problem Noted Date Resolved Date Bile leak 04/01/2014 12/30/2016 Right upper quadrant pain 02/14/20142016 documented as of this encounter (statuses as of 12/25/2021) [facility]* Problem Noted Date Resolved Date Bile leak 04/01/2014 12/30/2016 Right upper quadrant pain 02/14/20142016 documented as of this encounter (statuses as of 12/25/2021) [facility]* Problem Noted Date Resolved Date Bile leak 04/01/2014 12/30/2016 Right upper quadrant pain 02/14/20142016 documented as of this encounter (statuses as of 01/03/2022) [facility]* Problem Noted Date Resolved Date Bile leak 04/01/2014 12/30/2016 Right upper quadrant pain 02/14/20142016 documented as of this encounter (statuses as of 01/08/2022) [facility]* Problem Noted Date Resolved Date Bile leak 04/01/2014 12/30/2016 Right upper quadrant pain 02/14/20142016 documented as of this encounter (statuses as of 01/10/2022) [facility]* Problem Noted Date Resolved Date Bile leak 04/01/2014 12/30/2016 Right upper quadrant pain 02/14/20142016 documented as of this encounter (statuses as of 01/16/2022) [facility]* Problem Noted Date Resolved Date Bile leak 04/01/2014 12/30/2016 Right upper quadrant pain 02/14/20142016 documented as of this encounter (statuses as of 01/30/2022) [facility]* Problem Noted Date Resolved Date Bile leak 04/01/2014 12/30/2016 Right upper quadrant pain 02/14/20142016 documented as of this encounter (statuses as of 03/13/2022) [facility]* Problem Noted Date Resolved Date Bile leak 04/01/2014 12/30/2016 Right upper quadrant pain 02/14/20142016 documented as of this encounter (statuses as of 04/09/2022) [facility]* Problem Noted Date Resolved Date Bile leak 04/01/2014 12/30/2016 Right upper quadrant pain 02/14/20142016 documented as of this encounter (statuses as of 04/16/2022) [facility]* Problem Noted Date Resolved Date Bile leak 04/01/2014 12/30/2016 Right upper quadrant pain 02/14/20142016 documented as of this encounter (statuses as of 04/29/2022) [facility]* Problem Noted Date Resolved Date Bile leak 04/01/2014 12/30/2016 Right upper quadrant pain 02/14/20142016 documented as of this encounter (statuses as of 05/07/2022) [facility]* Problem Noted Date Resolved Date Bile leak 04/01/2014 12/30/2016 Right upper quadrant pain 02/14/20142016 documented as of this encounter (statuses as of 05/07/2022) [facility]* Problem Noted Date Resolved Date Bile leak 04/01/2014 12/30/2016 Right upper quadrant pain 02/14/20142016 documented as of this encounter (statuses as of 05/08/2022) [facility]* Problem Noted Date Resolved Date Bile leak 04/01/2014 12/30/2016 Right upper quadrant pain 02/14/20142016 documented as of this encounter (statuses as of 05/14/2022) [facility]* Problem Noted Date Resolved Date Bile leak 04/01/2014 12/30/2016 Right upper quadrant pain 02/14/20142016 documented as of this encounter (statuses as of 05/20/2022) [facility]* Problem Noted Date Resolved Date Bile leak 04/01/2014 12/30/2016 Right upper quadrant pain 02/14/20142016 documented as of this encounter (statuses as of 06/27/2022) [facility]* Problem Noted Date Resolved Date Bile leak 04/01/2014 12/30/2016 Right upper quadrant pain 02/14/20142016 documented as of this encounter (statuses as of 08/06/2022) [facility]* Problem Noted Date Resolved Date Bile leak 04/01/2014 12/30/2016 Right upper quadrant pain 02/14/20142016 documented as of this encounter (statuses as of 10/08/2022) [facility]* Problem Noted Date Resolved Date Bile leak 04/01/2014 12/30/2016 Right upper quadrant pain 02/14/20142016 documented as of this encounter (statuses as of 10/14/2022) [facility]* Problem Noted Date Resolved Date Bile leak 04/01/2014 12/30/2016 Right upper quadrant pain 02/14/20142016 documented as of this encounter (statuses as of 11/05/2022) [facility]* Problem Noted Date Resolved Date Bile leak 04/01/2014 12/30/2016 Right upper quadrant pain 02/14/20142016 documented as of this encounter (statuses as of 12/11/2022) [facility]* Problem Noted Date Resolved Date Bile leak 04/01/2014 12/30/2016 Right upper quadrant pain 02/14/20142016 documented as of this encounter (statuses as of 12/12/2022) [facility]* Problem Noted Date Diagnosed Date Resolved Date Bile leak 04/01/2014 12/30/2016 Right upper quadrant pain 02/14/2014 documented as of this encounter (statuses as of 03/21/2023) [facility]* Problem Noted Date Diagnosed Date Resolved Date Bile leak 04/01/2014 12/30/2016 Right upper quadrant pain 02/14/2014 documented as of this encounter (statuses as of 04/16/2023) [facility]* Problem Noted Date Diagnosed Date Resolved Date Bile leak 04/01/2014 12/30/2016 Right upper quadrant pain 02/14/2014 documented as of this encounter (statuses as of 05/18/2023) [facility] [facility] History of Past illness Narrative* Problem Noted Date Diagnosed Date Resolved Date Bile leak 04/01/2014 12/30/2016 Right upper quadrant pain 02/14/2014 documented as of this encounter (statuses as of 08/19/2023) [facility] History of Past illness Narrative* Problem Noted Date Diagnosed Date Resolved Date Bile leak 04/01/2014 12/30/2016 Right upper quadrant pain 02/14/2014 documented as of this encounter (statuses as of 08/25/2023) [facility] History of Past illness Narrative* Problem Noted Date Diagnosed Date Resolved Date Bile leak 04/01/2014 12/30/2016 Right upper quadrant pain 02/14/2014 documented as of this encounter (statuses as of 08/26/2023) [facility] History of Past illness Narrative* Problem Noted Date Diagnosed Date Resolved Date Bile leak 04/01/2014 12/30/2016 Right upper quadrant pain 02/14/2014 documented as of this encounter (statuses as of 08/26/2023) [facility] History of Past illness Narrative* Problem Noted Date Diagnosed Date Resolved Date Bile leak 04/01/2014 12/30/2016 Right upper quadrant pain 02/14/2014 documented as of this encounter (statuses as of 10/28/2023) [facility] [place] [facility] Diagnosis Well adult exam- Primary Routine [...] single bacterial disease [facility] Diagnosis Elevated alkaline phosphatase level- Primary Other nonspecific abnormal serum enzyme levels Elevated fasting glucose Impaired fasting glucose Elevated vitamin B12 [facility] Elevated alkaline phosphatase level- Primary Other nonspecific abnormal serum enzyme levels [facility] Diagnosis Elevated alkaline phosphatase level Other nonspecific abnormal serum enzyme levels documented in this encounter [facility] note* Diagnosis Abnormal alkaline phosphatase test Other nonspecific abnormal serum enzyme levels documented in this encounter [facility] note* Diagnosis Elevated alkaline phosphatase level- Primary Other nonspecific abnormal serum enzyme levels Abnormal results of liver function studies Nonspecific abnormal results of liver function study Elevated serum GGT level Other nonspecific abnormal serum enzyme levels Fatty (change of) liver, not elsewhere classified documented in this encounter [facility] note* Diagnosis Essential hypertension- Primary Unspecified essential hypertension documented in this encounter [facility] note* Diagnosis Screening mammogram for breast cancer documented in this encounter [facility] note* Diagnosis Abnormal results of liver function studies Nonspecific abnormal results of liver function study documented in this encounter [facility] note* Diagnosis Pancreatic cyst- Primary Cyst and pseudocyst of pancreas documented in this encounter [facility] note* Diagnosis URI, acute- Primary Acute upper respiratory infections of unspecified site documented in this encounter [facility] note* Diagnosis Onset Date Resolution Status Elevated alkaline phosphatase level acute IPMN (intraductal papillary mucinous neoplasm) acute NAFLD (nonalcoholic fatty liver disease) acute [facility] Work Phone: Evaluation note* Diagnosis Screening for colon cancer Special screening for malignant neoplasms, colon History of colonic polyps Personal history of colonic polyps documented in this encounter [facility] note* Diagnosis Hypertension, essential- Primary Unspecified essential hypertension Pancreatic cyst Cyst and pseudocyst of pancreas documented in this encounter [facility] note* Diagnosis Essential hypertension- Primary Unspecified essential hypertension Leg cramping Cramp of limb Vitamin D deficiency Unspecified vitamin D deficiency Elevated vitamin B12 level Screening for colon cancer Special screening for malignant neoplasms, colon Mixed hyperlipidemia documented in this encounter [facility] note* Diagnosis Hypokalemia- Primary Hypopotassemia documented in this encounter [facility] note* Diagnosis Screening for colon cancer- Primary Special screening for malignant neoplasms, colon History of colonic polyps Personal history of colonic polyps documented in this encounter [facility] note* Diagnosis Onset Date Resolution Status Elevated alkaline phosphatase level acute IPMN (intraductal papillary mucinous neoplasm) acute NAFLD (nonalcoholic fatty liver disease) acute Elevated alkaline phosphatase level acute IPMN (intraductal papillary mucinous neoplasm) acute Liver fibrosis acute [facility] Work Phone: Evaluation note* Diagnosis Tubular adenoma polyp of rectum- Primary Benign neoplasm of rectum and anal canal Screening for colon cancer Special screening for malignant neoplasms, colon History of colonic polyps Personal history of colonic polyps [facility] Diagnosis Essential hypertension- Primary Unspecified essential [...] Cramp of limb [facility] [place] [facility] Diagnosis Need for vaccination- Primary Need for prophylactic vaccination and inoculation against unspecified single disease Need for influenza vaccination Need for prophylactic vaccination and inoculation against influenza [facility] Diagnosis Essential hypertension- Primary Unspecified essential hypertension Chronic midline low back pain without sciatica documented [facility] [place] [facility]* Diagnosis Carotid stenosis, bilateral Occlusion and stenosis of carotid artery without mention of cerebral infarction [facility] [place] [facility]* Diagnosis History of colonic polyps- Primary Personal history of colonic polyps Tubular adenoma Benign neoplasm of unspecified site [facility] [place] [facility]* Diagnosis Pain in both knees, unspecified chronicity- Primary [facility] Diagnosis Onset Date Resolution Status IPMN (intraductal papillary mucinous neoplasm) acute Liver fibrosis acute [facility] Work Phone: Evaluation note* Diagnosis Well adult exam- Primary Routine [...] single bacterial disease [facility] Diagnosis Bacterial sinusitis- Primary Unspecified sinusitis (chronic) documented [facility] [place] [facility] Diagnosis Acute cough- Primary [facility] [place] [facility]* Diagnosis Hypokalemia- Primary Hypopotassemia documented [facility] [place] [facility]* Diagnosis Encounter for screening mammogram for breast cancer documented [facility] [place] [facility]* Diagnosis Onset Date Resolution Status Gastro-esophageal reflux disease without esophagitis chronic STILES (nonalcoholic steatohepatitis) chronic Pancreatic cyst chronic [facility] Work Phone: Evaluation note* Diagnosis GERD without esophagitis Esophageal reflux Essential hypertension Unspecified essential hypertension [facility] [place] [facility] Diagnosis Bursitis of right shoulder- Primary Disorders of bursae and tendons in shoulder region, unspecified Acute pain of right shoulder Cervicalgia [facility] [place] [facility]* Diagnosis Cervicalgia [facility] [place] [facility]* Diagnosis Acute pain of right shoulder- Primary Cervicalgia DDD (degenerative disc disease), cervical Degeneration of cervical intervertebral disc [facility] [place] [facility]* Diagnosis Acute pain of right shoulder- Primary Cervicalgia Bursitis of right shoulder Disorders of bursae and tendons in shoulder region, unspecified [facility] [place] [facility]* Diagnosis Encounter for Medicare annual wellness [...] of other medications [facility] [place] [facility]* Diagnosis Uterovaginal prolapse- Primary Uterovaginal prolapse, unspecified Cystocele, midline documented [facility] [place] [facility]* Diagnosis Uterovaginal prolapse- Primary Uterovaginal prolapse, unspecified [facility] [place] [facility]* Diagnosis Mixed hyperlipidemia Pain in both knees, unspecified chronicity [facility] [place] [facility]* Diagnosis Encounter for screening mammogram for breast cancer documented [facility] [place] [facility]* Diagnosis Essential hypertension Unspecified essential hypertension Mixed hyperlipidemia GERD without esophagitis Esophageal reflux [facility] [place] [facility]* Diagnosis Acute pain of right shoulder [facility] [place] [facility]* Diagnosis Chronic midline low back pain without sciatica documented in this encounter [facility] note* Diagnosis Pain in both knees, unspecified chronicity documented in this encounter [facility] noteNo assessment information availableWOhioHealth [facility] Work Phone: Reason for referral (narrative)* Diagnostic Procedure Only (Routine) - Authorized Specialty Diagnoses / Procedures Referred By Yovany childs Referred To Contact [facility] Diagnoses Screening mammogram for breast cancer Procedures SRINATH SCREENING W JENNIFER SCREENING DIGITAL BREAST TOMOSYNTHESIS BI SCREENING MAMMOGRAPHY BI 2-VIEW BREAST INC CAD Cecily Coelho PA-C [address] [place] [address] [facility] [address] [place] [address] Referral ID Status Reason Start Date Expiration Date Visits Requested Visits Authorized [id number] Authorized Auto-Generat ed Referral 10/01/2021 10/31/2022 1 1 * Consult, Test, Treat (Routine) - Authorized Specialty Diagnoses / Procedures Referred By Yovany childs Referred To Contact General Surgery Diagnoses Tubular adenoma polyp of rectum Procedures CONSULT TO GENERAL SURGERY OFFICE/OUTPATIENT [facility] HIGH MDM 60-74 MINUTES Cecily Coelho PA-C [address] [place] [address] Referral ID Status Reason Start Date Expiration Date Visits Requested Visits Authorized [id number] Authorized PCP Requested Referral 10/01/2021 10/01/2022 1 1 [facility] for referral (narrative)* Diagnostic Procedure Only (Routine) - Authorized Specialty Diagnoses / Procedures Referred By Yovany childs Referred To Contact [facility] Diagnoses Elevated alkaline phosphatase level Procedures US ABD RT UPPER QUADRANT US ABDOMINAL REAL TIME W/IMAGE LIMITED Cecily Coelho PA-C [address] [place] [address] [facility] Referral ID Status Reason Start Date Expiration Date Visits Requested Visits Authorized [id number] Authorized Auto-Generat ed Referral 10/10/2021 11/09/2022 1 1 * Consult, Test, Treat (Routine) - Authorized Specialty Diagnoses / Procedures Referred By Contac t Referred To Contact Gastroenterology Diagnoses Elevated alkaline phosphatase level Procedures CONSULT TO GASTROENTEROLOGY OFFICE/OUTPATIENT NEW HIGH MDM 60-74 MINUTES Cecily Coelho PA-C [address] [place] [address] Referral ID Status Reason Start Date Expiration Date Visits Requested Visits Authorized [id number] Authorized PCP Requested Referral 10/10/2021 10/10/2022 1 1 [facility] for referral (narrative)* Diagnostic Procedure Only (Routine) - Closed Specialty Diagnoses / Procedures Referred By Contac t Referred To Contact [facility] Diagnoses Elevated alkaline phosphatase level Procedures US ABD RT UPPER QUADRANT US ABDOMINAL REAL TIME W/IMAGE LIMITED Cecily Coelho PA-C [address] [place] [address] Us Imaging Referral ID Status Reason Start Date Expiration Date V isits Requested Visits Authorized [id number] Closed Auto-Generate d Referral 10/10/2021 11/09/2022 1 1 [facility] for referral (narrative)* Diagnostic Procedure Only (Routine) - Closed Specialty Diagnoses / Procedures Referred By Contac t Referred To Contact [facility] Diagnoses Screening mammogram for breast cancer Procedures SRINATH SCREENING W JENNIFER SCREENING DIGITAL BREAST TOMOSYNTHESIS BI SCREENING MAMMOGRAPHY BI 2-VIEW BREAST INC CAD Cecily Coelho PA-C [address] [place] [address] [facility] [address] [place] [address] Referral ID Status Reason Start Date Expiration Date V isits Requested Visits Authorized [id number] Closed Auto-Generate d Referral 10/01/2021 10/31/2022 1 1 [facility] for referral (narrative)* Outpatient Procedure (Routine) - Closed Specialty Diagnoses / Procedures Referred By Contac t Referred To Contact [facility] Diagnoses Screening for colon cancer History of colonic polyps Procedures COLONOSCOPY SCREENING COLONOSCOPY FLX DX W/COLLJ SPEC WHEN PFFlorencia Baron PA-C [address] [place] [address] [facility] [address] [place], [place] [id number] Referral ID Status Reason Start Date Expiration Date V isits Requested Visits Authorized [id number] Closed Auto-Generate d Referral 11/06/2021 11/05/2022 1 1 [facility] for referral (narrative)* Outpatient Procedure (Routine) - Closed Specialty Diagnoses / Procedures Referred By Contac t Referred To Contact [facility] Diagnoses Screening for colon cancer History of colonic polyps Procedures COLONOSCOPY SCREENING COLONOSCOPY FLX DX W/COLLJ SPEC WHEN PFFlorencia Baron PA-C [address] [place] [address] [place] [id number] Referral ID Status Reason Start Date Expiration Date V isits Requested Visits Authorized [id number] Closed Auto-Generate d Referral 11/06/2021 11/05/2022 1 1 [facility] for referral (narrative)* Outpatient Procedure (Routine) - Closed Specialty Diagnoses / Procedures Referred By Contac t Referred To Contact [facility] Diagnoses Screening for colon cancer History of colonic polyps Procedures COLONOSCOPY SCREENING COLONOSCOPY FLX DX W/COLLJ SPEC WHEN PFDavid Artis MD [address] [place] [address] [address] Referral ID Status Reason Start Date Expiration Date V isits Requested Visits Authorized [id number] Closed Auto-Generate d Referral 01/11/2022 01/11/2023 1 1 T [facility] for referral (narrative)* Outpatient Procedure (Routine) - Authorized Specialty Diagnoses / Procedures Referred By Contac t Referred To [facility] Diagnoses Carotid stenosis, bilateral Procedures US CAROTID ARTERIES [facility] DUPLEX SCAN EXTRACRANIAL ART COMPL BI STUDY Franklin Arias MD [address] [place] [address] [facility] [place] [address] [place] [address] Referral ID Status Reason Start Date Expiration Date Visits Requested Visits Authorized [id number] Authorized Auto-Generat ed Referral 04/09/2022 04/09/2023 1 1 T [facility] for referral (narrative)* Diagnostic Procedure Only (Routine) - Closed Specialty Diagnoses / Procedures Referred By Contac t Referred To Contact X[facility] IMAGING Diagnoses Chronic midline low back pain without sciatica Procedures XR LUMBAR GENERAL 3V AP/LAT/L5-S1 RADEX SPINE LUMBOSACRAL 2/3 VIEWS Cecily Coelho PA-C [address] [place] [address] Xr Imaging Referral ID Status Reason Start Date Expiration Date V isits Requested Visits Authorized [id number] Closed Auto-Generate d Referral 05/07/2022 06/06/2023 1 1 T [facility] for referral (narrative)* Diagnostic Procedure Only (Urgent) - Closed Specialty Diagnoses / Procedures Referred By Contac t Referred To Contact XR IMAGING Diagnoses Pain in both knees, unspecified chronicity Procedures XR KNEE GENERAL 4V AP BOTH/PA BOTH/LAT/MERC BILATERAL RADIOLOGIC EXAM KNEE COMPLETE 4/MORE VIEWS Hal Desai MD [address] [place] [address] X[facility] Imaging Referral ID Status Reason Start Date Expiration Date V isits Requested Visits Authorized [id number] Closed Auto-Generate d Referral 05/20/2022 06/19/2023 1 1 [facility] for referral (narrative)* Diagnostic Procedure Only (Routine) - Authorized Specialty Diagnoses / Procedures Referred By Contac t Referred To Contact [facility] Diagnoses Encounter for screening mammogram for breast cancer Procedures SRINATH SCREENING SCREENING MAMMOGRAPHY BI 2-VIEW BREAST INC Cecily June PA-C [address] [place] [address] [facility] [address] [place] [phone] Referral ID Status Reason Start Date Expiration Date Visits Requested Visits Authorized [id number] Authorized Auto-Generat ed Referral 10/08/2022 11/07/2023 1 1 [facility] for referral (narrative)* Diagnostic Procedure Only (Routine) - Closed Specialty Diagnoses / Procedures Referred By Yovany t Referred To Contact [facility] Diagnoses Encounter for screening mammogram for breast cancer Procedures SRINATH SCREENING SCREENING MAMMOGRAPHY BI 2-VIEW BREAST INC Cecily June PA-C [address] [place] [address] [facility] [address] [place] [address] Referral ID Status Reason Start Date Expiration Date V isits Requested Visits Authorized [id number] Closed Auto-Generate d Referral 10/08/2022 11/07/2023 1 1 T [facility] for referral (narrative)* Diagnostic Procedure Only (Routine) - Closed Specialty Diagnoses / Procedures Referred By Contac t Referred To Contact XR IMAGING Diagnoses Cervicalgia Procedures XR CERV OTHER 4V AP/LAT/OBL RADEX SPINE CERVICAL 4 OR 5 VIEWS Shantal Galan PA-C [address] [place] [address] [place] [address] Referral ID Status Reason Start Date Expiration Date V isits Requested Visits Authorized [id number] Closed Auto-Generate d Referral 08/25/2023 09/23/2024 1 1 [facility] for referral (narrative)* Diagnostic Procedure Only (Routine) - Closed Specialty Diagnoses / Procedures Referred By Contac t Referred To Contact XR IMAGING Diagnoses Cervicalgia Procedures XR CERV OTHER 4V AP/LAT/OBL RADEX SPINE CERVICAL 4 OR 5 VIEWS Shantal Galan PA-C [address] [place] [address] [place] [address] Referral ID Status Reason Start Date Expiration Date V isits Requested Visits Authorized [id number] Closed Auto-Generate d Referral 08/25/2023 09/23/2024 1 1 [facility] for referral (narrative)* Diagnostic Procedure Only (Routine) - Closed Specialty Diagnoses / Procedures Referred By Contac t Referred To Contact XR IMAGING Diagnoses Acute pain of right shoulder Procedures XR SHOULDER [id number] AP/TRUE AP RIGHT RADEX SHOULDER COMPLETE MINIMUM 2 VIEWS Sudha Parsons APRN.[employer] UP OPERATOR [address] [place] [phone] [place] [address] Referral ID Status Reason Start Date Expiration Date V isits Requested Visits Authorized [id number] Closed Auto-Generate d Referral 06/19/2023 07/18/2024 1 1 [facility] for referral (narrative)* Diagnostic Procedure Only (Routine) - Closed Specialty Diagnoses / Procedures Referred By Contac t Referred To Contact XR IMAGING Diagnoses Chronic midline low back pain without sciatica Procedures XR LUMBAR GENERAL 3V AP/LAT/L5-S1 RADEX SPINE LUMBOSACRAL 2/3 VIEWS Cecily Coelho PA-C [address] [place] [phone] [place] [address] Referral ID Status Reason Start Date Expiration Date V isits Requested Visits Authorized [id number] Closed Auto-Generate d Referral 05/07/2022 06/06/2023 1 1 [facility] for referral (narrative)* Diagnostic Procedure Only (Urgent) - Closed Specialty Diagnoses / Procedures Referred By Contac t Referred To Contact XR IMAGING Diagnoses Pain in both knees, unspecified chronicity Procedures XR KNEE GENERAL 4V AP BOTH/PA BOTH/LAT/MERC BILATERAL RADIOLOGIC EXAM KNEE COMPLETE 4/MORE VIEWS Hal Desai MD [address] [place] [address] [place] [address] Referral ID Status Reason Start Date Expiration Date V isits Requested Visits Authorized [id number] Closed Auto-Generate d Referral 05/20/2022 06/19/2023 1 1 [facility] for referral (narrative)No reason for referral information availableWOhioHealth Doctors Hospital Work Phone: Reason for visit Narrative* Diagnostic Procedure Only (Routine) - Closed Specialty Diagnoses / Procedures Referred By Yovany childs Referred To Contact [facility] IMAG[facility] Diagnoses Elevated alkaline phosphatase level Procedures US ABD RT UPPER QUADRANT US ABDOMINAL REAL TIME W/IMAGE LIMITED Cecily Coehlo PA-C [address] [place] [address] Us Imaging Referral ID Status Reason Start Date Expiration Date V isits Requested Visits Authorized [id number] Closed Auto-Generate d Referral 10/10/2021 11/09/2022 1 1 [facility] for visit Narrative* Diagnostic Procedure Only (Routine) - Closed Specialty Diagnoses / Procedures Referred By Yovany t Referred To Contact [facility] Diagnoses Screening mammogram for breast cancer Procedures SRINATH SCREENING W JENNIFER SCREENING DIGITAL BREAST TOMOSYNTHESIS BI SCREENING MAMMOGRAPHY BI 2-VIEW BREAST INC CAD Cecily Coelho PA-C [address] [place] [address] [facility] [address] [place] [address] Referral ID Status Reason Start Date Expiration Date V isits Requested Visits Authorized [id number] Closed Auto-Generate d Referral 10/01/2021 10/31/2022 1 1 [facility] for visit Narrative* Outpatient Procedure (Routine) - Closed Specialty Diagnoses / Procedures Referred By Contac t Referred To Contact [facility] Diagnoses Screening for colon cancer History of colonic polyps Procedures COLONOSCOPY SCREENING COLONOSCOPY FLX DX W/COLLJ SPEC WHEN PFRMD Florencia Lew PA-C [address] [place] [address] [address] Referral ID Status Reason Start Date Expiration Date V isits Requested Visits Authorized [id number] Closed Auto-Generate d Referral 11/06/2021 11/05/2022 1 1 [facility] for visit Narrative* Outpatient Procedure (Routine) - Closed Specialty Diagnoses / Procedures Referred By Contac t Referred To Contact [facility] Diagnoses Screening for colon cancer History of colonic polyps Procedures COLONOSCOPY SCREENING COLONOSCOPY FLX DX W/COLLJ SPEC WHEN PFRMD David Palmer MD [address] [facility] [address] [address] Referral ID Status Reason Start Date Expiration Date V isits Requested Visits Authorized [id number] Closed Auto-Generate d Referral 01/11/2022 01/11/2023 1 1 [facility] for visit Narrative* Diagnostic Procedure Only (Routine) - Closed Specialty Diagnoses / Procedures Referred By Contac t Referred To Contact [facility] Diagnoses Encounter for screening mammogram for breast cancer Procedures SRINATH SCREENING SCREENING MAMMOGRAPHY BI 2-VIEW BREAST INC CAD Cecily Coelho PA-C [address] [place] [address] [facility] [address] [place] [address] Referral ID Status Reason Start Date Expiration Date V isits Requested Visits Authorized [id number] Closed Auto-Generate d Referral 10/08/2022 11/07/2023 1 1 [facility] for visit Narrative* Diagnostic Procedure Only (Routine) - Closed Specialty Diagnoses / Procedures Referred By Contac t Referred To Contact XR IMAGING Diagnoses Cervicalgia Procedures XR CERV OTHER 4V AP/LAT/OBL RADEX SPINE CERVICAL 4 OR 5 VIEWS Shantal Galan PA-C [address] [place] [address] [place] [address] Referral ID Status Reason Start Date Expiration Date V isits Requested Visits Authorized [id number] Closed Auto-Generate d Referral 08/25/2023 09/23/2024 1 1 [facility] for visit Narrative* Diagnostic Procedure Only (Routine) - Closed Specialty Diagnoses / Procedures Referred By Contac t Referred To Contact BR IMAGING Diagnoses Encounter for screening mammogram for breast cancer Procedures SRINATH SCREENING SCREENING MAMMOGRAPHY BI 2-VIEW BREAST INC CAD Franklin Arias MD [address] [place] [address] Br Imaging [address] [place] [address] Referral ID Status Reason Start Date Expiration Date V isits Requested Visits Authorized [id number] Closed Auto-Generate d Referral 11/04/2023 12/02/2024 1 1 [facility] for visit Narrative* Diagnostic Procedure Only (Routine) - Closed Specialty Diagnoses / Procedures Referred By Contac t Referred To Contact XR IMAGING Diagnoses Acute pain of right shoulder Procedures XR SHOULDER [id number] AP/TRUE AP RIGHT RADEX SHOULDER COMPLETE MINIMUM 2 VIEWS Sudha Parsons APRN.DRILL PRESS SET UP OPERATOR [address] [place] [address] [place] [address] Referral ID Status Reason Start Date Expiration Date V isits Requested Visits Authorized [id number] Closed Auto-Generate d Referral 06/19/2023 07/18/2024 1 1 [facility] for visit Narrative* Diagnostic Procedure Only (Routine) - Closed Specialty Diagnoses / Procedures Referred By Contac t Referred To Contact XR IMAGING Diagnoses Chronic midline low back pain without sciatica Procedures XR LUMBAR GENERAL 3V AP/LAT/L5-S1 RADEX SPINE LUMBOSACRAL 2/3 VIEWS Cecily Coelho PA-C [address] [place] [address] [place] [address] Referral ID Status Reason Start Date Expiration Date V isits Requested Visits Authorized [id number] Closed Auto-Generate d Referral 05/07/2022 06/06/2023 1 [facility] Only (Routine) - Closed Specialty Diagnoses / Procedures Referred By Contac t Referred To Contact XR IMAGING Diagnoses Pain in both knees, unspecified chronicity Procedures XR KNEE GENERAL 4V AP BOTH/PA BOTH/LAT/MERC RIGHT RADIOLOGIC EXAM KNEE COMPLETE 4/MORE VIEWS Hal Desai MD [address] [place] [address] [place] [address] Referral ID Status Reason Start Date Expiration Date V isits Requested Visits Authorized [id number] Closed Auto-Generate d Referral 05/20/2022 06/19/2023 1 1 [facility] Advance Directives No Advanced Directives Records FoundDocuments on File Type Date Recorded Patient Script Manager Expl anation Advance Directive(s) 01/27/2017 10:17 AM Advance Directive(s) 09/14/2015 9:30 AM Advance Directive(s) 09/08/2015 12:19 PM Advance Directive(s) 09/02/2015 10:06 AM Documents on File Type Date Recorded Patient Script Manager Expl anation Advance Directive(s) 01/27/2017 10:17 AM Advance Directive(s) 09/14/2015 9:30 AM Advance Directive(s) 09/08/2015 12:19 PM Advance Directive(s) 09/02/2015 10:06 AM Documents on File Type Date Recorded Patient Script Manager Expl anation Advance Directive(s) 11/13/2021 2:05 PM Advance Directive(s) 01/27/2017 10:17 AM Advance Directive(s) 09/14/2015 9:30 AM Advance Directive(s) 09/08/2015 12:19 PM Advance Directive(s) 09/02/2015 10:06 AM Advance Directive Response Recorded Date/ Time Advance Directives No May 17, 2014 12:10pm Living Will No November 27, 2020 1 0:28am Power of Cork Insulation Setter No November 27, 2020 10:28am Documents on File Type Date Recorded Patient Script Manager Expl anation Advance Directive(s) 12/24/2021 8:40 AM Advance Directive(s) 11/13/2021 2:05 PM Advance Directive(s) 01/27/2017 10:17 AM Advance Directive(s) 09/14/2015 9:30 AM Advance Directive(s) 09/08/2015 12:19 PM Advance Directive(s) 09/02/2015 10:06 AM Documents on File Type Date Recorded Patient Script Manager Expl anation Advance Directive(s) 12/24/2021 8:40 AM Advance Directive(s) 11/13/2021 2:05 PM Advance Directive(s) 01/27/2017 10:17 AM Advance Directive(s) 09/14/2015 9:30 AM Advance Directive(s) 09/08/2015 12:19 PM Advance Directive(s) 09/02/2015 10:06 AM Documents on File Type Date Recorded Patient Script Manager Expl anation Advance Directive(s) 01/29/2022 7:05 PM Advance Directive(s) 12/24/2021 8:40 AM Advance Directive(s) 11/13/2021 2:05 PM Advance Directive(s) 01/27/2017 10:17 AM Advance Directive(s) 09/14/2015 9:30 AM Advance Directive(s) 09/08/2015 12:19 PM Advance Directive(s) 09/02/2015 10:06 AM Advance Directive Response Recorded Date/ Time Advance Directives No May 17, 2014 11:10am Living Will No November 27, 2020 9 :28am Power of Cork Insulation Setter No November 27, 2020 9:28am Advance Directive Response Recorded Date/ Time Advance Directives No May 17, 2014 12:10pm Reason for Referral Specialty Diagnoses / Procedures Referred By Yovany t Referred To Contact MR IMAGING Diagnoses Fatty (change of) liver, not elsewhere classified Procedures MRI LIVER WO/W IVCON MRI ABDOMEN W/O & W/CONTRAST MATERIAL Cecily Coelho PA-C [address] [place] [address] Mr Imaging Referral ID Status Reason Start Date Expiration Date Visits Requested Visits Authorized [id number] Authorized Auto-Generat ed Referral 10/16/2021 12/15/2021 1 1 Specialty Diagnoses / Procedures Referred By Contac t Referred To Contact MR IMAGING Diagnoses Abnormal results of liver function studies Procedures MRI PANC/CHRISTOS WO/W IVCON MRI ABDOMEN W/O & W/CONTRAST MATERIAL Cecily Coelho PA-C [address] [place] [address] Mr Imaging Referral ID Status Reason Start Date Expiration Date V isits Requested Visits Authorized [id number] Closed Auto-Generate d Referral 10/16/2021 11/15/2022 1 1 Specialty Diagnoses / Procedures Referred By Contac t Referred To Contact Gastroenterology Diagnoses Pancreatic cyst Procedures CONSULT TO GASTROENTEROLOGY OFFICE/OUTPATIENT [facility] 60-74 MINUTES Cecily Coelho PA-C [address] [place] [address] Referral ID Status Reason Start Date Expiration Date Visits Requested Visits Authorized [id number] Authorized PCP Requested Referral 11/08/2021 11/08/2022 1 1 Specialty Diagnoses / Procedures Referred By Contac t Referred To Contact General Surgery Diagnoses Screening for colon cancer Procedures CONSULT TO GENERAL SURGERY OFFICE/OUTPATIENT [facility] 60-74 MINUTES Cecily Coelho PA-C [address] [place] [address] Referral ID Status Reason Start Date Expiration Date Visits Requested Visits Authorized [id number] Authorized PCP Requested Referral 01/08/2022 01/08/2023 1 1 Specialty Diagnoses / Procedures Referred By Contac t Referred To Contact Cecily Coelho PA-C [address] [place] [address] Referral ID Status Reason Start Date Expiration Date Visits Re quested Visits Authorized [id number] Closed 1 1 Specialty Diagnoses / Procedures Referred By Contac t Referred To Contact [facility] Diagnoses Acute pain of right shoulder Cervicalgia DDD (degenerative disc disease), cervical Procedures CONSULT TO PHYSICAL THERAPY PHYSICAL THERAPY EVALUATION HIGH COMPLEX 45 MINS Shantal Galan PA-C [address] [place] [address] [facility] [place] [address] [place] [address] Referral ID Status Reason Start Date Expiration Date Visits Requested Visits Authorized [id number] Pending Review Auto-Generat ed Referral 08/26/2023 08/25/2024 1 1 Specialty Diagnoses / Procedures Referred By Contac t Referred To Contact Diagnoses Vaginal anomaly Procedures CONSULT TO CONTRACT ASSOCIATE OFFICE/OUTPATIENT [facility] 60 MINUTES Franklin Arias MD [address] [place] [address] Referral ID Status Reason Start Date Expiration Date Visits Requested Visits Authorized [id number] Authorized PCP Requested Referral Auto-Generate d Referral 11/04/2023 11/03/2024 1 1 Specialty Diagnoses / Procedures Referred By Contac t Referred To Contact BR IMAGING Diagnoses Encounter for screening mammogram for breast cancer Procedures SRINATH SCREENING SCREENING MAMMOGRAPHY BI 2-VIEW BREAST INC CAD Franklin Arias MD [address] [place] [address] Br Imaging [address] [place] [address] Referral ID Status Reason Start Date Expiration Date Visits Requested Visits Authorized [id number] Authorized Auto-Generat ed Referral 11/04/2023 12/02/2024 1 1 Specialty Diagnoses / Procedures Referred By Contac t Referred To Contact Diagnoses Uterovaginal prolapse Procedures CONSULT TO URO GYNECOLOGY OFFICE/OUTPATIENT [facility] 60 MINUTES Hollie Hoover APRN.DRILL PRESS SET UP OPERATOR [address] [place] [address] Referral ID Status Reason Start Date Expiration Date Visits Requested Visits Authorized [id number] Authorized PCP Requested Referral Auto-Generate d Referral 11/10/2023 11/09/2024 1 1 Summary Purpose Family History No Family History Records Found Relationship Condition Age at Onset Recorded Date/T javad mother Diabetes mellitus Unknown Hypertension Unknown Malignant neoplasm Unknown father Malignant neoplasm Unknown sister Malignant neoplasm Unknown brother Malignant neoplasm Unknown Health Concerns Infection Onset Date Last Indicated Resolved Time COVID-19 Rule-Out 12/06/2021 12/06/2021 Infection Onset Date Last Indicated Resolved Time COVID-19 Rule-Out 12/06/2021 12/06/2021 12/07/2021 1:29 AM EDT Infection Onset Date Last Indicated Resolved Time COVID-19 Rule-Out 12/06/2021 12/06/2021 12/07/2021 1:29 AM EDT Chief Complaint and Reason for Visit Chief Complaint COSULT E ORDER Reason for Visit Elevated alkaline ph osphatase level IPMN (intraductal papillary mucinous neoplasm) NAFLD (nonalcoholic fatty liver disease) Chief Complaint COSULT E ORDER FATTY LIVER Reason for Visit Elevated alkaline ph osphatase level IPMN (intraductal papillary mucinous neoplasm) NAFLD (nonalcoholic fatty liver disease) Chief Complaint COSULT E ORDER FATTY LIVER 6 WK FU E-ORDER Reason for Visit Elevated alkaline ph osphatase level IPMN (intraductal papillary mucinous neoplasm) NAFLD (nonalcoholic fatty liver disease) Elevated alkaline phosphatase level IPMN (intraductal papillary mucinous neoplasm) Liver fibrosis Chief Complaint COSULT E ORDER FATTY LIVER 6 WK FU E-ORDER LIVER FIBROSIS Reason for Visit Elevated alkaline ph osphatase level IPMN (intraductal papillary mucinous neoplasm) NAFLD (nonalcoholic fatty liver disease) Elevated alkaline phosphatase level IPMN (intraductal papillary mucinous neoplasm) Liver fibrosis Chief Complaint FU INT LABS Reason for Visit IPMN (intraductal pa pillary mucinous neoplasm) Liver fibrosis Chief Complaint FU INT LABS LIVERE FIBROSIS Reason for Visit IPMN (intraductal pa pillary mucinous neoplasm) Liver fibrosis Chief Complaint 6 mo fu 1ST VISIT 60 E-ORDER Reason for Visit Gastro-esophageal re flux disease without esophagitis STILES (nonalcoholic steatohepatitis) Pancreatic cyst Chief Complaint 6 mo fu 1ST VISIT 60 E-ORDER STILES FOOT Reason for Visit Gastro-esophageal re flux disease without esophagitis STILES (nonalcoholic steatohepatitis) Pancreatic cyst Chief Complaint Admit Date PANCRATIC CYST September 27, 2024 12: 50pm Chief Complaint Admit Date PANCRATIC CYST September 27, 2024 12: 50pm SCREENING October 12, 2024 6:58 am Chief Complaint Admit Date PANCRATIC CYST September 27, 2024 12: 50pm SCREENING October 12, 2024 6:58 am PROLAPSE UTERUS-HYSTO CONSULT (cim) Apri l 2024 10:27am UTERINE PROLAPSE November 02, 2024 3:3 8pm Reason for Visit Admit Date Incomplete uterovaginal prolapse October 122024 10:27am Chief Complaint Admit Date preop H&P UC and sign consent/UDS result s March 22, 2025 1:16pm Medications Administered Section Inactive Administered Medications - [...] or prosecute any alcohol or drug abuse patient.[facility] the event this information is protected by the Federal Confidentiality of Alcohol and Drug Abuse Patient Records regulations: The Federal rules restrict any use of the information to criminally investigate or prosecute any alcohol or drug abuse patient.[facility] the event this information is protected by the Federal Confidentiality of Alcohol and Drug Abuse Patient Records regulations: The Federal rules restrict any use of the information to criminally investigate or prosecute any alcohol or drug abuse patient.[facility] the event this information is protected by the Federal Confidentiality of Alcohol and Drug Abuse Patient Records regulations: The Federal rules restrict any use of the information to criminally investigate or prosecute any alcohol or drug abuse patient.[facility] the event this information is protected by the Federal Confidentiality of Alcohol and Drug Abuse Patient Records regulations: The Federal rules restrict any use of the information to criminally investigate or prosecute any alcohol or drug abuse patient.[facility] the event this information is protected by the Federal Confidentiality of Alcohol and Drug Abuse Patient Records regulations: The Federal rules restrict any use of the information to criminally investigate or prosecute any alcohol or drug abuse patient.[facility] the event this information is protected by the Federal Confidentiality of Alcohol and Drug Abuse Patient Records regulations: The Federal rules restrict any use of the information to criminally investigate or prosecute any alcohol or drug abuse patient.[facility] the event this information is protected by the Federal Confidentiality of Alcohol and Drug Abuse Patient Records regulations: The Federal rules restrict any use of the information to criminally investigate or prosecute any alcohol or drug abuse patient.[facility] the event this information is protected by the Federal Confidentiality of Alcohol and Drug Abuse Patient Records regulations: The Federal rules restrict any use of the information to criminally investigate or prosecute any alcohol or drug abuse patient.[facility] the event this information is protected by the Federal Confidentiality of Alcohol and Drug Abuse Patient Records regulations: The Federal rules restrict any use of the information to criminally investigate or prosecute any alcohol or drug abuse patient.[facility] the event this information is protected by the Federal Confidentiality of Alcohol and Drug Abuse Patient Records regulations: The Federal rules restrict any use of the information to criminally investigate or prosecute any alcohol or drug abuse patient.[facility] the event this information is protected by the Federal Confidentiality of Alcohol and Drug Abuse Patient Records regulations: The Federal rules restrict any use of the information to criminally investigate or prosecute any alcohol or drug abuse patient.[facility] the event this information is protected by the Federal Confidentiality of Alcohol and Drug Abuse Patient Records regulations: The Federal rules restrict any use of the information to criminally investigate or prosecute any alcohol or drug abuse patient.[facility] the event this information is protected by the Federal Confidentiality of Alcohol and Drug Abuse Patient Records regulations: The Federal rules restrict any use of the information to criminally investigate or prosecute any alcohol or drug abuse patient.[facility] the event this information is protected by the Federal Confidentiality of Alcohol and Drug Abuse Patient Records regulations: The Federal rules restrict any use of the information to criminally investigate or prosecute any alcohol or drug abuse patient.[facility] the event this information is protected by the Federal Confidentiality of Alcohol and Drug Abuse Patient Records regulations: The Federal rules restrict any use of the information to criminally investigate or prosecute any alcohol or drug abuse patient.[facility] the event this information is protected by the Federal Confidentiality of Alcohol and Drug Abuse Patient Records regulations: The Federal rules restrict any use of the information to criminally investigate or prosecute any alcohol or drug abuse patient.[facility] the event this information is protected by the Federal Confidentiality of Alcohol and Drug Abuse Patient Records regulations: The Federal rules restrict any use of the information to criminally investigate or prosecute any alcohol or drug abuse patient.[facility] the event this information is protected by the Federal Confidentiality of Alcohol and Drug Abuse Patient Records regulations: The Federal rules restrict any use of the information to criminally investigate or prosecute any alcohol or drug abuse patient.[facility] the event this information is protected by the Federal Confidentiality of Alcohol and Drug Abuse Patient Records regulations: The Federal rules restrict any use of the information to criminally investigate or prosecute any alcohol or drug abuse patient.[facility] the event this information is protected by the Federal Confidentiality of Alcohol and Drug Abuse Patient Records regulations: The Federal rules restrict any use of the information to criminally investigate or prosecute any alcohol or drug abuse patient.[facility] the event this information is protected by the Federal Confidentiality of Alcohol and Drug Abuse Patient Records regulations: The Federal rules restrict any use of the information to criminally investigate or prosecute any alcohol or drug abuse patient.[facility] the event this information is protected by the Federal Confidentiality of Alcohol and Drug Abuse Patient Records regulations: The Federal rules restrict any use of the information to criminally investigate or prosecute any alcohol or drug abuse patient.[facility] the event this information is protected by the Federal Confidentiality of Alcohol and Drug Abuse Patient Records regulations: The Federal rules restrict any use of the information to criminally investigate or prosecute any alcohol or drug abuse patient.[facility] the event this information is protected by the Federal Confidentiality of Alcohol and Drug Abuse Patient Records regulations: The Federal rules restrict any use of the information to criminally investigate or prosecute any alcohol or drug abuse patient.[facility] the event this information is protected by the Federal Confidentiality of Alcohol and Drug Abuse Patient Records regulations: The Federal rules restrict any use of the information to criminally investigate or prosecute any alcohol or drug abuse patient.[facility] the event this information is protected by the Federal Confidentiality of Alcohol and Drug Abuse Patient Records regulations: The Federal rules restrict any use of the information to criminally investigate or prosecute any alcohol or drug abuse patient.[facility] the event this information is protected by the Federal Confidentiality of Alcohol and Drug Abuse Patient Records regulations: The Federal rules restrict any use of the information to criminally investigate or prosecute any alcohol or drug abuse patient.[facility] the event this information is protected by the Federal Confidentiality of Alcohol and Drug Abuse Patient Records regulations: The Federal rules restrict any use of the information to criminally investigate or prosecute any alcohol or drug abuse patient.[facility]In the event this information is protected by the Federal Confidentiality of Alcohol and Drug Abuse Patient Records regulations: The Federal rules restrict any use of the information to criminally investigate or prosecute any alcohol or drug abuse patient.[facility] the event this information is protected by the Federal Confidentiality of Alcohol and Drug Abuse Patient Records regulations: The Federal rules restrict any use of the information to criminally investigate or prosecute any alcohol or drug abuse patient.[facility] the event this information is protected by the Federal Confidentiality of Alcohol and Drug Abuse Patient Records regulations: The Federal rules restrict any use of the information to criminally investigate or prosecute any alcohol or drug abuse patient.[facility] the event this information is protected by the Federal Confidentiality of Alcohol and Drug Abuse Patient Records regulations: The Federal rules restrict any use of the information to criminally investigate or prosecute any alcohol or drug abuse patient.[facility]In the event this information is protected by the Federal Confidentiality of Alcohol and Drug Abuse Patient Records regulations: The Federal rules restrict any use of the information to criminally investigate or prosecute any alcohol or drug abuse patient.[facility] SystemIn the event this information is protected by the Federal Confidentiality of Alcohol and Drug Abuse Patient Records regulations: The Federal rules restrict any use of the information to criminally investigate or prosecute any alcohol or drug abuse patient.[facility]In the event this information is protected by the Federal Confidentiality of Alcohol and Drug Abuse Patient Records regulations: The Federal rules restrict any use of the information to criminally investigate or prosecute any alcohol or drug abuse patient.[facility]In the event this information is protected by the Federal Confidentiality of Alcohol and Drug Abuse Patient Records regulations: The Federal rules restrict any use of the information to criminally investigate or prosecute any alcohol or drug abuse patient.[facility]In the event this information is protected by the Federal Confidentiality of Alcohol and Drug Abuse Patient Records regulations: The Federal rules restrict any use of the information to criminally investigate or prosecute any alcohol or drug abuse patient.[facility] SystemIn the event this information is protected by the Federal Confidentiality of Alcohol and Drug Abuse Patient Records regulations: The Federal rules restrict any use of the information to criminally investigate or prosecute any alcohol or drug abuse patient.[facility]In the event this information is protected by the Federal Confidentiality of Alcohol and Drug Abuse Patient Records regulations: The Federal rules restrict any use of the information to criminally investigate or prosecute any alcohol or drug abuse patient.[facility] SystemIn the event this information is protected by the Federal Confidentiality of Alcohol and Drug Abuse Patient Records regulations: The Federal rules restrict any use of the information to criminally investigate or prosecute any alcohol or drug abuse patient.[facility]In the event this information is protected by the Federal Confidentiality of Alcohol and Drug Abuse Patient Records regulations: The Federal rules restrict any use of the information to criminally investigate or prosecute any alcohol or drug abuse patient.[facility] SystemIn the event this information is protected by the Federal Confidentiality of Alcohol and Drug Abuse Patient Records regulations: The Federal rules restrict any use of the information to criminally investigate or prosecute any alcohol or drug abuse patient.[facility] SystemIn the event this information is protected by the Federal Confidentiality of Alcohol and Drug Abuse Patient Records regulations: The Federal rules restrict any use of the information to criminally investigate or prosecute any alcohol or drug abuse patient.[facility] SystemIn the event this information is protected by the Federal Confidentiality of Alcohol and Drug Abuse Patient Records regulations: The Federal rules restrict any use of the information to criminally investigate or prosecute any alcohol or drug abuse patient.[facility] SystemIn the event this information is protected by the Federal Confidentiality of Alcohol and Drug Abuse Patient Records regulations: The Federal rules restrict any use of the information to criminally investigate or prosecute any alcohol or drug abuse patient.[facility] SystemIn the event this information is protected by the Federal Confidentiality of Alcohol and Drug Abuse Patient Records regulations: The Federal rules restrict any use of the information to criminally investigate or prosecute any alcohol or drug abuse patient.[facility] SystemIn the event this information is protected by the Federal Confidentiality of Alcohol and Drug Abuse Patient Records regulations: The Federal rules restrict any use of the information to criminally investigate or prosecute any alcohol or drug abuse patient.[facility] SystemIn the event this information is protected by the Federal Confidentiality of Alcohol and Drug Abuse Patient Records regulations: The Federal rules restrict any use of the information to criminally investigate or prosecute any alcohol or drug abuse patient.[facility] SystemIn the event this information is protected by the Federal Confidentiality of Alcohol and Drug Abuse Patient Records regulations: The Federal rules restrict any use of the information to criminally investigate or prosecute any alcohol or drug abuse patient.[facility] SystemIn the event this information is protected by the Federal Confidentiality of Alcohol and Drug Abuse Patient Records regulations: The Federal rules restrict any use of the information to criminally investigate or prosecute any alcohol or drug abuse patient.[facility] SystemIn the event this information is protected by the Federal Confidentiality of Alcohol and Drug Abuse Patient Records regulations: The Federal rules restrict any use of the information to criminally investigate or prosecute any alcohol or drug abuse patient.[facility] SystemIn the event this information is protected by the Federal Confidentiality of Alcohol and Drug Abuse Patient Records regulations: The Federal rules restrict any use of the information to criminally investigate or prosecute any alcohol or drug abuse patient.[facility] SystemIn the event this information is protected by the Federal Confidentiality of Alcohol and Drug Abuse Patient Records regulations: The Federal rules restrict any use of the information to criminally investigate or prosecute any alcohol or drug abuse patient.[facility] SystemIn the event this information is protected by the Federal Confidentiality of Alcohol and Drug Abuse Patient Records regulations: The Federal rules restrict any use of the information to criminally investigate or prosecute any alcohol or drug abuse patient.[facility] SystemIn the event this information is protected by the Federal Confidentiality of Alcohol and Drug Abuse Patient Records regulations: The Federal rules restrict any use of the information to criminally investigate or prosecute any alcohol or drug abuse patient.[facility] SystemIn the event this information is protected by the Federal Confidentiality of Alcohol and Drug Abuse Patient Records regulations: The Federal rules restrict any use of the information to criminally investigate or prosecute any alcohol or drug abuse patient.[facility] SystemIn the event this information is protected by the Federal Confidentiality of Alcohol and Drug Abuse Patient Records regulations: The Federal rules restrict any use of the information to criminally investigate or prosecute any alcohol or drug abuse patient.[facility] SystemIn the event this information is protected by the Federal Confidentiality of Alcohol and Drug Abuse Patient Records regulations: The Federal rules restrict any use of the information to criminally investigate or prosecute any alcohol or drug abuse patient.[facility] SystemIn the event this information is protected by the Federal Confidentiality of Alcohol and Drug Abuse Patient Records regulations: The Federal rules restrict any use of the information to criminally investigate or prosecute any alcohol or drug abuse patient.[facility] SystemIn the event this information is protected by the Federal Confidentiality of Alcohol and Drug Abuse Patient Records regulations: The Federal rules restrict any use of the information to criminally investigate or prosecute any alcohol or drug abuse patient.[facility] Reason for Visit (unrecogniz ed section and content) Reason Comments Physical Reason Comments Results Reason Comments Results Reason Comments Blood Pressure Check Reason Comments Orders Specialty Diagnoses / Procedures Referred By Contac t Referred To Contact MR IMAGING Diagnoses Abnormal results of liver function studies Procedures MRI PANC/CHRISTOS WO/W IVCON MRI ABDOMEN W/O & W/CONTRAST MATERIAL Cecily Coelho PA-C [address] [place] [address] Mr Imaging Referral ID Status Reason Start Date Expiration Date V isits Requested Visits Authorized [id number] Closed Auto-Generate d Referral 10/16/2021 11/15/2022 1 [...] right shoulder Procedures CONSULT TO ORTHOPAEDICS OFFICE/OUTPATIENT [facility] 60-74 MINUTES Sudha Parsons APRN.[employer] SET UP OPERATOR [address] [place] [address] Referral ID Status Reason Start Date Expiration Date V isits Requested Visits Authorized [id number] Closed PCP Requested Referral 06/19/2023 06/18/2024 1 1 Reason Comments Established Patient Follow Up Reason Comments Medicare Wellness Exam Reason Comments Vaginal Problem Prolapse? Specialty Diagnoses / Procedures Referred By Contac t Referred To Contact Diagnoses Vaginal anomaly Procedures CONSULT TO CONTRACT ASSOCIATE OFFICE/OUTPATIENT [facility] 60 MINUTES Franklin Arias MD [address] [place] [id number] Referral ID Status Reason Start Date Expiration Date V isits Requested Visits Authorized [id number] Closed PCP Requested Referral Auto-Generated Referral 11/04/2023 11/03/2024 1 1 Reason Comments Patient Update Reason Comments Refill Request Reason Onset Date Comments Blood Pressure Check 12/02/2024 Care Teams (unrecognized sec tion and content) Editor At Large Relationship Specialty Start Date End Date Franklin Arias MD [address] [place] [address] [phone] PCP - General Family Practice 07/17/20 Editor At Large Relationship Specialty Start Date End Date Franklin Arias MD [address] [place] [address] [phone] PCP - General Family Practice 07/17/20 Editor At Large Relationship Specialty Start Date End Date Franklin Arias MD [address] [place] [id number] PCP - General Family Practice 07/17/20 Editor At Large Relationship Specialty Start Date End Date Franklin Arias MD [address] [place] [address] PCP - General Family Practice 07/17/20 Editor At Large Relationship Specialty Start Date End Date Franklin Arias MD [address] [facility] [place] [address] PCP - General Family Practice 07/17/20 Editor At Large Relationship Specialty Start Date End Date Franklin Arias MD [address] [facility] [place] [address] PCP - General Family Practice 07/17/20 Editor At Large Relationship Specialty Start Date End Date Franklin Arias MD [facility] [place] [address] PCP - General Family Practice 07/17/20 Editor At Large Relationship Specialty Start Date End Date Franklin Arias MD [address] [place] [phone] PCP - General Family Practice 07/17/20 Editor At Large Relationship Specialty Start Date End Date Franklin Arias MD [facility] [place] [address] PCP - General Family Practice 07/17/20 Editor At Large Relationship Specialty Start Date End Date Franklin Arias MD [facility] [place] [address] PCP - General Family Practice 07/17/20 Editor At Large Relationship Specialty Start Date End Date Franklin Arias MD [facility] [place] [address] PCP - General Family Practice 07/17/20 Editor At Large Relationship Specialty Start Date End Date Franklin Arias MD [address] [place] [address] [place] [address] PCP - General Family Practice 07/17/20 Editor At Large Relationship Specialty Start Date End Date Franklin Arias MD [address] [facility] [place] [address] PCP - General Family Practice 07/17/20 Editor At Large Relationship Specialty Start Date End Date Franklin Arias MD [address] [facility] [place] [address] PCP - General Family Practice 07/17/20 Editor At Large Relationship Specialty Start Date End Date Franklin Arias MD [facility] [place] [address] PCP - General Family Practice 07/17/20 Editor At Large Relationship Specialty Start Date End Date Franklin Arias MD [facility] [place] [address] PCP - General Family Practice 07/17/20 Editor At Large Relationship Specialty Start Date End Date Franklin Arias MD [facility] [place] [address] PCP - General Family Practice 07/17/20 Editor At Large Relationship Specialty Start Date End Date Franklin Arias MD [facility] [place] [address] PCP - General Family Practice 07/17/20 Editor At Large Relationship Specialty Start Date End Date Franklin Arias MD [facility] [place] [address] PCP - General Family Practice 07/17/20 Editor At Large Relationship Specialty Start Date End Date Franklin Arias MD [facility] [place] [address] PCP - General Family Practice 07/17/20 Editor At Large Relationship Specialty Start Date End Date Franklin Arias MD [address] [place] [address], [place] [address] PCP - General Family Medicine 07/17/20 Editor At Large Relationship Specialty Start Date End Date Franklin Arias MD [address] [facility] [place] [address] PCP - General Family Medicine 07/17/20 Editor At Large Relationship Specialty Start Date End Date Franklin Arias MD [facility] [place] [address] PCP - General Family Medicine 07/17/20 Editor At Large Relationship Specialty Start Date End Date Franklin Arias MD [facility] [place] [address] PCP - General Family Medicine 07/17/20 Editor At Large Relationship Specialty Start Date End Date Franklin Arias MD [address] [place] [address], [place] [address] PCP - General Family Medicine 07/17/20 Editor At Large Relationship Specialty Start Date End Date Franklin Arias MD [address] [place] [address], [place] [address] PCP - General Family Medicine 07/17/20 Editor At Large Relationship Specialty Start Date End Date Franklin Arias MD [facility] [place] [address] PCP - General Family Medicine 07/17/20 Editor At Large Relationship Specialty Start Date End Date Franklin Arias MD [facility] [place] [address] PCP - General Family Medicine 07/17/20 Editor At Large Relationship Specialty Start Date End Date Franklin Arias MD [facility] [place] [address] PCP - General Family Medicine 07/17/20 Editor At Large Relationship Specialty Start Date End Date Franklin Arias MD [address] [place] [address], [place] [address] PCP - General Family Medicine 07/17/20 Editor At Large Relationship Specialty Start Date End Date Franklin Arias MD [address] [place] [address] PCP - General Family Medicine 07/17/20 Editor At Large Relationship Specialty Start Date End Date Franklin Arias MD [address] [place] [address] PCP - General Family Medicine 07/17/20 Editor At Large Relationship Specialty Start Date End Date Franklin Arias MD [address] [place] [address] PCP - General Family Medicine 07/17/20 Editor At Large Relationship Specialty Start Date End Date Franklin Arias MD [address] [place] [address] PCP - General Family Medicine 07/17/20 Editor At Large Relationship Specialty Start Date End Date Franklin Arias MD [address] [place] [address] PCP - General Family Medicine 07/17/20 Editor At Large Relationship Specialty Start Date End Date Franklin Arias MD [address] [place] [address] PCP - General Family Medicine 07/17/20 Team Status: Active Member Role Status Dates Dr. Miguel Ángel Miguel MD Family Provider Active DEVAUGHN Monroy Primary Care Provider Active Team Status: Inactive Member Role Status Dates DEVAUGHN Monroy Primary Care Provider, Referri Provider Active Dr. Migue Hutchinson MD Attending Provider Active Team Status: Inactive Member Role Status Dates DEVAUGHN Monroy Primary Care Provider Active Dr. Migue Hutchinson MD Attending Provider, Referring Jimmy collins Active Editor At Large Relationship Specialty Start Date End Date Franklin Arias MD [address] [place] [address] PCP - General Family Medicine 07/17/20 Editor At Large Relationship Specialty Start Date End Date Franklin Arias MD [address] [place] [address] PCP - General Family Medicine 07/17/20 Editor At Large Relationship Specialty Start Date End Date Franklin Arias MD [address] [place] [address] PCP - General Family Medicine 07/17/20 Editor At Large Relationship Specialty Start Date End Date Franklin Arias MD [address] [place] [address] PCP - General Family Medicine 07/17/20 Team Status: Active Member Role Status Dates DEVAUGHN Monroy Primary Care Provider Active Dr. Migue Hutchinson MD Attending Provider, Camilla collins Active Team Status: Inactive Member Role Status Dates DEVAUGHN Monroy Primary Care Provider Active Ed Physician Provider Emergency Provider Active Editor At Large Relationship Specialty Start Date End Date Franklin Arias MD [address] [place] [address] PCP - General Family Medicine 07/17/20 Editor At Large Relationship Specialty Start Date End Date Franklin Arias MD [address] [place] [address] PCP - General Family Medicine 07/17/20 Editor At Large Relationship Specialty Start Date End Date Franklin Arias MD [address] [place] [address] PCP - General Family Medicine 07/17/20 Editor At Large Relationship Specialty Start Date End Date Franklin Arias MD [address] [place] [address] PCP - General Family Medicine 07/17/20 Editor At Large Relationship Specialty Start Date End Date Franklin Arias MD [address] [place] [address] PCP - General Family Medicine 07/17/20 Editor At Large Relationship Specialty Start Date End Date Franklin Arias MD [address] [place] [address] PCP - General Family Medicine 07/17/20 Editor At Large Relationship Specialty Start Date End Date Franklin Arias MD [address] [place] [address] PCP - General Family Medicine 07/17/20 Editor At Large Relationship Specialty Start Date End Date Franklin Arias MD [address] [place] [address] PCP - General Family Medicine 07/17/20 Editor At Large Relationship Specialty Start Date End Date Franklin Arias MD [address] [place] [address] PCP - General Family Medicine 07/17/20 Editor At Large Relationship Specialty Start Date End Date Franklin Arias MD [address] [place] [address] PCP - General Family Medicine 07/17/20 Editor At Large Relationship Specialty Start Date End Date Franklin Arias MD [address] [place] [address] PCP - General Family Medicine 07/17/20 Team Status: Active Member Role Status Dates Dr. Paula Barrera DO Primary Care Provider Active Team Status: Inactive Member Role Status Dates Dr. Paula Barrera DO Primary Care Provider Active Start: September 27, 2024 End: September 27, 2024 Dr. Migue Hutchinson MD Attending Provider Active Start: September 27, 2024 End: September 27, 2024 Dr. Migue Hutchinson MD Referring Provider Active Start: September 27, 2024 End: September 27, 2024 Team Status: Inactive Member Role Status Dates Dr. Paula Barrera DO Primary Care Provider Active Start: October 12, 2024 End: October 12, 2024 Dr. Paula Barrera DO Attending Provider Active Start: October 12, 2024 End: October 12, 2024 Dr. Paula Barrera DO Referring Provider Active Start: October 12, 2024 End: October 12, 2024 Team Status: Inactive Member Role Status Dates Dr. Paula Barrera DO Primary Care Provider Active Start: October 29, 2024 End: October 29, 2024 Dr. Paula Barrera DO Referring Provider Active Start: October 29, 2024 End: October 29, 2024 Dr. Ina Leon MD Attending Provider Active Start: October 29, 2024 End: October 29, 2024 Team Status: Inactive Member Role Status Dates Dr. Paula Barrera DO Primary Care Provider Active Start: November 02, 2024 End: November 02, 2024 Dr. Ina Leon MD Attending Provider Active Start: November 02, 2024 End: November 02, 2024 Dr. Ina Leon MD Referring Provider Active Start: November 02, 2024 End: November 02, 2024 Editor At Large Relationship Specialty Start Date End Date Franklin Arias MD [address] [place], [place] [address] PCP - General Family Medicine 10/18/24 Cecily Coelho PA-C [address] [place], [place] [id number] [facility] Family Medicine 06/19/24 12/12/24 Sudha Parsons APRN.CNP [address] [place] [address] [facility] 12/13/24 Cecily Coelho PA-C [address] [place] [address] [facility] 12/13/24 Team Status: Active Member Role/Relationship Status Dates Dr. Paula Barrera DO Primary Care Provider Active Team Status: Inactive Member Role/Relationship Status Dates Dr. Paula Barrera DO Primary Care Provider Active Start: January 11, 2025 Dr. Shaquille Ayala MD Attending Provider Active Start: January 11, 2025 Team Status: Inactive Member Role/Relationship Status Dates Dr. Paula Barrera DO Primary Care Provider Active Start: March 22, 2025 End: March 22, 2025 Dr. Paula Barrera DO Referring Provider Active Start: March 22, 2025 End: March 22, 2025 Dr. Shaquille Ayala MD Attending Provider Active Start: March 22, 2025 End: March 22, 2025 INFORMATION SOURCE (unrecogn ized section and content) DATE CREATED AUTHOR 10/18/2021 [facility] DATE CREATED AUTHOR AUTHOR'S ORGANIZ ATION 02/20/2025 [facility] DATE CREATED AUTHOR AUTHOR'S ORGANIZ ATION 03/22/2025 [facility] Goals (unrecognized section and content) Goals may be documented in a n alternate sectionGoals may be documented in an alternate sectionGoals may be documented in an alternate sectionGoals may be documented in an alternate sectionGoals may be documented in an alternate sectionGoals may be documented in an alternate sectionGoals may be documented in an alternate sectionGoals may be documented in an alternate sectionGoals may be documented in an alternate sectionGoals may be documented in an alternate sectionGoals may be documented in an alternate sectionGoals may be documented in an alternate section Inactive Administered Medications - up to 3 most recent administrations Administered Medications (un recognized section and content) Medication Order MAR Action Action Date Dose Rate Site betamethasone acetate-betamethasone sodium phosphate 6 mg injection (CELESTONE) 6 mg, Injection - FOR ORTHO USE ONLY, ONCE, 1 dose, Starting on Fri08/25/23 at 1448, Until Fri08/25/23 at 1448 Given 08/25/2023 2:48 PM EST 6 mg Sh oulder, Right lidocaine (PF) 10 mg/mL (1 %) 4 mL injection (XYLOCAINE) 4 mL, Injection - FOR ORTHO USE ONLY, ONCE, 1 dose, Starting on Fri08/25/23 at 1448, Until Fri08/25/23 at 1448 Given 08/25/2023 2:48 PM EST 4 mL Sh oulder, Right FOR RECORDS PERTAINING TO PATIENTS WHO ARE [...] BE BASED ON THE PRIMARY CLINICAL RECORDS. [facility]. provides no warranty or guarantee of the accuracy or completeness of information in this document.
== END | disposition home or self-care (01) ==
LOC: MTLAB 14:15
PROVIDERS: PCP Internal Medicine; Referring Provider Urology; Visit Provider Urology
DX: K74.00 Hepatic fibrosis, unspecified (principal); N81.2 Incomplete uterovaginal prolapse
CPT/HCPCS: 36415; 80048; 85025

== ENCOUNTER 2025-04-15 10:58 | Observation (INO) | payer MEDICARE, SELFPAY ==
--- NOTE | 2025-04-05 11:52 | EKG12_ITS ---
Test Reason : PREOP Blood Pressure : */* mmHG Vent. Rate : 57 BPM Atrial Rate : 57 BPM P-R Int : 192 ms QRS Dur : 88 ms QT Int : 450 ms P-R-T Axes : 44 19 33 degrees QTcB Int : 438 ms Sinus bradycardia Possible Left atrial enlargement Low voltage QRS Borderline ECG When compared with ECG of 12-Mar-2014 16:36, Vent. rate has decreased by 49 bpm Confirmed by ANURAG PRAKASH MD ([id number]), magazine editor BURAK GOOD ([id number]) on 04/06/2025 8:13:36 AM Referred By: Ina Leon Confirmed By: ANURAG PRAKASH MD
[2025-04-05 13:21] LABS: Magnesium 1.6 mg/dL (1.5-2.2)
[2025-04-05 14:41] LABS: AST(SGOT) 38 U/L (<=31); Alanine Aminotransfer ALT/SGPT 41 U/L (<=34); Albumin, Serum 4.4 g/dL (3.4-4.8); Alkaline Phosphatase 113 U/L (35-104); Anion Gap 14 (5-15); BUN 19 mg/dL (4-19); BUN/Creat Ratio 21.0 RATIO (10-20); Calcium,Total 9.4 mg/dL (7.6-11.0); Carbon Dioxide 22.6 mmol/L (21.0-32.0); Chloride 102 mmol/L (98-108); Globulin 2.7 g/dL (2.2-4.2); Glucose 111 mg/dL (70-99); Potassium 3.7 mmol/L (3.3-5.1)
--- NOTE | 2025-04-06 11:58 | PAT.ANESEVAL ---
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 When Was Last Pacemaker Check QUESTION #4 FULL TEXT: You/Your Family Experience fever (hyperthermia) with Anesthesia Last Oral Intake Last Oral intake: Last Oral Intake NPO since Meds taken in AM with sips of water? Meds patient instructed to take am of surgery PONV PONV - accounts receivable specialist: PONV - accounts receivable specialist Female Yes 04/01/25 09:25 HX of Motion Sickness Yes 04/01/25 09:25 HX of N/V After Surgery No 04/01/25 09:25 Non-Smoker Yes 04/01/25 09:25 Duration of Surgery greater Yes 04/01/25 09:25 than 60 minutes Number of Risk Factors 4 04/01/25 09:25 PONV Score Severe Risk 04/01/25 09:25 Height & Weight Height & Weight: Anesthesia: Height & Weight Height 5 ft 5 in 10/29/24 10:40 Respiratory Assessment Respiratory Assessment - accounts receivable specialist: Respiratory Tract Infection Hx - accounts receivable specialist Hx Respiratory Tract Infection No 04/01/25 09:25 STOP Sleep Apnea STOP Sleep Apnea - accounts receivable specialist: STOP Sleep Apnea - accounts receivable specialist Hx Hypertension Yes 04/01/25 09:25 Hx Sleep Apnea No 04/01/25 09:25 CPAP No 11/30/20 08:07 BIPAP No 04/27/18 11:57 Do you snore loudly (louder No 04/01/25 09:25 than talking or can be heard Do you often feel tired/ No 04/01/25 09:25 fatigued/ sleepy during daytime? Has anyone observed you stop No 04/01/25 09:25 breathing during sleep? STOP Results Negative 04/01/25 09:25 QUESTION #5 FULL TEXT : Do you snore loudly (louder than talking or can be heard through closed doors)? Tobacco Use History Tobacco Use History - accounts receivable specialist: Tobacco Use History - accounts receivable specialist Tobacco Use Non-smoker 11/27/20 10:28 Smoking Status Former smoker 04/01/25 09:25 Hx Tobacco Use No 04/01/25 09:25 Years Smoking Packs Smoked per Day Smoking Cessation Date was Yes - quit smoking within 15 04/01/25 09:25 within the last 15 years years Hx Smoking Cessation Date 06/14/15 04/01/25 09:25 Hx Smoking Cessation No 04/01/25 09:25 Counseling Hematologic Medial History Hematologic Hx - accounts receivable specialist: Hematologic Medical Hx - admeasurer Hx of Blood Transfusion No 04/01/25 09:25 Hx of Transfusion in last 3 No 04/01/25 09:25 Months Date of Last Transfusion (if within last 3 months) Ever experience any problems No 04/01/25 09:25 with transfusion(s)? Specify any problems Hx of Preganancy in last 3 N/A 04/01/25 09:25 Months Nurse Filling Out Transfusion [facility]BU[facility]ER 04/01/25 09:25 & Questions: Date: 04/01/25 04/01/25 09:25 Time: 09:04/01/25 09:25 Patient unable to answer at this time (ie. confused, unrespo /Reproduction History /Reproductive History - accounts receivable specialist: /Reproductive Hx- accounts receivable specialist Hx Now No 04/01/25 09:25 Gestational Age (in weeks): EDC: Hx Hx Para Hx Section SAB No 04/01/25 09:25 PFSH Medical History Post-menopausal Diabetes Arthritis History of echocardiogram Urge incontinence Nocturia Overactive bladder Vaginal atrophy IPMN (intraductal papillary mucinous neoplasm) NAFLD (nonalcoholic fatty liver disease) Gall stones Carotid stenosis Elevated alkaline phosphatase level Wears glasses Wears dentures High cholesterol Gastric reflux Former smoker Leg cramps GERD (gastroesophageal reflux disease) Hyperlipidemia Hypertension Home Medications ?Medication ?Instructions ?Recorded ?Last Taken ?Type losartan 100 mg tablet 100 mg PO DAILY 10/29/21 02/05/22 07:00 History hydrochlorothiazide 12.5 mg capsule 12.5 mg PO DAILY 02/05/22 02/05/22 07:00 History atorvastatin 40 mg tablet 40 mg PO QHS 10/21/22 Unknown History metformin 500 mg tablet 500 mg PO BID 90 days #180 tabs 08/12/23 Unknown Rx pantoprazole 40 mg tablet,delayed 40 mg PO DAILY 1 month #30 tabs 11/18/23 Unknown Rx release ursodiol 300 mg capsule 300 mg PO BID liver fibrosis #180 01/08/24 Unknown Rx caps estradiol 0.01% (0.1 mg/gram) 1 vaginal 3XW 04/05/25 Unknown History vaginal cream Allergy/AdvReac Type Severity Reaction Status Date / Time aspirin Allergy Itching Verified 04/05/25 13:13 codeine Allergy swells up Verified 04/05/25 13:13 hydrocodone Allergy diaphoretic, Verified 04/05/25 13:13 trouble breathing ibuprofen Allergy Hives Verified 04/05/25 13:13 lisinopril AdvReac Intermediate cough Verified 04/05/25 13:13 Family History Mother Diabetes Hypertension Cancer unknown Father Cancer unknown Sister Cancer Brain Brother Cancer unknown Surgical History History of D&C History of esophagogastroduodenoscopy (EGD) (~02/09/18) History of left knee surgery Hx laparoscopic cholecystectomy Social History number of children: 2 current occupational status: employed current occupation: [employer] Smoking Status: Former smoker alcohol intake: never substance use type: does not use what type of physical activity do you participate in: none additional social history: - Tony Audit: Pertinent Findings Pertinent Findings EKG Perinent findings: EKG 04/05/2025. Sinus bradycardia. Possible left atrial enlargement. When compared with EKG of March 12, 2014 ventricular rate has decreased by 49 bpm. Echo (EF%) pertinent findings: Echo 05/03/2024. Left ventricle ejection fraction 70%. Right ventricular systolic pressure estimated to be 37 mmHg. Recommendation Anesthesia Recommendation Anesthesia recommendation: OPTIMIZED for anesthesia
[2025-04-15] VITALS (20 sets, daily range): BP systolic 127–162; BP diastolic 64–100; PULSE 67–86; RESP 16–20; TEMP 36.1–36.8; O2SAT 92–100; BMI 38.2; BMI 38.9
--- OUTSIDE RECORDS SUMMARY | 2025-04-15 05:30 | XMS RPT_ITS | CCD ---
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 Name Role Phone Eliezer BURCH, Franklin Kang Primary Care Provider DEVAUGHN Dalal Primary Care Provider [phone] DEVAUGHN Dalal Referring Provider Verónica RODRÍGUEZ, GOLF BALL WINDER-C Blanca Nicholas Attending Provider [phone] Franklin Arias MD Primary Care Provider Franklin Arias MD Primary Care Provider Franklin Arias MD Primary Care Provider DEVAUGHN Dalal Primary Care Provider [phone] DEVAUGHN Dalal Referring Provider Verónica RODRÍGUEZ, ANNE-C Blanca Nicholas Attending Provider [phone] DEVAUGHN Dalal Primary Care Provider [phone] DEVAUGHN Dalal Referring Provider Dr. Migue Hutchinson Attending Provider Franklin Arias MD Primary Care Provider Franklin Arias MD Primary Care Provider Dr. Paula Barrera DO Primary Care Provider Jasper BURCH, Dr. Camarena Attending Provider Dr. Migue Hutchinson MD Referring Provider Dr. Paula Barrera DO Attending Provider Dr. Paula Barrera DO Referring Provider Carolyn BURCH, Dr. Buckley Attending Provider Carolyn BURCH, Dr. Buckley Referring Provider Meliton MACK, Cecily Unavailable Eliezer BURCH, Franklin Kang Primary Care Provider Issa CONCRETE PUMP OPERATOR HELPER.REBRANDER, Sudha Unavailable Meliton MACK, Cecily Unavailable Holly SMILEY, Dr. Mitchell Primary Care Provider Riddhi BURCH, Dr. Tolentino Attending Provider Holly SMILEY, Dr. Mitchell Referring Provider [phone] Holly SMILEY, Dr. Mitchell Primary Care Physician Riddhi BURCH, Dr. Tolentino Attending Physician Riddhi BURCH, Dr. Tolentino Referring Provider Holly, Paula Primary Care Unavailable Shaquille yAala Consulting Unavailable Marcanthony, Ina Referring Unavailable Marcanthony, Ina Attending Unavailable Holly, Paula Primary Care Unavailable Marcanthony, Ina Referring Unavailable Marcanthony, Ina Attending Unavailable Holly, Paula Primary Care Unavailable Shaquille Ayala Referring Unavailable Shaquille Ayala Attending Unavailable Holly, Paula Referring Unavailable Holly, Paula Attending Unavailable Holly, Paula Primary Care Unavailable Holly, Paula Referring Unavailable Holly, Paula Attending Unavailable Holly, Paula Primary Care Unavailable Holly, Paula Primary Care Unavailable Holly, Paula Referring Unavailable Marcanthony, Ina Attending Unavailable Holly, Paula Primary Care Unavailable Holly, Palua Referring Unavailable WyneskiShubhamy Attending Unavailable Holly, Paula Primary Care Unavailable Holly, Paula Referring Unavailable Marcanthony, Ina Attending Unavailable Holly, Paula Primary Care Unavailable WynesShaquille knutson Attending Unavailable Holly, Paula Referring Unavailable Alonzo Baker Attending Unavailable Holly, Paula Primary Care Unavailable David Lay Attending Unavailable Holly, Paula Primary Care Unavailable Holly, Paula Primary Care Unavailable Wyneski, Shaquille Attending Unavailable Paula Barrera Referring Unavailable Paula Barrera Primary Care Unavailable Migue Hutchinson Referring Unavailable Migue Hutchinson Attending Unavailable Paula Barrera Primary Care Unavailable Paula Barrera Referring Unavailable Paula Barrera Attending Unavailable Allergies Allergy Classification Reported Allergen(s) Allergy Type Date of Onset Reaction(s) Facility Angiotensin Converting Enzyme (DANISHA) Inhibitors (1 source) Lisinopril Drug Allergy 4 Cough [facility] NSAIDs (1 source) Ibuprofen Drug Allergy 5 Intolerance, GI Upset [facility] Opioid Agonists (3 sources) Codeine Drug Allergy 5 Intolerance, Cough, Vomiting, Shortness of Breath, GI Upset, Anaphylaxis, Other: See Comments [facility] Promethazine (1 source) Promethazine Drug Allergy 4 Itching [facility] (20 sources) Codeine Drug Allergy 5 Intolerance [facility] Work Phone: (20 sources) HYDROcodone Drug Allergy 5 Cough, Vomiting, Shortness of Breath [facility] Work Phone: (20 sources) Ibuprofen Drug Allergy 5 Intolerance, GI Upset [facility] Work Phone: (20 sources) Lisinopril Drug Allergy 4 Cough [facility] Work Phone: (20 sources) oxyCODONE Drug Allergy 4 GI Upset, Anaphylaxis, Other: See Comments [facility] Work Phone: (20 sources) Promethazine Drug Allergy 4 Itching [facility] Work Phone: (20 sources) Salicylic Acid Drug Allergy 5 [facility] Work Phone: (13 sources) Aspirin Drug Allergy 2 Itching [facility] (20 sources) Salicylate product Drug Allergy 5 [facility] Work Phone: (1 source) Aspirin Drug Allergy 5 [facility] Repository (1 source) Codeine Drug Allergy 5 [facility] Repository (1 source) HYDROcodone Drug Allergy 5 [facility] Repository (1 source) Ibuprofen Drug Allergy 5 [facility] Repository (1 source) Lisinopril Drug Allergy 5 [facility] Repository Medications Current Medications Medication Drug Class(es) [...] take 1 tablet by mouth at bedtime Start: 01-26-2018 End: 10-21-2022 take 1 tablet by mouth once daily Atorvastatin 20 mg tablet Discontinued 20 mg PO daily January 26, 2018 12:00am October 21, 2022 1:57pm Comment on above: Take 1 tablet by nilda daily at bedtime. For cholesterol. benzonatate 100 mg oral capsule (17 sources) Non-narcotic Antitussive Start: 3 End: take 1 capsule by mouth every [...] on above: Take 1 capsule by mo [facility] every 8 hours as needed for cough for up to 15 days. Take 1 capsule by mo [facility] three times daily as needed for up to 7 days. cholecalciferol 0.01 mg oral tablet (9 sources) Vitamin D take 1 capsule by mouth once daily cholecalciferol (VITAMIN D-3) 400 unit tab Take 400 Units by mouth two times a day. Take 1 capsule by mouth daily for liver fibrosis Active diclofenac sodium 0.01 mg/mg topical gel (20 sources) Nonsteroidal Anti-inflammatory Drug Start: 022 End: 024 apply 4 g topically four times daily diclofenac (VOLTAREN) 1 % topical gel Indications: Pain in both knees, unspecified chronicity Apply 4 g to affected area four times daily. 4 g 4 11/11/2023 Active Comment on above: Apply 4 g to affecte d area four times daily. fluconazole 150 mg oral tablet (2 sources) Azole Antifungal Start: 023 End: 023 fluconazole (DIFLUCAN) 150 mg tablet Take 1 [...] above: Take 1 tablet by nilda th one time only for 1 dose. Repeat in 3 days as needed. hydroCHLOROthiazide 25 mg oral tablet (20 sources) Thiazide Diuretic Start: End: take 1 tablet by mouth once daily hydroCHLOROthiazide 25 mg tablet Indications: Essential hypertension Take 1 tablet by mouth once daily. 90 tablet 11/04/2023 Active Start: 02-05-2022 Start: 12-25-2021 End: 04-09-2022 Hydrochlorothiazide Active C AP February 04, 2022 11:00pm Comment on above: Take 1 capsule by mo [facility] once daily. Take 1 tablet by [facility] once daily. iv contrast (will be provided [...] take 1 tablet by mouth once daily Start: 11-27-2020 End: 01-22-2022 take 1 tablet by mouth once daily Losartan 50 mg Tablet Discontinued 50 mg PO DAILY November 27, 2020 12:00am January 22, 2022 1:40pm Comment on above: Take 1 tablet by nilda th once daily. metFORMIN hydrochloride 500 mg oral tablet (20 sources) Biguanide Start: 08-12-2023 take 1 tablet by mouth every twelve hours metFORMIN (GLUCOPHAGE) 500 mg tablet Take 1 tablet by mouth every 12 hours. 08/12/2023 Active Start: 08-12-2023 take 1 tablet by mouth twice d aily Comment on above: Take 1 tablet by nilda th every 12 hours. pantoprazole 40 mg delayed release oral tablet (20 sources) Proton Pump Inhibitor Start: 11-18-2023 take 1 tablet by mouth once daily 1 hour(s) before breakfast Start: 11-27-2020 End: 11-18-2023 take [...] on above: Take 4 tablets by mo [facility] once daily for 3 days, THEN 2 [...] Take 1 tablet by nilda once daily. Completed/Discontinued Medications Medication Drug Class(es) [...] (50,000 unit) Capsule Discontinued 1250 ug PO [place] November 27, 2020 12:00am August 12, 2023 1:25pm Comment on above: Take 1 capsule by [facility] one time a week. 10 ml lidocaine hydrochloride 10 mg/ml injection (1 source) Antiarrhythmic, Amide Local Anesthetic Start: End: lidocaine (PF) 10 mg/mL (1 %) 4 mL injection (XYLOCAINE) lisinopril 10 mg oral tablet (13 sources) Angiotensin Converting Enzyme Inhibitor Start: End: take 1 tablet by mouth once daily Lisinopril 10 MG tablet Discontinued 10 mg PO DAILY February 24, 2014 12:00am January 26, 2018 3:23pm omeprazole 20 mg delayed release oral capsule (13 sources) Proton Pump Inhibitor Start: End: take 1 capsule by mouth once daily Omeprazole 20 MG capsule Discontinued 20 mg PO DAILY September 01, 2013 1:00am January 26, 2018 3:24pm ondansetron 4 mg disintegrating oral tablet (13 sources) Serotonin-3 Receptor Antagonist Start: End: take [...] Comment on above: Take 1 tablet by [facility] daily with breakfast. simvastatin 20 mg oral tablet (13 sources) HMG-CoA Reductase Inhibitor Start: 4 End: 8 take 1 tablet by mouth at bedtime Simvastatin 20 MG tablet Discontinued 20 mg PO AT BEDTIME September 01, 2013 1:00am January 26, 2018 3:22pm 125 ml sodium chloride 9 mg/ml prefilled syringe (20 sources) Start: 1 End: 2 sodium chloride 0.9 % (flush) 10 mL (BD POSIFLUSH) traMADol hydrochloride 50 mg oral tablet (13 sources) Opioid Agonist Start: 4 End: 8 [...] on above: Take 1 capsule by mo [facility] twice daily. Per Gastro: Dr. Corona vitamin [...] by patience alatorre twice daily. Per Gastro: Dr. Corona Problems Active Problems Problem Classification Problem Date [...] [Other congenital malformations of vagina] 11-04-2023 Chronic Genitourinary symptoms and ill-defined conditions (3 sources) Urge incontinence of urine; Translations: [Urge incontinence] Onset: 04-07-2025 03-22-2025 Chronic Genitourinary symptoms and ill-defined conditions (2 sources) Nocturia; Translations: [Nocturia] 03-22-2025 Episodic Hepatitis (10 sources) Nonalcoholic steatohepatitis; Translations: [Nonalcoholic steatohepatitis (STILES)] Onset: 10-15-2024 10-21-2022 Chronic Immunizations and screening for infectious disease (5 sources) Vaccination needed; Translations: [Encounter for immunization] Episodic Menopausal disorders (2 sources) Atrophy of vagina; Translations: [Postmenopausal atrophic vaginitis] 03-22-2025 Chronic Neoplasms of unspecified nature or uncertain behavior [...] [Bursitis of right shoulder] 08-25-2023 Episodic Other diseases of bladder and urethra (2 sources) Overactive bladder; Translations: [Overactive bladder] 03-22-2025 Chronic Other female genital disorders (20 sources) Endometrial hyperplasia; Translations: [Endometrial hyperplasia, unspecified] Onset: 12-18-2020 01-29-2021 Chronic Other female genital disorders (13 sources) Polyp of corpus uteri; Translations: [Polyp of corpus uteri] 11-30-2020 Episodic Other liver diseases (1 source) Steatosis of liver; Translations: [Fatty (change of) liver, not elsewhere classified] Chronic Other liver diseases (4 sources) Non-alcoholic fatty liver; Translations: [Fatty (change of) liver, not elsewhere classified] Chronic Other liver diseases (13 sources) Fatty (change of) liver, not elsewhere [...] 11-09-2021 Episodic Prolapse of female genital organs (10 sources) Uterovaginal prolapse; Translations: [Uterovaginal prolapse, unspecified] [...] pain without sciatica] Episodic Unclassified (1 source) Hepatic fibrosis, unspecified; Translations: [Hepatic fibrosis, unspecified] Onset: 03-30-2025 Past or Other Problems Problem Classification Problem [...] Test Name Value Interpretation Reference Range Facility Office Visit Reporton 2024 Office Visit Report [facility] [address] [place] [address] OFFICE VISIT Date of Service: 04/07/25 MR#: [id number] Acct: [id number] Patient: ISABEL SAHNI Rep #: [id number] : 1955 Provider: Dr. Shaquille Lee i, MD Age/Sex: 69/F Location[place] [facility] Status: Signed Intake Vital Signs 10/29/24 10:40 03/22/25 13:43 04/05/25 13:11 Height 5 ft 5 in 5 ft 5 in 5 ft 5 in Weight: 205 lb 8 oz BMI 34.2 BP 149/83 H Intake Visit Reasons: Pre-op urine / sign consent Chief Complaint: urine drop off pre op culture Allergies aspirin Allergy (Verified 04/05/25 13:13) Itching codeine Allergy (Verified 04/05/25 13:13) swells up hydrocodone Allergy (Verified 04/05/25 13:13) diaphoretic, trouble breathing ibuprofen Allergy (Verified 04/05/25 13:13) Hives lisinopril Adverse Reaction (Intermediate, Verified 04/05/25 13:13) cough Have you fallen in the past year?: No Nurse's Note: preop urine culture Results POC UA Auto w/o Microscopy Office Urine Color Last Edit by Maria Eugenia Stuart on 04/07/25 14:27 Office Urine Clarity Last Edit by Maria Eugenia Stuart on 04/07/25 14:27 Office Urine Glucose Negative Last Edit by Maria Eugenia Stuart on 04/07/25 14:27 Office Urine Ketones Negative Last Edit by Maria Eugenia Stuart on 04/07/25 14:27 Office Urine Bilirubin Negative Last Edit by Maria Eugenia Stuart on 04/07/25 14:27 Office Urine Urobilinogen 0.2 mg/dL Last Edit by Maria Eugenia Stuart on 04/07/25 14:27 Off Ur Spec L[place]y 1.010 Last Edit by Maria Eugenia Stuart on 04/07/25 14:27 Office Urine pH 5.5 Last Edit by Maria Eugenia Stuart on 04/07/25 14:27 Office Urine Protein 1+ Last Edit by Maria Eugenia Stuart on 04/07/25 14:27 Office Urine Blood Negative Last Edit by Maria Eugenia Stuart on 04/07/25 14:27 Office Urine Blood Hemolyzed Negative Last Edit by Maria Eugenia Stuart on 04/07/25 14:27 Office Urine Nitrate Negative Last Edit by Maria Eugenia Stuart on 04/07/25 14:27 Off Ur Leukocytes Negatve Last Edit by Maria Eugenia Stuart on 04/07/25 14:27 Assessment and Plan Assessment and Plan Orders: Orders POC UA Auto w/o Microscopy 04/07/25 N39.41 - Urge incontinence Clinical Quality Measures Falls Risk Screening/Assistive Devices Have you fallen in the past year?: No 04/11/25 5442 Date Shaquille Alexander Signature: Date (if applicable) CC: [facility] MR/[place]man 04-06-2025 MR/PAT.[facility] Medical Records Department [address] [place] [address] PAT - Anesthesia 04/06/25 1158 MR#: [id number] Acct: [id number] Name: ISABEL SAHNI Rep #: [id number] : 1955 69 From: Aneudy Lopez MD PCP: Dr. Paula Barrera, DO Status:PRE [facility] Y Race: C Location: [facility] Pre-Assessment Diagnosis/Proposed Procedure Planned Operative Procedure(s): (B) ERAS, Hysterectomy,Total Vaginal, Bilateral Salpingectomy ANTERIOR/POSTERIOR REPAIR POSSIBLE BILATERAL SSLF WITH DERMIS, POSSIBLE MID URETHERAL SLING CYSTOSCOPY, BILATERAL URETERAL CATHETERIZATION Anesthesia History Anesthesia History - hand embroiderer: Anesthesia History - hand embroiderer Hx Hospitalization No 04/01/25 09:25 Any Problems With Anesthesia No 04/01/25 09:25 Cholinesterase deficiency No 04/01/25 09:25 You/Your Family Experience No 04/01/25 09:25 fever (hyperthermia) with Relationship Recent Exposure to Contagious No 11/30/20 06:19 Disease Does patient have nerve No 04/01/25 09:25 stimulator Patient instructed to have device shut off --Does patient have Pacemaker or ICD? When Was Last Pacemaker Check QUESTION #4 FULL TEXT: You/Your Family Experience fever (hyperthermia) with Anesthesia Last Oral Intake Last Oral intake: Last Oral Intake NPO since Meds taken in AM with sips of water? Meds patient instructed to take am of surgery PONV PONV - hand embroiderer: PONV - hand embroiderer Female Yes 04/01/25 09:25 HX of Motion Sickness Yes 04/01/25 09:25 HX of N/V After Surgery No 04/01/25 09:25 Non-Smoker Yes 04/01/25 09:25 Duration of Surgery greater Yes 04/01/25 09:25 than 60 minutes Number of Risk Factors 4 04/01/25 09:25 PONV Score Severe Risk 04/01/25 09:25 Height Weight Height Weight: Anesthesia: Height Weight Height 5 ft 5 in 10/29/24 10:40 Respiratory Assessment Respiratory Assessment - hand embroiderer: Respiratory Tract Infection Hx - hand embroiderer Hx Respiratory Tract Infection No 04/01/25 09:25 STOP Sleep Apnea STOP Sleep Apnea - hand embroiderer: STOP Sleep Apnea - hand embroiderer Hx Hypertension Yes 04/01/25 09:25 Hx Sleep Apnea No 04/01/25 09:25 CPAP No 11/30/20 08:07 BIPAP No 04/27/18 11:57 Do you snore loudly (louder No 04/01/25 09:25 than talking or can be heard Do you often feel tired/ No 04/01/25 09:25 fatigued/ sleepy during daytime? Has anyone observed you stop No 04/01/25 09:25 breathing during sleep? STOP Results Negative 04/01/25 09:25 QUESTION #5 FULL TEXT : Do you snore loudly (louder than talking or can be heard through closed doors)? Tobacco Use History Tobacco Use History - hand embroiderer: Tobacco Use History - hand embroiderer Tobacco Use Non-smoker 11/27/20 10:28 Smoking Status Former smoker 04/01/25 09:25 Hx Tobacco Use No 04/01/25 09:25 Years Smoking Packs Smoked per Day Smoking Cessation Date was Yes - quit smoking within 04/01/25 09:25 within the last 15 years years Hx Smoking Cessation Date 06/14/15 04/01/25 09:25 Hx Smoking Cessation No 04/01/25 09:25 Counseling Hematologic Medial History Hematologic Hx - hand embroiderer: Hematologic Medical Hx - documentation lead Hx of Blood Transfusion No 04/01/25 09:25 Hx of Transfusion in last 3 No 04/01/25 09:25 Months Date of Last Transfusion (if within last 3 months) Ever experience any problems No 04/01/25 09:25 with transfusion(s)? Specify any problems Hx of Preganancy in last 3 N/A 04/01/25 09:25 Months Nurse Filling Out Transfusion NBUCHER 04/01/25 09:25 Questions: Date: 04/01/25 04/01/25 09:25 Time: :04/01/25 09:25 Patient unable to answer at this time (ie. confused, unrespo /Reproduction History /Reproductive History - hand embroiderer: /Reproductive Hx- hand embroiderer Hx Now No 04/01/25 09:25 Gestational Age (in weeks): EDC: Hx Hx Para Hx Section SAB No 04/01/25 09:25 [facility] Medical History Post-menopausal Diabetes Arthritis History of echocardiogram Urge incontinence Nocturia Overactive bladder Vaginal atrophy IPMN (intraductal papillary mucinous neoplasm) NAFLD (nonalcoholic fatty liver disease) Gall stones Carotid stenosis Elevated alkaline phosphatase level Wears glasses Wears dentures High cholesterol Gastric reflux Former smoker Leg cramps GERD (gastroesophageal reflux disease) Hyperlipidemia Hypertension Home Medications ???Medication ???Instructions ???Recorded ???Last Taken ???Type losartan 100 mg tablet 100 mg (more content not included)... [facility] 12 Lead EKGon 04-05-2025 12 Lead EKG [facility] [address] [place] [address] 12 Lead EKG 04/05/25 1206 MR#: [id number] Acct: [id number] Name: ISABEL SAHNI Rep #: [id number] : 1955 69 From: Charles Stevens MD Attending Dr: Dr. Ina Leon MD Status: PRE [facility] Ordering Dr: Ina Leon MD Date: 04/05/25 Location: [facility] Sex: F C Admitted: Test Reason : PREOP Blood Pressure : */* mmHG Vent. Rate : 57 BPM Atrial Rate : 57 BPM P-R Int : 192 ms QRS Dur : 88 ms QT Int : 450 ms P-R-T Axes : 44 19 33 degrees QTcB Int : 438 ms Sinus bradycardia Possible Left atrial enlargement Low voltage QRS Borderline ECG When compared with ECG of 12-Mar-2014 16:36, Vent. rate has decreased by 49 bpm Confirmed by CHARLES STEVENS MD ([id number]), order editor BURAK GOOD ([id number]) on 04/06/2025 8:13:36 AM Referred By: Ina Leon Confirmed By: CHARLES STEVENS MD 04/06/25 0813 Date Charles Stevens MD CC: Dr. Paula Barrera DO; Dr. Ina Leon MD Signed Normal [facility] Comprehensive Metabolic Prof veronica 04-05-2025 Albumin [Mass/Vol] 4.4 g/dL Normal 3.4-4.8 [facility] Comment on above: Performed By: #### L 500.4050, BTSPAT #### [facility] [address] [place], [address] Albumin/Globulin [Mass ratio] 1.6 {ratio} Normal 0.9-2.4 [facility] Comment on above: Performed By: #### L 500.4050, BTSPAT #### [facility] [address] [place], [address] ALK PHOS 113 U/L High 35-104 [facility] Comment on above: Performed By: #### L 500.4050, BTSPAT #### [facility] [address] [place], [address] ALT [Catalytic activity/Vol] 41 U/L High <=34 [facility] Comment on above: Performed By: #### L 500.4050, BTSPAT #### [facility] [address] [place], [address] AST [Catalytic activity/Vol] 38 U/L High <=31 [facility] Comment on above: Performed By: #### L 500.4050, BTSPAT #### [facility] [address] [place], [address] Bilirubin [Mass/Vol] 0.81 mg/dL Normal 0.00-1.30 [facility] Comment on above: Performed By: #### L 500.4050, BTSPAT #### [facility] [address] [place], [address] BUN/CRE 21.0 RATIO High 10-20 [facility] Comment on above: Performed By: #### L 500.4050, BTSPAT #### [facility] [address] [place], [address] Calcium [Mass/Vol] 9.4 mg/dL Normal 7.6-11.0 [facility] Comment on above: Performed By: #### L 500.4050, BTSPAT #### [facility] [address] [place], [address] Chloride [Moles/Vol] 102 mmol/L Normal 98-108 [facility] Comment on above: Performed By: #### L 500.4050, BTSPAT #### [facility] [address] [place], [address] CO2 [Moles/Vol] 22.6 mmol/L Normal 21.0-32.0 [facility] Comment on above: Performed By: #### L 500.4050, BTSPAT #### [facility] [address] [place], [address] Creatinine [Mass/Vol] 0.90 mg/dL Normal 0.70-1.20 [facility] Comment on above: Performed By: #### L 500.4050, BTSPAT #### [facility] [address] [place], [address] GAP 14 Normal 5-15 [facility] Comment on above: Performed By: #### L 500.4050, BTSPAT #### [facility] [address] [place], [address] GFR/1.73 sq M.predicted among non-blacks MDRD (S/P/Bld) [Vol rate/Area] 70 mL/min/{1.73_m2} Normal >60 [facility] Comment on above: Result Comment: mL/m in/1.73m2 CKD-EPI Creatinine Equation (2020) Performed By: #### L 500.4050, BTSPAT #### [facility] [address] [place], [address] Globulin (S) [Mass/Vol] 2.7 g/dL Normal 2.2-4.2 [facility] Comment on above: Performed By: #### L 500.4050, BTSPAT #### [facility] [address] [place], [address] Glucose [Mass/Vol] 111 mg/dL High 70-99 [facility] Comment on above: Performed By: #### L 500.4050, BTSPAT #### [facility] [address] [place], [address] Potassium [Moles/Vol] 3.7 mmol/L Normal 3.3-5.1 [facility] Comment on above: Performed By: #### L 500.4050, BTSPAT #### [facility] [address] [place], [address] Sodium [Moles/Vol] 139 mmol/L Normal 133-145 [facility] Comment on above: Performed By: #### L 500.4050, BTSPAT #### [facility] [address] [place], [address] T PROT 7.1 g/dL Normal 5.9-8.4 [facility] Comment on above: Performed By: #### L 500.4050, BTSPAT #### [facility] [address] [place], [address] Urea nitrogen [Mass/Vol] 19 mg/dL Normal 4-19 [facility] Comment on above: Performed By: #### L 500.4050, BTSPAT #### [facility] [address] [place], [address] Hemoglobin A1con 04-05-2025 HbA1c (Bld) [Mass fraction] 5.7 % Normal <=5.6 [facility] Comment on above: Result Comment: Norm al < 5.7 % Prediabetic 5.7 - 6.4 % Diabetic >or= 6.5 % Please note range changes. Performed By: #### L 501.5200, L501.9985 #### [facility] [address] [place], [address] Magnesiumon 04-05-2025 Magnesium [Mass/Vol] 1.6 mg/dL Normal 1.5-2.2 [facility] Comment on above: Performed By: #### L 501.5200, L501.9985 #### [facility] [address] [place], [address] [employer]ocomotive [employer] Apprentice Office Visit Reporton 04-05-2025 [employer]ocom[employer]ic [employer]ice Office Visit Report [facility]'[address], [address] [place] [address] OFFICE VISIT Date of Service: 04/05/25 MR#: [id number] Acct: [id number] Name: ISABEL SAHNI Rep #: [id number] : 1955 Provider: Dr. Ina cain MD Age/Sex: 69/F [place] [facility] [place]: Signed Intake Vital Signs 10/29/24 10:40 03/22/25 13:43 04/05/25 13:11 Height 5 ft 5 in 5 ft 5 in 5 ft 5 in Weight: 208 lb 4 oz 205 lb 8 oz BMI 34.6 34.2 BP 131/70 H 149/83 H Pulse 61 Intake Visit [facility] Engraving Operator Required: No Is patient in pain?: Yes (soreness from fall 3 days ago) Allergies aspirin Allergy (Verified 04/05/25 13:13) Itching codeine Allergy (Verified 04/05/25 13:13) swells up hydrocodone Allergy (Verified 04/05/25 13:13) diaphoretic, trouble breathing ibuprofen Allergy (Verified 04/05/25 13:13) Hives lisinopril Adverse Reaction (Intermediate, Verified 04/05/25 13:13) cough Medications ???Medication ???Instructions ???Recorded ???Confirmed ???Type losartan 100 mg tablet 100 mg PO DAILY 10/29/21 04/05/25 History hydrochlorothiazide 12.5 mg capsule 12.5 mg PO DAILY 02/05/2204/05 History atorvastatin 40 mg tablet 40 mg PO QHS 10/21/22 04/05/25 His tory metformin 500 mg tablet 500 mg PO BID 90 days #180 tabs 04/05/25 Rx pantoprazole 40 mg tablet,delayed 40 mg PO DAILY 1 month #30 tabs 0 11/18/23 04/05/25 Rx release ursodiol 300 mg capsule 300 mg PO BID liver fibrosis #180 01/08/24 04/05/25 Rx caps estradiol 0.01% (0.1 mg/gram) 1 vaginal 3XW 04/05/25 04/05/25 Hi story vaginal cream Is last menstrual period known: No Post menopausal: Yes Patient : No : No [facility] Medical History Post-menopausal Diabetes Arthritis History of echocardiogram Urge incontinence Nocturia Overactive bladder Vaginal atrophy IPMN (intraductal papillary mucinous neoplasm) NAFLD (nonalcoholic fatty liver disease) Gall stones Carotid stenosis Elevated alkaline phosphatase level Wears glasses Wears dentures High cholesterol Gastric reflux Former smoker Leg cramps GERD (gastroesophageal reflux disease) Hyperlipidemia Hypertension Surgical History History of D C History of esophagogastroduodenoscopy (EGD) ( 02/09/18) History of left knee surgery Hx laparoscopic cholecystectomy Family History Mother Diabetes Hypertension Cancer unknown Father Cancer unknown Sister Cancer Brain Brother Cancer unknown Social History number of children: 2 current occupational status: employed current occupation: [employer] Smoking Status: Former smoker alcohol intake: never substance use type: does not use what type of physical activity do you participate in: none additional social history: - Tony [employer] Ayala Combo Details: ISABEL SAHNI is a 69 year old who presents for preop visit. she has vaginal prolapse and uterine prolapse. she has felt a bulge and feels it going in and out over the last few months increasing. she feels it when she wipes, feels increased discharge, does go in when she stands up. Female Reproductive History Questions: metrorrhagia: No, dyspareunia: No and PCB: No Menopausal Symptoms: No night sweats History 2 Elective abortions Hx Para 2 Spontaneous abortions Hx # Term Pregnancies Ectopic pregnancies Hx # Pregnancies Multiple births # of living children 1 Past Pregnancies Del. Date Name GA/Weeks Outcome Route Bth Weight Gen Labor Lgth Anesthesia Del Locatn Provider [...] Neuro Neuro: Reports system reviewed and no addit (more content not included)... Normal [facility] Type AND Screen - PAT ONLYon 04-05-2025 ABO and Rh group Nom (Bld) Blood group A Rh(D) positive Normal [facility] Comment on above: Order Comment: Reaso n for Laboratory Test preop [id number] N/A N N S hysterectomy Performed By: #### L 500.4050, BTSPAT #### [facility] [address] [place], [place], [id number] Absolute lymphocyte countOrd ered By: Shaquille Ayala on 03-22-2025 Lymphocytes Auto (Unsp spec) [#/Vol] 1.95 10*3/uL 0.83-4.51 [facility] Absolute neutrophil countOrd ered By: Shaquille Ayala on 03-22-2025 Neutrophils (Bld) [#/Vol] 2.5 10*3/uL 2.0-7.7 [facility] Anion gap in Serum or Plasma Ordered By: Shaquille Ayala on 03-22-2025 Anion gap [Moles/Vol] 11 mmol/L 5-15 [facility] Automated lymphocyte count a s percentage of total leukocytesOrdered By: Shaquille Ayala on 03-22-2025 Lymphocytes/100 WBC Auto (Unsp spec) 38.2 % 19-41 [facility] BUN/creatinine ratioOrdered By: Shaquille Ayala on 03-22-2025 Urea nitrogen/Creatinine [Mass ratio] 23.5 mg/mg High 10-20 [facility] Basic Metabolic Profile (BMP )on 03-22-2025 BUN/CRE 23.5 RATIO High 10-20 [facility] Comment on above: Order Comment: CAMILO CLEMONS WANTED SHAQUILLE WYNESKIS LABS DONE ONLY pre op for prolapse Performed By: #### L 100.0100, L500.2500 #### [facility] [address] [place], [address] Calcium [Mass/Vol] 9.5 mg/dL Normal 7.6-11.0 [facility] Comment on above: Order Comment: CAMILO CLEMONS WANTED SHAQUILLE WYNESKIS LABS DONE ONLY pre op for prolapse Performed By: #### L 100.0100, L500.2500 #### [facility] [address] [place], [address] Chloride [Moles/Vol] 106 mmol/L Normal 98-108 [facility] Comment on above: Order Comment: CAMILO CLEMONS WANTED SHAQUILLE WYNESKIS LABS DONE ONLY pre op for prolapse Performed By: #### L 100.0100, L500.2500 #### [facility] [address] [place], [address] CO2 [Moles/Vol] 25.6 mmol/L Normal 21.0-32.0 [facility] Comment on above: Order Comment: CAMILO CLEMONS WANTED SHAQUILLE WYNESKIS LABS DONE ONLY pre op for prolapse Performed By: #### L 100.0100, L500.2500 #### [facility] [address] [place], [address] Creatinine [Mass/Vol] 0.80 mg/dL Normal 0.70-1.20 [facility] Comment on above: Order Comment: CAMILO CLEMONS WANTED SHAQUILLE WYNESKIS LABS DONE ONLY pre op for prolapse Performed By: #### L 100.0100, L500.2500 #### [facility] [address] [place], [address] GAP 11 Normal 5-15 [facility] Comment on above: Order Comment: CAMILO CLEMONS WANTED SHAQUILLE WYNESKIS LABS DONE ONLY pre op for prolapse Performed By: #### L 100.0100, L500.2500 #### [facility] [address] [place], [address] GFR/1.73 sq M.predicted among non-blacks MDRD (S/P/Bld) [Vol rate/Area] 81 mL/min/{1.73_m2} Normal >60 [facility] Comment on above: Order Comment: CAMILO CLEMONS WANTED SHAQUILLE WYNESKIS LABS DONE ONLY pre op for prolapse Result Comment: mL/m in/1.73m2 CKD-EPI Creatinine Equation (2020) Performed By: #### L 100.0100, L500.2500 #### [facility] [address] [place], [address] Glucose [Mass/Vol] 68 mg/dL Low 70-99 [facility] Comment on above: Order Comment: CAMILO CLEMONS WANTED SHAQUILLE WYNESKIS LABS DONE ONLY pre op for prolapse Performed By: #### L 100.0100, L500.2500 #### [facility] [address] [place], [address] Potassium [Moles/Vol] 4.1 mmol/L Normal 3.3-5.1 [facility] Comment on above: Order Comment: CAMILO CLEMONS WANTED SHAQUILLE WYNESKIS LABS DONE ONLY pre op for prolapse Performed By: #### L 100.0100, L500.2500 #### [facility] [address] [place], [address] Sodium [Moles/Vol] 143 mmol/L Normal 133-145 [facility] Comment on above: Order Comment: CAMILO CLEMONS WANTED SHAQUILLE [facility] DONE ONLY pre op for prolapse Performed By: #### L 100.0100, L500.2500 #### [facility] [address] [place], [address] Urea nitrogen [Mass/Vol] 19 mg/dL Normal 4-19 [facility] Comment on above: Order Comment: CAMILO CLEMONS WANTED SHAQUILLE [employer] [facility]S DONE ONLY pre op for prolapse Performed By: #### L 100.0100, L500.2500 #### [facility] [address] [place], [address] Basophil percentageOrdered B y: Shaquille Ayala on 03-22-2025 Basophils/100 WBC (Bld) 0.6 % 0-1 [facility] CBC W/Diff, Automatedon Absolute Lymph 1.95 X10 3/uL Normal 0.83-4.51 [facility] Comment on above: Order Comment: Comme nts: pre op for prolapse Performed By: #### L 100.0100, L500.2500 #### [facility] [address] [place], [address] Absolute Neut 2.5 X10 3/uL Normal 2.0-7.7 [facility] Comment on above: Order Comment: Comme nts: pre op for prolapse Performed By: #### L 100.0100, L500.2500 #### [facility] [address] [place], [address] Basophils/100 WBC (Bld) 0.6 % Normal 0-1 [facility] Comment on above: Order Comment: Comme nts: pre op for prolapse Performed By: #### L 100.0100, L500.2500 #### [facility] [address] [place], [address] Eosinophils/100 WBC (Bld) 2.3 % Normal 0-5 [facility] Comment on above: Order Comment: Comme nts: pre op for prolapse Performed By: #### L 100.0100, L500.2500 #### [facility] [address] [place], [address] Erythrocyte distribution width (RBC) [Ratio] 12.8 % Normal 11.6-14.6 [facility] Comment on above: Order Comment: Comme nts: pre op for prolapse Performed By: #### L 100.0100, L500.2500 #### [facility] [address] [place], [address] Hematocrit (Bld) [Volume fraction] 39.7 % Normal 37-47 [facility] Comment on above: Order Comment: Commyahir nts: pre op for prolapse Performed By: #### L 100.0100, L500.2500 #### [facility] [address] [place], [address] Hemoglobin (Bld) [Mass/Vol] 13.2 g/dL Normal 12.0-15.0 [facility] Comment on above: Order Comment: Comme nts: pre op for prolapse Performed By: #### L 100.0100, L500.2500 #### [facility] [address] [place], [address] IG% 0.200 Normal 0.0-0.9 [facility] Comment on above: Order Comment: Comme nts: pre op for prolapse Result Comment: IG% - Immature Granulocytes (promyelocytes, myelocytes and metamyelocytes) > 1% indicates that a LEFT SHIFT is Present. Performed By: #### L 100.0100, L500.2500 #### [facility] [address] [place], [address] Lymphocytes/100 WBC (Bld) 38.2 % Normal 19-41 [facility] Comment on above: Order Comment: Comme nts: pre op for prolapse Performed By: #### L 100.0100, L500.2500 #### [facility] [address] [place], [address] MCH (RBC) [Entitic mass] 33.3 pg High 27.0-32.0 [facility] Comment on above: Order Comment: Comme nts: pre op for prolapse Performed By: #### L 100.0100, L500.2500 #### [facility] [address] [place], [address] MCHC (RBC) [Mass/Vol] 33.2 g/dL Normal 32-36 [facility] Comment on above: Order Comment: Comme nts: pre op for prolapse Performed By: #### L 100.0100, L500.2500 #### [facility] [address] [place], [address] MCV (RBC) [Entitic vol] 100.3 fL High 81-99 [facility] Comment on above: Order Comment: Comme nts: pre op for prolapse Performed By: #### L 100.0100, L500.2500 #### [facility] [address] [place], [address] Monocytes/100 WBC (Bld) 10.2 % High 0-10 [facility] Comment on above: Order Comment: Comme nts: pre op for prolapse Performed By: #### L 100.0100, L500.2500 #### [facility] [address] [place], [address] Neutrophils/100 WBC (Bld) 48.5 % Normal 47-70 [facility] Comment on above: Order Comment: Comme nts: pre op for prolapse Performed By: #### L 100.0100, L500.2500 #### [facility] [address] [place], [address] Nucleated RBC (Bld) [#/Vol] 0 10*3/uL Normal 0-5 [facility] Comment on above: Order Comment: Comme nts: pre op for prolapse Performed By: #### L 100.0100, L500.2500 #### [facility] [address] [place], [address] Platelet mean volume (Bld) [Entitic vol] 11.8 fL Normal 6.2-12.0 [facility] Comment on above: Order Comment: Comme nts: pre op for prolapse Performed By: #### L 100.0100, L500.2500 #### [facility] [address] [place], [address] Platelets (Bld) [#/Vol] 177 10*3/uL Normal 150-450 [facility] Comment on above: Order Comment: Comme nts: pre op for prolapse Performed By: #### L 100.0100, L500.2500 #### [facility] [address] [place], [address] RBC (Bld) [#/Vol] 3.96 10*6/uL Low 4.2-5.4 [facility] Comment on above: Order Comment: Comme nts: pre op for prolapse Performed By: #### L 100.0100, L500.2500 #### [facility] [address] [place], [address] RDW SD 46.5 fl High 35.1-43.9 [facility] Comment on above: Order Comment: Comme nts: pre op for prolapse Performed By: #### L 100.0100, L500.2500 #### [facility] [address] [place], [address] WBC (Bld) [#/Vol] 5.1 10*3/uL Normal 4.4-11.0 [facility] Comment on above: Order Comment: Comme nts: pre op for prolapse Performed By: #### L 100.0100, L500.2500 #### [facility] [address] [place], [address] Carbon dioxide, total [Moles /volume] in Central venous bloodOrdered By: Shaquille Ayala on 03-22-2025 CO2 [Moles/Vol] 25.6 mmol/L 21.0-32.0 [facility] Chloride assayOrdered By: Juan David Ayala on 03-22-2025 Chloride [Moles/Vol] 106 mmol/L 98-108 [facility] Eosinophil percentageOrdered By: Shaquille Ayala on 03-22-2025 Eosinophils/100 WBC (Bld) 2.3 % 0-5 [facility] Erythrocyte distribution wid th ratioOrdered By: Shaquilleadelia Ayala on 03-22-2025 Erythrocyte distribution width (RBC) [Ratio] 12.8 % 11.6-14.6 [facility] Erythrocyte distribution wid th standard deviationOrdered By: Shaquille Ayala on 03-22-2025 Erythrocyte distribution width (RBC) [Ratio] 46.5 fl High 35.1-43.9 [facility] Glomerular filtration rate ( GFR) estimation/1.73 sq m using serum, plasma, or whole bOrdered By: Shaquille Ayala on 03-22-2025 GFR/1.73 sq M.predicted among non-blacks MDRD (S/P/Bld) [Vol rate/Area] 81 mL/min/{1.73_m2} >60 [facility] Comment on above: mL/min/1.73m2 CKD-EP I Creatinine Equation (2020) Hematocrit Auto (Bld) [Volum e fraction]Ordered By: Shaquille Ayala on 03-22-2025 Hematocrit (Bld) [Volume fraction] 39.7 % 37-47 [facility] Hemoglobin measurementOrdere d By: Shaquille Ayala on 03-22-2025 Hemoglobin (Bld) [Mass/Vol] 13.2 g/dL 12.0-15.0 [facility] Immature granulocytes/100 WB C Auto (Bld)Ordered By: Shaquille Ayala on 03-22-2025 Immature granulocytes/100 WBC (Bld) 0.200 % 0.0-0.9 [facility] Comment on above: IG% - Immature Granu locytes (promyelocytes, myelocytes and metamyelocytes) > 1% indicates that a LEFT SHIFT is Present. Laboratory - Chemistry and C hemistry - challengeOrdered By: Shaquille Ayala on 03-22-2025 Bilirubin Ql (U) Negative [facility] Glucose Ql (U) Negative [facility] Ketones Ql (U) Negative [facility] pH (U) 6 [pH] [facility] Specific gravity (U) [Rel density] 1.015 [facility] Urobilinogen (U) [Mass/Vol] Negative [facility] - Hematology and Cell countsOrdered By: Shaquille Ayala on 03-22-2025 Hemoglobin Ql (U) Negative [facility] - UrinalysisOrder ed By: Shaquille Ayala on 03-22-2025 Nitrite Ql (U) Negative [facility] Protein Ql (U) Negative [facility] MCV (mean corpuscular volume ) determinationOrdered By: Shaquille Ayala on 03-22-2025 MCV (RBC) [Entitic vol] 100.3 fL High 81-99 [facility] MR/Delmis 03-22-2025 /[facility] [address], [address] [place] [address] OFFICE VISIT Date of Service: 03/22/25 MR#: [id number] Acct: [id number] Name: ISABEL SAHNI Rep #: [id number] : 1955 Provider: Dr. Shaquille Lee i, MD Age/Sex: 69/F [place] [facility] [place]: Signed Intake Vital Signs 10/29/24 10:40 03/22/25 13:43 Height 5 ft 5 in 5 ft 5 in Weight: 208 lb 4 oz BMI 34.6 BP 131/70 H Pulse 61 Intake Visit Reasons: preop H P UC and sign consent/UDS results Chief Complaint: preoperative urine and consent Engraving Operator Required: No Accompanied by: Self Is patient in pain?: No Allergies aspirin Allergy (Verified 03/22/25 13:43) Itching codeine Allergy (Verified 03/22/25 13:43) swells up hydrocodone Allergy (Verified 03/22/25 13:43) diaphoretic, trouble breathing ibuprofen Allergy (Verified 03/22/25 13:43) Hives lisinopril Adverse Reaction (Intermediate, Verified 03/22/25 13:43) cough Medications ???Medication ???Instructions ???Recorded ???Confirmed ???Type losartan 100 mg tablet 100 mg PO DAILY 10/29/21 03/22/25 History hydrochlorothiazide 12.5 mg capsule cap 02/05/22 03/22/25 History atorvastatin 40 mg tablet 40 mg PO QHS 10/21/22 03/22/25 His tory metformin 500 mg tablet 500 mg PO BID 90 days #180 tabs 03/22/25 Rx pantoprazole 40 mg tablet,delayed 40 mg PO DAILY 1 month #30 tabs 0 11/18/23 03/22/25 Rx release ursodiol 300 mg capsule 300 mg PO BID liver fibrosis #180 01/08/24 03/22/25 Rx caps Have you fallen in the past year?: No PFS Medical History (Updated 03/22/25 @ 21:[address] Shaquille Ayala MD) Urge incontinence Nocturia Overactive bladder Vaginal atrophy IPMN (intraductal papillary mucinous neoplasm) NAFLD (nonalcoholic [...] Cancer Brain Brother Cancer unknown Social History number of children: 2 current occupational status: employed current occupation: [employer] Smoking Status: Former smoker alcohol intake: never substance use type: does not use what type of physical activity do you participate in: none additional social history: - Tony [facility] HPI Urology Chief Complaint: preoperative urine and consent Details: ISABEL SAHNI, is a 69 F. The patient is here for preoperative history and physical prior to anterior and posterior repair, possible bilateral sacrospinous ligament fixation with dermis, cystoscopy with bilateral ureteral catheterization. There are no new symptoms since the last visit. We reviewed the urodynamics study together. She does not have stress incontinence and had none with pessary in place. There is one questionable episode of stress incontinence without the pessary. She did not recall this. We discussed the options, she would prefer to avoid sling if possible. The procedure, recovery and expectations were explained. The risks, benefits and alternatives were discussed, including but not limited to, the risks of anesthesia, bleeding, infection, injury, pain and the need for further intervention. We have discussed the risk of exposure to and/or potential harm posed by the COVID-19 virus with having a surgery/procedure at this time. A joint decision was made at this time to proceed with the scheduled surgery/procedure as indicated on the consent form. ROS Const Constitutional: No chills, fatigue, fever(s), headache(s), night sweats, weakness, weight change, abnormal sleep pattern or change in appetite Eyes Eyes: No change in vision ENT ENT: No headache(s) or dry mouth Resp Respiratory: No cough, chest congestion, shortness of breath or wheezing Cardio Cardiology: Positive for other (No chest pain.); No shortness of breath, irregular heart rhythm or lightheadedness Gastro GI: Positive for other (No nausea.); No abdominal pain, change in bowel habits, constipation, diarrhea or vomiting Musc Musculoskeletal: No abnormal gait Skin Skin: No yellowing of the eye, lesions, itchy eyes, rash or skin ulcer Neuro Neurology: No abnormal gait, confusion, dizziness, weakness, headache(s) or memory loss Psych Psychiatric: No abnormal sleep pattern, No change in appetite, No confus (more content not included)... Normal [facility] Mean corpuscular hemoglobin (MCH) determinationOrdered By: Shaquille Ayala on 03-22-2025 MCH (RBC) [Entitic mass] 33.3 pg High 27.0-32.0 [facility] Mean corpuscular hemoglobin concentration (MCHC) determinationOrdered By: Shaquille Ayala on 03-22-2025 MCHC (RBC) [Mass/Vol] 33.2 g/dL 32-36 [facility] Mean platelet volume determi nationOrdered By: Shaquille Ayala on 03-22-2025 Platelet mean volume (Bld) [Entitic vol] 11.8 fL 6.2-12.0 [facility] Monocyte percentageOrdered B y: Shaquille Ayala on 03-22-2025 Monocytes/100 WBC (Bld) 10.2 % High 0-10 [facility] Neutrophil percentageOrdered By: Shaquille Ayala on 03-22-2025 Neutrophils/100 WBC (Bld) 48.5 % 47-70 [facility] No Panel InformationOrdered By: Shaquille Ayala on 03-22-2025 Urine Leukocytes Negatve [facility] Urine Non-Hemolyzed Blood Negative [facility] Nucleated red blood cell per centageOrdered By: Shaquille Ayala on 03-22-2025 Nucleated RBC/100 WBC (Bld) [Ratio] 0 % 0-5 [facility] Platelet countOrdered By: Juan David Ayala on 03-22-2025 Platelets (Bld) [#/Vol] 177 10*3/uL 150-450 [facility] Potassium measurement (mass/ volume)Ordered By: Shaquille Ayala on 03-22-2025 Potassium (Unsp spec) [Mass/Vol] 4.1 mmol/L 3.3-5.1 [facility] RBC Auto (Bld) [#/Vol]Ordere d By: Shaquille Ayala on 03-22-2025 RBC (Bld) [#/Vol] 3.96 10*6/uL Low 4.2-5.4 [facility] Serum creatinine measurement (mass/volume)Ordered By: Shaquille Ayala on 03-22-2025 Creatinine [Mass/Vol] 0.80 mg/dL 0.70-1.20 [facility] Serum glucose measurement (m ass/volume)Ordered By: Shaquille Ayala on 03-22-2025 Glucose [Mass/Vol] 68 mg/dL Low 70-99 [facility] Serum or plasma calcium diane urement (mass/volume)Ordered By: Shaquille Ayala on 03-22-2025 Calcium [Mass/Vol] 9.5 mg/dL 7.6-11.0 [facility] Serum or plasma urea nitroge n measurement (mass/volume)Ordered By: Shaquille Ayala on 03-22-2025 Urea nitrogen [Mass/Vol] 19 mg/dL 4-19 [facility] Sodium levelOrdered By: Shubham Ayala on 03-22-2025 Sodium [Moles/Vol] 143 mmol/L 133-145 [facility] White blood cell (WBC) count Ordered By: Shaquille Ayala on 03-22-2025 WBC (Bld) [#/Vol] 5.1 10*3/uL 4.4-11.0 [facility] Pelvic (Non )on 10-13 Pelvic (Non ) [facility] Imaging Services [address] [place], [place] [id number] Pelvic (Non ) MR#: [id number] Acct: [id number] Name: ISABEL SAHNI Rep #: [id number] : 1955 F 69 From: Riley Brown MD PCP: Dr. Paula Barrera DO Status: REG CLI Study: Pelvic (Non ) Date of Exam: 11/02/24 Exam# [id number] Ordering Dr: Ina Leon PROCEDURE: PELVIC (NON [...] IMPRESSION: NORMAL TRANSABDOMINAL PELVIC ULTRASOUND. Reading Location: [id number] CC: Dr. Paula Barrera DO; Dr. Ina Leon MD Carpenter Helper: Signed Normal [facility] Locomotive Mechanic Apprentice Office Visit Reporton 10-29-2024 Locomotive Mechanic Apprentice Office Visit Report [facility] [address] [place] [address], [address] [place] [address] OFFICE VISIT Date of Service: 10/29/24 MR#: [id number] Acct: [id number] Name: ISABEL SAHNI Rep #: [id number] : 1955 Provider: Dr. Ina cain MD Age/Sex: 69/F [place] [facility] [place]: Signed Intake Vital Signs 09/02/23 11:06 10/29/24 10:40 Height 5 ft 5 in 5 ft 5 in Weight: 208 lb 4 oz BMI 34.6 BP 176/88 H Intake Visit Reasons: PROLAPSE UTERUS-HYSTO CONSULT (cim) Engraving Operator Required: No Is patient in pain?: No [...] history: - Tony HPI PROLAPSE UTERUS-HYSTO CONSULT ([facility]) Details: ISABEL SAHNI is a 69 year [...] Date Name GA/Weeks Outcome Route Bth Weight Gen Labor Lgth Anesthesia Del Locatn Provider [...] comfortable, no (more content not included)... Normal [facility] Bone density reportOrdered B y: Ritesh Cartwright on 10-12-2024 Study report Skeletal system DXA [facility] Imaging Services [address] [place] [address] Dexa Bone Density Study MR#: [id number] Acct: [id number] Name: ISABEL SAHNI Rep #: [id number] : 1955 F 69 From: Adalberto Cartwright MD PCP: Dr. Paula Barrera DO Status: RE G CLI Study:Dexa Bone Density Study Date of Exam: 10/12/24 Exam# [id number] Ordering Dr: López Barrera DO PROCEDURE: DEXA BONE DENSITY STUDY 10/12/2024 REASON FOR EXAM: F, age 69 y/o . Postmenopausal. TECHNIQUE: DXA scan of the lumbar spine and left hip, using make and model. REFERENCE LINKS: ISCD Adult Positions COMPARISON: None FINDINGS: BMD and [...] Recommend follow-up as clinically warranted. Reading Location: [id number] CC: Dr. Paula Barrera DO ~ Carpenter Helper: Signed [facility] Dexa Bone Density Studyon Dexa Bone Density Study [facility] Imaging Services [address] [place] [address] Dexa Bone Density Study MR#: [id number] Acct: [id number] Name: ISABEL SAHNI Rep #: [id number] : 1955 F 69 From: Ritesh fry MD PCP: Dr. Paula Barrera DO Status: REG CLI Study: Dexa Bone Density Study Date of Exam: 10/12/24 Exam# [id number] Ordering Dr: Paula Barrera DO PROCEDURE: DEXA BONE DENSITY STUDY 10/12/2024 REASON FOR EXAM: F, age 69 y/o . Postmenopausal. TECHNIQUE: DXA scan of the lumbar spine and left hip, using make and model. REFERENCE LINKS: ISCD Adult Positions COMPARISON: None FINDINGS: BMD and [...] Recommend follow-up as clinically warranted. Reading Location: [id number] CC: Dr. Paula Barrera DO Carpenter Helper: Signed Normal [facility] Abdomen/Pelvis WITH Contrast on 09-27-2024 Abdomen/Pelvis WITH Contrast [facility] Imaging Services [address] [place] [address] Abdomen/Pelvis WITH Contrast MR#: [id number] Acct: [id number] Name: BORAISABEL M Rep #: [id number] : 1955 F 69 From: Ford Pate MD PCP: Dr. Paula Barrera, DO Status: REG CLI Study: Abdomen/Pelvis WITH Contrast Date of Exam: Exam# [id number] Ordering Dr: Migue Hutchinson MD PROCEDURE: ABDOMEN/PELVIS [...] 7. Additional description as above. Reading Location: [facility] CC: Dr. Paula Barrera DO; Dr. Migue Hutchinson MD Carpenter Helper: Signed Normal [facility] Echo Completeon 05-03-2024 Echo Complete [facility] Services [address] [place] [address] Echo Complete 05/03/24 1346 MR#: [id number] Acct: [id number] Name: ISABEL SAHNI Rep #: [id number] : 1955 68 From: David Lay MD Attending Dr: Dr. Paula Barrera DO Status: R EG CLI Ordering Dr: Paula Barrera DO Date: 05/03/24 Location: [facility] Sex: F C Admitted: Reason For [...] Paula Barrera Performed By: Julia Culp RDCS 10/22/24 0834 Date David Lay MD CC: Dr. Paula Barrera DO Date Dictated: 05/03/24 1346 Date Transcribed: 05/04/24833 Carpenter Helper: Signed Normal [facility] Carotid Duplex Ultrasoundon 04-20-2024 Carotid Duplex Ultrasound [facility] Cardiovascular Services [address] [place] [address] Carotid Duplex Ultrasound 04/20/24 1304 MR#: [id number] Acct: [id number] Name: ISABEL SAHNI Rep #: [id number] : 1955 68 From: Alonzo Baker MD Attending Dr: Dr. Paula Barrera DO Status: R EG CLI Ordering Dr: Paula Barrera DO Date: 04/20/24 Location: [facility] Sex: F C Admitted: Reason For Study: [...] the left vertebral artery. Procedure Carotid Duplex 25626. This is a Carotid Duplex examination using B-mode, color flow and specral Doppler. Exam performed in department. VL/Carotid Duplex Ultrasound Interpretation Summary Mild (<50%) stenosis right extracranial internal carotid. Mild (<50%) stenosis left extracranial internal carotid. Patent and antegrade vertebrals bilaterally. Ordering Physician: Paula Barrera Referring Physician: Paula Barrera Performed By: Tiffanie Ortega RVT 04/20/24 1602 Date Alonzo Baker MD CC: Dr. Paula Barrera, DO Date Dictated: 04/20/24 1304 Date Transcribed: 04/20/24 1602 Carpenter Helper: Signed Normal [facility] CBC W Auto Differential pane l (Bld)on 11-04-2023 Basophils (Bld) [#/Vol] 0.03 10*3/uL [facility] Basophils/100 WBC (Bld) 0.7 % [facility] Differential cell count method Nom (Bld) Auto [facility] Eosinophils (Bld) [#/Vol] 0.08 10*3/uL [facility] Eosinophils/100 WBC (Bld) 1.9 % [facility] Erythrocyte distribution width (RBC) [Ratio] 12.3 % 11.5 - 15.0 % [facility] Hematocrit (Bld) [Volume fraction] 43.3 % 36.0 - 46.0 % [facility] Hemoglobin (Bld) [Mass/Vol] 14.5 g/dL 11.5 - 15.5 g/dL [facility] Immature granulocytes (Bld) [#/Vol] [facility] Immature granulocytes/100 WBC (Bld) 0.2 % [facility] Lymphocytes (Bld) [#/Vol] 1.75 10*3/uL [facility] Lymphocytes/100 WBC (Bld) 42.6 % [facility] MCH (RBC) [Entitic mass] 32.8 pg 26.0 - 34.0 pg [facility] MCHC (RBC) [Mass/Vol] 33.5 g/dL 30.5 - 36.0 g/dL [facility] MCV (RBC) [Entitic vol] 98.0 fL 80.0 - 100.0 fL [facility] Monocytes (Bld) [#/Vol] 0.39 10*3/uL [facility] Monocytes/100 WBC (Bld) 9.5 % [facility] Neutrophils (Bld) [#/Vol] 1.85 10*3/uL [facility] Neutrophils/100 WBC (Bld) 45.1 % [facility] Nucleated RBC (Bld) [#/Vol] [facility] Nucleated RBC/100 WBC (Bld) [Ratio] 0.0 % /100 WBC [facility] Platelet mean volume (Bld) [Entitic vol] 12.2 fL 9.0 - 12.7 fL [facility] Platelets (Bld) [#/Vol] 192 10*3/uL [facility] RBC (Bld) [#/Vol] 4.42 10*6/uL 3.90 - 5.2 0 m/uL [facility] WBC (Bld) [#/Vol] 4.11 10*3/uL [facility] HbA1c (Bld)on 11-04-2023 Average glucose Estimated from glycated hemoglobin (Bld) [Mass/Vol] 114 mg/dL [facility] Comment on above: eAG: (Estimated aver age glucose) is a calculated value from HgbA1c and is hr representative of the average blood glucose level in the last 2-3 month period. HbA1c (Bld) [Mass fraction] 5.6 % 4.3 - 5.6 % [facility] Comment on above: [place] Diabetes As sociation guidelines indicate that patients with HgbA1c in the range 5.7-6.4% are at increased risk for development of diabetes, and intervention by lifestyle modification may be beneficial. HgbA1c greater or equal to 6.5% is considered diagnostic of diabetes. [facility] Urinalysis complete panel (U )on 11-04-2023 Bacteria LM.HPF (Urine sed) [#/Area] Negative Negative /HPF [facility] Bilirubin Ql (U) Negative Negative [facility] Clarity (Unsp spec) Clear Clear [facility] Color (U) Yellow Yellow [facility] Epithelial cells LM.HPF (Urine sed) [#/Area] Few /HPF [facility] Glucose Test strip (U) [Mass/Vol] Negative Negative [facility] Hemoglobin Ql (U) Negative Negative [facility] Hyaline casts (Urine sed) [#/Area] 0 /[LPF] 0 /LPF [facility] Ketones Ql (U) Negative Negative [facility] Leukocyte esterase Test strip Ql (U) Negative Negative [facility] Nitrite Ql (U) Negative Negative [facility] pH (U) 6.5 [pH] NINF - 8.5 [facility] Protein (U) [Mass/Vol] Negative Negative [facility] RBC LM.HPF (Urine sed) [#/Area] 0-2 /HPF 0-2 /HPF [facility] Specific gravity (U) [Rel density] 1.017 1.005 - 1.030 [facility] Urobilinogen Ql (U) 1.0 EU/dL 0.2-1.0 EU/dL [facility] WBC LM.HPF (Urine sed) [#/Area] 0-5 /HPF 0-5 /HPF [facility] This test was destiny jimenes and its performance characteristics determined by [facility]'s Kamlesh Jennifer [facility] Pathology and Laboratory Medicine [place] (RT-PLMI). It has not been cleared or approved by the FDA. RT-PLMS is regulated under CLIA as qualified to perform high-complexity testing. This test is used for clinical purposes. It should not be regarded as investigational or for research. [facility] XR Cervical spine AP and Lat eral and obliqueon 08-25-2023 [facility] Absolute lymphocyte countOrd ered By: Migue Hutchinson on 08-12-2023 Lymphocytes Auto (Unsp spec) [#/Vol] 1.78 10*3/uL 0.83-4.51 [facility] Alpha fetoprotein measuremen t as tumor markerOrdered By: Migue Hutchinson on 08-12-2023 AFP.tumor marker [Mass/Vol] 4.0 ng/mL 0.0-9.2 [facility] Comment on above: transOMIC El ectrochemiluminescence Immunoassay(ECLIA)Values obtained with different assay methods or kits cannotbe used interchangeably. Results cannot be interpreted asabsolute evidence of the presence or absence of malignantdisease.This test is not interpretable in females.Performed at: [facility] [facility] [id number] Director: Adams Pabon PhD, Phone: [phone] Automated lymphocyte count a s percentage of total leukocytesOrdered By: Migue Hutchinson on 08-12-2023 Lymphocytes/100 WBC Auto (Unsp spec) 37.1 % 19-41 [facility] Basophil percentageOrdered B y: Migue Hutchinson on 08-12-2023 Basophils/100 WBC (Bld) 0.8 % 0-1 [facility] Bilirubin [Mass/Vol] 0.70 mg/dL 0.20-1.00 [facility] Comment on above: For patients on eltr ombopag therapy, use of Dimension Zebulon TBIL is not recommended. Chloride [Moles/Vol] 110 mmol/L 98-107 [facility] Cholesterol [Mass/Vol] 193 mg/dL <200 [facility] Comment on above: <200 mg/dL Desirable 200-240 mg/dL Borderline >240 mg/dL High Risk Eosinophils/100 WBC (Bld) 2.1 % 0-5 [facility] Glucose [Mass/Vol] 100 mg/dL 74-106 [facility] Comment on above: Fasting Glucose resu lt from 100 to 125 mg/dL suggests IMPAIRED HOMEOSTASIS per A.D.A. criteria. Hemoglobin (Bld) [Mass/Vol] 13.4 g/dL 12.0-15.0 [facility] Monocytes/100 WBC (Bld) 9.2 % 0-10 [facility] Neutrophils (Bld) [#/Vol] 2.4 10*3/uL 2.0-7.7 [facility] Neutrophils/100 WBC (Bld) 50.4 % 47-70 [facility] Potassium [Moles/Vol] 3.4 mmol/L 3.5-5.1 [facility] Protein [Mass/Vol] 7.1 g/dL 6.4-8.2 [facility] Sodium [Moles/Vol] 143 mmol/L 136-145 [facility] Triglyceride [Mass/Vol] 179 mg/dL <199 [facility] Comment on above: The drugs N-Acetylcy steine and Metamizole may falsely depress this assay.Serum Triglycerides Reference Interval Normal <150 mg/dL Borderline high 150 - 199 mg/dL High 200 - 499 mg/dL Very High > or = 500 mg/dL WBC (Bld) [#/Vol] 4.8 10*3/uL 4.4-11.0 [facility] Determination of erythrocyte mean corpuscular volume (MCV)Ordered By: Migue Hutchinson on 08-12-2023 MCV (RBC) [Entitic vol] 99.3 fL 81-99 [facility] Erythrocyte distribution wid th ratioOrdered By: Migue Hutchinson on 08-12-2023 Erythrocyte distribution width (RBC) [Ratio] 12.2 % 11.6-14.6 [facility] Erythrocyte distribution wid th standard deviationOrdered By: Migue Hutchinson on 08-12-2023 Erythrocyte distribution width (RBC) [Entitic vol] 44.2 fL 35.1-43.9 [facility] Hematocrit Auto (Bld) [Volum e fraction]Ordered By: Migue Hutcihnson on 08-12-2023 Hematocrit (Bld) [Volume fraction] 41.6 % 37-47 [facility] High density lipoprotein (HD L) measurementOrdered By: Migue Hutchinson on 08-12-2023 Cholesterol in HDL (Body fld) [Mass/Vol] 54 mg/dL >40 [facility] Comment on above: The drugs N-Acetylcy steine and Metamizole may falsely depress this assay. Reference Range HDL <40 mg/dL Low HDL Cholesterol HDL >or= 60 mg/dL High HDL Cholesterol Immature granulocytes/100 WB C Auto (Bld)Ordered By: Migue Hutchinson on 08-12-2023 Immature granulocytes/100 WBC (Bld) 0.400 % 0.0-0.9 [facility] Comment on above: IG% - Immature Granu locytes (promyelocytes, myelocytes and metamyelocytes) > 1% indicates that a LEFT SHIFT is Present. International normalized rat io (INR) calculationOrdered By: Migue Hutchinson on 08-12-2023 INR Coag (PPP) [Relative time] 0.9 {INR} [facility] Laboratory - Chemistry and C hemistry - challengeOrdered By: Migue Hutchinson on 08-12-2023 Albumin/Globulin [Mass ratio] 0.9 {ratio} 0.9-2.4 [facility] ALP [Catalytic activity/Vol] 116 U/L 45-117 [facility] ALT [Catalytic activity/Vol] 17 U/L 13-56 [facility] CO2 [Moles/Vol] 29.0 mmol/L 21.0-32.0 [facility] Globulin (S) [Mass/Vol] 3.7 g/dL 2.2-4.2 [facility] Urea nitrogen/Creatinine [Mass ratio] 18.6 mg/mg 10-20 [facility] Laboratory - CoagulationOrde red By: Migue Hutchinson on 08-12-2023 PT Coag (PPP) [Time] 12.5 s 11.7-14.9 [facility] - Hematology and Cell countsOrdered By: Migue Hutchinson on 08-12-2023 MCH (RBC) [Entitic mass] 32.0 pg 27.0-32.0 [facility] MCHC (RBC) [Mass/Vol] 32.2 g/dL 32-36 [facility] Nucleated RBC/100 WBC (Bld) [Ratio] 0 % 0-5 [facility] Platelets (Bld) [#/Vol] 179 10*3/uL 150-450 [facility] Low density lipoprotein (LDL ) cholesterol measurementOrdered By: Migue Hutchinson on 08-12-2023 Cholesterol in LDL (Body fld) [Moles/Vol] 103 mg/dL 0-130 [facility] No Panel InformationOrdered By: Migue Hutchinson on 08-12-2023 Anti-Nuclear Antibody Screen Negative Negative [facility] Comment on above: Performed at: [facility]) [address] [id number] Director: Adams Pabon PhD, Phone: [phone] C-Reactive Protein Extended Range < 2.90 mg/L 0.0-3.0 [facility] Comment on above: C-Reactive Protein ( CRP) provides useful information for thediagnosis, therapy and monitoring of inflammatory processesand associated diseases. For the evaluation of Relative Riskfor Cardiovascular Disease, a High Sensitivity CRP (HSCRP)should be ordered. Centromere B Antibody Not Reportable [facility] Estimated GFR (MDRD) Amer 85 mL/min >60 [facility] Comment on above: GFR Calc Estimated GFR (MDRD) Non-Af Amer 70 mL/min >60 [facility] Comment on above: Non- GFR Calc JOCELYNN-1 Antibody Not Reportable [facility] FUNERAL DRIVER Antibody Not Reportable [facility] Platelet mean volume Jason-Ec ker (Bld) [Entitic vol]Ordered By: Migue Hutchinson on 08-12-2023 Platelet mean volume (Bld) [Entitic vol] 12.2 fL 6.2-12.0 [facility] RBC Auto (Bld) [#/Vol]Ordere d By: Migue Hutchinson on 08-12-2023 RBC (Bld) [#/Vol] 4.19 10*6/uL 4.2-5.4 [facility] SS-B IgG antibody assayOrder ed By: Migue Hutchinson on 08-12-2023 Sjogrens syndrome-B extractable nuclear IgG Qn (S) Not Reportable [facility] Serum DNA double strand anti body assay (units/volume)Ordered By: Migue Hutchinson on 08-12-2023 DNA double strand Ab Qn (S) Not Reportable [facility] Serum Scl-70 antibody assay (units/volume)Ordered By: Migue Hutchinson on 08-12-2023 SCL-70 extractable nuclear Ab Qn (S) Not Reportable [facility] Serum or plasma calcium diane urement (mass/volume)Ordered By: Migue Hutchinson on 08-12-2023 Calcium [Mass/Vol] 8.8 mg/dL 8.5-10.1 [facility] Serum or plasma creatinine m easurement (mass/volume)Ordered By: Migue Hutchinson on 08-12-2023 Creatinine [Mass/Vol] 0.86 mg/dL 0.55-1.02 [facility] Comment on above: The validity of the calculated GFR & GFRAA in patients over 70 years has not been determined. Clinical correlation is essential. Serum or plasma urea nitroge n measurement (mass/volume)Ordered By: Migue Hutchinson on 08-12-2023 Urea nitrogen [Mass/Vol] 16 mg/dL 7-18 [facility] Sahni antibody assayOrdered By: Migue Hutchinson on 08-12-2023 Bora extractable nuclear Ab (S) [Titer] Not Reportable [facility] Thin prep Papanicolaou smear with manual screeningOrdered By: Migue Hutchinson on 08-12-2023 Thin prep Papanicolaou smear with manual screening 3.4 g/dL 3.2-5.0 [facility] Thin prep Papanicolaou smear with manual screening 11 U/L 15-37 [facility] Thin prep Papanicolaou smear with manual screening 4 5-15 [facility] Very low density lipoprotein (VLDL) cholesterol measurementOrdered By: Migue Hutchinson on 08-12-2023 Cholesterol in VLDL Calc [Moles/Vol] 36 mg/dL 5-40 [facility] Whole blood hemoglobin A1c/t otal hemoglobin ratio (mass fraction)Ordered By: Migue Hutchinson on 08-12-2023 HbA1c (Bld) [Mass fraction] 5.7 % 3.8-5.6 [facility] Comment on above: Normal < 5.7 % Predi abetic 5.7 - 6.4 % Diabetic >or= 6.5 % Please note range changes. XR Shoulder - right 2 Viewso n 06-23-2023 IMPRESSION: NO ACUTE FINDINGS. Carpenter Helper: MARIA DOLORES Transcribe Date/Time: Jun 23 2023 6:25A Dictated by : EN MONTANO MD This examination was interpreted and the report reviewed and electronically signed by: EN MONTANO MD on Jun 23 2023 6:25AM EST DIVISION OF RADIOLOGY * * *Final Report* [...] cervical spine. - DIVISION OF RADIOLOGY Provider, [facility] - 06/23/2023 * * *Final Report* * [...] spine. - IMPRESSION IMPRESSION: NO ACUTE FINDINGS. Carpenter Helper: PSCB Transcribe Date/Time: Jun 23 2023 6:25A Dictated by : EN MONTANO MD This examination was interpreted and the report reviewed and electronically signed by: EN MONTANO MD on Jun 23 2023 6:25AM EST [facility] XR Shoulder - right 2 ViewsO rdered By: [facility] Provider on 06-23-2023 [facility] XR Shoulder - right 2 Viewso n 06-19-2023 Radiology Study observation (narrative) [facility] SRINATH SCREENINGon 12-10-2022 [facility] Absolute lymphocyte counton 06-25-2022 Lymphocytes Auto (Unsp spec) [#/Vol] 2.05 10*3/uL 0.83-4.51 [facility] Work Phone: Automated blood hematocrit ( percentage)on 06-25-2022 Hematocrit (Bld) [Volume fraction] 40.2 % 37-47 [facility] Basophil percentageon 2021 Basophils/100 WBC (Bld) 0.7 % 0-1 [facility] Bilirubin [Mass/Vol] 0.50 mg/dL 0.20-1.00 [facility] Work Phone: Comment on above: For patients on eltr ombopag therapy, use of Dimension Zebulon TBIL is not recommended. Chloride [Moles/Vol] 106 mmol/L 98-107 [facility] Eosinophils/100 WBC (Bld) 0.9 % 0-5 [facility] Glucose [Mass/Vol] 136 mg/dL 74-106 [facility] Comment on above: Fasting Glucose resu lt greater than or equal to 126 mg/dL suggests DIABETES MELLITUS per A.D.A. criteria. Neutrophils (Bld) [#/Vol] 3.0 10*3/uL 2.0-7.7 [facility] Work Phone: Neutrophils/100 WBC (Bld) 53.4 % 47-70 [facility] Potassium [Moles/Vol] 3.4 mmol/L 3.5-5.[address] [facility] Protein [Mass/Vol] 7.1 g/dL 6.4-8.2 [facility] Sodium [Moles/Vol] 140 mmol/L 136-145 [facility] WBC (Bld) [#/Vol] 5.6 10*3/uL 4.4-11.0 [facility] Blood erythrocytes count (nu mber/volume)on 06-25-2022 RBC (Bld) [#/Vol] 4.05 10*6/uL 4.2-5.4 [facility] Blood hemoglobin measurement (mass/volume)on 06-25-2022 Hemoglobin (Bld) [Mass/Vol] 13.2 g/dL 12.0-15.0 [facility] Blood lymphocytes/100 leukoc yteson 06-25-2022 Lymphocytes/100 WBC (Bld) 36.7 % 19-41 [facility] Blood monocytes/100 leukocyt eson 06-25-2022 Monocytes/100 WBC (Bld) 7.9 % 0-10 [facility] Blood platelet mean volumeon 06-25-2022 Platelet mean volume (Bld) [Entitic vol] 12.3 fL 6.2-12.0 [facility] Work Phone: CBC W/DIFF/PLT (EXTERNAL LAB SINA)on 06-25-2022 BASO ABSOLUTE [facility] EOS ABSOLUTE [facility] Immature Gran % [facility] IMMATURE GRANS ABSOLUTE [facility] Lymphocytes (Bld) [#/Vol] 2.05 10*3/uL 0.7 - 3.1 k/uL [facility] MCH 32.6 Pg 26.6 - 33 Pg [facility] MONOCYTES ABSOLUTE [facility] NEUTROPHILS ABSOLUTE 3.0 k/uL 1.4 - 7 .0 k/uL [facility] CMP (EXTERNAL)on 06-25-2022 Alk Phos Total 100 U/L 45 - 117 U/L [facility] AST [Catalytic activity/Vol] 17 U/L 8 - 37 U/L [facility] Bili Total 0.5 mg/dL 0.2 - 1 mg/dL [facility] CO2 [Moles/Vol] 29 mmol/L 21 - 32 MEQ/L [facility] GFR AFR AMER 68 mL/MIN [facility] GFR/1.73 sq M.predicted among non-blacks MDRD (S/P/Bld) [Vol rate/Area] 57 mL/min/{1.73_m2} [facility] Determination of erythrocyte mean corpuscular volume (MCV)on 06-25-2022 MCV (RBC) [Entitic vol] 99.3 fL 81-99 [facility] Laboratory - Chemistry and C hemistry - challengeon 06-25-2022 ALP [Catalytic activity/Vol] 100 U/L 45-117 [facility] Work Phone: ALT [Catalytic activity/Vol] 28 U/L 13-56 [facility] CO2 [Moles/Vol] 29.0 mmol/L 21.0-32.0 [facility] Work Phone: Globulin (S) [Mass/Vol] 3.6 g/dL 2.2-4.2 [facility] Work Phone: Urea nitrogen/Creatinine [Mass ratio] 13.5 mg/mg 10-20 [facility] Work Phone: Laboratory - Hematology and Cell countson 06-25-2022 Erythrocyte distribution width (RBC) [Entitic vol] 44.7 fL 35.1-43.9 [facility] Work Phone: Erythrocyte distribution width (RBC) [Ratio] 12.3 % 11.6-14.6 [facility] Immature granulocytes/100 WBC (Bld) 0.400 % 0.0-0.9 [facility] Work Phone: Comment on above: IG% - Immature Granu locytes (promyelocytes, myelocytes and metamyelocytes) > 1% indicates that a LEFT SHIFT is Present. MCH (RBC) [Entitic mass] 32.6 pg 27.0-32.0 [facility] Work Phone: Nucleated RBC/100 WBC (Bld) [Ratio] 0 % 0-5 [facility] Work Phone: MCHC [Mass/volume] by Automa larissa counton 06-25-2022 MCHC (RBC) [Mass/Vol] 32.8 g/dL 32-[address] [facility] No Panel Informationon 06-25 Estimated GFR (MDRD) Amer 68 mL/min >60 [facility] Work Phone: Comment on above: GFR Calc Estimated GFR (MDRD) Non-Af Amer 57 mL/min >60 [facility] Work Phone: Comment on above: Non- GFR Calc Platelets bldon 06-25-2022 Platelets (Bld) [#/Vol] 190 10*3/uL 150-450 [facility] Serum or plasma C reactive p rotein measurement (mass/volume)on 06-25-2022 CRP [Mass/Vol] mg/L 0.0-3.0 [facility] Work Phone: Comment on above: C-Reactive Protein ( CRP) provides useful information for thediagnosis, therapy and monitoring of inflammatory processesand associated diseases. For the evaluation of Relative Riskfor Cardiovascular Disease, a High Sensitivity CRP (HSCRP)should be ordered. Serum or plasma albumin diane urement (mass/volume)on 06-25-2022 Albumin [Mass/Vol] 3.5 g/dL 3.2-5.0 [facility] Serum or plasma albumin/glob ulin mass ratioon 06-25-2022 Albumin/Globulin [Mass ratio] 1.0 {ratio} 0.9-2.4 [facility] Work Phone: Serum or plasma calcium diane urement (mass/volume)on 06-25-2022 Calcium [Mass/Vol] 8.9 mg/dL 8.5-10.1 [facility] Serum or plasma creatinine m easurement (mass/volume)on 06-25-2022 Creatinine [Mass/Vol] 1.04 mg/dL 0.55-1.[address] [facility] Comment on above: The validity of the calculated GFR & GFRAA in patients over 70 years has not been determined. Clinical correlation is essential. Serum or plasma urea nitroge n measurement (mass/volume)on 06-25-2022 Urea nitrogen [Mass/Vol] 14 mg/dL 7-18 [facility] Thin prep Papanicolaou smear with manual screeningon 06-25-2022 Thin prep Papanicolaou smear with manual screening 17 U/L 15-37 [facility] Work Phone: Thin prep Papanicolaou smear with manual screening 5 5-15 [facility] Work Phone: XR KNEE GENERAL 4V AP BOTH/P A BOTH/LAT/MERC BILATERALon 05-20-2022 [facility] XR Knee - bilateral 4 Viewso n 05-20-2022 IMPRESSION: Mild bilateral patellofemoral compartment and moderate LEFT medial compartment osteoarthritis. Carpenter Helper: PSCB Transcribe Date/Time: May 20 2022 12:21P Dictated by : ALICIA CESAR DO This examination was interpreted and the report reviewed and electronically signed by: ALICIA CESAR DO on May 20 2022 12:25PM [facility] [[email or web address]] DIVISION OF RADIOLOGY * * *Final Report* [...] effusion. No fracture. DIVISION OF RADIOLOGY Provider, [facility] - 05/20/2022 * * *Final Report* * [...] compartment and moderate LEFT medial compartment osteoarthritis. Carpenter Helper: MARIA DOLORES Transcribe Date/Time: May 20 2022 12:21P Dictated by : ALICIA CESAR DO This examination was interpreted and the report reviewed and electronically signed by: ALICIA CESAR DO on May 20 2022 12:25PM EST [facility] Radiology Study observation (narrative) [facility] XR Knee - bilateral 4 ViewsO rdered By: [facility]cf Provider on 05-20-2022 [facility] XR LUMBAR GENERAL 3V AP/LAT/ L5-S1on 05-07-2022 [facility] XR Lumbar spine 3 Viewson IMPRESSION: Osteopenia, scoliotic curvature and degenerative change as detailed in report. Carpenter Helper: MARIA DOLORES Transcribe Date/Time: May 07 2022 1:12P Dictated by : JOSE ANTONIO BURKETT MD This examination was interpreted and the report reviewed and electronically signed by: JOSE ANTONIO BURKETT MD on May 07 2022 1:14PM EST DIVISION OF RADIOLOGY * * *Final Report* [...] relevant examinations available for comparison within the [facility]. RESULT: Counting reference: [...] unremarkable. DIVISION OF RADIOLOGY Provider, Jose David stewart [place] - 05/07/2022 * * *Final Report* * [...] relevant examinations available for comparison within the [facility]. RESULT: Counting reference: [...] and degenerative change as detailed in report. Carpenter Helper: PSCB Transcribe Date/Time: May 07 2022 1:12P Dictated by : JOSE ANTONIO BURKETT MD This examination was interpreted and the report reviewed and electronically signed by: JOSE ANTONIO BURKETT MD on May 07 2022 1:14PM EST [facility] Radiology Study observation (narrative) [facility] XR Lumbar spine 3 ViewsOrder ed By: Ccf Provider on 05-07-2022 [facility] COLONOSCOPY SCREENINGon 02-13 [facility] INR in Blood by Coagulation assayon 02-05-2022 INR Coag (Bld) [Relative time] 1.0 {INR} [facility] Work Phone: Laboratory - Coagulationon 0 02-05-2022 aPTT Coag (Bld) [Time] 25.5 s 24.1-36.2 [facility] Work Phone: PT Coag (PPP) [Time] 13.0 s 11.7-14.9 [facility] Work Phone: [phone] Platelets bldon 02-05-2022 Platelets (Bld) [#/Vol] 169 10*3/uL 150-450 [facility] Work Phone: [phone] Absolute lymphocyte counton 01-22-2022 Lymphocytes Auto (Unsp spec) [#/Vol] 1.97 10*3/uL 0.83-4.51 [facility] Work Phone: [phone] Atypical perinuclear antineu trophil cytoplasmic antibodies measurementon 01-22-2022 Neutrophil cytoplasmic Ab.perinuclear.atypic al IF (S) [Titer] <1:20 titer Neg:<1:20 [facility] Work Phone: [phone] Comment on above: The atypical pANCA p attern has been observed in asignificant percentage of patients with ulcerative colitis,primary sclerosing cholangitis and autoimmune hepatitis. Basophil percentageon 2021 Ammonia (P) [Moles/Vol] 19.0 umol/L 11-32 [facility] Work Phone: Basophils/100 WBC (Bld) 0.7 % 0-1 [facility] Work Phone: [phone] Bilirubin [Mass/Vol] 0.70 mg/dL 0.20-1.00 [facility] Work Phone: [phone] Comment on above: For patients on eltr ombopag therapy, use of Dimension Zebulon TBIL is not recommended. Chloride [Moles/Vol] 106 mmol/L 98-107 [facility] Work Phone: [phone] Eosinophils/100 WBC (Bld) 1.8 % 0-5 [facility] Work Phone: [phone] Glucose [Mass/Vol] 102 mg/dL 74-106 [facility] Work Phone: [phone] Comment on above: Fasting Glucose resu lt from 100 to 125 mg/dL suggests IMPAIRED HOMEOSTASIS per A.D.A. criteria. Neutrophils (Bld) [#/Vol] 2.0 10*3/uL 2.0-7.7 [facility] Work Phone: Neutrophils/100 WBC (Bld) 44.6 % 47-70 [facility] Work Phone: Potassium [Moles/Vol] 3.4 mmol/L 3.5-5.1 [facility] Work Phone: Protein [Mass/Vol] 7.0 g/dL 6.4-8.2 [facility] Work Phone: Sodium [Moles/Vol] 140 mmol/L 136-145 [facility] Work Phone: WBC (Bld) [#/Vol] 4.5 10*3/uL 4.4-11.0 [facility] Work Phone: Blood erythrocytes count (nu mber/volume)on 01-22-2022 RBC (Bld) [#/Vol] 4.00 10*6/uL 4.2-5.4 [facility] Work Phone: Blood hemoglobin measurement (mass/volume)on 01-22-2022 Hemoglobin (Bld) [Mass/Vol] 13.1 g/dL 12.0-15.0 [facility] Work Phone: Blood lymphocytes/100 leukoc yteson 01-22-2022 Lymphocytes/100 WBC (Bld) 44.2 % 19-41 [facility] Work Phone: Blood monocytes/100 leukocyt eson 01-22-2022 Monocytes/100 WBC (Bld) 8.5 % 0-10 [facility] Work Phone: Blood platelet mean volumeon 01-22-2022 Platelet mean volume (Bld) [Entitic vol] 11.9 fL 6.2-12.0 [facility] Work Phone: [phone] Determination of erythrocyte mean corpuscular volume (MCV)on 01-22-2022 MCV (RBC) [Entitic vol] 97.3 fL 81-99 [facility] Work Phone: [phone] HIV 1 and HIV-2 antibody ass ay with HIV-1 p24 antigen detectionon 01-22-2022 HIV 1+2 Ab+HIV1 p24 Ag IA Ql Non-Reactive Nonreactive [facility] Work Phone: Hematocrit Auto (Bld) [Volum e fraction]on 01-22-2022 Hematocrit (Bld) [Volume fraction] 38.9 % 37-47 [facility] Work Phone: INR in Blood by Coagulation assayon 01-22-2022 INR Coag (Bld) [Relative time] 1.1 {INR} [facility] Work Phone: [phone] Laboratory - Chemistry and C hemistry - challengeon 01-22-2022 ALP [Catalytic activity/Vol] 116 U/L 45-117 [facility] Work Phone: ALT [Catalytic activity/Vol] 23 U/L 13-56 [facility] Work Phone: CO2 [Moles/Vol] 28.0 mmol/L 21.0-32.0 [facility] Work Phone: [phone] Globulin (S) [Mass/Vol] 3.5 g/dL 2.2-4.2 [facility] Work Phone: Urea nitrogen/Creatinine [Mass ratio] 16.4 mg/mg 10-20 [facility] Work Phone: [phone] Laboratory - Coagulationon 0 01-22-2022 PT Coag (PPP) [Time] 13.4 s 11.7-14.9 [facility] Work Phone: Laboratory - Hematology and Cell countson 01-22-2022 Erythrocyte distribution width (RBC) [Entitic vol] 44.3 fL 35.1-43.9 [facility] Work Phone: Erythrocyte distribution width (RBC) [Ratio] 12.3 % 11.6-14.6 [facility] Work Phone: Immature granulocytes/100 WBC (Bld) 0.200 % 0.0-0.9 [facility] Work Phone: Comment on above: IG% - Immature Granu locytes (promyelocytes, myelocytes and metamyelocytes) > 1% indicates that a LEFT SHIFT is Present. MCH (RBC) [Entitic mass] 32.8 pg 27.0-32.0 [facility] Work Phone: Nucleated RBC/100 WBC (Bld) [Ratio] 0 % 0-5 [facility] Work Phone: MCHC Auto (RBC) [Mass/Vol]on 01-22-2022 MCHC (RBC) [Mass/Vol] 33.7 g/dL 32-36 [facility] Work Phone: No Panel Informationon 01-22 Ceruloplasmin 28.5 mg/dL 19.0-39.0 [facility] Work Phone: Estimated GFR (MDRD) Amer 93 mL/min >60 [facility] Work Phone: Comment on above: GFR Calc Estimated GFR (MDRD) Non-Af Amer 77 mL/min >60 [facility] Work Phone: Comment on above: Non- GFR Calc Haptoglobin 251 mg/dL 37-355 [facility] Work Phone: Comment on above: Performed at: [address] [id number] Director: Adams Pabon PhD, Phone: [phone] at: - [facility] [id number] Director: Arash Sinclair MD, Phone: [phone] Platelets bldon 01-22-2022 Platelets (Bld) [#/Vol] 163 10*3/uL 150-450 [facility] Work Phone: Serum classic neutrophil cyt oplasmic antibody assay (units/volume)on 01-22-2022 Neutrophil cytoplasmic Ab.classic Qn (S) <1:20 titer Neg:<1:20 [facility] Work Phone: Serum or plasma albumin diane urement (mass/volume)on 01-22-2022 Albumin [Mass/Vol] 3.5 g/dL 3.2-5.0 [facility] Work Phone: Serum or plasma albumin/glob ulin mass ratioon 01-22-2022 Albumin/Globulin [Mass ratio] 1.0 {ratio} 0.9-2.4 [facility] Work Phone: Serum or plasma [id number] protein tumor marker measurement (units/volume)on 01-22-2022 AFP.tumor marker Qn 4.1 ng/mL 0.0-9.2 [facility] Work Phone: Comment on above: [facility] El ectrochemiluminescence Immunoassay(ECLIA)Values obtained with different assay methods or kits cannotbe used interchangeably. Results cannot be interpreted asabsolute evidence of the presence or absence of malignantdisease.This test is not interpretable in females. Serum or plasma angiotensin converting enzyme measurement (enzymatic activity/volume)on 01-22-2022 Angiotensin converting enzyme [Catalytic activity/Vol] 38 U/L 14-82 [facility] Work Phone: Serum or plasma calcium diane urement (mass/volume)on 01-22-2022 Calcium [Mass/Vol] 8.9 mg/dL 8.5-10.1 [facility] Work Phone: Serum or plasma creatinine m easurement (mass/volume)on 01-22-2022 Creatinine [Mass/Vol] 0.80 mg/dL 0.55-1.02 [facility] Work Phone: Comment on above: The validity of the calculated GFR & GFRAA in patients over 70 years has not been determined. Clinical correlation is essential. Serum or plasma ferritin silvio surement (mass/volume)on 01-22-2022 Ferritin [Mass/Vol] 38 ng/mL 8-252 [facility] Work Phone: Serum or plasma urea nitroge n measurement (mass/volume)on 01-22-2022 Urea nitrogen [Mass/Vol] 13 mg/dL 7-18 [facility] Work Phone: Serum perinuclear neutrophil cytoplasmic antibody titer by immunofluorescenceon 01-22-2022 Neutrophil cytoplasmic Ab.perinuclear IF (S) [Titer] <1:20 titer Neg:<1:20 [facility] Work Phone: Comment on above: The presence of posi tive fluorescence exhibiting P-ANCA orC- ANCA patterns alone is not specific for the diagnosis ofWegener's Granulomatosis (WG) or microscopic polyangiitis.Decisions about treatment should not be based solely onANCA IFA results. The [employer] Consensusrecommends follow up testing of positive sera with both AL-3 and MPO-ANCA enzyme immunoassays. As many as 5% serumsamples are positive only by EIA. Ref. AM J Clin [id number];111:507-513. Thin prep Papanicolaou smear with manual screeningon 01-22-2022 Thin prep Papanicolaou smear with manual screening 17 U/L 15-37 [facility] Work Phone: Thin prep Papanicolaou smear with manual screening 6 5-15 [facility] Work Phone: Thin prep Papanicolaou smear with manual screening 158 U/L 84-246 [facility] Work Phone: Thin prep Papanicolaou smear with manual screening 116 ug/dL 80-158 [facility] Work Phone: Comment on above: Detection Limit = 5 Whole blood hemoglobin A1c/t otal hemoglobin ratio (mass fraction)on 01-22-2022 HbA1c (Bld) [Mass fraction] 5.8 % 3.8-5.6 [facility] Work Phone: Comment on above: Normal < 5.7 % Predi abetic 5.7 - 6.4 % Diabetic >or= 6.5 % Please note range changes. No Panel Informationon 12-24 [facility] Basophil percentageon 2021 Basophil percentage < 0.2 AI 0.0-0.9 [facility] Work Phone: Bilirubin [Mass/Vol] 0.60 mg/dL 0.20-1.00 [facility] Work Phone: Comment on above: For patients on eltr ombopag therapy, use of Dimension Zebulon TBIL is not recommended. Protein [Mass/Vol] 7.7 g/dL 6.4-8.2 [facility] Work Phone: Direct bilirubinon Bilirubin.direct [Mass/Vol] 0.11 mg/dL 0.00-0.30 [facility] Work Phone: Erythrocyte sedimentation ra jean claude 12-04-2021 ESR (Bld) [Velocity] 17 mm/h 0-30 [facility] Work Phone: Laboratory - Chemistry and C hemistry - challengeon 12-04-2021 ALP [Catalytic activity/Vol] 148 U/L 45-117 [facility] Work Phone: ALT [Catalytic activity/Vol] 29 U/L 13-56 [facility] Work Phone: Amylase [Catalytic activity/Vol] 34 U/L 5-55 [facility] Work Phone: Globulin (S) [Mass/Vol] 4.0 g/dL 2.2-4.2 [facility] Work Phone: No Panel Informationon 12-04 CA 19-9 Antigen < 2 U/mL 0-35 [facility] Work Phone: Comment on above: [facility] El ectrochemiluminescence Immunoassay(ECLIA)Values obtained with different assay methods or kits cannotbe used interchangeably. Results cannot be interpreted asabsolute evidence of the presence or absence of malignantdisease. CA 19-9 Antigen Serial Monitoring Not Reportable [facility] Work Phone: Centromere B Antibody <0.2 AI 0.0-0.9 [facility] Work Phone: Hepatitis A IgM Antibody Negative Negative [facility] Work Phone: Hepatitis B Core IgM Antibody Negative Negative [facility] Work Phone: Hepatitis C Antibody (EIA) <0.1 s/co ratio 0.0-0.9 [facility] Work Phone: Hepatitis C Antibody Comment Comment . [facility] Work Phone: Comment on above: NegativeNot infected with HCV, unless recent infection issuspected or other evidence exists to indicate HCVinfection. FUNERAL DRIVER Antibody <0.2 AI 0.0-0.9 [facility] Work Phone: Serum DNA double strand anti body assay (units/volume)on 12-04-2021 DNA double strand Ab Qn (S) [IU]/mL 0-9 [facility] Work Phone: Comment on above: Negative <5 Equivoca l 5 - 9 Positive >9 Serum Jocelynn-1 antibody assay (u nits/volume)on 12-04-2021 Jocelynn-1 extractable nuclear Ab Qn (S) <0.2 AI 0.0-0.9 [facility] Work Phone: Serum Scl-70 extractable nuc lear antibody assay (units/volume)on 12-04-2021 SCL-70 extractable nuclear Ab Qn (S) <0.2 AI 0.0-0.9 [facility] Work Phone: Serum Sahni extractable nucl ear antibody detectionon 12-04-2021 Sahni extractable nuclear Ab Ql (S) <0.2 AI 0.0-0.9 [facility] Work Phone: Serum mitochondria antibody detectionon 12-04-2021 Mitochondria Ab Ql (S) <20.0 Units 0.0-20.0 [facility] Work Phone: Comment on above: Negative 0.0 - 20.0 Equivocal 20.1 - 24.9 Positive >24.9Mitochondrial (M2) Antibodies are found in 90-96% ofpatients with primary biliary cirrhosis.Performed at: [address] [id number] Director: Adams Pabon PhD, Phone: [phone] Serum or plasma C reactive p rotein measurement (mass/volume)on 12-04-2021 CRP [Mass/Vol] 6.53 mg/L 0.0-3.0 [facility] Work Phone: Comment on above: C-Reactive Protein ( CRP) provides useful information for thediagnosis, therapy and monitoring of inflammatory processesand associated diseases. For the evaluation of Relative Riskfor Cardiovascular Disease, a High Sensitivity CRP (HSCRP)should be ordered. Serum or plasma actin IgG an tibody assay (units/volume)on 12-04-2021 Actin IgG Qn 5 Units 0-19 [facility] Work Phone: Comment on above: Negative 0 - 19 Weak positive 20 - 30 Moderate to strong positive >30 Actin Antibodies are found in 52-85% of patients with autoimmune hepatitis or chronic active hepatitis and in 22% of patients with primary biliary cirrhosis.Performed at: [id number] [id number] Director: Adams Pabon PhD, Phone: [phone] Serum or plasma albumin diane urement (mass/volume)on 12-04-2021 Albumin [Mass/Vol] 3.7 g/dL 3.2-5.0 [facility] Work Phone: Serum or plasma hepatitis B virus surface antigen detection by immunoassayon 12-04-2021 HBV surface Ag IA Ql Negative Negative [facility] Work Phone: Thin prep Papanicolaou smear with manual screeningon 12-04-2021 Thin prep Papanicolaou smear with manual screening 24 U/L 15-37 [facility] Work Phone: MRI PANC/CHRISTOS WO/W IVCONon Radiology Result ACTIONABLE Ab[facility] US ABD RT UPPER QUADRANTon 0 10-15-2021 [facility] Large Joint Arthro/Inj: R lott bacromial bursa [facility] Vital Signs Date Time Vital Sign Value Performing Clinician Facility 03-22-2025 13:43-0400 Body height 165.[address] Paula Barrera DO Work Phone: [facility] 03-22-2025 13:43-0400 Body mass index (BMI) [Ratio] 34.6 kg/m2 Dr. Paula Barrera DO Work Phone: [facility] 03-22-2025 13:43-0400 Body weight 94.[address] Paula Barrera DO Work Phone: [facility] 03-22-2025 13:43-0400 Diastolic blood pressure 70 mm[Hg] Dr. Paula Barrera DO Work Phone: [facility] 03-22-2025 13:43-0400 Heart rate 61 /min Dr. Paula Barrera DO Work Phone: [facility] 03-22-2025 13:43-0400 Systolic blood pressure 131 mm[Hg] Dr. Paula Barrera DO Work Phone: [facility] 10-29-2024 10:40-0400 Body height 165.[address] Paula Barrera DO Work Phone: [facility] 10-29-2024 10:40-0400 Body mass index (BMI) [Ratio] 34.6 kg/m2 Dr. Paula Barrera DO Work Phone: [facility] 10-29-2024 10:40-0400 Body weight 94.[address] Paula Barrera DO Work Phone: [facility] 10-29-2024 10:40-0400 Diastolic blood pressure 88 mm[Hg] Dr. Paula Barrera DO Work Phone: [facility] 10-29-2024 10:40-0400 Systolic blood pressure 176 mm[Hg] Dr. Paula Barrera DO Work Phone: [facility] 11-10-2023 10:27-0400 Body mass index (BMI) [Ratio] 31.63 kg/m2 Hollie Hoover APRN.REBRANDER Work Phone: [facility] 11-10-2023 10:27-0400 Body weight 94.35 kg Hollie Hoover APRN.REBRANDER Work Phone: [facility] 11-10-2023 10:27-0400 Diastolic blood pressure 78 mm[Hg] Hollie Hoover CONCRETE PUMP OPERATOR HELPER.REBRANDER Work Phone: [facility] 11-10-2023 10:27-0400 Systolic blood pressure 126 mm[Hg] Hollie Hoover CONCRETE PUMP OPERATOR HELPER.REBRANDER Work Phone: [facility] 11-04-2023 10:17-0400 Body height 172.7 cm [place] Arias MD Work Phone: [facility] 11-04-2023 10:17-0400 Body mass index (BMI) [Ratio] 31.93 kg/m2 Franklin Arias MD Work Phone: [facility] 11-04-2023 10:17-0400 Body weight 95.25 kg Franklin Arias MD Work Phone: [facility] 11-04-2023 10:17-0400 Diastolic blood pressure 84 mm[Hg] Franklin Arias MD Work Phone: [facility] 11-04-2023 10:17-0400 Heart rate 76 /min Franklin Arias MD Work Phone: [facility] 11-04-2023 10:17-0400 Respiratory rate 16 /min Franklin Arias MD Work Phone: [facility] 11-04-2023 10:17-0400 Systolic blood pressure 126 mm[Hg] Franklin Arias MD Work Phone: [facility] 09-02-2023 11:06-0500 Body height 165.1 cm DEVAUGHN CANTOR Work Phone: [facility] 09-02-2023 11:06-0500 Body mass index (BMI) [Ratio] 35.6 kg/m2 DEVAUGHN CANTOR Work Phone: [facility] 09-02-2023 11:06-0500 Body temperature 98.3 [degF] DEVAUGHN CANTOR Work Phone: [facility] 09-02-2023 11:06-0500 Body weight 97 kg DEVAUGHN CANTOR Work Phone: [facility] 09-02-2023 11:06-0500 Diastolic blood pressure 81 mm[Hg] PA Cecily Coelho PA Work Phone: [facility] 09-02-2023 11:06-0500 Heart rate 61 /min PA Cecily Coelho PA Work Phone: 0(586)974-918043 [place] [address] 09-02-2023 11:06-0500 Respiratory rate 14 /min PA Cecily Coelho PA Work Phone: 9(657)834-161442 [place] [address] 09-02-2023 11:06-0500 SaO2% (BldA) [Mass fraction] 100 % PA Cecily Coelho PA Work Phone: 4(180)262-699342 [place] [address] 09-02-2023 11:06-0500 Systolic blood pressure 187 mm[Hg] PA Cecily Coelho PA Work Phone: 1(607)883-501542 [place] [address] 08-12-2023 11:54-0500 Body height 157.48 cm PA Cecily Coelho PA Work Phone: 3(072)859-858342 [place] [address] 08-12-2023 11:54-0500 Body mass index (BMI) [Ratio] 39.6 kg/m2 PA Cecily Coelho PA Work Phone: 5(750)642-408942 [place] [address] 08-12-2023 11:54-0500 Body weight 98.42 kg PA Cecily Coelho PA Work Phone: 9(734)299-511043 [place] [address] 08-12-2023 11:54-0500 Diastolic blood pressure 85 mm[Hg] PA Cecily Coelho PA Work Phone: 4(415)004-567742 [place] [address] 08-12-2023 11:54-0500 Heart rate 70 /min PA Cecily Coelho PA Work Phone: 9(032)160-548743 [place] [address] 08-12-2023 11:54-0500 SaO2% (BldA) [Mass fraction] 98 % PA Cecily Coelho PA Work Phone: 4(898)661-810043 [place] [address] 08-12-2023 11:54-0500 Systolic blood pressure 144 mm[Hg] PA Cecily Coelho PA Work Phone: [facility] 03-21-2023 14:33-0400 Body temperature 97 [degF] Oly Man APRN.REBRANDER Work Phone: [facility] 03-21-2023 14:33-0400 Body weight 98.79 kg Oly Man APRN.REBRANDER Work Phone: [facility] 03-21-2023 14:33-0400 Diastolic blood pressure 87 mm[Hg] Oly Man APRN.REBRANDER Work Phone: [facility] 03-21-2023 14:33-0400 Heart rate 70 /min Oly Man APRN.REBRANDER Work Phone: [facility] 03-21-2023 14:33-0400 Respiratory rate 18 /min Oly Man APRN.REBRANDER Work Phone: [facility] 03-21-2023 14:33-0400 SaO2% (BldA) [Mass fraction] 96 % Oly Man APRN.REBRANDER Work Phone: [facility] 03-21-2023 14:33-0400 Systolic blood pressure 157 mm[Hg] Oly Man APRN.REBRANDER Work Phone: [facility] 11-05-2022 13:45-0400 Body temperature 97.81 [degF] Krislyn Aberegg PA Work Phone: [facility] 11-05-2022 13:45-0400 Body weight 100.25 kg Krislyn Aberegg PA Work Phone: [facility] 11-05-2022 13:45-0400 Diastolic blood pressure 70 mm[Hg] Krislyn Aberegg PA Work Phone: [facility] 11-05-2022 13:45-0400 Heart rate 78 /min Krislyn Aberegg PA Work Phone: [facility] 11-05-2022 13:45-0400 Respiratory rate 16 /min Krislyn Aberegg PA Work Phone: [facility] 11-05-2022 13:45-0400 SaO2% (BldA) [Mass fraction] 98 % Krchaselyyen Aberegg PA Work Phone: [facility] 11-05-2022 13:45-0400 Systolic blood pressure 132 mm[Hg] Krchaselyn Aberegg PA Work Phone: [facility] 10-08-2022 10:12-0400 Body height 165 cm Cecily Coelho PA-C Work Phone: [facility] 10-08-2022 10:12-0400 Body temperature 97.39 [degF] Cecily Coelho PA-C Work Phone: [facility] 10-08-2022 10:12-0400 Body weight 97.52 kg Cecily Coelho PA-C Work Phone: [facility] 10-08-2022 10:12-0400 Diastolic blood pressure 88 mm[Hg] Cecily Coelho PA-C Work Phone: [facility] 10-08-2022 10:12-0400 Heart rate 60 /min Cecily Coelho PA-C Work Phone: [facility] 10-08-2022 10:12-0400 Respiratory rate 18 /min Cecily Coelho PA-C Work Phone: [facility] 10-08-2022 10:12-0400 Systolic blood pressure 132 mm[Hg] Cecily Coelho PA-C Work Phone: [facility] 06-25-2022 11:22-0500 Body height 157.48 cm PA Cecily Coelho PA Work Phone: [facility] Work Phone: 06-25-2022 11:22-0500 Body mass index (BMI) [Ratio] 40.8 kg/m2 PA Cecily Coelho PA Work Phone: [facility] Work Phone: 06-25-2022 11:22-0500 Body weight 101.15 kg PA Cecily CANTOR Work Phone: [facility] Work Phone: 06-25-2022 11:22-0500 Diastolic blood pressure 88 mm[Hg] PA Cecily Coelho PA Work Phone: [facility] Work Phone: 06-25-2022 11:22-0500 Heart rate 87 /min PA Cecily Coelho PA Work Phone: [facility] Work Phone: 06-25-2022 11:22-0500 SaO2% (BldA) [Mass fraction] 98 % PA Cecily Coelho PA Work Phone: [facility] Work Phone: 06-25-2022 11:22-0500 Systolic blood pressure 147 mm[Hg] PA Cecily Coelho PA Work Phone: [facility] Work Phone: 05-20-2022 11:31-0500 Body temperature 97.81 [degF] Hal Desai MD Work Phone: [facility] 05-20-2022 11:31-0500 Body weight 97.98 kg Hal Desai MD Work Phone: [facility] 05-20-2022 11:31-0500 Diastolic blood pressure 76 mm[Hg] Hal Desai MD Work Phone: [facility] 05-20-2022 11:31-0500 Heart rate 70 /min Hal Desai MD Work Phone: [facility] 05-20-2022 11:31-0500 Respiratory rate 16 /min Hal Desai MD Work Phone: [facility] 05-20-2022 11:31-0500 SaO2% (BldA) [Mass fraction] 98 % Hal Desai MD Work Phone: [facility] 05-20-2022 11:31-0500 Systolic blood pressure 124 mm[Hg] Hal Desai MD Work Phone: [facility] 05-14-2022 09:30-0400 Body height 160 cm Florencia Moroni PA-C Work Phone: [facility] 05-14-2022 09:30-0400 Body temperature 97.11 [degF] Florencia Louann PA-C Work Phone: [facility] 05-14-2022 09:30-0400 Body weight 99.34 kg Florencia Louann PA-C Work Phone: [facility] 05-14-2022 09:30-0400 Diastolic blood pressure 84 mm[Hg] Florencia Moroni PA-C Work Phone: [facility] 05-14-2022 09:30-0400 Heart rate 72 /min Florencia Moroni PA-C Work Phone: [facility] 05-14-2022 09:30-0400 SaO2% (BldA) [Mass fraction] 96 % Florencia Moroni PA-C Work Phone: [facility] 05-14-2022 09:30-0400 Systolic blood pressure 152 mm[Hg] Florencia Louann PA-C Work Phone: [facility] 05-07-2022 10:28-0400 Body temperature 97.9 [degF] Cecily Coelho PA-C Work Phone: [facility] 05-07-2022 10:28-0400 Body weight 98.43 kg Cecily Coelho PA-C Work Phone: [facility] 05-07-2022 10:28-0400 Diastolic blood pressure 80 mm[Hg] Cecily Coelho PA-C Work Phone: [facility] 05-07-2022 10:28-0400 Heart rate 68 /min Cecily Coelho PA-C Work Phone: [facility] 05-07-2022 10:28-0400 Respiratory rate 18 /min Cecily Coelho PA-C Work Phone: [facility] 05-07-2022 10:28-0400 Systolic blood pressure 112 mm[Hg] Cecily Coelho PA-C Work Phone: [facility] 04-09-2022 09:23-0400 Diastolic blood pressure 84 mm[Hg] Franklin Arias MD Work Phone: [facility] 04-09-2022 09:23-0400 Systolic blood pressure 164 mm[Hg] Franklin Arias MD Work Phone: [facility] 04-09-2022 09:00-0400 Body weight 100.25 kg Franklin Arias MD Work Phone: [facility] 04-09-2022 09:00-0400 Heart rate 72 /min Franklin Arias MD Work Phone: [facility] 04-09-2022 09:00-0400 Respiratory rate 16 /min Franklin Arias MD Work Phone: [facility] 03-12-2022 12:18-0400 Diastolic blood pressure 72 mm[Hg] Riley Farrell MD Work Phone: [facility] 03-12-2022 12:18-0400 Heart rate 61 /min Riley Farrell MD Work Phone: [facility] 03-12-2022 12:18-0400 Respiratory rate 16 /min Riley Farrell MD Work Phone: [facility] 03-12-2022 12:18-0400 SaO2% (BldA) [Mass fraction] 94 % Riley Farrell MD Work Phone: [facility] 03-12-2022 12:18-0400 Systolic blood pressure 133 mm[Hg] Riley Farrell MD Work Phone: [facility] 03-12-2022 10:00-0400 Body temperature 97.39 [degF] Riley Farrell MD Work Phone: [facility] 02-05-2022 11:18-0400 Diastolic blood pressure 71 mm[Hg] DEVAUGHN CANTOR Work Phone: [facility] Work Phone: 02-05-2022 11:18-0400 Heart rate 58 /min PA Cecily Coelho PA Work Phone: [facility] Work Phone: 02-05-2022 11:18-0400 Respiratory rate 16 /min PA Cecily Coelho PA Work Phone: [facility] Work Phone: 02-05-2022 11:18-0400 SaO2% (BldA) [Mass fraction] 94 % PA Cecily Coelho PA Work Phone: [facility] Work Phone: 02-05-2022 11:18-0400 Systolic blood pressure 149 mm[Hg] PA Cecily Coelho PA Work Phone: [facility] Work Phone: 02-05-2022 09:15-0400 Inhaled oxygen flow rate 2 L/min PA Cecily Coelho PA Work Phone: [facility] Work Phone: 02-05-2022 08:30-0400 Body height 157.48 cm PA Cecily Coelho PA Work Phone: [facility] Work Phone: 02-05-2022 08:30-0400 Body mass index (BMI) [Ratio] 41.1 kg/m2 PA Cecily Coelho PA Work Phone: [facility] Work Phone: 02-05-2022 08:30-0400 Body temperature 97.8 [degF] PA Cecily Coelho PA Work Phone: [facility] Work Phone: 02-05-2022 08:30-0400 Body weight 102.05 kg PA Cecily Coelho PA Work Phone: [facility] Work Phone: 01-22-2022 13:22-0400 Body height 162.56 cm PA Cecily Coelho PA Work Phone: [facility] Work Phone: 01-22-2022 13:22-0400 Body mass index (BMI) [Ratio] 37.2 kg/m2 PA Cecily Coelho PA Work Phone: [facility] Work Phone: 01-22-2022 13:22-040 Body weight 98.42 kg PA Cecily Coelho PA Work Phone: [facility] Work Phone: 01-22-2022 13:22-0400 Diastolic blood pressure 91 mm[Hg] PA Cecily Coelho PA Work Phone: [facility] Work Phone: 01-22-2022 13:22-0400 Heart rate 68 /min PA Cecily Coelho PA Work Phone: [facility] Work Phone: 01-22-2022 13:22-0400 SaO2% (BldA) [Mass fraction] 95 % PA Cecily Coelho PA Work Phone: [facility] Work Phone: 01-22-2022 13:22-0400 Systolic blood pressure 160 mm[Hg] PA Cecily Coelho PA Work Phone: [facility] Work Phone: 01-08-2022 13:04-0400 Body temperature 98.29 [degF] Cecily Coelho PA-C Work Phone: [facility] 01-08-2022 13:04-0400 Body weight 99.34 kg Cecily Coelho PA-C Work Phone: [facility] 01-08-2022 13:04-0400 Diastolic blood pressure 64 mm[Hg] Cecily Coelho PA-C Work Phone: [facility] 01-08-2022 13:04-0400 Heart rate 68 /min Cecily Coelho PA-C Work Phone: [facility] 01-08-2022 13:04-0400 Respiratory rate 18 /min Cecily Coelho PA-C Work Phone: [facility] 01-08-2022 13:04-0400 Systolic blood pressure 110 mm[Hg] Cecily Coelho PA-C Work Phone: [facility] 12-25-2021 10:33-0400 Diastolic blood pressure 89 mm[Hg] Cecily Coelho PA-C Work Phone: [facility] 12-25-2021 10:33-0400 Heart rate 70 /min Cecily Coelho PA-C Work Phone: [facility] 12-25-2021 10:33-0400 Systolic blood pressure 163 mm[Hg] Cecily Coelho PA-C Work Phone: [facility] 12-25-2021 10:17-0400 Body temperature 98.01 [degF] Cecily Coelho PA-C Work Phone: [facility] 12-25-2021 10:17-0400 Body weight 98.88 kg Cecily Coelho PA-C Work Phone: [facility] 12-25-2021 10:17-0400 Respiratory rate 18 /min Cecily Coelho PA-C Work Phone: [facility] 12-25-2021 10:17-0400 SaO2% (BldA) [Mass fraction] 98 % Cecily Coelho PA-C Work Phone: [facility] 12-24-2021 11:00-0400 Diastolic blood pressure 94 mm[Hg] David Palmer MD Work Phone: [facility] 12-24-2021 11:00-0400 Heart rate 68 /min David Palmer MD Work Phone: [facility] 12-24-2021 11:00-0400 Respiratory rate 16 /min David Palmer MD Work Phone: [facility] 12-24-2021 11:00-0400 SaO2% (BldA) [Mass fraction] 92 % David Palmer MD Work Phone: [facility] 12-24-2021 11:00-0400 Systolic blood pressure 178 mm[Hg] David Palmer MD Work Phone: [facility] 12-24-2021 09:00-0400 Body temperature 97 [degF] David Palmer MD Work Phone: [facility] 12-24-2021 09:00-0400 Body weight 100.6 kg David Palmer MD Work Phone: [facility] 12-06-2021 08:15-0400 Body temperature 97.81 [degF] Hal Desai MD Work Phone: [facility] 12-06-2021 08:15-0400 Body weight 100.61 kg Hal Desai MD Work Phone: [facility] 12-06-2021 08:15-0400 Diastolic blood pressure 82 mm[Hg] Hal Desai MD Work Phone: [facility] 12-06-2021 08:15-0400 Heart rate 77 /min Hal Desai MD Work Phone: [facility] 12-06-2021 08:15-0400 Respiratory rate 16 /min Hal Desai MD Work Phone: [facility] 12-06-2021 08:15-0400 SaO2% (BldA) [Mass fraction] 97 % Hal Desai MD Work Phone: [facility] 12-06-2021 08:15-0400 Systolic blood pressure 144 mm[Hg] Hal Desai MD Work Phone: [facility] 12-04-2021 13:53-0400 Body height 162.56 cm DEVAUGHN CANTOR Work Phone: [facility] Work Phone: 12-04-2021 13:53-0400 Body mass index (BMI) [Ratio] 39.4 kg/m2 PA Cecily Coelho PA Work Phone: [facility] Work Phone: 12-04-2021 13:53-0400 Body weight 104.32 kg PA Cecily Coelho PA Work Phone: [facility] Work Phone: 12-04-2021 13:53-0400 Diastolic blood pressure 82 mm[Hg] PA Cecily Coelho PA Work Phone: [facility] Work Phone: 12-04-2021 13:53-0400 Heart rate 78 /min PA Cecily Coelho PA Work Phone: [facility] Work Phone: 12-04-2021 13:53-0400 SaO2% (BldA) [Mass fraction] 94 % PA Cecily Coelho PA Work Phone: [facility] Work Phone: 12-04-2021 13:53-0400 Systolic blood pressure 122 mm[Hg] PA Cecily Coelho PA Work Phone: [facility] Work Phone: 12-04-2021 13:53-0400 Body height 162.56 cm PA Cecily Coelho PA Work Phone: [facility] Work Phone: 12-04-2021 13:53-0400 Body mass index (BMI) [Ratio] 39.4 kg/m2 PA Cecily Coelho PA Work Phone: [facility] Work Phone: 12-04-2021 13:53-0400 Body weight 104.32 kg PA Cecily Coelho PA Work Phone: [facility] Work Phone: 12-04-2021 13:53-0400 Diastolic blood pressure 82 mm[Hg] PA Cecily Coelho PA Work Phone: [facility] Work Phone: 12-04-2021 13:53-0400 Heart rate 78 /min PA Cecily Coelho PA Work Phone: [facility] Work Phone: 12-04-2021 13:53-0400 SaO2% (BldA) [Mass fraction] 94 % PA Cecily Coelho PA Work Phone: [facility] Work Phone: 12-04-2021 13:53-0400 Systolic blood pressure 122 mm[Hg] PA Cecily Coelho PA Work Phone: [facility] Work Phone: 10-22-2021 14:27-0400 Diastolic blood pressure 81 mm[Hg] Mi Nurse Work Phone: [facility] 10-22-2021 14:27-0400 Heart rate 74 /min Mi Nurse Work Phone: [facility] 10-22-2021 14:27-0400 Systolic blood pressure 124 mm[Hg] Mi Nurse Work Phone: [facility] 10-01-2021 13:37-0400 Diastolic blood pressure 89 mm[Hg] Cecily Coelho PA-C Work Phone: [facility] 10-01-2021 13:37-0400 Systolic blood pressure 174 mm[Hg] Cecily Coelho PA-C Work Phone: [facility] 10-01-2021 12:22-0400 Body height 164.5 cm Cecily Coelho PA-C Work Phone: [facility] 10-01-2021 12:22-0400 Body temperature 98.01 [degF] Cecily Coelho PA-C Work Phone: [facility] 10-01-2021 12:22-0400 Body weight 99.79 kg Cecily Coelho PA-C Work Phone: [facility] 10-01-2021 12:22-0400 Heart rate 72 /min Cecily Coelho PA-C Work Phone: [facility] 10-01-2021 12:22-0400 Respiratory rate 18 /min Cecily CANTOR-Hussain Work Phone: [facility] Encounters Encounter Date Encounter Type Care Provider Facility Start: 04-15-2025 ambulatory Puala Holly Facilit y:[facility] Start: 04-14-2025 Encounter for other preprocedural examination Ina Leon [facility] Start: 04-07-2025 End: 04-07-2025 ambulatory Paula Barrera Facility:[facility] Start: 04-05-2025 End: 04-05-2025 ambulatory Paula Barrera Facility:[facility] Start: 03-22-2025 End: 03-22-[address] Shaquille Ayala MD -[facility] Work Phone: Start: 03-22-2025 End: 03-22-[address] Paula Barrera DO Work Phone: -[facility] Start: 03-22-2025 End: 03-22-2025 ambulatory Paula Barrera Facility:[facility] Start: 01-11-2025 Non-patient / Non-visit Dr. Shaquille small MD -[facility] Work Phone: Start: 12-02-2024 End: 12-30-2024 ambulatory Franklin Arias MD Work Phone: [address] [place] [address] Comment on above: Blood Pressure Check Start: 11-02-2024 End: 11-02-[address] Paula Barrera DO Work Phone: [facility] Work Phone: Start: 11-02-2024 End: 11-02-[address] Ina Leon MD -Ultrasound, [facility] Work Phone: Start: 11-02-2024 End: 11-02-2024 ambulatory Paula Barrera Facility:[facility] Start: 10-29-2024 End: 10-29-[address] Ina Leon MD -[facility] Work Phone: Start: 10-29-2024 End: 10-29-2024 ambulatory Paula Barrera Facility:[facility] Start: 10-12-2024 End: 10-12-[address] Paula Barrera DO Work Phone: [facility] Work Phone: Start: 10-12-2024 End: 10-12-[address] Paula Barrera DO -Outpatient Bone Densitometry Work Phone: Start: 10-12-2024 End: 10-12-2024 ambulatory Paula Barrera Facility:[facility] Start: 09-27-2024 End: 09-27-[address] Paula Barrera DO Work Phone: [facility] Work Phone: Start: 09-27-2024 End: 09-27-[address] Migue Hutchinson MD -Cat Scan, [facility] Work Phone: Start: 09-27-2024 End: 09-27-2024 ambulatory Paula Barrera Facility:[facility] Start: 05-03-2024 ambulatory David Alireza Facility:[facility] Start: 05-03-2024 End: 05-03-2024 ambulatory Paula Holly Facility:[facility] Start: 04-20-2024 ambulatory Paula Holly Facilit y:[facility] Start: 04-20-2024 End: 04-20-2024 ambulatory Paula Holly Facility:[facility] Start: 01-06-2024 Refill Franklin tavarez MD Work Phone: [facility] Comment on above: Refill Request Start: 12-16-2023 Documentation procedure Mammog clair Coordinator [facility] Department Start: 12-16-2023 Letter encounter Mammography Coordinator [facility] Start: 12-16-2023 Telephone encounter Franklin Arias MD Work Phone: [facility] Start: 12-15-2023 End: 12-15-2023 Subsequent hospital visit by physician Screen Mammo [facility] Comment on above: Encounter for screen ing mammogram for breast cancer [Z12.31] Start: 11-10-2023 Telephone encounter Hollie delvalle RENETTA.REBRANDER Work Phone: OB/Gynecology Comment on above: Patient Update Start: 11-10-2023 End: 11-10-2023 Patient encounter procedure Hollie Hoover RENETTA.REBRANDER Work Phone: OB/Gynecology Comment on above: Uterovaginal prolaps e (Primary Dx); Cystocele, midline Start: 11-06-2023 Telephone encounter Franklin Arias MD Work Phone: [facility] Comment on above: Results Start: 11-04-2023 End: 11-04-2023 Patient encounter procedure Franklin Arias MD Work Phone: [facility] Comment on above: Encounter for Medica re [...] department patient visit DEVAUGHN CANTOR Work Phone: [facility] Work Phone: Start: 09-02-2023 Patient encounter procedure DEVAUGHN CANTOR Work Phone: [facility] [facility], [facility] Work Phone: Start: 08-26-2023 Telephone encounter Shantal cameron PA-C Work Phone: Orthopaedics Comment on above: Results Start: 08-25-2023 End: 08-25-2023 Subsequent hospital visit by physician Xr [facility] Work Phone: Radiology Comment on above: Cervicalgia [M54.2] Start: 08-25-2023 End: 08-25-2023 Patient encounter procedure Shantal Galan PA-C Work Phone: Orthopaedics Comment on above: Bursitis of right sh oulder (Primary Dx); Acute pain of right shoulder; Cervicalgia Start: 08-18-2023 Refill Franklin tavarez MD Work Phone: [facility] Comment on above: Refill Request Start: 08-12-2023 End: 08-12-2023 ambulatory DEVAUGHN CANTOR Work Phone: [facility] Work Phone: Start: 08-12-2023 End: 08-12-2023 Patient encounter procedure DEVAUGHN CANTOR Work Phone: [facility] Work Phone: Start: 06-19-2023 End: 06-19-2023 Subsequent hospital visit by physician Xr [facility] Work Phone: Radiology Comment on above: Acute pain of right shoulder [M25.511] Start: 04-15-2023 Telephone encounter Sudha woodruff APRN.REBRANDER Work Phone: [facility] Comment on above: Results Start: 03-21-2023 End: 03-21-2023 Patient encounter procedure Oly Man APRN.REBRANDER Work Phone: [facility] Comment on above: Acute cough (Primary Dx) Start: 12-11-2022 Telephone encounter Cecily nogueira PA-C Work Phone: [facility] Comment on above: Results Start: 12-10-2022 Documentation procedure Mammog clair Coordinator [facility] Start: 12-10-2022 Letter encounter Mammography Coordinator [facility] Start: 12-10-2022 End: 12-10-2022 Subsequent hospital visit by physician Screen Mammo [facility] Comment on above: Encounter for screen ing mammogram for breast cancer [Z12.31] Start: 11-05-2022 End: 11-05-2022 Patient encounter procedure Joao CANTOR Work Phone: [facility] Comment on above: Bacterial sinusitis (Primary Dx) Start: 10-09-2022 Telephone encounter Cecily nogueira PA-C Work Phone: [facility] Comment on above: Results Start: 10-08-2022 End: 10-08-2022 Patient encounter procedure Cecily Coelho PA-C Work Phone: [facility] Comment on above: Well adult exam (Opal riya Dx); Essential hypertension; Mixed hyperlipidemia; Elevated fasting glucose; Low serum vitamin B12; Liver fibrosis; Carotid stenosis, bilateral; Obesity, Class II, BMI 35-39.9; Vitamin D deficiency; Encounter for screening mammogram for breast cancer; Encounter for immunization Start: 10-08-2022 End: 10-08-2022 Patient encounter status Cecily Coelho PA-C Work Phone: [facility] Start: 08-06-2022 Refill Franklin tavarez MD Work Phone: [facility] Comment on above: Refill Request Start: 07-09-2022 End: 07-09-2022 ambulatory PA Cecily CANTOR Work Phone: [facility] Work Phone: Start: 07-09-2022 End: 07-09-2022 Patient encounter procedure DEVAUGHN CANTOR Work Phone: [facility] Start: 06-27-2022 ambulatory Franklin tavarez MD Work Phone: [facility] Start: 06-25-2022 End: 06-25-2022 ambulatory PA Cecily CANTOR Work Phone: [facility] Work Phone: Start: 06-25-2022 End: 06-25-2022 Patient encounter procedure DEVAUGHN CANTOR Work Phone: [facility] Start: 05-20-2022 End: 05-20-2022 [facility]: [facility] Comment on above: Pain in both knees, unspecified chronicity [M25.561, M25.562] Start: 05-20-2022 End: 05-20-2022 Patient encounter procedure Hal Desai MD Work Phone: [facility] Comment on above: Pain in both knees, unspecified chronicity (Primary Dx) Start: 05-14-2022 End: 05-14-2022 Patient encounter procedure Florencia Lew PA-C Work Phone: General Surgery Comment on above: History of colonic p olyps (Primary Dx); Tubular adenoma Start: 05-07-2022 Telephone encounter Cecily nogueira PA-C Work Phone: [facility] Comment on above: Results Start: 05-07-2022 End: 05-07-2022 Subsequent hospital visit by physician Xr [facility] Work Phone: Radiology Comment on above: Chronic midline low back pain without sciatica [M54.50, G89.29] Start: 05-07-2022 End: 05-07-2022 Patient encounter procedure Cecily Coelho PA-C Work Phone: [facility] Comment on above: Essential hypertensi on (Primary Dx); Chronic midline low back pain without sciatica Start: 04-29-2022 End: 04-29-2022 Nursing evaluation of patient and report Mi Nurse Work Phone: [facility] Comment on above: Need for vaccination (Primary Dx); Need for influenza vaccination Start: 04-10-2022 Telephone encounter Franklin Arias MD Work Phone: [facility] Comment on above: Results Start: 04-09-2022 End: 04-09-2022 Patient encounter procedure Franklin Airas MD Work Phone: [facility] Comment on above: Essential hypertensi on (Primary Dx); Mixed hyperlipidemia; Elevated fasting glucose; LPRD (laryngopharyngeal reflux disease); Carotid stenosis, bilateral; Vitamin D deficiency; Obesity, Class II, BMI 35-39.9; Low serum vitamin B12; Leg cramps Start: 03-12-2022 End: 03-12-2022 Subsequent hospital visit by physician Riley Farrell MD Work Phone: Ambulatory Surgery Comment on above: Screening for colon cancer [Z12.11] Start: 02-05-2022 End: 02-05-2022 ambulatory PA Cecily CANTOR Work Phone: [facility] Work Phone: Start: 02-05-2022 End: 02-05-2022 Patient encounter procedure DEVAUGHN CANTOR Work Phone: [facility] Start: 01-30-2022 Telephone encounter Cecily nogueira PA-C Work Phone: [facility] [place] Comment on above: Outside Labs Results Start: 01-22-2022 End: 01-22-2022 Patient encounter procedure DEVAUGHN CANTOR Work Phone: [facility] Start: 01-15-2022 End: 01-15-2022 Patient encounter procedure DEVAUGHN CANTOR Work Phone: [facility] Start: 01-09-2022 Telephone encounter Cecily nogueira PA-C Work Phone: [facility] [place] Comment on above: Results Start: 01-08-2022 End: 01-08-2022 Patient encounter procedure Cecily Coelho PA-C Work Phone: [facility] [place] Comment on above: Essential hypertensi on (Primary Dx); Leg cramping; Vitamin D deficiency; Elevated vitamin B12 level; Screening for colon cancer; Mixed hyperlipidemia Start: 12-25-2021 Telephone encounter Cecily CANTOR-C Work Phone: [facility] [place] Comment on above: Results; Patient Upd ate Start: 12-25-2021 End: 12-25-2021 Patient encounter procedure Cecily Coelho PA-C Work Phone: [facility] Comment on above: Hypertension, essent ial (Primary Dx); Pancreatic cyst Start: 12-24-2021 Telephone encounter Sophia Man MA [facility] Comment on above: Patient Update; Appo intment Start: 12-24-2021 End: 12-24-2021 Subsequent hospital visit by physician David Palmer MD Work Phone: Ambulatory Surgery Comment on above: Screening for colon cancer [Z12.11] Start: 12-07-2021 Telephone encounter Oly Man APRN.REBRANDER Work Phone: [facility] Comment on above: Results Start: 12-06-2021 End: 12-06-2021 Patient encounter procedure Hal Desai MD Work Phone: [facility] Comment on above: URI, acute (Primary Dx) Start: 12-04-2021 End: 12-04-2021 Patient encounter procedure DEVAUGHN CANTOR Work Phone: [facility] Start: 12-04-2021 End: 12-04-2021 Patient encounter procedure DEVAUGHN CANTOR Work Phone: [facility] Start: 11-08-2021 Telephone encounter Cecily nogueira PA-C Work Phone: [facility] Comment on above: Results Start: 11-07-2021 End: 11-07-2021 Subsequent hospital visit by physician Mri Radio [facility] (I-Stat/1.5t) Work Phone: Radiology Comment on above: Abnormal results of liver function studies [R94.5] Start: 11-05-2021 Telephone encounter Florencia palacios PA-C Work Phone: General Surgery Comment on above: COLON ASC Start: 10-30-2021 Documentation procedure Mammog clair Coordinator [facility] Start: 10-30-2021 Letter encounter Mammography Coordinator [facility] Department Start: 10-30-2021 Telephone encounter Cecily COBBC Work Phone: [facility] [place] Comment on above: Results Start: 10-29-2021 End: 10-29-2021 Subsequent hospital visit by physician Screen Mammo [facility] Comment on above: Screening mammogram for breast cancer [Z12.31] Start: 10-23-2021 Telephone encounter Cecilychar nogueira PA-C Work Phone: [facility] [place] Comment on above: Orders Start: 10-22-2021 End: 10-22-2021 Nursing evaluation of patient and report Mi Nurse Work Phone: [facility] [place] Comment on above: Essential hypertensi on (Primary Dx) Start: 10-22-2021 Telephone encounter Franklin Arias MD Work Phone: [facility] Comment on above: Blood Pressure Check Start: 10-16-2021 Patient encounter procedure Geraldine Okeefe MD Work Phone: [facility] Provider Adult Start: 10-16-2021 Telephone encounter Cecilychar nogueira PA-C Work Phone: [facility] Comment on above: Results Start: 10-15-2021 End: 10-15-2021 Subsequent hospital visit by physician Us [facility] Work Phone: Radiology Comment on above: Elevated alkaline ph osphatase level [R74.8] Start: 10-10-2021 Telephone encounter Cecily nogueira PA-C Work Phone: [facility] [place] Comment on above: Results Start: 10-02-2021 Telephone encounter Cecilychar nogueira PA-C Work Phone: [facility] [place] Comment on above: Results Start: 10-01-2021 [...] encounter status Cecily Coelho PA-C Work Phone: [facility] [place] Start: 07-17-2020 End: 11-04-2023 Patient encounter status Franklin Arias MD Work Phone: [facility] Procedures Date Procedure Procedure Detail Performing Clinician Start: 11-02-[address] López Barrera DO Work Phone: Start: 10-12-2024 Dual energy X-ray absorptiometry Dr. Paula Barrera DO Work Phone: Start: 09-27-2024 Computed tomography of abdomen and pelvis with contrast Dr. Paula Barrera DO Work Phone: Start: 11-04-2023 Adult depression scr eening assessment [facility] [place] Work Phone: Start: 11-04-2023 Lipid 1996 panel - S rocky or Plasma Hollie Hoover APRN.REBRANDER Work Phone: Start: 09-02-2023 Ultrasound elastogra phy of liver PA Cecily CANTOR Work Phone: Start: 08-25-2023 Arthrocentesis aspir &/inj major jt/bursa w/o us Shantal Galan PA-C Work Phone: Start: 08-25-2023 Radex spine cervical 4 or 5 views Shantal Galan PA-C Work Phone: Start: 06-19-2023 Radex shoulder compl ete minimum 2 views Sudha Parsons APRN.CNP Work Phone: Start: 12-10-2022 End: 12-10-2022 Mammography Cecily Nixon Work Phone: Start: 10-08-2022 Lipid 1996 panel - S rocky or Plasma Sudha Parsons APRN.REBRANDER Work Phone: Start: 06-25-2022 CBC W/DIFF/PLT (EXTE [...] Cecily Coelho PA-C Work Phone: Start: 04-29-2022 P[employer]ER[employer] COVI D-19 BIVALENT BOOSTER VACCINE, AGE 12+ YR Cecily Coelho PA-C Work Phone: Start: 03-12-2022 Colonoscopy flx dx w /collj spec when pfrmd David Palmer MD Work Phone: Start: 03-12-2022 Colonoscopy Riley orlando MD Work Phone: Start: 02-05-2022 Biopsy/Inj or Needle Placement PA Cecily CANTOR Work Phone: Start: 01-22-2022 Hemoglobin A1c/Hemoglobin.total in Blood [facility] Provider Start: 01-15-2022 Ultrasonography of abdomen DEVAUGHN CANTOR Work Phone: Start: 01-15-2022 Ultrasound elastography PA Cecily CANTOR Work Phone: Start: 01-08-2022 Adult depression scr eening assessment Cecily Coelho PA-C Work Phone: Start: 12-24-2021 Colon ca scrn not hi rsk ind Florencia Lew PA-C Work Phone: Start: 12-24-2021 Colonoscopy David marlow MD Work Phone: Start: 11-07-2021 Mri abdomen w/o & w/ contrast material Cecily Coelho PA-C Work Phone: Start: [...] RSV Vaccine (1 - 1-dose 75+ series) [facility] Start: 10-02-2031 [facility] Start: 11-03-2028 Lipid panel Lipid Screening [facility] Start: 10-09-2027 Lipid 1996 panel - Serum or Plasma Lipid Screening [facility] Start: 10-09-2027 Lipid panel Lipid Screening [facility] Start: 10-09-2027 LIPID SCREEN LIPID SCREEN [facility] Start: 04-09-2027 LIPID SCREEN LIPID SCREEN [facility] Start: 11-03-2026 Diabetes Screening Diabetes Screening [facility] Start: 10-01-2026 LIPID SCREEN LIPID SCREEN [facility] Start: 04-14-2026 Diabetes Screening Diabetes Screening [facility] Start: 02-05-2026 LIPID SCREEN LIPID SCREEN [facility] Start: 10-24-2025 HPV TESTING HPV TESTING [facility] Start: 10-24-2025 PAP TESTING PAP TESTING [facility] Start: 10-08-2025 DIABETES SCREEN DIABETES SCREEN [facility] Start: 06-25-2025 DIABETES SCREEN DIABETES SCREEN [facility] Start: 04-09-2025 DIABETES SCREEN DIABETES SCREEN [facility] Start: 03-22-2025 Evaluation of diagnostic study results [facility] Start: 03-14-2025 Influenza vaccination Influenza Vaccine (Season Ended) [facility] Start: 03-12-2025 Colonoscopy COLONOSCOPY [facility] Start: 03-12-2025 COLORECTAL CANCER SCREENING COLORECTAL CANCER SCREENING [facility] Start: 01-22-2025 DIABETES SCREEN DIABETES SCREEN [facility] Start: 01-08-2025 DIABETES SCREEN DIABETES SCREEN [facility] Start: 12-24-2024 Colonoscopy COLONOSCOPY [facility] Start: 12-24-2024 COLORECTAL CANCER SCREENING COLORECTAL CANCER SCREENING [facility] Start: 12-14-2024 Screening for malignant neoplasm of breast Mammogram Screening [facility] Start: 11-09-2024 BP Controlled (<130/80) BP Controlled (<130/80) [facility] Start: 11-03-2024 Annual PCP Team Chronic Disease Visit Annual PCP Team Chronic Disease Visit [facility] Start: 11-03-2024 Anxiety Screening Anxiety Screening [facility] Start: 11-03-2024 Depression Screening Depression Screening [facility] Start: 11-03-2024 RSV Vaccine (1 - 1-dose 60+ series) RSV Vaccine (1 - 1-dose 60+ series) [facility] Comment on above: Postponed from 2017 (Insurance Cov erage) Start: 11-03-2024 Screening for osteoporosis Bone Density Screening [facility] Comment on above: Postponed from 2022 (Declined at t his time) Start: 10-08-2024 DIABETES SCREEN DIABETES SCREEN [facility] Start: 10-01-2024 DIABETES SCREEN DIABETES SCREEN [facility] Start: 07-14-2024 Advance Directive Discussion Advance Directive Discussion [facility] Start: 07-14-2024 Medicare Advantage Annual Wellness Visit Medicare [facility] Annual Wellness Visit [facility] Start: 06-19-2024 Annual PCP Team Chronic Disease Visit Annual PCP Team Chronic Disease Visit [facility] Start: 06-19-2024 BP Controlled (<130/80) BP Controlled (<130/80) [facility] Start: 05-04-2024 End: 05-04-2024 Patient encounter procedure 05/04/2024 1:40 PM EDT Office Visit Family [facility] [place] [address] [place] [id number] Cecily Coelho PA-C [address] [place] [id number] 6 month follow up [facility] Comment on above: 6 month follow up Start: 04-14-2024 Annual PCP Team Chronic Disease Visit Annual PCP Team Chronic Disease Visit [facility] Start: 03-14-2024 Covid-19 Vaccine ( season) Covid-19 Vaccine ( season) [facility] Start: 03-14-2024 Covid-19 Vaccine ( season) Covid-19 Vaccine () [facility] Start: 03-14-2024 Influenza vaccination Influenza Vaccine (#1) [place] [facility] Start: 02-11-2024 End: 02-11-2024 Patient encounter procedure 02/11/2024 8:00 AM EDT Office Visit [facility] [address] [place] [address] Mireya Huitron MD [address] [facility] [address] [place] [address] Uterovaginal prolapse [N81.4] [facility] Comment on above: Uterovaginal prolapse [N81.4] Start: 02-06-2024 DIABETES SCREEN DIABETES SCREEN [facility] Start: 12-15-2023 End: 12-15-2023 Patient encounter procedure 12/15/2023 11:10 AM EDT Appointment Mammogram [address] [place] [address] Encounter for screening mammogram for breast cancer [Z12.31] Mammogram Comment on above: Encounter for screening mammogram for br east cancer [Z12.31] Start: 12-11-2023 Mammography [facility] Start: 12-11-2023 Screening for malignant neoplasm of breast Mammogram Screening [facility] Start: 11-10-2023 End: 11-10-2023 Patient encounter procedure 11/10/2023 10:45 AM EDT Office Visit OB/Gynecology [address] [place] [address] Hollie Hoover APRN.REBRANDER [address] [place] [address] Patient noticing a bulge from her vagina. No pain. OB/Gynecology Comment on above: Patient noticing a bulge from her vagina . No pain. Start: 11-04-2023 End: 02-03-2024 25-hydroxyvitamin D3 [Mass/volume] in Serum or Plasma [facility] Comment on above: Expected: 11/04/2023, Expires: 4 Start: 11-04-2023 End: 02-03-2024 Cobalamin (Vitamin B12) [Mass/volume] in Serum or Plasma [facility] Comment on above: Expected: 11/04/2023, Expires: Start: 11-04-2023 End: 02-03-2024 Comprehensive metabolic 2000 panel - Serum or Plasma [facility] Comment on above: Expected: 11/04/2023, Expires: Start: 11-04-2023 End: 02-03-2024 LIPID PANEL, NONFASTING [facility] Comment on above: Expected: 11/04/2023, Expires: Start: 11-04-2023 End: 02-03-2024 Magnesium [Mass/volume] in Serum or Plasma [facility] Comment on above: Expected: 11/04/2023, Expires: Start: 10-09-2023 ANNUAL PCP TEAM CHRONIC DISEASE VISIT ANNUAL PCP TEAM CHRONIC DISEASE VISIT [facility] Start: 09-02-2023 X-ray of both feet Foot min 3 Views [facility] Start: 08-15-2023 Covid-19 Vaccine (6 - Pfizer series) Covid-19 Vaccine (6 - Pfizer series) [facility] Start: 08-15-2023 Covid-19 Vaccine () Covid-19 Vaccine () [facility] Start: 07-14-2023 Advance Directive Discussion Advance Directive Discussion [facility] Start: 07-14-2023 Behavioral Health Screening Behavioral Health Screening [facility] Start: 07-14-2023 Depression Assessment Depression Assessment [facility] Start: 06-03-2023 ANNUAL PCP TEAM CHRONIC DISEASE VISIT ANNUAL PCP TEAM CHRONIC DISEASE VISIT [facility] Start: 06-03-2023 BP CONTROLLED (<130/80) BP CONTROLLED (<130/80) [facility] Start: 05-20-2023 BP CONTROLLED (<130/80) BP CONTROLLED (<130/80) [facility] Start: 05-07-2023 ANNUAL PCP TEAM CHRONIC DISEASE VISIT ANNUAL PCP TEAM CHRONIC DISEASE VISIT [facility] Start: 04-22-2023 End: 06-22-2023 Basic metabolic 2000 panel - Serum or Plasma BASIC METABOLIC PNL Lab Routine Hypokalemia Expected: 04/22/2023, Expires: 06/22/2023 [facility] Work Phone: Comment on above: Expected: 04/22/2023, Expires: 3 Start: 04-09-2023 ANNUAL PCP TEAM CHRONIC DISEASE VISIT ANNUAL PCP TEAM CHRONIC DISEASE VISIT [facility] Start: 03-14-2023 Influenza vaccination INFLUENZA (#1) [facility] Start: 03-12-2023 Colonoscopy COLONOSCOPY [facility] Start: 03-12-2023 COLORECTAL CANCER SCREENING COLORECTAL CANCER SCREENING [facility] Start: 03-12-2023 Screening for malignant neoplasm of colon [facility] Start: 01-08-2023 Adult depression screening assessment DEPRESSION SCREENING [facility] Start: 01-08-2023 ANNUAL PCP TEAM CHRONIC DISEASE VISIT ANNUAL PCP TEAM CHRONIC DISEASE VISIT [facility] Start: 01-08-2023 BP CONTROLLED (<130/80) BP CONTROLLED (<130/80) [facility] Start: 12-25-2022 ANNUAL PCP TEAM CHRONIC DISEASE VISIT ANNUAL PCP TEAM CHRONIC DISEASE VISIT [facility] Start: 12-03-2022 SHINGRIX VACCINE (2 of 2) SHINGRIX VACCINE (2 of 2) [facility] Start: 10-29-2022 Mammography MAMMOGRAM [facility] Start: 10-08-2022 End: 12-08-2022 25-hydroxyvitamin D3 [Mass/volume] in Serum or Plasma [facility] Work Phone: Comment on above: Expected: 10/08/2022, Expires: 3 Start: 10-08-2022 End: 12-08-2022 Cobalamin (Vitamin B12) [Mass/volume] in Serum or Plasma [facility] Work Phone: Comment on above: Expected: 10/08/2022, Expires: 3 Start: 10-08-2022 End: 05-28-2023 Comprehensive metabolic 2000 panel - Serum or Plasma [facility] Work Phone: Comment on above: Expected: 10/08/2022, Expires: 3 Start: 10-08-2022 End: 12-08-2022 Hemoglobin A1c in Blood [facility] Work Phone: Comment on above: Expected: 10/08/2022, Expires: 3 Start: 10-08-2022 End: 12-08-2022 LIPID PANEL, NONFASTING [facility] Work Phone: Comment on above: Expected: 10/08/2022, Expires: 3 Start: 10-01-2022 ANNUAL PCP TEAM CHRONIC DISEASE VISIT ANNUAL PCP TEAM CHRONIC DISEASE VISIT [facility] Start: 10-01-2022 HEPATITIS C SCREENING HEPATITIS C SCREENING [facility] Comment on above: Postponed from 1975 (Declined at t his time) Start: 10-01-2022 HIV SCREENING HIV SCREENING [facility] Comment on above: Postponed from 1975 (Declined at t his time) Start: 10-01-2022 PNEUMOCOCCAL: 65+ (2 - PPSV23 if available, else PCV20) PNEUMOCOCCAL: 65+ (2 - PPSV23 if available, else PCV20) [facility] Start: 08-30-2022 COVID-19 VACCINE (6 - Pfizer series) COVID-19 VACCINE (6 - Pfizer series) [facility] Start: 2022 ADVANCE DIRECTIVE DISCUSSION ADVANCE DIRECTIVE DISCUSSION [facility] Start: 2022 BONE DENSITY BONE DENSITY [facility] Start: 2022 Bone Density Screening Bone Density Screening [facility] Start: 2022 Screening for osteoporosis Bone Density Screening [facility] Start: 07-14-2022 DEPRESSION ASSESSMENT DEPRESSION ASSESSMENT [facility] Start: 07-09-2022 Ultrasonography of abdomen Abdomen Limited [facility] Work Phone: Start: 07-09-2022 Ultrasound elastography [facility] Work Phone: Start: 07-09-2022 US Abdomen limited [facility] Work Phone: Start: 04-26-2022 End: 06-26-2022 25-hydroxyvitamin D3 [Mass/volume] in Serum or Plasma VITAMIN D 25 HYDROXY Lab Routine Vitamin D deficiency Expected: 04/26/2022, Expires: 06/26/2022 [facility] Work Phone: Comment on above: Expected: 04/26/2022, Expires: 2 Start: 04-26-2022 End: 06-26-2022 Comprehensive metabolic 2000 panel - Serum or Plasma COMP METABOLIC PANEL Lab Routine Essential hypertension Mixed hyperlipidemia Expected: 04/26/2022, Expires: 06/26/2022 [facility] Work Phone: Comment on above: Expected: 04/26/2022, Expires: 2 Start: 04-26-2022 End: 06-26-2022 Hemoglobin A1c in Blood HGB A1C Lab Routine Elevated fasting glucose Expected: 04/26/2022, Expires: 06/26/2022 [facility] Work Phone: Comment on above: Expected: 04/26/2022, Expires: 2 Start: 04-26-2022 End: 06-26-2022 LIPID PANEL, NONFASTING LIPID PANEL, NONFASTING Lab Routine Essential hypertension Mixed hyperlipidemia Expected: 04/26/2022, Expires: 06/26/2022 [facility] Work Phone: Comment on above: Expected: 04/26/2022, Expires: 2 Start: 04-09-2022 End: 06-09-2022 Magnesium [Mass/volume] in Serum or Plasma [facility] Work Phone: Comment on above: Expected: 04/09/2022, Expires: 2 Start: 03-14-2022 Influenza vaccination [facility] Start: 02-05-2022 Biopsy liver needle percutaneous NEEDLE BIOPSY OF LIVER [facility] Work Phone: Start: 02-05-2022 Catheterization of vein [facility] Work Phone: Start: 02-05-2022 Oxygen therapy [facility] Work Phone: Start: 02-05-2022 Patient discharge [facility] Work Phone: Start: 02-05-2022 Vital signs measurements [facility] Work Phone: Start: 02-05-2022 Following clinical pathway protocol [facility] Work Phone: Start: 01-23-2022 End: 03-25-2022 POTASSIUM BLD POTASSIUM BLD Lab Routine Hypokalemia Expected: 01/23/2022, Expires: 03/25/2022 [facility] Work Phone: Comment on above: Expected: 01/23/2022, Expires: 2 Start: 01-10-2022 Influenza vaccination INFLUENZA (#1) [facility] Comment on above: Postponed from 03/14/2021 (Declined at t his time) Start: 01-08-2022 End: 03-10-2022 25-hydroxyvitamin D3 [Mass/volume] in Serum or Plasma [facility] Work Phone: Comment on above: Expected: 01/08/2022, Expires: 2 Start: 01-08-2022 End: 03-10-2022 Cobalamin (Vitamin B12) [Mass/volume] in Serum or Plasma [facility] Work Phone: Comment on above: Expected: 01/08/2022, Expires: 2 Start: 01-08-2022 End: 03-10-2022 Comprehensive metabolic 2000 panel - Serum or Plasma [facility] Work Phone: Comment on above: Expected: 01/08/2022, Expires: 2 Start: 01-08-2022 End: 03-10-2022 Magnesium [Mass/volume] in Serum or Plasma [facility] Work Phone: Comment on above: Expected: 01/08/2022, Expires: 2 Start: 12-12-2021 COVID-19 VACCINE (5 - Booster for Pfizer series) COVID-19 VACCINE (5 - Booster for Pfizer series) [facility] Start: 12-06-2021 End: 12-20-2021 SARS-CoV-2 (COVID-19) RNA [Presence] in Respiratory specimen by KEL with probe detection 2019 CORONAVIRUS Microbiology Routine URI, acute Expected: 12/06/2021, Expires: 12/20/2021 [facility] Work Phone: Comment on above: Expected: 12/06/2021, Expires: 2 Start: 10-16-2021 End: 12-16-2021 Mitochondria Ab [Presence] in Serum by Immunofluorescence MITOCHONDRIAL AB PNL SCRN Lab Routine Elevated alkaline phosphatase level Abnormal results of liver function studies Elevated serum GGT level Expected: 10/16/2021, Expires: 12/16/2021 [facility] Work Phone: Comment on above: Expected: 10/16/2021, Expires: 2 Start: 10-02-2021 End: 12-02-2021 ALK PHOS ISOENZYM BL ALK PHOS ISOENZYM BL Lab Routine Elevated alkaline phosphatase level Expected: 10/02/2021, Expires: 12/02/2021 [facility] Work Phone: Comment on above: Expected: 10/02/2021, Expires: 2 Start: 10-02-2021 End: 12-02-2021 Gamma glutamyl transferase [Enzymatic activity/volume] in Serum or Plasma GGT BLD Lab Routine Elevated alkaline phosphatase level Expected: 10/02/2021, Expires: 12/02/2021 [facility] Work Phone: Comment on above: Expected: 10/02/2021, Expires: 2 Start: 10-01-2021 End: 12-01-2021 CBC W Auto Differential panel - Blood [facility] Work Phone: Comment on above: Expected: 10/01/2021, Expires: 2 Start: 10-01-2021 End: 12-01-2021 Comprehensive metabolic 2000 panel - Serum or Plasma [facility] Work Phone: Comment on above: Expected: 10/01/2021, Expires: 2 Start: 10-01-2021 End: 12-01-2021 Hemoglobin A1c/Hemoglobin.total in Blood [facility] Work Phone: Comment on above: Expected: 10/01/2021, Expires: 2 Start: 10-01-2021 End: 12-01-2021 LIPID PANEL, NONFASTING [facility] Work Phone: Comment on above: Expected: 10/01/2021, Expires: 2 Start: 10-01-2021 End: 12-01-2021 Magnesium [Mass/volume] in Serum or Plasma [facility] Work Phone: Comment on above: Expected: 10/01/2021, Expires: 2 Start: 10-01-2021 End: 12-01-2021 Urinalysis complete panel - Urine [facility] Work Phone: Comment on above: Expected: 10/01/2021, Expires: 2 Start: 10-01-2021 End: 12-01-2021 VITAMIN B12 BLOOD [facility] Work Phone: Comment on above: Expected: 10/01/2021, Expires: 2 Start: 10-01-2021 End: 12-01-2021 VITAMIN D 25 HYDROXY [facility] Work Phone: Comment on above: Expected: 10/01/2021, Expires: 2 Start: 07-14-2021 DEPRESSION ASSESSMENT DEPRESSION ASSESSMENT [facility] Start: 04-11-2021 Mammography MAMMOGRAM [facility] Start: 01-28-2020 Colonoscopy COLONOSCOPY [facility] Start: 01-28-2020 COLORECTAL CANCER SCREENING COLORECTAL CANCER SCREENING [facility] Start: 2017 RSV Vaccine (1 - 1-dose 60+ series) RSV Vaccine (1 - 1-dose 60+ series) [facility] Start: 01-31-2017 Adult depression screening assessment DEPRESSION SCREENING [facility] Start: 09-01-2014 FECAL OCCULT BLOOD FECAL OCCULT BLOOD [facility] Start: 09-01-2014 Screening for malignant neoplasm of colon Fecal Occult Blood [facility] Start: 2007 SHINGRIX VACCINE (1 of 2) SHINGRIX VACCINE (1 of 2) [facility] Start: 2002 COLOGUARD (FIT-DNA) COLOGUARD (FIT-DNA) [facility] Start: [address] COLONOGRAPHY [facility] Start: 2002 Screening for malignant neoplasm of colon [facility] Start: 2002 SIGMOIDOSCOPY SIGMOIDOSCOPY [facility] Start: 1976 ONE PNEUMOVAX PRIOR TO AGE 65 ONE PNEUMOVAX PRIOR TO AGE 65 [facility] Start: 1975 BP CONTROLLED (<130/80) BP CONTROLLED (<130/80) [facility] in 25-hydroxyvitamin D3 [Mass/volume] in Serum or Plasma VITAMIN D 25 HYDROXY Lab Routine Vitamin D deficiency 04/09/2022 9:58 AM [facility] Work Phone: Comprehensive metabo lic 2000 panel - Serum or Plasma COMP METABOLIC PANEL Lab Routine Essential hypertension Mixed hyperlipidemia 04/09/2022 9:58 AM [facility] Work Phone: Hemoglobin A1c in Blood HGB A1C Lab Routine Elevated fasting glucose 04/09/2022 9:58 AM [facility] Work Phone: LIPID PANEL, NONFASTING LIPID PA SACHA, NONFASTING Lab Routine Essential hypertension Mixed hyperlipidemia 04/09/2022 9:58 AM [facility] Work Phone: Liver stiffness by US.transient elastography [facility] End: 11-07-2023 SRINATH SCREENING SRINATH SCREENING Radiology Routine Encounter for screening mammogram for breast cancer 1 Occurrences starting 10/08/2022 until 11/07/2023 [facility] Work Phone: Comment on above: 1 Occurrences starting 10/08/2022 until 11/07/2023 End: 10-31-2022 SRINATH SCREENING W JENNIFER SRINATH SCREENING W JENNIFER Radiology Routine Screening mammogram for breast cancer 1 Occurrences starting 10/01/2021 until 10/31/2022 [facility] Work Phone: Comment on above: 1 Occurrences starting 10/01/2021 until 10/31/2022 SRINATH SCREENING W JENNIFER SRINATH SCREENI NG W JENNIFER Radiology Routine Screening mammogram for breast cancer 10/29/2021 2:05 PM EDT [facility] Work Phone: End: 12-02-2024 MG Breast Screening SRINATH SCREENING Radiology Routine Encounter for screening mammogram for breast cancer 1 Occurrences starting 11/04/2023 until 12/02/2024 [facility] Work Phone: Comment on above: 1 Occurrences starting 11/04/2023 until 12/02/2024 MG Breast Screening SRINATH SCREENIN G Radiology Routine Encounter for screening mammogram for breast cancer 12/15/2023 10:47 AM EDT [facility] Work Phone: MR Biliary ducts and Pancreatic duct WO contrast [facility] Work Phone: End: 11-15-2022 Mri abdomen w/o & w/contrast material [facility] Work Phone: Comment on above: 1 Occurrences starting 10/16/2021 until 11/15/2022 Patient Education RAD RN Biopsy Liver Dc RAD RN Procedural Sedation [facility] Work Phone: Patient referral [facility] Work Phone: SURGICAL PATHOLOGY [facility] Work Phone: Comment on above: Release Upon Ordering for 1 Occurrences starting 03/12/2022, 1 completed Ultrasound elastography [facility] Work Phone: US Abdomen limited [facility] Work Phone: End: 11-09-2022 Us abdominal real time w/image limited US ABD RT UPPER QUADRANT Radiology Routine Elevated alkaline phosphatase level 1 Occurrences starting 10/10/2021 until 11/09/2022 [facility] Work Phone: Comment on above: 1 Occurrences starting 10/10/2021 until 11/09/2022 End: 04-09-2023 US CAROTID ARTERIES [facility] US CAROTID ARTERIES [facility] Vascular Lab Routine Carotid stenosis, bilateral 1 Occurrences starting 04/09/2022 until 04/09/2023 [facility] Work Phone: Comment on above: 1 Occurrences starting 04/09/2022 until 04/09/2023 [facility] Immunizations Immunization Date Immunization Notes Care Provider Napoleon lakealvino 04-14-2023 COVID-19 vaccine, ag e 12+ yr, 2022- season (PFIZER-BIONTECH) Sudha Parsons APRN.REBRANDER Work Phone: [facility] 04-14-2023 zoster vaccine recombinant Sudha Parsons APRN.REBRANDER Work Phone: [facility] 03-21-2023 influenza, high dose seasonal, preservative-free Oly Man APRN.REBRANDER Work Phone: [facility] 03-21-2023 influenza virus vacc ine, unspecified formulation Xr [place] Work Phone: [facility] 10-08-2022 pneumococcal polysaccharide vaccine, 23 valent Cecily Coelho PA-C Work Phone: [facility] 10-08-2022 zoster vaccine recombinant Cecily Coelho PA-C Work Phone: [facility] 04-29-2022 COVID-19 booster vaccine, age 12+ yr, bivalent (PFIZER-BIONTECH) [place] Nurse Work Phone: [facility] Work Phone: 04-29-2022 influenza, injectabl e, quadrivalent, contains preservative [place] Nurse Work Phone: [facility] Work Phone: 10-01-2021 pneumococcal conjuga te vaccine, 13 valent Cecily Coelho PA-C Work Phone: [facility] 10-01-2021 tetanus toxoid, redu patricia diphtheria toxoid, and acellular pertussis vaccine, adsorbed Cecily COBBC Work Phone: [facility] 10-18-2020 COVID-19 vaccine, ag e 12+ yr (PFIZER-BIONTECH - [facility]) Cecily CANTOR-C Work Phone: [facility] Work Phone: 09-27-2020 COVID-19 vaccine, ag e 12+ yr (PFIZER-BIONTECH - PURPLE TOP) Cecily CANTOR-C Work Phone: [facility] Work Phone: 06-13-2020 influenza, seasonal, injectable Cecily CANTOR-C Work Phone: [facility] 08-12-2016 influenza, injectabl e, quadrivalent, contains preservative Cecily CANTOR-C Work Phone: [facility] 07-06-2015 influenza, injectabl e, quadrivalent, contains preservative Cecily CANTOR-C Work Phone: [facility] 05-23-2014 influenza, seasonal, injectable Cecily CANTOR-C Work Phone: [facility] 12-14-2007 tetanus and diphther ia toxoids, adsorbed, preservative free, for adult use (2 Lf of tetanus toxoid and 2 Lf of diphtheria toxoid) Cecily CANTOR-C Work Phone: [facility] Payers Date Payer Category Payer Private Health Insurance [id number] 2024 Self-pay [id number] 2023 Medicare (Managed Care) [id number] 2022 Medicare MEDICARE MEDICAR E A AND B [id number] 2022[facility] [phone] [address] [address] [place] [address] Medicare [id number] 2019 Medicaid [facility] MEDICAID [id number] 2019-[facility] [phone] [address] [place] [address] Medicaid [id number] 2019 Medicaid [id number] 2013 Private Health Insurance [id number] Medicare [id number] Unknown [id number] Unknown [id number] Unknown [id number] Unknown [id number] 462 Unknown [id number]. 462 Unknown [id number]. 462 Unknown [id number]. 462 Unknown [id number]. 462 Unknown [id number]. 462 Unknown [id number]. 462 Unknown [id number]. 462 Unknown [id number]. 462 Unknown [id number] [id number]. 462 Unknown [id number] [id number]. 462 Unknown [id number] [id number]. 462 Unknown [id number] [id number]. 462 Unknown [id number]. 462 Social History Date Type Detail Facility Start: 07-17-2020 End: 10-29-2024 Tobacco smoking status NYIS Ex-smoker [facility] Start: 07-14-1987 End: 07-14-2012 History of tobacco use Cigarette Smoker [facility] Start: 07-17-2020 End: 10-08-2022 Tobacco use and exposure Smokeless tobacco non-user [facility] Start: 10-01-2021 End: 11-10-2023 Alcohol intake Current non-drinker of alcohol (finding) [facility] Start: 1955 Sex Assigned At Not on file [facility] Start: 09-21-2021 End: 06-03-2022 Exposure to SARS-CoV-2 (event) Not sure [facility] Start: 12-04-2021 End: 08-12-2023 Tobacco smoking status [facility] Unknown if ever smoked [facility] Start: 11-27-2020 Non-smoker [facility] Start: 1955 Sex Assigned At Female [facility] Start: 07-14-1987 End: 07-14-2012 History of tobacco use Current smoker [facility] Start: 03-21-2023 End: 04-14-2023 History of Social function [facility] Work Phone: Start: 03-21-2023 End: 04-14-2023 Tobacco use panel [facility] Work Phone: Adult Depression Screening Assessment 0 [facility] Work Phone: Start: 10-02-2024 End: 11-05-2024 Sex Female (finding) [facility] Functional Status Date Assessment Result Facility 06-06-2014 Are you deaf, or do you have serious difficulty hearing No 06/06/2014 4:50 PM EST Mila Faizan Kanika No [facility] 06-06-2014 Are you blind, or do you have serious difficulty seeing, even when wearing glasses No 06/06/2014 4:50 PM EST Mila Faizan Kanika No [facility] 06-06-2014 Do you have serious difficulty walking or climbing stairs No 06/06/2014 4:50 PM EST Mila Faizan Kanika No [facility] 06-06-2014 Do you have difficul ty dressing or bathing No 06/06/2014 4:50 PM EST Mila Faizan Kanika No [facility] 06-06-2014 Because of a physica l, mental, or emotional condition, do you have difficulty doing errands alone such as visiting a physician's office or shopping No 06/06/2014 4:50 PM EST Mila Faizan Kanika No [facility] Mental Status Date Assessment Result Facility 02-05-2022 Cognitive function Voice/Name [facility] Work Phone: 06-06-2014 Because of a physica l, mental, or emotional condition, do you have serious difficulty concentrating, remembering, or making decisions No 06/06/2014 4:50 PM EST Milayrn Gloria Kanika No [facility] Clinical Notes 04-01-2014 to 03-22-2025 Note Date & Type Note Facility 03-22-2025 Evaluation note Diagnosis Onset Date Resolution Incomplete uterovaginal prolapse acute March 22, 2 025 1:16pm Nocturia acute March 22, 2025 1:16pm Overactive bladder acute 2024 1:16pm Urge incontinence acute er 2024 1:16pm Vaginal atrophy acute March 22, 2025 1:16pm [facility] Work Phone: 1(197) 724-216507-08-2025 NotePatient Outreach (FAMPWS) ISABEL SAHNI ([id number]) 1955 F Date Time Provider Department 01/18/25 [...] Date Reviewed: 11/10/2023 Reviewed by: Hollie Hoover APRN.REBRANDER - Fully Assessed Visit Diagnosis:Encounter for screening mammogram for breast cancer [Z12.31] Order(s):[facility] SCREENING W JENNIFER [[id number]] Order #: [id number] FUTURE Prescriptions as of 02/18/2025 - diclofenac [...] Medication management [Z79.899] 11/04/2023 Encounter Status:Closed by EPIC, PRODUSER on 02/18/25[facility] 12-02-2024 NoteHNO ID: [id number] Author: ?, ?, ? Service: ? Author [...] they see another provider, please update their chart.[facility]05-22-2025 History of Present illness Narrative* Jane Scahfer - 12/02/2024 12:47 PM EDT Hypertension Outreach Isabelkatherine Sahni has been identified for clinical review due to having hypertension without an appointment in the past year. PSS Team - Please contact the patient with the following script: Franklin Arias MD has identified that you are in need of ongoing care of your hypertension and have not had a blood pressure visitwith us in the last year. We would like to assist you in making an appointment to ensure that we control your blood pressure and keep you as healthy as possible. Outreach Outcome/Action: Unable to reach patient: Left message Note - if they see another provider, please update their chart. documented in this encounter[facility]05-[facility]-2025 NotePatient Outreach (4CQ) ISABEL SAHNI ([id number]) 1955 F Date Time Provider Department 12/02/24 [...] Date Reviewed: 11/10/2023 Reviewed by: Hollie Hoover APRN.REBRANDER - Fully Assessed Reason for Visit: Blood [...] Medication management [Z79.899] 11/04/2023 Encounter Status:Closed by PARKER GARCIA JANE on 12/30/24[facility]04-22-2025 Radiology Diagnostic study note [facility] Imaging Services [address] [place] [address] Pelvic (Non ) MR#: [id number] Acct: [id number] Name: ISABEL SAHNI Rep #: [id number] : 1955 F 69 From: Delta Brown MD PCP: Dr. Paula Barrera DO Status: RE G CLI Study:Pelvic (Non ) Date of Exam: 11/02/24 Exam# [id number] Ordering Dr: Ina Chapin MD PROCEDURE: PELVIC [...] IMPRESSION: NORMAL TRANSABDOMINAL PELVIC ULTRASOUND. Reading Location: [id number] CC: Dr. Paula Barrera DO; Dr. Ina Leon MD ~ Carpenter Helper: Signed [facility]04-18-2025 Evaluation note* Diagnosis Onset Date Resolution Status Admit Date Incomplete uterovaginal prolapse acu te October 29, 2024 10:27am [facility] Work Phone: 1(767) 543-240303-17-2025 Radiology Diagnostic study note [facility] Imaging Services [address] [place] [id number] Abdomen/Pelvis WITH Contrast MR#: [id number] Acct: [id number] Name: ISABEL SAHNI Rep #: [id number] : 1955 F 69 From: Renu Pate MD PCP: Dr. Paula Barrera, DO Status: RE G CLI Study:Abdomen/Pelvis WITH Contrast Date of Ex am: 09/27/24 Exam# [id number] Ordering Dr: Inna Hutchinson MD PROCEDURE: ABDOMEN/PELVIS [...] 7. Additional description as above. Reading Location: [id number] CC: Dr. Paula Barrera DO; Dr. Migue Hutchinson MD ~ Carpenter Helper: Signed [facility]06-25-2024 Telephone encounter Note* Telephone Encounter - Luz Elena Bernstein RN - 01/06/2024 2:41 PM EDT Called and spoke with Yane villareal at [employer] in [place]. She states she just spoke with ptand [...] been discontinued. And pt is to call [employer] to get her refills when it is time. Pt verbalizes understanding. [facility]06-25-2024 Miscellaneous Notes* Telephone Encounter - Luz Elena Bernstein RN - 01/06/2024 2:41 PM EDT Called and spoke with Yane villareal at [employer] in [place]. She states she just spoke with ptand [...] been discontinued. And pt is to call [employer] to get her refills when it is time. Pt verbalizes understanding. * Telephone Encounter - Mariya Tate - [...] empty stomach, 1/2 hr before meal. Mariya Garcia January 06, 2024 2:25 PM * Telephone [...] 06, 2024 2:08 PM documented in this encounterProm[facility]ica [facility] Hospital06-25-2024 Telephone encounter Note * Telephone Encounter - [...] empty stomach, 1/2 hr before meal. Mariya Garcia January 06, 2024 2:25 PM [facility]06-25-2024 Telephone encounter Note* Telephone Encounter - Hope [...] Hope Mario January 06, 2024 2:08 PM [facility]06-04-2024 Telephone encounter Note* Telephone Encounter - Patricia Rasheed LPN - 12/16/2023 2:00 PM EDT Pt notified of mgm results & voiced understanding. Patricia Rasheed LPN [facility]06-04-2024 Miscellaneous Notes* Telephone Encounter - Patricia Rasheed LPN - 12/16/2023 2:00 PM EDT Pt notified of mgm results & voiced understanding. Patricia Rasheed LPN * Telephone Encounter - Franklin Arias MD - 12/16/2023 12:52 PM EDT Let patient know mammogram was ok documented in this encounterProm[facility]06-04-2024 Telephone encounter Note * Telephone Encounter - Franklin Arias MD - 12/16/2023 12:52 PM EDT Let patient know mammogram was ok [facility]06-04-2024 Note* Letter - Coordinator, Mammography - 12/16/2023 10:16 AM EDT December 16, 2023 PID: [id number] Isabel Sahni [address] [place] [address] Dear Ms. Sahni, We are pleased to [...] report will be kept on file at [facility] as part of your permanent medical record and are available for your continuing care. Thank you for allowing us to help in meeting your health care needs. Sincerely, Dr. Mustafa Interpreting Radiologist [facility] (Normal over 40) [facility]06-04-2024 Miscellaneous Notes* Letter - Coordinator, Mammography - 12/16/2023 10:16 AM EDT December 16, 2023 PID: [id number] Isabel Sahni [address] [place] [address] Dear Ms. Sahni, We are pleased to [...] report will be kept on file at [facility] as part of your permanent medical record and are available for your continuing care. Thank you for allowing us to help in meeting your health care needs. Sincerely, Dr. Mustafa Interpreting Radiologist [facility] (Normal over 40) documented in this encounterPromedica Memorial Hospital06-03-2024 History of Present illness Narrative* Raisa Hackett [...] PATIENT PRESENTS WITH AN IMPLANTABLE OR ATTACHED FUNERAL DRIVER: No RADIOLOGY DEPARTMENT: Mammography PERIPHERAL IV DATA: Not applicable SIGNED BY: Carla Medrano December 15, 2023 10:49 AM documented in this encounterPromedica [facility] Hospital05-07-2024 Telephone encounter Note * Telephone Encounter - Franklin Arias MD - 11/18/2023 12:02 PM EDT Noted. [facility]05-07-2024 Miscellaneous Notes* Telephone Encounter - Franklin Arias MD - 11/18/2023 12:02 PM EDT Noted. * Telephone Encounter - Patricia Rasheed LPN - 11/18/2023 11:37 AM EDT Pt states she gets her 75304 international unit(s) of Vit D from her [...] UA were all ok. documented in this encounterPromedica Memorial Hospital05-07-2024 Telephone encounter Note * Telephone Encounter - Patricia Rasheed LPN - 11/18/2023 11:37 AM EDT Pt states she gets her [id number] international unit(s) of Vit D from her gastrologist. Pt states she has not found the B12 but she was taking 1000mcs daily. Pt states she has an appt with gastro today & will get all of her meds from them straightened out. Patricia Rasheed LPN [facility]05-01-2024 Telephone encounter Note* Telephone Encounter - Sophia Man MA - 11/12/2023 8:32 AM EDT Left message for patient to contact office. Sophia Man MA [facility]04-30-2024 Telephone encounter Note* Telephone Encounter - Franklin [...] taking the 1000 mcg once a day? [facility]04-30-2024 Telephone encounter Note* Telephone Encounter - Laila [...] #4 g w/4 refills. Laila Blanco MA [facility]04-29-2024 Telephone encounter Note* Telephone Encounter - Di Ireland RN - 11/10/2023 2:07 PM EDT Patient notified and voiced understanding. Transferred to PSS in uro/dial equipment engineer to schedule appointment. Di Ireland RN [facility]04-29-2024 Miscellaneous Notes* Telephone Encounter - Di Ireland RN - 11/10/2023 2:07 PM EDT Patient notified and voiced understanding. Transferred to PSS in uro/dial equipment engineer to schedule appointment. Di Ireland RN * Telephone Encounter - Hollie Hoover APRN.CNP - 11/10/2023 1:27 PM EDT Please let patient know I reviewed case with RR who recommends referral to uro dial equipment engineer for evaluation and possible surgery. Please assist in scheduling. Hollie Hoover APRN.LAZARO documented in this encounterPromedica Memorial Hospital04-29-2024 Telephone encounter Note * Telephone Encounter - Hollie Hoover APRN.CNP - 11/10/2023 1:27 PM EDT Please let patient know I reviewed case with RR who recommends referral to uro dial equipment engineer for evaluation and possible surgery. Please assist in scheduling. Hollie Hoover APRN.CNP [facility]04-29-2024 History of Present illness Narrative* Hollie Hoover [...] Live Births0 Comment: One child is . Lactation Specialist History LMP: 03/12/2010, Postmenopausal Age at Menarche: Age at First : Age at Menopause: Lactation Specialist History Comments: Sexual Activity: Yes; Male Contraception: [...] external genitalia normal, normal Bartholin's glands, urethra, Wortham's glands, no vulvar lesions, no cervical lesions, [...] Level: 4 - Moderate documented in this encounterProm[facility]04-29-[facility]24 Telephone encounter Note * Telephone Encounter - Sophia Man MA - 11/10/2023 8:45 AM EDT Left message for patient to contact office. Sophia Man MA [facility]04[facility] Telephone encounter Note* Telephone Encounter - Franklin [...] it to improve her Vit D level. [facility]04-25-[facility] Telephone encounter Note* Telephone Encounter - Yu [...] taking lipitor daily with no missed doses. [facility]04-[facility] Telephone encounter Note* Telephone Encounter - Franklin [...] her labs and UA were all ok. [facility]04-23-[facility]24 Instructions* Patient Instructions* Franklin Arias MD - [...] review all the medicines you take, even vkgx-lce-dlixbue medicines. As you get older, the way [...] have certain medical conditions. 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 Obesity, Class I, BMI 30-34.9 - [...] which included preparing to see the patient, wkoa-dw-jvrz patient care, completing clinical documentation, performing a medically appropriate examination, counseling and educating the patient/family/caregiver and ordering medications, tests, or procedures. Franklin Arias MD documented in this encounterPromedica Memorial Hospital04-15-2024 History of Present illness Narrative* Shantal Galan PA-C - 10/27/2023 2:00 PM EDT Shantal Galan PA-C Department of Orthopaedics Orthopaedics [address] [place] [address] Dept: [phone] Dept October 27, 2023 CHIEF COMPLAINT: Established [...] radial, median and ulnar nerve distribution Ms. Hall Yu Sahni was advised as to contrast therapies [...] Oxycodone This note was partially generated using Magnetic voice recognition system, and there may be [...] cervical and 06/19/23. Received steroid injection at [facility] on 08/25/23. Patient states that the injection helped initially. Some soreness still, but better than before. documented in this encounterPromedica Memorial Hospital02-13-2024 Miscellaneous Notes* Telephone Encounter - Ludivina Hanna [...] pain management providers. Order for PT in [facility]. documented in this encounterPromedica Memorial Hospital02-12-2024 History of Present illness Narrative* Shantal Galan PA-C - 08/25/2023 2:31 PM ESTAssociated Order(s): Large Joint Arthro/Inj: R subacromial bursa Post-Procedure Diagnose(s): Bursitis of right shoulder; Acute pain of right shoulder Shantal Galan PA-C Department of Orthopaedics Orthopaedics [address] [facility] [address] Dept: [phone] Dept August 25, 2023 Consultation requested by [...] subacromial bursa Informed Consent Consent Obtained: Verbal [place] Protocol A moment to CARE was completed. [...] accounted for. Imaging: IMPRESSION: NO ACUTE FINDINGS. 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 documented in this encounterPromedica Memorial Hospital02-12-2024 History of Present illness Narrative* Kat Andrews [...] PATIENT PRESENTS WITH AN IMPLANTABLE OR ATTACHED FUNERAL DRIVER: No RADIOLOGY DEPARTMENT: General X-ray: Exam(s) Completed: Spine X-Ray(s): Cervical AP / LAT / OBL PERIPHERAL IV DATA: Not applicable SIGNED BY: RT Kylah(R) August 25, 2023 3:25 PM documented in this encounterPromedica Memorial Hospital02-06-2024 Miscellaneous Notes* Telephone Encounter - Heena Goss LPN - 08/19/2023 8:09 AM EST [...] FRANKLIN ARIAS MD * Telephone Encounter - Jim Sandersie - 08/18/2023 3:43 PM EST Patient has [...] Thank you. Johanne Sanders. documented in this encounterPromedica Memorial Hospital12-07-2023 History of Present illness Narrative* Giselle Robles [...] 19, 2023 2:52 PM documented in this encounterPromedica Memorial Hospital10-03-2023 Miscellaneous Notes* Telephone Encounter - Cielo Romero [...] labs in 1 week. documented in this encounterPromedica Memorial Hospital09-08-2023 History of Present illness Narrative* Oly Man APRN.CNP - 03/21/2023 2:40 PM EDT CC: Patient [...] be getting worse not better. Oly Man APRN.REBRANDER Prescription instructions reviewed with patient as applicable. Potential red flag symptoms discussed with the patient. Reviewed appropriate action plan to take if red flag symptoms occur. Patient agreeable to treatment plan. lOy Man APRN.REBRANDER documented in this encounterPromedica Memorial Hospital05-31-2023 Miscellaneous Notes* Telephone Encounter - Altaf Bean LPN - 12/11/2022 8:29 AM EDT Lft message of same on pt's identified vm. Altaf Bean LPN * Telephone Encounter - Altaf Bean LPN - 12/11/2022 8:28 AM EDT ----- Message from Cecily Coelho PA-C sent at 12/11/2022 8:10 AM EDT ----- Normal mammogram. Repeat in 1 year. documented in this encounterPromedica Memorial Hospital05-30-2023 Miscellaneous Notes* Letter - Mammography Coordinator - 12/10/2022 4:43 PM EDT December 11, 2022 PID: [id number] Isabel Sahni [address] [place] [address] Dear Ms. Sahni, We are pleased to [...] report [facility] permanent medical record and are available for your continuing care. Thank you for allowing us to help in meeting your health care needs. Sincerely, Dr. Goldstein Interpreting Radiologist [facility] (Normal over 40) documented in this encounterPromedica Memorial Hospital05-30-2023 History of Present illness Narrative* Purvi Barnes [...] 10, 2022 12:54 PM documented in this encounterPromedica Memorial Hospital04-25-2023 History of Present illness Narrative* DEVAUGHN Mcgowan - 11/05/2022 1:50 PM EDT This note was created using Noviriter. Subjective Isabel Sahni is a 67 year old female. HPI 67-year-old female presents for sinus congestion, sinus pressure, cough x3 weeks. Patient states she has had nasal congestion for the past 2 to 3 weeks. She has had a cough as well. She states she has a lot of headaches and sinus pressure. She has been taking hihp-eyx-pjfrbgi medications without much improvement. No fevers recently, [...] ER evaluation. DEVAUGHN Mcgowan documented in this encounterPromedica Memorial Hospital04-03-2023 Miscellaneous Notes* Telephone Encounter - Cecily Coelho [...] Thanks. Cecily Coelho PA-C documented in this encounterPromedica Memorial Hospital03-28-2023 History of Present illness Narrative* Cecily Coelho [...] mg/day for 50+ - Patient was counseled trod-kg-txhf by myself (the billing provider) for the [...] Follow up 6 months. documented in this encounterPromedica Memorial Hospital01-24-2023 Miscellaneous Notes* Telephone Encounter - Mariya Meza Pss - 08/06/2022 9:30 AM EST Pharmacy verified in [facility] Patient has been identified by name [...] advise. Mariya Meza Pss documented in this encounterPromedica Memorial Hospital11-07-2022 History of Present illness Narrative* Hal Desai [...] care. Hal Desai MD documented in this encounterPromedica Memorial Hospital11-01-2022 Instructions* Patient Instructions* Florencia Lew PA-C - 05/14/2022 9:51 AM EDT The following instructions are important for you related to your office visit today with the [facility] General Surgeons. INSTRUCTIONS FOLLOWING A POLYP [...] you should contact our office immediately @ [phone] and ask to be transferred to the General Surgery department. documented in this encounterPromedica Memorial Hospital11-01-2022 History of Present illness Narrative* Florencia Lew PA-C - 05/14/2022 9:34 AM EDT FOLLOW UP VISIT - ENDOSCOPY NAME: [facility] NO.: [id number] DATE OF SERVICE: 05/14/2022 : 1955 REFERRING [...] (97.1 F), height 160 cm (5' 3), dcorbr88.3 kg (219 lb), last menstrual period 03/30/2010, [...] which included preparing to see the patient, osrr-up-xrcj patient care, completing clinical documentation, obtaining and/or reviewing separately obtained history, communicating with other HCPs (not separately reported), independently interpret ing results (not separately reported), and communicating results to the patient/family/caregiver. Florencia Lew PA-C documented in this encounterPromedica Memorial Hospital10-26-2022 Miscellaneous Notes* Telephone Encounter - Joy Mcfarlane [...] changes in Tx needed. documented in this encounterPromedica Memorial Hospital10-25-2022 Miscellaneous Notes* Telephone Encounter - Altaf Bean LPN - 05/07/2022 2:12 PM EDT Pt notified of same with verbalized understanding. Altaf Bean LPN * Telephone Encounter - Cecily Coelho PA-C - 05/07/2022 1:59 PM EDT Xray does show moderate arthritic changes. documented in this encounterPromedica Memorial Hospital10-25-2022 History of Present illness Narrative* Giselle Robles [...] 07, 2022 11:08 AM documented in this encounterPromedica Memorial Hospital10-25-2022 Instructions* Patient Instructions* Cecily Coelho PA-C - 05/07/2022 10:[address] Corona's office for refills on documented in this encounterPromedica Memorial Hospital10-25-2022 History of Present illness Narrative* Cecily Coelho [...] AP/LAT/L5-S1 Cecily Coelho PA-C documented in this encounterPromedica Memorial Hospital10-17-2022 History of Present illness Narrative* Rosie Trejo LPN - 04/29/2022 10:13 AM EDT Patient presents for flu and COVID vaccines. Denies any problems at this time. Tolerated injectionswell. Rosie Trejo LPN documented in this encounterPromedica Memorial Hospital10-04-2022 Miscellaneous Notes* Telephone Encounter - Cielo Hudson [...] recent were all ok. documented in this encounterPromedica Memorial Hospital09-27-2022 Instructions* Patient Instructions* Franklin Arias MD - 04/09/2022 9:06 AM EDT Wait to complete your blood work until on or after 04/26/2022 documented in this encounterPromedica Memorial Hospital09-27-2022 History of Present illness Narrative* Franklin Arias [...] Abs Lymph 1.00 - 4.00 k/uL 2.17 Upton% % 9.0 Abs Upton <0.87 k/uL 0.44 Eosin% % 0.0 Abs [...] Negative Negative Ketones, Urine Negative Negative Specific L[place]y, Ur 1.005 - 1.030 1.012 Hemoglobin/Blood,Ur Negative [...] WAE Franklin Arias MD documented in this encounterPromedica Memorial Hospital08-30-2022 Nurse Note* Luann Medina RN - 03/12/2022 [...] 1 year and should be done in [place] so MAC can be offered. documented in this encounterPromedica Memorial Hospital08-30-2022 History and physical note * Riley Farrell [...] entered by the nurse and reviewed by az Nursing Notes: Ana Mejía 11/05/2021 9:12 AM [...] Mammogram screening? 10/30/2021 Last Colonoscopy: 01/27/2017 Ana Alfonzo I have confirmed and edited as necessary, [...] patient was offered a [facility]/procedure [facility]. I have counseled the [...] entered by the nurse and reviewed by az Nursing Notes: Ana Mejía 11/05/2021 9:12 AM [...] patient was offered a surgery/procedure at a [facility] facility. I have counseled the [...] mail. Florencia Lew PA-C documented in this encounterPromedica Memorial Hospital06-30-2022 Miscellaneous Notes* Telephone Encounter - Mehreen Veras [...] weeks. Cecily Coelho PA-C documented in this encounterPromedica Memorial Hospital06-28-2022 History of Present illness Narrative* Cecily Coelho PA-C - 01/08/2022 1:20 PM EDT Chief Complaint Patient presents with: Recheck: blood pressure HPI Iasbel Sahni is a 66 year old female [...] c-scope. Cecily Coelho PA-C documented in this encounterPromedica Memorial Hospital06-22-2022 Miscellaneous Notes* Telephone Encounter - Jane Enciso [...] at home against her med list in [facility]. Heena Goss LPN * Telephone Encounter - [...] she has at home. documented in this encounterPromedica Memorial Hospital06-14-2022 Miscellaneous Notes* Telephone Encounter - Altaf Bean [...] Family medicine was 124/81. Cecily Coelho PA-C * Telephone [...] BP. Sophia Man MA documented in this encounterPromedica Memorial Hospital06-14-2022 Instructions* Patient Instructions* Cecily Coelho PA-C - [...] OTC. Cecily Coelho PA-C documented in this encounterPromedica Memorial Hospital06-14-2022 History of Present illness Narrative* Cecily Coelho [...] gasto. Cecily Coelho PA-C documented in this encounterPromedica Memorial Hospital06-14-2022 Nurse Note* Blanche Crawley Ma - 12/25/2021 10:32 AM EDT BP AVERAGE 1. 170/89 2. 156/82 69 3. 160/80 71 4. 174/121 72 5. 162.84 71 6. 154/78 69 Average 163/89 70 documented in this encounterPromedica Memorial Hospital06-13-2022 Nurse Note* Luann Medina RN - 12/24/2021 11:20 AM EDT Patient returned to restroom after dressing, able to pass more air, reports soreness in abdomen is down to a 3 on pain scale. * Lunan Medina RN - 12/24/2021 11:14 AM EDT [...] after patient in PACU. documented in this encounterPromedica Memorial Hospital06-13-2022 History and physical note * David Palmer [...] entered by the nurse and reviewed by me Nursing Notes: Ana Alfonzo 11/05/2021 9:12 AM Signed REVIEW OF SYSTEMS: [...] patient was offered a surgery/procedure at a [facility] facility. I have counseled the [...] 2021 TIME: 9:22 AM documented in this encounterPromedica Memorial Hospital05-27-2022 Miscellaneous Notes* Telephone Encounter - Korina Goss LPN - 12/07/2021 3:15 PM EDT Phone call placed brief message to contact a nurse. Korina Goss LPN * Telephone Encounter - Korina Goss LPN - 12/07/2021 3:13 PM EDT ----- Message from Crys Leary APRN.REBRANDER sent at 12/07/2021 7:14 AM EDT ----- Please notify patient of negative COVID test. documented in this encounterPromedica Memorial Hospital05-27-2022 Miscellaneous Notes* Telephone Encounter - Mireya Baltazar MA - 12/07/2021 11:56 AM EDT VM left with results, phone number left to call back with any questions. Mireya Baltazar MA * Telephone Encounter - Oly Man APRN.CNP - 12/07/2021 7:14 AM EDT Negative for covid please notify thank you documented in this encounterPromedica Memorial Hospital05-26-2022 History of Present illness Narrative* Hal Desai [...] Diarrhea, OTC: Nyquil Completed fourth dose of SIGKAT COVID-19 vaccine in October. PAST MEDICAL HISTORY [...] CAPSULE Hal Desai MD documented in this encounterPromedica Memorial Hospital04-29-2022 Miscellaneous Notes* Telephone Encounter - Jane Enciso [...] will put in consult. documented in this encounterPromedica Memorial Hospital04-27-2022 History of Present illness Narrative* Blanche Gooden, [...] 2021 TIME: 2:39 PM documented in this encounterPromedica Memorial Hospital04-25-2022 Miscellaneous Notes* Telephone Encounter - Nataly Alexander - 11/05/2021 9:50 AM EDT [facility] documented in this [facility]04-19-2022 Miscellaneous Notes* Telephone Encounter - Altaf Bean LPN - 10/30/2021 9:56 AM EDT Left message of same on pt's identified vm. Altaf Bean LPN * Telephone Encounter - Altaf Bean LPN - 10/30/2021 9:54 AM EDT ----- Message from Cecily Coelho PA-C sent at 10/30/2021 8:55 AM EDT ----- Normal mammogram. Repeat in 1 year. documented in this [facility]04-19-2022 Miscellaneous Notes* Letter - Mammography Coordinator - 10/30/2021 7:56 AM EDT October 30, 2021 PID: [id number] Isabel Sahni [address] [place] [address] Dear Ms. Sahni, We are pleased to [...] [facility] medical [facility] and are available for your continuing care. Thank you for allowing us to help in meeting your health care needs. Sincerely, Dr. Baptiste Interpreting Radiologist [facility] (Normal over 40) documented in this encounterPromedica Memorial Hospital04-18-2022 History of Present illness Narrative* Carla Chao - 10/29/2021 1:30 PM EDT Radiology Service [...] PERIPHERAL IV DATA: Not applicable SIGNED BY: Jeremi Chaoo Zoe October 29, 2021 1:46 PM documented in this encounterPromedica Memorial Hospital04-12-2022 Miscellaneous Notes* Telephone Encounter - Cecily Coelho PA-C - 10/23/2021 7:17 AM EDT I am cancelling MRI of Liver. Only MRI Panc/Christos wo/w contrast is needed. Cecily Coelho PA-C documented in this encounterPromedica Memorial Hospital04-11-2022 Miscellaneous Notes* Telephone Encounter - Franklin Arias [...] PCP. Rosie Trejo LPN documented in this encounterPromedica Memorial Hospital04-11-2022 History of Present illness Narrative* Rosie Trejo [...] PCP. Rosie Trejo LPN documented in this encounterPromedica Memorial Hospital04-05-2022 NoteHNO ID: [id number] Author: Geraldine Okeefe MD Service: ? Author [...] further assistance to you Sincerely Geraldine Stearns, [facility] [phone] Miscellaneous Notes* Telephone Encounter - Patricia Rasheed LPN - 10/16/2021 12:34 PM EDT Pt returned call & was notified of results & providers message. Pt was transferred to mine utility operator to schedule MRI & lab test. [...] me. Cecily Coelho PA-C documented in this encounterPromedica Memorial Hospital04-05-2022 History of Present illness Narrative* Geraldine Okeefe [...] Sincerely Geraldine Stearns MD documented in this encounterPromedica Memorial Hospital03-31-2022 Miscellaneous Notes* Telephone Encounter - Yu Price [...] liver. Cecily Coelho PA-C documented in this encounterPromedica Memorial Hospital03-23-2022 Miscellaneous Notes* Telephone Encounter - Mehreen Veras RN - 10/03/2021 2:28 PM EDT Spoke with patient. Given message from provider's office. Patient verbalizes understanding. Mehreen Veras RN * Telephone Encounter - Altfa Bean LPN - 10/02/2021 11:28 AM EDT [...] the once weekly vitamin. Prescription sent Cecily Coeloh PA-C documented in this encounterPromedica Memorial Hospital03-21-2022 History of Present illness Narrative* Cecily Coelho [...] recommended once yearly - Patient was counseled deia-sn-oozr by myself (the billing provider) for the [...] IM Cecily Coelho PA-C documented in this encounterPromedica Memorial Hospital09-19-2014 History of Past illness Narrative* Problem Noted Date Resolved Date Bile leak 04/01/2014 12/30/2016 Right upper quadrant pain 02/14/20142016 documented as of this encounter (statuses as of 10/01/2021) [facility] Narrative* Problem Noted Date Resolved Date Bile leak 04/01/2014 12/30/2016 Right upper quadrant pain 02/14/20142016 documented as of this encounter (statuses as of 10/03/2021) [facility] Narrative* Problem Noted Date Resolved Date Bile leak 04/01/2014 12/30/2016 Right upper quadrant pain 02/14/20142016 documented as of this encounter (statuses as of 10/11/2021) [facility] Narrative* Problem Noted Date Resolved Date Bile leak 04/01/2014 12/30/2016 Right upper quadrant pain 02/14/20142016 documented as of this encounter (statuses as of 10/16/2021) [facility] Narrative* Problem Noted Date Resolved Date Bile leak 04/01/2014 12/30/2016 Right upper quadrant pain 02/14/20142016 documented as of this encounter (statuses as of 10/16/2021) [facility] Narrative* Problem Noted Date Resolved Date Bile leak 04/01/2014 12/30/2016 Right upper quadrant pain 02/14/20142016 documented as of this encounter (statuses as of 10/17/2021) [facility] Narrative* Problem Noted Date Resolved Date Bile leak 04/01/2014 12/30/2016 Right upper quadrant pain 02/14/20142016 documented as of this encounter (statuses as of 10/22/2021) [facility] Narrative* Problem Noted Date Resolved Date Bile leak 04/01/2014 12/30/2016 Right upper quadrant pain 02/14/20142016 documented as of this encounter (statuses as of 10/22/2021) [facility] Narrative* Problem Noted Date Resolved Date Bile leak 04/01/2014 12/30/2016 Right upper quadrant pain 02/14/20142016 documented as of this encounter (statuses as of 10/23/2021) [facility] Narrative* Problem Noted Date Resolved Date Bile leak 04/01/2014 12/30/2016 Right upper quadrant pain 02/14/20142016 documented as of this encounter (statuses as of 10/30/2021) [facility] Narrative* Problem Noted Date Resolved Date Bile leak 04/01/2014 12/30/2016 Right upper quadrant pain 02/14/20142016 documented as of this encounter (statuses as of 10/30/2021) [facility] Narrative* Problem Noted Date Resolved Date Bile leak 04/01/2014 12/30/2016 Right upper quadrant pain 02/14/20142016 documented as of this encounter (statuses as of 11/01/2021) [facility] Narrative* Problem Noted Date Resolved Date Bile leak 04/01/2014 12/30/2016 Right upper quadrant pain 02/14/20142016 documented as of this encounter (statuses as of 11/08/2021) [place] [address]-19-2014 History of Past illness Narrative* Problem Noted Date Resolved Date Bile leak 04/01/2014 12/30/2016 Right upper quadrant pain 02/14/20142016 documented as of this encounter (statuses as of 11/09/2021) [facility]arrative* Problem Noted Date Resolved Date Bile leak 04/01/2014 12/30/2016 Right upper quadrant pain 02/14/20142016 documented as of this encounter (statuses as of 12/06/2021) [facility]arrative* Problem Noted Date Resolved Date Bile leak 04/01/2014 12/30/2016 Right upper quadrant pain 02/14/20142016 documented as of this encounter (statuses as of 12/07/2021) [facility]arrative* Problem Noted Date Resolved Date Bile leak 04/01/2014 12/30/2016 Right upper quadrant pain 02/14/20142016 documented as of this encounter (statuses as of 12/20/2021) [facility]* Problem Noted Date Resolved Date Bile leak 04/01/2014 12/30/2016 Right upper quadrant pain 02/14/20142016 documented as of this encounter (statuses as of 12/25/2021) [facility]* Problem Noted Date Resolved Date Bile leak 04/01/2014 12/30/2016 Right upper quadrant pain 02/14/20142016 documented as of this encounter (statuses as of 12/25/2021) [facility]* Problem Noted Date Resolved Date Bile leak 04/01/2014 12/30/2016 Right upper quadrant pain 02/14/20142016 documented as of this encounter (statuses as of 12/25/2021) [facility]* Problem Noted Date Resolved Date Bile leak 04/01/2014 12/30/2016 Right upper quadrant pain 02/14/20142016 documented as of this encounter (statuses as of 01/03/2022) [facility]* Problem Noted Date Resolved Date Bile leak 04/01/2014 12/30/2016 Right upper quadrant pain 02/14/20142016 documented as of this encounter (statuses as of 01/08/2022) [facility]* Problem Noted Date Resolved Date Bile leak 04/01/2014 12/30/2016 Right upper quadrant pain 02/14/20142016 documented as of this encounter (statuses as of 01/10/2022) [place] [address]-19-2014 History of Past illness Narrative* Problem Noted Date Resolved Date Bile leak 04/01/2014 12/30/2016 Right upper quadrant pain 02/14/20142016 documented as of this encounter (statuses as of 01/16/2022) [facility]* Problem Noted Date Resolved Date Bile leak 04/01/2014 12/30/2016 Right upper quadrant pain 02/14/20142016 documented as of this encounter (statuses as of 01/30/2022) [facility] [facility] Past [facility] Narrative* Problem Noted Date Resolved Date Bile leak 04/01/2014 12/30/2016 Right upper quadrant pain 02/14/20142016 documented as of this encounter (statuses as of 03/13/2022) [facility] History of Past illness Narrative* Problem Noted Date Resolved Date Bile leak 04/01/2014 12/30/2016 Right upper quadrant pain 02/14/20142016 documented as of this encounter (statuses as of 04/09/2022) [place] [address]-19-2014 History of Past illness Narrative* Problem Noted Date Resolved Date Bile leak 04/01/2014 12/30/2016 Right upper quadrant pain 02/14/20142016 documented as of this encounter (statuses as of 04/16/2022) [address]19-2014 History of Past illness Narrative* Problem Noted Date Resolved Date Bile leak 04/01/2014 12/30/2016 Right upper quadrant pain 02/14/20142016 documented as of this encounter (statuses as of 04/29/2022) [facility] History of Past illness Narrative* Problem Noted Date Resolved Date Bile leak 04/01/2014 12/30/2016 Right upper quadrant pain 02/14/20142016 documented as of this encounter (statuses as of 05/07/2022) [facility] History of Past illness Narrative* Problem Noted Date Resolved Date Bile leak 04/01/2014 12/30/2016 Right upper quadrant pain 02/14/20142016 documented as of this encounter (statuses as of 05/07/2022) [facility] History of Past illness Narrative* Problem Noted Date Resolved Date Bile leak 04/01/2014 12/30/2016 Right upper quadrant pain 02/14/20142016 documented as of this encounter (statuses as of 05/08/2022) [facility] History of Past illness Narrative* Problem Noted Date Resolved Date Bile leak 04/01/2014 12/30/2016 Right upper quadrant pain 02/14/20142016 documented as of this encounter (statuses as of 05/14/2022) [facility] History of Past illness Narrative* Problem Noted Date Resolved Date Bile leak 04/01/2014 12/30/2016 Right upper quadrant pain 02/14/20142016 documented as of this encounter (statuses as of 05/20/2022) [facility] History of Past illness Narrative* Problem Noted Date Resolved Date Bile leak 04/01/2014 12/30/2016 Right upper quadrant pain 02/14/20142016 documented as of this encounter (statuses as of 06/27/2022) [facility] History of Past illness Narrative* Problem Noted Date Resolved Date Bile leak 04/01/2014 12/30/2016 Right upper quadrant pain 02/14/20142016 documented as of this encounter (statuses as of 08/06/2022) [place] [address]-19-2014 History of Past illness Narrative* Problem Noted Date Resolved Date Bile leak 04/01/2014 12/30/2016 Right upper quadrant pain 02/14/20142016 documented as of this encounter (statuses as of 10/08/2022) [facility] History of Past illness Narrative* Problem Noted Date Resolved Date Bile leak 04/01/2014 12/30/2016 Right upper quadrant pain 02/14/20142016 documented as of this encounter (statuses as of 10/14/2022) [facility] History of Past illness Narrative* Problem Noted Date Resolved Date Bile leak 04/01/2014 12/30/2016 Right upper quadrant pain 02/14/20142016 documented as of this encounter (statuses as of 11/05/2022) [facility] History of Past illness Narrative* Problem Noted Date Resolved Date Bile leak 04/01/2014 12/30/2016 Right upper quadrant pain 02/14/20142016 documented as of this encounter (statuses as of 12/11/2022) [facility] History of Past illness Narrative* Problem Noted Date Resolved Date Bile leak 04/01/2014 12/30/2016 Right upper quadrant pain 02/14/20142016 documented as of this encounter (statuses as of 12/12/2022) [facility] History of Past illness Narrative* Problem Noted Date Diagnosed Date Resolved Date Bile leak 04/01/2014 12/30/2016 Right upper quadrant pain 02/14/2014 documented as of this encounter (statuses as of 03/21/2023) [facility] History of Past illness Narrative* Problem Noted Date Diagnosed Date Resolved Date Bile leak 04/01/2014 12/30/2016 Right upper quadrant pain 02/14/2014 documented as of this encounter (statuses as of 04/16/2023) [facility] History of Past illness Narrative* Problem Noted Date Diagnosed Date Resolved Date Bile leak 04/01/2014 12/30/2016 Right upper quadrant pain 02/14/2014 documented as of this encounter (statuses as of 05/18/2023) [facility] History of Past illness Narrative* Problem Noted Date Diagnosed Date Resolved Date Bile leak 04/01/2014 12/30/2016 Right upper quadrant pain 02/14/2014 documented as of this encounter (statuses as of 08/19/2023) [place] [address]-19-2014 History of Past illness Narrative* Problem Noted Date Diagnosed Date Resolved Date Bile leak 04/01/2014 12/30/2016 Right upper quadrant pain 02/14/2014 documented as of this encounter (statuses as of 08/25/2023) [place] [address]-19-2014 History of Past illness Narrative* Problem Noted Date Diagnosed Date Resolved Date Bile leak 04/01/2014 12/30/2016 Right upper quadrant pain 02/14/2014 documented as of this encounter (statuses as of 08/26/2023) [facility] History of Past illness Narrative* Problem Noted Date Diagnosed Date Resolved Date Bile leak 04/01/2014 12/30/2016 Right upper quadrant pain 02/14/2014 documented as of this encounter (statuses as of 08/26/2023) [place] [address]-19-2014 History of Past illness Narrative* Problem Noted Date Diagnosed Date Resolved Date Bile leak 04/01/2014 12/30/2016 Right upper quadrant pain 02/14/2014 documented as of this encounter (statuses as of 10/28/2023) [facility] Diagnosis Well adult exam- Primary Routine [...] single bacterial disease [facility] Elevated alkaline phosphatase level- Primary Other nonspecific abnormal serum enzyme levels Elevated fasting glucose Impaired fasting glucose Elevated vitamin B12 level [facility] Diagnosis Elevated alkaline phosphatase level- Primary Other nonspecific abnormal serum enzyme levels [facility] Diagnosis Elevated alkaline phosphatase level Other nonspecific abnormal serum enzyme levels [facility] Diagnosis Abnormal alkaline phosphatase test Other nonspecific abnormal serum enzyme levels [facility] Diagnosis Elevated alkaline phosphatase level- Primary Other nonspecific abnormal serum enzyme levels Abnormal results of liver function studies Nonspecific abnormal results of liver function study Elevated serum GGT level Other nonspecific abnormal serum enzyme levels Fatty (change of) liver, not elsewhere classified [facility] Diagnosis Essential hypertension- Primary Unspecified essential hypertension [facility]* Diagnosis Screening mammogram for breast cancer [facility] Diagnosis Abnormal results of liver function studies Nonspecific abnormal results of liver function study [facility]* Diagnosis Pancreatic cyst- Primary Cyst and pseudocyst of pancreas [facility]* Diagnosis URI, acute- Primary Acute upper respiratory infections of unspecified site [facility]* Diagnosis Onset Date Resolution Status Elevated alkaline phosphatase level acute IPMN (intraductal papillary mucinous neoplasm) acute NAFLD (nonalcoholic fatty liver disease) acute [facility] Work Phone: Evaluation note* Diagnosis Screening for colon cancer Special screening for malignant neoplasms, colon History of colonic polyps Personal history of colonic polyps [facility] Diagnosis Hypertension, essential- Primary Unspecified essential hypertension Pancreatic cyst Cyst and pseudocyst of pancreas [facility]* Diagnosis Essential hypertension- Primary Unspecified essential hypertension Leg cramping Cramp of limb Vitamin D deficiency Unspecified vitamin D deficiency Elevated vitamin B12 level Screening for colon cancer Special screening for malignant neoplasms, colon Mixed hyperlipidemia [facility] Diagnosis Hypokalemia- Primary Hypopotassemia [facility]* Diagnosis Screening for colon cancer- Primary Special screening for malignant neoplasms, colon History of colonic polyps Personal history of colonic polyps [facility] Diagnosis Onset Date Resolution Status Elevated alkaline phosphatase level acute IPMN (intraductal papillary mucinous neoplasm) acute NAFLD (nonalcoholic fatty liver disease) acute Elevated alkaline phosphatase level acute IPMN (intraductal papillary mucinous neoplasm) acute Liver fibrosis [facility] Work Phone: Evaluation note* Diagnosis Tubular adenoma polyp of rectum- Primary Benign neoplasm of rectum and anal canal Screening for colon cancer Special screening for malignant neoplasms, colon History of colonic polyps Personal history of colonic polyps [facility] Diagnosis Essential hypertension- Primary Unspecified essential [...] Cramp of limb [facility] Diagnosis Need for vaccination- Primary Need for prophylactic vaccination and inoculation against unspecified single disease Need for influenza vaccination Need for prophylactic vaccination and inoculation against influenza [facility] Diagnosis Essential hypertension- Primary Unspecified essential hypertension Chronic midline low back pain without sciatica [facility]* Diagnosis Carotid stenosis, bilateral Occlusion and stenosis of carotid artery without mention of cerebral infarction [facility] Diagnosis History of colonic polyps- Primary Personal history of colonic polyps Tubular adenoma Benign neoplasm of unspecified site [facility] Diagnosis Pain in both knees, unspecified chronicity- Primary [facility] Diagnosis Onset Date Resolution Status IPMN (intraductal papillary mucinous neoplasm) acute Liver fibrosis [facility] Work Phone: Evaluation note* Diagnosis Well adult [...] single bacterial disease [facility]* Diagnosis Bacterial sinusitis- Primary Unspecified sinusitis (chronic) documented in this encounter [facility] note* Diagnosis Acute cough- Primary [facility]* Diagnosis Hypokalemia- Primary Hypopotassemia [facility]* Diagnosis Encounter for screening mammogram for breast cancer [facility] Diagnosis Onset Date Resolution Status Gastro-esophageal reflux disease without esophagitis chronic STILES (nonalcoholic steatohepatitis) chronic Pancreatic cyst chronic [facility] Work Phone: Evaluation note* Diagnosis GERD without esophagitis Esophageal reflux Essential hypertension Unspecified essential hypertension [facility] Diagnosis Bursitis of right shoulder- Primary Disorders of bursae and tendons in shoulder region, unspecified Acute pain of right shoulder Cervicalgia [facility]* Diagnosis Cervicalgia [facility] Diagnosis Acute pain of right shoulder- Primary Cervicalgia DDD (degenerative disc disease), cervical Degeneration of cervical intervertebral disc [facility] Diagnosis Acute pain of right shoulder- Primary Cervicalgia Bursitis of right shoulder Disorders of bursae and tendons in shoulder region, unspecified [facility]* Diagnosis Encounter for Medicare annual wellness [...] of other medications [facility] Diagnosis Uterovaginal prolapse- Primary Uterovaginal prolapse, unspecified Cystocele, midline documented [facility] Diagnosis Uterovaginal prolapse- Primary Uterovaginal prolapse, unspecified [facility]* Diagnosis Mixed hyperlipidemia Pain in both knees, unspecified chronicity [facility]* Diagnosis Encounter for screening [facility] for breast cancer [facility] Essential hypertension Unspecified essential hypertension Mixed hyperlipidemia GERD without esophagitis Esophageal reflux [facility]* Diagnosis Acute pain of right shoulder documented in this encounter [facility] note* Diagnosis Chronic midline low back pain without sciatica documented in this encounter [facility] note* Diagnosis Pain in both knees, unspecified chronicity documented in this encounter [facility] noteNo assessment information [facility]WM[facility] Work Phone: Reason for referral (narrative)* Diagnostic Procedure Only (Routine) - Authorized Specialty Diagnoses / Procedures Referred By Contkarli t Referred To Contact [facility] Diagnoses Screening mammogram for breast cancer Procedures SRINATH SCREENING W JENNIFER SCREENING DIGITAL BREAST TOMOSYNTHESIS BI SCREENING MAMMOGRAPHY BI 2-VIEW BREAST INC CAD Cecily Coelho PA-C [address] [place] [address] [facility] [address] [place] [address] Referral ID Status Reason Start Date Expiration Date Visits Requested Visits Authorized [id number] Authorized Auto-Generat ed Referral 10/01/2021 10/31/2022 1 1 * Consult, Test, Treat (Routine) - Authorized Specialty Diagnoses / Procedures Referred By Yovany t Referred To Contact General Surgery Diagnoses Tubular adenoma polyp of rectum Procedures CONSULT TO GENERAL SURGERY OFFICE/OUTPATIENT NEW HIGH MDM 60-74 MINUTES Cecily Coelho PA-C [address] [place] [address] Referral ID Status Reason Start Date Expiration Date Visits Requested Visits Authorized [id number] Authorized PCP Requested Referral 10/01/2021 10/01/2022 1 1 [facility] for referral (narrative)* Diagnostic Procedure Only (Routine) - Authorized Specialty Diagnoses / Procedures Referred By Yovany t Referred To Contact [facility] Diagnoses Elevated alkaline phosphatase level Procedures US ABD RT UPPER QUADRANT US ABDOMINAL REAL TIME W/IMAGE LIMITED Cecily Coelho PA-C [address] [place] [address] [facility] Referral ID Status Reason Start Date Expiration Date Visits Requested Visits Authorized [id number] Authorized Auto-Generat ed Referral 10/10/2021 11/09/2022 1 1 * Consult, Test, Treat (Routine) - Authorized Specialty Diagnoses / Procedures Referred By Contac t Referred To Contact Gastroenterology Diagnoses Elevated alkaline phosphatase level Procedures CONSULT TO GASTROENTEROLOGY OFFICE/OUTPATIENT [facility] 60-74 MINUTES Cecily Coelho PA-C [address] [place] [address] Referral ID Status Reason Start Date Expiration Date Visits Requested Visits Authorized [id number] Authorized PCP Requested Referral 10/10/2021 10/10/2022 1 1 [facility] for referral (narrative)* Diagnostic Procedure Only (Routine) - Closed Specialty Diagnoses / Procedures Referred By Yovany t Referred To Contact [facility] Diagnoses Elevated alkaline phosphatase level Procedures US ABD RT UPPER QUADRANT US ABDOMINAL REAL TIME W/IMAGE LIMITED Cecily Coelho PA-C [address] [place] [address] [facility] Referral ID Status Reason Start Date Expiration Date V isits Requested Visits Authorized [id number] Closed Auto-Generate d Referral 10/10/2021 11/09/2022 1 1 [facility] for referral (narrative)* Diagnostic Procedure Only (Routine) - Closed Specialty Diagnoses / Procedures Referred By Contac t Referred To Contact [facility] Diagnoses Screening mammogram for breast cancer Procedures SRINATH SCREENING W JENNIFER SCREENING DIGITAL BREAST TOMOSYNTHESIS BI SCREENING MAMMOGRAPHY BI 2-VIEW BREAST INC CAD Cecily Coelho PA-C [address] [place] [address] [facility] [address] [place] [address] Referral ID Status Reason Start Date Expiration Date V isits Requested Visits Authorized [id number] Closed Auto-Generate d Referral 10/01/2021 10/31/2022 1 1 T [facility] for referral (narrative)* Outpatient Procedure (Routine) - Closed Specialty Diagnoses / Procedures Referred By Contac t Referred To Contact [facility] Diagnoses Screening for colon cancer History of colonic polyps Procedures COLONOSCOPY SCREENING COLONOSCOPY FLX DX W/COLLJ SPEC WHEN Florencia Cano PA-C [address] [place] [address] [facility] [address] [place] [address] Referral ID Status Reason Start Date Expiration Date V isits Requested Visits Authorized [id number] Closed Auto-Generate d Referral 11/06/2021 11/05/2022 1 1 T [facility] for referral (narrative)* Outpatient Procedure (Routine) - Closed Specialty Diagnoses / Procedures Referred By Contac t Referred To Contact [facility] Diagnoses Screening for colon cancer History of colonic polyps Procedures COLONOSCOPY SCREENING COLONOSCOPY FLX DX W/COLLJ SPEC WHEN Florencia Cano PA-C [address] [place] [address] [facility] [address] [place] [id number] Referral ID Status Reason Start Date Expiration Date V isits Requested Visits Authorized [id number] Closed Auto-Generate d Referral 11/06/2021 11/05/2022 1 1 [facility] for referral (narrative)* Outpatient Procedure (Routine) - Closed Specialty Diagnoses / Procedures Referred By Contac t Referred To Contact [facility] Diagnoses Screening for colon cancer History of colonic polyps Procedures COLONOSCOPY SCREENING COLONOSCOPY FLX DX W/COLLJ SPEC WHEN David Montana MD [address] [place] [address] [facility] [address] [place] [address] Referral ID Status Reason Start Date Expiration Date V isits Requested Visits Authorized [id number] Closed Auto-Generate d Referral 01/11/2022 01/11/2023 1 1 [facility] for referral (narrative)* Outpatient Procedure (Routine) - Authorized Specialty Diagnoses / Procedures Referred By Contac t Referred To Contact [facility] Diagnoses Carotid stenosis, bilateral Procedures US CAROTID ARTERIES [facility] DUPLEX SCAN EXTRACRANIAL ART COMPL BI STUDY Franklin Arias MD [address] [place] [address] [facility] [place] [id number] [place] [address] Referral ID Status Reason Start Date Expiration Date Visits Requested Visits Authorized [id number] Authorized Auto-Generat ed Referral 04/09/2022 04/09/2023 1 1 T [facility] for referral (narrative)* Diagnostic Procedure Only (Routine) - Closed Specialty Diagnoses / Procedures Referred By Contac t Referred To Contact XR IMAGING Diagnoses Chronic midline low back pain without sciatica Procedures XR LUMBAR GENERAL 3V AP/LAT/L5-S1 RADEX SPINE LUMBOSACRAL 2/3 VIEWS Cecily Coelho PA-C [address] [place] [address] X[facility] Imaging Referral ID Status Reason Start Date Expiration Date V isits Requested Visits Authorized [id number] Closed Auto-Generate d Referral 05/07/2022 06/06/2023 1 1 T [facility] for referral (narrative)* Diagnostic Procedure Only (Urgent) - Closed Specialty Diagnoses / Procedures Referred By Contac t Referred To Contact XR IMAGING Diagnoses Pain in both knees, unspecified chronicity Procedures XR KNEE GENERAL 4V AP BOTH/PA BOTH/LAT/MERC BILATERAL RADIOLOGIC EXAM KNEE COMPLETE 4/MORE VIEWS Hal Desai MD [address] [place] [address] X[facility] Referral ID Status Reason Start Date Expiration Date V isits Requested Visits Authorized [id number] Closed Auto-Generate d Referral 05/20/2022 06/19/2023 1 1 [facility] for referral (narrative)* Diagnostic Procedure Only (Routine) - Authorized Specialty Diagnoses / Procedures Referred By Contac t Referred To Contact [facility] Diagnoses Encounter for screening mammogram for breast cancer Procedures [facility] SCREENING SCREENING MAMMOGRAPHY BI 2-VIEW BREAST INC Cecily June PA-C [address] [place] [address] [facility] [address] [place] [address] Referral ID Status Reason Start Date Expiration Date Visits Requested Visits Authorized [id number] Authorized Auto-Generat ed Referral 10/08/2022 11/07/2023 1 1 T [facility] for referral (narrative)* Diagnostic Procedure Only (Routine) - Closed Specialty Diagnoses / Procedures Referred By Contac t Referred To Contact [facility] Diagnoses Encounter for screening mammogram for breast cancer Procedures SRINATH SCREENING SCREENING MAMMOGRAPHY BI 2-VIEW BREAST INC Cecily June PA-C [address] [place] [address] [facility] [address] [place] [address] Referral ID Status Reason Start Date Expiration Date V isits Requested Visits Authorized [id number] Closed Auto-Generate d Referral 10/08/2022 11/07/2023 1 1 T [facility] for referral (narrative)* Diagnostic Procedure Only (Routine) - Closed Specialty Diagnoses / Procedures Referred By Contac t Referred To Contact XR IMAGING Diagnoses Cervicalgia Procedures XR CERV OTHER 4V AP/LAT/OBL RADEX SPINE CERVICAL 4 OR 5 VIEWS Shantal Galan PA-C [address] [place] [address] [place] [address] Referral ID Status Reason Start Date Expiration Date V isits Requested Visits Authorized [id number] Closed Auto-Generate d Referral 08/25/2023 09/23/2024 1 1 [facility] for referral (narrative)* Diagnostic Procedure Only (Routine) - Closed Specialty Diagnoses / Procedures Referred By Contac t Referred To Contact XR IMAGING Diagnoses Cervicalgia Procedures XR CERV OTHER 4V AP/LAT/OBL RADEX SPINE CERVICAL 4 OR 5 VIEWS Shantal Galan PA-C [address] [place] [address] [place] [address] Referral ID Status Reason Start Date Expiration Date V isits Requested Visits Authorized [id number] Closed Auto-Generate d Referral 08/25/2023 09/23/2024 1 1 [facility] for referral (narrative)* Diagnostic Procedure Only (Routine) - Closed Specialty Diagnoses / Procedures Referred By Contac t Referred To Contact XR IMAGING Diagnoses Acute pain of right shoulder Procedures XR SHOULDER [id number] AP/TRUE AP RIGHT RADEX SHOULDER COMPLETE MINIMUM 2 VIEWS Sudha Parsons, REBRANDER [address] [place] [address] [place] [address] Referral ID Status Reason Start Date Expiration Date V isits Requested Visits Authorized [id number] Closed Auto-Generate d Referral 06/19/2023 07/18/2024 1 1 [facility] for referral (narrative)* Diagnostic Procedure Only (Routine) - Closed Specialty Diagnoses / Procedures Referred By Contac t Referred To Contact XR IMAGING Diagnoses Chronic midline low back pain without sciatica Procedures XR LUMBAR GENERAL 3V AP/LAT/L5-S1 RADEX SPINE LUMBOSACRAL 2/3 VIEWS Cecily Coelho PA-C [address] [place] [address] [place] [address] Referral ID Status Reason Start Date Expiration Date V isits Requested Visits Authorized [id number] Closed Auto-Generate d Referral 05/07/2022 06/06/2023 1 1 [facility] for referral (narrative)* Diagnostic Procedure Only (Urgent) - Closed Specialty Diagnoses / Procedures Referred By Contac t Referred To Contact XR IMAGING Diagnoses Pain in both knees, unspecified chronicity Procedures XR KNEE GENERAL 4V AP BOTH/PA BOTH/LAT/MERC BILATERAL RADIOLOGIC EXAM KNEE COMPLETE 4/MORE VIEWS Hal Desai MD [address] [place] [id number] Xr Imaging [facility] Referral ID Status Reason Start Date Expiration Date V isits Requested Visits Authorized [id number] Closed Auto-Generate d Referral 05/20/2022 06/19/2023 1 1 [facility] for referral (narrative)No reason for referral information availableWMary[facility] Work Phone: Reason for visit Narrative* Diagnostic Procedure Only (Routine) - Closed Specialty Diagnoses / Procedures Referred By Contac t Referred To Contact US IMAGING Diagnoses Elevated alkaline phosphatase level Procedures US ABD RT UPPER QUADRANT US ABDOMINAL REAL TIME W/IMAGE LIMITED Cecily Coelho PA-C [address] [place] [address] Us Imaging Referral ID Status Reason Start Date Expiration Date V isits Requested Visits Authorized [id number] Closed Auto-Generate d Referral 10/10/2021 11/09/2022 1 1 [facility] for visit Narrative* Diagnostic Procedure Only (Routine) - Closed Specialty Diagnoses / Procedures Referred By Contac t Referred To Contact BR IMAGING Diagnoses Screening mammogram for breast cancer Procedures SRINATH SCREENING W JENNIFER SCREENING DIGITAL BREAST TOMOSYNTHESIS BI SCREENING MAMMOGRAPHY BI 2-VIEW BREAST INC CAD Cecily Coelho PA-C [address] [place] [address] Br Imaging [address] [place] [address] Referral ID Status Reason Start Date Expiration Date V isits Requested Visits Authorized [id number] Closed Auto-Generate d Referral 10/01/2021 10/31/2022 1 1 [facility] for visit Narrative* Outpatient Procedure (Routine) - Closed Specialty Diagnoses / Procedures Referred By Contac t Referred To Contact [facility] Diagnoses Screening for colon cancer History of colonic polyps Procedures COLONOSCOPY SCREENING COLONOSCOPY FLX DX W/COLLJ SPEC WHEN PFRMFlorencia Damon PA-C [address] [place] [address] [facility] Disease [address] [address] Referral ID Status Reason Start Date Expiration Date V isits Requested Visits Authorized [id number] Closed Auto-Generate d Referral 11/06/2021 11/05/2022 1 1 [facility] for visit Narrative* Outpatient Procedure (Routine) - Closed Specialty Diagnoses / Procedures Referred By Contac t Referred To Contact [facility] Diagnoses Screening for colon cancer History of colonic polyps Procedures COLONOSCOPY SCREENING COLONOSCOPY FLX DX W/COLLJ SPEC WHEN PFDavid Artis MD [address] [facility] [address] [facility] Disease [place] [address] [place] [id number] Referral ID Status Reason Start Date Expiration Date V isits Requested Visits Authorized [id number] Closed Auto-Generate d Referral 01/11/2022 01/11/2023 1 1 [facility] for visit Narrative* Diagnostic Procedure Only (Routine) - Closed Specialty Diagnoses / Procedures Referred By Contac t Referred To Contact BR IMAGING Diagnoses Encounter for screening mammogram for breast cancer Procedures SRINATH SCREENING SCREENING MAMMOGRAPHY BI 2-VIEW BREAST INC Cecily June PA-C [address] [place] [address] Br Imaging [address] [place] [address] Referral ID Status Reason Start Date Expiration Date V isits Requested Visits Authorized [id number] Closed Auto-Generate d Referral 10/08/2022 11/07/2023 1 1 [facility] for visit Narrative* Diagnostic Procedure Only (Routine) - Closed Specialty Diagnoses / Procedures Referred By Contac t Referred To Contact XR IMAGING Diagnoses Cervicalgia Procedures XR CERV OTHER 4V AP/LAT/OBL RADEX SPINE CERVICAL 4 OR 5 VIEWS Shantal Galan PA-C [address] [place] [address] [place] [address] Referral ID Status Reason Start Date Expiration Date V isits Requested Visits Authorized [id number] Closed Auto-Generate d Referral 08/25/2023 09/23/2024 1 1 [facility] for visit Narrative* Diagnostic Procedure Only (Routine) - Closed Specialty Diagnoses / Procedures Referred By Contac t Referred To Contact BR IMAGING Diagnoses Encounter for screening mammogram for breast cancer Procedures SRINATH SCREENING SCREENING MAMMOGRAPHY BI 2-VIEW BREAST INC CAD Franklin Arias MD [address] [place] [address] Br Imaging [address] [place] [address] Referral ID Status Reason Start Date Expiration Date V isits Requested Visits Authorized [id number] Closed Auto-Generate d Referral 11/04/2023 12/02/2024 1 1 [facility] for visit Narrative* Diagnostic Procedure Only (Routine) - Closed Specialty Diagnoses / Procedures Referred By Contac t Referred To Contact XR IMAGING Diagnoses Acute pain of right shoulder Procedures XR SHOULDER [id number] AP/TRUE AP RIGHT RADEX SHOULDER COMPLETE MINIMUM 2 VIEWS Sudha Parsons APRN.REBRANDER [address] [place] [address] [place] [address] Referral ID Status Reason Start Date Expiration Date V isits Requested Visits Authorized [id number] Closed Auto-Generate d Referral 06/19/2023 07/18/2024 1 1 [facility] for visit Narrative* Diagnostic Procedure Only (Routine) - Closed Specialty Diagnoses / Procedures Referred By Contac t Referred To Contact XR IMAGING Diagnoses Chronic midline low back pain without sciatica Procedures XR LUMBAR GENERAL 3V AP/LAT/L5-S1 RADEX SPINE LUMBOSACRAL 2/3 VIEWS Cecily Coelho PA-C [address] [place] [address] [place] [address] Referral ID Status Reason Start Date Expiration Date V isits Requested Visits Authorized [id number] Closed Auto-Generate d Referral 05/07/2022 06/06/2023 1 1 [facility] for visit Narrative* Diagnostic Procedure Only (Routine) - Closed Specialty Diagnoses / Procedures Referred By Contac t Referred To Contact XR IMAGING Diagnoses Pain in both knees, unspecified chronicity Procedures XR KNEE GENERAL 4V AP BOTH/PA BOTH/LAT/MERC RIGHT RADIOLOGIC EXAM KNEE COMPLETE 4/MORE VIEWS Hal Desai MD [address] [place] [address] [place] [address] Referral ID Status Reason Start Date Expiration Date V isits Requested Visits Authorized [id number] Closed Auto-Generate d Referral 05/20/2022 06/19/2023 1 1 [facility] Advance Directives No Advanced Directives Records FoundDocuments on File Type Date 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 Advance Directive(s) 01/27/2017 10:17 AM Advance Directive(s) 09/14/2015 9:30 AM Advance Directive(s) 09/08/2015 12:19 PM Advance Directive(s) 09/02/2015 10:06 AM Documents on File Type Date Recorded 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 Advance Directive(s) 01/27/2017 10:17 AM Advance Directive(s) 09/14/2015 9:30 AM Advance Directive(s) 09/08/2015 12:19 PM Advance Directive(s) 09/02/2015 10:06 AM Documents on File Type Date Recorded 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 Advance Directive(s) 11/13/2021 2:05 PM Advance Directive(s) 01/27/2017 10:17 AM Advance Directive(s) 09/14/2015 9:30 AM Advance Directive(s) 09/08/2015 12:19 PM Advance Directive(s) 09/02/2015 10:06 AM Advance Directive Response Recorded Date/ Time Advance Directives No May 17, 2014 12:10pm Living Will No November 27, 2020 1 0:28am Power of Surveyor Instrument Assistant No November 27, 2020 10:28am Documents on File Type Date Recorded 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 Advance Directive(s) 12/24/2021 8:40 AM Advance Directive(s) 11/13/2021 2:05 PM Advance Directive(s) 01/27/2017 10:17 AM Advance Directive(s) 09/14/2015 9:30 AM Advance Directive(s) 09/08/2015 12:19 PM Advance Directive(s) 09/02/2015 10:06 AM Documents on File Type Date Recorded 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 Advance Directive(s) 12/24/2021 8:40 AM Advance Directive(s) 11/13/2021 2:05 PM Advance Directive(s) 01/27/2017 10:17 AM Advance Directive(s) 09/14/2015 9:30 AM Advance Directive(s) 09/08/2015 12:19 PM Advance Directive(s) 09/02/2015 10:06 AM Documents on File Type Date Recorded 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 Advance Directive(s) 01/29/2022 7:05 PM Advance Directive(s) 12/24/2021 8:40 AM Advance Directive(s) 11/13/2021 2:05 PM Advance Directive(s) 01/27/2017 10:17 AM Advance Directive(s) 09/14/2015 9:30 AM Advance Directive(s) 09/08/2015 12:19 PM Advance Directive(s) 09/02/2015 10:06 AM Advance Directive Response Recorded Date/ Time Advance Directives No May 17, 2014 11:10am Living Will No November 27, 2020 9 :28am Power of Surveyor Instrument Assistant No November 27, 2020 9:28am Advance Directive Response Recorded Date/ Time Advance Directives No May 17, 2014 12:10pm Reason for Referral Specialty Diagnoses / Procedures Referred By Yovany t Referred To Contact MR IMAGING Diagnoses Fatty (change of) liver, not elsewhere classified Procedures MRI LIVER WO/W IVCON MRI ABDOMEN W/O & W/CONTRAST MATERIAL Cecily Coelho PA-C [address] [place] [address] Mr Imaging Referral ID Status Reason Start Date Expiration Date Visits Requested Visits Authorized [id number] Authorized Auto-Generat ed Referral 10/16/2021 12/15/2021 1 1 Specialty Diagnoses / Procedures Referred By Contac t Referred To Contact MR IMAGING Diagnoses Abnormal results of liver function studies Procedures MRI PANC/CHRISTOS WO/W IVCON MRI ABDOMEN W/O & W/CONTRAST MATERIAL Cecily Coelho PA-C [address] [place] [address] Mr Imaging Referral ID Status Reason Start Date Expiration Date V isits Requested Visits Authorized [id number] Closed Auto-Generate d Referral 10/16/2021 11/15/2022 1 1 Specialty Diagnoses / Procedures Referred By Contac t Referred To Contact Gastroenterology Diagnoses Pancreatic cyst Procedures CONSULT TO GASTROENTEROLOGY OFFICE/OUTPATIENT [facility] 60-74 MINUTES Cecily Coelho PA-C [address] [place] [address] Referral ID Status Reason Start Date Expiration Date Visits Requested Visits Authorized [id number] Authorized PCP Requested Referral 11/08/2021 11/08/2022 1 1 Specialty Diagnoses / Procedures Referred By Contac t Referred To Contact General Surgery Diagnoses Screening for colon cancer Procedures CONSULT TO GENERAL SURGERY OFFICE/OUTPATIENT [facility] 60-74 MINUTES Cecily Coelho PA-C [address] [place] [address] Referral ID Status Reason Start Date Expiration Date Visits Requested Visits Authorized [id number] Authorized PCP Requested Referral 01/08/2022 01/08/2023 1 1 Specialty Diagnoses / Procedures Referred By Contac t Referred To Contact Cecily Coelho PA-C [address] [place] [address] Referral ID Status Reason Start Date Expiration Date Visits Re quested Visits Authorized [id number] Closed 1 1 Specialty Diagnoses / Procedures Referred By Contac t Referred To Contact [facility] Diagnoses Acute pain of right shoulder Cervicalgia DDD (degenerative disc disease), cervical Procedures CONSULT TO PHYSICAL THERAPY PHYSICAL THERAPY EVALUATION HIGH COMPLEX 45 MINS Shantal Galan PA-C [address] [place] [address] [facility] [place] [address] [place] [address] Referral ID Status Reason Start Date Expiration Date Visits Requested Visits Authorized [id number] Pending Review Auto-Generat ed Referral 08/26/2023 08/25/2024 1 1 Specialty Diagnoses / Procedures Referred By Contac t Referred To Contact Diagnoses Vaginal anomaly Procedures CONSULT TO WHEAT WASHER OFFICE/OUTPATIENT [facility] 60 MINUTES Franklin Arias MD [address] [place] [address] Referral ID Status Reason Start Date Expiration Date Visits Requested Visits Authorized [id number] Authorized PCP Requested Referral Auto-Generate d Referral 11/04/2023 11/03/2024 1 1 Specialty Diagnoses / Procedures Referred By Contac t Referred To Contact BR IMAGING Diagnoses Encounter for screening mammogram for breast cancer Procedures SRINATH SCREENING SCREENING MAMMOGRAPHY BI 2-VIEW BREAST INC CAD Franklin Arias MD [address] [place] [address] Br Imaging [address] [place] [address] Referral ID Status Reason Start Date Expiration Date Visits Requested Visits Authorized [id number] Authorized Auto-Generat ed Referral 11/04/2023 12/02/2024 1 1 Specialty Diagnoses / Procedures Referred By Contac t Referred To Contact Diagnoses Uterovaginal prolapse Procedures CONSULT TO URO GYNECOLOGY OFFICE/OUTPATIENT [facility] 60 MINUTES Hollie Hoover APRN.LAZARO [address] [place] [address] Referral ID Status Reason Start Date Expiration Date Visits Requested Visits Authorized [id number] Authorized PCP Requested Referral Auto-Generate d Referral [...] consent/UDS result s March 22, 2025 1:16pm Chief Complaint Admit Date preop H&P UC and sign consent/UDS result s March 22, 2025 1:16pm EORDERS March 22, 2025 2:14pm Reason for Visit Admit Date Incomplete uterovaginal prolapse Septemb er 2024 1:16pm Nocturia March 22, 2025 1:16pm Overactive bladder March 22, 2025 1:16pm Urge incontinence March 22, 2025 1:16pm Vaginal atrophy March 22, 2025 1:16pm Medications Administered Section [...] or prosecute any alcohol or drug abuse patient.[facility] HospitalIn the event this information is protected by the Federal Confidentiality of Alcohol and Drug Abuse Patient Records regulations: The Federal rules restrict any use of the information to criminally investigate or prosecute any alcohol or drug abuse patient.[facility] HospitalIn the event this information is protected by the Federal Confidentiality of Alcohol and Drug Abuse Patient Records regulations: The Federal rules restrict any use of the information to criminally investigate or prosecute any alcohol or drug abuse patient.[facility] HospitalIn the event this information is protected by the Federal Confidentiality of Alcohol and Drug Abuse Patient Records regulations: The Federal rules restrict any use of the information to criminally investigate or prosecute any alcohol or drug abuse patient.[facility] HospitalIn the event this information is protected by the Federal Confidentiality of Alcohol and Drug Abuse Patient Records regulations: The Federal rules restrict any use of the information to criminally investigate or prosecute any alcohol or drug abuse patient.[facility] HospitalIn the event this information is protected by the Federal Confidentiality of Alcohol and Drug Abuse Patient Records regulations: The Federal rules restrict any use of the information to criminally investigate or prosecute any alcohol or drug abuse patient.[facility] HospitalIn the event this information is protected by the Federal Confidentiality of Alcohol and Drug Abuse Patient Records regulations: The Federal rules restrict any use of the information to criminally investigate or prosecute any alcohol or drug abuse patient.[facility] HospitalIn the event this information is protected by the Federal Confidentiality of Alcohol and Drug Abuse Patient Records regulations: The Federal rules restrict any use of the information to criminally investigate or prosecute any alcohol or drug abuse patient.[facility] HospitalIn the event this information is protected by the Federal Confidentiality of Alcohol and Drug Abuse Patient Records regulations: The Federal rules restrict any use of the information to criminally investigate or prosecute any alcohol or drug abuse patient.[facility] HospitalIn the event this information is protected by the Federal Confidentiality of Alcohol and Drug Abuse Patient Records regulations: The Federal rules restrict any use of the information to criminally investigate or prosecute any alcohol or drug abuse patient.[facility] HospitalIn the event this information is protected by the Federal Confidentiality of Alcohol and Drug Abuse Patient Records regulations: The Federal rules restrict any use of the information to criminally investigate or prosecute any alcohol or drug abuse patient.[facility] HospitalIn the event this information is protected by the Federal Confidentiality of Alcohol and Drug Abuse Patient Records regulations: The Federal rules restrict any use of the information to criminally investigate or prosecute any alcohol or drug abuse patient.[facility] HospitalIn the event this information is protected by the Federal Confidentiality of Alcohol and Drug Abuse Patient Records regulations: The Federal rules restrict any use of the information to criminally investigate or prosecute any alcohol or drug abuse patient.[facility] HospitalIn the event this information is protected by the Federal Confidentiality of Alcohol and Drug Abuse Patient Records regulations: The Federal rules restrict any use of the information to criminally investigate or prosecute any alcohol or drug abuse patient.[facility] HospitalIn the event this information is protected by the Federal Confidentiality of Alcohol and Drug Abuse Patient Records regulations: The Federal rules restrict any use of the information to criminally investigate or prosecute any alcohol or drug abuse patient.[facility] HospitalIn the event this information is protected by the Federal Confidentiality of Alcohol and Drug Abuse Patient Records regulations: The Federal rules restrict any use of the information to criminally investigate or prosecute any alcohol or drug abuse patient.[facility] HospitalIn the event this information is protected by the Federal Confidentiality of Alcohol and Drug Abuse Patient Records regulations: The Federal rules restrict any use of the information to criminally investigate or prosecute any alcohol or drug abuse patient.[facility] HospitalIn the event this information is protected by the Federal Confidentiality of Alcohol and Drug Abuse Patient Records regulations: The Federal rules restrict any use of the information to criminally investigate or prosecute any alcohol or drug abuse patient.[facility] HospitalIn the event this information is protected by the Federal Confidentiality of Alcohol and Drug Abuse Patient Records regulations: The Federal rules restrict any use of the information to criminally investigate or prosecute any alcohol or drug abuse patient.[facility] HospitalIn the event this information is protected by the Federal Confidentiality of Alcohol and Drug Abuse Patient Records regulations: The Federal rules restrict any use of the information to criminally investigate or prosecute any alcohol or drug abuse patient.[facility] HospitalIn the event this information is protected by the Federal Confidentiality of Alcohol and Drug Abuse Patient Records regulations: The Federal rules restrict any use of the information to criminally investigate or prosecute any alcohol or drug abuse patient.[facility] HospitalIn the event this information is protected by the Federal Confidentiality of Alcohol and Drug Abuse Patient Records regulations: The Federal rules restrict any use of the information to criminally investigate or prosecute any alcohol or drug abuse patient.[facility] HospitalIn the event this information is protected by the Federal Confidentiality of Alcohol and Drug Abuse Patient Records regulations: The Federal rules restrict any use of the information to criminally investigate or prosecute any alcohol or drug abuse patient.[facility] HospitalIn the event this information is protected by the Federal Confidentiality of Alcohol and Drug Abuse Patient Records regulations: The Federal rules restrict any use of the information to criminally investigate or prosecute any alcohol or drug abuse patient.[facility] HospitalIn the event this information is protected by the Federal Confidentiality of Alcohol and Drug Abuse Patient Records regulations: The Federal rules restrict any use of the information to criminally investigate or prosecute any alcohol or drug abuse patient.[facility] HospitalIn the event this information is protected by the Federal Confidentiality of Alcohol and Drug Abuse Patient Records regulations: The Federal rules restrict any use of the information to criminally investigate or prosecute any alcohol or drug abuse patient.[facility] HospitalIn the event this information is protected by the Federal Confidentiality of Alcohol and Drug Abuse Patient Records regulations: The Federal rules restrict any use of the information to criminally investigate or prosecute any alcohol or drug abuse patient.[facility] HospitalIn the event this information is protected by the Federal Confidentiality of Alcohol and Drug Abuse Patient Records regulations: The Federal rules restrict any use of the information to criminally investigate or prosecute any alcohol or drug abuse patient.[facility] HospitalIn the event this information is protected by the Federal Confidentiality of Alcohol and Drug Abuse Patient Records regulations: The Federal rules restrict any use of the information to criminally investigate or prosecute any alcohol or drug abuse patient.[facility] HospitalIn the event this information is protected by the Federal Confidentiality of Alcohol and Drug Abuse Patient Records regulations: The Federal rules restrict any use of the information to criminally investigate or prosecute any alcohol or drug abuse patient.[facility] HospitalIn the event this information is protected by the Federal Confidentiality of Alcohol and Drug Abuse Patient Records regulations: The Federal rules restrict any use of the information to criminally investigate or prosecute any alcohol or drug abuse patient.[facility] HospitalIn the event this information is protected by the Federal Confidentiality of Alcohol and Drug Abuse Patient Records regulations: The Federal rules restrict any use of the information to criminally investigate or prosecute any alcohol or drug abuse patient.[facility] the event this information is protected by the Federal Confidentiality of Alcohol and Drug Abuse Patient Records regulations: The Federal rules restrict any use of the information to criminally investigate or prosecute any alcohol or drug abuse patient.[facility] HospitalIn the event this information is protected by the Federal Confidentiality of Alcohol and Drug Abuse Patient Records regulations: The Federal rules restrict any use of the information to criminally investigate or prosecute any alcohol or drug abuse patient.[facility] HospitalIn the event this information is protected by the Federal Confidentiality of Alcohol and Drug Abuse Patient Records regulations: The Federal rules restrict any use of the information to criminally investigate or prosecute any alcohol or drug abuse patient.[facility] HospitalIn the event this information is protected by the Federal Confidentiality of Alcohol and Drug Abuse Patient Records regulations: The Federal rules restrict any use of the information to criminally investigate or prosecute any alcohol or drug abuse patient.[facility] HospitalIn the event this information is protected by the Federal Confidentiality of Alcohol and Drug Abuse Patient Records regulations: The Federal rules restrict any use of the information to criminally investigate or prosecute any alcohol or drug abuse patient.[facility] HospitalIn the event this information is protected by the Federal Confidentiality of Alcohol and Drug Abuse Patient Records regulations: The Federal rules restrict any use of the information to criminally investigate or prosecute any alcohol or drug abuse patient.[facility] HospitalIn the event this information is protected by the Federal Confidentiality of Alcohol and Drug Abuse Patient Records regulations: The Federal rules restrict any use of the information to criminally investigate or prosecute any alcohol or drug abuse patient.[facility] HospitalIn the event this information is protected by the Federal Confidentiality of Alcohol and Drug Abuse Patient Records regulations: The Federal rules restrict any use of the information to criminally investigate or prosecute any alcohol or drug abuse patient.[facility] HospitalIn the event this information is protected by the Federal Confidentiality of Alcohol and Drug Abuse Patient Records regulations: The Federal rules restrict any use of the information to criminally investigate or prosecute any alcohol or drug abuse patient.[facility] HospitalIn the event this information is protected by the Federal Confidentiality of Alcohol and Drug Abuse Patient Records regulations: The Federal rules restrict any use of the information to criminally investigate or prosecute any alcohol or drug abuse patient.[facility] HospitalIn the event this information is protected by the Federal Confidentiality of Alcohol and Drug Abuse Patient Records regulations: The Federal rules restrict any use of the information to criminally investigate or prosecute any alcohol or drug abuse patient.[facility] HospitalIn the event this information is protected by the Federal Confidentiality of Alcohol and Drug Abuse Patient Records regulations: The Federal rules restrict any use of the information to criminally investigate or prosecute any alcohol or drug abuse patient.[facility] HospitalIn the event this information is protected by the Federal Confidentiality of Alcohol and Drug Abuse Patient Records regulations: The Federal rules restrict any use of the information to criminally investigate or prosecute any alcohol or drug abuse patient.[facility] HospitalIn the event this information is protected by the Federal Confidentiality of Alcohol and Drug Abuse Patient Records regulations: The Federal rules restrict any use of the information to criminally investigate or prosecute any alcohol or drug abuse patient.[facility] HospitalIn the event this information is protected by the Federal Confidentiality of Alcohol and Drug Abuse Patient Records regulations: The Federal rules restrict any use of the information to criminally investigate or prosecute any alcohol or drug abuse patient.[facility] HospitalIn the event this information is protected by the Federal Confidentiality of Alcohol and Drug Abuse Patient Records regulations: The Federal rules restrict any use of the information to criminally investigate or prosecute any alcohol or drug abuse patient.[facility] HospitalIn the event this information is protected by the Federal Confidentiality of Alcohol and Drug Abuse Patient Records regulations: The Federal rules restrict any use of the information to criminally investigate or prosecute any alcohol or drug abuse patient.[facility] HospitalIn the event this information is protected by the Federal Confidentiality of Alcohol and Drug Abuse Patient Records regulations: The Federal rules restrict any use of the information to criminally investigate or prosecute any alcohol or drug abuse patient.[facility] HospitalIn the event this information is protected by the Federal Confidentiality of Alcohol and Drug Abuse Patient Records regulations: The Federal rules restrict any use of the information to criminally investigate or prosecute any alcohol or drug abuse patient.[facility] HospitalIn the event this information is protected by the Federal Confidentiality of Alcohol and Drug Abuse Patient Records regulations: The Federal rules restrict any use of the information to criminally investigate or prosecute any alcohol or drug abuse patient.[facility] HospitalIn the event this information is protected by the Federal Confidentiality of Alcohol and Drug Abuse Patient Records regulations: The Federal rules restrict any use of the information to criminally investigate or prosecute any alcohol or drug abuse patient.[facility] HospitalIn the event this information is protected by the Federal Confidentiality of Alcohol and Drug Abuse Patient Records regulations: The Federal rules restrict any use of the information to criminally investigate or prosecute any alcohol or drug abuse patient.[facility] HospitalIn the event this information is protected by the Federal Confidentiality of Alcohol and Drug Abuse Patient Records regulations: The Federal rules restrict any use of the information to criminally investigate or prosecute any alcohol or drug abuse patient.[facility] HospitalIn the event this information is protected by the Federal Confidentiality of Alcohol and Drug Abuse Patient Records regulations: The Federal rules restrict any use of the information to criminally investigate or prosecute any alcohol or drug abuse patient.[facility] HospitalIn the event this information is protected by the Federal Confidentiality of Alcohol and Drug Abuse Patient Records regulations: The Federal rules restrict any use of the information to criminally investigate or prosecute any alcohol or drug abuse patient.[facility] HospitalIn the event this information is protected by the Federal Confidentiality of Alcohol and Drug Abuse Patient Records regulations: The Federal rules restrict any use of the information to criminally investigate or prosecute any alcohol or drug abuse patient.[facility] HospitalIn the event this information is protected by the Federal Confidentiality of Alcohol and Drug Abuse Patient Records regulations: The Federal rules restrict any use of the information to criminally investigate or prosecute any alcohol or drug abuse patient.[facility] HospitalIn the event this information is protected by the Federal Confidentiality of Alcohol and Drug Abuse Patient Records regulations: The Federal rules restrict any use of the information to criminally investigate or prosecute any alcohol or drug abuse patient.[facility] HospitalIn the event this information is protected by the Federal Confidentiality of Alcohol and Drug Abuse Patient Records regulations: The Federal rules restrict any use of the information to criminally investigate or prosecute any alcohol or drug abuse patient.[facility] Reason for Visit (unrecogniz ed section and content) Reason Comments Physical Reason Comments Results Reason Comments Results Reason Comments Blood Pressure Check Reason Comments Orders Specialty Diagnoses / Procedures Referred By Contac t Referred To Contact MR IMAGING Diagnoses Abnormal results of liver function studies Procedures MRI PANC/CHRISTOS WO/W IVCON MRI ABDOMEN W/O & W/CONTRAST MATERIAL Cecily Coelho PA-C [address] [place] [address] Mr Imaging Referral ID Status Reason Start Date Expiration Date V isits Requested Visits Authorized [id number] Closed Auto-Generate d Referral 10/16/2021 11/15/2022 1 [...] ORTHOPAEDICS OFFICE/OUTPATIENT NEW HIGH MDM 60-74 MINUTES Sudha Parsons, CONCRETE PUMP OPERATOR HELPER.REBRANDER [address] [place] [address] Referral ID Status Reason Start Date Expiration Date V isits Requested Visits Authorized [id number] Closed PCP Requested Referral 06/19/2023 06/18/2024 1 1 Reason Comments Established Patient Follow Up Reason Comments Medicare Wellness Exam Reason Comments Vaginal Problem Prolapse? Specialty Diagnoses / Procedures Referred By Contac t Referred To Contact Diagnoses Vaginal anomaly Procedures CONSULT TO WHEAT WASHER OFFICE/OUTPATIENT NEW HIGH MDM 60 MINUTES Franklin Arias MD [facility] [place] [address] Referral ID Status Reason Start Date Expiration Date V isits Requested Visits Authorized [id number] Closed PCP Requested Referral Auto-Generated Referral 11/04/2023 11/03/2024 1 1 Reason Comments Patient Update Reason Comments Refill Request Reason Onset Date Comments Blood Pressure Check 12/02/2024 Care Teams (unrecognized sec tion and content) Oil Well Cable Tool Operator Relationship Specialty Start Date End Date Franklin Arias MD [address] [place] [address] PCP - General Family Practice 07/17/20 [employer] Cable Tool Operator Relationship Specialty Start Date End Date Franklin Arias MD [address] [facility] [place] [place] [address] PCP - General Family Practice 07/17/20 Oil Well Cable Tool Operator Relationship Specialty Start Date End Date Franklin Arias MD [address] [facility] [place] [place] [address] PCP - General Family Practice 07/17/20 Oil Well Cable Tool Operator Relationship Specialty Start Date End Date Franklin Arias MD [facility] [place] [place] [address] PCP - General Family Practice 07/17/20 Oil Well Cable Tool Operator Relationship Specialty Start Date End Date Franklin Arias MD [facility] [place] [place] [address] PCP - General Family Practice 07/17/20 Oil Well Cable Tool Operator Relationship Specialty Start Date End Date Franklin Arias MD [facility] [place] [place] [address] PCP - General Family Practice 07/17/20 Oil Well Cable Tool Operator Relationship Specialty Start Date End Date Fraknlin Arias MD [facility] [place] [place] [address] PCP - General Family Practice 07/17/20 Oil Well Cable Tool Operator Relationship Specialty Start Date End Date Franklin Arias MD [facility] [place] [place] [address] PCP - General Family Practice 07/17/20 Oil Well Cable Tool Operator Relationship Specialty Start Date End Date Franklin Arias MD [facility] [place] [place] [address] PCP - General Family Practice 07/17/20 Oil Well Cable Tool Operator Relationship Specialty Start Date End Date Franklin Arias MD [facility] [place] [place] [address] PCP - General Family Practice 07/17/20 Oil Well Cable Tool Operator Relationship Specialty Start Date End Date Franklin Arias MD [address] [facility] [place] [address] PCP - General Family Practice 07/17/20 Oil Well Cable Tool Operator Relationship Specialty Start Date End Date Franklin Arias MD [facility] [place] [place] [address] PCP - General Family Practice 07/17/20 Oil Well Cable Tool Operator Relationship Specialty Start Date End Date Franklin Arias MD [facility] [place] [place] [address] PCP - General Family Practice 07/17/20 Oil Well Cable Tool Operator Relationship Specialty Start Date End Date Franklin Arias MD [address] [place] [address], [place] [address] PCP - General Family Practice 07/17/20 Oil Well Cable Tool Operator Relationship Specialty Start Date End Date Franklin Arias MD [address] [place] [address], [place] [address] PCP - General Family Practice 07/17/20 Oil Well Cable Tool Operator Relationship Specialty Start Date End Date Franklin Arias MD [address] [place] [address], [place] [address] PCP - General Family Practice 07/17/20 Oil Well Cable Tool Operator Relationship Specialty Start Date End Date Franklin Arias MD [facility] [place] [place] [address] PCP - General Family Practice 07/17/20 Oil Well Cable Tool Operator Relationship Specialty Start Date End Date Franklin Arias MD [address] [place] [address], [place] [address] PCP - General Family Practice 07/17/20 Oil Well Cable Tool Operator Relationship Specialty Start Date End Date Franklin Arias MD [address] [place] [address], [place] [address] PCP - General Family Practice 07/17/20 Oil Well Cable Tool Operator Relationship Specialty Start Date End Date Franklin Arias MD [address] [place] [address] PCP - General Family Practice 07/17/20 Oil Well Cable Tool Operator Relationship Specialty Start Date End Date Franklin Arias MD [address] [facility] [place] [address] PCP - General Family Medicine 07/17/20 Oil Well Cable Tool Operator Relationship Specialty Start Date End Date Franklin Arias MD [address] [place] [address] PCP - General Family Medicine 07/17/20 Oil Well Cable Tool Operator Relationship Specialty Start Date End Date Franklin Arias MD [address] [place] [address] PCP - General Family Medicine 07/17/20 Oil Well Cable Tool Operator Relationship Specialty Start Date End Date Franklin Arias MD [facility] [place] [address] PCP - General Family Medicine 07/17/20 Oil Well Cable Tool Operator Relationship Specialty Start Date End Date Franklin Arias MD [facility] [place] [address] PCP - General Family Medicine 07/17/20 Oil Well Cable Tool Operator Relationship Specialty Start Date End Date Franklin Arias MD [facility] [place] [address] PCP - General Family Medicine 07/17/20 Oil Well Cable Tool Operator Relationship Specialty Start Date End Date Franklin Arias MD [facility] [place] [address] PCP - General Family Medicine 07/17/20 Oil Well Cable Tool Operator Relationship Specialty Start Date End Date Franklin Arias MD [address] [facility] [place] [place] [address] PCP - General Family Medicine 07/17/20 Oil Well Cable Tool Operator Relationship Specialty Start Date End Date Franklin Arias MD [address] [facility] [place] [address] PCP - General Family Medicine 07/17/20 Oil Well Cable Tool Operator Relationship Specialty Start Date End Date Franklin Arias MD [address] [place] [address] PCP - General Family Medicine 07/17/20 Oil Well Cable Tool Operator Relationship Specialty Start Date End Date Franklin Arias MD [address] [place] [address] PCP - General Family Medicine 07/17/20 Oil Well Cable Tool Operator Relationship Specialty Start Date End Date Franklin Arias MD [address] [place] [address] PCP - General Family Medicine 07/17/20 Oil Well Cable Tool Operator Relationship Specialty Start Date End Date Franklin Arias MD [address] [place] [address] PCP - General Family Medicine 07/17/20 Oil Well Cable Tool Operator Relationship Specialty Start Date End Date Franklin Arias MD [address] [place] [address] PCP - General Family Medicine 07/17/20 Oil Well Cable Tool Operator Relationship Specialty Start Date End Date Franklin Arias MD [address] [place] [address] PCP - General Family Medicine 07/17/20 Oil Well Cable Tool Operator Relationship Specialty Start Date End Date Franklin Arias MD [address] [place] [address] PCP - General Family Medicine 07/17/20 Team Status: Active Member Role Status Dates Dr. Miguel Ángel Miguel MD Family Provider Active DEVAUGHN Monroy Primary Care Provider Active Team Status: Inactive Member Role Status Dates DEVAUGHN Monroy Primary Care Provider, Referri ng Provider Active Dr. Migue Hutchinson MD Attending Provider Active Team Status: Inactive Member Role Status Dates DEVAUGHN Monroy Primary Care Provider Active Dr. Migue Hutchinson MD Attending Provider, Referring P rovider Active [employer] Cable Tool Operator Relationship Specialty Start Date End Date Franklin Arias MD [address] [place] [address] PCP - General Family Medicine 07/17/20 Oil Well Cable Tool Operator Relationship Specialty Start Date End Date Franklin Arias MD [address] [place] [address] PCP - General Family Medicine 07/17/20 Oil Well Cable Tool Operator Relationship Specialty Start Date End Date Franklin Arias MD [address] [place] [address] PCP - General Family Medicine 07/17/20 Oil Well Cable Tool Operator Relationship Specialty Start Date End Date Franklin Arias MD [address] [place] [address] PCP - General Family Medicine 07/17/20 Team Status: Active Member Role Status Dates DEVAUGHN Monroy Primary Care Provider Active Dr. Migue Hutchinson MD Attending Provider, Referring P rovider Active Team Status: Inactive Member Role Status Dates DEVAUGHN Monroy Primary Care Provider Active Ed Physician Provider Emergency Provider Active [employer] Cable Tool Operator Relationship Specialty Start Date End Date Franklin Arias MD [address] [place] [address] PCP - General Family Medicine 07/17/20 Oil Well Cable Tool Operator Relationship Specialty Start Date End Date Franklin Arias MD [address] [place] [address] PCP - General Family Medicine 07/17/20 Oil Well Cable Tool Operator Relationship Specialty Start Date End Date Franklin Arias MD [address] [place] [address] PCP - General Family Medicine 07/17/20 Oil Well Cable Tool Operator Relationship Specialty Start Date End Date Franklin Arias MD [address] [place] [address] PCP - General Family Medicine 07/17/20 Oil Well Cable Tool Operator Relationship Specialty Start Date End Date Franklin Arias MD [address] [place] [address] PCP - General Family Medicine 07/17/20 Oil Well Cable Tool Operator Relationship Specialty Start Date End Date Franklin Arias MD [address] [place] [address] PCP - General Family Medicine 07/17/20 Oil Well Cable Tool Operator Relationship Specialty Start Date End Date Franklin Arias MD [address] [place] [address] PCP - General Family Medicine 07/17/20 Oil Well Cable Tool Operator Relationship Specialty Start Date End Date Franklin Arias MD [address] [place] [address] PCP - General Family Medicine 07/17/20 Oil Well Cable Tool Operator Relationship Specialty Start Date End Date Franklin Arias MD [address] [place] [address] PCP - General Family Medicine 07/17/20 Oil Well Cable Tool Operator Relationship Specialty Start Date End Date Franklin Arias MD [address] [place], [place] [address] PCP - General Family Medicine 07/17/20 Oil Well Cable Tool Operator Relationship Specialty Start Date End Date Franklin Arias MD [address] [place] [address] PCP - General Family Medicine 07/17/20 Team [...] November 02, 2024 End: November 02, 2024 Oil Well Cable Tool Operator Relationship Specialty Start Date End Date Franklin Arias MD [address] [place] [address] PCP - General Family Medicine 10/18/24 Cecily Coelho PA-C [address] [place] [address] [facility] 06/19/24 12/12/24 Sudha Parsons APRN.[facility] [address] [place] [address] [facility] 12/13/24 Cecily Coelho PA-C [address] [place] [address] [facility] 12/13/24 Team Status: Active Member Role/Relationship [...] March 22, 2025 End: March 22, 2025 Team Status: Active Member Role/Relationship Status Dates Dr. Paula Barrera DO Primary care physician Active Team Status: Inactive Member Role/Relationship Status Dates Dr. Paula Barrera DO Primary care physician Active Start: January 11, 2025 Dr. Shaquille Ayala MD Attending physician Active Start: January 11, 2025 Team Status: Inactive Member Role/Relationship Status Dates Dr. Paula Barrera DO Primary care physician Active Start: March 22, 2025 End: March 22, 2025 Dr. Paula Barrera DO Referring Provider Active Start: March 22, 2025 End: March 22, 2025 Dr. Shaquille Ayala MD Attending physician Active Start: March 22, 2025 End: March 22, 2025 Team Status: Inactive Member Role/Relationship Status Dates Dr. Paula Barrera DO Primary care physician Active Start: March 22, 2025 End: March 22, 2025 Dr. Shaquille Ayala MD Attending physician Active Start: March 22, 2025 End: March 22, 2025 Dr. Shaquille Ayala MD Referring Provider Active Start: March 22, 2025 End: March 22, 2025 INFORMATION SOURCE (unrecogn ized section and content) DATE CREATED AUTHOR 10/18/2021 [facility] DATE CREATED AUTHOR AUTHOR'S ORGANIZ ATION 02/20/2025 [facility] DATE CREATED AUTHOR AUTHOR'S ORGANIZ ATION 04/14/2025 [facility] Goals (unrecognized section and content) Goals [...] Given 08/25/2023 2:48 PM EST 4 mL Freda conway, Right FOR RECORDS PERTAINING TO PATIENTS WHO [...] BE BASED ON THE PRIMARY CLINICAL RECORDS. [facility] [employer] [facility]. provides no warranty or guarantee of the accuracy or completeness of information in this document.
[2025-04-15] MEDS: Lactated Ringers 1,000 ML 40 ML IV (06:14)
[2025-04-15] MEDS: Magnesium 2 GM for ERAS IV (06:15)
[2025-04-15 06:22] LABS: Hematocrit 38.5 % (37-47); Hemoglobin 13.0 g/dL (12.0-15.0); Immature Granulocytes Count 0.020 X10^3/uL (0.0-0.0); Mean Corp Hgb Conc 33.8 g/dL (32-36); Mean Corpuscular Volume 99.7 fL (81-99); Mean Platelet Vol. 11.5 fl (6.2-12.0); NRBC Flagged by Analyzer 0 % (0-5); Platelet Count 172 K/mm3 (150-450); RBC Distribution Width CV 12.6 % (11.6-14.6); RBC Distribution Width SD 46.0 fl (35.1-43.9); Red Blood Count 3.86 M/mm3 (4.2-5.4); White Blood Count 5.6 K/mm3 (4.4-11.0)
[2025-04-15] MEDS: Scopolamine 1mg/72hr Patch 1 PATCH TD (06:28)
--- NOTE | 2025-04-15 06:44 | PCM.PRE.AN2 ---
ASA Classification* ASA Classification ASA Classification: 2 Assessment & Plan Anesthesia* Anesthesia Assessment Anesthesia Assessment: Discussed sedation and/or anesthesia options, risks, benefits, and alternatives with patient/parents/legal guardian/POA. Questions invited. The patient/parents/legal guardian/POA seems to understand and agrees to proceed with anesthesia plan. Reviewed the physical assessment, medical history, allergy history and patient home medications list prior to surgery/procedure/anesthetic and documented any changes. Performed airway and anesthesia risk assessments. Anesthesia Type Anesthesia Type: General Anesthesia Focused Assessment* Temperature: 98.2 F Pulse Rate: 67 Blood Pressure: 146/70 Respiratory Rate: 18 Pulse Ox: 98 Airway Assessment Mouth opens: >3 cm Mallampati Score: II Labs Anesthesia Preop lab: CBC WBC, (4.4-11.0) 5.6 K/mm3 Today, 06:08 RBC, (4.2-5.4) 3.86 M/mm3 L Today, 06:08 Hgb, (12.0-15.0) 13.0 g/dL Today, 06:08 Hct, (37-47) 38.5 % Today, 06:08 Plt Count, (150-450) 172 K/mm3 Today, 06:08 CHEMISTRY Potassium, (3.3-5.1) 3.7 mmol/L 04/05/25, 11:33 Sodium, (133-145) 139 mmol/L 04/05/25, 11:33 Magnesium, (1.5-2.2) 1.6 mg/dL 04/05/25, 11:33 Phosphorus, (2.5-4.9) 2.8 mg/dL 03/13/14, 08:15 BUN, (4-19) 19 mg/dL 04/05/25, 11:33 Creatinine, (0.70-1.20) 0.90 mg/dL 04/05/25, 11:33 Glucose, (70-99) 111 mg/dL H 04/05/25, 11:33 POC Glucose, (74-106) 166 mg/dL H Today, 06:20 TSH, (0.358-3.74) 1.96 uIU/mL 12/30/17, 10:27 COAG PT, (11.7-14.9) 12.5 SECONDS 08/12/23, 12:39 Pre-Assessment Diagnosis/Proposed Procedure Planned Operative Procedure(s): (B) ERAS, Hysterectomy,Total Vaginal, Bilateral Salpingectomy ANTERIOR/POSTERIOR REPAIR & POSSIBLE BILATERAL SSLF WITH DERMIS, POSSIBLE MID URETHERAL SLING & CYSTOSCOPY, BILATERAL URETERAL CATHETERIZATION Anesthesia History Anesthesia History - county health officer: Anesthesia History - county health officer Hx Hospitalization No 04/01/25 09:25 Any Problems With Anesthesia No 04/01/25 09:25 Cholinesterase deficiency No 04/01/25 09:25 You/Your Family Experience No 04/01/25 09:25 fever (hyperthermia) with Relationship Recent Exposure to Contagious No 11/30/20 06:19 Disease Does patient have nerve No 04/01/25 09:25 stimulator Patient instructed to have device shut off --Does patient have Pacemaker No 04/15/25 06:17 or ICD? When Was Last Pacemaker Check QUESTION #4 FULL TEXT: You/Your Family Experience fever (hyperthermia) with Anesthesia Last Oral Intake Last Oral intake: Last Oral Intake NPO since 04:00 04/15/25 06:17 Meds taken in AM with sips of No 04/15/25 06:17 water? Meds patient instructed to take am of surgery PONV PONV - county health officer: PONV - county health officer Female Yes 04/01/25 09:25 HX of Motion Sickness Yes 04/01/25 09:25 HX of N/V After Surgery No 04/01/25 09:25 Non-Smoker Yes 04/01/25 09:25 Duration of Surgery greater Yes 04/01/25 09:25 than 60 minutes Number of Risk Factors 4 04/01/25 09:25 PONV Score Severe Risk 04/01/25 09:25 Height & Weight Height & Weight: Anesthesia: Height & Weight Height 5 ft 2 in 04/15/25 06:17 Weight: 95 kg 04/15/25 06:17 Body Mass Index (BMI) 38.2 04/15/25 06:17 Respiratory Assessment Respiratory Assessment - county health officer: Respiratory Tract Infection Hx - county health officer Hx Respiratory Tract Infection No 04/01/25 09:25 STOP Sleep Apnea STOP Sleep Apnea - county health officer: STOP Sleep Apnea - county health officer Hx Hypertension Yes 04/01/25 09:25 Hx Sleep Apnea No 04/01/25 09:25 CPAP No 11/30/20 08:07 BIPAP No 04/27/18 11:57 Do you snore loudly (louder No 04/01/25 09:25 than talking or can be heard Do you often feel tired/ No 04/01/25 09:25 fatigued/ sleepy during daytime? Has anyone observed you stop No 04/01/25 09:25 breathing during sleep? STOP Results Negative 04/01/25 09:25 QUESTION #5 FULL TEXT : Do you snore loudly (louder than talking or can be heard through closed doors)? Tobacco Use History Tobacco Use History - county health officer: Tobacco Use History - county health officer Tobacco Use Non-smoker 11/27/20 10:28 Smoking Status Former smoker 04/01/25 09:25 Hx Tobacco Use No 04/01/25 09:25 Years Smoking Packs Smoked per Day Smoking Cessation Date was Yes - quit smoking within 15 04/01/25 09:25 within the last 15 years years Hx Smoking Cessation Date 06/14/15 04/01/25 09:25 Hx Smoking Cessation No 04/01/25 09:25 Counseling Hematologic Medial History Hematologic Hx - county health officer: Hematologic Medical Hx - insurance instructor Hx of Blood Transfusion No 04/01/25 09:25 Hx of Transfusion in last 3 No 04/01/25 09:25 Months Date of Last Transfusion (if within last 3 months) Ever experience any problems No 04/01/25 09:25 with transfusion(s)? Specify any problems Hx of Preganancy in last 3 N/A 04/01/25 09:25 Months Nurse Filling Out Transfusion NBUCHER 04/01/25 09:25 & Questions: Date: 04/01/25 04/01/25 09:25 Time: :04/01/25 09:25 Patient unable to answer at this time (ie. confused, unrespo /Reproduction History /Reproductive History - county health officer: /Reproductive Hx- county health officer Hx Now No 04/01/25 09:25 Gestational Age (in weeks): EDC: Hx Hx Para Hx Section SAB No 04/05/25 13:17 Active Medications Active Medications: Current Medications Generic Name Dose Route Start Last Admin Trade Name Freq PRN Reason Stop Dose Admin Acetaminophen 1,000 mg 04/15/25 07:30 04/15/25 06:28 Acetaminophen 500 Mg Tablet PO 04/15/25 07:31 1,000 mg PREOP ONE Administration Gabapentin 600 mg 04/15/25 07:30 04/15/25 06:28 Gabapentin 600 Mg Tablet PO 04/15/25 07:31 600 mg PREOP ONE Administration Lactated Ringer's 1,000 mls @ 40 mls/hr 04/15/25 07:30 04/15/25 06:14 IV 40 mls/hr .Q25H CHARAN Administration Lactated Ringer's 1,000 mls @ 70 mls/hr 04/15/25 07:30 IV .[id number] CHARAN Cefotetan Disodium 2 gm/ 100 mls @ 200 mls/hr 04/15/25 07:30 Sodium Chloride IV 04/15/25 07:59 INTRAOP ONE Magnesium Sulfate 2 gm/ 104 mls @ 208 mls/hr 04/15/25 07:30 04/15/25 06:29 Dextrose IV 04/15/25 07:59 Infused PREOP ONE Infusion Insulin Human Lispro 0 unit 04/15/25 07:30 Insulin Lispro 100 Unit/Ml Insuln.Pen SC Q4H PRN PRN BG >/= 180, SEE PROTOCOL Protocol Ondansetron HCl 4 mg 04/15/25 07:30 Ondansetron 4 Mg/2 Ml Vial IV 04/15/25 07:31 INTRAOP ONE Scopolamine HBr 1 patch 04/15/25 07:30 04/15/25 06:28 Scopolamine 1mg/72hr Patch TD 04/15/25 07:31 1 patch PREOP ONE Administration PFSH Medical History Post-menopausal Diabetes Arthritis History of echocardiogram Urge incontinence Nocturia Overactive bladder Vaginal atrophy IPMN (intraductal papillary mucinous neoplasm) NAFLD (nonalcoholic fatty liver disease) Gall stones Carotid stenosis Elevated alkaline phosphatase level Wears glasses Wears dentures High cholesterol Gastric reflux Former smoker Leg cramps GERD (gastroesophageal reflux disease) Hyperlipidemia Hypertension Home Medications ?Medication ?Instructions ?Recorded ?Last Taken ?Type losartan 100 mg tablet 100 mg PO DAILY 10/29/21 04/15/25 History hydrochlorothiazide 12.5 mg capsule 12.5 mg PO DAILY 02/05/22 04/14/25 History atorvastatin 40 mg tablet 40 mg PO QHS 10/21/22 04/14/25 History metformin 500 mg tablet 500 mg PO BID 90 days #180 tabs 08/12/23 04/14/25 Rx pantoprazole 40 mg tablet,delayed 40 mg PO DAILY 1 month #30 tabs 11/18/23 04/15/25 Rx release ursodiol 300 mg capsule 300 mg PO BID liver fibrosis #180 01/08/24 04/14/25 Rx caps estradiol 0.01% (0.1 mg/gram) 1 vaginal 3XW 04/05/25 04/14/25 History vaginal cream Allergy/AdvReac Type Severity Reaction Status Date / Time aspirin Allergy Itching Verified 04/15/25 06:12 codeine Allergy swells up Verified 04/15/25 06:12 hydrocodone Allergy diaphoretic, Verified 04/15/25 06:12 trouble breathing ibuprofen Allergy Hives Verified 04/15/25 06:12 lisinopril AdvReac Intermediate cough Verified 04/15/25 06:12 Family History Mother Diabetes Hypertension Cancer unknown Father Cancer unknown Sister Cancer Brain Brother Cancer unknown Surgical History History of D&C History of esophagogastroduodenoscopy (EGD) (~02/09/18) History of left knee surgery Hx laparoscopic cholecystectomy Social History number of children: 2 current occupational status: employed current occupation: [employer] Smoking Status: Former smoker alcohol intake: never substance use type: does not use what type of physical activity do you participate in: none additional social history: - Tony Review of Systems (Anesthesia) ROS Narrative System reviewed and no additional complaints, except as documented.
--- NOTE | 2025-04-15 07:03 | PCM.HP.BLA ---
History and Physical Date of Admission: 04/15/25 Intake Vital Signs 10/29/2509:40 03/22/2513:43 04/05/2513:11 Height 5 ft 5 in 5 ft 5 in 5 ft 5 in Weight: 208 lb 4 oz 205 lb 8 oz BMI 34.6 34.2 BP 131/70 H 149/83 H Pulse 61 Intake Visit Reasons: CANDY Schwartz Budget Analyst Required: No Is patient in pain?: Yes (soreness from fall 3 days ago) Allergies aspirin Allergy (Verified 04/05/25 13:13) Itching codeine Allergy (Verified 04/05/25 13:13) swells up hydrocodone Allergy (Verified 04/05/25 13:13) diaphoretic, trouble breathing ibuprofen Allergy (Verified 04/05/25 13:13) Hives lisinopril Adverse Reaction (Intermediate, Verified 04/05/25 13:13) cough Medications ?Medication ?Instructions ?Recorded ?Confirmed ?Type losartan 100 mg tablet 100 mg PO DAILY 10/29/21 04/05/25 History hydrochlorothiazide 12.5 mg capsule 12.5 mg PO DAILY 02/05/22 04/05/25 History atorvastatin 40 mg tablet 40 mg PO QHS 10/21/22 04/05/25 History metformin 500 mg tablet 500 mg PO BID 90 days #180 tabs 08/12/23 04/05/25 Rx pantoprazole 40 mg tablet,delayed 40 mg PO DAILY 1 month #30 tabs 11/18/23 04/05/25 Rx release ursodiol 300 mg capsule 300 mg PO BID liver fibrosis #180 01/08/24 04/05/25 Rx caps estradiol 0.01% (0.1 mg/gram) 1 vaginal 3XW 04/05/25 04/05/25 History vaginal cream Is last menstrual period known: No Post menopausal: Yes Patient : No : No PFSH Medical History Post-menopausal Diabetes Arthritis History of echocardiogram Urge incontinence Nocturia Overactive bladder Vaginal atrophy IPMN (intraductal papillary mucinous neoplasm) NAFLD (nonalcoholic fatty liver disease) Gall stones Carotid stenosis Elevated alkaline phosphatase level Wears glasses Wears dentures High cholesterol Gastric reflux Former smoker Leg cramps GERD (gastroesophageal reflux disease) Hyperlipidemia Hypertension Surgical History History of D&C History of esophagogastroduodenoscopy (EGD) (~02/09/18) History of left knee surgery Hx laparoscopic cholecystectomy Family History Mother Diabetes Hypertension Cancer unknown Father Cancer unknown Sister Cancer Brain Brother Cancer unknown Social History number of children: 2 current occupational status: employed current occupation: [employer] Smoking Status: Former smoker alcohol intake: never substance use type: does not use what type of physical activity do you participate in: none additional social history: - Tony HPI CANDY Ayala Combo Details: KEMAL SALGADO is a 69 year old who presents for preop visit. she has vaginal prolapse and uterine prolapse. she has felt a bulge and feels it going in and out over the last few months increasing. she feels it when she wipes, feels increased discharge, does go in when she stands up. Female Reproductive History Questions: metrorrhagia: No, dyspareunia: No and PCB: No Menopausal Symptoms: No night sweats History 2 Elective abortions Hx Para 2 Spontaneous abortions Hx # Term Pregnancies Ectopic pregnancies Hx # Pregnancies Multiple births # of living children 1 Past Pregnancies Del. Date Name GA/Weeks Outcome Route Bth Weight Infant Gen Labor Lgth Anesthesia Del Locatn Provider FOB Unknown 1978 Tony Unknown 1979 Charla () ROS Const Constitutional: Reports system reviewed and no additional complaints, except as documented; Denies fatigue, headache(s) or night sweats ENT ENT: Reports system reviewed and no additional complaints, except as documented Cardio Card: Denies chest pain Resp Resp: Denies cough or dyspnea GI GI: Denies abdominal pain, bloating, change in stool character, constipation, fecal incontinence, nausea or vomiting : Reports prolapse symptoms, urinary incontinence and vaginal dryness; Denies nipple discharge, pelvic pain, sexual dysfunction, urinary frequency, urinary urgency, vaginal discharge, vaginal odor or vaginal pruritus Musc Musc: Reports back pain; Denies arthralgias or muscle weakness Skin Skin/Breast: Denies alopecia, change in hair, dry skin, breast mass, breast pain, breast skin changes or nipple discharge Neuro Neuro: Reports system reviewed and no additional complaints, except as documented Psych Psych: Denies anxiety or depression Endo Endo: Denies cold intolerance, excessive sweating, heat intolerance or polydipsia Brenton/Lymph Hematologic/Lymphatic: Denies easy bleeding, Denies easy bruising and Denies lymphadenopathy Exam Const General: cooperative, healthy appearing, comfortable, no acute distress and well developed Orientation: alert [facility] Head: normal to inspection, normocephalic and atraumatic Ears: hearing grossly normal bilaterally and external ears normal Nose: external nose normal and nares normal Face and sinus: normal facial exam Neck Neck: normal visual inspection, full ROM, no lymphadenopathy and trachea midline Thyroid: thyroid normal Chest Chest palpation & inspection: normal inspection of the chest Breast inspection: normal inspection of the breasts, normal inspection of the axillae, abnormal inspection of the axilla and abnormal inspection of the breast Resp Effort & Inspection: normal respiratory effort Auscultation: clear to auscultation bilaterally Cardio Rate: regular rate Rhythm: regular rhythm Heart Sounds: S1 normal and S2 normal GI Inspection: normal to inspection and non-distended Palpation: soft, no hepatosplenomegaly, no hepatomegaly, not rigid and nontender General: bladder normal to palpation External Female Exam: abnormal external appearance (atrophic introitus), normal appearance of the urethra and no lesions Urethra: normal appearance of the urethra Speculum Exam - Vagina: abnormal appearance of the vagina, normal vaginal discharge, vagina atrophic and no lesions Speculum Exam - Cervix: normal appearance of the cervix Bimanual Exam- Vagina & Uterus: normal bimanual exam, uterine size normal, bladder normal to palpation, uterine shape normal, uterine mobility normal and non-tender Bimanual Exam- Adnexa, other: normal adnexae, no masses, rectocele, cystocele and vaginal apex descent Pelvic Support: cystocele, rectocele and vaginal apex descent Musc Other: gross motor intact no deficits, full bilateral strength Skin General: no rashes or lesions noted and atrophy Neuro General: patient alert, patient awake, moves all extremities and no focal motor deficits Motor: muscle tone normal throughout Extrem General: normal to inspection and no pedal edema Psych Appearance: grossly normal Mental Status: mental status grossly normal Affect: normal affect Speech and Movement: speech and movement normal Coding Level of Care Code No Charge Diagnoses Incomplete uterovaginal prolapse N81.2 Assessment and Plan Assessment and Plan (1) Incomplete uterovaginal prolapse: Status: Acute Comment: plan TVHBS combo case with Riddhi. grade IV uterine prolapse Plan After discussing the patient's diagnosis and treatment plan options, patient wishes to proceed with surgical management. I have discussed with the patient the risks, benefits, and alternatives of the procedure which include but are not limited to risks of anesthesia, bleeding, infection, possible damage to bowel, bladder, or surrounding vasculature which could lead to additional surgery to evaluate any complications. Patient agrees to procedure and wishes to proceed. ACOG/uptodate references given for additional information regarding procedure. UPDATE- I have seen the patient and performed any clinically relevant updates to the history and physical exam. Ina Leon MD
--- NOTE | 2025-04-15 07:21 | PCM.HP.BLA ---
History and Physical Date of Admission: 04/15/25 Date of Service: 03/22/25 MR#: [id number] Acct: [id number] Name: KEMAL SALGADO Rep #: [id number] : 1955 Provider: Dr. Randa Ayala MD Age/Sex: 69/F Location: [facility] [place] Status: Signed Intake Vital Signs 10/29/2509:40 03/22/2513:43 Height 5 ft 5 in 5 ft 5 in Weight: 208 lb 4 oz BMI 34.6 BP 131/70 H Pulse 61 Intake Visit Reasons: preop H&P UC and sign consent/UDS results Chief Complaint: preoperative urine and consent Director [facility] Required: No Accompanied by: Self Is patient in pain?: No Allergies aspirin Allergy (Verified 03/22/25 13:43) Itching codeine Allergy (Verified 03/22/25 13:43) swells up hydrocodone Allergy (Verified 03/22/25 13:43) diaphoretic, trouble breathing ibuprofen Allergy (Verified 03/22/25 13:43) Hives lisinopril Adverse Reaction (Intermediate, Verified 03/22/25 13:43) cough Medications ?Medication ?Instructions ?Recorded ?Confirmed ?Type losartan 100 mg tablet 100 mg PO DAILY 10/29/21 03/22/25 History hydrochlorothiazide 12.5 mg capsule cap 02/05/22 03/22/25 History atorvastatin 40 mg tablet 40 mg PO QHS 10/21/22 03/22/25 History metformin 500 mg tablet 500 mg PO BID 90 days #180 tabs 08/12/23 03/22/25 Rx pantoprazole 40 mg tablet,delayed 40 mg PO DAILY 1 month #30 tabs 11/18/23 03/22/25 Rx release ursodiol 300 mg capsule 300 mg PO BID liver fibrosis #180 01/08/24 03/22/25 Rx caps Have you fallen in the past year?: No PFSH Medical History (Updated 03/22/25 @ 21:[address] Randa Ayala MD) Urge incontinence Nocturia Overactive bladder Vaginal atrophy IPMN (intraductal papillary mucinous neoplasm) NAFLD (nonalcoholic fatty liver disease) Gall stones Carotid stenosis Elevated alkaline phosphatase level Wears glasses Wears dentures High cholesterol Gastric reflux Former smoker Leg cramps GERD (gastroesophageal reflux disease) Hyperlipidemia Hypertension Surgical History History of esophagogastroduodenoscopy (EGD) (~02/09/18) History of left knee surgery Hx laparoscopic cholecystectomy Family History Mother Diabetes Hypertension Cancer unknown Father Cancer unknown Sister Cancer Brain Brother Cancer unknown Social History number of children: 2 current occupational status: employed current occupation: [employer] Smoking Status: Former smoker alcohol intake: never substance use type: does not use what type of physical activity do you participate in: none additional social history: - Tony [facility] Urology Chief Complaint: preoperative urine and consent Details: KEMAL SALGADO, is a 69 F. The patient is here for preoperative history and physical prior to anterior and posterior repair, possible bilateral sacrospinous ligament fixation with dermis, cystoscopy with bilateral ureteral catheterization. There are no new symptoms since the last visit. We reviewed the urodynamics study together. She does not have stress incontinence and had none with pessary in place. There is one questionable episode of stress incontinence without the pessary. She did not recall this. We discussed the options, she would prefer to avoid sling if possible. The procedure, recovery and expectations were explained. The risks, benefits and alternatives were discussed, including but not limited to, the risks of anesthesia, bleeding, infection, injury, pain and the need for further intervention. We have discussed the risk of exposure to and/or potential harm posed by the COVID-19 virus with having a surgery/procedure at this time. A joint decision was made at this time to proceed with the scheduled surgery/procedure as indicated on the consent form. ROS Const Constitutional: No chills, fatigue, fever(s), headache(s), night sweats, weakness, weight change, abnormal sleep pattern or change in appetite Eyes Eyes: No change in vision ENT ENT: No headache(s) or dry mouth Resp Respiratory: No cough, chest congestion, shortness of breath or wheezing Cardio Cardiology: Positive for other (No chest pain.); No shortness of breath, irregular heart rhythm or lightheadedness Gastro GI: Positive for other (No nausea.); No abdominal pain, change in bowel habits, constipation, diarrhea or vomiting Musc Musculoskeletal: No abnormal gait Skin Skin: No yellowing of the eye, lesions, itchy eyes, rash or skin ulcer Neuro Neurology: No abnormal gait, confusion, dizziness, weakness, headache(s) or memory loss Psych Psychiatric: No abnormal sleep pattern, No change in appetite, No confusion and No memory loss Endo Endocrine: No fatigue, increased thirst/drinking or weight change Aller/Imm Allergy/Immunologic: No itchy eyes or wheezing Brenton/Lymp Hematologic/Lymphatic: No easy bleeding, easy bruising or enlarged lymph nodes Exam Const General: cooperative, healthy appearing, comfortable and no acute distress [facility] Head: normocephalic and atraumatic Ears: hearing grossly normal bilaterally and external ears normal Nose: external nose normal Eyes General: appearance normal, both eyes and all related structures Neck Neck: normal visual inspection and trachea midline Chest Chest palpation & inspection: normal inspection of the chest Resp Effort & Inspection: normal respiratory effort, able to speak in complete sentences and symmetric chest movement Cardio Rate: regular rate GI Inspection: normal to inspection Palpation: soft and nontender General: No CVA tenderness Skin General: no rashes or lesions noted Neuro General: patient alert, patient awake, patient oriented x3 and CN's II-XI intact bilaterally Extrem General: normal to inspection Psych Appearance: grossly normal and well kempt Mental Status: mental status grossly normal Results POC UA Auto w/o Microscopy Office Urine Color ? Last Edit by Maria Eugenia Stuart on 03/22/25 13:46 Office Urine Clarity ? Last Edit by Maria Eugenia Stuart on 03/22/25 13:46 Office Urine Glucose Negative Last Edit by Maria Eugenia Stuart on 03/22/25 13:46 Office Urine Ketones Negative Last Edit by Maria Eugenia Stuart on 03/22/25 13:46 Office Urine Bilirubin Negative Last Edit by Maria Eugenia Stuart on 03/22/25 13:46 Office Urine Urobilinogen Negative Last Edit by Maria Eugenia Stuart on 03/22/25 13:46 Off Ur Spec [place] 1.015 Last Edit by Maria Eugenia Stuart on 03/22/25 13:46 Office Urine pH 6 Last Edit by Maria Eugenia Stuart on 03/22/25 13:46 Office Urine Protein Negative Last Edit by Maria Eugenia Stuart on 03/22/25 13:46 Office Urine Blood Negative Last Edit by Maria Eugenia Stuart on 03/22/25 13:46 Office Urine Blood Hemolyzed Negative Last Edit by Maria Eugenia Stuart on 03/22/25 13:46 Office Urine Nitrate Negative Last Edit by Maria Eugenia Stuart on 03/22/25 13:46 Off Ur Leukocytes Negatve Last Edit by Maria Eugenia Stuart on 03/22/25 13:46 Coding Level of Care Code Off vis,est,level 4 Diagnoses Incomplete uterovaginal prolapse N81.2 Vaginal atrophy N95.2 Overactive bladder N32.81 Nocturia R35.1 Urge incontinence N39.41 Assessment and Plan Assessment and Plan (1) Incomplete uterovaginal prolapse: Status: Acute Comment: plan TVHBS combo case with Riddhi. grade IV uterine prolapse (2) Vaginal atrophy: Status: Acute (3) Overactive bladder: Status: Acute (4) Nocturia: Status: Acute (5) Urge incontinence: Status: Acute Orders: Orders POC UA Auto w/o Microscopy Today N81.2 - Incomplete uterovaginal prolapse Basic Metabolic Profile (BMP) Today K74.00 - Hepatic fibrosis, unspecified, N81.2 - Incomplete uterovaginal prolapse CBC W/Diff, Automated Today K74.00 - Hepatic fibrosis, unspecified 12 Lead EKG performed by [facility] Today K74.00 - Hepatic fibrosis, unspecified Plan urine culture vaginal estrogen cream BMP, CBC, EKG proceed with intervention Clinical Quality Measures Falls Risk Screening/Assistive Devices Have you fallen in the past year?: No 03/22/25 [id number] <Electronically signed by Randa Ayala MD> Date Randa Ayala MD
[2025-04-15] MEDS: Midazolam 2 MG/2 ML Syringe IV (07:30)
--- NOTE | 2025-04-15 07:30 | UT_PTH ---
PATIENT: KEMAL SALGADO LOC: MS3 U#:[id number] AGE/SX: 69/F ROOM: [facility] [place]04[place]15/[address]: Dr. Ina Leon MD : [id number] BED: 1 DIS: 04/16/2025 SPEC #: [id number] RECD: 04/15/25 11:22 STATUS: CARO REQ #: [id number] SONJA: 04/15/25 07:[address]: Ina Leon DEPT: SURGICAL PATHOLOGY RECD BY: Constantine Núñez ENTERED: 04/15/25 13:42 SP TYPE: UTERUS OTHR DR: MD Dr. Paula Little DO Tissues: A - Uterus, NOS Procedures: Surgery Specimen Level V HEADER OPERATION: ERAS, hysterectomy, total vaginal PRE-OP DIAGNOSIS: Incomplete uterovaginal prolapse, vaginal atrophy, overactive bladder, nocturia, urge incontinence TISSUE SUBMITTED: A- Uterus, cervix MICROSCOPIC DIAGNOSIS A. Uterus, cervix, total vaginal hysterectomy: * Cervix: hyperkeratosis, squamous metaplasia. * Endometrium: proliferative type, endometrial polyp x2. * Myometrium: adenomyosis, adenomyoma, leimyomata (1.0 cm). MICROSCOPIC DESCRIPTION Slides are reviewed. GROSS DESCRIPTION A. Received in formalin labeled with the patient's name and date of . Designated as uterus, cervix is a 60 g, 8.3 x 4.6 x 2.9 cm uterus devoid of attached adnexa. The serosa is edematous with dense, patchy adhesions. The attached cervix is gallardo and measures 3.1 x 2.5; the 1.8 cm os is probe patent. The specimen is inked as follows: Imjvdiuk-qaiszPpfokkozq-yshjnQwanggxpsek-orange. Opening reveals a 5.9 x 2.8 cm endometrial canal lined by gallardo to red, somewhat granular to lush endometrium which measures up to 0.4 cm thick. There is a 0.4 x 0.3 cm gallardo-white nodule in the lower uterine segment, and a 2.1 x 2.0 x 0.6 cm pink-red, rubbery polyp within the fundus involving the anterior and posterior endometrium, and grossly appears superficial. Adjacent to the fundal polyp is a 0.7 x 0.5 x 0.2 cm gallardo-pink apparent polyp (anterior). Sectioning reveals subserosal and intramural mural leiomyomas, 1.0 cm in greatest dimension. The myometrium is gallardo-pink and congested near the serosal surface, and measuring up to 1.4 cm thick. Government Affairs Manager sections are submitted in 11 cassettes as follows: A1: Anterior/posterior cervixA2: Anterior lower uterine segment noduleA3: Intramural leiomyoma (largest)A4: Anterior endomyometriumA5: Posterior endomyometriumA6: Anterior apparent polyp, adjacent to fundus polypA7-A11: Fundal polyp DE 04/15/2025 CPT:92364
[2025-04-15] MEDS: Lidocaine 1% (5 ml sdv) 5 ML Vial IV (07:37)
[2025-04-15] MEDS: fentaNYL 100 MCG/2 ML Ampul 200 MCG IV (08:00)
--- NOTE | 2025-04-15 08:41 | DCINST_ITS ---
Discharge Instructions Diet Discharge Diet: No restrictions Activity Discharge Activity: May Not Drive (for 2 weeks) and May Shower May resume sexual activity in: 8 weeks Lifting Restrictions: 5 pounds Additional Activity Instructions:: No swimming, hot tubs or tub bathing, no vacuuming or walking the dog, no strenuous activity or exercise Dressing / Incision Call your doctor if your incision/area has: Continuous Slow Oozing, Sudden Increased Bleeding, Increased Pain/ Swelling, Increased Redness and Foul Smelling Discharge Call your doctor if you observe: Fever of 101 or Higher, Inability to urinate and Inability to have a bowel movement Follow Up Care Please Follow Up With: Randa Ayala MD Test Results: Test results from this visit will be discussed in further detail at your follow- up appointment, if applicable. Discharge Plan Admission Attending Provider: Ina Leon Primary Care Provider: Paula Barrera Consulting Providers: Randa Ayala Instructions Print Language: Guatemalan Discharge Orders/Prescriptions Prescriptions: New cephalexin 500 mg capsule 500 mg PO Q12 3 Days Qty: 6 0RF ondansetron 4 mg tablet,disintegrating 4 mg PO Q8H PRN (Reason: nausea and vomiting) Qty: 10 0RF tramadol 50 mg tablet 50 mg PO Q8H PRN (Reason: pain) 3 Days Qty: 10 0RF Continued losartan 100 mg tablet 100 mg PO DAILY atorvastatin 40 mg tablet 40 mg PO QHS metformin 500 mg tablet 500 mg PO BID 90 Days Qty: 180 1RF pantoprazole 40 mg tablet,delayed release (DR/EC) 40 mg PO DAILY 30 Days Qty: 30 4RF Rx Instructions: 1 hour before breakfast estradiol 0.01 % (0.1 mg/gram) cream 1 vaginal 3XW hydrochlorothiazide 12.5 mg capsule 12.5 mg PO DAILY Patient Comments: Take 1 capsule by mouth once daily. ursodiol 300 mg capsule 300 mg PO BID Qty: 180 3RF Other Ambulatory Orders: 12 Lead EKG (Routine) Location: None Selected Ordered By: Dr. Ina Leon Referrals / Follow Up: Paula Barrera DO [Primary Care Provider, Internal Medicine] Disposition Disposition (needs filled in before D/C Order can be placed): Home, Self Care
--- NOTE | 2025-04-15 08:44 | PCM.OPRPT ---
Operative Report (Standard) Operative Information Date of Procedure: 04/15/25 Pre-Operative Diagnosis: Cystocele, rectocele, uterine prolapse Post-Operative Diagnosis: Rectocele, uterine prolapse Surgery/Procedure Performed: Posterior repair, bilateral sacrospinous ligament fixation, cystoscopy with bilateral ureteral catheterization commercial real estate broker: Yes Interior Painter: Monserrat Enamorado Tasks completed by first aid officer: Retracting Type of Anesthesia: General RN Documented Start/Stop Times: Operation Date: 04/15/25 07:30 Case Time Into Pre-Op 04/15/25 06:16 Out of Pre-Op 04/15/25 07:25 Anesthesia Start 04/15/25 07:30 Into Room 04/15/25 07:30 Procedure Start 04/15/25 08:01 Procedure End 04/15/25 10:52 Anesthesia End 04/15/25 11:01 Out of Room 04/15/25 11:01 Procedure Start Time: 09:15 Procedure Stop Time: 10:52 Select all DRAINS/GRAFTS/IMPLANTS that apply: Graft Graft details: Dermis Estimated Blood Loss: 50 cc Specimen collected: No Description of surgery: The patient is a 69-year-old female with significant prolapse who presents for surgical intervention. Informed consent was obtained. The patient was taken to the operating room and placed on the operating room table. Anesthesia monitored the head, neck, airway, IV access and vital signs throughout the case. Once anesthesia was appropriately ministered, she was placed into dorsolithotomy position was prepped and draped in usual sterile fashion. She then underwent a hysterectomy, please see Dr. Leon's operative report for full details. On evaluation following closure of the cuff line, the decision was made to proceed with a posterior repair with placement of dermis and sacrospinous ligaments posteriorly. The posterior vaginal wall was isolated and injected submucosally with vasopressin for hydrostatic dissection and hemostatic control. A midline incision was made. Sharp and blunt dissection was performed bilaterally until the apex was reached and the sacrospinous ligaments were identified and freed from surrounding tissues bilaterally. A saffron device was then utilized to place an Ethibond suture into each sacrospinous ligament. The suture was then brought through the dermis and sutured into position. The suture was then brought through the vaginal mucosa in full-thickness fashion and was tied into position effectively reducing the apical prolapse. The dermis was trimmed to length and sutured bilaterally to the rectovaginal fascia. The perineal body was reconstructed using 2-0 Vicryl interrupted sutures. At this time the vaginal mucosa was closed over the dermis with running interlocking 2-0 Vicryl. On examination at this time there was no anterior defect. She was then taken out of Trendelenburg and placed in a flat supine position. The Victoria catheter was removed and the cystoscope was inserted under direct visualization into the urinary bladder. The bladder mucosa was visualized in its entirety revealing no evidence of injury, mass, foreign body. Bilateral ureteral orifices were identified and each 1 individually was intubated carefully with a 5 Romansh whistle-tip catheter. The catheter was advanced easily without evidence of injury or obstruction to 20 cm bilaterally. At this time the whistle-tip catheter and the cystoscope were removed and the Victoria catheter was replaced. 10 cc of's were placed within the balloon. The vagina was then packed with vaginal packing and estrogen cream. She was awakened and taken to the recovery room in good condition. There were no complications during the procedure. Surgical Findings: no anterior defect appreciated after apical repair. Complications Complications: No Admit VTE Documentation VTE Present on Admission: Yes VTE Mechan Device Prophylaxis: SCD's VTE Pharm Prophylaxis ordered?: Yes
[2025-04-15] MEDS: Lactated Ringers 2,000 ML 2000 ML IV (09:39)
[2025-04-15] MEDS: Estrogens,Conj. 1 Tube 1 DOSE (10:48)
--- NOTE | 2025-04-15 11:07 | OP.PCM_ITS ---
Multi Select Codes Urinary/Genital Urinary/Genital CPT Codes: 73737 TVH <250 gr uterus Operative Report (Standard) Operative Information Date of Procedure: 04/15/25 Pre-Operative Diagnosis: prolapse Post-Operative Diagnosis: same plus scarring at the top of the uterus and bilateral adnexa Surgery/Procedure Performed: TVH laboratory technical specialist: Yes Wildlife Veterinarian: Monserrat Enamorado Tasks completed by assistant distribution manager: Opening & closing and Retracting Type of Anesthesia: General RN Documented Start/Stop Times: Operation Date: 04/15/25 07:30 Case Time Into Pre-Op 04/15/25 06:16 Out of Pre-Op 04/15/25 07:25 Anesthesia Start 04/15/25 07:30 Into Room 04/15/25 07:30 Procedure Start 04/15/25 08:01 Procedure End 04/15/25 10:52 Anesthesia End 04/15/25 10:59 Out of Room 04/15/25 10:59 Procedure Start Time: 08:01 Procedure Stop Time: 10:52 Select all DRAINS/GRAFTS/IMPLANTS that apply: Drains (caballero) Drain details: clear urine Estimated Blood Loss: 100 Specimen collected: Yes Description of specimen(s) removed: uterus Description of surgery: Patient was taken to the operating room and was placed under general anesthesia was prepped and draped in normal sterile fashion in the dorsal lithotomy position. Preoperative antibiotics and SCDs and Caballero catheter was placed inside the bladder. Weighted speculum was placed in the vagina and the anterior and posterior lip of the cervix was grasped with 2 Melanie clamps and circumferentially injected with dilute vasopressin. A circumferential incision was made with a scalpel and the posterior cul-de-sac was entered into sharply and a longneck speculum was placed. The anterior cul-de-sac was also dissected down and entered into sharply and the uterosacral ligaments were clamped cut and suture ligated bilaterally followed by the cardinal ligaments which were Clamped cut and suture ligated bilaterally with 0 Monocryl. The uterus serially descended and progressive bites were taken bilaterally up to the level of the utero-ovarian ligament bilaterally which was clamped transected and double ligated with 0 Monocryl suture and 0 Vicryl free tie. scarring of the top of the uterus was noted- filmy but a significant amount. the surrdoung area and bowel ere inspected and no injuries noted, small area of bleeding noted which resolved with pressure and surgiflow. Excellent hemostasis was noted overall. Posterior peritoneum was reapproximated with 2-0 Vicryl and a modified Walker stitch was placed through the posterior vaginal cuff and bilateral uterosacral ligaments across the posterior cul-de-sac skimming along to provide apical support to the vagina. The vagina was closed with [id number] 0 Vicryl pop offs including the posterior and anterior peritoneum in the reapproximation. Excellent hemostasis was noted. dr grace then began her portion. Surgical Findings: grade IV prolapse and scarring across the top of the uterus and bilateral adnexa Complications Complications: No
--- NOTE | 2025-04-15 11:07 | PCM.POST.ANE ---
Anesthesia: Postop Eval I Current Vital Signs Temperature: 97.0 F Pulse Rate: 86 Blood Pressure: 158/84 Respiratory Rate: 20 Pulse Ox: 98 Oxygen Delivery Method: Room Air Assessment Airway patent: Yes Spontaneous unlabored respirations: Yes Mental status: Awake and Calm nausea: No Vomiting: No Anesthesia Complication: No Fluid Hydration Crystalloid volume administer (ml): 1,700 Total IV fluid infused: 1,700 Progress Note Anesthesia document: Postop Eval 1 completed: Yes
--- NOTE | 2025-04-15 11:11 | PCM.DC ---
Discharge Instructions DC O2, CPAP, BIPAP needs Home O2 Discharge instructions: No Dressing / Incision Discharge Activity: Return to Normal Activity, May Not Drive (while taking narcotic pain medications.) and May Shower May resume sexual activity in: 8 weeks Additional Activity Instructions:: No swimming, hot tubs or tub bathing, no vacuuming or walking the dog, no strenuous activity or exercise Dressing / Incision Call your doctor if your incision/area has: Continuous Slow Oozing, Sudden Increased Bleeding, Increased Pain/ Swelling, Increased Redness and Foul Smelling Discharge Call your doctor if you observe: Fever of 101 or Higher, Inability to urinate and Inability to have a bowel movement Follow Up Care Please Follow Up With: Randa Ayala MD Test Results: Test results from this visit will be discussed in further detail at your follow-up appointment, if applicable. Discharge Plan Admission Attending Provider: Ina Leon Primary Care Provider: Paula Barrera Consulting Providers: Randa Ayala Instructions Print Language: South Korean Discharge Orders/Prescriptions Prescriptions: New cephalexin 500 mg capsule 500 mg PO Q12 3 Days Qty: 6 0RF ondansetron 4 mg tablet,disintegrating 4 mg PO Q8H PRN (Reason: nausea and vomiting) Qty: 10 0RF tramadol 50 mg tablet 50 mg PO Q8H PRN (Reason: pain) 3 Days Qty: 10 0RF Continued losartan 100 mg tablet 100 mg PO DAILY atorvastatin 40 mg tablet 40 mg PO QHS metformin 500 mg tablet 500 mg PO BID 90 Days Qty: 180 1RF pantoprazole 40 mg tablet,delayed release (DR/EC) 40 mg PO DAILY 30 Days Qty: 30 4RF Rx Instructions: 1 hour before breakfast estradiol 0.01 % (0.1 mg/gram) cream 1 vaginal 3XW hydrochlorothiazide 12.5 mg capsule 12.5 mg PO DAILY Patient Comments: Take 1 capsule by mouth once daily. ursodiol 300 mg capsule 300 mg PO BID Qty: 180 3RF Other Ambulatory Orders: 12 Lead EKG (Routine) Location: None Selected Ordered By: Dr. Ina Leon Referrals / Follow Up: Paula Barrera DO [Primary Care Provider, Internal Medicine] Disposition Disposition (needs filled in before D/C Order can be placed): Home, Self Care
--- NOTE | 2025-04-15 11:58 | POSTOPAN2_ITS ---
Anesthesia Postop Eval I Sum Postop Eval Completion status Anesthesia document: Postop Eval 1 completed: Yes Anesthesia Postop Eval I Summary Anesthesia Postop Eval I Summary: Anesthesia Postop Eval I: Assessment Summary Airway patent Yes 04/15/25 11:09 [email or web address] Spontaneous unlabored Yes 04/15/25 11:09 [email or web address] respirations Mental status Awake,Calm 04/15/25 11:09 [email or web address] nausea No 04/15/25 11:09 [email or web address] Vomiting No 04/15/25 11:09 [email or web address] Anesthesia Postop Eval I: Fluid Summary Crystalloid volume administer 1,700 04/15/25 11:09 [email or web address] (ml) Colloids volume administered ( ml) Blood Product volume administered (ml) Total IV fluid infused 1,700 04/15/25 11:09 [email or web address] Anesthesia Postop Eval I: Summary Notes Anesthesia Complication No 04/15/25 11:09 [email or web address] Anesthesia Complication Comment: Post-operative progress note Anesthesia: Postop Eval II Evaluation Mental status: Awake Pain Level: 0 nausea: No Vomiting: No
--- NOTE | 2025-04-15 11:58 | PCM.POSTANE2 ---
Anesthesia Postop Eval I Sum Postop Eval Completion status Anesthesia document: Postop Eval 1 completed: Yes Anesthesia Postop Eval I Summary Anesthesia Postop Eval I Summary: Anesthesia Postop Eval I: Assessment Summary Airway patent Yes 04/15/25 11:09 [email or web address] Spontaneous unlabored Yes 04/15/25 11:09 [email or web address] [email or web address] respirations Mental status Awake,Calm 04/15/25 11:09 [email or web address] [email or web address] nausea No 04/15/25 11:09 [email or web address] [email or web address] Vomiting No 04/15/25 11:09 [email or web address] [email or web address] Anesthesia Postop Eval I: Fluid Summary Crystalloid volume administer 1,700 04/15/25 11:09 [email or web address] (ml) Colloids volume administered ( ml) Blood Product volume administered (ml) Total IV fluid infused 1,700 04/15/25 11:09 [email or web address] [email or web address] Anesthesia Postop Eval I: Summary Notes Anesthesia Complication No 04/15/25 11:09 [email or web address] Anesthesia Complication Comment: Post-operative progress note Anesthesia: Postop Eval II Evaluation Mental status: Awake Pain Level: 0 nausea: No Vomiting: No
[2025-04-15] MEDS: Lactated Ringers 1,000 ML 100 ML IV ×2 (12:26→21:11)
[2025-04-15 13:00] LABS: Hematocrit 37.8 % (37-47); Hemoglobin 12.9 g/dL (12.0-15.0); Immature Granulocytes Count 0.070 X10^3/uL (0.0-0.0); Mean Corp Hgb Conc 34.1 g/dL (32-36); Mean Corpuscular Volume 98.4 fL (81-99); Mean Platelet Vol. 11.8 fl (6.2-12.0); NRBC Flagged by Analyzer 0 % (0-5); Platelet Count 173 K/mm3 (150-450); RBC Distribution Width CV 12.5 % (11.6-14.6); RBC Distribution Width SD 45.1 fl (35.1-43.9); Red Blood Count 3.84 M/mm3 (4.2-5.4); White Blood Count 9.7 K/mm3 (4.4-11.0)
[2025-04-15 13:22] LABS: Anion Gap 14 (5-15); BUN 13 mg/dL (4-19); BUN/Creat Ratio 14.5 RATIO (10-20); Calcium,Total 8.9 mg/dL (7.6-11.0); Carbon Dioxide 23.6 mmol/L (21.0-32.0); Chloride 101 mmol/L (98-108); Estimated Creatinine Clearance 63.75 ml/min (50-250); Glucose 171 mg/dL (70-99); Potassium 3.3 mmol/L (3.3-5.1)
[2025-04-16] VITALS (7 sets, daily range): BP systolic 110–150; BP diastolic 57–77; PULSE 63–84; RESP 16–18; TEMP 36.6–37.2; O2SAT 95–100
[2025-04-16] MEDS: Lactated Ringers 1,000 ML 100 ML IV (06:19)
--- NOTE | 2025-04-16 06:51 | PN.OBGYN_ITS ---
Subjective Subjective Patient doing well without complaints. Tolerating PO. Ambulating without difficulty. Denies chest pain, shortness of breath, calf pain/swelling, fevers, chills, lightheadedness. Objective Data Objective Data Vital Signs: Vital Signs Temp Pulse Resp BP Pulse Ox O2 Del Method O2 Flow Rate 98 F 70 16 140/70 H 96 Room Air 4 04/16/25 06:28 04/16/25 06:28 04/16/25 06:28 04/16/25 06:28 04/16/25 06:28 04/16/25 06:28 04/15/25 12:45 Oxygen Flow Rate (L/min) 4 Oxygen Delivery Method Room Air Weight: 213 lb Body Mass Index (BMI) 38.9 Intake & Output: Intake and Output for Last 24 Hours 04/14/25 04/15/25 04/16/25 23:59 23:59 23:59 Intake Total 3279 / 3279 913.33 / 913.33 Output Total 2230 / 3530 1925 / 1925 Balance 1049 / -251 -1011.67 / -1011.67 Lab / Micro Data 04/15/25 12:35 04/15/25 12:35 Labs: Laboratory Results - last 24 hr 04/15/25 05:50: WBC Cancelled, Corrected WBC Cancelled, RBC Cancelled, Hgb Cancelled, Hct Cancelled, MCV Cancelled, MCH Cancelled, MCHC Cancelled, RDW Std Deviation Cancelled, RDW Coeff of Cecille Cancelled, Plt Count Cancelled, MPV Cancelled, Immature Gran % (Auto) Cancelled, Neut % (Auto) Cancelled, Lymph % (Auto) Cancelled, Reeves % (Auto) Cancelled, Eos % (Auto) Cancelled, Baso % (Auto) Cancelled, Absolute Neuts (auto) Cancelled, Absolute Lymphs (auto) Cancelled, Total Counted Cancelled, Neutrophils % (Manual) Cancelled, Band Neutrophils % Cancelled, Lymphocytes % (Manual) Cancelled, Monocytes % (Manual) Cancelled, Eosinophils % (Manual) Cancelled, Basophils % (Manual) Cancelled, Metamyelocytes % Cancelled, Myelocytes % Cancelled, Promyelocytes % Cancelled, Blast Cells % Cancelled, Plasma Cell % (Manual) Cancelled, Other Cells % Cancelled, Nucleated RBC % Cancelled, Nucleated RBCs/100 WBC Cancelled, Differential Comment Cancelled, Diff Path Review Cancelled, Hypersegmented Neuts Cancelled, Atypical Lymphocytes Cancelled, Reactive Lymphocytes Cancelled, Smudge Cells Cancelled, Toxic Granulation Cancelled, Toxic Vacuolation Cancelled, Dohle Bodies Cancelled, Cristóbal Rods Cancelled, Platelet Estimate Cancelled, Plt Morphology Comment Cancelled, RBC Morphology Cancelled 04/15/25 05:50: RBC Morphology Cancelled, Polychromasia Cancelled, Hypochromasia Cancelled, Basophilic Stippling Cancelled, Anisocytosis Cancelled, Microcytosis Cancelled, Macrocytosis Cancelled, Spherocytes Cancelled, Sickle Cells Cancelled, Target Cells Cancelled, Tear Drop Cells Cancelled, Ovalocytes Cancelled, Stomatocytes Cancelled, [place] Bodies Cancelled, [place] Cells Cancelled, Bite Cells Cancelled, Crenated Cell Cancelled, Acanthocytes (Spur) Cancelled, Rouleaux Cancelled, Schistocytes Cancelled 04/15/25 12:35: WBC 9.7, RBC 3.84 L, Hgb 12.9, Hct 37.8, MCV 98.4, MCH 33.6 H, MCHC 34.1, RDW Std Deviation 45.1 H, RDW Coeff of Cecille 12.5, Plt Count 173, MPV 11.8, Immature Gran % (Auto) 0.700, Neut % (Auto) 87.8 H, Lymph % (Auto) 9.5 L, Reeves % (Auto) 1.7, Eos % (Auto) 0.2, Baso % (Auto) 0.1, Absolute Neuts (auto) 8.5 H, Absolute Lymphs (auto) 0.92, Nucleated RBC % 0, Sodium 139, Potassium 3.3, Chloride 101, Carbon Dioxide 23.6, Anion Gap 14, BUN 13, Creatinine 0.92, Estim Creat Clear Calc 63.75, Est GFR (MDRD) Non-Af 69, BUN/Creatinine Ratio 14.5, Glucose 171 H, Calcium 8.9 04/15/25 16:29: POC Glucose 169 H ROS Constitutional Constitutional: Reports systems reviewed and no addt'l complaints, except as documented Cardiovascular Cardiovascular: Reports systems reviewed and no addt'l complaints, except as documented Respiratory/Chest Respiratory/Chest: Reports systems reviewed and no addt'l complaints, except as documented Gastrointestinal Gastrointestinal: Reports systems reviewed and no addt'l complaints, except as documented Physical Exam Const alert, oriented x3 and no apparent distress HEENT Head and Scalp: atraumatic Resp normal respiratory effort GI soft to palpation and non-tender Assessment & Plan (1) Incomplete uterovaginal prolapse: COMMENT: plan TVHBS combo case with Riddhi. grade IV uterine prolapse (2) History of total vaginal hysterectomy (TVH): COMMENT: danny lazo uteirpepper scar tissue tubes not removed PLAN: Plan patient is s/p tvh POD 1 1. routine ERAS protocol postop care- increase ambulation, encourage oral intake and oral control of pain. lovenox and scds for dvt prophylaxis, patient stable for discharge to home.
[2025-04-16 08:09] LABS: Hematocrit 33.7 % (37-47); Hemoglobin 11.5 g/dL (12.0-15.0); Immature Granulocytes Count 0.050 X10^3/uL (0.0-0.0); Mean Corp Hgb Conc 34.1 g/dL (32-36); Mean Corpuscular Volume 97.1 fL (81-99); Mean Platelet Vol. 11.6 fl (6.2-12.0); NRBC Flagged by Analyzer 0 % (0-5); Platelet Count 148 K/mm3 (150-450); RBC Distribution Width CV 12.8 % (11.6-14.6); RBC Distribution Width SD 45.6 fl (35.1-43.9); Red Blood Count 3.47 M/mm3 (4.2-5.4); White Blood Count 10.9 K/mm3 (4.4-11.0)
[2025-04-16 09:30] LABS: Anion Gap 11 (5-15); BUN 13 mg/dL (4-19); BUN/Creat Ratio 14.5 RATIO (10-20); Calcium,Total 8.5 mg/dL (7.6-11.0); Carbon Dioxide 26.3 mmol/L (21.0-32.0); Chloride 102 mmol/L (98-108); Estimated Creatinine Clearance 68.06 ml/min (50-250); Glucose 128 mg/dL (70-99); Potassium 3.6 mmol/L (3.3-5.1)
== END 2025-04-16 18:09 | disposition home or self-care (01) ==
LOC: SDC 13:36 → MS3 13:36
PROVIDERS: Anesthesiology; Urology; Admitting Provider Obstetrics & Gynecology; PCP Internal Medicine; Referring Provider Obstetrics & Gynecology; Visit Provider Obstetrics & Gynecology
PROC: (CPT 58260; principal; 2025-04-15 07:10)
PROC: (CPT 57260; 2025-04-15 07:10)
DX: N81.2 Incomplete uterovaginal prolapse (principal); E11.9 Type 2 diabetes mellitus without complications; Z87.891 Personal history of nicotine dependence; N39.41 Urge incontinence; K21.9 Gastro-esophageal reflux disease without esophagitis; R35.1 Nocturia; Z79.84 Long term (current) use of oral hypoglycemic drugs; E78.00 Pure hypercholesterolemia, unspecified; I10 Essential (primary) hypertension; N32.81 Overactive bladder; Z79.899 Other long term (current) drug therapy; N95.2 Postmenopausal atrophic vaginitis; K74.00 Hepatic fibrosis, unspecified; N87.9 Dysplasia of cervix uteri, unspecified; N84.0 Polyp of corpus uteri
CPT/HCPCS: 58260; 57250; 36415; 80048; 80053; 82962; 83036; 83735; 85025; 86850; 86900; 86901; 88307; 93005; 94668; 96360; 96361; 97802; 99221; 99252; C1762; C1758; G0378; G0463; J0525; J2405

== ENCOUNTER 2025-04-25 14:35 | Inpatient (IN) | payer MEDICARE, SELFPAY ==
[2025-04-25 14:36] VITALS: BP 148/51; PULSE 63; RESP 16; TEMP 36.5; O2SAT 98
--- NOTE | 2025-04-25 15:08 | EX.ED.DYSGE1 ---
HPI History of Present Illness Chief Complaint: General Illness Informant: patient Onset/Context/Timing Onset: Days (3) Context: Gradual Onset Timing: Continuous Quality: Sharp Location: Lower abdomen Worsened by: Nothing Relieved by: Nothing Narrative Narrative: Patient presents with nausea, vomiting, and fever that has been getting worse over the past 3 days. Patient underwent total vaginal hysterectomy 10 days ago. Patient states she was doing well until 3 days ago. Patient describes her pain as sharp. Patient states it is mainly over the lower abdomen. Patient states nothing makes it worse and nothing makes it better. Patient admits to subjective fevers at home. Patient admits to nausea and vomiting but denies any hematemesis or coffee-ground emesis. Patient admits to some diarrhea but denies any melena or hematochezia. Patient admits to a headache. Patient denies any dysuria, frequency, or hematuria. [facility] Medical History Post-menopausal Diabetes Arthritis History of echocardiogram Urge incontinence Nocturia Overactive bladder Vaginal atrophy IPMN (intraductal papillary mucinous neoplasm) NAFLD (nonalcoholic fatty liver disease) Gall stones Carotid stenosis Elevated alkaline phosphatase level Wears glasses Wears dentures High cholesterol Gastric reflux Former smoker Leg cramps GERD (gastroesophageal reflux disease) Hyperlipidemia Hypertension Home Medications Medication Instructions Recorded Last Taken Type losartan 100 mg tablet 100 mg PO DAILY 10/29/21 04/25/25 History metformin 500 mg tablet 500 mg PO BID 90 days #180 tabs 08/12/23 04/25/25 Rx pantoprazole 40 mg tablet,delayed 40 mg PO DAILY 1 month #30 tabs 11/18/23 04/25/25 Rx release atorvastatin 80 mg tablet 80 mg PO QHS 04/25/25 04/24/25 History donepezil 5 mg tablet 5 mg PO DAILY 04/25/25 04/25/25 History hydrochlorothiazide 25 mg tablet 25 mg PO DAILY 04/25/25 04/25/25 History Allergy/AdvReac Type Severity Reaction Status Date / Time aspirin Allergy Itching Verified 04/25/25 14:37 codeine Allergy "swells up" Verified 04/25/25 14:37 hydrocodone Allergy diaphoretic, Verified 04/25/25 14:37 trouble breathing ibuprofen Allergy Hives Verified 04/25/25 14:37 lisinopril AdvReac Intermediate cough Verified 04/25/25 14:37 Family History Mother Diabetes Hypertension Cancer unknown Father Cancer unknown Sister Cancer Brain Brother Cancer unknown Surgical History History of total vaginal hysterectomy (TVH) History of D&C History of esophagogastroduodenoscopy (EGD) (~02/09/18) History of left knee surgery Hx laparoscopic cholecystectomy Social History number of children: 2 current occupational status: employed current occupation: [employer] Smoking Status: Former smoker alcohol intake: never substance use type: does not use what type of physical activity do you participate in: none additional social history: - Tony ROS ROS ED Constitutional Constitutional ED: Reports fever(s) and subjective; Denies chills Eyes Eyes: Denies blurry vision or change in vision ENT ENT ED: Reports rhinorrhea and sore throat Cardiovascular Cardiovascular: Denies chest pain or palpitations Respiratory/Chest Respiratory/Chest: Denies cough or dyspnea Gastrointestinal Gastrointestinal: Reports abdominal pain, diarrhea, nausea and vomiting; Denies melena Genitourinary Genitourinary ED: Denies dysuria or hematuria Musculoskeletal Musculoskeletal: Denies back pain or neck pain Integumentary Denies abscess or rash Neurologic Neurologic: Reports headache(s); Denies weakness Allergic/Immunologic Allergic/Immunologic ED: Denies mouth swelling or urticaria EXAM Physical Exam Const Vital Signs: 04/25/25 14:36 04/25/25 15:30 04/25/25 16:35 Temperature 97.7 F L Temperature Source Oral Pulse Rate 63 55 L Respiratory Rate 16 18 Respiratory Effort Normal Respiratory Pattern Normal Blood Pressure 148/51 H 154/77 H Blood Pressure Mean 83 102 Pulse Ox 98 97 Oxygen Delivery Method Room Air Positive well nourished and well developed General Appearance ED: well developed and NAD HEENT Reports moist mucous membranes Neck supple and no JVD Resp normal respiratory effort and clear to auscultation bilaterally Cardio regular rate and regular rhythm GI non-tender and non-distended Palpation: soft Extremity General Extremety ED: Negative for edema or tenderness General Extremity: Negative for edema Neuro oriented x3, CN's II-XII intact bilaterally and no sensory deficits noted Sensorium / Orientation: alert Motor Exam: strength 5/5 throughout Psych mental status grossly normal MDM MDM MDM Narrative Medical decision making narrative: Differential diagnosis includes but is not limited to bowel obstruction, perforation, dehydration, electrolyte abnormality, infection, gastroenteritis, and urinary tract infection. CT scan of the abdomen and pelvis will be obtained to assess for bowel obstruction, perforation, and abscess. CBC will be obtained to assess for leukocytosis or anemia. Comprehensive metabolic profile will be obtained to assess for electrolyte abnormality, renal function, and hepatic function. Urinalysis will be obtained to assess for urinary tract infection and hematuria. History & Record Review Additional record(s) reviewed:: Prior inpatient record and Prior labs Lab Data Attestation: I reviewed the patient's lab results. Lab results narrative: CBC was reviewed. There is a leukocytosis of 12.8. There is a mild anemia with a hemoglobin of 11.7 and hematocrit of 33.9. Platelets were normal. Comprehensive metabolic profile was reviewed. BUN was mildly elevated at 30 and creatinine was 2.09. These were increased from previous results. Alkaline phosphatase was mildly elevated at 193. The remainder was essentially within normal limits. Urinalysis was reviewed. Leukocyte esterase was 100 and occult blood was 150. There are 5-10 red blood cells and 5-10 white blood cells. There is 1+ bacteria. There are also 5-10 epithelial cells noted. Labs: Laboratory Results - last 24 hr 04/25/25 04/25/25 15:18 15:49 WBC 12.8 H RBC 3.53 L Hgb 11.7 L Hct 33.9 L MCV 96.0 MCH 33.1 H MCHC 34.5 RDW Std Deviation 43.0 RDW Coeff of Cecille 12.3 Plt Count 213 MPV 12.2 H Immature Gran % (Auto) 0.300 Neut % (Auto) 80.3 H Lymph % (Auto) 10.6 L [place] % (Auto) 8.4 Eos % (Auto) 0.2 Baso % (Auto) 0.2 Absolute Neuts (auto) 10.3 H Absolute Lymphs (auto) 1.36 Nucleated RBC % 0 Sodium 133 Potassium 3.6 Chloride 94 L Carbon Dioxide 22.6 Anion Gap 16 H BUN 30 H Creatinine 2.09 H Est GFR (MDRD) Non-Af 25 L BUN/Creatinine Ratio 14.2 Glucose 109 H Calcium 9.3 Total Bilirubin 0.98 AST 22 ALT 24 Alkaline Phosphatase 193 H Total Protein 7.5 Albumin 3.7 Globulin 3.8 Albumin/Globulin Ratio 1.0 Urine Color Yellow Urine Clarity Clear Urine pH 5.0 Ur Specific [place] 1.015 Urine Protein 30 H Urine Glucose (UA) Normal Urine Ketones Negative Urine Occult Blood 150 H Urine Nitrite Negative Urine Bilirubin Negative Urine Urobilinogen Normal Ur Leukocyte Esterase 100 H Urine RBC 5-10 SEEN Urine WBC 5-10 SEEN Ur Squamous Epith Cells 5-10 SEEN Urine Bacteria 1+ Urine Mucus RARE Radiography Diagnostic Testing: Clinical Impression(s) from Imaging Studies Abdomen/Pelvis CT 04/25/25 15:28 IMPRESSION: Possible fluid collection in the deep pelvis measuring approximately 7.3 cm, which could represent an intraperitoneal abscess or fluid-filled bowel loop; recommend further characterization with contrast-enhanced CT of the abdomen and pelvis with both intravenous and enteric contrast. Unchanged pancreatic head cystic structure measuring 1.7 cm. Unchanged right renal lesion, indeterminate; recommend correlation with prior imaging or renal mass protocol CT or MRI if not previously evaluated. Concentric urinary bladder wall thickening, possibly related to cystitis or chronic outlet obstruction. Right paramidline ventral hernia containing fat without associated inflammation. Atherosclerosis and degenerative changes of the spine. Colonic diverticulosis. Reading Location: [address] scan of the abdomen and pelvis was obtained. There is a pelvic abscess noted measuring approximately 7.3 cm. There is no free air or free fluid noted. This was interpreted by the radiologist and was also independently reviewed by myself. Treatment and Re-Evaluation :: Patient was given IV fluids, morphine, and Zofran. Patient was seen by Dr. Randa Ayala and Dr. Ina Leon here in the emergency department. Patient will be admitted to the service of Dr. Ayala. Patient was started on Zosyn. Patient and family understood and were agreeable with the plan. All questions were answered. Discharge Plan Dx/Rx/DC Orders Clinical Impression: Abscess of pelvis, Acute kidney injury, Elevated blood pressure reading Disposition Disposition: [facility]
--- NOTE | 2025-04-25 15:28 | CT_ITS ---
PROCEDURE: ABDOMEN/PELVIS WITHOUT CONT 04/25/2025 REASON FOR EXAM: ABDOMINAL PAIN TECHNIQUE: Procedure Code: [id number] Modality: CT Procedure: ABDOMEN/PELVIS WITHOUT CONT Noncontrast technique limits evaluation of the abdominal and pelvic viscera. Coronal and Sagittal reconstruction series were provided. One or more dose reduction techniques were used (e.g., Automated exposure control, adjustment of the mA and/or kV according to patient size, use of iterative reconstruction technique). COMPARISON: 09/27/2024. FINDINGS: Lung bases are clear. Coronary artery calcifications are present. Right paramidline fat containing ventral hernia (series 2, image 115 of 190). Scoliosis. Degenerative changes of the spine. Moderate atherosclerosis. Normal caliber abdominal aorta. Shotty subcentimeter retroperitoneal lymph nodes. The liver is unremarkable. Surgically absent gallbladder. Unchanged pancreatic head 1.7 cm cystic structure. Unchanged right renal lesion. If not previously characterized consider further characterization with renal mass protocol CT or MRI. Concentric urinary bladder wall thickening which may be due to cystitis or chronic outlet obstruction. Deep within the pelvis there is a 7.3 cm region of fluid possibly representing an intraperitoneal abscess versus a loop of bowel (suboptimally assessed without intravenous and enteric contrast). Further characterization with enteric and intravenous contrast is recommended. Colonic diverticulosis. CT/Abdomen/Pelvis without Cont IMPRESSION: Possible fluid collection in the deep pelvis measuring approximately 7.3 cm, wh ich could represent an intraperitoneal abscess or fluid-filled bowel loop; recommend further characterization with contrast-enhan patricia CT of the abdomen and pelvis with both intravenous and enteric contrast. Unchanged pancreatic head cystic structure measuring 1.7 cm. Unchanged right renal lesion, indeterminate; recommend correlation with prior i maging or renal mass protocol CT or MRI if not previously evaluated. Concentric urinary bladder wall thickening, possibly related to cystitis or chr onic outlet obstruction. Right paramidline ventral hernia containing fat without associated inflammation . Atherosclerosis and degenerative changes of the spine. Colonic diverticulosis. Reading Location: [id number]
[2025-04-25] MEDS: 0.9% Normal Saline (1000mL) 1,000 ML 999 ML IV (15:45)
[2025-04-25 16:01] LABS: Hematocrit 33.9 % (37-47); Hemoglobin 11.7 g/dL (12.0-15.0); Immature Granulocytes Count 0.040 X10^3/uL (0.0-0.0); Mean Corp Hgb Conc 34.5 g/dL (32-36); Mean Corpuscular Volume 96.0 fL (81-99); Mean Platelet Vol. 12.2 fl (6.2-12.0); NRBC Flagged by Analyzer 0 % (0-5); Platelet Count 213 K/mm3 (150-450); RBC Distribution Width CV 12.3 % (11.6-14.6); RBC Distribution Width SD 43.0 fl (35.1-43.9); Red Blood Count 3.53 M/mm3 (4.2-5.4); White Blood Count 12.8 K/mm3 (4.4-11.0)
[2025-04-25 16:11] LABS: Color, Urine Yellow (Yellow); Glucose, Dipstick Normal (Normal); Ketone-Dipstick Negative (Negative); Leukocyte Esterase-Dipstick 100 /ul (Negative); Nitrite-Dipstick Negative (Negative); Occult Blood-Urine 150 /ul (Negative); Protein-Dipstick 30 mg/dl (Negative); Specific Gravity, Urine 1.015 (1.002-1.030); Urine Bilirubin Dipstick Negative (Negative)
[2025-04-25 16:24] LABS: Red Blood Cells-Urine 5-10 SEEN /hpf (0-5)
[2025-04-25 16:25] LABS: Mucous, Urine RARE /hpf (<or=2+); Squamous Epithelial Cells - UA 5-10 SEEN /hpf (5-10)
[2025-04-25 16:35] VITALS: BP 154/77; PULSE 55; RESP 18; O2SAT 97
[2025-04-25 16:43] LABS: AST(SGOT) 22 U/L (<=31); Alanine Aminotransfer ALT/SGPT 24 U/L (<=34); Albumin, Serum 3.7 g/dL (3.4-4.8); Alkaline Phosphatase 193 U/L (35-104); Anion Gap 16 (5-15); BUN 30 mg/dL (4-19); BUN/Creat Ratio 14.2 RATIO (10-20); Calcium,Total 9.3 mg/dL (7.6-11.0); Carbon Dioxide 22.6 mmol/L (21.0-32.0); Chloride 94 mmol/L (98-108); Globulin 3.8 g/dL (2.2-4.2); Glucose 109 mg/dL (70-99); Potassium 3.6 mmol/L (3.3-5.1)
[2025-04-25 16:51] VITALS: BMI 37.5
--- NOTE | 2025-04-25 17:45 | PCM.PN.OB ---
Subjective Subjective patient seen for admission under sissy delgado- having 2 day history of nausea vomiting abdominal pain, constipation with some small diarrhea. no fevers. patient feels general malaise Objective Data Objective Data Vital Signs: Vital Signs Temp Pulse Resp BP Pulse Ox O2 Del Method 97.7 F L 55 L 18 154/77 H 97 Room Air 04/25/25 14:36 04/25/25 16:35 04/25/25 16:35 04/25/25 16:35 04/25/25 16:35 04/25/25 14:36 Oxygen Delivery Method Room Air Weight: 205 lb Body Mass Index (BMI) 37.5 Intake & Output: Intake and Output for Last 24 Hours 04/23/25 04/24/25 04/25/25 23:59 23:59 23:59 Intake Total 1000 / 1000 Balance 1000 / 1000 Lab / Micro Data 04/25/25 15:18 04/25/25 15:18 Labs: Laboratory Results - last 24 hr 04/25/25 15:18: WBC 12.8 H, RBC 3.53 L, Hgb 11.7 L, Hct 33.9 L, MCV 96.0, MCH 33.1 H, MCHC 34.5, RDW Std Deviation 43.0, RDW Coeff of Cecille 12.3, Plt Count 213, MPV 12.2 H, Immature Gran % (Auto) 0.300, Neut % (Auto) 80.3 H, Lymph % (Auto) 10.6 L, [place] % (Auto) 8.4, Eos % (Auto) 0.2, Baso % (Auto) 0.2, Absolute Neuts (auto) 10.3 H, Absolute Lymphs (auto) 1.36, Nucleated RBC % 0, Sodium 133, Potassium 3.6, Chloride 94 L, Carbon Dioxide 22.6, Anion Gap 16 H, BUN 30 H, Creatinine 2.09 H, Est GFR (MDRD) Non-Af 25 L, BUN/Creatinine Ratio 14.2, Glucose 109 H, Calcium 9.3, Total Bilirubin 0.98, AST 22, ALT 24, Alkaline Phosphatase 193 H, Total Protein 7.5, Albumin 3.7, Globulin 3.8, Albumin/Globulin Ratio 1.0 04/25/25 15:49: Urine Color Yellow, Urine Clarity Clear, Urine pH 5.0, Ur Specific [place] 1.015, Urine Protein 30 H, Urine Glucose (UA) Normal, Urine Ketones Negative, Urine Occult Blood 150 H, Urine Nitrite Negative, Urine Bilirubin Negative, Urine Urobilinogen Normal, Ur Leukocyte Esterase 100 H, Urine RBC 5-10 SEEN, Urine WBC 5-10 SEEN, Ur Squamous Epith Cells 5-10 SEEN, Urine Bacteria 1+, Urine Mucus RARE ROS Constitutional Constitutional: Reports body ache(s), fatigue and poor appetite; Denies fever(s) Gastrointestinal Gastrointestinal: Reports as per HPI Musculoskeletal Musculoskeletal: Reports arthralgias and myalgias Neurologic Neurologic: Reports systems reviewed and no addt'l complaints, except as documented Physical Exam Const alert and oriented x3 Constitutional Narrative: uncomfortable appearing HEENT normocephalic Head and Scalp: atraumatic Neck full ROM, no lymphadenopathy and supple General: trachea midline Resp normal respiratory effort, no retractions, no use of accessory muscles and clear to auscultation bilaterally Cardio regular rhythm GI soft to palpation Palpation: tender other (generalized) and other Other Details: mild distension Skin no rashes or lesions noted Neuro moves all extremities Psych mental status grossly normal Assessment & Plan (1) Pelvic abscess: COMMENT: postop PLAN: Plan discussed with sissy grace who reviewed images, still waiting on formal radiology report. suspect dehydration as cause of acute renal insufficiency, will admit for IV antibiotics, hydration, and consult IR in am for possible drainage.
--- NOTE | 2025-04-25 18:03 | ED.RN ---
zosyn not on unit at time of pt departure to tube to ms3
[2025-04-25 18:04] VITALS: BP 158/87; PULSE 57; RESP 16; TEMP 36.8; O2SAT 99
[2025-04-25 18:05] VITALS: BP 158/87; PULSE 57; RESP 16; TEMP 36.7; O2SAT 99
[2025-04-25 18:29] VITALS: BMI 38.0
[2025-04-25 18:35] VITALS: BP 153/68; PULSE 77; RESP 18; TEMP 36.9; O2SAT 94
--- NOTE | 2025-04-25 18:47 | US_ITS ---
PROCEDURE: TRANSVAGINAL NON- 04/25/2025 REASON FOR EXAM: PELVIC ABSCESS TECHNIQUE: Procedure Code: USTVAG Modality: US Procedure: TRANSVAGINAL NON- COMPARISON: Same day CT. FINDINGS: Surgically absent uterus and ovaries. Deep within the midline pelvis there is a 5.3 x 10.2 x 6.5 cm heterogeneous lesion with posterior through transmission and associated vascularity highly suspicious for an abscess. US/Transvaginal Non- IMPRESSION: Findings highly suspicious for a pelvic abscess. Reading Location: [id number]
[2025-04-25] MEDS: Piperacil/Tazobactam 4.5 GM in 0.9% Normal Saline (100mL MB+) 100 ML IV (20:18)
[2025-04-25] MEDS: 0.9% Normal Saline (1000mL) 1,000 ML 125 ML IV (20:18)
[2025-04-25] MEDS: 0.9% Saline Lock 10 ML Syringe IV (20:21)
[2025-04-25] MEDS: MELATONIN 10 MG TABLET 5 MG PO (22:21)
[2025-04-26] VITALS (18 sets, daily range): BP systolic 113–179; BP diastolic 45–100; PULSE 59–83; RESP 16–27; TEMP 36.2–36.8; O2SAT 90–100; BMI 38.0
[2025-04-26] MEDS: 0.9% Normal Saline (1000mL) 1,000 ML 125 ML IV ×2 (05:08→16:32)
[2025-04-26] MEDS: Piperacil/Tazobactam 3.375 GM Q8 PREMIX IV (05:12)
[2025-04-26 08:48] LABS: Hematocrit 31.6 % (37-47); Hemoglobin 10.9 g/dL (12.0-15.0); Immature Granulocytes Count 0.030 X10^3/uL (0.0-0.0); Mean Corp Hgb Conc 34.5 g/dL (32-36); Mean Corpuscular Volume 96.6 fL (81-99); Mean Platelet Vol. 12.0 fl (6.2-12.0); NRBC Flagged by Analyzer 0 % (0-5); Platelet Count 214 K/mm3 (150-450); RBC Distribution Width CV 12.4 % (11.6-14.6); RBC Distribution Width SD 43.8 fl (35.1-43.9); Red Blood Count 3.27 M/mm3 (4.2-5.4); White Blood Count 8.8 K/mm3 (4.4-11.0)
[2025-04-26 08:53] LABS: Prothrombin Time (Protime)PT. 13.4 SECONDS (11.7-14.9)
[2025-04-26 09:01] LABS: AST(SGOT) 33 U/L (<=31); Alanine Aminotransfer ALT/SGPT 27 U/L (<=34); Albumin, Serum 3.3 g/dL (3.4-4.8); Alkaline Phosphatase 201 U/L (35-104); Anion Gap 14 (5-15); BUN 21 mg/dL (4-19); BUN/Creat Ratio 16.6 RATIO (10-20); Calcium,Total 8.6 mg/dL (7.6-11.0); Carbon Dioxide 21.8 mmol/L (21.0-32.0); Chloride 101 mmol/L (98-108); Estimated Creatinine Clearance 46.35 ml/min (50-250); Globulin 3.1 g/dL (2.2-4.2); Glucose 125 mg/dL (70-99); Potassium 3.3 mmol/L (3.3-5.1)
--- NOTE | 2025-04-26 10:44 | PCM.HP.STD ---
HPI - General General Date of Admission: 04/25/25 Date of Service: 04/26/25 Chief Complaint: Abdominal pain HPI Narrative KEMAL SALGADO, is a 69 F who underwent a transvaginal hysterectomy with posterior repair, bilateral sacrospinous ligament fixation 10 days ago. She called the office complaining of nausea, vomiting for 2 days with fever at home. She was sent into the emergency room for evaluation. She complained of lower abdominal pain, difficulty with bowel movements, some nausea and fever to 101 at home. She was given fluids, evaluated with laboratory studies and CT scan. She was found to have evidence of a possible pelvic abscess on CAT scan. She was admitted for further evaluation and treatment. [facility] Medical History Post-menopausal Diabetes Arthritis History of echocardiogram Urge incontinence Nocturia Overactive bladder Vaginal atrophy IPMN (intraductal papillary mucinous neoplasm) NAFLD (nonalcoholic fatty liver disease) Gall stones Carotid stenosis Elevated alkaline phosphatase level Wears glasses Wears dentures High cholesterol Gastric reflux Former smoker Leg cramps GERD (gastroesophageal reflux disease) Hyperlipidemia Hypertension Home Medications Medication Instructions Recorded Last Taken Type losartan 100 mg tablet 100 mg PO DAILY 10/29/21 04/25/25 History metformin 500 mg tablet 500 mg PO BID 90 days #180 tabs 08/12/23 04/25/25 Rx pantoprazole 40 mg tablet,delayed 40 mg PO DAILY 1 month #30 tabs 11/18/23 04/25/25 Rx release atorvastatin 80 mg tablet 80 mg PO QHS 04/25/25 04/24/25 History donepezil 5 mg tablet 5 mg PO DAILY 04/25/25 04/25/25 History hydrochlorothiazide 25 mg tablet 25 mg PO DAILY 04/25/25 04/25/25 History Allergy/AdvReac Type Severity Reaction Status Date / Time aspirin Allergy Itching Verified 04/25/25 14:37 codeine Allergy "swells up" Verified 04/25/25 14:37 hydrocodone Allergy diaphoretic, Verified 04/25/25 14:37 trouble breathing ibuprofen Allergy Hives Verified 04/25/25 14:37 lisinopril AdvReac Intermediate cough Verified 04/25/25 14:37 Family History Mother Diabetes Hypertension Cancer unknown Father Cancer unknown Sister Cancer Brain Brother Cancer unknown Surgical History History of total vaginal hysterectomy (TVH) History of D&C History of esophagogastroduodenoscopy (EGD) (~02/09/18) History of left knee surgery Hx laparoscopic cholecystectomy Social History number of children: 2 current occupational status: employed current occupation: [employer] Smoking Status: Former smoker alcohol intake: never substance use type: does not use what type of physical activity do you participate in: none additional social history: - Tony KOROMA Constitutional Constitutional: Denies chills or fever(s) Eyes Eyes: Reports systems reviewed and no addt'l complaints, except as documented ENT HEENT: Reports systems reviewed and no addt'l complaints, except as documented Cardiovascular Cardiovascular: Denies chest pain or dyspnea Respiratory/Chest Respiratory/Chest: Denies cough, dyspnea or shortness of breath at rest Gastrointestinal Gastrointestinal: Reports abdominal pain, constipation and nausea Genitourinary Genitourinary: Denies flank pain, hematuria, urinary incontinence or urinary urgency Musculoskeletal Musculoskeletal: Reports systems reviewed and no addt'l complaints, except as documented Integumentary Integumentary: Reports systems reviewed and no addt'l complaints, except as documented Neurologic Neurologic: Reports systems reviewed and no addt'l complaints, except as documented Psychiatric Psychiatric: Reports systems reviewed and no addt'l complaints, except as documented Endocrine Endocrinology: Reports systems reviewed and no addt'l complaints, except as documented Hematologic/Lymphatic Hematologic/Lymphatic: Reports systems reviewed and no addt'l complaints, except as documented Allergic/Immunologic Allergic/Immunologic: Reports systems reviewed and no addt'l complaints, except as documented Vital Signs Vital Signs Vital Signs: 04/25/25 14:36 04/25/25 15:30 04/25/25 16:35 Temperature 97.7 F L Temperature Source Oral Pulse Rate 63 55 L Respiratory Rate 16 18 Respiratory Effort Normal Respiratory Depth Respiratory Pattern Normal Blood Pressure 148/51 H 154/77 H Blood Pressure Mean 83 102 Blood Pressure Source Blood Pressure Position Blood Pressure Location Pulse Ox 98 97 Oxygen Delivery Method Room Air 04/25/25 18:04 04/25/25 18:05 04/25/25 18:35 Temperature 98.2 F 98.0 F 98.5 F Temperature Source Oral Oral Pulse Rate 57 L 57 L 77 Respiratory Rate 16 16 18 Respiratory Effort Respiratory Depth Respiratory Pattern Blood Pressure 158/87 H 158/87 H 153/68 H Blood Pressure Mean 110 110 96 Blood Pressure Source Monitor Blood Pressure Position Semi-Fowlers Blood Pressure Location Left Arm Pulse Ox 99 99 94 Oxygen Delivery Method Room Air Room Air 04/25/25 20:00 04/26/25 02:30 04/26/25 09:35 Temperature 97.8 F 98.2 F Temperature Source Temporal Oral Pulse Rate 66 60 Respiratory Rate 16 18 Respiratory Effort Normal Non-Labored Respiratory Depth Normal Respiratory Pattern Normal Blood Pressure 141/70 H 145/71 H Blood Pressure Mean 93 95 Blood Pressure Source Monitor Monitor Blood Pressure Position Semi-Fowlers Semi-Fowlers Blood Pressure Location Right Forearm Right Arm Pulse Ox 97 97 Oxygen Delivery Method Room Air Room Air Room Air Weight Weight: 207 lb 12.8 oz Body Mass Index (BMI) 38.0 Physical Exam Const oriented x3 General Appearance: ill appearing Resp normal respiratory effort Cardio regular rate GI soft to palpation Palpation: tender suprapubic Extremity normal to inspection Results Lab / Micro Data Attestation: I reviewed the patient's lab results. 04/26/25 08:18 04/26/25 08:18 Labs: Laboratory Results - last 24 hr 04/25/25 15:18: WBC 12.8 H, RBC 3.53 L, Hgb 11.7 L, Hct 33.9 L, MCV 96.0, MCH 33.1 H, MCHC 34.5, RDW Std Deviation 43.0, RDW Coeff of Cecille 12.3, Plt Count 213, MPV 12.2 H, Immature Gran % (Auto) 0.300, Neut % (Auto) 80.3 H, Lymph % (Auto) 10.6 L, [place] % (Auto) 8.4, Eos % (Auto) 0.2, Baso % (Auto) 0.2, Absolute Neuts (auto) 10.3 H, Absolute Lymphs (auto) 1.36, Nucleated RBC % 0, Sodium 133, Potassium 3.6, Chloride 94 L, Carbon Dioxide 22.6, Anion Gap 16 H, BUN 30 H, Creatinine 2.09 H, Est GFR (MDRD) Non-Af 25 L, BUN/Creatinine Ratio 14.2, Glucose 109 H, Calcium 9.3, Total Bilirubin 0.98, AST 22, ALT 24, Alkaline Phosphatase 193 H, Total Protein 7.5, Albumin 3.7, Globulin 3.8, Albumin/Globulin Ratio 1.0 04/25/25 15:49: Urine Color Yellow, Urine Clarity Clear, Urine pH 5.0, Ur Specific [place] 1.015, Urine Protein 30 H, Urine Glucose (UA) Normal, Urine Ketones Negative, Urine Occult Blood 150 H, Urine Nitrite Negative, Urine Bilirubin Negative, Urine Urobilinogen Normal, Ur Leukocyte Esterase 100 H, Urine RBC 5-10 SEEN, Urine WBC 5-10 SEEN, Ur Squamous Epith Cells 5-10 SEEN, Urine Bacteria 1+, Urine Mucus RARE 04/25/25 21:41: POC Glucose 96 04/26/25 08:18: WBC 8.8, RBC 3.27 L, Hgb 10.9 L, Hct 31.6 L, MCV 96.6, MCH 33.3 H, MCHC 34.5, RDW Std Deviation 43.8, RDW Coeff of Cecille 12.4, Plt Count 214, MPV 12.0, Immature Gran % (Auto) 0.300, Neut % (Auto) 78.7 H, Lymph % (Auto) 11.8 L, [place] % (Auto) 8.4, Eos % (Auto) 0.6, Baso % (Auto) 0.2, Absolute Neuts (auto) 7.0, Absolute Lymphs (auto) 1.04, Nucleated RBC % 0, PT 13.4, INR 1.0, Sodium 137, Potassium 3.3, Chloride 101, Carbon Dioxide 21.8, Anion Gap 14, BUN 21 H, Creatinine 1.26 H, Estim Creat Clear Calc 46.35 L, Est GFR (MDRD) Non-Af 47 L, BUN/Creatinine Ratio 16.6, Glucose 125 H, Calcium 8.6, Total Bilirubin 1.12, AST 33 H, ALT 27, Alkaline Phosphatase 201 H, Total Protein 6.4, Albumin 3.3 L, Globulin 3.1, Albumin/Globulin Ratio 1.1 Imaging Radiology Impression Abdomen/Pelvis CT 04/25/25 15:28 IMPRESSION: Possible fluid collection in the deep pelvis measuring approximately 7.3 cm, which could represent an intraperitoneal abscess or fluid-filled bowel loop; recommend further characterization with contrast-enhanced CT of the abdomen and pelvis with both intravenous and enteric contrast. Unchanged pancreatic head cystic structure measuring 1.7 cm. Unchanged right renal lesion, indeterminate; recommend correlation with prior imaging or renal mass protocol CT or MRI if not previously evaluated. Concentric urinary bladder wall thickening, possibly related to cystitis or chronic outlet obstruction. Right paramidline ventral hernia containing fat without associated inflammation. Atherosclerosis and degenerative changes of the spine. Colonic diverticulosis. Reading Location: [address] Transvaginal US 04/25/25 18:47 IMPRESSION: Findings highly suspicious for a pelvic abscess. Reading Location: [address] Assessment & Plan Assessment/Plan (1) Pelvic abscess: (2) Acute kidney injury: (3) Overactive bladder: (4) Nocturia: (5) Urge incontinence: (6) STILES (nonalcoholic steatohepatitis): PLAN: Plan Plan for interventional radiology evaluation with possible aspiration/drain placement Continue antibiotic coverage Continue gentle hydration and supportive care, already significant improvement in creatinine Continue SCDs Charges/Coding Multi Select Codes Urology Urology Charge Forwarding-multi code: Catarina Quiros
--- NOTE | 2025-04-26 11:00 | CT_ITS ---
PROCEDURE: CT GUIDANCE ABSCESS DRG W/CATH 04/26/2025 REASON FOR EXAM: PELVIC ABSCESS TECHNIQUE: Procedure Code: [id number] Modality: CT Procedure: CT GUIDANCE ABSCESS DRG W/CATH Coronal and Sagittal reconstruction series were provided. One or more dose reduction techniques were used (e.g., Automated exposure control, adjustment of the mA and/or kV according to patient size, use of iterative reconstruction technique. The procedure as well as the benefits and possible complications were explained to the patient. Informed consent was obtained. Conscious sedation was performed. The patient received 3 mg of Versed and 75 mcg of fentanyl intravenously. The patient was independently monitored by the department nurse. Conscious sedation was started at 12:14 p.m. and terminated at 12:36 p.m.. The patient was in the prone position. Following local anesthetic application, an 18 gauge biopsy needle was placed into the right pelvic fluid collection. Bloody purulent material was aspirated. Following this, over appropriate guidewires and dilators, an 8.5 [place] all-purpose drainage catheter was placed into the fluid collection. A total of 85 cc of blood-tinged purulent material was aspirated. The catheter was left in place. The patient tolerated the procedure well. RADIATION DOSE SUMMARY: CTDlvol: 27 mGy DLP: 1805.36 mGycm COMPARISON: Prior CT scan dated April 25, 2025. FINDINGS: Successful drainage of the pelvic abscess. CT/CT Guidance Abscess Drg w/Cath IMPRESSION: Successful drainage of the pelvic abscess. The patient tolerated the procedure well. Reading Location: [place] [id number]
--- NOTE | 2025-04-26 11:11 | CASEMGMT ---
Dx:pelvic abscess LACE:2 6-Clicks:23 Medical record reviewed and patient evaluated for identification of discharge planning needs. Based on this review, at this time criteria are not present to indicate a need for discharge planning. Will remain available to assist with discharge planning needs as identified or requested.
[2025-04-26] MEDS: Midazolam 2 MG/2 ML Syringe IV ×2 (12:14→12:23)
[2025-04-26] MEDS: 0.9% Normal Saline (250mL Bag) 250 ML 15 ML IV (12:14)
[2025-04-26] MEDS: fentaNYL 100 MCG/2 ML Ampul IV ×2 (12:17→12:25)
[2025-04-26] MEDS: Lidocaine 2% (20 ml mdv) 20 ML Vial INFILT (12:25)
[2025-04-26] MEDS: Piperacil/Tazobactam 3.375 GM in 0.9% Normal Saline (50mL MB+) 50 ML IV ×2 (13:55→20:53)
[2025-04-26] MEDS: 0.9% Saline Lock 10 ML Syringe IV ×2 (13:56→16:25)
--- NOTE | 2025-04-26 17:49 | PCM.PN.OB ---
Subjective Subjective pain improved less bloating since procedure, still nauseated, no fevers. luis drain emptying Objective Data Objective Data Vital Signs: Vital Signs Temp Pulse Resp BP Pulse Ox O2 Del Method O2 Flow Rate 98.1 F 60 16 163/63 H 100 Room Air 2 04/26/25 16:19 04/26/25 16:19 04/26/25 16:19 04/26/25 16:19 04/26/25 16:19 04/26/25 16:19 04/26/25 12:35 Oxygen Flow Rate (L/min) 2 Oxygen Delivery Method Room Air Weight: 207 lb 3.752 oz Body Mass Index (BMI) 38.0 Intake & Output: Intake and Output for Last 24 Hours 04/24/25 04/25/25 04/26/25 23:59 23:59 23:59 Intake Total 1100 / 1100 2099 / 2100 Output Total 65 / 65 Balance 1100 / 1100 2034 / 2034 Lab / Micro Data 04/26/25 08:18 04/26/25 08:18 Labs: Laboratory Results - last 24 hr 04/25/25 21:41: POC Glucose 96 04/26/25 08:18: WBC 8.8, RBC 3.27 L, Hgb 10.9 L, Hct 31.6 L, MCV 96.6, MCH 33.3 H, MCHC 34.5, RDW Std Deviation 43.8, RDW Coeff of Cecille 12.4, Plt Count 214, MPV 12.0, Immature Gran % (Auto) 0.300, Neut % (Auto) 78.7 H, Lymph % (Auto) 11.8 L, [place] % (Auto) 8.4, Eos % (Auto) 0.6, Baso % (Auto) 0.2, Absolute Neuts (auto) 7.0, Absolute Lymphs (auto) 1.04, Nucleated RBC % 0, PT 13.4, INR 1.0, Sodium 137, Potassium 3.3, Chloride 101, Carbon Dioxide 21.8, Anion Gap 14, BUN 21 H, Creatinine 1.26 H, Estim Creat Clear Calc 46.35 L, Est GFR (MDRD) Non-Af 47 L, BUN/Creatinine Ratio 16.6, Glucose 125 H, Calcium 8.6, Total Bilirubin 1.12, AST 33 H, ALT 27, Alkaline Phosphatase 201 H, Total Protein 6.4, Albumin 3.3 L, Globulin 3.1, Albumin/Globulin Ratio 1.1 04/26/25 13:58: POC Glucose 124 H Radiography Diagnostic Testing: Radiology Impression Abdomen/Pelvis CT 04/25/25 15:28 IMPRESSION: Possible fluid collection in the deep pelvis measuring approximately 7.3 cm, which could represent an intraperitoneal abscess or fluid-filled bowel loop; recommend further characterization with contrast-enhanced CT of the abdomen and pelvis with both intravenous and enteric contrast. Unchanged pancreatic head cystic structure measuring 1.7 cm. Unchanged right renal lesion, indeterminate; recommend correlation with prior imaging or renal mass protocol CT or MRI if not previously evaluated. Concentric urinary bladder wall thickening, possibly related to cystitis or chronic outlet obstruction. Right paramidline ventral hernia containing fat without associated inflammation. Atherosclerosis and degenerative changes of the spine. Colonic diverticulosis. Reading Location: [address] Transvaginal US 04/25/25 18:47 IMPRESSION: Findings highly suspicious for a pelvic abscess. Reading Location: [address] Abscess Drain[address] 04/26/25 11:00 IMPRESSION: Successful drainage of the pelvic abscess. The patient tolerated the procedure well. Reading Location: [facility] Physical Exam Const alert, oriented x3 and no apparent distress Narrative: less distension, luis drain serosanguinous material Assessment & Plan (1) Pelvic abscess: COMMENT: postop, sp IR drainage. on IV zosyn (2) History of total vaginal hysterectomy (TVH): COMMENT: danny perez scar tissue tubes not removed (3) Acute kidney injury: PLAN: Plan continue IV antibiotics, will wean down IV fluids as tolerates more po. scds.
[2025-04-27] MEDS: 0.9% Normal Saline (1000mL) 1,000 ML 125 ML IV (00:15)
[2025-04-27 03:38] VITALS: BP 159/70; PULSE 70; RESP 18; TEMP 36.8; O2SAT 97
[2025-04-27] MEDS: Piperacil/Tazobactam 3.375 GM in 0.9% Normal Saline (50mL MB+) 50 ML IV ×3 (05:53→21:46)
[2025-04-27 06:37] LABS: Hematocrit 30.3 % (37-47); Hemoglobin 10.3 g/dL (12.0-15.0); Immature Granulocytes Count 0.020 X10^3/uL (0.0-0.0); Mean Corp Hgb Conc 34.0 g/dL (32-36); Mean Corpuscular Volume 97.1 fL (81-99); Mean Platelet Vol. 11.6 fl (6.2-12.0); NRBC Flagged by Analyzer 0 % (0-5); Platelet Count 212 K/mm3 (150-450); RBC Distribution Width CV 12.5 % (11.6-14.6); RBC Distribution Width SD 44.6 fl (35.1-43.9); Red Blood Count 3.12 M/mm3 (4.2-5.4); White Blood Count 6.1 K/mm3 (4.4-11.0)
[2025-04-27 07:09] LABS: Anion Gap 11 (5-15); BUN 10 mg/dL (4-19); BUN/Creat Ratio 11.8 RATIO (10-20); Calcium,Total 8.4 mg/dL (7.6-11.0); Carbon Dioxide 23.4 mmol/L (21.0-32.0); Chloride 104 mmol/L (98-108); Estimated Creatinine Clearance 69.42 ml/min (50-250); Glucose 107 mg/dL (70-99); Potassium 3.4 mmol/L (3.3-5.1)
[2025-04-27 07:44] VITALS: O2SAT 94
[2025-04-27 08:23] VITALS: BP 140/66; PULSE 66; RESP 16; TEMP 36.9; O2SAT 94
--- NOTE | 2025-04-27 09:04 | PN.OBGYN_ITS ---
Subjective Subjective pain improved less nausea less bloating since procedure, no fevers. luis drain emptying but less overnihgt 15 cc Objective Data Objective Data Vital Signs: Vital Signs Temp Pulse Resp BP Pulse Ox O2 Del Method O2 Flow Rate 98.5 F 66 16 140/66 H 94 Room Air 2 04/27/25 08:23 04/27/25 08:23 04/27/25 08:23 04/27/25 08:23 04/27/25 08:23 04/27/25 08:23 04/26/25 12:35 Oxygen Flow Rate (L/min) 2 Oxygen Delivery Method Room Air Weight: 207 lb 3.752 oz Body Mass Index (BMI) 38.0 Intake & Output: Intake and Output for Last 24 Hours 04/25/25 04/26/25 04/27/25 23:59 23:59 23:59 Intake Total 1100 / 1100 2600 / 2600 1714.58 / 1714.58 Output Total 75 / 75 5 / 5 Balance 1100 / 1100 2525 / 2525 1709.58 / 1709.58 Lab / Micro Data 04/27/25 06:02 04/27/25 06:02 Labs: Laboratory Results - last 24 hr 04/26/25 13:58: POC Glucose 124 H 04/26/25 16:40: POC Glucose 101 04/27/25 06:02: WBC 6.1, RBC 3.12 L, Hgb 10.3 L, Hct 30.3 L, MCV 97.1, MCH 33.0 H, MCHC 34.0, RDW Std Deviation 44.6 H, RDW Coeff of Cecille 12.5, Plt Count 212, MPV 11.6, Immature Gran % (Auto) 0.300, Neut % (Auto) 78.1 H, Lymph % (Auto) 12.1 L, [place] % (Auto) 8.7, Eos % (Auto) 0.5, Baso % (Auto) 0.3, Absolute Neuts (auto) 4.8, Absolute Lymphs (auto) 0.74 L, Nucleated RBC % 0, Sodium 138, Potassium 3.4, Chloride 104, Carbon Dioxide 23.4, Anion Gap 11, BUN 10, Creatinine 0.84, Estim Creat Clear Calc 69.42, Est GFR (MDRD) Non-Af 76, BUN/Creatinine Ratio 11.8, Glucose 107 H, Calcium 8.4 Micro: Microbiology 04/26/25 12:57 Abs - Pelvic Wound Culture - Preliminary No growth-Final to follow Radiography Diagnostic Testing: Radiology Impression Abscess Drainage CT 04/26/25 11:00 IMPRESSION: Successful drainage of the pelvic abscess. The patient tolerated the procedure well. [facility] Ex[facility] Const alert, oriented x3 and no apparent distress Narrative: less distension, luis drain serosanguinous material Assessment & Plan (1) Pelvic abscess: COMMENT: postop, sp IR drainage. on IV zosyn (2) History of total vaginal hysterectomy (TVH): COMMENT: danny perez scar tissue tubes not removed (3) Acute kidney injury: PLAN: Plan continue IV antibiotics, continue to wean down IV fluids as tolerates more po. scds.
[2025-04-27 14:23] VITALS: BP 126/67; PULSE 61; RESP 16; TEMP 36.7; O2SAT 100
--- NOTE | 2025-04-27 16:38 | PN.URO_ITS ---
Subjective Subjective Sitting up in bed. She is eating dinner. Her nausea has improved and she is finally having bowel movements. She is sore where the DIVYA drain is. Objective Data Objective Data Drain has not been emptied according to the nursing staff and there is approximately 10 cc or less in the bulb. It is serosanguineous in nature. Vital Signs: Vital Signs Temp Pulse Resp BP Pulse Ox O2 Del Method O2 Flow Rate 98.0 F 61 16 126/67 H 100 Room Air 2 04/27/25 14:23 04/27/25 14:23 04/27/25 14:23 04/27/25 14:23 04/27/25 14:23 04/27/25 14:23 04/26/25 12:35 Oxygen Flow Rate (L/min) 2 Oxygen Delivery Method Room Air Weight: 207 lb 3.752 oz Body Mass Index (BMI) 38.0 Intake & Output: Intake and Output for Last 24 Hours 04/25/25 04/26/25 04/27/25 23:59 23:59 23:59 Intake Total 1100 / 1100 2600 / 2600 2764.58 / 2764.58 Output Total 75 / 75 Balance 1100 / 1100 2525 / 2525 2754.58 / 2754.58 Lab / Micro Data 04/27/25 06:02 04/27/25 06:02 Labs: Laboratory Results - last 24 hr 04/26/25 16:40: POC Glucose 101 04/27/25 06:02: WBC 6.1, RBC 3.12 L, Hgb 10.3 L, Hct 30.3 L, MCV 97.1, MCH 33.0 H, MCHC 34.0, RDW Std Deviation 44.6 H, RDW Coeff of Cecille 12.5, Plt Count 212, MPV 11.6, Immature Gran % (Auto) 0.300, Neut % (Auto) 78.1 H, Lymph % (Auto) 12.1 L, [place] % (Auto) 8.7, Eos % (Auto) 0.5, Baso % (Auto) 0.3, Absolute Neuts (auto) 4.8, Absolute Lymphs (auto) 0.74 L, Nucleated RBC % 0, Sodium 138, Potassium 3.4, Chloride 104, Carbon Dioxide 23.4, Anion Gap 11, BUN 10, Creatinine 0.84, Estim Creat Clear Calc 69.42, Est GFR (MDRD) Non-Af 76, BUN/Creatinine Ratio 11.8, Glucose 107 H, Calcium 8.4 Micro: Microbiology 04/26/25 12:57 Abs - Pelvic Gram Stain - Final 04/26/25 12:57 Abs - Pelvic Wound Culture - Preliminary No growth-Final to follow Physical Exam Const alert, oriented x3 and no apparent distress General Appearance: cooperative and comfortable HEENT normocephalic and head/scalp atraumatic Eyes General Eye: normal appearance of both eyes Neck supple General: normal visual inspection Lymph Lymphatic: no lymphedema noted Chest inspection of chest normal Chest: symmetrical chest wall rise Resp normal respiratory effort, normal air movement, no retractions and no use of accessory muscles Cardio regular rate GI soft to palpation, non-tender and non-distended Back/Spine no CVA tenderness Extremity normal to inspection Extremity Narrative: SCDs Skin no rashes or lesions noted and no wounds Neuro oriented x3, CN's II-XII intact bilaterally and moves all extremities Psych mental status grossly normal and thought process normal Assessment & Plan Assessment/Plan (1) Pelvic abscess: (2) Acute kidney injury: (3) History of total vaginal hysterectomy (TVH): (4) Overactive bladder: (5) Nocturia: (6) Urge incontinence: (7) STILES (nonalcoholic steatohepatitis): PLAN: Plan Await culture results Continue antibiotic Hep-Lock IV Increase activity with ambulation 3 times daily Follow drain output
[2025-04-27 21:40] VITALS: BP 126/59; PULSE 67; RESP 18; TEMP 36.9; O2SAT 97
[2025-04-27] MEDS: 0.9% Normal Saline (250mL Bag) 250 ML 15 ML IV (21:47)
[2025-04-28 05:22] VITALS: BP 131/71; PULSE 66; RESP 18; TEMP 36.6; O2SAT 95
[2025-04-28] MEDS: Piperacil/Tazobactam 3.375 GM in 0.9% Normal Saline (50mL MB+) 50 ML IV ×2 (05:24→12:58)
[2025-04-28 07:31] VITALS: O2SAT 98
[2025-04-28 07:43] VITALS: BP 146/75; PULSE 55; RESP 15; TEMP 36.3; O2SAT 99
--- NOTE | 2025-04-28 08:49 | PCM.PN.GU ---
Subjective Subjective Feeling much better today. Nausea resolved. She is eating cereal. She is having bowel movements and denies abdominal discomfort. Of note, her son came in unresponsive and is in the ICU currently. Objective Data Objective Data Vital Signs: Vital Signs Temp Pulse Resp BP Pulse Ox O2 Del Method O2 Flow Rate 97.3 F L 55 L 15 146/75 H 99 Room Air 2 04/28/25 07:43 04/28/25 07:43 04/28/25 07:43 04/28/25 07:43 04/28/25 07:43 04/28/25 07:43 04/26/25 12:35 Oxygen Flow Rate (L/min) 2 Oxygen Delivery Method Room Air Weight: 207 lb 3.752 oz Body Mass Index (BMI) 38.0 Intake & Output: Intake and Output for Last 24 Hours 04/26/25 04/27/25 04/28/25 23:59 23:59 23:59 Intake Total 2600 / 2600 3114.58 / 3114.58 750 / 750 Output Total 75 / 75 Balance 2525 / 2525 3099.58 / 3099.58 750 / 750 Lab / Micro Data Attestation: I reviewed the patient's lab results. 04/27/25 06:02 04/27/25 06:02 Micro: Microbiology 04/26/25 12:57 Abs - Pelvic Gram Stain - Final 04/26/25 12:57 Abs - Pelvic Wound Culture - Preliminary No growth-Final to follow Physical Exam Const alert, oriented x3 and no apparent distress General Appearance: cooperative and comfortable HEENT normocephalic and head/scalp atraumatic Eyes General Eye: normal appearance of both eyes Neck supple General: normal visual inspection Lymph Lymphatic: no lymphedema noted Chest inspection of chest normal Chest: symmetrical chest wall rise Resp normal respiratory effort, normal air movement, no retractions and no use of accessory muscles Cardio regular rate GI soft to palpation, non-tender and non-distended Narrative: drain with serosanguineous fluid, approximately 5 cc overnight Back/Spine no CVA tenderness Extremity normal to inspection Extremity Narrative: SCDs Skin no rashes or lesions noted and no wounds Neuro oriented x3, CN's II-XII intact bilaterally and moves all extremities Psych mental status grossly normal and thought process normal Assessment & Plan Assessment/Plan (1) Pelvic abscess: (2) Acute kidney injury: (3) History of total vaginal hysterectomy (TVH): (4) Overactive bladder: (5) Nocturia: (6) Urge incontinence: (7) STILES (nonalcoholic steatohepatitis): PLAN: Plan Plan to change to oral antibiotics Remove DIVYA drain Discharge planning Charges/Coding Multi Select Codes Urology Urology Charge Forwarding-multi code: Catarina Quiros
--- NOTE | 2025-04-28 09:35 | DCINST_ITS ---
Discharge Instructions Diet Discharge Diet: No restrictions Activity Lifting Restrictions: Continue postop restrictions with 5 pound lifting limit Additional Activity Instructions:: Continue shower only, and all the other restrictions previously mentioned after the pelvic surgery Dressing / Incision Drain: Suction (Empty daily, measuring and recording output) Follow Up Care Please Follow Up With: Randa Ayala MD When: Arrangements will be made for CT scan on Friday and then to follow-up in the office for drain removal Test Results: Test results from this visit will be discussed in further detail at your follow- up appointment, if applicable. Pending Tests Upon Discharge: CT to be scheduled for this coming Friday Discharge Plan Admission Admit Date/Time: 04/25/25 17:44 Attending Provider: Randa Ayala Primary Care Provider: Paula Barrera Instructions Patient Instructions: Eliseo Klein Drain Tube Dc, Post Op Drain Emptying Steps, RAD RN Procedural Sedation Additional Instructions / Restrictions: You are scheduled for a CT Scan friday05/02/25 at 1:oop please arrive a few minutes early. You will go to the 1st floor diagnositics. You are to follow up in the office of Dr. Ayala on friday after the CT. You do not need to schedule an appointment with Dr. Ayala on friday, Just go to her office following the CT Discharge Orders/Prescriptions Prescriptions: New tramadol 50 mg tablet 50 mg PO Q8H PRN (Reason: pain) 3 Days Qty: 10 0RF amoxicillin-pot clavulanate 875-125 mg tablet 1 tab PO BID Qty: 20 0RF ondansetron 8 mg tablet,disintegrating 8 mg PO Q8H PRN (Reason: nausea and vomiting) Qty: 10 0RF Continued losartan 100 mg tablet 100 mg PO DAILY metformin 500 mg tablet 500 mg PO BID 90 Days Qty: 180 1RF pantoprazole 40 mg tablet,delayed release (DR/EC) 40 mg PO DAILY 30 Days Qty: 30 4RF Rx Instructions: 1 hour before breakfast atorvastatin 80 mg tablet 80 mg PO QHS donepezil 5 mg tablet 5 mg PO DAILY hydrochlorothiazide 25 mg tablet 25 mg PO DAILY Other Ambulatory Orders: Abdomen/Pelvis W IV Cont ONLY (Routine) Timeframe: 4 Days Facility: [facility] - Location: [facility] Ordered By: Dr. Randa Ayala Referrals / Follow Up: Paula Barrera DO [Primary Care Provider, Internal Medicine] Disposition Disposition (needs filled in before D/C Order can be placed): Home, Self Care
--- NOTE | 2025-04-28 13:31 | CASEMGMT ---
RN CM into pt room, pt sitting on eob. Pt states she feels comfortable dc'ing home with drain. Pt in room and states he was taught how to care for it as well. Pt denies any homegoing needs at this time.
--- NOTE | 2025-04-28 13:47 | PHA.DC_ITS ---
Pharmacy [facility] has performed discharge medication counseling for this patient. The patient was counseled on the following discharge medications and changes in medications for homegoing review. - Tramadol 50 mg tablet, Augmentin 875 mg tablet, Ondansetron 8 mg ODT. The Reason for Use, instructions for use, and potential side effects were reviewed for all new medications. The patient's questions regarding all of their medications were answered. The patient was able to verbally demonstrate an understanding of their discharge medications. Medications at Discharge Home Medications losartan 100 mg tablet 100 mg PO DAILY 10/29/21 metformin 500 mg tablet 500 mg PO BID 90 days #180 tabs 08/12/23 pantoprazole 40 mg tablet,delayed release 40 mg PO DAILY 1 month #30 tabs 11/18/23 atorvastatin 80 mg tablet 80 mg PO QHS 04/25/25 donepezil 5 mg tablet 5 mg PO DAILY 04/25/25 hydrochlorothiazide 25 mg tablet 25 mg PO DAILY 04/25/25 amoxicillin 875 mg-potassium clavulanate 125 mg tablet 1 tab PO BID #20 tabs 04/28/25 ondansetron 8 mg disintegrating tablet 8 mg PO Q8H PRN nausea and vomiting #10 tabs 04/28/25 tramadol 50 mg tablet 50 mg PO Q8H PRN pain 3 days #10 tabs 04/28/25
[2025-04-28 14:00] VITALS: BP 151/76; PULSE 59; RESP 16; TEMP 36.5; O2SAT 99
--- NOTE | 2025-04-28 15:21 | NURSING ---
COMMUNICATION SENT TO DR REY REQUESTING TO INCREASE ZOSYN INFUSION TO RUN 30MIN INFUSION D/T ZOSYN WAS HUNG PRIOR TO DC ORDER AND BAG IS NOT SCHEDULED TO FINISH UNTIL 1700 AND PT DOES NOT WANT TO STAY THAT LONG. DR REY RESPONDED THAT SHE IS OKAY W/INCREASING RATE LONG IT IS OKAY W/PHARMACIST. SPOKE W/PATRICIA IN PHARMACY AND WAS GIVEN APPROVAL TO INCREASE RATE
--- NOTE | 2025-05-03 22:49 | DS.PCM_ITS ---
Providers Date of Admission: 04/25/25 Date of Discharge: 04/28/25 Primary Care Physician: Dr. Paula Barrera, DO Interventional radiology Reason For Visit: PELVIC ABSCESS Diagnosis Discharge Diagnosis (1) Pelvic abscess: Status: Acute (2) Acute kidney injury: Status: Acute Code(s): N17.9 - Acute kidney failure, unspecified (3) History of total vaginal hysterectomy (TVH): Status: Acute Code(s): Z90.710 - Acquired absence of both cervix and uterus (4) Overactive bladder: Status: Acute Code(s): N32.81 - Overactive bladder (5) Nocturia: Status: Acute Code(s): R35.1 - Nocturia (6) Urge incontinence: Status: Acute Code(s): N39.41 - Urge incontinence (7) STILES (nonalcoholic steatohepatitis): Status: Chronic Code(s): K75.81 - Nonalcoholic steatohepatitis (STILES) Plan Plan to change to oral antibiotics Remove DIVYA drain Discharge planning Medications at Discharge Home Medications losartan 100 mg tablet 100 mg PO DAILY 10/29/21 metformin 500 mg tablet 500 mg PO BID 90 days #180 tabs 08/12/23 pantoprazole 40 mg tablet,delayed release 40 mg PO DAILY 1 month #30 tabs 11/18/23 atorvastatin 80 mg tablet 80 mg PO QHS 04/25/25 donepezil 5 mg tablet 5 mg PO DAILY 04/25/25 hydrochlorothiazide 25 mg tablet 25 mg PO DAILY 04/25/25 amoxicillin 875 mg-potassium clavulanate 125 mg tablet 1 tab PO BID #20 tabs 04/28/25 ondansetron 8 mg disintegrating tablet 8 mg PO Q8H PRN nausea and vomiting #10 tabs 04/28/25 tramadol 50 mg tablet 50 mg PO Q8H PRN pain 3 days #10 tabs 05/02/25 Hospital Course Operations None Procedures - (Drain in pelvis via CT guidance) Summary of Care Provided Minutes Spent on Discharge: 15 Hospital Course: She was sent to the ER for evaluation of abdominal pain and fever. She was found to have a pelvic abscess and acute renal injury. She was admitted for antibiotics, drain, cultures, supportive care and monitoring. She improved with fluids, and the pain and nausea resolved with placement of pelvic drain done by interventional radiology. She continued to do well with resolution of her renal injury. She was discharged home with the drain to bulb suction on oral antibiotics with follow up instructions for repeat imaging and drain removal. Physical Exam Const alert, oriented x3 and no apparent distress General Appearance: cooperative and comfortable; Negative for in distress Orientation / Consciousness: oriented to person, oriented to place and oriented to time HEENT normocephalic and head/scalp atraumatic Eyes General Eye: normal appearance of both eyes Neck supple General: normal visual inspection Lymph Lymphatic: no lymphedema noted Chest inspection of chest normal Chest: symmetrical chest wall rise Resp normal respiratory effort, normal air movement, no retractions and no use of accessory muscles Cardio regular rate GI soft to palpation, non-tender and non-distended Narrative: drain with serosanguineous fluid, approximately 5 cc overnight Back/Spine no CVA tenderness Extremity normal to inspection Extremity Narrative: SCDs Skin no rashes or lesions noted and no wounds Neuro oriented x3, CN's II-XII intact bilaterally and moves all extremities Psych mental status grossly normal and thought process normal Weight / BMI Weight Weight: 207 lb 3.752 oz Body Mass Index (BMI) 38.0 ABG / Lab / Microbiology Data 04/27/25 06:02 04/27/25 06:02 Microbiology: Microbiology 04/26/25 12:57 Abs - Pelvic Gram Stain - Final 04/26/25 12:57 Abs - Pelvic Wound Culture - Final No growth aerobically. 04/26/25 12:57 Abs - Pelvic Anaerobic Culture - Final Anaerobic cocci Bacteroides thetaiotaomicron Clostridium group D/C Instructions Additional Activity Instructions: Continue shower only, and all the other restrictions previously mentioned after the pelvic surgery Drain: Suction (Empty daily, measuring and recording output) DC O2, CPAP, BIPAP Needs Home O2 Discharge instructions: No DC home with Oxygen: No Pending Tests Upon Discharge: CT to be scheduled for this coming Friday Please Follow Up With: Randa Ayala MD When: Arrangements will be made for CT scan on Friday and then to follow-up in the office for drain removal. Continue previous restrictions from after surgery last week. Meaningful Use Info Meaningful Use Meaningful Use Diagnoses (Choose all that apply): None applicable Discharge Plan Admission Admit Date/Time: 04/25/25 17:44 Attending Provider: Randa Ayala Primary Care Provider: Paula Barrera Instructions Patient Instructions: Eliseo Klein Drain Tube Dc, Post Op Drain Emptying Sharath, LOCO RN Procedural Sedation Additional Instructions / Restrictions: You are scheduled for a CT Scan friday05/02/25 at 1:oop please arrive a few minutes early. You will go to the 1st floor diagnositics. You are to follow up in the office of Dr. Ayala on friday after the CT. You do not need to schedule an appointment with Dr. Ayala on friday, Just go to her office following the CT Discharge Orders/Prescriptions Prescriptions: New amoxicillin-pot clavulanate 875-125 mg tablet 1 tab PO BID Qty: 20 0RF ondansetron 8 mg tablet,disintegrating 8 mg PO Q8H PRN (Reason: nausea and vomiting) Qty: 10 0RF Continued losartan 100 mg tablet 100 mg PO DAILY metformin 500 mg tablet 500 mg PO BID 90 Days Qty: 180 1RF pantoprazole 40 mg tablet,delayed release (DR/EC) 40 mg PO DAILY 30 Days Qty: 30 4RF Rx Instructions: 1 hour before breakfast atorvastatin 80 mg tablet 80 mg PO QHS donepezil 5 mg tablet 5 mg PO DAILY hydrochlorothiazide 25 mg tablet 25 mg PO DAILY No Action tramadol 50 mg tablet 50 mg PO Q8H PRN (Reason: pain) 3 Days Qty: 10 0RF Other Ambulatory Orders: Abdomen/Pelvis W IV Cont ONLY (Routine) Timeframe: 4 Days Facility: [facility] - Location: [facility] Ordered By: Dr. Randa Ayala Referrals / Follow Up: Paula Barrera DO [Primary Care Provider, Internal Medicine] Disposition Disposition (needs filled in before D/C Order can be placed): Home, Self Care Charges/Coding Urology Urology: Attention Ishaan
== END 2025-04-28 16:00 | disposition home or self-care (01) | DRG 863 ==
LOC: ED 15:28 → MS3 17:55
PROVIDERS: Obstetrics & Gynecology; Admitting Provider Urology; Emergency Provider Emergency Medicine; PCP Internal Medicine; Visit Provider Urology
DX: T81.43XA Infection following a procedure, organ and space surgical site, initial encounter (principal); N17.9 Acute kidney failure, unspecified; N73.0 Acute parametritis and pelvic cellulitis; E11.9 Type 2 diabetes mellitus without complications; K75.81 Nonalcoholic steatohepatitis (NASH); I10 Essential (primary) hypertension; E78.00 Pure hypercholesterolemia, unspecified; E86.0 Dehydration; Y83.6 Removal of other organ (partial) (total) as the cause of abnormal reaction of the patient, or of later complication, without mention of misadventure at the time of the procedure; N32.81 Overactive bladder; N39.41 Urge incontinence; R35.1 Nocturia; R03.0 Elevated blood-pressure reading, without diagnosis of hypertension; Z79.899 Other long term (current) drug therapy; Z79.84 Long term (current) use of oral hypoglycemic drugs; Z87.891 Personal history of nicotine dependence; Z90.710 Acquired absence of both cervix and uterus
CPT/HCPCS: 36415; 74176; 75989; 76830; 80048; 80053; 81001; 82962; 85025; 85610; 87070; 87075; 87077; 87205; 94668; 99156; 99283; Q9967; A4216; J2405

== ENCOUNTER → 2025-05-02 | Outpatient (CLI) | payer MEDICARE, SELFPAY ==
--- NOTE | 2025-05-02 12:00 | CT_ITS ---
PROCEDURE: CT ABD/PELVIS W/WO CONTRAST 05/02/2025 REASON FOR EXAM: KIDNEY LESION Status post pelvic abscess drainage. TECHNIQUE: Procedure Code: [id number] Modality: CT Procedure: CT ABD/PELVIS W/WO CONTRAST Coronal and Sagittal reconstruction series were provided. CONTRAST: Isovue 370 VOLUME: 75 mL One or more dose reduction techniques were used (e.g., Automated exposure control, adjustment of the mA and/or kV according to patient size, use of iterative reconstruction technique. RADIATION DOSE SUMMARY: CTDlvol: 19 mGy DLP: 3536.58 mGycm COMPARISON: Prior study dated April 25, 2025. FINDINGS: Lung bases: Minimal right linear basilar atelectasis. Coronary artery calcification. Liver: Normal size. No mass. Gallbladder: Surgically absent. Minimal degree of central intrahepatic biliary ductal dilatation most likely secondary to the prior cholecystectomy. Spleen: Normal size. Pancreas: Normal size without evidence of mass surrounding inflammation or ductal dilation. Adrenals: Unremarkable. Kidneys: 2 cm cyst in the inferior medial pole of the right kidney. Bladder: Unremarkable Reproductive Organs: Status post hysterectomy. Bowel: Colonic diverticulosis without diverticulitis. Appendix: The appendix is not identified. There is no inflammatory process identified in the right lower quadrant to suggest appendicitis. Lymph nodes: Unremarkable. Vasculature: Mild diffuse atherosclerotic calcifications are noted. Peritoneum / Retroperitoneum: A drainage catheter is seen within the right hemipelvis. The previously seen abscess collection is almost completely resolved. With the patient's history of < 10 cc of drainage. 24 hour., the drain could be removed. Bones: Degenerative changes of the spine. CT/CT Abd/Pelvis W/WO Contrast IMPRESSION: Status post drainage of the pelvic abscess as described. Minimal residual cervantes ges persist. The remainder of the examination is unchanged. Reading Location: [place] [id number]
== END | disposition home or self-care (01) ==
PROVIDERS: PCP Internal Medicine; Referring Provider Urology; Visit Provider Urology
DX: N28.9 Disorder of kidney and ureter, unspecified (principal)
CPT/HCPCS: 74178; Q9967